=== PATIENT | female | born 1940 | race Caucasian/White ===

== ENCOUNTER 2017-10-09 22:02 | Emergency (ER) | payer MEDICARE, MEDICAID, SELFPAY ==
[2017-10-09] VITALS (11 sets, daily range): BP systolic 137–155; BP diastolic 48–58; PULSE 61–73; RESP 16–21; TEMP 36.8; O2SAT 96–100
--- NOTE | 2017-10-09 00:07 | DI.REPORT_ITS ---
SYMPTOM/DIAGNOSIS: S/P FALL. R/O FX CHEST: Single frontal view. Comparison 02/22/17. Heart size and pulmonary vasculature are stable and within normal limits. Sternal wires are in place. The lungs are clear. The bones appear intact. IMPRESSION: No acute abnormality.
--- NOTE | 2017-10-09 00:07 | DI.REPORT_ITS ---
SYMPTOM/DIAGNOSIS: S/P FALL, R/O FX AP PELVIS: No acute fracture or dislocation is seen. Clips are seen in the pelvis. Mild degenerative changes are seen in the lower lumbar spine in the sacroiliac joints. IMPRESSION: No acute fracture or dislocation.
--- NOTE | 2017-10-09 22:54 | ED.GENADUL ---
Disposition Clinical Impression: Fall, Chronic pain, Generalized weakness, Medication reaction, UTI (urinary tract infection) Disposition: STILL A PATIENT Condition: Stable Medical Decision Making - Lab Data Laboratory Tests 10/09/17 10/09/17 10/09/17 22:58 22:58 23:25 WBC 11.24 H RBC 3.81 L Hgb 10.2 L Hct 32.5 L MCV 85.3 MCH 26.8 L MCHC 31.4 L RDW 17.6 H Plt Count 204 MPV 9.3 Immature Gran % 0.4 Neutrophils % 74.6 Lymphocytes % 13.8 Monocytes % 8.9 Eosinophils % 2.1 Basophils % 0.2 Absolute Neutrophils 8.39 H Absolute Lymphocytes 1.55 Absolute Monocytes 1.00 H Absolute Eosinophils 0.24 Absolute Basophils 0.02 Sodium 138 Potassium 4.0 Chloride 99 Carbon Dioxide 31.3 Anion Gap 7.7 BUN 22 H Creatinine 1.57 H Estimated GFR/1.73 m2 31.95 Glucose 114 H Calcium 9.0 Magnesium 2.5 H Total Bilirubin 0.3 AST 17 ALT 18 Alkaline Phosphatase 82 Troponin I < 0.02 Total Protein 7.5 Albumin 3.2 L Urine Color Yellow Urine Clarity Clear Urine pH 7.0 Ur Specific [place] 1.015 Urine Protein Negative Urine Ketones Trace H Urine Blood Negative Urine Nitrite Negative Urine Bilirubin Negative Urine Urobilinogen 0.2 Ur Leukocyte Esterase Trace H Urine RBC 0-2 Urine WBC >50 Ur Epithelial Cells Few Urine Crystals Negative Urine Bacteria Many Urine Casts Negative Urine Mucus Negative Urine Other Few transitional Ur Culture Indicated? Yes Urine Glucose Negative 10/10/17 2321: [address]pm. Sinus. No acute ST elevation or depression. - Radiology Data Radiology results: report reviewed, image reviewed Pelvis x-ray: Negative Chest x-ray: Negative - Medical Decision Making 77-year-old female who presents for fall while walking with walker today. Daughter state they feel her fall was due to generalized weakness. She has had fatigue, weakness and decreased appetite over the past few days. She also had her gabapentin increased 4 days ago. Patient has multiple medical problems and is poorly conditioned at baseline. She is on tramadol, fentanyl patch and gabapentin, multiple medications which can account for her fatigue and weakness. Due to her multiple comorbidities, will check labs, urinalysis, EKG in addition to CT head/C-spine, chest x-ray and pelvis x-ray. She has chronic head, neck, back pain. She has noticed palpation of her midline thoracic and lumbar spine which she states is chronic and appears no different than usual. She was admitted here 3 months ago for an L1 lumbar spine fracture. She was discharged from rehab 1 month ago. [id number] --labs reviewed and notes UTI. White blood cell count 11.24. Patient afebrile. Will order dose of Rocephin. [id number] -- Case endorsed to Dr. Manzano to f/u on imaging results. History of Present Illness - General Chief complaint: Trauma Stated complaint: DEEJAY Time Seen by Provider: 10/09/17 22:03 Source: patient, family Mode of arrival: EMS Limitations: no limitations - History of Present Illness Initial comments: Patient is a 77-year-old female with multiple medical problems including diabetes, hypertension, morbid obesity presents for fall while walking with walker up a ramp tonight. Daughter states that patient recently had her gabapentin increased from 100 mg to 200 mg 3 times daily 4 days ago[address] Her PCP Dr. pitts increase this for patient's chronic hip and neck pain. She is also on tramadol and fentanyl patch. Daughter does admit to increased fatigue, decreased appetite, and generalized weakness for the past 3 days which they are possibly contributing to her increased fatigue due to the increase in gabapentin. She has history of chronic headaches for 3 months. They state when she walked up the ramp tonight she appeared weak and fell and rolled backward. Patient has chronic pain all over at baseline. She thinks she did hit her head but denies any LOC or vomiting. She is admitting to headache, neck pain, chest pain, back pain after fall. - Related Data Folic Acid [Folate] 1 mg PO DAILY 07/04/12 Cyanocobalamin [Vitamin B-12] 1,000 mcg PO DAILY 07/05/12 Flaxseed Oil [Flax Seed Oil] 1,000 mg PO DAILY 07/05/12 GlipiZIDE [Glucotrol] 10 mg PO BID 07/05/12 Ipratropium/Albuterol Sulfate [Duoneb 0.5 mg-3 mg/3 ml Soln] 3 ml IH QID PRN PRN 07/05/12 Nystatin Powder 15 GM [Mycostatin Powder] 1 gm TP BID PRN PRN 07/05/12 Atorvastatin [Lipitor] 20 mg PO DAILY AM 03/11/13 Nebivolol HCl [Bystolic] 10 mg PO TID 03/11/13 Ticagrelor [Brilinta] 90 mg PO BID 03/11/13 Magnesium Oxide [Mag-Ox 400] 400 mg PO BID #60 tab 07/06/13 AmLODIPine [Norvasc] 5 mg PO DAILY 06/27/14 Nitroglycerin [Nitrostat] 1 tab SL PRN PRN 06/27/14 Dicyclomine [Bentyl] 2 tab PO QID PRN 03/05/15 Meclizine HCl 1 - 2 tab PO TID PRN 03/05/15 Omeprazole [PriLOSEC] 40 mg PO BID@07,199904/01/16 Sertraline [Zoloft] 200 mg PO DAILY 05/17/16 Levalbuterol [Xopenex Hfa] 1 - 2 puff IH Q4H PRN PRN inh 05/18/16 Hydrocortisone [Hydrocortisone 2.5% Lotion] 0 ml TP BID PRN 10/08/16 Loratadine 10 mg PO DAILY 10/08/16 MetroNIDAZOLE 0.75% Cream [Metrocream 0.75% Cream] 1 applic TP BID 10/08/16 Vitamin D 2,000 units PO DAILY 10/08/16 Apixaban [Eliquis] 5 mg PO BID #60 tab 02/02/17 Ubidecarenone/Vit E Acetate [Co Q-10 100 mg Softgel] 1 each PO DAILY 05/24/17 Bisacodyl [Dulcolax Suppository] 10 mg HI DAILY PRN PRN supp 08/02/17 Budesonide/Formoterol Fumarate [Symbicort 160/4.5 Mcg Inhaler] 2 puff IH BID #1 inh 08/02/17 Docusate Sodium [Colace] 100 mg PO TID cap 08/02/17 Gabapentin [Neurontin] 300 mg PO TID #90 cap 08/02/17 PredniSONE [Deltasone] 10 mg PO DAILY #30 tab 08/02/17 TraMADol [Ultram] 50 mg PO Q4H PRN PRN #30 tab 08/02/17 FentaNYL [Duragesic] 25 mcg TD Q72H 10/09/17 Levothyroxine Sodium [Synthroid] 150 mcg PO DAILY AM 10/09/17 Prednisone 9 mg PO TODAY 10/09/17 Spironolactone 25 mg PO DAILY AM 10/09/17 Allergies Allergy/AdvReac Type Severity Reaction Status Date / Time aspirin Allergy Severe Anaphylaxsi Unverified 10/09/17 22:35 s morphine Allergy Intermediate Skin Rash Unverified 10/09/17 22:35 NSAIDS (Non-Steroidal Allergy Intermediate Skin Rash Unverified 10/09/17 22:35 Anti-Inflamma Sulfa (Sulfonamide Allergy Intermediate Skin Rash Unverified 10/09/17 22:35 Antibiotics) Quinidine-Quinine Analogues AdvReac Intermediate high fever Unverified 10/09/17 22:35 (Cincho tetanus and diphtheria AdvReac Intermediate Swelling/Ed Unverified 10/09/17 22:35 toxoids rachel [Tetanus&Diphtheria Toxoid] NADIYA Inhibitors AdvReac Mild cough Unverified 10/09/17 22:35 Review of Systems Constitutional: denies: chills, fever Eyes: denies: eye pain ENT: denies: ear pain, dental pain Respiratory: denies: cough, shortness of breath Cardiovascular: denies: chest pain, dyspnea on exertion Gastrointestinal: denies: abdominal pain, nausea, vomiting Genitourinary: denies: urgency, dysuria, frequency Musculoskeletal: back pain Skin: denies: rash, lesions Neurological: denies: headache, weakness, numbness Past Medical History - Past Medical History Medical history: AMI, asthma, CAD, CHF, COPD, diabetes, GERD, hyperlipidemia, hypertension Chronic kidney disease, lymphoma, Hypothyroidism, Brain aneurysm, GI lymphoma treated w/ chemo, now in remission Surgical history: angioplasty/stent, herniorraphy, bilateral tubal ligation (b/l knee replacements, Fem-pop bypass, cataract surgery, carotid endarterectomy), other (bilateral knee replacements, carotid endarterectomy) Family history: no significant family history - Social History Smoking status: never smoker Alcohol use: none Drug use: none General Exam - General Limitations: no limitations General appearance: alert, in no apparent distress - Head Head exam: Present: atraumatic, normocephalic - Eye Eye exam: Present: PERRL, EOMI - ENT ENT exam: Present: mucous membranes dry - Respiratory Respiratory exam: Present: normal lung sounds bilaterally, other (No evidence of trauma). Absent: respiratory distress, wheezes, rales, rhonchi, stridor, chest wall tenderness - Cardiovascular Cardiovascular Exam: Present: regular rate, normal rhythm. Absent: bradycardia, tachycardia - GI/Abdominal GI/Abdominal exam: Present: soft, normal bowel sounds, other (No evidence of trauma). Absent: distended, tenderness, guarding, rebound, rigid - Extremities Exam Extremities exam: Present: full ROM, normal capillary refill, other (No evidence of trauma or deformity to extremities) - Back Exam Back exam: Present: vertebral tenderness (Thoracic and lumbar which is chronic) - Neurological Exam Neurological exam: Present: alert, oriented X3 - Psychiatric Psychiatric exam: Present: normal affect - Skin Skin exam: Present: warm, dry, intact Course Vital Signs - 24 hr 10/09/17 22:29 Temperature 98.2 F Pulse 70 Respiratory 18 Rate Blood Pressure 155/48 Pulse Oximetry 97
[2017-10-09 23:09] LABS: Abs Immature Grans 0.05 k/cumm (0.0-0.09); Absolute Basophil Count 0.02 k/cumm (0.0-0.2); Absolute Eosinophil Count 0.24 k/cumm (0.0-0.7); Absolute Lymphocyte Count 1.55 k/cumm (1.2-3.4); Basophils % 0.2; Eosinophils % 2.1; HCT 32.5 % (36.0-46.0); HGB 10.2 g/dL (12.0-15.5); Immature Grans % 0.4; Lymphocytes % 13.8; Mean Corp. HGB Concentration 31.4 g/dL (32.0-36.0); Mean Corpuscular Hemoglobin 26.8 pg (27.0-33.0); Mean Corpuscular Volume 85.3 fL (80-95); Mean Platelet Volume 9.3 fL (8.0-11.0); Monocytes % 8.9; Neutrophils % 74.6; Platelet Count 204 x1000/uL (130-400); RBC 3.81 m/cumm (4.00-5.20); RBC Distribution Width 17.6 % (11.7-14.6); White Blood Cell Count 11.24 k/cumm (4.4-10.8)
[2017-10-09 23:16] LABS: Absolute Neutrophil Count 8.39 k/cumm (1.2-6.7)
[2017-10-09 23:26] LABS: ALT 18 U/L (12-78); AST 17 U/L (15-37); Albumin 3.2 g/dL (3.4-5.0); Alkaline Phosphatase 82 U/L (46-116); Anion Gap 7.7 mmol/L (3-11); BUN 22 mg/dL (7-18); Bilirubin, Total 0.3 mg/dL (0.2-1.0); CO2 31.3 mmol/L (21.0-32.0); CREATININE 1.57 mg/dL (0.55-1.02); Chloride 99 mmol/L (98-107); Estimated GFR 31.95 (mL/min/1.73m2); Glucose 114 mg/dL (70-100); Magnesium 2.5 mg/dL (1.8-2.4); Sodium 138 mmol/L (136-145); Total Protein 7.5 g/dL (6.4-8.2)
[2017-10-09 23:30] LABS: Troponin I < 0.02 ng/mL (0.00-0.06)
[2017-10-09 23:35] LABS: Bilirubin Negative (Negative); Blood Negative (Negative); Clarity Clear; Glucose Negative (Negative); Ketones Trace mg/dL (Negative); Leukocyte Esterase Trace (Negative); Nitrite Negative (Negative); Specific Gravity 1.015 (1.005-1.025); Urobilinogen 0.2 EU/dL (Up TO 0.2)
--- NOTE | 2017-10-09 23:50 | DI.RPTCT_ITS ---
SYMPTOM/DIAGNOSIS: S/P FALL, R/O ACUTE FRACTURE CT HEAD: Noncontrast. Comparison 10/02/17. Age appropriate cerebral atrophy and small vessel ischemic disease is seen. No intracranial hemorrhage, midline shift or mass effect is identified. No evidence of an acute infarct is seen. No skull fracture is present. The visualized paranasal sinuses are clear. The mastoid air cells are well pneumatized. IMPRESSION: No acute intracranial process. CT CERVICAL SPINE: Multiple contiguous axial images of the cervical spine were obtained. Sagittal and coronal reformatted images were evaluated on the [facility]'s work station. No acute fractures or subluxations of the cervical spine were identified. There are moderate degenerative change throughout the cervical spine. No prevertebral soft tissue swelling is present. IMPRESSION: No acute fractures or subluxations of the cervical spine.
[2017-10-09 23:51] LABS: Bacteria Many HPF (Negative); C & S Indicated? Yes; Casts Negative LPF (Negative); Crystals Negative HPF (Negative); Epithelial Cells Few HPF (Negative); Mucus Negative (Negative); Other Cells Few Transitional (Negative); RBC 0-2 (0-2); WBC >50 HPF (0-5)
--- NOTE | 2017-10-09 23:52 | NUR.NOTE ---
Nursing Note: pt states that she hurts all over she has generalized pain . no obvious injury to knees or arms back was examined by Dr Quan.
--- NOTE | 2017-10-10 00:17 | DI.VRAD_ITS ---
EXAM: XR Pelvis, 1 or 2 Views EXAM DATE/TIME: 10/09/2017 10:54 PM CLINICAL HISTORY: 77 years old, female; Injury or trauma; Fall; Initial encounter; Blunt trauma (contusions or hematomas); Does not apply; Pelvic region; Injury date: 10/09/17; Injury details: Fell and tumbled, pain all over TECHNIQUE: XR pelvis, 1 or 2 views COMPARISON: CT - ABD PELVIS WO CONTRAST 2017-07-26 23:27 FINDINGS: Bones/joints: No acute fracture. Soft tissues: Unremarkable. IMPRESSION: No acute fracture or dislocation. Dictated and Authenticated by: Jermaine Cardenas MD. Ordering:TONO DE LA GARZA MD
--- NOTE | 2017-10-10 00:18 | DI.VRAD_ITS ---
EXAM: XR Chest, 1 View EXAM DATE/TIME: 10/09/2017 12:10 AM CLINICAL HISTORY: 77 years old, female; Injury or trauma; Fall; Work related; Initial encounter; Blunt trauma (contusions or hematomas); Injury date: 10/09/17; Injury details: Fell and tumbled, pain all over; Prior surgery; Surgery date: 6+ months; Surgery type: Heart surgery TECHNIQUE: XR of the chest, 1 view. COMPARISON: CR - CHEST 2 VIEWS PA,LAT 2017-02-22 16:08 FINDINGS: Lungs: Clear lungs. Pleural space: No pneumothorax. No sizable pleural effusion. Heart/Mediastinum: CABG. No cardiomegaly. Bones/joints: Sternotomy. IMPRESSION: Clear lungs. Dictated and Authenticated by: Jermaine Cardenas MD. Ordering:TONO DE LA GARZA MD
--- NOTE | 2017-10-10 00:25 | DI.VRAD_ITS ---
EXAM: CT Head Without Intravenous Contrast CT Cervical Spine Without Intravenous Contrast CLINICAL HISTORY: 77 years old, female; Injury or trauma; Fall; Initial encounter; Blunt trauma (contusions or hematomas); Consciousness not specified; Injury date: 10/09/17; Injury details: Fell and tumbled; Patient HX: Pain all over TECHNIQUE: Axial computed tomography images of the head/brain and cervical spine without intravenous contrast. All CT scans at this facility use at least one of these dose optimization techniques: automated exposure control; mA and/or kV adjustment per patient size (includes targeted exams where dose is matched to clinical indication); or iterative reconstruction. Coronal and sagittal reformatted images were created and reviewed. COMPARISON: CT - HEAD WITHOUT STROKE PROTOCOL 2017-10-02 02:37 FINDINGS: Brain: Age-related involutional changes and chronic microvascular ischemic disease. No evidence for acute transcortical infarct. No mass effect or midline shift. No extra-axial collection. No acute intracranial hemorrhage. Basal cisterns are patent. Ventricles: No ventriculomegaly. Skull: No acute fracture. Sinuses: No significant disease. No acute sinusitis. Mastoid air cells: Tympanomastoid cavities are clear. Orbits: Bilateral cataract surgery. Vertebrae: No acute fracture or traumatic subluxation. No spondylolisthesis. Facet joint alignments are maintained. Discs/spinal canal/neural foramina: Multilevel degenerative changes of the cervical spine. No acute findings. Other bones/joints: Occipital condyles are intact. The atlantooccipital and atlantoaxial articulations are intact. Soft tissues: No prevertebral soft tissue swelling. IMPRESSION: 1. No evidence for acute transcortical infarct, acute intracranial hemorrhage, or mass effect. 2. No acute fracture or traumatic subluxation involving the cervical spine. Dictated and Authenticated by: Jermaine Cardenas MD. Ordering:TONO DE LA GARZA MD
[2017-10-10] MEDS: Normal Saline 1,000 ML 100 ML IV (00:37)
[2017-10-10] MEDS: Normal Saline Flush 10 ML SYR IVP (00:37)
[2017-10-10 01:54] VITALS: BP 133/43; PULSE 66; RESP 18; TEMP 36.7; O2SAT 94
--- NOTE | 2017-10-10 02:21 | ED.FU ---
Disposition Clinical Impression: Fall, Chronic pain, Generalized weakness, Medication reaction, UTI (urinary tract infection) Disposition: HOME Condition: Fair Instructions: Urinary Tract Infection in Women (ED), Chronic Pain (ED), Weakness (ED) Additional Instructions: Start antibiotics this evening. Follow-up with primary care this week to be sure you are doing better. Return to ED for fever, chills, vomiting, inability to ambulate, other concerns. Prescriptions: Amoxicillin 875/Clav. 125 [Augmentin 875-125 Tablet] 1 each PO BID #20 tab Referrals: Perry Graham [Primary Care Provider] - Medical Decision Making - Lab Data Laboratory Tests 10/09/17 10/09/17 10/09/17 22:58 22:58 23:25 WBC 11.24 H RBC 3.81 L Hgb 10.2 L Hct 32.5 L MCV 85.3 MCH 26.8 L MCHC 31.4 L RDW 17.6 H Plt Count 204 MPV 9.3 Immature Gran % 0.4 Neutrophils % 74.6 Lymphocytes % 13.8 Monocytes % 8.9 Eosinophils % 2.1 Basophils % 0.2 Absolute Neutrophils 8.39 H Absolute Lymphocytes 1.55 Absolute Monocytes 1.00 H Absolute Eosinophils 0.24 Absolute Basophils 0.02 Sodium 138 Potassium 4.0 Chloride 99 Carbon Dioxide 31.3 Anion Gap 7.7 BUN 22 H Creatinine 1.57 H Estimated GFR/1.73 m2 31.95 Glucose 114 H Calcium 9.0 Magnesium 2.5 H Total Bilirubin 0.3 AST 17 ALT 18 Alkaline Phosphatase 82 Troponin I < 0.02 Total Protein 7.5 Albumin 3.2 L Urine Color Yellow Urine Clarity Clear Urine pH 7.0 Ur Specific [place] 1.015 Urine Protein Negative Urine Ketones Trace H Urine Blood Negative Urine Nitrite Negative Urine Bilirubin Negative Urine Urobilinogen 0.2 Ur Leukocyte Esterase Trace H Urine RBC 0-2 Urine WBC >50 Ur Epithelial Cells Few Urine Crystals Negative Urine Bacteria Many Urine Casts Negative Urine Mucus Negative Urine Other Few transitional Ur Culture Indicated? Yes Urine Glucose Negative Results reviewed for labs ordered during visit: Yes - Radiology Data Radiology results: report reviewed - Medical Decision Making Imaging studies are negative for acute or traumatic findings. Specifically head and cervical spine are negative for traumatic injury. Chest x-ray and pelvis x-ray negative as well. Laboratory studies are for the most part good. She has some evidence of mild dehydration and has received a fluid bolus. She also has evidence of UTI but has no fever, rigors, flank pain, abdominal pain. She does not look toxic. She was given a dose of IV ceftriaxone. Patient has been up and ambulated through the department. She actually did well. She is complaining more of her chronic pain than anything else. I have told her in the family that chronic pain must be managed as an outpatient which is what her primary care is doing. It is not an indication for admission. Indications for admission would be inability to ambulate because of severe weakness, vomiting, fevers, rigors. She has none of these. She actually at this point wants to try to go home. We will place her on Augmentin and have her follow-up with primary care this week. Return to ED for any worsening symptoms. Discussed with family and patient. Care Signed Out By:: Dr. Cabello - Vital Signs Recent Vitals - 8H: Vital Signs - 8 hr 10/09/17 10/09/17 10/09/17 22:11 22:17 22:20 Temperature Pulse 63 Respiratory 21 19 19 Rate Blood Pressure 137/51 Pulse Oximetry 99 99 100 10/09/17 10/09/17 10/09/17 22:29 22:30 22:31 Temperature 98.2 F Pulse 70 65 Respiratory 18 16 16 Rate Blood Pressure 155/48 146/58 Pulse Oximetry 97 97 96 10/09/17 10/09/17 10/09/17 22:40 22:50 23:00 Temperature Pulse Respiratory 21 19 18 Rate Blood Pressure Pulse Oximetry 98 99 10/09/17 10/09/17 10/10/17 23:10 23:20 01:54 Temperature 98.1 F Pulse 66 Respiratory 19 20 18 Rate Blood Pressure 133/43 Pulse Oximetry 99 94 L - Continuation of Care Continuation of Care Plan: Patient had presented status post fall at home. She was trying to go up a ramp and got weak and fell. She did not have syncope. She has chronic pain. She has been having her pain medications adjusted and recently went up on her gabapentin. She was initially seen and evaluated by Dr. Cabello. She was signed over to me pending imaging studies and return of all laboratory results.
== END 2017-10-10 02:41 | disposition home or self-care (01) ==
PROVIDERS: Physician Assistant; Emergency Provider Emergency Medicine; PCP Family Medicine
DX: R53.1 Weakness (principal); T40.2X5A Adverse effect of other opioids, initial encounter; R51 Headache; G89.29 Other chronic pain; N39.0 Urinary tract infection, site not specified; I12.9 Hypertensive chronic kidney disease with stage 1 through stage 4 chronic kidney disease, or unspecified chronic kidney disease; N18.9 Chronic kidney disease, unspecified; E11.22 Type 2 diabetes mellitus with diabetic chronic kidney disease; Z79.4 Long term (current) use of insulin; J44.9 Chronic obstructive pulmonary disease, unspecified
CPT/HCPCS: 70450; 71045; 72125; 72170; 93005; 96374; 99285 ×2; J0696; 36415; 80053; 87077; 81003; 81015; 83735; 84484; 85025; 87086; 87186; 93010

== ENCOUNTER 2018-01-14 10:59 | Emergency (ER) | payer MEDICARE, MEDICAID, SELFPAY ==
[2018-01-14 11:04] VITALS: BP 155/65; PULSE 58; RESP 16; TEMP 36.5; O2SAT 95
[2018-01-14 11:28] LABS: Bilirubin Negative (Negative); Blood Large (Negative); Clarity Sl Cloudy; Glucose Negative (Negative); Ketones Negative (Negative); Leukocyte Esterase Moderate (Negative); Nitrite Positive (Negative); Urobilinogen 0.2 EU/dL (Up TO 0.2); pH 5.5 (5-8)
--- NOTE | 2018-01-14 11:33 | ED.GENADUL_ITS ---
Discharge Plan Discharge Details Chief Complaint: Urinary Primary Care Provider: Perry Graham ED Provider: Guzman Cheek Home Meds and New Rx's Prescriptions: No Action folic acid 1 MG tablet 1 mg PO DAILY RF: 0 glipizide 10 MG tablet 10 mg PO BID RF: 0 cyanocobalamin (vitamin B-12) [Vitamin B-12] 1,000 MCG tablet 1,000 mcg PO DAILY RF: 0 flaxseed oil 1,000 MG capsule 1,000 mg PO DAILY RF: 0 nystatin 15 GM powder 1 gm Topical BID PRN PRNRF: 0 atorvastatin [Lipitor] 40 MG tablet 20 mg PO DAILY AM RF: 0 ticagrelor [Brilinta] 90 MG tablet 90 mg PO BID RF: 0 nebivolol [Bystolic] 20 MG tablet 10 mg PO TID RF: 0 magnesium oxide 400 MG tablet 400 mg PO BID Qty: 60 RF: 0 amlodipine 10 MG tablet 5 mg PO DAILY RF: 0 nitroglycerin [Nitrostat] 0.4 MG tablet, sublingual 1 tab Sublingual PRN PRNRF: 0 apixaban [Eliquis] 5 MG tablet 5 mg PO BID Qty: 60 RF: 2 omeprazole 20 MG capsule,delayed release(DR/EC) 40 mg PO BID@ RF: 0 sertraline 100 MG tablet 200 mg PO DAILY RF: 0 levalbuterol tartrate [Xopenex HFA] 200 PUFF HFA aerosol inhaler 1 - 2 puff Inhalation Q4H PRN PRNRF: 0 cholecalciferol (vitamin D3) 1,000 UNITS tablet 2,000 units PO DAILY RF: 0 Loratadine 10 MG Capsule 10 mg PO DAILY RF: 0 coenzyme [id number] E [Co Q-10 (with Vit E)] 1 EACH capsule 1 ea PO DAILY RF: 0 tramadol 50 MG tablet 50 mg PO Q4H PRN PRN (Reason: Breakthrough Pain) Qty: 30 RF: 0 docusate sodium [Colace] 100 MG capsule 100 mg PO TID RF: 0 gabapentin 300 MG capsule 300 mg PO TID Qty: 90 RF: 0 budesonide-formoterol [Symbicort] 60 PUFF HFA aerosol inhaler 2 puff Inhalation BID Qty: 1 RF: 0 fentanyl 12 MCG patch 72 hour 25 mcg Transdermal Q72H RF: 0 levothyroxine [Synthroid] 150 MCG tablet 150 mcg PO DAILY AM RF: 0 spironolactone 25 MG tablet 25 mg PO DAILY AM RF: 0 prednisone 1 MG tablet 9 mg PO TODAY RF: 0 amoxicillin-pot clavulanate 1 TAB tablet 1 ea PO BID Qty: 20 RF: 0 Medical Decision Making 77 yo female comes in with what she thinks is blood in her urine as her depends have had blood in them intermittently since last night. Denies fevers, chills, abdominal pain. Has had 50 pounds of weight loss over the past few months unintentionally. SHe is unsure if the blood is urinary or from the vagina. Has chronic back pain that is unchanged and no cva tenderness. Will check UA and cbc and coags. Will also perform speculum exam to see if the bleeding is coming from the vagina Differential Diagnosis uti, bladder cancer, uterine cancer HPI General Mode of arrival: ambulatory . Date/Time Provider Initiated Documentation: 01/14/18 11:05 . Limitations to Documentation: no limitations . Information obtained by: patient and family . History of Present Illness 77 year old F presents to the emergency department with the chief complaint of blood in depends, Patient started experiencing this day(s) (1) No relieving factors improve symptom(s), No exacerbating factors reported . Patient did receive the following treatments prior to arrival, none Related Data Home Medications Medication Instructions Recorded Confirmed folic acid 1 mg PO DAILY 07/04/12 10/09/17 cyanocobalamin (vitamin B-12) 1,000 mcg PO DAILY 07/05/12 10/09/17 [Vitamin B-12] flaxseed oil 1,000 mg PO DAILY 07/05/12 10/09/17 glipizide 10 mg PO BID 07/05/12 10/09/17 nystatin 1 gm TOPICAL BID PRN PRN 07/05/12 10/09/17 atorvastatin [Lipitor] 20 mg PO DAILY AM 03/11/13 10/09/17 nebivolol [Bystolic] 10 mg PO TID 03/11/13 10/09/17 ticagrelor [Brilinta] 90 mg PO BID 03/11/13 10/09/17 magnesium oxide 400 mg PO BID #60 tab 07/06/13 10/09/17 amlodipine 5 mg PO DAILY 06/27/14 10/09/17 nitroglycerin [Nitrostat] 1 tab SUBLINGUAL PRN PRN 06/27/14 10/09/17 omeprazole 40 mg PO BID@0730,199904/01/16 10/09/17 sertraline 200 mg PO DAILY 05/17/16 10/09/17 levalbuterol tartrate [Xopenex HFA] 1 - 2 puff INHALATION Q4H PRN PRN 05/18/16 10/09/17 inh Loratadine 10 mg PO DAILY 10/08/16 10/09/17 cholecalciferol (vitamin D3) 2,000 units PO DAILY 10/08/16 10/09/17 apixaban [Eliquis] 5 mg PO BID #60 tab 02/02/17 10/09/17 coenzyme A70-[id number] E [Co Q-10 1 ea PO DAILY 05/24/17 10/09/17 (with Vit E)] budesonide-formoterol [Symbicort] 2 puff INHALATION BID #1 inh 08/02/17 10/09/17 docusate sodium [Colace] 100 mg PO TID cap 08/02/17 10/09/17 gabapentin 300 mg PO TID #90 cap 08/02/17 10/09/17 tramadol 50 mg PO Q4H PRN PRN #30 tab 08/02/17 10/09/17 fentanyl 25 mcg TRANSDERMAL Q72H 10/09/17 10/09/17 levothyroxine [Synthroid] 150 mcg PO DAILY AM 10/09/17 10/09/17 prednisone 9 mg PO TODAY 10/09/17 10/09/17 spironolactone 25 mg PO DAILY AM 10/09/17 10/09/17 amoxicillin-pot clavulanate 1 ea PO BID #20 tab 10/10/17 Previous Rx's Medication Instructions Recorded magnesium oxide 400 mg PO BID #60 tab 07/06/13 levalbuterol tartrate [Xopenex HFA] 1 - 2 puff INHALATION Q4H PRN PRN 05/18/16 inh apixaban [Eliquis] 5 mg PO BID #60 tab 02/02/17 budesonide-formoterol [Symbicort] 2 puff INHALATION BID #1 inh 08/02/17 docusate sodium [Colace] 100 mg PO TID cap 08/02/17 gabapentin 300 mg PO TID #90 cap 08/02/17 tramadol 50 mg PO Q4H PRN PRN #30 tab 08/02/17 amoxicillin-pot clavulanate 1 ea PO BID #20 tab 10/10/17 Allergies Allergy/AdvReac Type Severity Reaction Status Date / Time aspirin Allergy Severe Anaphylaxsi Unverified 10/09/17 22:35 s morphine Allergy Intermediate Skin Rash Unverified 10/09/17 22:35 NSAIDS (Non-Steroidal Allergy Intermediate Skin Rash Unverified 10/09/17 22:35 Anti-Inflamma Sulfa (Sulfonamide Allergy Intermediate Skin Rash Unverified 10/09/17 22:35 Antibiotics) Quinidine-Quinine Analogues AdvReac Intermediate high fever Unverified 10/09/17 22:35 (Cincho tetanus and diphtheria AdvReac Intermediate Swelling/Ed Unverified 10/09/17 22: 35 toxoids rachel [Tetanus&Diphtheria Toxoid] NADIYA Inhibitors AdvReac Mild cough Unverified 10/09/17 22:35 General Stated Complaint: Urinary ELISE: 4 Review of Systems Review of Systems All systems reviewed & are unremarkable except as noted in HPI and below Constitutional Denies chills and Denies fever(s) Eyes Denies loss of vision ENT Denies change in voice Cardiovascular Denies chest pain and Denies dyspnea Respiratory Denies dyspnea Gastrointestinal Denies abdominal pain, Denies nausea and Denies vomiting Genitourinary Denies dysuria Musculoskeletal Denies joint swelling Integumentary/Breasts Denies rash Neurologic Denies loss of vision Psychiatric Denies depression Endocrine Denies cold intolerance and Denies heat intolerance Allergic/Immunologic Denies urticaria PFSH Medical History Anemia Anxiety Asthma CAD (coronary artery disease) DM (diabetes mellitus) Hx of CABG Hypothyroidism PVD (peripheral vascular disease) Social History Smoking/Tobacco Use Status: Never Exam Const General: no acute distress Orientation: alert [facility] Head: normal to inspection Ears: external ears normal General nose exam: external nose normal Mouth: moist mucous membranes Eyes General: appearance normal, both eyes and all related structures Neck Neck: normal visual inspection Resp Effort & Inspection: normal respiratory effort and able to speak in complete sentences Cardio Rate: regular rate Skin General skin exam: no rashes or lesions noted Neuro General: alert and oriented x3 Extrem General: normal to inspection Psych Mental Status: mental status grossly normal Course Vital Signs Temperature 36.5 C 01/14/18 11:04 Pulse 58 L 01/14/18 11:04 Respiratory Rate 16 01/14/18 11:04 Blood Pressure 155/65 H 01/14/18 11:04 Pulse Oximetry 95 01/14/18 11:04 Temperature 36.5 C 01/14/18 11:04 Temperature Source Temporal Artery Scan 01/14/18 11:04 Pulse 58 L 01/14/18 11:04 Respiratory Rate 16 01/14/18 11:04 Blood Pressure 155/65 H 01/14/18 11:04 Blood Pressure Position Sitting 01/14/18 11:04 Pulse Oximetry 95 01/14/18 11:04 Oxygen Delivery Method Room Air 01/14/18 11:04 Oxygen Flow Rate 0 01/14/18 11:04 Pain Level 5 01/14/18 11:04
[2018-01-14 11:40] LABS: Bacteria Many HPF (Negative); C & S Indicated? No/Sq. Contamination; Casts Negative LPF (Negative); Crystals Negative HPF (Negative); Epithelial Cells Moderate HPF (Negative); Mucus Negative (Negative); Other Cells Rare Renal (Negative); RBC 20-50 (0-2); WBC >50 HPF (0-5)
[2018-01-14 12:12] LABS: Abs Immature Grans 0.04 k/cumm (0.0-0.09); Absolute Lymphocyte Count 1.78 k/cumm (1.2-3.4); Absolute Monocyte Count 0.71 k/cumm (0.11-0.7); Absolute Neutrophil Count 8.52 k/cumm (1.2-6.7); Basophils % 0.4; Eosinophils % 2.5; HCT 30.1 % (36.0-46.0); Immature Grans % 0.4; Lymphocytes % 15.6; Mean Corp. HGB Concentration 31.2 g/dL (32.0-36.0); Mean Corpuscular Hemoglobin 26.2 pg (27.0-33.0); Mean Corpuscular Volume 83.8 fL (80-95); Mean Platelet Volume 9.3 fL (8.0-11.0); Monocytes % 6.2; Neutrophils % 74.9; Platelet Count 252 x1000/uL (130-400); RBC 3.59 m/cumm (4.00-5.20); RBC Distribution Width 17.1 % (11.7-14.6); White Blood Cell Count 11.38 k/cumm (4.4-10.8)
[2018-01-14 12:16] LABS: Absolute Basophil Count 0.05 k/cumm (0.0-0.2); Absolute Eosinophil Count 0.28 k/cumm (0.0-0.7)
[2018-01-14 12:18] LABS: HGB 9.4 g/dL (12.0-15.5)
[2018-01-14 12:24] LABS: ALT 18 U/L (12-78); AST 22 U/L (15-37); Albumin 3.2 g/dL (3.4-5.0); Alkaline Phosphatase 89 U/L (46-116); Anion Gap 8.3 mmol/L (3-11); BUN 22 mg/dL (7-18); Bilirubin, Total 0.5 mg/dL (0.2-1.0); CO2 28.7 mmol/L (21.0-32.0); CREATININE 1.25 mg/dL (0.55-1.02); Chloride 100 mmol/L (98-107); Estimated GFR 41.56 (mL/min/1.73m2); Glucose 63 mg/dL (70-100); Potassium 3.8 mmol/L (3.5-5.1); Sodium 137 mmol/L (136-145); Total Protein 7.9 g/dL (6.4-8.2)
[2018-01-14 12:28] LABS: PTT Activated 28.9 sec (21.0-31.4); Prothrombin Time 11.2 sec (9.3-10.8)
[2018-01-14 12:34] LABS: INR 1.1 (1.0-3.5)
== END 2018-01-14 12:46 | disposition home or self-care (01) ==
LOC: ER 12:47
PROVIDERS: Emergency Provider Emergency Medicine; PCP Family Medicine
DX: N93.9 Abnormal uterine and vaginal bleeding, unspecified (principal); N39.0 Urinary tract infection, site not specified; R63.4 Abnormal weight loss; Z79.01 Long term (current) use of anticoagulants; I12.9 Hypertensive chronic kidney disease with stage 1 through stage 4 chronic kidney disease, or unspecified chronic kidney disease; N18.9 Chronic kidney disease, unspecified; E11.22 Type 2 diabetes mellitus with diabetic chronic kidney disease
CPT/HCPCS: 36415; 80053; 99284; 81003; 81015; 85025; 85610; 85730

== ENCOUNTER 2018-03-05 07:09 | Inpatient (IN) | payer MEDICARE, MEDICAID, SELFPAY ==
[2018-03-05] VITALS (66 sets, daily range): BP systolic 101–164; BP diastolic 35–105; PULSE 49–63; RESP 12–27; TEMP 36.5–37.1; O2SAT 82–99
--- NOTE | 2018-03-05 07:19 | DI.CT_ITS ---
SYMPTOM/DIAGNOSIS: PAIN, S/P FALL, ON ELIQUIS NONCONTRAST HEAD CT: Comparison is made with 10/09/17. No intracranial hemorrhage, mass or acute infarct is seen. There is mild atrophy and mild patchiness of the white matter consistent with small vessel disease again noted. There is no change in ventricular size. There is no evidence of skull fracture. The sinuses and mastoid air cells are unremarkable. IMPRESSION: No acute abnormality. CERVICAL SPINE CT: The exam is somewhat limited by motion. There is no evidence of an acute fracture. There are degenerative disc changes greatest at C 3-4 and C 5-6. IMPRESSION: Degenerative changes. No acute abnormality. LUMBAR SPINE CT: Comparison is made with 07/26/17. The previous exam showed a mild compression fracture of the superior endplate of L 1. There is now severe compression fracture of L 1 of approximately two thirds. There is now also mild compression fracture of the superior endplate of L 3. Degenerative disc changes and facet degenerative changes are noted. IMPRESSION: Acute mild compression fracture of L 3. Interval worsening of the previously noted L 1 compression fracture, now severe.
--- NOTE | 2018-03-05 07:21 | ED.GENADUL_ITS ---
Discharge Plan Disposition Patient Disposition: STILL A PATIENT Condition: Stable Discharge Details Chief Complaint: GenMedical Clinical Impression: Fall Reason For Visit: DEEJAY Primary Care Provider: Perry Graham ED Provider: Guzman Cheek Home Meds and New Rx's Prescriptions: No Action folic acid 1 MG tablet 1 mg PO DAILY RF: 0 glipizide 10 MG tablet 10 mg PO BID RF: 0 cyanocobalamin (vitamin B-12) [Vitamin B-12] 1,000 MCG tablet 1,000 mcg PO DAILY RF: 0 flaxseed oil 1,000 MG capsule 1,000 mg PO DAILY RF: 0 nystatin 15 GM powder 1 gm Topical BID PRN PRNRF: 0 atorvastatin [Lipitor] 40 MG tablet 20 mg PO DAILY AM RF: 0 ticagrelor [Brilinta] 90 MG tablet 90 mg PO BID RF: 0 nebivolol [Bystolic] 20 MG tablet 10 mg PO TID RF: 0 magnesium oxide 400 MG tablet 400 mg PO BID Qty: 60 RF: 0 amlodipine 10 MG tablet 5 mg PO DAILY RF: 0 nitroglycerin [Nitrostat] 0.4 MG tablet, sublingual 1 tab Sublingual PRN PRNRF: 0 apixaban [Eliquis] 5 MG tablet 5 mg PO BID Qty: 60 RF: 2 omeprazole 20 MG capsule,delayed release(DR/EC) 40 mg PO BID@729,1999 RF: 0 sertraline 100 MG tablet 200 mg PO DAILY RF: 0 levalbuterol tartrate [Xopenex HFA] 200 PUFF HFA aerosol inhaler 1 - 2 puff Inhalation Q4H PRN PRNRF: 0 cholecalciferol (vitamin D3) 1,000 UNITS tablet 2,000 units PO DAILY RF: 0 Loratadine 10 MG Capsule 10 mg PO DAILY RF: 0 coenzyme [id number] E [Co Q-10 (with Vit E)] 1 EACH capsule 1 ea PO DAILY RF: 0 tramadol 50 MG tablet 50 mg PO Q4H PRN PRN (Reason: Breakthrough Pain) Qty: 30 RF: 0 docusate sodium [Colace] 100 MG capsule 100 mg PO TID RF: 0 gabapentin 300 MG capsule 300 mg PO TID Qty: 90 RF: 0 budesonide-formoterol [Symbicort] 60 PUFF HFA aerosol inhaler 2 puff Inhalation BID Qty: 1 RF: 0 fentanyl 12 MCG patch 72 hour 25 mcg Transdermal Q72H RF: 0 levothyroxine [Synthroid] 150 MCG tablet 150 mcg PO DAILY AM RF: 0 spironolactone 25 MG tablet 25 mg PO DAILY AM RF: 0 prednisone 1 MG tablet 9 mg PO TODAY RF: 0 amoxicillin-pot clavulanate 1 TAB tablet 1 ea PO BID Qty: 20 RF: 0 ciprofloxacin HCl 500 mg tablet 500 mg PO BID Qty: 14 RF: 0 Medical Decision Making 77 yo female with hx of pe's on eliquis comes in after a fall. She states her walker gave out when a spring broke and she fell, denies loc. Denies preceding symptoms such as chest pain, sob, abd pain and has none now. Has mild headache, lower left neck pain and lumbar pain in the midline without saddle anesthesia. Has no pain in extremities and has full rom. No abdominal tenderness. Will image head and c spine and lumbar spine pt to be signed out to oncoming provider to f/u on imaging and dispostiion Differential Diagnosis tbi, strain, contusion HPI General Mode of arrival: EMS . Date/Time Provider Initiated Documentation: 03/05/18 07:14 . Limitations to Documentation: no limitations . Information obtained by: patient . History of Present Illness 77 year old F presents to the emergency department with the chief complaint of fall, described as moderate, and is localized to the head. Patient reports no radiation. Patient started experiencing this hour(s) (1) and it has been constant. No relieving factors improve symptom(s), No exacerbating factors reported . Patient notes other (back pain). Patient did receive the following treatments prior to arrival, none Related Data Home Medications Medication Instructions Recorded Confirmed folic acid 1 mg PO DAILY 07/04/12 01/14/18 cyanocobalamin (vitamin B-12) 1,000 mcg PO DAILY 07/05/12 01/14/18 [Vitamin B-12] flaxseed oil 1,000 mg PO DAILY 07/05/12 01/14/18 glipizide 10 mg PO BID 07/05/12 01/14/18 nystatin 1 gm TOPICAL BID PRN PRN 07/05/12 01/14/18 atorvastatin [Lipitor] 20 mg PO DAILY AM 03/11/13 01/14/18 nebivolol [Bystolic] 10 mg PO TID 03/11/13 01/14/18 ticagrelor [Brilinta] 90 mg PO BID 03/11/13 01/14/18 magnesium oxide 400 mg PO BID #60 tab 07/06/13 01/14/18 amlodipine 5 mg PO DAILY 06/27/14 01/14/18 nitroglycerin [Nitrostat] 1 tab SUBLINGUAL PRN PRN 06/27/14 01/14/18 omeprazole 40 mg PO BID@07,199904/01/16 01/14/18 sertraline 200 mg PO DAILY 05/17/16 01/14/18 levalbuterol tartrate [Xopenex HFA] 1 - 2 puff INHALATION Q4H PRN PRN 05/18/16 01/14/18 inh Loratadine 10 mg PO DAILY 10/08/16 01/14/18 cholecalciferol (vitamin D3) 2,000 units PO DAILY 10/08/16 01/14/18 apixaban [Eliquis] 5 mg PO BID #60 tab 02/02/17 01/14/18 coenzyme Q30-[id number] E [Co Q-10 1 ea PO DAILY 05/24/17 01/14/18 (with Vit E)] budesonide-formoterol [Symbicort] 2 puff INHALATION BID #1 inh 08/02/17 01/14/18 docusate sodium [Colace] 100 mg PO TID cap 08/02/17 01/14/18 gabapentin 300 mg PO TID #90 cap 08/02/17 01/14/18 tramadol 50 mg PO Q4H PRN PRN #30 tab 08/02/17 01/14/18 fentanyl 25 mcg TRANSDERMAL Q72H 10/09/17 01/14/18 levothyroxine [Synthroid] 150 mcg PO DAILY AM 10/09/17 01/14/18 prednisone 9 mg PO TODAY 10/09/17 01/14/18 spironolactone 25 mg PO DAILY AM 10/09/17 01/14/18 amoxicillin-pot clavulanate 1 ea PO BID #20 tab 10/10/17 01/14/18 ciprofloxacin HCl 500 mg PO BID #14 tab 01/14/18 Previous Rx's Medication Instructions Recorded magnesium oxide 400 mg PO BID #60 tab 07/06/13 levalbuterol tartrate [Xopenex HFA] 1 - 2 puff INHALATION Q4H PRN PRN 05/18/16 inh apixaban [Eliquis] 5 mg PO BID #60 tab 02/02/17 budesonide-formoterol [Symbicort] 2 puff INHALATION BID #1 inh 08/02/17 docusate sodium [Colace] 100 mg PO TID cap 08/02/17 gabapentin 300 mg PO TID #90 cap 08/02/17 tramadol 50 mg PO Q4H PRN PRN #30 tab 08/02/17 amoxicillin-pot clavulanate 1 ea PO BID #20 tab 10/10/17 ciprofloxacin HCl 500 mg PO BID #14 tab 01/14/18 Allergies Allergy/AdvReac Type Severity Reaction Status Date / Time aspirin Allergy Severe Anaphylaxsi Unverified 10/09/17 22:35 s morphine Allergy Intermediate Skin Rash Unverified 10/09/17 22:35 NSAIDS (Non-Steroidal Allergy Intermediate Skin Rash Unverified 10/09/17 22:35 Anti-Inflamma Sulfa (Sulfonamide Allergy Intermediate Skin Rash Unverified 10/09/17 22:35 Antibiotics) Quinidine-Quinine Analogues AdvReac Intermediate high fever Unverified 10/09/17 22:35 (Cincho tetanus and diphtheria AdvReac Intermediate Swelling/Ed Unverified 10/09/17 22:35 toxoids rachel [Tetanus&Diphtheria Toxoid] NADIYA Inhibitors AdvReac Mild cough Unverified 10/09/17 22:35 General Stated Complaint: GenMedical ELISE: 3 Review of Systems Review of Systems All systems reviewed & are unremarkable except as noted in HPI and below Constitutional Denies chills, Denies fever(s) and Denies weakness Eyes Denies loss of vision ENT Denies change in voice Cardiovascular Denies chest pain and Denies dyspnea Respiratory Denies dyspnea Gastrointestinal Denies abdominal pain, Denies nausea and Denies vomiting Genitourinary Denies dysuria Musculoskeletal Denies joint swelling Integumentary/Breasts Denies rash Neurologic Denies loss of vision and Denies weakness Psychiatric Denies depression PFSH Social History Smoking/Tobacco Use Status: Never Exam Const General: no acute distress Orientation: alert HENMT Head: normal to inspection Ears: external ears normal General nose exam: external nose normal Mouth: moist mucous membranes Eyes General: appearance normal, both eyes and all related structures Neck Neck: normal visual inspection Resp Effort & Inspection: normal respiratory effort and able to speak in complete sentences Cardio Rate: regular rate Back/Spine/Pelvis Back: no CVA tenderness Skin General skin exam: no rashes or lesions noted Neuro General: alert and oriented x3 Extrem General: normal to inspection Psych Mental Status: mental status grossly normal Course Vital Signs Temperature 37.1 C 03/05/18 07:04 Pulse 63 03/05/18 07:04 Respiratory Rate 16 03/05/18 07:04 Blood Pressure 139/57 L 03/05/18 07:04 Pulse Oximetry 99 03/05/18 07:04 Temperature 37.1 C 03/05/18 07:04 Temperature Source Temporal Artery Scan 03/05/18 07:04 Pulse 63 03/05/18 07:04 Respiratory Rate 16 03/05/18 07:04 Blood Pressure 139/57 L 03/05/18 07:04 Blood Pressure Position Sitting 03/05/18 07:04 Pulse Oximetry 99 03/05/18 07:04 Oxygen Delivery Method Room Air 03/05/18 07:04 Oxygen Flow Rate 0 03/05/18 07:04 Pain Level 10 03/05/18 07:04 Comment 03/05/18 07:04
[2018-03-05] MEDS: Acetaminophen 500 MG TAB (07:26)
--- NOTE | 2018-03-05 08:25 | DI.VRAD_ITS ---
EXAM: CT Head Without Contrast EXAM DATE/TIME: 03/05/2018 7:20 AM CLINICAL HISTORY: 77 years old, female; Injury or trauma; Fall; Initial encounter; Sprain or strain, cervical ligaments TECHNIQUE: Axial computed tomography images of the head/brain without contrast. Coronal and sagittal reformatted images were created and reviewed. COMPARISON: No relevant prior studies available. FINDINGS: Brain: Moderate cerebral atrophy. Patchy low attenuation in the periventricular white matter, consistent with small vessel ischemic change. No hemorrhage. Ventricles: Normal. No ventriculomegaly. Bones/joints: Normal. No acute fracture. Sinuses: Mild mucosal thickening, right ethmoid and both maxillary sinuses. Polyp/retention cyst, right ethmoid sinus. Polyp/retention cyst, left maxillary sinus. Mastoid air cells: Normal as visualized. No mastoid effusion. Soft tissues: Unremarkable. IMPRESSION: No acute intracranial abnormalities. EXAM: CT Cervical Spine Without Contrast EXAM DATE/TIME: 03/05/2018 7:20 AM CLINICAL HISTORY: 77 years old, female; Injury or trauma; Fall; Initial encounter; Sprain or strain, cervical ligaments TECHNIQUE: Axial computed tomography images of the cervical spine without intravenous contrast. Coronal and sagittal reformatted images were created and reviewed. COMPARISON: No relevant prior studies available. FINDINGS: Vertebrae: Scattered facet joint arthropathy, moderate. Mild torticollis, convex to the right. Good alignment. No fractures. Discs/Spinal canal/Neural foramina: Multilevel degenerative disc changes, mild to moderate. Degenerative disc changes most prominent at C5-6. Soft tissues: Unremarkable. Lungs: Lung apices are normal. Vasculature: Bilateral carotid artery calcification, mild. IMPRESSION: 1. No acute findings. 2. No fractures. Dictated and Authenticated by: Elliott Ford MD. Ordering:SHELIA Hinds MD
--- NOTE | 2018-03-05 08:53 | DI.VRAD_ITS ---
Addendum created by Gabriele Prince MD on 03/05/2018 9:24:46 AM EST Addendum: Prior study from July 2017 has been obtained. Significant compression has occurred in L1 since July. Initial report created on 03/05/2018 8:53:39 AM EST EXAM: CT Lumbar Spine Without Contrast EXAM DATE/TIME: 03/05/2018 7:20 AM CLINICAL HISTORY: 77 years old, female; Injury or trauma; Fall; Initial encounter; Sprain or strain, lumbar ligaments TECHNIQUE: Axial computed tomography images of the lumbar spine without intravenous contrast. Coronal and sagittal reformatted images were created and reviewed. COMPARISON: Lumbar spine 07/26/17. Only the report is available for review. Prior images have been requested FINDINGS: Vertebrae: Acute compression fracture of L3 of 13%. No retropulsion of fracture fragments. There is significant compression of L1 which was described as mild on the prior study. It now has over 60% compression. It is unhealed. Consequently it has progressed. Discs/Spinal canal/Neural foramina: Broad-based disc bulge at T12/L1 and L1/L2. Large disc herniation at L2/L3 in the midline and to the left (3:32). Broad-based disc bulge, facet hypertrophy, and ligament hypertrophy at L3/L4 and L4/L5 consistent with spinal stenosis. Focal disc herniation at L5/S1 Soft tissues: Unremarkable. Gallbladder and bile ducts: Possible gallstones in the gallbladder Normal appendix IMPRESSION: 1. There is significant compression of L1 which was described as mild on the prior study. It now has over 60% compression. It is unhealed. Consequently it has progressed. 2. Acute compression fracture of L3 of 13%. No retropulsion of fracture fragments. 3. Broad-based disc bulge at T12/L1 and L1/L2. Recommend MRI 4. Large disc herniation at L2/L3 in the midline and to the left (3:32). Recommend MRI 5. Broad-based disc bulge, facet hypertrophy, and ligament hypertrophy at L3/L4 and L4/L5 consistent with spinal stenosis. Recommend MRI 6. Focal disc herniation at L5/S1. Recommend MRI Dictated and Authenticated by: Gabriele Prince MD. Ordering:SHELIA Hinds MD
--- NOTE | 2018-03-05 10:48 | NUR.NOTE ---
pt. is resting comfortably, awaiting MD re-eval and disposition.
--- NOTE | 2018-03-05 11:18 | DI.RAD_ITS ---
SYMPTOMS/DIAGNOSIS: TRAUMA, LT HIP PAIN PELVIS AND LEFT HIP: Comparison is made with 6Aug18. No fracture or dislocation is seen. There is mild acetabular spurring. Surgical clips are again noted in the pelvis. IMPRESSION: No acute abnormality.
--- NOTE | 2018-03-05 11:40 | NUR.NOTE ---
Pt. in [place], in NAD.
--- NOTE | 2018-03-05 14:55 | HPE_ITS ---
Date of service: 03/05/18 Time of Service: 14:51 Assessment and Plan (1) Lumbar compression fracture: Current visit: Yes Status: Acute Recent fall has caused a new compression fracture at L3 and worsening of a previous compression fracture at L1. On prior admission she has required extensive rehabilitation because of her underlying chronic pain and overall disability. Will monitor in observation status, physical therapy consult, pain control using acetaminophen, tramadol, Duragesic patch, Lidoderm patch. She overall looks reasonably comfortable we will see how she does mobilizing. She did fall while on Eliquis, no evidence of bleeding dyscrasia at this time. (2) Aortic stenosis, moderate: Current visit: Yes Status: Chronic She has a harsh systolic murmur diagnosed by echocardiogram 07/2017 as moderate aortic stenosis. No evidence of congestive heart failure or end-stage sequelae. (3) Falls frequently: Current visit: Yes Status: Acute Patient suffers frequent falls. She is unstable on her feet. This is a worrisome situation given that she has been anticoagulated. She seems at high risk for complications from anticoagulation. Plan is to hold the Eliquis at this time. Her pulmonary embolism is quite remote and one could argue that she no longer needs full dose anticoagulation. (4) Compression fracture of L1 lumbar vertebra: Current visit: Yes Status: Chronic Physical therapy and pain control (5) CAD (coronary artery disease): Current visit: Yes Status: Chronic (6) Pulmonary embolism: Current visit: Yes Status: Chronic No evidence of any respiratory compromise at this time. Hold Eliquis at this time. (7) Decubital ulcer: Current visit: Yes Status: Acute Small decubital ulcer. Family notes it has been draining. We will ask the wound care nurse to consult on this. She is quite sedentary and there is likely ongoing pressure issues per (8) Open wound of scapular region without complication: Current visit: Yes Status: Acute Abrasion of the left scapula 02/26/2018. This is superficial and does not appear infected. Local wound care measures as per wound care nurse. (9) Discharge planning issues: Current visit: Yes Status: Acute Admitted to observation status. She is a full code. History of Present Illness Chief Complaint: Fall with back pain Narrative: This is a 77-year-old woman who recently moved back into her own home on 03/03/2018. Prior to that she had been living with her daughter since December because of loss of ADLs, frequent falls, compression fracture. She had only been home for 2 days, required constant attention from her daughter including all of her meals. Apparently the today she was ambulating with her wheeled walker when the walker gave out. She fell, unwitnessed, striking her back and some part of the walker struck her in the head. There was no loss of consciousness. She did not describe any prodrome of dizziness or syncope. In the emergency room workup included a CT of the head and neck as well as plain films of her hip and CT of the hip and pelvis. A CT scan of the lumbar spine showed worsening compression of the L1 compression fracture from July 2017 and a new compression fracture in L3. She is admitted for pain control and physical therapy. Review of Systems Constitutional Denies excessive sweating, Reports frequent falls, Denies headache(s) and Denies weakness Eyes Denies other visual disturbances ENT Reports dizziness, Denies headache(s) and Denies throat swelling Cardiovascular Denies chest pain (Describes some focal chest tenderness near her previous thoracotomy site), Denies edema, Denies dyspnea, Denies dyspnea on exertion and Denies orthopnea Respiratory Denies dyspnea and Denies dyspnea on exertion Gastrointestinal Denies diarrhea, Denies nausea and Denies vomiting Genitourinary Denies urinary frequency and Denies urinary incontinence Musculoskeletal Denies back pain and Denies deformity Integumentary/Breasts Denies rash, Denies sores and Reports wounds (Left scapular area sustained a skin tear on 02/26/2018) Neurologic Denies confusion, Reports dizziness, Reports frequent falls, Denies headache(s), Denies focal weakness and Denies weakness Psychiatric Denies confusion, Denies depression and Denies suicidal ideation Endocrine Denies excessive sweating Hematologic/Lymphatic Denies easy bleeding and Denies easy bruising Allergic/Immunologic Denies urticaria and Denies throat swelling [facility] Medical History Open wound of scapular region without complication (Acute) Decubital ulcer (Acute) Pulmonary embolism (Chronic) Hx of CABG (Resolved ~2000) PVD (peripheral vascular disease) (Chronic) Anemia (Chronic) Cholelithiasis without cholecystitis (Chronic) LVH (left ventricular hypertrophy) (Chronic) CAD (coronary artery disease) (Chronic) Asthma (Chronic) Low back pain (Chronic) Peripheral vascular disease (Chronic) CKD (chronic kidney disease), stage III (Chronic) Morbid obesity (Chronic) Anxiety (Chronic) Hypothyroidism (Chronic) Type 2 diabetes mellitus (Chronic) Vitamin B 12 deficiency (Chronic) Polymyalgia rheumatica (Chronic) Venous stasis dermatitis of both lower extremities (Chronic) Compression fracture of L1 lumbar vertebra (Chronic ~07/2017) Falls frequently (Acute) Decreased performance of ADLs (Acute) Acute prerenal azotemia (Resolved) Aortic stenosis, moderate (Chronic ~07/2017) Social History Smoking/Tobacco Use Status: Never additional social history: Lives alone in her own home since 03/03/2018. Prior to that was living with her daughter from December 2017 until 03/03/2018. She was at a longterm in [place] prior to moving in with her daughter. She was discharged [facility] July 2017 to [facility] and was transferred to [place] from there. Lifelong non-smoker. Alcohol is not a problem for her. Meds Home Medications Medication Instructions Recorded Confirmed Type folic acid 1 mg PO DAILY 07/04/12 03/05/18 History cyanocobalamin (vitamin B-12) 1,000 mcg PO DAILY 07/05/12 03/05/18 History [Vitamin B-12] glipizide 10 mg PO BID 07/05/12 03/05/18 History nystatin 1 gm TOPICAL BID PRN PRN 07/05/12 03/05/18 History Brilinta 90 mg PO BID 03/11/13 03/05/18 History Bystolic 10 mg PO TID 03/11/13 03/05/18 History atorvastatin [Lipitor] 20 mg PO DAILY AM 03/11/13 03/05/18 History magnesium oxide 400 mg PO BID #60 tab 07/06/13 03/05/18 Rx amlodipine 5 mg PO DAILY 06/27/14 03/05/18 History nitroglycerin [Nitrostat] 1 tab SUBLINGUAL PRN PRN 06/27/14 03/05/18 History omeprazole 40 mg PO BID@0730,2000 04/01/16 03/05/18 History sertraline 200 mg PO DAILY 05/17/16 03/05/18 History levalbuterol tartrate [Xopenex HFA] 1 - 2 puff INHALATION Q4H PRN PRN 05/18/16 03/05/18 Rx inh Loratadine 10 mg PO DAILY 10/08/16 03/05/18 History cholecalciferol (vitamin D3) 2,000 units PO DAILY 10/08/16 03/05/18 History Eliquis 5 mg PO BID #60 tab 02/02/17 03/05/18 Rx coenzyme [id number] [Co Q-10 1 ea PO DAILY 05/24/17 03/05/18 History (with Vit E)] fentanyl 25 mcg TRANSDERMAL Q72H 10/09/17 03/05/18 History levothyroxine [Synthroid] 150 mcg PO DAILY AM 10/09/17 03/05/18 History spironolactone 25 mg PO DAILY AM 10/09/17 03/05/18 History dicyclomine [Bentyl] 20 mg Q6H PRN 03/05/18 03/05/18 History fluticasone-salmeterol [Advair 1 puff INHALATION Q12H 03/05/18 03/05/18 History Diskus] furosemide 40 mg PO DAILY 03/05/18 03/05/18 History gabapentin 100 mg PO TID 03/05/18 03/05/18 History lidocaine 1 patch TOPICAL DAILY PRN 03/05/18 03/05/18 History meclizine 12.5 mg PO TID PRN 03/05/18 03/05/18 History pramipexole [Mirapex] 1 mg PO BID 03/05/18 03/05/18 History sucralfate [Carafate] 1 g PO DIRECTED 03/05/18 03/05/18 History tramadol 50 mg PO TID 03/05/18 03/05/18 History Allergies Allergy/AdvReac Type Severity Reaction Status Date / Time aspirin Allergy Severe Anaphylaxsi Unverified 03/05/18 13:01 s morphine Allergy Intermediate Skin Rash Unverified 03/05/18 13:01 NSAIDS (Non-Steroidal Allergy Intermediate Skin Rash Unverified 03/05/18 13:01 Anti-Inflamma Sulfa (Sulfonamide Allergy Intermediate Skin Rash Unverified 03/05/18 13:01 Antibiotics) Quinidine-Quinine Analogues AdvReac Intermediate high fever Unverified 03/05/18 13:01 (Cincho tetanus and diphtheria AdvReac Intermediate Swelling/Ed Unverified 03/05/18 13:01 toxoids rachel [Tetanus&Diphtheria Toxoid] NADIYA Inhibitors AdvReac Mild cough Unverified 03/05/18 13:01 Exam Narrative Exam Narrative: Lying flat on the stretcher in no apparent distress. She was talkative and lucid. Remembered me from July 2017. Const General: cooperative and no acute distress (Describes 7 out of 10 pain lying comfortably on the gurney) Nutritional Appearance: obese Orientation: alert, awake and oriented x3 HENMT Head: normal to inspection and atraumatic Ears: hearing grossly normal bilaterally General nose exam: external nose normal Face and sinus: normal facial exam Eyes General: appearance normal, both eyes and all related structures Neck Neck: normal visual inspection Thyroid: thyroid normal Chest Chest: normal inspection of the chest and normal palpation of entire chest wall (Tender over 1 of the wire stay sutures beneath the thoracotomy site) Resp Effort & Inspection: normal respiratory effort Auscultation: clear to auscultation bilaterally Cardio Jugular venous pressure: no JVD Rate: regular rate Rhythm: regular rhythm Heart Sounds: murmur (2-3/6 harsh systolic murmur loudest in the right upper sternal border) GI Inspection: normal to inspection Palpation: soft, no masses and nontender Back/Spine/Pelvis Back: no CVA tenderness and back tenderness (Lumbar region, no deformity) Thoracic/Lumbar Spine: thoracic spinal tenderness (She has about a 7 cm abrasion over the left scapula, not infected) Skin Lesions: lesion noted (Decubital ulcer left inner crease about 1 cm no surrounding erythema) Neuro General: alert, awake, oriented x3, moves all extremities and normal light touch, pain and propioception Cranial Nerves: CN's II-XI intact bilaterally Cognition: normal cognition Speech: speech normal Sensory Exam: no sensory deficits noted (She described her right side is abnormal, no physical findings) Extrem General: normal to inspection, full ROM and no clubbing, cyanosis or edema Psych Appearance: grossly normal Results Imaging Abdomen CT scan report/results: image reviewed (Worsening compression of L1 compression fracture now about two thirds compressed, L3 compression fracture is new) CT scan - pelvis: image reviewed (Negative) Additional studies: CT of head and neck negative Last Vital Signs Temp 37.1 C 03/05/18 07:04 Pulse 56 L 03/05/18 14:16 Resp 25 H 03/05/18 14:20 BP 164/39 H 03/05/18 14:16 Pulse Ox 96 03/05/18 14:20
[2018-03-05] MEDS: glipiZIDE 10 MG TAB PO (17:05)
[2018-03-05] MEDS: Acetaminophen 325 MG TAB PO (18:14)
[2018-03-05] MEDS: Budesonide/Formoterol 80/4.5 6.9 GM 60 PUFF INH IH (20:10)
[2018-03-05] MEDS: Ticagrelor 90 MG TAB PO (20:13)
[2018-03-05] MEDS: Gabapentin 100 MG CAP 200 MG PO (20:13)
[2018-03-05] MEDS: Omeprazole 20 MG CAPCR 40 MG PO (20:13)
[2018-03-05] MEDS: Pramipexole 0.5 MG TAB 1 MG PO (20:14)
[2018-03-06 00:48] VITALS: BP 130/74; PULSE 53; RESP 20; TEMP 36.4; O2SAT 95
[2018-03-06] MEDS: Levothyroxine 150 MCG TAB PO (05:58)
[2018-03-06 06:52] VITALS: BP 150/68; PULSE 50; RESP 18; TEMP 36.5; O2SAT 96
[2018-03-06 08:23] LABS: Abs Immature Grans 0.03 k/cumm (0.0-0.09); Absolute Basophil Count 0.02 k/cumm (0.0-0.2); Absolute Eosinophil Count 0.34 k/cumm (0.0-0.7); Absolute Lymphocyte Count 1.07 k/cumm (1.2-3.4); Absolute Monocyte Count 0.42 k/cumm (0.11-0.7); Absolute Neutrophil Count 5.39 k/cumm (1.2-6.7); Basophils % 0.3; Eosinophils % 4.7; HCT 27.2 % (36.0-46.0); HGB 8.3 g/dL (12.0-15.5); Immature Grans % 0.4; Lymphocytes % 14.7; Mean Corp. HGB Concentration 30.5 g/dL (32.0-36.0); Mean Corpuscular Hemoglobin 25.2 pg (27.0-33.0); Mean Corpuscular Volume 82.4 fL (80-95); Monocytes % 5.8; Neutrophils % 74.1; Platelet Count 206 x1000/uL (130-400); RBC Distribution Width 17.3 % (11.7-14.6); White Blood Cell Count 7.27 k/cumm (4.4-10.8)
[2018-03-06] MEDS: Budesonide/Formoterol 80/4.5 6.9 GM 60 PUFF INH IH ×2 (08:24→21:56)
[2018-03-06 09:06] LABS: Hemoglobin A1C 6.2 % (4.5-6.2)
[2018-03-06 09:31] LABS: Anion Gap 8.6 mmol/L (3-11); BUN 14 mg/dL (7-18); CO2 29.4 mmol/L (21.0-32.0); CREATININE 1.12 mg/dL (0.55-1.02); Calcium 8.8 mg/dL (8.5-10.1); Chloride 103 mmol/L (98-107); Estimated GFR 47.17 (mL/min/1.73m2); Glucose 72 mg/dL (70-100); Potassium 3.2 mmol/L (3.5-5.1); Sodium 141 mmol/L (136-145)
[2018-03-06] MEDS: fentaNYL 25 MCG PATCH TD (09:31)
[2018-03-06] MEDS: Omeprazole 20 MG CAPCR 40 MG PO ×2 (09:34→20:04)
[2018-03-06] MEDS: Ticagrelor 90 MG TAB PO ×2 (09:34→20:05)
[2018-03-06] MEDS: Spironolactone 25 MG TAB PO (09:34)
[2018-03-06] MEDS: glipiZIDE 10 MG TAB PO ×2 (09:34→16:48)
[2018-03-06] MEDS: SERTRALINE 100 MG TAB 200 MG PO (09:35)
[2018-03-06] MEDS: Pramipexole 0.5 MG TAB 1 MG PO ×2 (09:35→20:04)
[2018-03-06] MEDS: Atorvastatin 20 MG TAB PO (09:35)
[2018-03-06] MEDS: amLODIPine 10 MG TAB 5 MG PO (09:35)
[2018-03-06] MEDS: Gabapentin 100 MG CAP 200 MG PO ×2 (09:36→20:05)
[2018-03-06] MEDS: Furosemide 20 MG TAB 40 MG PO (09:36)
[2018-03-06] MEDS: traMADol 50 MG TAB PO ×2 (09:52→20:05)
--- NOTE | 2018-03-06 10:19 | PT.INIE ---
Date of service: 03/06/18 Time of Service: 09:50 PT Notes Inpatient Physical Therapy Evaluation Date: 03/06/18 Referring Doctor: Dr. Mg PT Orders: PT CONSULT: fall at home, comp fx L1, L3, pain control; balance issues Precautions: fall, standard Patient Profile/Admitting Diagnosis: Patient admitted via the emergency room after a fall at home, resulting in compression fracture of L1 and L3. PMHX: Frequent falls, with history of previous compression fracture. Aortic stenosis; CAD; history of PE, on chronic anticoagulation, which was discontinued yesterday; decubital ulcer Social History/Home Situation: Patient had been living with her daughter temporarily, who is assisting with her care. She returned to her own home 03/03, with fall occurring 03/05. Her home is single level, no stairs to enter. Patient uses a Rollator walker at all times. Equipment Owned/DME: 4WW, which was damaged in her last fall. Patient reports that she has someone coming into her home next week to improve accessibility of bathrooms, install grab bars, etc. Subjective: Patient is resting comfortably in bed at initiation of session. She states that her pain is well managed, and she is anxious to return home. She admits to frequent falls, estimating 2/month. States that she had been living with her daughter after a rehab stay, and just returned home 2 days ago. She states that her daughter has returned to work and is no longer able to assist in her care. Objective: General Observation: Very pleasant, obese female. She has supplemental O2 via nasal cannula, and otherwise, no lines. Mental Status: A&Ox3 Pain: denies Vital Signs: seated BP 138/55, heart rate 58 ROM: Right Upper Extremity: Shoulder flexion allows 80 degrees, limited by pain. Wrist and elbow motion are within normal limits. Left Upper Extremity: Shoulder flexion allows 90 degrees, limited by pain. Elbow and wrist motion are within normal limits. Right Lower Extremity: grossly within functional limits Left Lower Extremity: Grossly within functional limits Strength: Right Upper Extremity: Shoulder flexion 3-/5, biceps 4-/5, triceps 3+/5 Left Upper Extremity: Shoulder flexion 3-/5, biceps 4-/5, triceps 3+/5 Right Lower Extremity: Flexion 4-/5, quads 4/5, ankle dorsiflexion 4+/5, hamstrings 4-/5 Left Lower Extremity: Flexion 4-/5, quads 4/5, ankle dorsiflexion 4+/5, hamstrings 4-/5 Bed Mobility/Transfers: Sit?stand: Min A, with cues for hand placement, and requirement of min A briefly upon standing due to balance deficits Stand?sit: Min a Supine?sit: Min a Bed?chair: Contact-guard, WW Gait: Patient is able to ambulate 3 feet with wheeled walker and CG. She requires cueing for WW management. Balance: Static Sitting: Good Dynamic Sitting: Fair Static Standing: Fair Dynamic Standing: Fair Special Tests: Mobility Limitations Standardized Measure [facility] AM-PAC 6 clicks Basic Mobility Inpatient Short Form: Raw Score: 15 standardized Score: 39.45 CMS Score: 58% CMS Modifier: CK Informed Consent/Education: Patient instructed in purpose of PT consult and plan of care. Assessment: Patient is a 77 year old female referred to physical therapy services with the diagnosis of fall at home, compression fracture L1, L3, pain control; balance issues. Patient presents with clinical signs and symptoms consistent with decreased functional mobility, related to escalating fall history and acute compression fractures. She currently demonstrates the following impairment level findings: 1. Decreased balance 2. History of multiple falls 3. Generalized weakness 4. Acute compression fractures Impairments are contributing to the following functional limitations: 1. Decreased independence with bed mobility 2. Decreased independence with transfers 3. Unable to independently ambulate household distances 4. High fall risk [facility] score 58% deficit. Patient is assessed as a High [id number] complexity based on the following: History: Acute compression fractures in elderly, obese female with history of multiple falls and previous fall resulting in compression fracture. Patient also has complicating factor of living alone, reporting that she is unable to return to her daughter's house. She has multiple contributing medical factors, including anticoagulation due to history of PE, and an extensive cardiac history. Examination: Functional limitations as noted above Presentation: Unstable, due to high fall risk and acute fractures Decision Making: high complexity Goals: Goals X1 week 1. Supine-Sit: supervision 2. Sit-Supine: supervision 3. Sit-Stand : supervision 4. Stand-Sit : supervision 5. Bed-Chair : supervision with WW 6. Chair-Bed : supervision with WW 7. Gait : supervision with WW x 50' Plan of Care/Treatment Plan: 1-2x/day, 7 days/week x 1 week. Plan of care has been reviewed with the METAL TUBE CUTTER providing the service under Physical Therapy direction. Initiate Physical Therapy intervention for strengthening, bed mobility, transfers, gait, stairs, balance training, use of assistive device. DISCHARGE RECOMMENDATIONS: Patient is not currently safe to return home independently. Will likely require rehab stay vs [facility] placement TREATMENT CODE/TIME: 30 minutes G Codes in the area mobility of walking and moving around: current status [id number] CK; projected status GP [id number]. Discharge status (if discharging) GP [id number] CK.
[2018-03-06 10:47] LABS: Bilirubin Negative (Negative); Blood Trace-intact (Negative); Clarity Clear; Glucose Negative (Negative); Ketones Negative (Negative); Leukocyte Esterase Negative (Negative); Nitrite Negative (Negative); Specific Gravity 1.025 (1.005-1.025); Urobilinogen 0.2 EU/dL (Up TO 0.2)
[2018-03-06 10:57] LABS: Bacteria Many HPF (Negative); Crystals Negative HPF (Negative); Epithelial Cells Moderate HPF (Negative); Mucus Negative (Negative); Other Cells Negative (Negative); WBC 0-2 HPF (0-5)
[2018-03-06 10:58] LABS: C & S Indicated? No/Sq. Contamination; Casts Negative LPF (Negative)
--- NOTE | 2018-03-06 14:08 | CHAPLAIN ---
Lucy was sitting up in her chair when I visited. [place] tells me [place] and that something hit in the head when she was home recently, causing her to fall, and be transported here. She has a granddaughter in [place] who may visit. Lucy said she is very close to her daughter and granddaugthers. She also has a son. Lucy said she deals with a lot of pain because she has a shoulder injury, and is unable to have surgery on it because they are afraid I won't come out of the anesthesia.
--- NOTE | 2018-03-06 14:54 | PDOC.CMIN ---
- If Service Date Differs Date of service: 03/06/18 Time of Service: 14:54 Care Management Initial Assess REASON FOR HOSPITALIZATION:: Lumbar compression fracture PAST MEDICAL HISTORY/PAST SURGICAL HISTORY:: Open wound of scapular region without complication (Acute). Decubital ulcer (Acute). Pulmonary embolism (Chronic). Hx of CABG (Resolved ~2000). PVD (peripheral vascular disease) (Chronic). Anemia (Chronic). Cholelithiasis without cholecystitis (Chronic). LVH (left ventricular hypertrophy) (Chronic). CAD (coronary artery disease) (Chronic). Asthma (Chronic). Low back pain (Chronic). Peripheral vascular disease (Chronic). CKD (chronic kidney disease), stage III (Chronic). Morbid obesity (Chronic). Anxiety (Chronic). Hypothyroidism (Chronic). Type 2 diabetes mellitus (Chronic). Vitamin B 12 deficiency (Chronic). Polymyalgia rheumatica (Chronic). Venous stasis dermatitis of both lower extremities (Chronic). Compression fracture of L1 lumbar vertebra (Chronic ~07/2017). Falls frequently (Acute). Decreased performance of ADLs (Acute). Acute prerenal azotemia (Resolved). Aortic stenosis, moderate (Chronic ~07/2017) PREVIOUS FUNCTIONAL STATUS/SOCIAL/FAMILY SUPPORTS:: Lucy resides alone in [facility]. She states that she has a son and daguther whom both reside locally and are supoprtive. Lucy was previously at a SNF in [place], and states that she then went to reside with her daughter until her daughter had to return to work. Lucy states that she has only been home for a few days. She does state that her granddaughter helps to care for her at home. CURRENT FUNCTIONAL STATUS:: Currently Lucy is sitting up in her chair doing a puzzle when this policy writer sales visits. she is pleasant and receptive to discussion. ADVANCE DIRECTIVES:: None on file Has patient been provided with information about the portal?: Yes Did the patient sign up for the portal?: No CODE STATUS:: Full Code INSURANCE COVERAGE / FINANCIAL ISSUES:: Medicare, Medicaid CURRENT HOME/COMMUNITY SERVICES/EQUIPMENT:: Currently Lucy has [facility] services at home - she states that her granddaughter is paid to care for her, however is unsure as to who her CM is in the community. Lucy states that she has a 4WW which broke leading to her being admitted, a FWW, a Cane, oxygen through [place], a shower chair, and raised toilet. PRIMARY CARE PHYSICIAN:: Dr. Graham POTENTIAL DISCHARGE NEEDS:: ? SNF placement. Lucy states that she is going to speak with another older woman to see if she will move in with her so that they can take care of each other. PATIENT/FAMILY EDUCATION NEEDS:: review DC instructions, any limitations, and ongoing DC planning discussion. Discuss 'Ask Me Three' ANTICIPATED BARRIERS TO DISCHARGE:: None identified at this time. TRANSPORTATION:: Via private vehicle with family PLAN:: ? Snf placement - Lucy states that she wants to return home to , however is telling PT that she may require placement at time of DC. to continue to meet with Lucy to discuss DC options. Lucy's family to transport when ready.
--- NOTE | 2018-03-06 15:06 | INITIAL_ITS ---
- If Service Date Differs Date of service: 03/06/18 Time of Service: 14:54 Care Management Initial Assess REASON FOR HOSPITALIZATION:: Lumbar compression fracture PAST MEDICAL HISTORY/PAST SURGICAL HISTORY:: Open wound of scapular region without complication (Acute). Decubital ulcer (Acute). Pulmonary embolism (Chronic). Hx of CABG (Resolved ~2000). PVD (peripheral vascular disease) (Chronic). Anemia (Chronic). Cholelithiasis without cholecystitis (Chronic). LVH (left ventricular hypertrophy) (Chronic). CAD (coronary artery disease) (Chronic). Asthma (Chronic). Low back pain (Chronic). Peripheral vascular disease (Chronic). CKD (chronic kidney disease), stage III (Chronic). Morbid obesity (Chronic). Anxiety (Chronic). Hypothyroidism (Chronic). Type 2 diabetes mellitus (Chronic). Vitamin B 12 deficiency (Chronic). Polymyalgia rheumatica (Chronic). Venous stasis dermatitis of both lower extremities (Chronic). Compression fracture of L1 lumbar vertebra (Chronic ~07/2017). Falls frequently (Acute). Decreased performance of ADLs (Acute). Acute prerenal azotemia (Resolved). Aortic stenosis, moderate (Chronic ~07/2017) PREVIOUS FUNCTIONAL STATUS/SOCIAL/FAMILY SUPPORTS:: uLcy resides alone in [facility]. She states that she has a son and daguther whom both reside locally and are supoprtive. Lucy was previously at a SNF in [place], and states that she then went to reside with her daughter until her daughter had to return to work. Lucy states that she has only been home for a few days. She does state that her granddaughter helps to care for her at home. CURRENT FUNCTIONAL STATUS:: Currently Lucy is sitting up in her chair doing a puzzle when this creative writer visits. she is pleasant and receptive to discussion. ADVANCE DIRECTIVES:: None on file Has patient been provided with information about the portal?: Yes Did the patient sign up for the portal?: No CODE STATUS:: Full Code INSURANCE COVERAGE / FINANCIAL ISSUES:: Medicare, Medicaid CURRENT HOME/COMMUNITY SERVICES/EQUIPMENT:: Currently Lucy has [facility] services at home - she states that her granddaughter is paid to care for her, however is unsure as to who her CM is in the community. Lucy states that she has a 4WW which broke leading to her being admitted, a FWW, a Cane, oxygen through [place], a shower chair, and raised toilet. PRIMARY CARE PHYSICIAN:: Dr. Graham POTENTIAL DISCHARGE NEEDS:: ? SNF placement. Lucy states that she is going to speak with another older woman to see if she will move in with her so that they can take care of each other. PATIENT/FAMILY EDUCATION NEEDS:: review DC instructions, any limitations, and ongoing DC planning discussion. Discuss 'Ask Me Three' ANTICIPATED BARRIERS TO DISCHARGE:: None identified at this time. TRANSPORTATION:: Via private vehicle with family PLAN:: ? Snf placement - Lucy states that she wants to return home to , however is telling PT that she may require placement at time of DC. to continue to meet with Lucy to discuss DC options. Lucy's family to transport when ready.
[2018-03-06 15:59] VITALS: BP 125/68; PULSE 60; RESP 18; TEMP 37; O2SAT 100
--- NOTE | 2018-03-06 17:02 | WOUNDCARE ---
Wound Care Report 03/06/17 1700 Pt has what appears to be a shearing injury noted under the right scapula. Pt states it was a blister and her daughter was putting vasoline on it at home. The injury measures 5 cm 3.4 cm with an area of less than 0.1 cm thickness. The center of the wound is purplish measuring 2.2 x 1.4 cm. Surrounding the purplish area is a yellowish area measuring 2.5 cm x 2.4 cm, then surrounding that is an area of dark pink with the total wound measuring 5 cm x 3.4 cm x less than 0.1 cm of non- granulating tissue. Scant yellowish drainage noted on old dressing. No odor to wound drainage noted. Periphery of wound is normal tissue. This nurse would recommend cleansing the wound with anasept cleanser, letting the anasept dwell on wound for 2 minutes. Then apply a mepilex dressing with boarder, changing the dressing every 3 days and PRN. I would also recommend getting a nutrition consult due to the fact that she is a diabetic and this wound per patient report has been there for approximately 3 weeks. The second wound is on the patient's left upper gluteal fold and has a raised area which appears to be a scab which measures 0.6 x 0.7 and is raised from the level of the skin 0.2 cm. The periphery of the wound is purplish and blanchable. Patient states this area has been there for months and she picks at it. She was educated that this is not good for wound healing. This nurse would recommend good arabella care and applying zinc barrier cream PRN, also patient would benefit from offloading the area as much as possible but to change positions at least every hour and PRN for discomfort.
[2018-03-06] MEDS: Acetaminophen 325 MG TAB PO (17:09)
[2018-03-06 19:01] VITALS: BP 105/43; PULSE 59; RESP 18; TEMP 37; O2SAT 97
[2018-03-06] MEDS: Lidocaine 5% Patch 1 PATCH TP (20:04)
--- NOTE | 2018-03-06 20:47 | W.PM.PROGNOT ---
Date of Service Date of service: 03/06/18 Time of Service: 20:47 Assessment and Plan (1) Lumbar compression fracture: Current visit: No Status: Acute Recent fall with resultant new compression fracture at L3 and worsening of a previous compression fracture at L1. Continue pain control with acetaminophen, tramadol, Duragesic patch, Lidoderm patch. Continue PT/OT. Will likely require short term rehab at [facility] prior to discharge home. (2) Falls frequently: Current visit: No Status: Acute As above. Continue PT/OT. She has chronically been on anticoagulation with Apixiban for a PE, this is concerning with now frequent falls. It appears that she has been anticoagulated at least one year. Her Apixiban is currently on hold. She is also anemic. Continue to hold Apixiban. (3) Decubital ulcer: Current visit: No Status: Acute Continue dressings per wound care consult. (4) Open wound of scapular region without complication: Current visit: No Status: Acute With dressing intact. Continue dressing per wound consult. (5) Pulmonary embolism: Current visit: No Status: Chronic Hx of PE. Has been on anticoagulation for over a year. No current respiratory compromise. In the setting of falls, her anticoagulation is currently on hold. Continue to hold Apixiban for now. (6) Anemia: Current visit: No Status: Chronic Appears chronic. Plan to hematest stools and obtain iron studies. Reassess CBC in the morning. (7) Hypokalemia: Current visit: No Status: Acute Her Potassium was low, she has received supplementation. Reassess BMP in the morning. Subjective Interval history since last seen: 77-year-old woman with a prior history of compression fractures, admitted on 03/05 with evidence of acute and chronic compression fractures. Mrs. Vinson had been admitted in 07/2017 with fall and compression fracture, eventually discharged to a local SNF. She then went home with her daughter, where she lived until very recently when she went back to her own home. Unfortunately 2 days later she suffered another fall, mechanical in nature, with immediate onset of pain. Work-up in the ED showed worsening compression of the L1 fracture from July, and a new fracture in L3. She was admitted for pain control and physical therapy. The patient reports continued pain, albeit improved, and is working with PT. Ultimate goal of placement to SNF. Exam Narrative Exam Narrative: General: Appears comfortable, Sitting up in chair, NAD Neck: Supple CV: Regular, nontachycardic, S1S2, 3/6 LLSB murmur. Pulmonary: Clear to auscultation bilaterally, no crackles, wheezing, or rhonchi Abdomen: + Bowel Sounds, soft, nontender, nondistended Vascular: Minimal b/l lower extremity edema Psych: Normal mood and affect. Objective Objective Clinical Data: Abnormal lab results 03/06/18 03/06/18 03/06/18 Range/Units 07:03 07:03 10:12 RBC 3.30 L (4.00-5.20) m/cumm Hgb 8.3 L (12.0-15.5) g/dL Hct 27.2 L (36.0-46.0) % MCH 25.2 L (27.0-33.0) pg MCHC 30.5 L (32.0-36.0) g/dL RDW 17.3 H (11.7-14.6) % Absolute Lymphocytes 1.07 L (1.2-3.4) k/cumm Potassium 3.2 L (3.5-5.1) mmol/L Creatinine 1.12 H (0.55-1.02) mg/dL Urine Protein 30 H (Negative) mg/dL Urine Blood Trace-intact H (Negative) Urine RBC 3-5 H (0-2) Vital Signs Temperature 37.0 C 03/06/18 19:01 Temperature Source Tympanic 03/06/18 19:01 Pulse 59 L 03/06/18 19:01 Pulse Rhythm Irregular 03/06/18 16:03 Pulse 59 L 03/05/18 14:20 Respiratory Rate 18 03/06/18 19:01 Respiratory Effort Non-Labored 03/06/18 16:03 Respiratory Depth Normal 03/06/18 16:03 Respiratory Pattern Normal 03/06/18 16:03 Blood Pressure 105/43 L 03/06/18 19:01 Blood Pressure Mean 72 03/05/18 14:16 Blood Pressure Position Sitting 03/05/18 07:04 Pulse Oximetry 97 03/06/18 19:01 Respiratory End-tidal CO2 30 03/05/18 07:30 Oxygen Delivery Method Nasal Cannula 03/06/18 19:01 Oxygen Flow Rate 2 03/06/18 19:01 Pain Level 7 03/06/18 20:05 Comment 03/05/18 07:04 Intake & Output 03/05/18 03/06/18 03/06/18 23:59 11:59 23:59 Intake Total 240 / 240 1070 / 1070 Output Total 250 / 250 310 / 660 350 / 660 Balance -10 / -10 -310 / 410 720 / 410 Weight 81.647 kg Intake: Oral 240 / 240 1070 / 1070 Output: Urine 250 / 250 310 / 660 350 / 660 Other: Urine Color Dark Shaunna Straw Yellow Light Shaunna Urine Appearance Clear Clear Urine Odor Foul Normal Stool Size Small Stool Characteristics Soft Formed Green Voiding Methods Bedside Commode Bedside Commode Laboratory Results WBC 7.27 k/cumm (4.4-10.8) 03/06/18 07:03 RBC 3.30 m/cumm (4.00-5.20) L 03/06/18 07:03 Hgb 8.3 g/dL (12.0-15.5) L 03/06/18 07:03 Hct 27.2 % (36.0-46.0) L 03/06/18 07:03 MCV 82.4 fL (80-95) 03/06/18 07:03 MCH 25.2 pg (27.0-33.0) L 03/06/18 07:03 MCHC 30.5 g/dL (32.0-36.0) L 03/06/18 07:03 RDW 17.3 % (11.7-14.6) H 03/06/18 07:03 Plt Count 206 x1000/uL (130-400) 03/06/18 07:03 MPV 10.0 fL (8.0-11.0) 03/06/18 07:03 Immature Gran % 0.4 03/06/18 07:03 Neutrophils % 74.1 03/06/18 07:03 Lymphocytes % 14.7 03/06/18 07:03 Monocytes % 5.8 03/06/18 07:03 Eosinophils % 4.7 03/06/18 07:03 Basophils % 0.3 03/06/18 07:03 Absolute Neutrophils 5.39 k/cumm (1.2-6.7) 03/06/18 07:03 Absolute Lymphocytes 1.07 k/cumm (1.2-3.4) L 03/06/18 07:03 Absolute Monocytes 0.42 k/cumm (0.11-0.7) 03/06/18 07:03 Absolute Eosinophils 0.34 k/cumm (0.0-0.7) 03/06/18 07:03 Absolute Basophils 0.02 k/cumm (0.0-0.2) 03/06/18 07:03 Sodium 141 mmol/L (136-145) 03/06/18 07:03 Potassium 3.2 mmol/L (3.5-5.1) L 03/06/18 07:03 Chloride 103 mmol/L (98-107) 03/06/18 07:03 Carbon Dioxide 29.4 mmol/L (21.0-32.0) 03/06/18 07:03 Anion Gap 8.6 mmol/L (3-11) 03/06/18 07:03 BUN 14 mg/dL (7-18) 03/06/18 07:03 Creatinine 1.12 mg/dL (0.55-1.02) H 03/06/18 07:03 Estimated GFR/1.73 m2 47.17 (mL/min/1.73m2) 03/06/18 07:03 Glucose 72 mg/dL (70-100) 03/06/18 07:03 Hemoglobin A1c 6.2 % (4.5-6.2) 03/06/18 07:03 Calcium 8.8 mg/dL (8.5-10.1) 03/06/18 07:03 Urine Color Yellow (Yellow) 03/06/18 10:12 Urine Clarity Clear 03/06/18 10:12 Urine pH 6.0 (5-8) 03/06/18 10:12 Ur Specific [place] 1.025 (1.005-1.025) 03/06/18 10:12 Urine Protein 30 mg/dL (Negative) H 03/06/18 10:12 Urine Ketones Negative mg/dL (Negative) 03/06/18 10:12 Urine Blood Trace-intact (Negative) H 03/06/18 10:12 Urine Nitrite Negative (Negative) 03/06/18 10:12 Urine Bilirubin Negative (Negative) 03/06/18 10:12 Urine Urobilinogen 0.2 EU/dL (Up TO 0.2) 03/06/18 10:12 Ur Leukocyte Esterase Negative (Negative) 03/06/18 10:12 Urine RBC 3-5 (0-2) H 03/06/18 10:12 Urine WBC 0-2 HPF (0-5) 03/06/18 10:12 Ur Epithelial Cells Moderate HPF (Negative) 03/06/18 10:12 Urine Crystals Negative HPF (Negative) 03/06/18 10:12 Urine Bacteria Many HPF (Negative) 03/06/18 10:12 Urine Casts Negative LPF (Negative) 03/06/18 10:12 Urine Mucus Negative (Negative) 03/06/18 10:12 Urine Other Negative (Negative) 03/06/18 10:12 Ur Culture Indicated? No/sq. contamination 03/06/18 10:12 Urine Glucose Negative mg/dL (Negative) 03/06/18 10:12
[2018-03-06 23:31] VITALS: BP 116/56; PULSE 56; RESP 20; TEMP 36.3; O2SAT 93
[2018-03-07] MEDS: traMADol 50 MG TAB PO (05:24)
[2018-03-07] MEDS: Levothyroxine 150 MCG TAB PO (05:24)
[2018-03-07] MEDS: LIDOCAINE Patch Removal 1 EACH TP (05:25)
[2018-03-07 07:30] VITALS: BP 189/84; PULSE 61; RESP 18; TEMP 37.1; O2SAT 97
[2018-03-07] MEDS: Spironolactone 25 MG TAB PO (07:54)
[2018-03-07] MEDS: Omeprazole 20 MG CAPCR 40 MG PO ×2 (07:55→19:27)
[2018-03-07] MEDS: Gabapentin 100 MG CAP 200 MG PO ×2 (07:55→19:27)
[2018-03-07] MEDS: glipiZIDE 10 MG TAB PO ×2 (07:55→17:08)
[2018-03-07] MEDS: amLODIPine 10 MG TAB 5 MG PO (07:55)
[2018-03-07] MEDS: Atorvastatin 20 MG TAB PO (07:55)
[2018-03-07] MEDS: Furosemide 20 MG TAB 40 MG PO (07:55)
[2018-03-07] MEDS: Ticagrelor 90 MG TAB PO ×2 (07:55→19:26)
[2018-03-07] MEDS: SERTRALINE 100 MG TAB 200 MG PO (07:55)
[2018-03-07] MEDS: Pramipexole 0.5 MG TAB 1 MG PO ×2 (07:55→19:26)
[2018-03-07] MEDS: Budesonide/Formoterol 80/4.5 6.9 GM 60 PUFF INH IH ×2 (08:03→19:33)
[2018-03-07 08:05] VITALS: O2SAT 96
--- NOTE | 2018-03-07 10:38 | PT.INTREAT ---
Date of service: 03/07/18 Time of Service: 10:38 PT Notes Inpatient Physical Therapy Treatment Note Date: 03/06/18 PRECAUTIONS: Fall SUBJECTIVE: Lucy states that she is very tired today. OBJECTIVE: PAIN: No c/o pain BED MOBILITY/TRANSFERS Sit-supine: SBA with HOB flat Sit-stand: CGA Stand-sit: CGA GAIT Assistive Device: FWW Weight bearing: Full Assist: CGA Distance: 20' x2 THEREX: Patient completed a LE strengthening program, as per flow sheet. ASSESSMENT: Patient tolerated session with c/o increased fatigue with gait training. She also c/o dizziness with [id number] transfer, requiring rest for recovery. She required lots of encouragement to participate in PT. PLAN: Continue with PT's POC TREATMENT CODE/TIME: 25 minutes; TA/TP
--- NOTE | 2018-03-07 12:17 | PHARADMIT ---
Admission Pharmacy Clinical Review acute compressin fracture.Fall. Code Status Full Code Current Weight Wgt-81.6 kg Renally Cleared and Narrow Therapeutic Index Meds CrCL~ 33.2 mL/min Meds-OK QTc Value / Action Taken QTc-455 (October) BP Control, Fever BP- 189/84 Tmax- 37.1C Electrolytes reviewed Na- 141 K+3.2 DVT Prophylaxis Brilinta Opiate Usage / Scheduled Bowel Regimen Ordered Yes Yes Plt/SCr for Heparin / Enoxaparin Plts-206 SCr-1.12 INR for Warfarin na H/H stable, WBC/Bands H&H- 8.3/27.2 WBC- 7.27 Antibiotic appropriateness none Cultures and Sensitivities none Surgical ABX d/c within 24 hr na DM control / Insulin Dosing BG- 72 HgA1c- 6.2, Glipizide, Aspart Heart Failure (Check EF%) (NADIYA's, B-Block, Diuretics) Norvasc, Lasix, Bystolic, NTG, Spironolactone. IV to PO Switch No Home Meds Reviewed Yes Home Meds Not Ordered Apixaban, Vit-D, Comments
--- NOTE | 2018-03-07 13:19 | PDOC.CMPRO ---
- If Service Date Differs Date of service: 03/07/18 Time of Service: 13:19 Care Management Progress Note S/O: CM met with Lucy this morning whom was lying in bed. She states that she is tired and feeling 'worn out this morning. CM discussed DC planning with Lucy, and the recommendation from PT that SNF would be beneficial for Lucy at time of DC. Lucy states that she would like this freelance writer to speak with her daughter Maribel in regards to SNF options and her thoughts. CM contacted Maribel at work whom states that Lucy was previously at [facility] and [facility] and did very well. Maribel states that if PT feels as though Lucy would benefit from a SNF stay a referral should be sent. CM met with Lucy in regards to the discussion with her daughter and Lucy states that she is receptive to a referral being placed to [facility], and states that she would like to have the same room/roommate. CM contacted [facility] and spoke with Otilia whom states that she will be able to review the referral and will notify CM on Monday as to whether they can accept or not. CM faxed referral to [facility] and [facility]. A: 77 y/o female admitted 03/05/18 for acute compression fracture, fall. P: Referral has been faxed to [facility] for review for admission for SNF placement. Otilia, [facility], to contact CM on Monday in regards to whether they will be able to accept Lucy for SNF placement. Lucy to transport via private vehicle when ready.
[2018-03-07 13:28] VITALS: BP 122/66; PULSE 57; RESP 18; TEMP 37.7; O2SAT 97
--- NOTE | 2018-03-07 13:41 | OT.INIE ---
Occupational Therapy Notes Inpatient Occupational Therapy Evaluation Date: 03/07/18 Referring Doctor:Eliana Newman NP OT Orders: hx falls, acute compression fx Precautions: Fall precautions, standard precautions PATIENT PROFILE/ADMITTING DIAGNOSIS: Pt is a 77 year old female who was admitted through the ER after a reported fall in her home which led to a compression fx at L3. Past Medical History: Frequent falls, with history of previous compression fracture. Aortic stenosis; CAD; history of PE, on chronic anticoagulation, which was discontinued on 03/05/18 and decubital ulcer. Current Functional Limitations: Pt has decreased functional activity tolerance during ADLs/IADLs, decreased (B) UE AROM, (R) shoulder rotator cuff issue which pt reports she is currently [place] [facility] [place] decreased (B) UE strength, decreased functional ROM, decreased (I) in toileting and bathing routines. Social History/Home Situation: Patient was living with her daughter temporarily, and she was receiving assistance with her ADLs from her daughter and granddaughter. She returned to her own home 03/03 to live (I) on her own. She reports that she fell on 03/05/18 indicating that she was the only one in the home except her cats and all of the sudden she was hit in the head by her walker and she woke up on the floor. She states that her cats might have hit her over the head with the walker she is unsure. Her home is single level, no stairs to enter. Patient uses a walker for functional ambulation and reports that her baseline (I) in ADLs are as follows: (I) with putting her shirt on, uses a sock aid for donning socks, sometimes needs help with eating bring food to her mouth, sometimes needs help with brushing her hair, performing teeth hygiene (I), she does not drive, she has a tub/shower and has a shower bench but feels that this is unsafe at times and also washes up with soap and water at times. She reports that she cooks her own meals and her granddaughter helps keep her house clean. Equipment owned/DME: FWW which was damaged in the fall that she had on 03/05/18, shower bench that she doesn't like. Pt also reports that she is part of a program which is supposed to come in and work on her bathroom to make it more accessible to her. SUBJECTIVE: Pt was lying in bed when OT arrived. She is agreeable to OT session and consult today. OBJECTIVE: General Observation: O2 nasal canal Mental Status: Alert to name and place however pt seems confused as to what happened prior to admission. Pain: Pt c/o 7/10 pain consistently in (R) side of body at beginning of consult however at end of consult she states she doesn't have a ton of pain. ROM: RUE AROM shoulder limited to 90* and pain in rotator cuff, elbow and wrist WNL L UE AROM shoulder limited to 90*, elbow and wrist WNL. STRENGTH: RUE Shoulder flexion 3/5, elbow 4-/5, bridge rigger 3/5 LUE Shoulder flexion 3/5, elbow 4-/5, bridge rigger 3/5 Therapeutic Activitiesx1: Pt perform dynamic functional activities and was able to reach behind her head, touch opposite (B) shoulders, reach towards her knees, and brush her hair (I). Pt also demonstrated increased (I) in functional grasp and release with large to small objects. BALANCE: Static sitting Normal Dynamic Sitting Good SPECIAL TESTS: Daily Activity Limitations Standardized Measure [facility] AM -PAC ?6 clicks? Daily Activity Inpatient Short Form: Raw score: 21 Standardized score: 44.27 CMS score: 32.79% CMS modifier: CJ INFORMED CONSENT/EDUCATION: Pt instructed in purpose of OT Consult and plan of care. ASSESSMENT: Patient is a 77-year-old female referred to occupational therapy services with diagnosis of admitted through the ER after a reported fall in her home which led to a compression fx at L3 in setting of Frequent falls, with history of previous compression fracture. Aortic stenosis; CAD; history of PE, on chronic anticoagulation, which was discontinued on 03/05/18 and decubital ulcer. Patient presents with clinical signs and symptoms consistent with this dx, as demonstrated by the following impairment level findings: decreased (B) UE AROM, (R) shoulder rotator cuff issue which pt reports she is currently being [place] by Dr. Nuñez [place] [facility] [place], decreased (B) UE strength, decreased functional ROM Impairments are contributing to the following functional limitations: Decreased functional activity tolerance, decreased (I) in bathing and toileting routines. At this time OT does not feel that pt would be safe to return home and would benefit from continued care or LTC facility at this time. AMPAC score 21, CMS score 32.79% Patient is assessed as a high 33382 complexity based on the following: History: See Above Examination: See Above Presentation: Evolving Decision Making: AMPAC score 21, CMS score 32.79% GOALS Goals x1 week in hospital setting 1. Dressing- Pt will be able to demonstrate (I) in use of sock aid for donning socks and pt will be able to put on upper body garments with min (A). 2. Bathing- Sitting in chair pt will be able to (I) wash with soap and water and min (A) for (B) feet. 3. Toileting- Pt will be able to perform toileting routine on the toilet (I). 4. Eating- Pt will be able to cut her food and bring food to mouth translation (I). PLAN OF CARE/TREATMENT PLAN: 1x/day, 5 days/ week x 1week Initiate Occupational Therapy Services for bathing, dressing, grooming, toileting, eating, transfer training. DISCHARGE RECOMMENDATIONS Pt is not safe to return home at this time. OT recommends LTC for continued care when medically d/c per MD. TREATMENT TIME/MINUTES/CODES: IE 33 minutes, TAx1 (10:55) G Codes in the area of self- : washing oneself, toileting, dressing, eating and drinking, current status GO [id number] CJ projected status GO [id number]. Discharge status (if discharging) GO [id number]. Pebbles Rangel, OTR/L
--- NOTE | 2018-03-07 13:48 | CMPROGNOTE_ITS ---
- If Service Date Differs Date of service: 03/07/18 Time of Service: 13:19 Care Management Progress Note S/O: CM met with Lucy this morning whom was lying in bed. She states that she is tired and feeling 'worn out this morning. CM discussed DC planning with Lucy, and the recommendation from PT that SNF would be beneficial for Lucy at time of DC. Lucy states that she would like this director underwriter sales to speak with her daughter Maribel in regards to SNF options and her thoughts. CM contacted Maribel at work whom states that Lucy was previously at [facility] and did very well. Maribel states that if PT feels as though Lucy would benefit from a SNF stay a referral should be sent. CM met with Lucy in regards to the discussion with her daughter and Lucy states that she is receptive to a referral being placed to [facility], and states that she would like to have the same room/roommate. ED c ontacted [facility] and spoke with Otilia whom states that she will be able to review the referral and will notify CM on Monday as to whether they can accept or not. CM faxed referral to [facility] and [facility]. A: 77 y/o female admitted 03/05/18 for acute compression fracture, fall. P: Referral has been faxed to [facility] for review for admission for SNF placement. Otilia, [facility], to contact CM on Monday in regards to whether they will be able to accept Lucy for SNF placement. Lcuy to transport via private vehicle when ready.
--- NOTE | 2018-03-07 13:59 | OTIE_ITS ---
Occupational Therapy Notes Inpatient Occupational Therapy Evaluation Date: 03/07/18 Referring Doctor:Eliana Newman NP OT Orders: hx falls, acute compression fx Precautions: Fall precautions, standard precautions PATIENT PROFILE/ADMITTING DIAGNOSIS: Pt is a 77 year old female who was admitted through the ER after a reported fall in her home which led to a compression fx at L3. Past Medical History: Frequent falls, with history of previous compression fracture. Aortic stenosis; CAD; history of PE, on chronic anticoagulation, which was discontinued on 03/05/18 and decubital ulcer. Current Functional Limitations: Pt has decreased functional activity tolerance during ADLs/IADLs, decreased (B) UE AROM, (R) shoulder rotator cuff issue which pt reports she is currently being seen by Dr. Nuñez for from [facility], decreased (B) UE strength, decreased functional ROM, decreased (I) in toileting and bathing routines. Social History/Home Situation: Patient was living with her daughter temporarily, and she was receiving assistance with her ADLs from her daughter and granddaughter. She returned to her own home 03/03 to live (I) on her own. She reports that she fell on 03/05/18 indicating that she was the only one in the home except her cats and all of the sudden she was hit in the head by her walker and she woke up on the floor. She states that her cats might have hit her over the head with the walker she is unsure. Her home is single level, no stairs to enter. Patient uses a walker for functional ambulation and reports that her ba seline (I) in ADLs are as follows: (I) with putting her shirt on, uses a sock aid for donning socks, sometimes needs help with eating bring food to her mouth, sometimes needs help with brushing her hair, performing teeth hygiene (I), she does not drive, she has a tub/shower and has a shower bench but feels that this is unsafe at times and also washes up with soap and water at times. She reports that she cooks her own meals and her granddaughter helps keep her house clean. Equipment owned/DME: FWW which was damaged in the fall that she had on 03/05/18, shower bench that she doesn't like. Pt also reports that she is part of a program which is supposed to come in and work on her bathroom to make it more accessible to her. SUBJECTIVE: Pt was lying in bed when OT arrived. She is agreeable to OT session and consult today. OBJECTIVE: General Observation: O2 nasal canal Mental Status: Alert to name and place however pt seems confused as to what happened prior to admission. Pain: Pt c/o 7/10 pain consistently in (R) side of body at beginning of consult however at end of consult she states she doesn't have a ton of pain. ROM: RUE AROM shoulder limited to 90* and pain in rotator cuff, elbow and wrist WNL L UE AROM shoulder limited to 90*, elbow and wrist WNL. 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 Pt also demonstrated increased (I) in functional grasp and release with large to small objects. BALANCE: Static sitting Normal Dynamic Sitting Good SPECIAL TESTS: Daily Activity Limitations Standardized Measure [facility] AM -PAC ?6 clicks? Daily Activity Inpatient Short Form: Raw score: 21 Standardized score: 44.27 CMS score: 32.79% CMS modifier: CJ INFORMED CONSENT/EDUCATION: Pt instructed in purpose of OT Consult and plan of care. ASSESSMENT: Patient is a 77-year-old female referred to occupational therapy services with diagnosis of admitted through the ER after a reported fall in her home which led to a compression fx at L3 in setting of Frequent falls, with history of previous compression fracture. Aortic stenosis; CAD; history of PE, on chronic anticoagulation, which was discontinued on 03/05/18 and decubital ulcer. Patient presents with clinical signs and symptoms consistent with this dx, as demonstrated by the following impairment level findings: decreased (B) UE AROM, (R) shoulder rotator cuff issue which pt reports she is currently being seen by Dr. Nuñez for from [facility], decreased (B) UE strength, decreased functional ROM Impairments are contributing to the following functional limitations: Decreased functional activity tolerance, decreased (I) in bathing and toileting routines. At this time OT does not feel that pt would be safe to return home and would benefit from continued care or LTC facility at this time. AMPAC score 21, CMS score 32.79% Patient is assessed as a high [id number] complexity based on the following: History: See Above Examination: See Above Presentation: Evolving Decision Making: AMPAC score 21, CMS score 32.79% GOALS Goals x1 week in hospital setting 1. Dressing- Pt will be able to demonstrate (I) in use of sock aid for donning socks and pt will be able to put on upper body garments with min (A). 2. Bathing- Sitting in chair pt will be able to (I) wash with soap and water and min (A) for (B) feet. 3. Toileting- Pt will be able to perform toileting routine on the toilet (I). 4. Eating- Pt will be able to cut her food and bring food to mouth translation (I). PLAN OF CARE/TREATMENT PLAN: 1x/day, 5 days/ week x 1week Initiate Occupational Therapy Services for bathing, dressing, grooming, toileting, eating, transfer training. DISCHARGE RECOMMENDATIONS Pt is not safe to return home at this time. OT recommends LTC for continued care when medically d/c per MD. TREATMENT TIME/MINUTES/CODES: IE 33 minutes, TAx1 (10:55) G Codes in the area of self- : washing oneself, toileting, dressing, eating and drinking, current status GO [id number] CJ projected status GO [id number]. Discharge status (if discharging) GO [id number]. Pebbles Rangel OTR/L
--- NOTE | 2018-03-07 14:44 | PT.INTREAT ---
Date of service: 03/07/18 Time of Service: 14:44 PT Notes Inpatient Physical Therapy Treatment Note Date: 03/07/18 PRECAUTIONS: Fall SUBJECTIVE: Lucy states that she is feeling very tired this afternoon and is having quite a bit of pain. OBJECTIVE: PAIN: Patient complains of pain, however is not specific regarding location of pain BED MOBILITY/TRANSFERS Sit-supine: Min A with HOB flat Sit-stand: Mod A from chair, CGA from bed and commode Stand-sit: CGA Chair-bed: CGA GAIT Assistive Device: FWW Weight bearing: Full Assist: CGA Distance: 5' +10' Deviation: Slow pace, leans to right THEREX: Patient completed several exercises while seated at the edge of the bed, for lower extremity strengthening, as per flow sheet. TOILETING: Patient toileted with assist for transfers. Patient requires encouragement to perform own perianal care and donning/doffing of brief. ASSESSMENT: Patient tolerated session with complaints of pain, although nonspecific about pain location. Patient also complained of increased fatigue following all activities performed. Patient would benefit from continued gait and transfer training as well as strengthening for improved mobility and ability to perform daily functional tasks. PLAN: Continue with PTs POC TREATMENT CODE/TIME: 30 minutes; TA/TP
--- NOTE | 2018-03-07 14:49 | PTTR_ITS ---
Date of service: 03/07/18 Time of Service: 14:44 PT Notes Inpatient Physical Therapy Treatment Note Date: 03/07/18 PRECAUTIONS: Fall SUBJECTIVE: Lucy states that she is feeling very tired this afternoon and is having quite a bit of pain. OBJECTIVE: PAIN: Patient complains of pain, however is not specific regarding location of pain BED MOBILITY/TRANSFERS Sit-supine: Min A with HOB flat Sit-stand: Mod A from chair, CGA from bed and commode Stand-sit: CGA Chair-bed: CGA GAIT Assistive Device: FWW Weight bearing: Full Assist: CGA Distance: 5' +10' Deviation: Slow pace, leans to right THEREX: Patient completed several exercises while seated at the edge of the bed, for lower extremity strengthening, as per flow sheet. TOILETING: Patient toileted with assist for transfers. Patient requires encouragement to perform own perianal care and donning/doffing of brief. ASSESSMENT: Patient tolerated session with complaints of pain, although non specific about pain location. Patient also complained of increased fatigue following all activities performed. Patient would benefit from continued gait and transfer training as well as strengthening for improved mobility and ability to perform daily functional tasks. PLAN: Continue with PTs POC TREATMENT CODE/TIME: 30 minutes; TA/TP
--- NOTE | 2018-03-07 15:42 | PGE_ITS ---
Date of Service Date of service: 03/07/18 Time of Service: 15:31 Assessment and Plan (1) Lumbar compression fracture: Current visit: Yes Status: Acute Recent fall with resultant new compression fracture at L3 and worsening of a previous compression fracture at L1. Continue pain control with acetaminophen, tramadol, Duragesic patch, Lidoderm patch. Continue PT/OT. Will likely require short term rehab at residential facility prior to discharge home. (2) Falls frequently: Current visit: Yes Status: Acute As above. Continue PT/OT. She has chronically been on anticoagulation with Apixiban for a PE, this is concerning with now frequent falls. It appears that she has been anticoagulated at least one year. Her Apixiban is currently on hold. She is also anemic. Continue to hold Apixiban. (3) Decubital ulcer: Current visit: Yes Status: Acute Continue dressings per wound care consult. (4) Open wound of scapular region without complication: Current visit: Yes Status: Acute With dressing intact. Continue dressing per wound consult. (5) Pulmonary embolism: Current visit: Yes Status: Chronic Hx of PE. Has been on anticoagulation for over a year. No current respiratory compromise. In the setting of falls, her anticoagulation is currently on hold. Continue to hold Apixiban for now. (6) DVT prophylaxis: Current visit: Yes Status: Acute Apixiban on hold due to falls. Hgb and Hct lower than baseline. Continue TEDs and SCDs. Reassess H&H in the morning. Hematest stools. (7) Anemia: Current visit: Yes Status: Chronic Appears chronic. Plan to hematest stools and obtain iron studies. Reassess CBC in the morning. (8) Hypokalemia: Current visit: Yes Status: Acute Her Potassium was low, she has received supplementation. Reassess BMP in the morning. Subjective Interval history since last seen: Lucy is a 77-year-old woman with multiple medical problems who recently moved back into her own home on 03/03/2018. Prior to that she had been living with her daughter since December because of loss of ADLs, frequent falls and compression fracture. She had only been home for 2 days, required constant attention from her daughter including all of her meals. Apparently, on the day of admission she was ambulating with her wheeled walker when the walker gave out. She fell, unwitnessed, striking her back and some part of the walker struck her in the head. There was no loss of consciousness. She denied dizziness or syncope. In the emergency room, her workup included a CT of the head and neck as well as plain films of her hip and CT of the hip and pelvis. A CT scan of the lumbar spine showed worsening compression of the L1 compression fracture from July 2017 and a new compression fracture in L3. She was admitted for pain control and physical therapy. Today she reports that her pain is well controlled with Fentanyl patch, APAP, tramadol and lidoderm patch. Her pain is currently 5/10, she reports that she can tolerate 5-6/10. She notes that her left shoulder is sore. She reports that she did not sleep well last night, she was restless, she reports that this occasionally happens at home. She denies chest pain/pressure, palpitations, shortness of breath, cough, wheezing. She is eating and drinking, no nausea or vomiting. She moved her bowels yesterday, she has been passing gas today. She is agreeable to care management sending referrals to residential facilities. She is aware that she will likely need rehab prior to returning home. Exam Narrative Exam Narrative: General: Sitting up in the chair, eating lunch, in no acute distress. Alert and oriented x3. Pale. answers questions appropriately. HEENT: normocephalic, atraumatic, pupils equal and round. Mucous membranes moist. Neck: supple, no JVD. Respiratory: respirations even and unlabored, lung sounds clear to auscultation throughout. Cardiovascular: Heart has regular rate and rhythm, 2/6 systolic murmur noted at right sternal border. Extremities: without clubbing, cyanosis or edema. Peripheral pulses palpable. Skin: bruise to left shoulder- appears to be healing. Dressing to back, left of midline, clean, dry, and intact. pressure area at left gluteal fold- not visualized. Objective Objective Clinical Data: Vital Signs Temperature 37.7 C H 03/07/18 13:28 Temperature Source Tympanic 03/07/18 13:28 Pulse 57 L 03/07/18 13:28 Pulse Rhythm Regular 03/07/18 12:29 Pulse 59 L 03/05/18 14:20 Respiratory Rate 18 03/07/18 13:28 Respiratory Effort Non-Labored 03/07/18 12:29 Respiratory Depth Normal 03/07/18 12:29 Respiratory Pattern Normal 03/07/18 12:29 Blood Pressure 122/66 03/07/18 13:28 Blood Pressure Mean 72 03/05/18 14:16 Blood Pressure Position Sitting 03/05/18 07:04 Pulse Oximetry 97 03/07/18 13:28 Respiratory End-tidal CO2 30 03/05/18 07:30 Oxygen Delivery Method Nasal Cannula 03/07/18 13:28 Oxygen Flow Rate 2 03/07/18 13:28 Pain Level 6 03/07/18 13:28 Comment 03/05/18 07:04 Intake & Output 03/06/18 03/07/18 03/07/18 23:59 11:59 23:59 Intake Total 1070 / 1070 930 / 1170 240 / 1170 Output Total 350 / 660 1450 / 1450 Balance 720 / 410 -520 / -280 240 / -280 Intake: Oral 1070 / 1070 930 / 1170 240 / 1170 Output: Urine 350 / 660 1450 / 1450 Other: Urine Color Yellow Straw Urine Appearance Clear Clear Clear Urine Odor Normal Normal Voiding Methods Bedside Commode Bedside Commode Laboratory Results WBC 7.27 k/cumm (4.4-10.8) 03/06/18 07:03 RBC 3.30 m/cumm (4.00-5.20) L 03/06/18 07:03 Hgb 8.3 g/dL (12.0-15.5) L 03/06/18 07:03 Hct 27.2 % (36.0-46.0) L 03/06/18 07:03 MCV 82.4 fL (80-95) 03/06/18 07:03 MCH 25.2 pg (27.0-33.0) L 03/06/18 07:03 MCHC 30.5 g/dL (32.0-36.0) L 03/06/18 07:03 RDW 17.3 % (11.7-14.6) H 03/06/18 07:03 Plt Count 206 x1000/uL (130-400) 03/06/18 07:03 MPV 10.0 fL (8.0-11.0) 03/06/18 07:03 Immature Gran % 0.4 03/06/18 07:03 Neutrophils % 74.1 03/06/18 07:03 Lymphocytes % 14.7 03/06/18 07:03 Monocytes % 5.8 03/06/18 07:03 Eosinophils % 4.7 03/06/18 07:03 Basophils % 0.3 03/06/18 07:03 Absolute Neutrophils 5.39 k/cumm (1.2-6.7) 03/06/18 07:03 Absolute Lymphocytes 1.07 k/cumm (1.2-3.4) L 03/06/18 07:03 Absolute Monocytes 0.42 k/cumm (0.11-0.7) 03/06/18 07:03 Absolute Eosinophils 0.34 k/cumm (0.0-0.7) 03/06/18 07:03 Absolute Basophils 0.02 k/cumm (0.0-0.2) 03/06/18 07:03 Sodium 141 mmol/L (136-145) 03/06/18 07:03 Potassium 3.2 mmol/L (3.5-5.1) L 03/06/18 07:03 Chloride 103 mmol/L (98-107) 03/06/18 07:03 Carbon Dioxide 29.4 mmol/L (21.0-32.0) 03/06/18 07:03 Anion Gap 8.6 mmol/L (3-11) 03/06/18 07:03 BUN 14 mg/dL (7-18) 03/06/18 07:03 Creatinine 1.12 mg/dL (0.55-1.02) H 03/06/18 07:03 Estimated GFR/1.73 m2 47.17 (mL/min/1.73m2) 03/06/18 07:03 Glucose 72 mg/dL (70-100) 03/06/18 07:03 Hemoglobin A1c 6.2 % (4.5-6.2) 03/06/18 07:03 Calcium 8.8 mg/dL (8.5-10.1) 03/06/18 07:03 Urine Color Yellow (Yellow) 03/06/18 10:12 Urine Clarity Clear 03/06/18 10:12 Urine pH 6.0 (5-8) 03/06/18 10:12 Ur Specific [place] 1.025 (1.005-1.025) 03/06/18 10:12 Urine Protein 30 mg/dL (Negative) H 03/06/18 10:12 Urine Ketones Negative mg/dL (Negative) 03/06/18 10:12 Urine Blood Trace-intact (Negative) H 03/06/18 10:12 Urine Nitrite Negative (Negative) 03/06/18 10:12 Urine Bilirubin Negative (Negative) 03/06/18 10:12 Urine Urobilinogen 0.2 EU/dL (Up TO 0.2) 03/06/18 10:12 Ur Leukocyte Esterase Negative (Negative) 03/06/18 10:12 Urine RBC 3-5 (0-2) H 03/06/18 10:12 Urine WBC 0-2 HPF (0-5) 03/06/18 10:12 Ur Epithelial Cells Moderate HPF (Negative) 03/06/18 10:12 Urine Crystals Negative HPF (Negative) 03/06/18 10:12 Urine Bacteria Many HPF (Negative) 03/06/18 10:12 Urine Casts Negative LPF (Negative) 03/06/18 10:12 Urine Mucus Negative (Negative) 03/06/18 10:12 Urine Other Negative (Negative) 03/06/18 10:12 Ur Culture Indicated? No/sq. contamination 03/06/18 10:12 Urine Glucose Negative mg/dL (Negative) 03/06/18 10:12
[2018-03-07 16:22] VITALS: BP 159/67; PULSE 70; RESP 18; TEMP 36.5; O2SAT 97
[2018-03-07] MEDS: Acetaminophen 325 MG TAB PO (17:24)
[2018-03-07] MEDS: Lidocaine 5% Patch 1 PATCH TP (18:16)
[2018-03-07] MEDS: Potassium Chloride 20 MEQ TABCR 40 MEQ PO (19:26)
[2018-03-07 23:47] VITALS: BP 133/68; PULSE 56; RESP 19; TEMP 36.1; O2SAT 94
[2018-03-08] MEDS: LIDOCAINE Patch Removal 1 EACH TP (05:24)
[2018-03-08] MEDS: Levothyroxine 150 MCG TAB PO (05:24)
[2018-03-08] MEDS: traMADol 50 MG TAB PO (06:56)
[2018-03-08 07:25] LABS: HCT 27.6 % (36.0-46.0); HGB 8.3 g/dL (12.0-15.5); Mean Corp. HGB Concentration 30.1 g/dL (32.0-36.0); Mean Corpuscular Hemoglobin 24.6 pg (27.0-33.0); Mean Corpuscular Volume 81.9 fL (80-95); Mean Platelet Volume 9.8 fL (8.0-11.0); Platelet Count 228 x1000/uL (130-400); RBC 3.37 m/cumm (4.00-5.20); RBC Distribution Width 17.1 % (11.7-14.6); White Blood Cell Count 8.24 k/cumm (4.4-10.8)
[2018-03-08 07:34] LABS: Iron 23 ug/dL (50-175); Total Iron Binding Capacity 235 ug/dL (250-450); Transferrin Sat 10 % (15-50)
[2018-03-08 07:40] VITALS: BP 185/74; PULSE 58; RESP 18; TEMP 37.1; O2SAT 95
[2018-03-08 07:48] LABS: Anion Gap 7.3 mmol/L (3-11); BUN 19 mg/dL (7-18); CO2 30.7 mmol/L (21.0-32.0); CREATININE 1.15 mg/dL (0.55-1.02); Calcium 8.7 mg/dL (8.5-10.1); Chloride 102 mmol/L (98-107); Estimated GFR 45.76 (mL/min/1.73m2); Ferritin 110 ng/mL (8-388); Glucose 86 mg/dL (70-100); Potassium 4.3 mmol/L (3.5-5.1); Sodium 140 mmol/L (136-145)
[2018-03-08] MEDS: Budesonide/Formoterol 80/4.5 6.9 GM 60 PUFF INH IH (08:21)
[2018-03-08] MEDS: Polyethylene Glycol 3350 17 GM PACKET PO (09:04)
[2018-03-08] MEDS: Pramipexole 0.5 MG TAB 1 MG PO (09:04)
[2018-03-08] MEDS: Atorvastatin 20 MG TAB PO (09:04)
[2018-03-08] MEDS: Furosemide 20 MG TAB 40 MG PO (09:04)
[2018-03-08] MEDS: Spironolactone 25 MG TAB PO (09:04)
[2018-03-08] MEDS: amLODIPine 10 MG TAB 5 MG PO (09:04)
[2018-03-08] MEDS: SERTRALINE 100 MG TAB 200 MG PO (09:05)
[2018-03-08] MEDS: Ticagrelor 90 MG TAB PO (09:05)
[2018-03-08] MEDS: Gabapentin 100 MG CAP 200 MG PO (09:05)
[2018-03-08] MEDS: Potassium Chloride 20 MEQ TABCR 40 MEQ PO (09:05)
[2018-03-08] MEDS: glipiZIDE 10 MG TAB PO (09:05)
[2018-03-08] MEDS: Omeprazole 20 MG CAPCR 40 MG PO (09:05)
--- NOTE | 2018-03-08 09:14 | OT.INTREAT ---
Date of service: 03/08/18 Time of Service: 08:35 Occupational Therapy Notes Occupational Therapy Inpatient Treatment Note Date: 03/08/18 PRECAUTIONS: Fall Precautions, Standard Precautions SUBJECTIVE: Pt was sitting in her chair eating breakfast when OT arrived. She was agreeable to OT session and was very alert during session. OBJECTIVE: PAIN:c/o 8/10 pain in back BATHING: Sitting in chair Upper Body: (I) with washing upper body, needs max (A) for back otherwise (I) with face, (B) UE and abdomen Lower Body: Max (A) feet as pt reports she is unable to reach down to her feet to wash them, (I) (B) legs above the knee and min (A) groin area. DRESSING: Sitting in chair Upper Extremity: (I) don and doff hospital gown in hospital setting Lower Extremity: (I) able to doff (B) socks, max (A) with donning socks. Pt does use sock aid at home and OT will give one to pt at next session to increase her (I) in LE dressing routine. GROOMING: Sitting in chair pt was able to (I) brush her hair with use of (L) arm. (R) arm has decreased AROM. EATING: Pt was (I) with eating routine including cutting food and bring food to mouth. ASSESSMENT: Pt demonstrated increased (I) with bathing and dressing routines during todays session. Pt performed most of her ADLs sitting in a chair and would benefit from skilled OT intervention for initiation of strengthening and functional ROM of UE as well as progression of grooming routines to be performed at her sink which is her premorbid level of function. PLAN: Initiation of UE functional strengthening and ROM program Standing at sink for grooming routines TREATMENT CODES/TIME: Self Carex3, 46 minutes (08:35) JENIFER Sweeney/Jerald
--- NOTE | 2018-03-08 09:59 | PT.INTREAT ---
Date of service: 03/08/18 Time of Service: 09:59 PT Notes Inpatient Physical Therapy Treatment Note Date: 03/08/18 PRECAUTIONS: Fall SUBJECTIVE: Lucy is agreeable to PT following encouragement. OBJECTIVE: PAIN: No c/o pain BED MOBILITY/TRANSFERS Sit-stand: CGA Stand-sit: CGA GAIT Assistive Device: FWW Weight bearing: Full Assist: CGA Distance: 75' x2 Deviation: Seated rest x1, slow pace, 2L O2 via NC ASSESSMENT: Patient tolerated session well without complaint. She was able to tolerate a progression in gait distance with FWW support and seated rest x1. She would benefit from continued gait and transfer training for improved mobility. PLAN: Continue with PT's POC TREATMENT CODE/TIME: 25 minutes; TAx2
--- NOTE | 2018-03-08 11:41 | PDOC.CMDIS ---
- If Service Date Differs Date of service: 03/08/18 Time of Service: 11:41 LACE Index Scoring Tool - Questions: Length of Stay (in days): 4 - 6 Acuity (Admit via E.D.?): Yes Care Management Discharge Reason for Hospitalization: Lumbar compression fracture Discharge Plan: CM faxed referrals to [facility] and followed up with [facility]. Both have accepted the patient she has made the choice to return to [facility]. Lucy is hesitatant r/t discharge plan and feels she could use a few more days in the hospital. CM provided education to the patient r/t benfits and levels of care including acute and chronic conditions. Lucy is accepts the bed and agrees to be discharged today. CM to coorindate transportation to facility. CM contacted Michaela who is going to have a family member drive Lucy to [facility]. CM communitcated discharge plan to provider, and primary team. Patient/Family Education Needs: Discharge education, limitations and follow up plan of care. Services Needed at Discharge: [facility] Facility
--- NOTE | 2018-03-08 12:06 | W.PM.DS.N ---
Date of service: 03/08/18 Time of Service: 12:06 DS: Diagnosis Discharge Diagnosis (1) Lumbar compression fracture: Status: Acute (2) Falls frequently: Status: Acute (3) Decubital ulcer: Status: Acute (4) Open wound of scapular region without complication: Status: Acute (5) Pulmonary embolism: Status: Chronic (6) Anemia: Status: Chronic (7) Hypokalemia: Status: Acute Discharge Plan Disposition Patient Disposition: SKILLED NSG. 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 Apparently she had been at a [facility] for [facility], then transitioned to her daughter's house, she finally made back to living independently in her own home 2 days before she fell which resulted in an L3 compression fracture and worsening of her L1 fracture as noted on CT in the ED. She had no loss of bowel or bladder, no saddle anesthesia, no numbness or tingling of her extremities. She was admitted to the hospital for pain control and PT. She denied any dizziness, lightheadedness or loss of consciousness prior to the fall, she remembered the events preceding and after the fall. While in the ED, she also had a CT of her head and neck as well as plain films of her hip and CT of the hip and pelvis. Her initial labs were notable for low potassium of 3.2 that was corrected with supplementation. Her creatinine was elevated but not as high as her baseline. She had stable anemia. She was on Apixiban on presentation for a history of PE, however, this was held due to her frequent falls, she reports that she had one incidence of PE and there is no documented history of atrial fibrillation. This will be held upon discharge. Her Brilinta will be resumed as she has a history of CAD and CABG and her anemia is stable. Follow up Hgb and Hct are recommended. She was also noted to be bradycardic to the 40s and low 50s, which could have possibly contributed to her fall, review of her record notes that she was on Bystolic with TID dosing. Her Bystolic order was changed to daily dosing. with some improvement in her heart rates to 50s-70. Her back pain was controlled with her chronic fentanyl patch as well as APAP, tramadol (BID dosing) and lidoderm patch. She worked with PT who did not feel that she was safe to return home independently and recommended short term vs prison placement at [facility]. [facility] for ongoing PT and OT as well as nursing oversight. Home Meds and New Rx's Prescriptions: New polyethylene glycol 3350 17 gram Powder In Packet 17 g PO DAILY Qty: 0 RF: 0 Continued folic acid 1 MG tablet 1 mg PO DAILY RF: 0 glipizide 10 MG tablet 10 mg PO BID RF: 0 cyanocobalamin (vitamin B-12) [Vitamin B-12] 1,000 MCG tablet 1,000 mcg PO DAILY RF: 0 atorvastatin [Lipitor] 40 MG tablet 20 mg PO DAILY AM RF: 0 Brilinta 90 MG tablet 90 mg PO BID RF: 0 amlodipine 10 MG tablet 5 mg PO DAILY RF: 0 nitroglycerin [Nitrostat] 0.4 MG tablet, sublingual 1 tab Sublingual PRN PRNRF: 0 pramipexole [Mirapex] 1 mg Tablet 1 mg PO BID RF: 0 dicyclomine [Bentyl] 10 mg/mL Solution 20 mg Q6H PRNRF: 0 sucralfate [Carafate] 1 gram Tablet 1 g PO DIRECTED RF: 0 meclizine 12.5 mg Tablet 12.5 mg PO TID PRNRF: 0 lidocaine 5 % Adhesive Patch,Medicated 1 patch TOPICAL DAILY PRNRF: 0 furosemide 20 mg Tablet 40 mg PO DAILY RF: 0 Advair Diskus 100-50 mcg/dose Blister With Device 1 puff INHALATION Q12H RF: 0 fentanyl 12 MCG patch 72 hour 25 mcg Transdermal Q72H Qty: 2 RF: 0 omeprazole 20 MG capsule,delayed release(DR/EC) 40 mg PO BID@0730,1999 RF: 0 sertraline 100 MG tablet 200 mg PO DAILY RF: 0 levalbuterol tartrate [Xopenex HFA] 200 PUFF HFA aerosol inhaler 1 - 2 puff Inhalation Q4H PRN PRNRF: 0 cholecalciferol (vitamin D3) 1,000 UNITS tablet 2,000 units PO DAILY RF: 0 Loratadine 10 MG Capsule 10 mg PO DAILY RF: 0 coenzyme [id number] [Co Q-10 (with Vit E)] 1 EACH capsule 1 ea PO DAILY RF: 0 levothyroxine [Synthroid] 150 MCG tablet 150 mcg PO DAILY AM RF: 0 spironolactone 25 MG tablet 25 mg PO DAILY AM RF: 0 Changed tramadol 50 MG tablet 50 mg PO TID PRN (Reason: Back Pain) Qty: 9 RF: 0 magnesium oxide 400 MG tablet 400 mg PO DAILY Qty: 60 RF: 0 gabapentin 300 MG capsule 200 mg PO TID Qty: 0 RF: 0 Bystolic 20 MG tablet 10 mg PO DAILY Qty: 0 RF: 0 Discontinued nystatin 15 GM powder 1 gm Topical BID PRN PRNRF: 0 Eliquis 5 MG tablet 5 mg PO BID Qty: 60 RF: 2 Discharge Instructions Instructions: Vertebral Compression Fracture (DC) Activity:: Activity as Tolerated Equipment/Supplies:: Blood Glucose Monitor Diet:: Low NA and carb counting. Discharge Orders Discharge Orders: Discharge Order (Routine); Ordered 03/08/18 Ordered By: Eliana Newman Exam Narrative Exam Narrative: General: Sitting up in the chair, working on puzzle, in no acute distress. Alert and oriented x3. Pale. answers questions appropriately. HEENT: normocephalic, atraumatic, pupils equal and round. Mucous membranes moist. Neck: supple, no JVD. Respiratory: respirations even and unlabored, lung sounds clear to auscultation throughout. Cardiovascular: Heart has regular rate and rhythm, 2/6 systolic murmur noted at right sternal border. Extremities: without clubbing or cyanosis, mild edema to bilateral ankles. Peripheral pulses palpable. Skin: bruise to left shoulder- appears to be healing. Dressing to back, left of midline, clean, dry, and intact. pressure area at left gluteal fold- not visualized. DS: Data Vitals/I&O Vitals and I&O: Vital Signs Temperature 37.1 C 03/08/18 07:40 Temperature Source Tympanic 03/08/18 07:40 Pulse 58 L 03/08/18 07:40 Pulse Rhythm Regular 03/08/18 09:52 Pulse 59 L 03/05/18 14:20 Respiratory Rate 18 03/08/18 07:40 Respiratory Effort Non-Labored 03/08/18 09:52 Respiratory Depth Normal 03/08/18 09:52 Respiratory Pattern Normal 03/08/18 09:52 Blood Pressure 185/74 H 03/08/18 07:40 Blood Pressure Mean 72 03/05/18 14:16 Blood Pressure Position Sitting 03/05/18 07:04 Pulse Oximetry 95 03/08/18 07:40 Respiratory End-tidal CO2 30 03/05/18 07:30 Oxygen Delivery Method Nasal Cannula 03/08/18 07:40 Oxygen Flow Rate 2 03/08/18 07:40 Pain Level 7 03/08/18 07:40 Comment 03/05/18 07:04 Intake & Output 03/07/18 03/08/18 03/08/18 23:59 11:59 23:59 Intake Total 480 / 1410 250 / 250 Output Total 200 / 1650 400 / 400 Balance 280 / -240 -150 / -150 Intake: Oral 480 / 1410 250 / 250 Output: Urine 200 / 1650 400 / 400 Other: Urine Color Yellow Yellow Urine Appearance Clear Clear Urine Odor Normal Normal Voiding Methods Bedside Commode Bedside Commode Completed studies during hospitalization [Text1]: 11/03/17: NONCONTRAST HEAD CT: Comparison is made with 10/09/17. No intracranial hemorrhage, mass or acute infarct is seen. There is mild atrophy and mild patchiness of the white matter consistent with small vessel disease again noted. There is no change in ventricular size. There is no evidence of skull fracture. The sinuses and mastoid air cells are unremarkable. IMPRESSION: No acute abnormality. CERVICAL SPINE CT: The exam is somewhat limited by motion. There is no evidence of an acute fracture. There are degenerative disc changes greatest at C 3-4 and C 5-6. IMPRESSION: Degenerative changes. No acute abnormality. LUMBAR SPINE CT: Comparison is made with 07/26/17. The previous exam showed a mild compression fracture of the superior endplate of L 1. There is now severe compression fracture of L 1 of approximately two thirds. There is now also mild compression fracture of the superior endplate of L 3. Degenerative disc changes and facet degenerative changes are noted. IMPRESSION: Acute mild compression fracture of L 3. Interval worsening of the previously noted L 1 compression fracture, now severe. Labs on day of discharge: Labs from last 24 hours 03/08/18 03/08/18 03/08/18 06:37 06:37 06:37 WBC 8.24 RBC 3.37 L Hgb 8.3 L Hct 27.6 L MCV 81.9 MCH 24.6 L MCHC 30.1 L RDW 17.1 H Plt Count 228 MPV 9.8 Sodium 140 Potassium 4.3 D Chloride 102 Carbon Dioxide 30.7 Anion Gap 7.3 BUN 19 H Creatinine 1.15 H Estimated GFR/1.73 m2 45.76 Glucose 86 Calcium 8.7 Iron 23 L TIBC 235 L Transferrin % Sat 10 L Ferritin 110 PFSH Medical History Open wound of scapular region without complication (Acute) Decubital ulcer (Acute) Pulmonary embolism (Chronic) Hx of CABG (Resolved ~2000) PVD (peripheral vascular disease) (Chronic) Anemia (Chronic) Cholelithiasis without cholecystitis (Chronic) LVH (left ventricular hypertrophy) (Chronic) CAD (coronary artery disease) (Chronic) Asthma (Chronic) Low back pain (Chronic) Peripheral vascular disease (Chronic) CKD (chronic kidney disease), stage III (Chronic) Morbid obesity (Chronic) Anxiety (Chronic) Hypothyroidism (Chronic) Type 2 diabetes mellitus (Chronic) Vitamin B 12 deficiency (Chronic) Polymyalgia rheumatica (Chronic) Venous stasis dermatitis of both lower extremities (Chronic) Compression fracture of L1 lumbar vertebra (Chronic ~07/2017) Falls frequently (Acute) Decreased performance of ADLs (Acute) Acute prerenal azotemia (Resolved) Aortic stenosis, moderate (Chronic ~07/2017) Social History Smoking/Tobacco Use Status: Never additional social history: Lives alone in her own home since 03/03/2018. Prior to that was living with her daughter from December 2017 until 03/03/2018. She was at a correction in [place] prior to moving in with her daughter. She was discharged from [facility] July 2017 to [facility] and was transferred to [place] from there. Lifelong non-smoker. Alcohol is not a problem for her.
--- NOTE | 2018-03-08 12:30 | CMDISCH_ITS ---
- If Service Date Differs Date of service: 03/08/18 Time of Service: 11:41 LACE Index Scoring Tool - Questions: Length of Stay (in days): 4 - 6 Acuity (Admit via E.D.?): Yes Care Management Discharge Reason for Hospitalization: Lumbar compression fracture Discharge Plan: CM faxed referrals to [facility] and followed up with [facility]. Both have accepted the patient she has made the choice to return to [facility]. Lucy is hesitatant r/t discharge plan and feels she could use a few more days in the hospital. CM provided education to the patient r/t benfits and levels of care including acute and chronic conditions. Lucy is accepts the bed and agrees to be discharged today. CM to coorindate transportation to facility. CM contacted Michaela who is going to have a family member drive Lucy to [facility]. CM communitcated discharge plan to provider, and primary team. Patient/Family Education Needs: Discharge education, limitations and follow up plan of care. Services Needed at Discharge: Custodial Facility
--- NOTE | 2018-03-08 13:01 | PT.DS ---
Date of service 03/08/18 Time of Service 13:01 PT Notes Inpatient Physical Therapy Discharge Summary Dates: 03/08/18 Dates of Service: 03/06/18-03/08/18 SUBJECTIVE: NT OBJECTIVE: 03/06/18-03/08/18 BED MOBILITY/TRANSFERS: Supine-sit :minAx1 Sit-supine :minAx1 Sit-stand : CGA Stand-sit : CGA Bed-Chair CGA Chair-bed CGA GAIT: CGA with FWW 150ft BALANCE: Static sitting: normal Dynamic sitting: normal Static standing: fair Dynamic standing:fair ASSESSMENT: Pt was seen for 4 PT visits. Progressed from CGA gait with FWW 3ft to CGA gait with FWW 150ft. Pt continues to be Alisa/CGA for transfers. She is being discharged to skilled nursing care facility for continued rehab. GOALS 1. Supine-Sit: supervision 2. Sit-Supine: supervision 3. Sit-Stand : supervision 4. Stand-Sit : supervision 5. Bed-Chair : supervision with WW 6. Chair-Bed : supervision with WW 7. Gait : supervision with WW x 50' Pt did not meet therapy goals - continue PT at rehab DISCHARGE RECOMMENDATIONS: [facility] G Codes in the area mobility of walking and moving around: projected status GP [id number]. Discharge status (if discharging) GP [id number] DEENA Rowland PT
--- NOTE | 2018-03-09 08:03 | OTDS_ITS ---
Date of service: 03/09/18 Time of Service: 08:02 Occupational Therapy Notes Occupational Therapy Inpatient Discharge Summary Date: 03/09/18 for 03/08/18 Dates of Service: 03/07/18-03/08/18 PRECAUTIONS: Fall precautions, standard precautions SUBJECTIVE: NT OBJECTIVE: Dates of Service: 03/07/18-03/08/18 FUNCTIONAL MOBILITY/ADLS: Sit-stand: CGA, FWW Stand-sit: CGA, FWW BATHING Upper Body: (I) with max (A) back Lower Body: max (A) (B) feet, min (A) pelvic area DRESSING Upper body: (I) donning and doffing hospital gown Lower Body: Max (A) (B) socks donning, (I) doffing GROOMING: (I) brushing hair sitting in chair EATING: (I) with bringing food to mouth and cutting food. ASSESSMENT: Patient is a 77-year-old female referred to occupational therapy services with diagnosis of admitted through the ER after a reported fall in her home which led to a compression fx at L3 in setting of Frequent falls, with history of previous compression fracture. Aortic stenosis; CAD; history of PE, on chronic anticoagulation, which was discontinued on 03/05/18 and decubital ulcer. Pt was seen for 2 OT sessions demonstrating increased (I) in ADLs includ ing bathing while sitting and dressing UE. Pt was discharged on 03/08/18 to [facility]. GOALS 1. Dressing- Pt will be able to demonstrate (I) in use of sock aid for donning socks and pt will be able to put on upper body garments with min (A). 2. Bathing- Sitting in chair pt will be able to (I) wash with soap and water and min (A) for (B) feet. 3. Toileting- Pt will be able to perform toileting routine on the toilet (I). 4. Eating- Pt will be able to cut her food and bring food to mouth translation (I). Pt met goals 1 and 4. PLAN: Pt was discharged to [facility] TREATMENT CODES/TIME: G Codes in the area of self- : washing oneself, toileting, dressing, eating and drinking, current status GO [id number] CJ projected status GO [id number]. Discharge status (if discharging) GO [id number]. Pebbles Rangel, OTR/L
== END 2018-03-08 15:03 | disposition skilled nursing facility (03) | DRG 552 ==
LOC: ER 13:38 → MS 03-07 13:15
PROVIDERS: Nurse Practitioner; Admitting Provider Family Medicine; Emergency Provider Student in an Organized Health Care Education/Training Program; PCP Family Medicine; Visit Provider Internal Medicine
DX: S32.030A Wedge compression fracture of third lumbar vertebra, initial encounter for closed fracture (principal); S32.010A Wedge compression fracture of first lumbar vertebra, initial encounter for closed fracture; W19.XXXA Unspecified fall, initial encounter; Z91.81 History of falling; Y92.019 Unspecified place in single-family (private) house as the place of occurrence of the external cause; Z60.2 Problems related to living alone; E87.6 Hypokalemia; Z86.711 Personal history of pulmonary embolism; Z79.01 Long term (current) use of anticoagulants; R00.1 Bradycardia, unspecified; S09.90XA Unspecified injury of head, initial encounter; W22.8XXA Striking against or struck by other objects, initial encounter; S40.212A Abrasion of left shoulder, initial encounter; X58.XXXA Exposure to other specified factors, initial encounter; E11.22 Type 2 diabetes mellitus with diabetic chronic kidney disease; N18.3 Chronic kidney disease, stage 3 (moderate); E03.9 Hypothyroidism, unspecified; G89.29 Other chronic pain; Z79.891 Long term (current) use of opiate analgesic; I35.0 Nonrheumatic aortic (valve) stenosis; I25.10 Atherosclerotic heart disease of native coronary artery without angina pectoris; D53.9 Nutritional anemia, unspecified; L89.90 Pressure ulcer of unspecified site, unspecified stage
CPT/HCPCS: 36415; 36416; 80048; 82962; 85027; 94640; 97110; 97163; 97167; 97530; 97535; 99222; 99232; 99239; 99285; 70450; 72125; 72131; 73502; 81003; 81015; 82728; 83036; 83540; 83550; 85025; G0378; J3490

== ENCOUNTER 2018-07-22 19:18 | Observation (INO) | payer MEDICARE, MEDICAID, SELFPAY ==
[2018-07-22] VITALS (45 sets, daily range): BP systolic 94–153; BP diastolic 38–93; PULSE 43–73; RESP 13–28; TEMP 36.6; O2SAT 93–98
[2018-07-22 20:17] LABS: Abs Immature Grans 0.02 k/cumm (0.0-0.09); Absolute Basophil Count 0.03 k/cumm (0.0-0.2); Absolute Eosinophil Count 0.28 k/cumm (0.0-0.7); Absolute Lymphocyte Count 2.45 k/cumm (1.2-3.4); Absolute Neutrophil Count 5.26 k/cumm (1.2-6.7); Basophils % 0.3; Eosinophils % 3.2; HCT 26.8 % (36.0-46.0); HGB 8.1 g/dL (12.0-15.5); Immature Grans % 0.2; Mean Corp. HGB Concentration 30.2 g/dL (32.0-36.0); Mean Corpuscular Hemoglobin 24.7 pg (27.0-33.0); Mean Corpuscular Volume 81.7 fL (80-95); Mean Platelet Volume 9.4 fL (8.0-11.0); Neutrophils % 60.3; Platelet Count 209 x1000/uL (130-400); RBC 3.28 m/cumm (4.00-5.20); RBC Distribution Width 19.3 % (11.7-14.6); White Blood Cell Count 8.74 k/cumm (4.4-10.8)
--- NOTE | 2018-07-22 20:30 | DI.RAD_ITS ---
SYMPTOMS/DIAGNOSIS: WEAKNESS, LETHARGY, PERIOD OF CONFUSION PA AND LATERAL CHEST: Comparison is made with October,. The heart is enlarged. The patient is status post CABG. There is pulmonary vascular prominence and increased bilateral interstitial markings consistent with CHF. No effusions are seen. IMPRESSION: Cardiomegaly and CHF.
--- NOTE | 2018-07-22 20:30 | DI.CT_ITS ---
SYMPTOMS/DIAGNOSIS: WEAKNESS, LETHARGY, PERIOD OF CONFUSION NONCONTRAST HEAD CT: Comparison is made with February,. Atrophy is again noted, consistent with the patient's age. There is decreased attenuation in the white matter consistent with small vessel disease, which is mild. No superimposed hemorrhage, infarct or mass is seen. There is no evidence of skull fracture. There is minimal mucosal thickening in the maxillary sinuses. The mastoid air cells appear clear. IMPRESSION: No acute abnormality.
[2018-07-22 20:31] LABS: Anisocytosis 1+; Hypochromasia 1+
[2018-07-22 20:41] LABS: ALT 15 U/L (12-78); AST 18 U/L (15-37); Alkaline Phosphatase 85 U/L (46-116); Anion Gap 6.4 mmol/L (3-11); BUN 19 mg/dL (7-18); Bilirubin, Total 0.3 mg/dL (0.2-1.0); CO2 30.6 mmol/L (21.0-32.0); CREATININE 1.18 mg/dL (0.55-1.02); Calcium 8.9 mg/dL (8.5-10.1); Chloride 101 mmol/L (98-107); Glucose 103 mg/dL (70-100); Magnesium 2.1 mg/dL (1.8-2.4); Potassium 4.2 mmol/L (3.5-5.1); Sodium 138 mmol/L (136-145); TSH 1.79 uIU/mL (0.358-3.74); Total Protein 7.4 g/dL (6.4-8.2); Troponin I 0.02 ng/mL (0.00-0.06)
--- NOTE | 2018-07-22 20:59 | DI.VRAD_ITS ---
EXAM: CT Head Without Contrast EXAM DATE/TIME: 07/22/2018 7:42 PM CLINICAL HISTORY: 78 years old, female; Signs and symptoms; Altered mental status/memory loss and other: General weakness, lethargy and confusion; Confusion or disorientation TECHNIQUE: Imaging protocol: Axial computed tomography images of the head without contrast. Coronal and sagittal reformatted images were created and reviewed. Radiation optimization: All CT scans at this facility use at least one of these dose optimization techniques: automated exposure control; mA and/or kV adjustment per patient size (includes targeted exams where dose is matched to clinical indication); or iterative reconstruction. COMPARISON: CT HEAD AND CSPINE W/O CONTRAST 10/09/2017 11:33 PM FINDINGS: Brain: Global cerebral atrophy is consistent with patient's age. Decreased attenuation within the white matter tracts of both cerebral hemispheres is nonspecific but typically seen with small vessel disease/chronic white matter ischemic changes of aging. No CT scan evidence of acute stroke. No intracranial hemorrhage or mass effect. Physiologic calcification of the basal ganglia. Ventricles: Unremarkable. No ventriculomegaly. Bones/joints: Unremarkable. No acute fracture. Sinuses: Minimal mucosal thickening of the maxillary sinuses. Mastoid air cells: Visualized mastoid air cells are well aerated. No mastoid effusion. Soft tissues: Unremarkable. IMPRESSION: No acute abnormality. Dictated and Authenticated by: Evans Torres MD. Ordering:MELLO Nathan MD
--- NOTE | 2018-07-22 21:03 | DI.VRAD_ITS ---
EXAM: XR Chest, 2 Views EXAM DATE/TIME: 07/22/2018 7:42 PM CLINICAL HISTORY: 78 years old, female; Signs and symptoms; Other: Weakness, lethargy and confusion; Prior surgery; Surgery date: 6+ months TECHNIQUE: Imaging protocol: XR of the chest, 2 views. COMPARISON: SC CHEST ONE VIEW IN RAD DEPT 10/09/2017 11:28 PM FINDINGS: Lungs: Mild pulmonary vascular congestion. Mild thickening of the pulmonary fissures. Possible patchy densities in the lateral right lower lobe. Differential diagnosis includes atelectasis and pneumonia. Other pulmonary lesions are not excluded. Pleural space: Septal line thickening within the left mid and lower lung zones. No pleural effusion or pneumothorax. Heart/Mediastinum: Status post CABG. Borderline cardiomegaly. Bones/joints: Unremarkable. IMPRESSION: 1. Status post CABG with findings suspicious for mild CHF. 2. Possible patchy densities in the lateral right lower lobe. Differential diagnosis includes atelectasis and pneumonia. Other pulmonary lesions are not excluded. Dictated and Authenticated by: Evans Torres MD. Ordering:MELLO Nathan MD
--- NOTE | 2018-07-22 21:51 | ED.GENADUL_ITS ---
Discharge Plan Disposition Patient Disposition: [facility] INPATIENT Condition: Good Discharge Details Chief Complaint: AMS/LOC Clinical Impression: Altered mental status, Anemia, Lethargy Primary Care Provider: Perry Graham ED Provider: Jac Monte Home Meds and New Rx's Prescriptions: No Action cyanocobalamin (vitamin B-12) [Vitamin B-12] 1,000 MCG tablet 1,000 mcg PO DAILY RF: 0 atorvastatin [Lipitor] 40 MG tablet 20 mg PO DAILY AM RF: 0 Brilinta 90 MG tablet 90 mg PO BID RF: 0 amlodipine 10 MG tablet 5 mg PO DAILY RF: 0 nitroglycerin [Nitrostat] 0.4 MG tablet, sublingual 1 tab Sublingual PRN PRNRF: 0 pramipexole [Mirapex] 1 mg Tablet 1 mg PO BID RF: 0 dicyclomine [Bentyl] 10 mg/mL Solution 20 mg Q6H PRNRF: 0 sucralfate [Carafate] 1 gram Tablet 1 g PO DIRECTED RF: 0 lidocaine 5 % Adhesive Patch,Medicated 1 patch TOPICAL DAILY PRNRF: 0 furosemide 20 mg Tablet 40 mg PO DAILY RF: 0 fluticasone propion-salmeterol [Advair Diskus] 100-50 mcg/dose Blister With Device 1 puff INHALATION Q12H RF: 0 polyethylene glycol 3350 17 gram Powder In Packet 17 g PO DAILY Qty: 0 RF: 0 tramadol 50 MG tablet 50 mg PO TID PRN (Reason: Back Pain) Qty: 9 RF: 0 magnesium oxide 400 MG tablet 400 mg PO DAILY Qty: 60 RF: 0 gabapentin 300 MG capsule 200 mg PO TID Qty: 0 RF: 0 fentanyl 12 MCG patch 72 hour 25 mcg Transdermal Q72H Qty: 2 RF: 0 Bystolic 20 MG tablet 10 mg PO DAILY Qty: 0 RF: 0 ferrous gluconate 324 mg (37.5 mg iron) Tablet 324 mg PO BID RF: 0 omeprazole 20 MG capsule,delayed release(DR/EC) 40 mg PO BID@30,1999 RF: 0 sertraline 100 MG tablet 200 mg PO DAILY RF: 0 levalbuterol tartrate [Xopenex HFA] 200 PUFF HFA aerosol inhaler 1 - 2 puff Inhalation Q4H PRN PRNRF: 0 cholecalciferol (vitamin D3) 1,000 UNITS tablet 2,000 units PO DAILY RF: 0 coenzyme [id number] E [Co Q-10 (with Vit E)] 1 EACH capsule 1 ea PO DAILY RF: 0 levothyroxine [Synthroid] 150 MCG tablet 150 mcg PO DAILY AM RF: 0 spironolactone 25 MG tablet 25 mg PO DAILY AM RF: 0 Medical Decision Making Patient is a 78-year-old female who presents to the emergency department with a unresponsive episode witnessed by family. Patient states she feels foggy at times and somewhat fatigued. Her vitals here are stable. She is without fever. No focal deficits noted on exam. No abdominal pain. Her labs demonstrate trending down anemia. She does report melanotic stools however has been on iron supplementation. She has well-documented anemia in the past and has chronic kidney disease. She denies any dyspnea or chest pain. Her head CT today was read as normal. She has questionable findings for pneumonia on her chest x-ray, however she denies any shortness of breath or cough. Normal white count and lactate here. I do not suspect infectious pathology at this time. Urine shows no evidence of UTI. In all likely her symptoms earlier today are related to her increase in fentanyl dosing. She recently increased to 25 mcg and has reported an increase in lethargy since. Regardless the patient did have what family describes as an unresponsive episode and I feel admission is necessary as she remains a full code. I discussed the case with her primary care provider and h ospitalist Dr. Nicholson. He will evaluate patient in the emergency department and discuss with the family about withdrawing full CODE STATUS as we do not have any telemetry beds available at this time. If she refuses to withdrawal her CODE STATUS she may require transfer. He also agrees that in all likelihood the patients symptoms are medication related. Patient will be admitted under MedSurg observation. HPI General Date/Time Provider Initiated Documentation: 07/22/18 19:40 . HPI Narrative: Patient is a 78-year-old female with a significant past medical history for coronary artery disease, type 2 diabetes, hypothyroidism, chronic kidney disease stage III, chronic anemia, peripheral vascular disease, L1 compression fracture status post 5 months in an acute rehab facility, pneumonia who presents to the emergency department with a period of unresponsiveness as reported by family members. She was more lethargic today than normal where she went to bed at around 2 PM. Patient family states that they attempted to wake her up at around 4 and was unsuccessful. They tried again at 5 PM and the patient was extremely fatigued and not acting right. Patient states that she remembers the events however things were foggy. She denies any chest pain or shortness of breath. She has felt more fatigued since being discharged from the detention the last 2 weeks. Daughter who is here with her states that she is also noted a decline in her energy level. Patient does report black melanotic stools however has been taking iron supplementation for her chronic anemia. She denies any abdominal pain or diarrhea. She was recently seen in her PCPs office where she had a increase to her fentanyl patch from 12.5 mcg to 25 mcg. Her most recent patch was placed 2 days ago by her daughter Related Data Home Medications Medication Instructions Recorded Confirmed cyanocobalamin (vitamin B-12) 1,000 mcg PO DAILY 07/05/12 07/22/18 [Vitamin B-12] Brilinta 90 mg PO BID 03/11/13 07/22/18 atorvastatin [Lipitor] 20 mg PO DAILY AM 03/11/13 07/22/18 amlodipine 5 mg PO DAILY 06/27/14 07/22/18 nitroglycerin [Nitrostat] 1 tab SUBLINGUAL PRN PRN 06/27/14 07/22/18 omeprazole 40 mg PO BID@0730,199904/01/16 07/22/18 sertraline 200 mg PO DAILY 05/17/16 07/22/18 levalbuterol tartrate [Xopenex HFA] 1 - 2 puff INHALATION Q4H PRN PRN 05/18/16 07/22/18 inh cholecalciferol (vitamin D3) 2,000 units PO DAILY 10/08/16 07/22/18 coenzyme [id number] E [Co Q-10 1 ea PO DAILY 05/24/17 07/22/18 (with Vit E)] levothyroxine [Synthroid] 150 mcg PO DAILY AM 10/09/17 07/22/18 spironolactone 25 mg PO DAILY AM 10/09/17 07/22/18 dicyclomine [Bentyl] 20 mg Q6H PRN 03/05/18 07/22/18 fluticasone propion-salmeterol 1 puff INHALATION Q12H 03/05/18 07/22/18 [Advair Diskus] furosemide 40 mg PO DAILY 03/05/18 07/22/18 lidocaine 1 patch TOPICAL DAILY PRN 03/05/18 07/22/18 pramipexole [Mirapex] 1 mg PO BID 03/05/18 07/22/18 sucralfate [Carafate] 1 g PO DIRECTED 03/05/18 07/22/18 Bystolic 10 mg PO DAILY #0 tab 03/08/18 07/22/18 fentanyl 25 mcg TRANSDERMAL Q72H #2 ea 03/08/18 07/22/18 gabapentin 200 mg PO TID #0 cap 03/08/18 07/22/18 magnesium oxide 400 mg PO DAILY #60 tab 03/08/18 07/22/18 polyethylene glycol 3350 17 g PO DAILY #0 ea 03/08/18 07/22/18 tramadol 50 mg PO TID PRN #9 tab 03/08/18 07/22/18 ferrous gluconate 324 mg PO BID 07/22/18 07/22/18 Previous Rx's Medication Instructions Recorded levalbuterol tartrate [Xopenex HFA] 1 - 2 puff INHALATION Q4H PRN PRN 05/18/16 inh Bystolic 10 mg PO DAILY #0 tab 03/08/18 fentanyl 25 mcg TRANSDERMAL Q72H #2 ea 03/08/18 gabapentin 200 mg PO TID #0 cap 03/08/18 magnesium oxide 400 mg PO DAILY #60 tab 03/08/18 polyethylene glycol 3350 17 g PO DAILY #0 ea 03/08/18 tramadol 50 mg PO TID PRN #9 tab 03/08/18 Allergies Allergy/AdvReac Type Severity Reaction Status Date / Time aspirin Allergy Severe Anaphylaxsi Unverified 07/22/18 19:45 s morphine Allergy Intermediate Skin Rash Unverified 07/22/18 19:45 NSAIDS (Non-Steroidal Allergy Intermediate Skin Rash Unverified 07/22/18 19:45 Anti-Inflamma Sulfa (Sulfonamide Allergy Intermediate Skin Rash Unverified 07/22/18 19:45 Antibiotics) Quinidine-Quinine Analogues AdvReac Intermediate high fever Unverified 07/22/18 19:45 (Cincho tetanus and diphtheria AdvReac Intermediate Swelling/Ed Unverified 07/22/18 19:45 toxoids rachel [Tetanus&Diphtheria Toxoid] NADIYA Inhibitors AdvReac Mild cough Unverified 07/22/18 19:45 General Stated Complaint: AMS/LOC ELISE: 2 Review of Systems Constitutional Reports fatigue, Denies fever(s), Reports headache(s), Reports lethargy, Denies night sweats, Denies stops breathing during sleep and Reports weakness Eyes Denies blurry vision, Denies change in vision and Denies eye discharge ENT Denies dysphagia, Denies vertigo, Denies dizziness, Reports dry mouth, Reports headache(s) and Denies hoarseness Cardiovascular Denies chest pain, Denies rapid heart rate, Denies pedal edema, Denies edema, Denies irregular heart rhythm, Denies radiating jaw, neck or arm pain, Denies dyspnea and Reports slow heart rate Respiratory Denies dyspnea Gastrointestinal Reports melena, Denies constipation, Denies cramping, Denies dysphagia, Reports heartburn, Denies diarrhea, Denies loose stools, Denies nausea, Denies vomiting and Denies hematemesis Genitourinary Denies dysuria Musculoskeletal Denies myalgias, Denies atrophy and Denies muscle weakness Integumentary/Breasts Denies dry skin and Denies rash Neurologic Denies vertigo, Denies dizziness, Reports headache(s) and Reports weakness Endocrine Reports fatigue Hematologic/Lymphatic Denies easy bleeding and Denies easy bruising [facility] Medical History Open wound of scapular region without complication (Acute) Decubital ulcer (Acute) Pulmonary embolism (Chronic) Hx of CABG (Resolved ~2000) PVD (peripheral vascular disease) (Chronic) Anemia (Chronic) Cholelithiasis without cholecystitis (Chronic) LVH (left ventricular hypertrophy) (Chronic) CAD (coronary artery disease) (Chronic) Asthma (Chronic) Low back pain (Chronic) Peripheral vascular disease (Chronic) CKD (chronic kidney disease), stage III (Chronic) Morbid obesity (Chronic) Anxiety (Chronic) Hypothyroidism (Chronic) Type 2 diabetes mellitus (Chronic) Vitamin B 12 deficiency (Chronic) Polymyalgia rheumatica (Chronic) Venous stasis dermatitis of both lower extremities (Chronic) Compression fracture of L1 lumbar vertebra (Chronic ~07/2017) Falls frequently (Acute) Decreased performance of ADLs (Acute) Acute prerenal azotemia (Resolved) Aortic stenosis, moderate (Chronic ~07/2017) Social History Smoking/Tobacco Use Status: Never Alcohol Intake: current Drug use: Never Do you feel safe at home: Yes Do you feel safe in your relationship?: Yes Additional Social history: Lives alone in her own home since 03/03/2018. Prior to that was living with her daughter from December 2017 until 03/03/2018. She wa s at a detention in [place] prior to moving in with her daughter. She was discharged from [facility] July 2017 to [facility] and was transferred to [place] from there. Lifelong non-smoker. Alcohol is not a problem for her. Exam Const General: cooperative, no acute distress and well developed Nutritional Appearance: overweight Orientation: alert, awake and oriented x3 HENMT Head: normal to inspection and no palpable skull fracture Ears: hearing grossly normal bilaterally General nose exam: external nose normal Face and sinus: normal facial exam Mouth: oral mucosae normal Teeth and gingiva: gingiva abnormal pallid Eyes Conjunctivae: conjunctival abnormality bilaterally conjunctival icterus Pupils: PERRL EOM: EOM intact bilaterally Chest Chest: normal inspection of the chest Cardio Jugular venous pressure: no JVD Palpation: normal PMI Rate: bradycardic Rhythm: regular rhythm Heart Sounds: S1 normal and S2 normal Pulses: normal peripheral pulses GI Inspection: normal to inspection Palpation: soft, no guarding and nontender Skin General skin exam: no rashes or lesions noted Neuro General: alert, awake, oriented x3, tone normal, moves all extremities, no focal motor deficits and CN's II-XI intact bilaterally Extrem General: normal to inspection and full ROM Course Vital Signs Temperature 36.6 C 07/22/18 19:34 Pulse 54 L 07/22/18 19:34 Respiratory Rate 16 07/22/18 19:34 Blood Pressure 143/45 H 07/22/18 19:34 Pulse Oximetry 96 07/22/18 19:34 Temperature 36.6 C 07/22/18 19:34 Temperature Source Temporal Artery Scan 07/22/18 19:34 Pulse 54 L 07/22/18 19:34 Respiratory Rate 19 07/22/18 19:42 Respiratory Effort 07/22/18 19:42 Respiratory Depth Normal 07/22/18 19:42 Blood Pressure 143/45 H 07/22/18 19:34 Pulse Oximetry 96 07/22/18 19:34 Oxygen Delivery Method Nasal Cannula 07/22/18 19:34 Oxygen Flow Rate 2 07/22/18 19:34 Pain Level 7 07/22/18 19:34 Lab/Test Results Lab/Test Results: Laboratory Tests Range/Units 07/22/18 07/22/18 20:10 20:10 WBC (4.4-10.8) k/cumm 8.74 RBC (4.00-5.20) m/cumm 3.28 L Hgb (12.0-15.5) g/dL 8.1 L Hct (36.0-46.0) % 26.8 L MCV (80-95) fL 81.7 MCH (27.0-33.0) pg 24.7 L MCHC (32.0-36.0) g/dL 30.2 L RDW (11.7-14.6) % 19.3 H Plt Count (130-400) x1000/uL 209 MPV (8.0-11.0) fL 9.4 Immature Gran % 0.2 Neutrophils % 60.3 Lymphocytes % 28.0 Monocytes % 8.0 Eosinophils % 3.2 Basophils % 0.3 Absolute Neutrophils (1.2-6.7) k/cumm 5.26 Absolute Lymphocytes (1.2-3.4) k/cumm 2.45 Absolute Monocytes (0.11-0.7) k/cumm 0.70 Absolute Eosinophils (0.0-0.7) k/cumm 0.28 Absolute Basophils (0.0-0.2) k/cumm 0.03 RBC Morphology See below Hypochromasia 1+ Anisocytosis 1+ Sodium (136-145) mmol/L 138 Potassium (3.5-5.1) mmol/L 4.2 Chloride (98-107) mmol/L 101 Carbon Dioxide (21.0-32.0) mmol/L 30.6 Anion Gap (3-11) mmol/L 6.4 BUN (7-18) mg/dL 19 H Creatinine (0.55-1.02) mg/dL 1.18 H Estimated GFR/1.73 m2 (mL/min/1.73m2) 44.30 Glucose (70-100) mg/dL 103 H Calcium (8.5-10.1) mg/dL 8.9 Magnesium (1.8-2.4) mg/dL 2.1 Total Bilirubin (0.2-1.0) mg/dL 0.3 AST (15-37) U/L 18 ALT (12-78) U/L 15 Alkaline Phosphatase (46-116) U/L 85 Troponin I (0.00-0.06) ng/mL 0.02 Total Protein (6.4-8.2) g/dL 7.4 Albumin (3.4-5.0) g/dL 3.0 L TSH (0.358-3.74) uIU/mL 1.79
[2018-07-22 22:21] LABS: Bilirubin Negative (Negative); Blood Negative (Negative); Clarity Clear; Glucose Negative (Negative); Ketones Negative (Negative); Leukocyte Esterase Trace (Negative); Nitrite Negative (Negative); Specific Gravity 1.015 (1.005-1.025); Urobilinogen 0.2 EU/dL (Up TO 0.2)
[2018-07-22 22:31] LABS: Epithelial Cells Rare HPF (Negative); RBC Negative (0-2)
[2018-07-22 22:32] LABS: Other Cells Negative (Negative)
[2018-07-22 22:33] LABS: Bacteria Few HPF (Negative); C & S Indicated? No; Casts Negative LPF (Negative); Crystals Negative HPF (Negative); Mucus Negative (Negative)
--- NOTE | 2018-07-22 23:44 | NUR.NOTE ---
Nursing Note: removed fentanyl pack from pt's right shoulder per provider
[2018-07-23] VITALS (22 sets, daily range): BP systolic 70–165; BP diastolic 38–79; PULSE 44–133; RESP 14–24; TEMP 35.8–36.7; O2SAT 96–98
--- NOTE | 2018-07-23 02:03 | HPE_ITS ---
Date of service: 07/23/18 Time of Service: 01:27 Assessment and Plan (1) Altered mental state: Start date: 07/22/18 Current visit: Yes Status: Acute This is a 78-year-old lady who has had a progressive decline in her health at home and now is having periods of decreased short-term memory and delirium at times with agitation when challenged with her memory loss. Today she was not arousable though her vital signs were completely stable. She was transferred to the ED for evaluation and she has chronic medical problems are stable. She will be observed overnight without telemetry allows and that she is moving toward a DNR/DNI status and if a catastrophic event occurs that minimal interventions will be taken. Her family is agreeable to this. In the morning she need to be evaluated for safe transfer to a wheelchair (a new wheelchair is needed for home) with PT evaluation for home care. A palliative care consultation will also be ordered. Long-term we will continue to work on appropriate CODE STATUS for home care to keep her home for end-of-life care. Qualifiers: Altered mental status type: transient alteration of awareness Qualified Code(s): R40.4 - Transient alteration of awareness (2) Compression fracture of L1 lumbar vertebra: Start date: 07/22/18 Current visit: No Status: Chronic Patient has been on long-term narcotics for muscular skeletal pain and more recently for compression fracture with her fentanyl recently decreased from 25 mcg to 12 mcg/h patches just changed to 12 mcg prior to this event. She also is on tramadol. This is not likely sedation from her narcotics but multifactorial altered mental status from decompensation of her overall health status and multiple chronic diseases with multisystem involvement. Her pain control will be unchanged for now. (3) CKD (chronic kidney disease), stage III: Start date: 07/22/18 Current visit: No Status: Chronic This problem does not appear to be severely worsened but patient does appear dry and does have minimal intake. She will receive gentle IV hydration overnight long-term needs to maintain oral hydration and nutrition. This is variable and challenge at home. She is moving toward comfort care. (4) Anemia: Start date: 07/22/18 Current visit: No Status: Chronic The patient is on iron supplement and is considering Epogen injections at home if she can build up her serum iron levels with oral intake. She does not want aggressive care for this problem. Qualifiers: Anemia type: iron deficiency Iron deficiency anemia type: inadequate dietary iron intake Qualified Code(s): D50.8 - Other iron deficiency anemias (5) Type 2 diabetes mellitus: Start date: 07/22/18 Current visit: No Status: Chronic Recently the patient has been off treatment for this problem with variable diet and weight loss. Due to monitor on diet control only. Qualifiers: Diabetes mellitus residential insulin use: without residential use Diabetes mellitus complication status: with unspecified complications Qualified Code(s): E11.8 - Type 2 diabetes mellitus with unspecified complications History of Present Illness Chief Complaint: Altered mental status with nonresponsiveness at home Narrative: This is a 78-year-old lady who has over the last several months been either hospitalized or in the shelter for respiratory infection with a right lower lobe pneumonia slowly clearing, compression fractures which were exacerbated with falls and general decline in health with inability to take care of herself now at home with 24-hour care rendered by family on shift schedule. Patient has a personality disorder and often puts her family on the spot to perform the impossible. She demands to be home yet wants to have everything done with interventions such as shoulder replacements, aggressive therapy for chronic problems which are not always reversible and remains a full CODE STATUS though she is more appropriately a DNR/DNI with her multisystem failure and irreversible and persistent decompensating diseases. On the day of observation the patient was unresponsive at home and more sedated than usual but has been having periods of altered mental status with confusion at home as to time and purpose at least. This been progressing with her long-term recent illnesses. When she was not responding at home, she had normal vital signs and a pulse oximeter which read 96% on 2 L of O2 at home which is chronic. She has been progressively weakening and unable to ambulate without full assist though on certain days she seems to be stronger and ambulates with a walker by herself or with minimal assist while on other days she is bedridden. Family has attempted to rehabilitate her home without success. After the days that she does more activity the next few days she is down and stays in bed. She is incontinent wea ring adult diapers but urinating through these this is becoming problematic. ED evaluation today revealed nothing new with CKD and associated chronic anemia patient on iron supplement contemplating Epogen injections at home and not requiring transfusion. Blood pressure was stable though she had an irregular slow heart on by systolic with ectopy and negative troponins. Her imaging was unrevealing showing persistent right patchy atelectasis or scarring versus infiltrates which appeared stable and CT scan which was unrevealing for acute changes. Her diabetes has not required treatment recently with patient losing weight and not eating consistently having a very poor diet eating mostly junk f ood with intermittent intake of food and hydration. The patient's review of systems is always markedly positive for somatic complaints especially her musculoskeletal complaints with severe degeneration of her shoulders and back and not having buttock pain from being less active and sitting with no overt previous ulcers but being a risk for this. She is currently undergoing on a decrease fentanyl dose from 25 to 12 mcg recently with tramadol as needed. The ED report stated that she was on increased dose of 25 mcg which is erroneous. Urinary incontinence may be increasing this potential problem. She has irritable bowel syndrome and often complains of cramping in her abdomen. She is intermittently depressed increases her somatic complaints. She has passive-aggressive personality disorder and often increases stress in her family who are her caregivers. Her daughter is especially well and will do this psychological affect and behavior. Review of Systems Review of Systems 13 point review of systems as per HPI, otherwise unrevealing or stable. [facility] Medical History Open wound of scapular region without complication (Acute) Decubital ulcer (Acute) Pulmonary embolism (Chronic) Hx of CABG (Resolved ~2000) PVD (peripheral vascular disease) (Chronic) Anemia (Chronic) Cholelithiasis without cholecystitis (Chronic) LVH (left ventricular hypertrophy) (Chronic) CAD (coronary artery disease) (Chronic) Asthma (Chronic) Low back pain (Chronic) Peripheral vascular disease (Chronic) CKD (chronic kidney disease), stage III (Chronic) Morbid obesity (Chronic) Anxiety (Chronic) Hypothyroidism (Chronic) Type 2 diabetes mellitus (Chronic) Vitamin B 12 deficiency (Chronic) Polymyalgia rheumatica (Chronic) Venous stasis dermatitis of both lower extremities (Chronic) Compression fracture of L1 lumbar vertebra (Chronic ~07/2017) Falls frequently (Acute) Decreased performance of ADLs (Acute) Acute prerenal azotemia (Resolved) Aortic stenosis, moderate (Chronic ~07/2017) Social History Smoking/Tobacco Use Status: Never Alcohol Intake: current Drug use: Never Do you feel safe at home: Yes Do you feel safe in your relationship?: Yes Additional Social history: Lives alone in her own home since 03/03/2018. Prior to that was living with her daughter from December 2017 until 03/03/2018. She was at a shelter in [place] prior to moving in with her daughter. She was discharged from [facility] July 2017 to [facility] and was transferred to [place] from there. Lifelong non-smoker. Alcohol is not a problem for her. Meds Home Medications Medication Instructions Recorded Confirmed Type cyanocobalamin (vitamin B-12) 1,000 mcg PO DAILY 07/05/12 07/22/18 History [Vitamin B-12] Brilinta 90 mg PO BID 03/11/13 07/22/18 History atorvastatin [Lipitor] 20 mg PO DAILY AM 03/11/13 07/22/18 History amlodipine 5 mg PO DAILY 06/27/14 07/22/18 History nitroglycerin [Nitrostat] 1 tab SUBLINGUAL PRN PRN 06/27/14 07/22/18 History omeprazole 40 mg PO BID@0730,199904/01/16 07/22/18 History sertraline 200 mg PO DAILY 05/17/16 07/22/18 History levalbuterol tartrate [Xopenex HFA] 1 - 2 puff INHALATION Q4H PRN PRN 05/18/16 07/22/18 Rx inh cholecalciferol (vitamin D3) 2,000 units PO DAILY 10/08/16 07/22/18 History coenzyme [id number] [Co Q-10 1 ea PO DAILY 05/24/17 07/22/18 History (with Vit E)] levothyroxine [Synthroid] 150 mcg PO DAILY AM 10/09/17 07/22/18 History spironolactone 25 mg PO DAILY AM 10/09/17 07/22/18 History dicyclomine [Bentyl] 20 mg Q6H PRN 03/05/18 07/22/18 History fluticasone propion-salmeterol 1 puff INHALATION Q12H 03/05/18 07/22/18 History [Advair Diskus] furosemide 40 mg PO DAILY 03/05/18 07/22/18 History lidocaine 1 patch TOPICAL DAILY PRN 03/05/18 07/22/18 History pramipexole [Mirapex] 1 mg PO BID 03/05/18 07/22/18 History sucralfate [Carafate] 1 g PO DIRECTED 03/05/18 07/22/18 History Bystolic 10 mg PO DAILY #0 tab 03/08/18 07/22/18 Rx fentanyl 25 mcg TRANSDERMAL Q72H #2 ea 03/08/18 07/22/18 Rx gabapentin 200 mg PO TID #0 cap 03/08/18 07/22/18 Rx magnesium oxide 400 mg PO DAILY #60 tab 03/08/18 07/22/18 Rx polyethylene glycol 3350 17 g PO DAILY #0 ea 03/08/18 07/22/18 Rx tramadol 50 mg PO TID PRN #9 tab 03/08/18 07/22/18 Rx ferrous gluconate 324 mg PO BID 07/22/18 07/22/18 History Allergies Allergy/AdvReac Type Severity Reaction Status Date / Time aspirin Allergy Severe Anaphylaxsi Unverified 07/22/18 19:45 s morphine Allergy Intermediate Skin Rash Unverified 07/22/18 19:45 NSAIDS (Non-Steroidal Allergy Intermediate Skin Rash Unverified 07/22/18 19:45 Anti-Inflamma Sulfa (Sulfonamide Allergy Intermediate Skin Rash Unverified 07/22/18 19:45 Antibiotics) Quinidine-Quinine Analogues AdvReac Intermediate high fever Unverified 07/22/18 19:45 (Cincho tetanus and diphtheria AdvReac Intermediate Swelling/Ed Unverified 07/22/18 19:45 toxoids rachel [Tetanus&Diphtheria Toxoid] NADIYA Inhibitors AdvReac Mild cough Unverified 07/22/18 19:45 Exam Narrative Exam Narrative: General: Patient is pale, flattened affect though occasionally smiling during conversation and appears to be oriented at least to person and place. He is in moderate distress with her pain in the shoulders and buttock areas. She is moderately obese though she has lost much weight recently. HEENT: Normocephalic with nonpitting puffiness over her face, eyes with pupils equal and reactive to light symmetrically and extraocular movement intact. Scl era anicteric. Oropharynx with dry oral mucosa and poorly fitting dentures which are loose. Neck: Supple without JVD. Lungs: Bronchovesicular breath sounds diffusely with fair aeration no focalizing rales or rhonchi the patient examined supine. Heart: Irregular rhythm with bradycardic rate and 4/6 pansystolic murmur. Breasts: Not examined. Back: Kyphotic with tenderness over the thoracic spine and upper lumbar spine. No CVA tenderness. Abdomen: Obese, soft palpation and no focalizing tenderness, guarding or rebound. Bowel sounds are positive but hypoactive in all quadrants. No palpable thyromegaly or masses. Genitalia and rectal exam: Deferred. Patient is wearing an adult diaper. Extremities: Diffuse osteophytic changes with decreased range of motion and bony changes but no acute joint swelling. Shoulders have marked decreased range of motion with tenderness to palpation. There is no clubbing or cyanosis and there is lower extremity nonpitting edema. Skin: Pale, warm and dry with no appreciable rashes. She does have history of chronic rosacea over her face. Nurses will check her sacrum for skin breakdown the patient complaining of discomfort over her buttocks with sitting. Neuro: No focalizing motor deficits but patient is generally weak with decreased motor strength 4/5 diffusely. Cranial nerves II through XII appear to be grossly intact. Psych: Patient has variable affect mostly flattened, verbal short-term memory with slow but not the speech at times smiling and making coy comments to her daughter trying to evoke guilt. This is been her personality with a probable personality disorder as as long as I have known her which is greater than 15 years. Results Imaging Imaging Studies: EXAM: XR Chest, 2 Views EXAM DATE/TIME: 07/22/2018 7:42 PM CLINICAL HISTORY: 78 years old, female; Signs and symptoms; Other: Weakness, lethargy and confusion; Prior surgery; Surgery date: 6+ months TECHNIQUE: Imaging protocol: XR of the chest, 2 views. COMPARISON: SC CHEST ONE VIEW IN RAD DEPT 10/09/2017 11:28 PM FINDINGS: Lungs: Mild pulmonary vascular congestion. Mild thickening of the pulmonary fissures. Possible patchy densities in the lateral right lower lobe. Differential diagnosis includes atelectasis and pneumonia. Other pulmonary lesions are not excluded. Pleural space: Septal line thickening within the left mid and lower lung zones. No pleural effusion or pneumothorax. Heart/Mediastinum: Status post CABG. Borderline cardiomegaly. Bones/joints: Unremarkable. IMPRESSION: 1. Status post CABG with findings suspicious for mild CHF. 2. Possible patchy densities in the lateral right lower lobe. Differential diagnosis includes atelectasis and pneumonia. Other pulmonary lesions are not excluded. Dictated and Authenticated by: Evans Torres MD. EXAM: CT Head Without Contrast EXAM DATE/TIME: 07/22/2018 7:42 PM CLINICAL HISTORY: 78 years old, female; Signs and symptoms; Altered mental status/memory loss and other: General weakness, lethargy and confusion; Confusion or disorientation TECHNIQUE: Imaging protocol: Axial computed tomography images of the head without contrast. Coronal and sagittal reformatted images were created and reviewed. Radiation optimization: All CT scans at this facility use at least one of these dose optimization techniques: automated exposure control; mA and/or kV adjustment per patient size (includes targeted exams where dose is matched to clinical indication); or iterative reconstruction. COMPARISON: CT HEAD AND CSPINE W/O CONTRAST 10/09/2017 11:33 PM FINDINGS: Brain: Global cerebral atrophy is consistent with patient's age. Decreased attenuation within the white matter tracts of both cerebral hemispheres is nonspecific but typically seen with small vessel disease/chronic white matter ischemic changes of aging. No CT scan evidence of acute stroke. No intracranial hemorrhage or mass effect. Physiologic calcification of the basal ganglia. Ventricles: Unremarkable. No ventriculomegaly. Bones/joints: Unremarkable. No acute fracture. Sinuses: Minimal mucosal thickening of the maxillary sinuses. Mastoid air cells: Visualized mastoid air cells are well aerated. No mastoid effusion. Soft tissues: Unremarkable. IMPRESSION: No acute abnormality. Dictated and Authenticated by: Evans Torres MD. Labs : 07/22/18 20:10 07/22/18 20:10 Laboratory Results - last 24 hr 07/22/18 07/22/18 07/22/18 20:10 20:10 22:00 WBC 8.74 RBC 3.28 L Hgb 8.1 L Hct 26.8 L MCV 81.7 MCH 24.7 L MCHC 30.2 L RDW 19.3 H Plt Count 209 MPV 9.4 Immature Gran % 0.2 Neutrophils % 60.3 Lymphocytes % 28.0 Monocytes % 8.0 Eosinophils % 3.2 Basophils % 0.3 Absolute Neutrophils 5.26 Absolute Lymphocytes 2.45 Absolute Monocytes 0.70 Absolute Eosinophils 0.28 Absolute Basophils 0.03 RBC Morphology See below Hypochromasia 1+ Anisocytosis 1+ Sodium 138 Potassium 4.2 Chloride 101 Carbon Dioxide 30.6 Anion Gap 6.4 BUN 19 H Creatinine 1.18 H Estimated GFR/1.73 m2 44.30 Glucose 103 H Calcium 8.9 Magnesium 2.1 Total Bilirubin 0.3 AST 18 ALT 15 Alkaline Phosphatase 85 Troponin I 0.02 Total Protein 7.4 Albumin 3.0 L TSH 1.79 Urine Color Yellow Urine Clarity Clear Urine pH 6.0 Ur Specific [place] 1.015 Urine Protein Negative Urine Ketones Negative Urine Blood Negative Urine Nitrite Negative Urine Bilirubin Negative Urine Urobilinogen 0.2 Ur Leukocyte Esterase Trace H Urine RBC Negative Urine WBC 3-5 Ur Epithelial Cells Rare Urine Crystals Negative Urine Bacteria Few Urine Casts Negative Urine Mucus Negative Urine Other Negative Ur Culture Indicated? No Urine Glucose Negative Last Vital Signs Temp 36.6 C 07/22/18 19:34 Pulse 94 H 07/23/18 00:17 Resp 20 07/23/18 00:20 BP 96/43 L 07/23/18 00:17 Pulse Ox 96 07/22/18 23:02
[2018-07-23] MEDS: traMADol 50 MG TAB PO ×3 (03:05→13:02)
[2018-07-23] MEDS: Heparin 5,000 UNITS/ML VIAL 5000 UNITS SC ×2 (03:06→10:53)
[2018-07-23] MEDS: Normal Saline 1,000 ML 80 ML IV (03:06)
[2018-07-23] MEDS: Levothyroxine 150 MCG TAB PO (06:30)
[2018-07-23] MEDS: Spironolactone 25 MG TAB PO (06:30)
[2018-07-23] MEDS: Acetaminophen 500 MG TAB 1000 MG PO (06:57)
[2018-07-23] MEDS: Atorvastatin 40 MG TAB 20 MG PO (06:58)
[2018-07-23 07:01] LABS: Platelet Count 193 x1000/uL (130-400)
[2018-07-23 07:41] LABS: ALT 13 U/L (12-78); AST 18 U/L (15-37); Albumin 2.8 g/dL (3.4-5.0); Alkaline Phosphatase 78 U/L (46-116); Anion Gap 6.8 mmol/L (3-11); BUN 18 mg/dL (7-18); Bilirubin, Total 0.3 mg/dL (0.2-1.0); CO2 30.2 mmol/L (21.0-32.0); CREATININE 1.09 mg/dL (0.55-1.02); Chloride 103 mmol/L (98-107); Estimated GFR 48.55 (mL/min/1.73m2); Glucose 90 mg/dL (70-100); Potassium 3.7 mmol/L (3.5-5.1); Sodium 140 mmol/L (136-145); Total Protein 7.1 g/dL (6.4-8.2)
--- NOTE | 2018-07-23 07:56 | PDOC.CMPRO ---
Care Management Progress Note 07/23-Dr. Graham requested Palliative Care Referral for end of life with multi-system failure. Patient would like to stay home with avoidance of hospital care. Referral faxed to Palliative Care this am.
[2018-07-23] MEDS: Lidocaine 5% Patch 1 PATCH TP (08:39)
[2018-07-23] MEDS: Pramipexole 0.5 MG TAB 1 MG PO (08:40)
[2018-07-23] MEDS: amLODIPine 5 MG TAB PO (08:40)
[2018-07-23] MEDS: Ticagrelor 90 MG TAB PO (08:40)
[2018-07-23] MEDS: Cholecalciferol (Vitamin D3) 1,000 UNIT TAB 2000 UNITS PO (08:40)
[2018-07-23] MEDS: Ferrous Gluconate 324 MG TAB PO (08:40)
[2018-07-23] MEDS: Gabapentin 100 MG CAP 200 MG PO ×2 (08:40→13:47)
[2018-07-23] MEDS: Furosemide 40 MG TAB PO (08:40)
[2018-07-23] MEDS: Sucralfate 1 GM TAB PO ×2 (08:41→11:38)
[2018-07-23] MEDS: Omeprazole 20 MG CAPCR 40 MG PO (08:41)
[2018-07-23] MEDS: SERTRALINE 100 MG TAB 200 MG PO (08:58)
--- NOTE | 2018-07-23 09:29 | PDOC.CMIN ---
- If Service Date Differs Date of service: 07/23/18 Time of Service: 09:29 Care Management Initial Assess REASON FOR HOSPITALIZATION:: altered mental status PAST MEDICAL HISTORY/PAST SURGICAL HISTORY:: Medical History : Open wound of scapular region without complication, Decubital ulcer,. Pulmonary embolism, Hx of CABG, PVD (peripheral vascular disease),. Anemia, Cholelithiasis without cholecystitis,LVH (left ventricular hypertrophy). CAD (coronary artery disease), Asthma, Low back pain, Peripheral vascular disease, CKD (chronic kidney disease), stage III , Morbid obesity ,. Anxiety, Hypothyroidism, Type 2 diabetes mellitus, Vitamin B 12 deficiency. Polymyalgia rheumatica, Venous stasis dermatitis of both lower extremities. Compression fracture of L1 lumbar vertebra, Falls frequently, Decreased performance of ADLs, Acute prerenal azotemia, Aortic stenosis, moderate PREVIOUS FUNCTIONAL STATUS/SOCIAL/FAMILY SUPPORTS:: Lucy lives alone in a one level single family home. She has extensive support from [facility] (highest needs-35 hours per week) as well as from her family. There is a relative or caregiver in the home with her almost 24 hours a day. Lucy needs help with ADLs, although she is able to feed herself, do puzzles etc. CURRENT FUNCTIONAL STATUS:: Lucy was out of her room for testing when CM came to visit. Her daughter and granddaughter were present and answered questions and provided information. They expressed a desire to get a wheelchair for Lucy but as this is not recommended by PT, a referral was not made. CM reviewed Medicare/Medicaid benefit guidelines with family and the fact that Lucy does not appear to qualify. ADVANCE DIRECTIVES:: None on file Has patient been provided with information about the portal?: No Did the patient sign up for the portal?: No CODE STATUS:: Full Code INSURANCE COVERAGE / FINANCIAL ISSUES:: Medicare. Medicaid CURRENT HOME/COMMUNITY SERVICES/EQUIPMENT:: Lucy currently receives services through [facility], highest needs. She also has Home health nursing and uses a lift recliner, walker, commode and shower chair. PRIMARY CARE PHYSICIAN:: Perry Graham POTENTIAL DISCHARGE NEEDS:: Home health nursing, PT and OT. PATIENT/FAMILY EDUCATION NEEDS:: Discharge plan, limitations, follow up plan of care, Ask Me [employer]. ANTICIPATED BARRIERS TO DISCHARGE:: none identified TRANSPORTATION:: Via private automobile with family. PLAN:: Lucy will be discharged home with new Home Health services for OT, PT and snf. She will have a resumption of [facility], highest needs. Lucy will follw up with her PCP and discharge plan of care. A referral has been sent for a palliative care consult at home.
--- NOTE | 2018-07-23 09:43 | INITIAL_ITS ---
- If Service Date Differs Date of service: 07/23/18 Time of Service: 09:29 Care Management Initial Assess REASON FOR HOSPITALIZATION:: altered mental status PAST MEDICAL HISTORY/PAST SURGICAL HISTORY:: Medical History : Open wound of scapular region without complication, Decubital ulcer,. Pulmonary embolism, Hx of CABG, PVD (peripheral vascular disease),. Anemia, Cholelithiasis without cholecystitis,LVH (left ventricular hypertrophy). CAD (coronary artery disease), Asthma, Low back pain, Peripheral vascular disease, CKD (chronic kidney disease), stage III , Morbid obesity ,. Anxiety, Hypothyroidism, Type 2 diabetes mellitus, Vitamin B 12 deficiency. Polymyalgia rheumatica, Venous stasis dermatitis of both lower extremities. Compression fracture of L1 lumbar vertebra, Falls frequently, Decreased performance of ADLs, Acute prerenal azotemia, Aortic stenosis, moderate PREVIOUS FUNCTIONAL STATUS/SOCIAL/FAMILY SUPPORTS:: Lucy lives alone in a one level single family home. She has extensive support from [facility] (highest needs-35 hours per week) as well as from her family. There is a relative or caregiver in the home with her almost 24 hours a day. Lucy needs help with ADLs, although she is able to feed herself, do puzzles etc. CURRENT FUNCTIONAL STATUS:: Lucy was out of her room for testing when CM came to visit. Her daughter and granddaughter were present and answered questions and provided information. They expressed a desire to get a wheelchair for Lucy but as this is not recommended by PT, a referral was not made. CM reviewed Medicare/Medicaid benefit guidelines with family and the fact that Lucy does not appear to qualify. ADVANCE DIRECTIVES:: None on file Has patient been provided with information about the portal?: No Did the patient sign up for the portal?: No CODE STATUS:: Full Code INSURANCE COVERAGE / FINANCIAL ISSUES:: Medicare. Medicaid CURRENT HOME/COMMUNITY SERVICES/EQUIPMENT:: Lucy currently receives services through [facility], highest needs. She also has Home health nursing and uses a lift recliner, walker, commode and shower chair. PRIMARY CARE PHYSICIAN:: Perry Graham POTENTIAL DISCHARGE NEEDS:: Home health nursing, PT and OT. PATIENT/FAMILY EDUCATION NEEDS:: Discharge plan, limitations, follow up plan of care, Ask Me Three. ANTICIPATED BARRIERS TO DISCHARGE:: none identified TRANSPORTATION:: Via private automobile with family. PLAN:: Lucy will be discharged home with new Home Health services for OT, PT and custodial. She will have a resumption of [facility], highest needs. Lucy will follw up with her PCP and discharge plan of care. A referral has been sent for a palliative care consult at home.
[2018-07-23] MEDS: Budesonide/Formoterol 80/4.5 6.9 GM 60 PUFF INH IH (09:49)
--- NOTE | 2018-07-23 12:23 | PT.INIE ---
Date of service: 07/23/18 Time of Service: 10:01 PT Notes Inpatient Physical Therapy Evaluation Date: 07/23/2018 Referring Doctor: Perry Graham MD PT Orders: PT CONSULT: Evaluate for appropriate wheelchair replacement for home use with appropriate transfer advise if indicated and assisted ambulation with walker using gait belt Precautions: Fall. Contact precautions. Patient Profile/Admitting Diagnosis: Patient is a 78-year-old female who presented to the ED on 07/22/2018 due to anemia, lethargy, and an altered mental status with unresponsive episode witnessed by family member. A palliative care referral was made as well for end-of-life care due to multi system failure. Referral for physical therapy services was made in order to assess for mobility equipment needs to maximize safety and reduce fall risk at home. PMHX: Medical History Open wound of scapular region without complication (Acute) Decubital ulcer (Acute) Pulmonary embolism (Chronic) Hx of CABG (Resolved ~2000) PVD (peripheral vascular disease) (Chronic) Anemia (Chronic) Cholelithiasis without cholecystitis (Chronic) LVH (left ventricular hypertrophy) (Chronic) CAD (coronary artery disease) (Chronic) Asthma (Chronic) Low back pain (Chronic) Peripheral vascular disease (Chronic) CKD (chronic kidney disease), stage III (Chronic) Morbid obesity (Chronic) Anxiety (Chronic) Hypothyroidism (Chronic) Type 2 diabetes mellitus (Chronic) Vitamin B 12 deficiency (Chronic) Polymyalgia rheumatica (Chronic) Venous stasis dermatitis of both lower extremities (Chronic) Compression fracture of L1 lumbar vertebra (Chronic ~07/2017) Falls frequently (Acute) Decreased performance of ADLs (Acute) Acute prerenal azotemia (Resolved) Aortic stenosis, moderate (Chronic ~07/2017) Social History/Home Situation: Patient lives in a 1 floor house with a reymundo to enter with rails on both sides. She has 24/7 care procvided by [facility] members [facility] on [facility] shift schedule. Current Functional Limitations: Need for assistance with all mobility, transfer, and ambulation task performance using an assistive ambulatory device Equipment Owned/DME: F[employer], [employer] Subjective: PT agreeable to a PT consult. She reports at least 9/10 pain on the right shoulder and has been trying throughout PT session. She said that she may have hurt it she fell at home. Patient also had a hard time moving doing a bowel movement as she states that she has not defecated since 2 days ago. Objective: General Observation: Patient seen resting on bedside chair. Oxygen on 2 L/min via nasal cannula. Contusion noted on proximal posterior right arm; right arm pressed against upper abdominal area with patient not wanting to move it. Mental Status: Alert and oriented as to person and purpose Pain: Patient reports at least 9/10 pain on right shoulder aggravated by movement ROM: Right Upper Extremity: Shoulder range of motion not tested due to pain. Elbow flexion WFL. Wrist flexion WFL. Functional opening and closing of hand WFL. Left Upper Extremity: Shoulder Flexion WFL. Shoulder abduction WFL. Elbow flexion WFL. Wrist flexion WFL. Functional opening and closing of hand WFL. Right Lower Extremity: Hip flexion WFL. Hip abduction WFL. Knee flexion WFL. Ankle dorsiflexion WFL. Ankle plantarflexion WFL. Left Lower Extremity: Hip flexion WFL. Hip abduction WFL. Knee flexion WFL. Ankle dorsiflexion WFL. Ankle plantarflexion WFL. Strength: Right Upper Extremity: Shoulder flexors 3-/5. Shoulder abductors 3-/5. Elbow flexors 4-/5. Elbow extensors 4-/5. [employer] Judge strong. Left Upper Extremity: Shoulder flexors 4-/5. Shoulder abductors 4-/5. Elbow flexors 4-/5. Elbow extensors 4-/5. Youth [employer] Judge strong. Right Lower Extremity: Hip flexors 4-/5. Hip abductors 4-/5. Knee flexors 4-/5. Knee extensors 4-/5. Ankle dorsiflexors 4-/5. Ankle plantarflexors 5/5. Left Lower Extremity:Hip flexors 4-/5. Hip abductors 4-/5. Knee flexors 4-/5. Knee extensors 4-/5. Ankle dorsiflexors 4-/5. Ankle plantarflexors 5/5. Bed Mobility/Transfers: Supine to sit minimal assist Sit to supine minimal assist Sit to stand minimal assist Stand to sit minimal assist Bed to chair minimal assist Chair to bed minimal assist Gait: Patient was able to tolerate in room ambulation for 20 feet +1 turn +20 feet plus another turn and 2 steps backwards to sit on chair, cues needed for AD management and placement. Patient is unable to bear weight on right upper extremity and so a shaka walker was assessed to the chair. Patient required minimal verbal cues to manage hemiwalker and contact-guard assist for safety. Balance: Static Sitting: Good Dynamic Sitting: Good Static Standing: Fair Dynamic Standing: Fair Special Tests: Mobility Limitations Standardized Measure [facility] AM-PAC 6 clicks Basic Mobility Inpatient Short Form: Raw Score: 18 CMS Score: 47% deficit Informed Consent/Education: Patient instructed in purpose of PT consult and plan of care. She was instructed on safe management of heavy left upper extremity with plan on a sling to minimize pain. Assessment: Patient is a 78-year-old female who presented to the ED on 07/22/2018 due to anemia, lethargy, and an altered mental status with unresponsive episode witnessed by family member. Patient presents with clinical signs and symptoms consistent with current/admitting diagnoses that have resulted to mobility limitations, gait instability, generalized weakness, and impairment of motor control as demonstrated by the following impairment level findings: 1. Decreased strength to B LE major muscle groups 2. Impaired sitting/standing balance 3. Impaired activity tolerance 4. Limitation of joint range of motion in right shoulder due to pain complaint Impairments are contributing to the following functional limitations: 1. Dependent bed mobility skills 2. Increased dependence with transfers 3. Inability to safely ambulate without assistive device and physical assistance 4. Increase completion time for mobility ADL performance 5. Increased fall risk 6. Inability to negotiate steps alone safely Patient is assessed as a complexity based on the following: History: Patient is a 78-year-old female who presented to the ED on 07/22/2018 due to anemia, lethargy, and an altered mental status. Patient has 24-hour care by family members on a shift schedule. Examination: Underlying impairments and functional limitations as noted above Presentation:Evolving Decision Makin moderate complexity DISCHARGE RECOMMENDATIONS: At time of evaluation patient was able to manage use of shaak-walker with minimal verbal cues and contact-guard assist of this PT. She may require use of wheelchair for all outdoor and long distance ambulation. She will also require use of a right arm sling in order to minimize pain complaint on right shoulder and right arm. Patient will highly benefit from home health PT services in order to continue to assess mobility level, reduce fall risk, and instruct/train caregivers on safe strategies at home. TREATMENT CODE/TIME: 42072 for 30 minutes, [id number] 24 minutes [id number] AM. Thank you very much for this referral. Jacki Gonsalves PT, DPT, CLT [facility]
--- NOTE | 2018-07-23 12:28 | IN_ITS ---
Date of service: 07/23/18 Time of Service: 10:01 PT Notes Inpatient Physical Therapy Evaluation Date: 07/23/2018 Referring Doctor: Perry Graham MD PT Orders: PT CONSULT: Evaluate for appropriate wheelchair replacement for home use with appropriate transfer advise if indicated and assisted ambulation with walker using gait belt Precautions: Fall. Contact precautions. Patient Profile/Admitting Diagnosis: Patient is a 78-year-old female who presented to the ED on 07/22/2018 due to anemia, lethargy, and an altered mental status with unresponsive episode witnessed by family member. A palliative care referral was made as well for end-of-life care due to multi system failure. Referral for physical therapy services was made in order to assess for mobility equipment needs to maximize safety and reduce fall risk at home. PMHX: Medical History Open wound of scapular region without complication (Acute) Decubital ulcer (Acute) Pulmonary embolism (Chronic) Hx of CABG (Resolved ~2000) PVD (peripheral vascular disease) (Chronic) Anemia (Chronic) Cholelithiasis without cholecystitis (Chronic) LVH (left ventricular hypertrophy) (Chronic) CAD (coronary artery disease) (Chronic) Asthma (Chronic) Low back pain (Chronic) Peripheral vascular disease (Chronic) CKD (chronic kidney disease), stage III (Chronic) Morbid obesity (Chronic) Anxiety (Chronic) Hypothyroidism (Chronic) Type 2 diabetes mellitus (Chronic) Vitamin B 12 deficiency (Chronic) Polymyalgia rheumatica (Chronic) Venous stasis dermatitis of both lower extremities (Chronic) Compression fracture of L1 lumbar vertebra (Chronic ~07/2017) Falls frequently (Acute) Decreased performance of ADLs (Acute) Acute prerenal azotemia (Resolved) Aortic stenosis, moderate (Chronic ~07/2017) Social History/Home Situation: Patient lives in a 1 floor house with a reymundo to enter with rails on both sides. She has 24/7 care procvided by family members on a [facility] on the shift schedule. Current Functional Limitations: Need for assistance with all mobility, transfer, and ambulation task performance using an assistive ambulatory device Equipment Owned/DME: FWW, CHASIDY Subjective: PT agreeable to a PT consult. She reports at least 9/10 pain on the right shoulder and has been trying throughout PT session. She said that she may have hurt it she fell at home. Patient also had a hard time moving doing a bowel movement as she states that she has not defecated since 2 days ago. Objective: General Observation: Patient seen resting on bedside chair. Oxygen on 2 L/min via nasal cannula. Contusion noted on proximal posterior right arm; right arm pressed against upper abdominal area with patient not wanting to move it. Mental Status: Alert and oriented as to person and purpose Pain: Patient reports at least 9/10 pain on right shoulder aggravated by movement ROM: Right Upper Extremity: Shoulder range of motion not tested due to pain. Elbow flexion WFL. Wrist flexion WFL. Functional opening and closing of hand WFL. Left Upper Extremity: Shoulder Flexion WFL. Shoulder abduction WFL. Elbow flexion WFL. Wrist flexion WFL. Functional opening and closing of hand WFL. Right Lower Extremity: Hip flexion WFL. Hip abduction WFL. Knee flexion WFL. Ankle dorsiflexion WFL. Ankle plantarflexion WFL. Left Lower Extremity: Hip flexion WFL. Hip abduction WFL. Knee flexion WFL. Ankle dorsiflexion WFL. Ankle plantarflexion WFL. Strength: Right Upper Extremity: Shoulder flexors 3-/5. Shoulder abductors 3-/5. Elbow flexors 4-/5. Elbow extensors 4-/5. [employer] In[employer] strong. Left Upper Extremity: Shoulder flexors 4-/5. Shoulder abductors 4-/5. Elbow flexors 4-/5. Elbow extensors 4-/5. [employer] Instructor strong. Right Lower Extremity: Hip flexors 4-/5. Hip abductors 4-/5. Knee flexors 4-/5. Knee extensors 4-/5. Ankle dorsiflexors 4-/5. Ankle plantarflexors 5/5. Left Lower Extremity:Hip flexors 4-/5. Hip abductors 4-/5. Knee flexors 4-/5. Knee extensors 4-/5. Ankle dorsiflexors 4-/5. Ankle plantarflexors 5/5. Bed Mobility/Transfers: Supine to sit minimal assist Sit to supine minimal assist Sit to stand minimal assist Stand to sit minimal assist Bed to chair minimal assist Chair to bed minimal assist Gait: Patient was able to tolerate in room ambulation for 20 feet +1 turn +20 feet plus another turn and 2 steps backwards to sit on chair, cues needed for AD management and placement. Patient is unable to bear weight on right upper extremity and so a shaka walker was assessed to the chair. Patient required minimal verbal cues to manage hemiwalker and contact-guard assist for safety. Balance: Static Sitting: Good Dynamic Sitting: Good Static Standing: Fair Dynamic Standing: Fair Special Tests: Mobility Limitations Standardized Measure [facility] AM-PAC 6 clicks Basic Mobility Inpatient Short Form: Raw Score: 18 CMS Score: 47% deficit Informed Consent/Education: Patient instructed in purpose of PT consult and plan of care. She was instructed on safe management of heavy left upper extremity with plan on a sling to minimize pain. Assessment: Patient is a 78-year-old female who presented to the ED on 07/22/2018 due to anemia, lethargy, and an altered mental status with unresponsive episode witnessed by family member. Patient presents with clinical signs and symptoms consistent with current/admitting diagnoses that have resulted to mobility limitations, gait instability, generalized weakness, and impairment of motor control as demonstrated by the following impairment level findings: 1. Decreased strength to B LE major muscle groups 2. Impaired sitting/standing balance 3. Impaired activity tolerance 4. Limitation of joint range of motion in right shoulder due to pain complaint Impairments are contributing to the following functional limitations: 1. Dependent bed mobility skills 2. Increased dependence with transfers 3. Inability to safely ambulate without assistive device and physical assistance 4. Increase completion time for mobility ADL performance 5. Increased fall risk 6. Inability to negotiate steps alone safely Patient is assessed as a complexity based on the following: History: Patient is a 78-year-old female who presented to the ED on 07/22/2018 due to anemia, lethargy, and an altered mental status. Patient has 24-hour care by family members on a shift schedule. Examination: Underlying impairments and functional limitations as noted above Presentation:Evolving Decision Makin moderate complexity DISCHARGE RECOMMENDATIONS: At time of evaluation patient was able to manage use of shaka-walker with minimal verbal cues and contact-guard assist of this PT. She may require use of wheelchair for all outdoor and long distance ambulation. She will also require use of a right arm sling in order to minimize pain complaint on right shoulder and right arm. Patient will highly benefit from home health PT services in order to continue to assess mobility level, reduce fall risk, and instruct/train caregivers on safe strategies at home. TREATMENT CODE/TIME: 93984 for 30 minutes, [id number] 24 minutes [id number] AM. Thank you very much for this referral. Jacki Gonsalves PT, DPT, CLT [facility]
--- NOTE | 2018-07-23 12:30 | DI.RAD_ITS ---
SYMPTOMS/DIAGNOSIS: RT SHOULDER PAIN, POST FALL RIGHT SHOULDER: There is suboptimal positioning on the AP views. There is no evidence of fracture or dislocation. Degenerative changes are noted of the AC joint and glenohumeral joint. IMPRESSION: Limited exam due to suboptimal positioning. No acute abnormality is seen.
--- NOTE | 2018-07-23 13:38 | W.PM.DS.N ---
Date of service: 07/23/18 Time of Service: 13:38 DS: Diagnosis Discharge Diagnosis (1) Altered mental state: Status: Resolved (2) Compression fracture of L1 lumbar vertebra: Status: Chronic (3) CKD (chronic kidney disease), stage III: Status: Chronic (4) Anemia: Status: Chronic (5) Type 2 diabetes mellitus: Status: Chronic (6) Right shoulder pain: Status: Acute (7) Chronic pain: Status: Chronic (8) CHF (congestive heart failure): Status: Chronic (9) Hx of CABG: Status: Resolved (10) Pulmonary embolism: Status: Chronic (11) PVD (peripheral vascular disease): Status: Chronic (12) Aortic stenosis, moderate: Status: Chronic (13) Chronic respiratory failure with hypoxia: Status: Acute (14) Ambulatory dysfunction: Status: Acute (15) Opioid dependence: Status: Acute Discharge Plan Disposition Patient Disposition: HOME W/HOME HEALTH SERVICE Condition: Good Discharge Details Reason For Visit: ALTERED MENTAL STATUS Admit Date/Time: 07/23/18 01:00 Admit Provider: Perry Graham Attending Provider: Perry Graham Primary Care Provider: Perry Graham Hospital Course Hospital Course: Ms Vinson is a 78 year old female with a number of chronic medical conditions, including chornic hypoxic respiratory failure on 2L of O2, Aortic stenosis, chronic diastolic CHF, pulmonary hypertension, CAD s/p CABG, CKD3, Type 2 diabetes mellitus, observed on hospitalist service at [facility] on 07/23/18 for altered mental status (difficulty being awoken from sleep). The patient's mental status was at near baseline by the time she was evaluated by the admitting attending. The patient's blood pressures here were highly variable, sometimes noted to be in 70's systolic (not manually). It would be good to monitor the patient's blood pressures at home with home health to ensure that these episodes of hypotension do not happen at home. The patient's BP on discharge is stable (SBP in 130's). She does appear to be slightly fluid overloaded and was gently diuresed prior to discharge. One of the things that could explain her altered mental status is possibly the pain medications causing CO2 narcosis. We do not have proof of this while I am writing this discharge summary - ABG, when initially ordered, was refused, but is being reattempted now. This is certainly something to consider if this recurs. Per my conversation with patient, her family, as well as patient's PCP, Dr Graham, the patient is to return home today with palliative care consult to occur (the family cannot wait for this to happen on inpatient basis, so outpatient referral is being sent). No changes are being made to her medications at this time. We did obtain an x-ray of patient's right shoulder as the patient reported pain there and has a bruise - the XR does not reveal any acute fractures. Finally, the patient did work with PT. She will be discharged with a hemiwalker with follow up with PCP in 1-2 weeks. Per PT, she may require a wheelchair for all outdoor and long distance ambulation. Home Meds and New Rx's Prescriptions: Continued cyanocobalamin (vitamin B-12) [Vitamin B-12] 1,000 MCG tablet 1,000 mcg PO DAILY RF: 0 atorvastatin [Lipitor] 40 MG tablet 20 mg PO DAILY AM RF: 0 Brilinta 90 MG tablet 90 mg PO BID RF: 0 amlodipine 10 MG tablet 5 mg PO DAILY RF: 0 nitroglycerin [Nitrostat] 0.4 MG tablet, sublingual 1 tab Sublingual PRN PRNRF: 0 pramipexole [Mirapex] 1 mg Tablet 1 mg PO BID RF: 0 dicyclomine [Bentyl] 10 mg/mL Solution 20 mg Q6H PRNRF: 0 sucralfate [Carafate] 1 gram Tablet 1 g PO DIRECTED RF: 0 lidocaine 5 % Adhesive Patch,Medicated 1 patch TOPICAL DAILY PRNRF: 0 furosemide 20 mg Tablet 40 mg PO DAILY RF: 0 fluticasone propion-salmeterol [Advair Diskus] 100-50 mcg/dose Blister With Device 1 puff INHALATION Q12H RF: 0 polyethylene glycol 3350 17 gram Powder In Packet 17 g PO DAILY Qty: 0 RF: 0 tramadol 50 MG tablet 50 mg PO TID PRN (Reason: Back Pain) Qty: 9 RF: 0 magnesium oxide 400 MG tablet 400 mg PO DAILY Qty: 60 RF: 0 gabapentin 300 MG capsule 200 mg PO TID Qty: 0 RF: 0 fentanyl 12 MCG patch 72 hour 25 mcg Transdermal Q72H Qty: 2 RF: 0 Bystolic 20 MG tablet 10 mg PO DAILY Qty: 0 RF: 0 ferrous gluconate 324 mg (37.5 mg iron) Tablet 324 mg PO BID RF: 0 omeprazole 20 MG capsule,delayed release(DR/EC) 40 mg PO BID@729,1999 RF: 0 sertraline 100 MG tablet 200 mg PO DAILY RF: 0 levalbuterol tartrate [Xopenex HFA] 200 PUFF HFA aerosol inhaler 1 - 2 puff Inhalation Q4H PRN PRNRF: 0 cholecalciferol (vitamin D3) 1,000 UNITS tablet 2,000 units PO DAILY RF: 0 coenzyme [id number] E [Co Q-10 (with Vit E)] 1 EACH capsule 1 ea PO DAILY RF: 0 levothyroxine [Synthroid] 150 MCG tablet 150 mcg PO DAILY AM RF: 0 spironolactone 25 MG tablet 25 mg PO DAILY AM RF: 0 Discharge Instructions Instructions: Altered Mental Status (GEN) Additional Instructions: Return to the hospital if symptoms cannot be controlled at home. Otherwise, follow up with your PCP in 1-2 weeks. Follow up with palliative care. Referrals: Perry Graham [Primary Care Provider] - (1-2 weeks) Activity:: Activity as Tolerated Equipment/Supplies:: wheelchair and hemiwalker Diet:: diabetic cardiac Discharge Orders Discharge Orders: Discharge Order (Routine); Ordered 07/23/18 Ordered By: Johnna Guerrero Exam Narrative Exam Narrative: General: Frail elderly female, sitting comfortably in a chair, A&Ox3, mildly anxious HEENT: EOMI, MMM Heart: RRR, +SAGRARIO Lungs: Crackles at B bases (per patient, these are not new) GI: abdomen is soft, nontender, nondistneded Extremities: +1 BLE edema DS: Data Vitals/I&O Vitals and I&O: Vital Signs Temperature 36.2 C L 07/23/18 13:22 Temperature Source Tympanic 07/23/18 13:22 Pulse 59 L 07/23/18 13:22 Pulse Rhythm Regular 07/23/18 08:02 Pulse 46 L 07/23/18 01:17 Respiratory Rate 20 07/23/18 13:22 Respiratory Effort Non-Labored 07/23/18 08:02 Respiratory Depth Normal 07/23/18 08:02 Respiratory Pattern Normal 07/23/18 08:02 Blood Pressure 131/57 L 07/23/18 13:22 Blood Pressure Mean 58 07/23/18 01:16 Pulse Oximetry 97 07/23/18 13:22 Oxygen Delivery Method Nasal Cannula 07/23/18 13:22 Oxygen Flow Rate 2 07/23/18 13:22 Pain Level 5 07/23/18 13:02 Comment 07/23/18 10:26 Intake & Output 07/22/18 07/23/18 07/23/18 23:59 11:59 23:59 Intake Total 515 / 515 Output Total 300 / 750 450 / 750 Balance 215 / -235 -450 / -235 Weight 81.7 kg 75.1 kg Intake: Oral 515 / 515 Output: Urine 300 / 750 450 / 750 Other: Urine Color Yellow Pale Yellow Urine Appearance Clear Clear Stool Size Large Stool Characteristics Soft Formed Brown Completed studies during hospitalization [Text1]: CXR 07/22/18: Cardiomegaly and CHF. CT head 07/22/18: No acute abnormality. XR shoulder 07/23/18: Limited exam due to suboptimal positioning. No acute abnormality is seen. Labs on day of discharge: Labs from last 24 hours 07/23/18 07/23/18 07/23/18 07:55 06:22 06:22 WBC RBC Hgb Hct MCV MCH MCHC RDW Plt Count 193 MPV Immature Gran % Neutrophils % Lymphocytes % Monocytes % Eosinophils % Basophils % Absolute Neutrophils Absolute Lymphocytes Absolute Monocytes Absolute Eosinophils Absolute Basophils RBC Morphology Hypochromasia Anisocytosis Sample Site Pending pCO2 Pending pO2 Pending O2 Saturation Pending ABG pH Pending ABG HCO3 Pending ABG Total CO2 Pending ABG Base Excess Pending Sodium 140 Potassium 3.7 Chloride 103 Carbon Dioxide 30.2 Anion Gap 6.8 BUN 18 Creatinine 1.09 H Estimated GFR/1.73 m2 48.55 Glucose 90 Calcium 9.0 Magnesium Total Bilirubin 0.3 AST 18 ALT 13 Alkaline Phosphatase 78 Troponin I Total Protein 7.1 Albumin 2.8 L TSH Urine Color Urine Clarity Urine pH Ur Specific [place] Urine Protein Urine Ketones Urine Blood Urine Nitrite Urine Bilirubin Urine Urobilinogen Ur Leukocyte Esterase Urine RBC Urine WBC Ur Epithelial Cells Urine Crystals Urine Bacteria Urine Casts Urine Mucus Urine Other Ur Culture Indicated? Urine Glucose 07/22/18 07/22/18 07/22/18 22:00 20:10 20:10 WBC 8.74 RBC 3.28 L Hgb 8.1 L Hct 26.8 L MCV 81.7 MCH 24.7 L MCHC 30.2 L RDW 19.3 H Plt Count 209 MPV 9.4 Immature Gran % 0.2 Neutrophils % 60.3 Lymphocytes % 28.0 Monocytes % 8.0 Eosinophils % 3.2 Basophils % 0.3 Absolute Neutrophils 5.26 Absolute Lymphocytes 2.45 Absolute Monocytes 0.70 Absolute Eosinophils 0.28 Absolute Basophils 0.03 RBC Morphology See below Hypochromasia 1+ Anisocytosis 1+ Sample Site pCO2 pO2 O2 Saturation ABG pH ABG HCO3 ABG Total CO2 ABG Base Excess Sodium 138 Potassium 4.2 Chloride 101 Carbon Dioxide 30.6 Anion Gap 6.4 BUN 19 H Creatinine 1.18 H Estimated GFR/1.73 m2 44.30 Glucose 103 H Calcium 8.9 Magnesium 2.1 Total Bilirubin 0.3 AST 18 ALT 15 Alkaline Phosphatase 85 Troponin I 0.02 Total Protein 7.4 Albumin 3.0 L TSH 1.79 Urine Color Yellow Urine Clarity Clear Urine pH 6.0 Ur Specific [place] 1.015 Urine Protein Negative Urine Ketones Negative Urine Blood Negative Urine Nitrite Negative Urine Bilirubin Negative Urine Urobilinogen 0.2 Ur Leukocyte Esterase Trace H Urine RBC Negative Urine WBC 3-5 Ur Epithelial Cells Rare Urine Crystals Negative Urine Bacteria Few Urine Casts Negative Urine Mucus Negative Urine Other Negative Ur Culture Indicated? No Urine Glucose Negative 07/23/18 02:00 Nose MRSA Screen - Pending Preliminary micro results at discharge 07/23/18 02:00 MRSA Screen - Pending Nose [facility] Medical History Open wound of scapular region without complication (Acute) Decubital ulcer (Acute) Pulmonary embolism (Chronic) Hx of CABG (Resolved ~2000) PVD (peripheral vascular disease) (Chronic) Anemia (Chronic) Cholelithiasis without cholecystitis (Chronic) LVH (left ventricular hypertrophy) (Chronic) CAD (coronary artery disease) (Chronic) Asthma (Chronic) Low back pain (Chronic) Peripheral vascular disease (Chronic) CKD (chronic kidney disease), stage III (Chronic) Morbid obesity (Chronic) Anxiety (Chronic) Hypothyroidism (Chronic) Type 2 diabetes mellitus (Chronic) Vitamin B 12 deficiency (Chronic) Polymyalgia rheumatica (Chronic) Venous stasis dermatitis of both lower extremities (Chronic) Compression fracture of L1 lumbar vertebra (Chronic ~07/2017) Falls frequently (Acute) Decreased performance of ADLs (Acute) Acute prerenal azotemia (Resolved) Aortic stenosis, moderate (Chronic ~07/2017) Social History Smoking/Tobacco Use Status: Never Alcohol Intake: current Drug use: Never Do you feel safe at home: Yes Do you feel safe in your relationship?: Yes Additional Social history: Lives alone in her own home since 03/03/2018. Prior to that was living with her daughter from December 2017 until 03/03/2018. She was at a alf in [place] prior to moving in with her daughter. She was discharged from [facility] and was transferred to [place] from there. Lifelong non-smoker. Alcohol is not a problem for her.
--- NOTE | 2018-07-23 13:43 | DSE_ITS ---
Date of service: 07/23/18 Time of Service: 13:38 DS: Diagnosis Discharge Diagnosis (1) Altered mental state: Status: Resolved (2) Compression fracture of L1 lumbar vertebra: Status: Chronic (3) CKD (chronic kidney disease), stage III: Status: Chronic (4) Anemia: Status: Chronic (5) Type 2 diabetes mellitus: Status: Chronic (6) Right shoulder pain: Status: Acute (7) Chronic pain: Status: Chronic (8) CHF (congestive heart failure): Status: Chronic (9) Hx of CABG: Status: Resolved (10) Pulmonary embolism: Status: Chronic (11) PVD (peripheral vascular disease): Status: Chronic (12) Aortic stenosis, moderate: Status: Chronic (13) Chronic respiratory failure with hypoxia: Status: Acute (14) Ambulatory dysfunction: Status: Acute (15) Opioid dependence: Status: Acute Discharge Plan Disposition Patient Disposition: HOME W/HOME HEALTH SERVICE Condition: Good Discharge Details Reason For Visit: ALTERED MENTAL STATUS Admit Date/Time: 07/23/18 01:00 Admit Provider: Perry Graham Attending Provider: Perry Graham Primary Care Provider: Perry Graham Hospital Course Hospital Course: Ms Vinson is a 78 year old female with a number of chronic medical conditions, including chornic hypoxic respiratory failure on 2L of O2, Aortic stenosis, chronic diastolic CHF, pulmonary hypertension, CAD s/p CABG, CKD3, Type 2 diabetes mellitus, observed on hospitalist service at [facility] on 07/23/18 for altered mental status (difficulty being awoken from sleep). The patient's mental status was at near baseline by the time she was evaluated by the admitting attending. The patient's blood pressures here were highly variable, sometimes noted to be in 70's systolic (not manually). It would be good to monitor the patient's blood pressures at home with home health to ensure that these episodes of hypotension do not happen at home. The patient's BP on discharge is stable (SBP in 130's). She does appear to be slightly fluid overloaded and was gently diuresed prior to discharge. One of the things that could explain her altered mental status is possibly the pain medications causing CO2 narcosis. We do not have proof of this while I am writing this discharge summary - ABG, when initially ordered, was refused, but is being reattempted now. This is certainly something to consider if this recurs. Per my conversation with patient, her fa obie, as well as patient's PCP, Dr Graham, the patient is to return home today with palliative care consult to occur (the family cannot wait for this to happen on inpatient basis, so outpatient referral is being sent). No changes are being made to her medications at this time. We did obtain an x-ray of patient's right shoulder as the patient reported pain there and has a bruise - the XR does not reveal any acute fractures. Finally, the patient did work with PT. She will be discharged with a hemiwalker with follow up with PCP in 1-2 weeks. Per PT, she may require a wheelchair for all outdoor and long distance ambulation. Home Meds and New Rx's Prescriptions: Continued cyanocobalamin (vitamin B-12) [Vitamin B-12] 1,000 MCG tablet 1,000 mcg PO DAILY RF: 0 atorvastatin [Lipitor] 40 MG tablet 20 mg PO DAILY AM RF: 0 Brilinta 90 MG tablet 90 mg PO BID RF: 0 amlodipine 10 MG tablet 5 mg PO DAILY RF: 0 nitroglycerin [Nitrostat] 0.4 MG tablet, sublingual 1 tab Sublingual PRN PRNRF: 0 pramipexole [Mirapex] 1 mg Tablet 1 mg PO BID RF: 0 dicyclomine [Bentyl] 10 mg/mL Solution 20 mg Q6H PRNRF: 0 sucralfate [Carafate] 1 gram Tablet 1 g PO DIRECTED RF: 0 lidocaine 5 % Adhesive Patch,Medicated 1 patch TOPICAL DAILY PRNRF: 0 furosemide 20 mg Tablet 40 mg PO DAILY RF: 0 fluticasone propion-salmeterol [Advair Diskus] 100-50 mcg/dose Blister With Device 1 puff INHALATION Q12H RF: 0 polyethylene glycol 3350 17 gram Powder In Packet 17 g PO DAILY Qty: 0 RF: 0 tramadol 50 MG tablet 50 mg PO TID PRN (Reason: Back Pain) Qty: 9 RF: 0 magnesium oxide 400 MG tablet 400 mg PO DAILY Qty: 60 RF: 0 gabapentin 300 MG capsule 200 mg PO TID Qty: 0 RF: 0 fentanyl 12 MCG patch 72 hour 25 mcg Transdermal Q72H Qty: 2 RF: 0 Bystolic 20 MG tablet 10 mg PO DAILY Qty: 0 RF: 0 ferrous gluconate 324 mg (37.5 mg iron) Tablet 324 mg PO BID RF: 0 omeprazole 20 MG capsule,delayed release(DR/EC) 40 mg PO BID@ RF: 0 sertraline 100 MG tablet 200 mg PO DAILY RF: 0 levalbuterol tartrate [Xopenex HFA] 200 PUFF HFA aerosol inhaler 1 - 2 puff Inhalation Q4H PRN PRNRF: 0 cholecalciferol (vitamin D3) 1,000 UNITS tablet 2,000 units PO DAILY RF: 0 coenzyme [id number] E [Co Q-10 (with Vit E)] 1 EACH capsule 1 ea PO DAILY RF: 0 levothyroxine [Synthroid] 150 MCG tablet 150 mcg PO DAILY AM RF: 0 spironolactone 25 MG tablet 25 mg PO DAILY AM RF: 0 Discharge Instructions Instructions: Altered Mental Status (GEN) Additional Instructions: Return to the hospital if symptoms cannot be controlled at home. Otherwise, follow up with your PCP in 1-2 weeks. Follow up with palliative care. Referrals: Perry Graham [Primary Care Provider] - (1-2 weeks) Activity:: Activity as Tolerated Equipment/Supplies:: wheelchair and hemiwalker Diet:: diabetic cardiac Discharge Orders Discharge Orders: Discharge Order (Routine); Ordered 07/23/18 Ordered By: Johnna Guerrero Exam Narrative Exam Narrative: General: Frail elderly female, sitting comfortably in a chair, A&Ox3, mildly anxious HEENT: EOMI, MMM Heart: RRR, +SAGRARIO Lungs: Crackles at B bases (per patient, these are not new) GI: abdomen is soft, nontender, nondistneded Extremities: +1 BLE edema DS: Data Vitals/I&O Vitals and I&O: Vital Signs Temperature 36.2 C L 07/23/18 13:22 Temperature Source Tympanic 07/23/18 13:22 Pulse 59 L 07/23/18 13:22 Pulse Rhythm Regular 07/23/18 08:02 Pulse 46 L 07/23/18 01:17 Respiratory Rate 20 07/23/18 13:22 Respiratory Effort Non-Labored 07/23/18 08:02 Respiratory Depth Normal 07/23/18 08:02 Respiratory Pattern Normal 07/23/18 08:02 Blood Pressure 131/57 L 07/23/18 13:22 Blood Pressure Mean 58 07/23/18 01:16 Pulse Oximetry 97 07/23/18 13:22 Oxygen Delivery Method Nasal Cannula 07/23/18 13:22 Oxygen Flow Rate 2 07/23/18 13:22 Pain Level 5 07/23/18 13:02 Comment 07/23/18 10:26 Intake & Output 07/22/18 07/23/18 07/23/18 23:59 11:59 23:59 Intake Total 515 / 515 Output Total 300 / 750 450 / 750 Balance 215 / -235 -450 / -235 Weight 81.7 kg 75.1 kg Intake: Oral 515 / 515 Output: Urine 300 / 750 450 / 750 Other: Urine Color Yellow Pale Yellow Urine Appearance Clear Clear Stool Size Large Stool Characteristics Soft Formed Brown Completed studies during hospitalization [Text1]: CXR 07/22/18: Cardiomegaly and CHF. CT head 07/22/18: No acute abnormality. XR shoulder 07/23/18: Limited exam due to suboptimal positioning. No acute abnormality is seen. Labs on day of discharge: Labs from last 24 hours 07/23/18 07/23/18 07/23/18 07:55 06:22 06:22 WBC RBC Hgb Hct MCV MCH MCHC RDW Plt Count 193 MPV Immature Gran % Neutrophils % Lymphocytes % Monocytes % Eosinophils % Basophils % Absolute Neutrophils Absolute Lymphocytes Absolute Monocytes Absolute Eosinophils Absolute Basophils RBC Morphology Hypochromasia Anisocytosis Sample Site Pending pCO2 Pending pO2 Pending O2 Saturation Pending ABG pH Pending ABG HCO3 Pending ABG Total CO2 Pending ABG Base Excess Pending Sodium 140 Potassium 3.7 Chloride 103 Carbon Dioxide 30.2 Anion Gap 6.8 BUN 18 Creatinine 1.09 H Estimated GFR/1.73 m2 48.55 Glucose 90 Calcium 9.0 Magnesium Total Bilirubin 0.3 AST 18 ALT 13 Alkaline Phosphatase 78 Troponin I Total Protein 7.1 Albumin 2.8 L TSH Urine Color Urine Clarity Urine pH Ur Specific [place] Urine Protein Urine Ketones Urine Blood Urine Nitrite Urine Bilirubin Urine Urobilinogen Ur Leukocyte Esterase Urine RBC Urine WBC Ur Epithelial Cells Urine Crystals Urine Bacteria Urine Casts Urine Mucus Urine Other Ur Culture Indicated? Urine Glucose 07/22/18 07/22/18 07/22/18 22:00 20:10 20:10 WBC 8.74 RBC 3.28 L Hgb 8.1 L Hct 26.8 L MCV 81.7 MCH 24.7 L MCHC 30.2 L RDW 19.3 H Plt Count 209 MPV 9.4 Immature Gran % 0.2 Neutrophils % 60.3 Lymphocytes % 28.0 Monocytes % 8.0 Eosinophils % 3.2 Basophils % 0.3 Absolute Neutrophils 5.26 Absolute Lymphocytes 2.45 Absolute Monocytes 0.70 Absolute Eosinophils 0.28 Absolute Basophils 0.03 RBC Morphology See below Hypochromasia 1+ Anisocytosis 1+ Sample Site pCO2 pO2 O2 Saturation ABG pH ABG HCO3 ABG Total CO2 ABG Base Excess Sodium 138 Potassium 4.2 Chloride 101 Carbon Dioxide 30.6 Anion Gap 6.4 BUN 19 H Creatinine 1.18 H Estimated GFR/1.73 m2 44.30 Glucose 103 H Calcium 8.9 Magnesium 2.1 Total Bilirubin 0.3 AST 18 ALT 15 Alkaline Phosphatase 85 Troponin I 0.02 Total Protein 7.4 Albumin 3.0 L TSH 1.79 Urine Color Yellow Urine Clarity Clear Urine pH 6.0 Ur Specific [place] 1.015 Urine Protein Negative Urine Ketones Negative Urine Blood Negative Urine Nitrite Negative Urine Bilirubin Negative Urine Urobilinogen 0.2 Ur Leukocyte Esterase Trace H Urine RBC Negative Urine WBC 3-5 Ur Epithelial Cells Rare Urine Crystals Negative Urine Bacteria Few Urine Casts Negative Urine Mucus Negative Urine Other Negative Ur Culture Indicated? No Urine Glucose Negative 07/23/18 02:00 Nose MRSA Screen - Pending Preliminary micro results at discharge 07/23/18 02:00 MRSA Screen - Pending Nose [facility] Medical History Open wound of scapular region without complication (Acute) Decubital ulcer (Acute) Pulmonary embolism (Chronic) Hx of CABG (Resolved ~2000) PVD (peripheral vascular disease) (Chronic) Anemia (Chronic) Cholelithiasis without cholecystitis (Chronic) LVH (left ventricular hypertrophy) (Chronic) CAD (coronary artery disease) (Chronic) Asthma (Chronic) Low back pain (Chronic) Peripheral vascular disease (Chronic) CKD (chronic kidney disease), stage III (Chronic) Morbid obesity (Chronic) Anxiety (Chronic) Hypothyroidism (Chronic) Type 2 diabetes mellitus (Chronic) Vitamin B 12 deficiency (Chronic) Polymyalgia rheumatica (Chronic) Venous stasis dermatitis of both lower extremities (Chronic) Compression fracture of L1 lumbar vertebra (Chronic ~07/2017) Falls frequently (Acute) Decreased performance of ADLs (Acute) Acute prerenal azotemia (Resolved) Aortic stenosis, moderate (Chronic ~07/2017) Social History Smoking/Tobacco Use Status: Never Alcohol Intake: current Drug use: Never Do you feel safe at home: Yes Do you feel safe in your relationship?: Yes Additional Social history: Lives alone in her own home since 03/03/2018. Prior to that was living with her daughter from December 2017 until 03/03/2018. She was at a fpc in [place] prior to moving in with her daughter. She was discharged from [facility] July [facility] and was transferred to [place] from there. Lifelong non-smoker. Alcohol is not a problem for her.
[2018-07-23] MEDS: Furosemide 20 MG/2 ML VIAL 10 MG IVP (13:46)
[2018-07-23] MEDS: Normal Saline Flush 10 ML SYR IVP (13:47)
--- NOTE | 2018-07-23 15:20 | HHF2F_ITS ---
1. Encounter Date and Reason I certify that COLBY DECKER was seen by Johnna Guerrero on 07/23/18 and that I had a [id number] encounter with this patient that meets the physician face to face encounter requirements. 2. Clinical Findings Supporting Skilled Need and Homebound Status I certify that home health services are medically necessary, include either intermittent snf and/or physical/speech therapy, and that this patient is homebound in that absences from the home require considerable and taxing effort and are infrequent or of short duration, or are attributable to the need to receive medical care. [X] (a) Attached documentation from encounter provides clinical findings supporting skilled need and homebound status (including what assistance patient requires to leave the home). The encounter with the patient was in whole, or in part, for the following medical condition, which is the primary reason for home health care: ALTERED MENTAL STATUS [facility]: resumption of home health nursing - evaluate medications, BP's at home, compliance Physical Therapy: eval and treat Occupationa Therapy: eval and treat Homebound: unable to leave home without assistance 3. Certification and Authentication I certify that I composed the above information based on my clinical judgement relating to this patient's medical condition and, if applicable, clinical findings communicated to me by the NPP or inpatient physician who performed the Home Health Referral. All further orders will be obtained through Dr Graham (Community Based Physician - PCP)
== END 2018-07-23 15:35 | disposition home health service (06) ==
LOC: ER 07-23 00:36 → MS 07-23 01:59
PROVIDERS: Admitting Provider Family Medicine; Emergency Provider Physician Assistant; PCP Family Medicine; Visit Provider Internal Medicine
DX: R41.82 Altered mental status, unspecified (principal); M48.56XA Collapsed vertebra, not elsewhere classified, lumbar region, initial encounter for fracture; Z79.891 Long term (current) use of opiate analgesic; N18.3 Chronic kidney disease, stage 3 (moderate); D50.8 Other iron deficiency anemias; E11.22 Type 2 diabetes mellitus with diabetic chronic kidney disease; J96.11 Chronic respiratory failure with hypoxia; I35.0 Nonrheumatic aortic (valve) stenosis; I50.32 Chronic diastolic (congestive) heart failure; I27.29 Other secondary pulmonary hypertension; M25.511 Pain in right shoulder; S40.011A Contusion of right shoulder, initial encounter; W19.XXXA Unspecified fall, initial encounter
CPT/HCPCS: 36415; 51702; 73030; 80053; 82805; 87081; 94640; 97162; 97530; 99217; 99220; 99285; 70450; 71046; 81003; 81015; 83735; 84443; 84484; 85025; 85049; 99284; G0378; J1644; J1941; J3490; L3650

== ENCOUNTER 2018-07-30 21:21 | Outpatient (REF) | payer MEDICARE, MEDICAID, SELFPAY | END 2018-07-30 21:41 | LOC: LBN 21:21 | PROVIDERS: PCP Family Medicine; Visit Provider Family Medicine | DX: N39.0 Urinary tract infection, site not specified (principal) | CPT/HCPCS: 87077; 87086; 87186 ==

== ENCOUNTER 2019-05-10 18:32 | Emergency (ER) | payer MEDICARE, MEDICAID, SELFPAY ==
[2019-05-10 18:34] VITALS: BP 149/51; PULSE 65; RESP 20; TEMP 36.9; O2SAT 92
--- NOTE | 2019-05-10 18:44 | W.ED.GENAD ---
Discharge Plan Disposition Patient Disposition: HOME Condition: Good Discharge Details Chief Complaint: HeadInjury Clinical Impression: Fall, Contusion of scalp Primary Care Provider: Perry Graham ED Provider: Gurjit Conteh Home Meds and New Rx's Prescriptions: No Action cyanocobalamin (vitamin B-12) [Vitamin B-12] 1,000 MCG tablet 1,000 mcg PO DAILY RF: 0 atorvastatin [Lipitor] 40 MG tablet 20 mg PO DAILY AM RF: 0 Brilinta 90 MG tablet 90 mg PO BID RF: 0 amlodipine 10 MG tablet 5 mg PO DAILY RF: 0 nitroglycerin [Nitrostat] 0.4 MG tablet, sublingual 1 tab Sublingual PRN PRNRF: 0 pramipexole [Mirapex] 1 mg Tablet 1 mg PO BID RF: 0 dicyclomine [Bentyl] 10 mg/mL Solution 20 mg Q6H PRNRF: 0 sucralfate [Carafate] 1 gram Tablet 1 g PO DIRECTED RF: 0 lidocaine 5 % Adhesive Patch,Medicated 1 patch TOPICAL DAILY PRNRF: 0 furosemide 20 mg Tablet 40 mg PO DAILY RF: 0 fluticasone propion-salmeterol [Advair Diskus] 100-50 mcg/dose Blister With Device 1 puff INHALATION Q12H RF: 0 polyethylene glycol 3350 17 gram Powder In Packet 17 g PO DAILY Qty: 0 RF: 0 tramadol 50 MG tablet 50 mg PO TID PRN (Reason: Back Pain) Qty: 9 RF: 0 magnesium oxide 400 MG tablet 400 mg PO DAILY Qty: 60 RF: 0 gabapentin 300 MG capsule 200 mg PO TID Qty: 0 RF: 0 fentanyl 12 MCG patch 72 hour 25 mcg Transdermal Q72H Qty: 2 RF: 0 Bystolic 20 MG tablet 10 mg PO DAILY Qty: 0 RF: 0 ferrous gluconate 324 mg (37.5 mg iron) Tablet 324 mg PO BID RF: 0 omeprazole 20 MG capsule,delayed release(DR/EC) 40 mg PO BID@729,1999 RF: 0 sertraline 100 MG tablet 200 mg PO DAILY RF: 0 levalbuterol tartrate [Xopenex HFA] 200 PUFF HFA aerosol inhaler 1 - 2 puff Inhalation Q4H PRN PRNRF: 0 cholecalciferol (vitamin D3) 1,000 UNITS tablet 2,000 units PO DAILY RF: 0 coenzyme A91-muopvif E [Co Q-10 (with Vit E)] 1 EACH capsule 1 ea PO DAILY RF: 0 levothyroxine [Synthroid] 150 MCG tablet 150 mcg PO DAILY AM RF: 0 spironolactone 25 MG tablet 25 mg PO DAILY AM RF: 0 Discharge Instructions Instructions: Contusion in Adults (ED), Hematoma (ED) Additional Instructions: At this time there is no evidence of new fracture. You do have some old small compression fractures of your spine, but none that require intervention. Please take Tylenol as needed for pain. Use heating pad or ice over your hematoma on your scalp as needed. If you notice any worsening of your symptoms, or any new symptoms such as vomiting, diarrhea, fever, chills, shortness of breath, chest pain, numbness, weakness, or fainting , please return immediately to the emergency department for reevaluation. Please follow up with your primary care provider as soon as possible for reassessment and reevaluation. As always, it was a pleasure participating in your medical care today. Referrals: Perry Graham [Primary Care Provider] - Medical Decision Making 78-year-old female with a past medical history of CABG, CHF, peripheral vascular disease, chronic low back pain, diabetes, old lumbar compression fractures, who ambulates with a walker who presents today for evaluation of fall. Patient was utilizing her walker when she had a mechanical slip, fell backwards and hit her head on a parked car. She had no loss of consciousness, she recalls the entire event. She did need some help getting up. She complains of pain in the back of her head, as well as her neck to the point of her shoulders. She also admits to some mild hip pain, however she states that there is no new pain aside for this. She does have chronic pain in her lower back, legs and knees but she states that this is unchanged. She is on Brilinta. She has no complaints of numbness tingling weakness fever chills cough or shortness of breath. No other complaints at this time. No other modifying factors. Exam demonstrates minimal tenderness in the hips bilaterally which seems to be chronic as well as minimal tenderness midline cervical spine as well as the T1 of the thoracic spine, however the patient also states that there is a chronic component to this to. She does have a contusion to her posterior scalp, no evidence of laceration though. No other signs of significant trauma. We will get a CT scan of the head neck and thoracic spine, as well as bilateral hips, I feel the likelihood for fracture is low. Patient does not want anything for pain at this time. Will closely monitor. No evidence of other significant trauma requiring imaging. 8:[address] scan results have returned, no evidence of acute fracture process, she does have some old compression fractures, but no evidence of significant abnormality requiring intervention at this time. Patient is feeling much better. We did get her up, she ambulated well around the ED. Family is here now, and will be bringing her home, will be able to help her in care for tonight. At this time feel patient is safe for discharge home, and shows no signs of significant abnormality otherwise requiring acute intervention. I have extensively reviewed the treatment plan and discharge instructions with the patient and their family. I have addressed all patient concerns at this time. The patient and family was made aware of what symptoms to monitor for that would warrant a return to the emergency department. Discussed the plan with the patient and family, they demonstrate verbal understanding and agreement with our assessment and plan at this time. FINDINGS: Brain: Age related brain involution is present. No acute intracranial hemorrhage, mass effect, midline shift, or brain herniation. Diffuse subcortical and periventricular white matter hypodensities are most in favor with chronic small vessel disease. Ventricles: There is ex vacuo ventriculomegaly. Bones/joints: Unremarkable. No acute fracture. Sinuses: There is fluid within the sinuses, consistent with sinusitis. Mastoid air cells: Visualized mastoid air cells are well aerated. Orbits: There have been bilateral intraocular lens replacements. Soft tissues: Right parietal scalp soft tissue swelling. IMPRESSION: 1. Negative for acute intracranial pathology. 2. Right parietal scalp posttraumatic soft tissue swelling. FINDINGS: Vertebrae: Multilevel degenerative changes of the vertebra are present, as manifested by multilevel anterior osteophytes, endplate sclerosis, and multilevel posterior disc osteophyte complexes. No acutely displaced fracture or dislocation. Discs/Spinal canal/Neural foramina: Spinal canal is patent. Multilevel bony neural foraminal stenosis is suggested. There is multilevel uncovertebral joint hypertrophy. Soft tissues: No acute soft tissue findings. Lungs: Mild scarring in the bilateral lung apices, slightly worse on the right. No acute findings at the lung apices otherwise. IMPRESSION: Multilevel degenerative disease without acute skeletal pathology. Thank you for allowing us to participate in the care of your patient. Dictated and Authenticated by: Heriberto Erickson MD 05/10/2019 7:44 PM Eastern Time ([place] & [place]) FINDINGS: Vertebrae: There is a compression fracture at L1 with greater than 50% loss in vertebral body height which is chronic in etiology. There is a mild superior endplate compression fracture at T7 which has significant sclerosis and is most probably chronic in etiology. No acutely displaced fractures are otherwise appreciated. Moderate multilevel degenerative changes of the spine, as manifested by multilevel anterior osteophytes and multilevel decrease in intervertebral disc space. Discs/Spinal canal/Neural foramina: Spinal canal appears patent. Mild multilevel bony neural foraminal stenosis is suggested. Soft tissues: No acute findings. Vasculature: The pulmonary arteries demonstrate mild central enlargement, consistent with mild pulmonary hypertension. Lungs: Mild scarring in the bilateral upper lobes with associated atelectasis. No acute interstitial or airspace disease is grossly noted. Heart: The heart is markedly enlarged. There is calcification of the mitral valve annulus. There is calcification of the aortic valve annulus. There is severe atherosclerotic calcification of the coronary arteries. No pericardial thickening or effusion. Other findings: The visualized intra-abdominal structures demonstrate no acute findings. IMPRESSION: 1. Mild superior endplate compression injury at T7 with approximately 15% loss in vertebral body height appears to be chronic in etiology. Consider MRI correlation if there is concern for subacute injury at this level. 2. Chronic severe compression injury at L1 with greater than 50% loss in vertebral body height. 3. No other acutely displaced fractures are appreciated. 4. Moderate multilevel degenerative disease, as detailed above. 5. Other chronic findings as detailed above. Thank you for allowing us to participate in the care of your patient. Dictated and Authenticated by: Heriberto Erickson MD 05/10/2019 7:50 PM Eastern Time ([place] & [place]) FINDINGS: Bones/joints: Moderate to severe bilateral hip osteoarthritis is appreciated, worse on the right side. No acutely displaced fractures are grossly appreciated. No dislocation. No aggressive osseous lesions. Soft tissues: No acute soft tissue findings. Intraperitoneal space: Tubal ligation clips suggested in the pelvis. IMPRESSION: 1. Negative for acute skeletal pathology. 2. Incidental/chronic findings as above. Thank you for allowing us to participate in the care of your patient. Dictated and Authenticated by: Heriberto Erickson MD 05/10/2019 7:51 PM Eastern Time ([place] & [place]) HPI General Date/Time Provider Initiated Documentation: 05/10/19 18:44. HPI Narrative: 78-year-old female with a past medical history of CABG, CHF, peripheral vascular disease, chronic low back pain, diabetes, old lumbar compression fractures, who ambulates with a walker who presents today for evaluation of fall. Patient was utilizing her walker when she had a mechanical slip, fell backwards and hit her head on a parked car. She had no loss of consciousness, she recalls the entire event. She did need some help getting up. She complains of pain in the back of her head, as well as her neck to the point of her shoulders. She also admits to some mild hip pain, however she states that there is no new pain aside for this. She does have chronic pain in her lower back, legs and knees but she states that this is unchanged. She is on Brilinta. She has no complaints of numbness tingling weakness fever chills cough or shortness of breath. No other complaints at this time. No other modifying factors. Related Data Home Medications Medication Instructions Recorded Confirmed cyanocobalamin (vitamin B-12) 1,000 mcg PO DAILY 07/05/12 07/22/18 [Vitamin B-12] Brilinta 90 mg PO BID 03/11/13 07/22/18 atorvastatin [Lipitor] 20 mg PO DAILY AM 03/11/13 07/22/18 amlodipine 5 mg PO DAILY 06/27/14 07/22/18 nitroglycerin [Nitrostat] 1 tab SUBLINGUAL PRN PRN 06/27/14 07/22/18 omeprazole 40 mg PO BID@0730,199904/01/16 07/22/18 sertraline 200 mg PO DAILY 05/17/16 07/22/18 levalbuterol tartrate [Xopenex HFA] 1 - 2 puff INHALATION Q4H PRN PRN 05/18/16 07/22/18 inh cholecalciferol (vitamin D3) 2,000 units PO DAILY 10/08/16 07/22/18 coenzyme D24-hpbocbh E [Co Q-10 1 ea PO DAILY 05/24/17 07/22/18 (with Vit E)] levothyroxine [Synthroid] 150 mcg PO DAILY AM 10/09/17 07/22/18 spironolactone 25 mg PO DAILY AM 10/09/17 07/22/18 dicyclomine [Bentyl] 20 mg Q6H PRN 03/05/18 07/22/18 fluticasone propion-salmeterol 1 puff INHALATION Q12H 03/05/18 07/22/18 [Advair Diskus] furosemide 40 mg PO DAILY 03/05/18 07/22/18 lidocaine 1 patch TOPICAL DAILY PRN 03/05/18 07/22/18 pramipexole [Mirapex] 1 mg PO BID 03/05/18 07/22/18 sucralfate [Carafate] 1 g PO DIRECTED 03/05/18 07/22/18 Bystolic 10 mg PO DAILY #0 tab 03/08/18 07/22/18 fentanyl 25 mcg TRANSDERMAL Q72H #2 ea 03/08/18 07/22/18 gabapentin 200 mg PO TID #0 cap 03/08/18 07/22/18 magnesium oxide 400 mg PO DAILY #60 tab 03/08/18 07/22/18 polyethylene glycol 3350 17 g PO DAILY #0 ea 03/08/18 07/22/18 tramadol 50 mg PO TID PRN #9 tab 03/08/18 07/22/18 ferrous gluconate 324 mg PO BID 07/22/18 07/22/18 Previous Rx's Medication Instructions Recorded levalbuterol tartrate [Xopenex HFA] 1 - 2 puff INHALATION Q4H PRN PRN 05/18/16 inh Bystolic 10 mg PO DAILY #0 tab 03/08/18 fentanyl 25 mcg TRANSDERMAL Q72H #2 ea 03/08/18 gabapentin 200 mg PO TID #0 cap 03/08/18 magnesium oxide 400 mg PO DAILY #60 tab 03/08/18 polyethylene glycol 3350 17 g PO DAILY #0 ea 03/08/18 tramadol 50 mg PO TID PRN #9 tab 03/08/18 Allergies Allergy/AdvReac Type Severity Reaction Status Date / Time aspirin Allergy Severe Anaphylaxsi Unverified 07/22/18 19:45 s morphine Allergy Intermediate Skin Rash Unverified 07/22/18 19:45 NSAIDS (Non-Steroidal Allergy Intermediate Skin Rash Unverified 07/22/18 19:45 Anti-Inflamma Sulfa (Sulfonamide Allergy Intermediate Skin Rash Unverified 07/22/18 19:45 Antibiotics) Quinidine-Quinine Analogues AdvReac Intermediate high fever Unverified 07/22/18 19:45 (Cincho tetanus and diphtheria AdvReac Intermediate Swelling/Ed Unverified 07/22/18 19:45 toxoids rachel [Tetanus&Diphtheria Toxoid] NADIYA Inhibitors AdvReac Mild cough Unverified 07/22/18 19:45 General ELISE: 2 Review of Systems All systems reviewed & are unremarkable except as noted in HPI and below [facility] Medical History (Updated 05/10/19 @ 20:02 by Gurjit Conteh DO) Acute prerenal azotemia (Resolved) Anemia (Chronic) Anxiety (Chronic) Aortic stenosis, moderate (Chronic ~07/2017) Asthma (Chronic) Chronic hypoxemic respiratory failure and patient is on 2 liters of oxygen chronically at rest and 3 liters with exertion. CAD (coronary artery disease) (Chronic) CABG approximately ten years ago; recently cardiac cath with single stent placement on inferior portion of heart down at [facility]. Dr. Navarro follows patient. Cholelithiasis without cholecystitis (Chronic) CKD (chronic kidney disease), stage III (Chronic) Baseline creatine 1.1 to 1.3 Compression fracture of L1 lumbar vertebra (Chronic ~07/2017) Decreased performance of ADLs (Acute) Decubital ulcer (Acute) Falls frequently (Acute) Frailty syndrome in geriatric patient (Chronic) Goals of care, counseling/discussion (Acute) Hx of CABG (Resolved ~2000) 2000 Hypothyroidism (Chronic) Low back pain (Chronic) LVH (left ventricular hypertrophy) (Chronic) Morbid obesity (Chronic) Open wound of scapular region without complication (Acute) Palliative care patient (Chronic) Peripheral vascular disease (Chronic) Polymyalgia rheumatica (Chronic) Pulmonary embolism (Chronic) PVD (peripheral vascular disease) (Chronic) Type 2 diabetes mellitus (Chronic) On insulin. Unintentional weight loss (Chronic) Vascular dementia (Chronic) Venous stasis dermatitis of both lower extremities (Chronic) Vitamin B 12 deficiency (Chronic) Surgical History (Updated 07/27/18 @ 12:14 by Demetria Smith MD) S/P CABG x 2 (Chronic) Social History (Updated 07/27/18 @ 12:19 by Demetria Smith MD) Smoking/Tobacco Use Status: Never Second Hand Exposure: No Alcohol Intake: never Drug use: Never Caregiver/Support person: Yes Household members: family Housing: house Number of Children: 2 number of grandchildren: 5 Communication Needs: Hard of Hearing and Corrective Lenses Education Level: high school Do you need help understanding health information?: Always 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 Prior to that was living with her daughter from December 2017 until 03/03/2018. She was at a [facility] in [place] prior to moving in with her daughter. NEVER wants to go to a mcc again. Never wants to go to [facility]. Exam Narrative Exam Narrative: 1.Const: Well-nourished, Well-developed, appearing stated age 2.Eyes: PERRL, no conjunctival injection, and symmetrical lids. 3.ENT: Atraumatic external nose and ears. Moist MM. Neck: Symmetric, trachea midline, No thyromegaly. There is no evidence of raccoon eyes, lyons sign, CSF rhinorrhea, mastoid tenderness, cranial crepitus, hemotympanum, exophthalmos, or hyphema. Patient demonstrates intact dentition with no signs of tooth avulsion or fracture, no signs of jaw deformity, no evidence of a LeFort's fracture, with an intact palate, nose and orbital region. There is no evidence of a nasal septal hematoma. No proptosis. Jaw closes symmetrically. Airway is clear. 4.CVS: +S1/S2, No murmurs or gallops. Peripheral pulses 2+ and equal in all extremities. Brisk capillary refill in all extremities. No evidence of chest wall tenderness. Regular rate and rhythm, Normal s1 and s2. No murmurs, carotid bruits, rubs, or gallops. Radial pulses 2+ bilaterally and symmetric. Dorsalis pedis pulses 2+ bilaterally and symmetric. 2+ capillary refill. No evidence of distant heart sounds. No extremity edema. No evidence of gross hemorrhage. 5.RESP: Unlabored respiratory effort. Clear to auscultation bilaterally. No wheezes rales or rhonchi. Airway clear, no obstructions. No abrasions or ecchymosis. Chest movement symmetric with respirations. No chest wall tenderness. Trachea midline. No crepitus. No step offs. No paradoxical movements. Lungs are clear to auscultation bilaterally. No rales, rhonchi, wheezing or stridor. Breath sound symmetric. No Sucking chest wounds. No clinical evidence of significant chest trauma. 6.GI: Soft, nondistended, nontender. Bowel tones normoactive. No masses or organomegaly. No ecchymosis or abrasions. No periumbilical ecchymosis or seatbelt sign. No flank or CVA tenderness. No clinical signs of significant trauma. No clinical evidence of significant abdominal trauma. 7.MSK: Mild hematoma to the posterior scalp. Extremities w/o deformity or ttp No cyanosis or clubbing, Normal movement of all extremities. Minimal tenderness on palpation of the hips bilaterally, no evidence of laxity or open book fracture. No pain with logroll of the legs bilaterally. No significant pain in the legs knees feet shins femur or arms. Normal strength of the upper and lower extremities bilaterally. Patient does have midline and minimal cervical spine tenderness, as well as tenderness over T1-T2. No step-off sign or other abnormality though. She states that there is notably a chronic component regards to the symptoms. 8.Skin: Warm, Dry. No rashes or lesions. 9.Neuro: ebd teacher II-XII grossly intact. Sensation grossly intact, no focal neurologic deficits. 10.Psych: (AAO) x3. Appropriate mood and affect Sign Out Sign Out Data: Sign Out Comment: Pending CT and x-ray results. Last updated by Gurjit Conteh DO at 05/10/19 19:43
--- NOTE | 2019-05-10 19:16 | DI.CT_ITS ---
EXAM: CT HEAD CERVICAL SPINE WO CLINICAL HISTORY: fall, hit occiput, on thinners. TECHNIQUE: Imaging Protocol: Axial computed tomography images with coronal and sagittal reformatted images were created and reviewed COMPARISON: CT HEAD WO from 07/22/2018 FINDINGS: CT head: Ventricles and Extra axial spaces: There is global cerebral atrophy consistent with the patient's age . Hemorrhage: None. Cerebral parenchyma: There are areas of decreased attenuation in the white matter consistent with sma ll vessel ischemic disease. No acute territorial infarct. Midline shift: None. Brainstem/Cerebellum: Normal. Calvarium: Normal. Visualized Paranasal sinuses/Mastoids: Opacification of a few ethmoid air cells in the right sphenoid sinus. No fluid levels are present. The mastoid air cells are well pneumatized. Soft tissue: Scalp hematoma overlying the right parietal bone posteriorly. CT cervical spine: The odontoid is intact. The lateral masses are well aligned. No acute fracture or subluxation is se en. There are degenerative changes throughout the cervical spine. Prevertebral soft tissues are unr emarkable. No acute findings are seen in the lung apices. IMPRESSION: 1. No acute intracranial process. 2. Scalp hematoma overlying the right parietal bone. 3. No acute fractures or subluxations in the cervical spine. RADIATION DOSE DELIVERED: DATA REPOSITORY: All CT scans at this facility are submitted to the National Radiology Data Registry (NRDR) Dose Index Registry (DIR) with the [employer] ([employer]). RADIATION OPTIMIZATION: All CT scans at this facility use at least one of these dose optimization te chniques: automated exposure control; mA and/or kV adjustment per patient size (includes targeted exa ms where dose is matched to clinical indication); or iterative reconstruction.
--- NOTE | 2019-05-10 19:30 | DI.RAD_ITS ---
EXAM: XR HIP PELVIS ADULT BL CLINICAL HISTORY: fall, elderly, hip pain. TECHNIQUE: 2D digital imaging was performed. COMPARISON: No exams were available for comparison FINDINGS: BONES: No acute fracture is present. No bony destructive lesion is seen. JOINTS: No dislocation. Degenerative changes in the hips bilaterally, right greater than left. SOFT TISSUE: Surgical clips are seen in the pelvis. IMPRESSION: No acute fracture or dislocation in the pelvis or hips. DATA REPOSITORY: RADIATION DOSE DELIVERED:
--- NOTE | 2019-05-10 19:30 | DI.CT_ITS ---
EXAM: CT THORACIC SPINE WO CLINICAL HISTORY: fall, hit upper thoracic spine. TECHNIQUE: Imaging Protocol: Axial computed tomography images with coronal and sagittal reformatted images were created and reviewed. CONTRAST MATERIAL: Intravenous: Omnipaque 350 Contrast volume:0 mL contrast route:IV - Oral: No COMPARISON: CT lumbar spine w from 03/05/2018 XR CHEST 2V PA LATERAL from 07/22/2018 FINDINGS: Bones: There is an old compression fracture of L1 with loss of approximately 50 percent of the height of the vertebral body. There is also compression fracture deformity of T7 with loss of approximatel y 15 percent of the height of the vertebral body. This is apparent on the chest x-ray from 07/22/2018 . There is also a mild compression deformity of the superior endplate of T5. This is indeterminate i n acuity. The alignment of the spine is normal including the cervicothoracic junction. There are deg enerative changes present throughout the thoracic spine. Soft tissues: The soft tissues of the chest are unremarkable. There is mild scarring in the lung apic es with atelectasis. No focal consolidating infiltrates are seen in the visualized portions of the l ungs. There is prominence of the pulmonary arteries suggesting pulmonary artery hypertension. There is cardiomegaly. Carotid artery calcification is present. No significant pericardial effusion is a ppreciated. IMPRESSION: 1. Old compression deformities of L1 and T7. 2. Mild compression deformity of the superior endplate of T5 of indeterminate acuity. DATA REPOSITORY: All CT scans at this facility are submitted to the National Radiology Data Registry (NRDR) Dose Index Registry (DIR) with the [employer] (ACR). RADIATION OPTIMIZATION: All CT scans at this facility use at least one of these dose optimization te chniques: automated exposure control; mA and/or kV adjustment per patient size (includes targeted exa ms where dose is matched to clinical indication); or iterative reconstruction.
[2019-05-10] MEDS: Acetaminophen 500 MG TAB 1000 MG PO (19:42)
[2019-05-10] MEDS: Ondansetron O.D.T. 4 MG TABEF (19:43)
--- NOTE | 2019-05-10 19:45 | DI.VRAD_ITS ---
PROCEDURE INFORMATION: Exam: CT Head Without Contrast Exam date and time: 05/10/2019 7:16 PM Age: 78 years old Clinical indication: Injury or trauma; Initial encounter; Blunt trauma (contusions or hematomas); Consciousness not specified; Injury details: Fall, on thinners, hit occipitus TECHNIQUE: Imaging protocol: Computed tomography of the head without contrast. Radiation optimization: All CT scans at this facility use at least one of these dose optimization techniques: automated exposure control; mA and/or kV adjustment per patient size (includes targeted exams where dose is matched to clinical indication); or iterative reconstruction. COMPARISON: CT HEAD WO 07/22/2018 8:10 PM FINDINGS: Brain: Age related brain involution is present. No acute intracranial hemorrhage, mass effect, midline shift, or brain herniation. Diffuse subcortical and periventricular white matter hypodensities are most in favor with chronic small vessel disease. Ventricles: There is ex vacuo ventriculomegaly. Bones/joints: Unremarkable. No acute fracture. Sinuses: There is fluid within the sinuses, consistent with sinusitis. Mastoid air cells: Visualized mastoid air cells are well aerated. Orbits: There have been bilateral intraocular lens replacements. Soft tissues: Right parietal scalp soft tissue swelling. IMPRESSION: 1. Negative for acute intracranial pathology. 2. Right parietal scalp posttraumatic soft tissue swelling. PROCEDURE INFORMATION: Exam: CT Cervical Spine Without Contrast Exam date and time: 05/10/2019 7:16 PM Age: 78 years old Clinical indication: Injury or trauma; Initial encounter; Blunt trauma (contusions or hematomas); Consciousness not specified; Injury details: Fall, on thinners, hit occipitus TECHNIQUE: Imaging protocol: Computed tomography images of the cervical spine without contrast. Radiation optimization: All CT scans at this facility use at least one of these dose optimization techniques: automated exposure control; mA and/or kV adjustment per patient size (includes targeted exams where dose is matched to clinical indication); or iterative reconstruction. COMPARISON: CT HEAD WO 07/22/2018 8:10 PM FINDINGS: Vertebrae: Multilevel degenerative changes of the vertebra are present, as manifested by multilevel anterior osteophytes, endplate sclerosis, and multilevel posterior disc osteophyte complexes. No acutely displaced fracture or dislocation. Discs/Spinal canal/Neural foramina: Spinal canal is patent. Multilevel bony neural foraminal stenosis is suggested. There is multilevel uncovertebral joint hypertrophy. Soft tissues: No acute soft tissue findings. Lungs: Mild scarring in the bilateral lung apices, slightly worse on the right. No acute findings at the lung apices otherwise. IMPRESSION: Multilevel degenerative disease without acute skeletal pathology. Dictated and Authenticated by: Heriberto Carreno MD. Ordering:SHARON Cagle MD
--- NOTE | 2019-05-10 19:50 | DI.VRAD_ITS ---
PROCEDURE INFORMATION: Exam: CT Thoracic Spine Without Contrast Exam date and time: 05/10/2019 7:21 PM Age: 78 years old Clinical indication: Injury or trauma; Initial encounter; Blunt trauma (contusions or hematomas); Injury details: Hit upper thoracic spine, fall TECHNIQUE: Imaging protocol: Computed tomography images of the thoracic spine without contrast. Radiation optimization: All CT scans at this facility use at least one of these dose optimization techniques: automated exposure control; mA and/or kV adjustment per patient size (includes targeted exams where dose is matched to clinical indication); or iterative reconstruction. COMPARISON: No relevant prior studies available. FINDINGS: Vertebrae: There is a compression fracture at L1 with greater than 50% loss in vertebral body height which is chronic in etiology. There is a mild superior endplate compression fracture at T7 which has significant sclerosis and is most probably chronic in etiology. No acutely displaced fractures are otherwise appreciated. Moderate multilevel degenerative changes of the spine, as manifested by multilevel anterior osteophytes and multilevel decrease in intervertebral disc space. Discs/Spinal canal/Neural foramina: Spinal canal appears patent. Mild multilevel bony neural foraminal stenosis is suggested. Soft tissues: No acute findings. Vasculature: The pulmonary arteries demonstrate mild central enlargement, consistent with mild pulmonary hypertension. Lungs: Mild scarring in the bilateral upper lobes with associated atelectasis. No acute interstitial or airspace disease is grossly noted. Heart: The heart is markedly enlarged. There is calcification of the mitral valve annulus. There is calcification of the aortic valve annulus. There is severe atherosclerotic calcification of the coronary arteries. No pericardial thickening or effusion. Other findings: The visualized intra-abdominal structures demonstrate no acute findings. IMPRESSION: 1. Mild superior endplate compression injury at T7 with approximately 15% loss in vertebral body height appears to be chronic in etiology. Consider MRI correlation if there is concern for subacute injury at this level. 2. Chronic severe compression injury at L1 with greater than 50% loss in vertebral body height. 3. No other acutely displaced fractures are appreciated. 4. Moderate multilevel degenerative disease, as detailed above. 5. Other chronic findings as detailed above. Dictated and Authenticated by: Heriberto Carreno MD. Ordering:SHARON Cagle MD
--- NOTE | 2019-05-10 19:52 | DI.VRAD_ITS ---
PROCEDURE INFORMATION: Exam: XR Right Hip with Pelvis when Performed Exam date and time: 05/10/2019 7:28 PM Age: 78 years old Clinical indication: Injury or trauma; Initial encounter; Blunt trauma (contusions or hematomas); Bilateral; Injury details: Bilat hip pain S/P fall TECHNIQUE: Imaging protocol: XR Right hip with pelvis when performed. Views: 2 or 3 views. COMPARISON: No relevant prior studies available. 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 No acutely displaced fractures are grossly appreciated. No dislocation. No aggressive osseous lesions. Soft tissues: No acute soft tissue findings. Intraperitoneal space: Tubal ligation clips suggested in the pelvis. IMPRESSION: 1. Negative for acute skeletal pathology. 2. Incidental/chronic findings as above. Dictated and Authenticated by: Heriberto Carreno MD. Ordering:SHARON Cagle MD
== END 2019-05-10 20:25 | disposition home or self-care (01) ==
LOC: ER 20:25
PROVIDERS: Emergency Provider Student in an Organized Health Care Education/Training Program; PCP Family Medicine
DX: S00.03XA Contusion of scalp, initial encounter (principal); W01.198A Fall on same level from slipping, tripping and stumbling with subsequent striking against other object, initial encounter; M54.2 Cervicalgia; R51 Headache; E11.22 Type 2 diabetes mellitus with diabetic chronic kidney disease; Z79.4 Long term (current) use of insulin; N18.3 Chronic kidney disease, stage 3 (moderate)
CPT/HCPCS: 73521; 99284; 70450; 72125; 72128; 99285

== ENCOUNTER 2019-11-08 21:19 | Outpatient (REF) | payer MEDICARE, MEDICAID, SELFPAY ==
[2019-11-08 21:35] LABS: Bilirubin Negative (Negative); Blood Trace-intact (Negative); Clarity Cloudy (Clear); Glucose Negative (Negative); Ketones Negative (Negative); Leukocyte Esterase Large (Negative); Nitrite Negative (Negative); Urobilinogen 0.2 EU/dL (Up TO 0.2); pH 5.5 (5-8)
[2019-11-08 21:47] LABS: Bacteria Packed HPF (Negative); C & S Indicated? Yes; Crystals Negative HPF (Negative); Epithelial Cells Few HPF (Negative); Mucus Negative (Negative); RBC 0-2 HPF (0-2); WBC >50 HPF (0-5)
== END 2019-11-08 21:39 ==
LOC: LBN 21:19
PROVIDERS: PCP Family Medicine; Visit Provider Family Medicine
DX: R30.0 Dysuria (principal)
CPT/HCPCS: 87077; 81003; 81015; 87086; 87186

== ENCOUNTER 2019-12-02 14:03 | Inpatient (IN) | payer MEDICARE, MEDICAID, SELFPAY ==
[2019-12-02 14:14] VITALS: BP 129/58; PULSE 66; RESP 16; TEMP 36.3; O2SAT 92
--- NOTE | 2019-12-02 14:30 | RT.EKG_ITS ---
APPROVED REPORT Exam: Resting ECG Patient Location: E HR:59 bpm ECG Measurements Heart Rate 59 AXIS NH 170 P 28 QRSd 110 QRS 31 QT 467 T 43 QTc 461 Conclusion Sinus bradycardia...rate< 60 Ventricular premature complex...V complex w/ short R-R interval Aberrant conduction of SV complex(es)...aberrant shape, NH 80-220
--- NOTE | 2019-12-02 15:00 | DI.RAD_ITS ---
EXAM: XR CHEST 2V PA LATERAL CLINICAL HISTORY: shortness of breath, ?chf TECHNIQUE: 2D digital imaging was performed. COMPARISON: CR CHEST ONE VIEW IN RAD DEPT from 10/09/2017 CR XR CHEST 2V PA LATERAL from 07/22/2018 FINDINGS: Exam is limited by lack of pulmonary inflation and patient positioning as well as patient body habitu s.. The heart is enlarged. Patient is status post CABG. There are mildly increased interstitial ma rkings which could indicate mild pulmonary edema versus chronic changes. No focal infiltrate or effu mikhail is seen. IMPRESSION: Limited exam. Question of mild pulmonary edema.
--- NOTE | 2019-12-02 15:00 | W.ED.GENAD ---
Discharge Plan Disposition Patient Disposition: [facility] INPATIENT Condition: Stable Discharge Details Chief Complaint: SOB Clinical Impression: CHF (congestive heart failure), Pneumonia Primary Care Provider: Perry Graham ED Provider: Guzman Cheek Home Meds and New Rx's Prescriptions: No Action cyanocobalamin (vitamin B-12) [Vitamin B-12] 1,000 MCG tablet 1,000 mcg PO DAILY RF: 0 atorvastatin [Lipitor] 40 MG tablet 20 mg PO DAILY AM RF: 0 Brilinta 90 MG tablet 90 mg PO BID RF: 0 amlodipine 10 MG tablet 5 mg PO DAILY RF: 0 nitroglycerin [Nitrostat] 0.4 MG tablet, sublingual 1 tab Sublingual PRN PRNRF: 0 pramipexole [Mirapex] 1 mg Tablet 1 mg PO BID RF: 0 dicyclomine [Bentyl] 10 mg/mL Solution 20 mg Q6H PRNRF: 0 sucralfate [Carafate] 1 gram Tablet 1 g PO DIRECTED RF: 0 lidocaine 5 % Adhesive Patch,Medicated 1 patch TOPICAL DAILY PRNRF: 0 furosemide 20 mg Tablet 40 mg PO DAILY RF: 0 fluticasone propion-salmeterol [Advair Diskus] 100-50 mcg/dose Blister With Device 1 puff INHALATION Q12H RF: 0 polyethylene glycol 3350 17 gram Powder In Packet 17 g PO DAILY Qty: 0 RF: 0 tramadol 50 MG tablet 50 mg PO TID PRN (Reason: Back Pain) Qty: 9 RF: 0 magnesium oxide 400 MG tablet 400 mg PO DAILY Qty: 60 RF: 0 gabapentin 300 MG capsule 200 mg PO TID Qty: 0 RF: 0 fentanyl 12 MCG patch 72 hour 25 mcg Transdermal Q72H Qty: 2 RF: 0 Bystolic 20 MG tablet 10 mg PO DAILY Qty: 0 RF: 0 ferrous gluconate 324 mg (37.5 mg iron) Tablet 324 mg PO BID RF: 0 omeprazole 20 MG capsule,delayed release(DR/EC) 40 mg PO BID@729,1999 RF: 0 sertraline 100 MG tablet 200 mg PO DAILY RF: 0 levalbuterol tartrate [Xopenex HFA] 200 PUFF HFA aerosol inhaler 1 - 2 puff Inhalation Q4H PRN PRNRF: 0 cholecalciferol (vitamin D3) 1,000 UNITS tablet 2,000 units PO DAILY RF: 0 coenzyme [id number] [Co Q-10 (with Vit E)] 1 EACH capsule 1 ea PO DAILY RF: 0 levothyroxine [Synthroid] 150 MCG tablet 150 mcg PO DAILY AM RF: 0 spironolactone 25 MG tablet 25 mg PO DAILY AM RF: 0 Medical Decision Making 79 yo female with multiple medical problems including cad, chf, t2dm who comes in with complaints of several days of increased lower leg swelling and some mild dyspnea with exertion. Denies any chest pressure, fevers, vomit, abdominal pain. States she was hospialized within the last month or so and was at [facility] for this. She was advised anytime her weight goes up or she notices increased swelling to go to the hospital so came here today. She arrives HD stable on NC o2 which she uses at home. She has no significant respiratory distress laying in bed. Does have lower extremity edema, and crackles at the bases of her lungs bialterally. Suspect chf vs anemia among other pathoogies, will obtain lab work and cxr to evaluate for infiltrates vs edema. No calf pain, tachycardia or pleuritic chest pain so doubt PE at this time. records from [facility] shows she was admitted and d/c'd begining of this month for chf exacerbation treated with iv diuresis, on d/c was on torsemide 40mg and spironolactone 25mg and has chronic abodminal discomfort and lymphadenopathy for which she is follow by hem onc due to her prior hx of b cell lymphome, awaiting labs and imaging she remains hd stable xray shows possible multifocal pna and mild pulmonary edema, she is very dyspneic and weak with any type of movement, discussed with hospitalist who will admit given her findings and symptoms Differential Diagnosis Differential Diagnosis: chf, pna, anemia, copd Medical Records Medical records reviewed: Yes I reviewed the patient's medical records. Imaging Data Radiologic Study: Attestation: I personally reviewed and interpreted this imaging study as follows: Imaging: X-Ray Radiologist's impression: IMPRESSION: 1. Findings concerning for multifocal pneumonia. 2. Mild pulmonary edema. Thank you for allowing us to participate Lab Data Lab results reviewed: Yes I reviewed the patient's lab results. ECG Data Attestation: I personally reviewed and interpreted this ECG (s) as follows: Prior ECG tracings: not available for review Interpretation: sinus rhythm, rate of 609, pr 170, qtc 461 HPI General Mode of arrival: wheelchair. Date/Time Provider Initiated Documentation: 12/02/19 14:03. Limitations to Documentation: no limitations. Information obtained by: patient. History of Present Illness 79 year old F presents to the emergency department with the chief complaint of swollen legs, described as moderate, No relieving factors improve symptom(s), No exacerbating factors reported . Patient did receive the following treatments prior to arrival, none Related Data Home Medications Medication Instructions Recorded Confirmed cyanocobalamin (vitamin B-12) 1,000 mcg PO DAILY 07/05/12 12/02/19 [Vitamin B-12] Brilinta 90 mg PO BID 03/11/13 12/02/19 atorvastatin [Lipitor] 20 mg PO DAILY AM 03/11/13 12/02/19 amlodipine 5 mg PO DAILY 06/27/14 12/02/19 nitroglycerin [Nitrostat] 1 tab SUBLINGUAL PRN PRN 06/27/14 12/02/19 omeprazole 40 mg PO BID@0730,199904/01/16 12/02/19 sertraline 200 mg PO DAILY 05/17/16 12/02/19 levalbuterol tartrate [Xopenex HFA] 1 - 2 puff INHALATION Q4H PRN PRN 05/18/16 07/22/18 inh cholecalciferol (vitamin D3) 2,000 units PO DAILY 10/08/16 12/02/19 coenzyme [id number] [Co Q-10 1 ea PO DAILY 05/24/17 12/02/19 (with Vit E)] levothyroxine [Synthroid] 150 mcg PO DAILY AM 10/09/17 12/02/19 spironolactone 25 mg PO DAILY AM 10/09/17 12/02/19 dicyclomine [Bentyl] 20 mg Q6H PRN 03/05/18 12/02/19 fluticasone propion-salmeterol 1 puff INHALATION Q12H 03/05/18 12/02/19 [Advair Diskus] furosemide 40 mg PO DAILY 03/05/18 12/02/19 lidocaine 1 patch TOPICAL DAILY PRN 03/05/18 12/02/19 pramipexole [Mirapex] 1 mg PO BID 03/05/18 12/02/19 sucralfate [Carafate] 1 g PO DIRECTED 03/05/18 12/02/19 Bystolic 10 mg PO DAILY #0 tab 03/08/18 12/02/19 fentanyl 25 mcg TRANSDERMAL Q72H #2 ea 03/08/18 12/02/19 gabapentin 200 mg PO TID #0 cap 03/08/18 12/02/19 magnesium oxide 400 mg PO DAILY #60 tab 03/08/18 12/02/19 polyethylene glycol 3350 17 g PO DAILY #0 ea 03/08/18 12/02/19 tramadol 50 mg PO TID PRN #9 tab 03/08/18 12/02/19 ferrous gluconate 324 mg PO BID 07/22/18 12/02/19 Previous Rx's Medication Instructions Recorded levalbuterol tartrate [Xopenex HFA] 1 - 2 puff INHALATION Q4H PRN PRN 05/18/16 inh Bystolic 10 mg PO DAILY #0 tab 03/08/18 fentanyl 25 mcg TRANSDERMAL Q72H #2 ea 03/08/18 gabapentin 200 mg PO TID #0 cap 03/08/18 magnesium oxide 400 mg PO DAILY #60 tab 03/08/18 polyethylene glycol 3350 17 g PO DAILY #0 ea 03/08/18 tramadol 50 mg PO TID PRN #9 tab 03/08/18 Allergies Allergy/AdvReac Type Severity Reaction Status Date / Time aspirin Allergy Severe Anaphylaxsi Unverified 12/02/19 14:18 s morphine Allergy Intermediate Skin Rash Unverified 12/02/19 14:18 NSAIDS (Non-Steroidal Allergy Intermediate Skin Rash Unverified 12/02/19 14:18 Anti-Inflamma Sulfa (Sulfonamide Allergy Intermediate Skin Rash Unverified 12/02/19 14:18 Antibiotics) Quinidine-Quinine Analogues AdvReac Intermediate high fever Unverified 12/02/19 14:18 (Cincho tetanus and diphtheria AdvReac Intermediate Swelling/Ed Unverified 12/02/19 14:18 toxoids rachel [Tetanus&Diphtheria Toxoid] NADIYA Inhibitors AdvReac Mild cough Unverified 12/02/19 14:18 General Stated Complaint: SOB ELISE: 3 Review of Systems All systems reviewed & are unremarkable except as noted in HPI and below Constitutional Constitutional: Denies chills and Denies fever(s) Respiratory Respiratory: Denies cough Gastrointestinal Gastrointestinal: Denies abdominal pain, Denies nausea and Denies vomiting Genitourinary Genitourinary: Denies dysuria PFS Medical History Acute prerenal azotemia Anemia Anxiety Aortic stenosis, moderate (~07/2017) Asthma Chronic hypoxemic respiratory failure and patient is on 2 liters of oxygen chronically at rest and 3 liters with exertion. CAD (coronary artery disease) CABG approximately ten years ago; recently cardiac cath with single stent placement on inferior portion of heart down at [facility]. Dr. Navarro follows patient. Cholelithiasis without cholecystitis CKD (chronic kidney disease), stage III Baseline creatine 1.1 to 1.3 Compression fracture of L1 lumbar vertebra (~07/2017) Decreased performance of ADLs Decubital ulcer Falls frequently Frailty syndrome in geriatric patient Goals of care, counseling/discussion Hx of CABG (~2000) 2000 Hypothyroidism Low back pain LVH (left ventricular hypertrophy) Morbid obesity Open wound of scapular region without complication Palliative care patient Peripheral vascular disease Polymyalgia rheumatica Pulmonary embolism PVD (peripheral vascular disease) Type 2 diabetes mellitus On insulin. 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 Prior to that was living with her daughter from December 2017 until 03/03/2018. She was at a detention in [place] prior to moving in with her daughter. NEVER wants to go to a detention again. Never wants to go to [facility]. Exam Const General: no acute distress Orientation: alert HENAR Head: normal to inspection Ears: external ears normal General nose exam: external nose normal Mouth: moist mucous membranes Eyes General: appearance normal, both eyes and all related structures Neck Neck: normal visual inspection Resp Effort & Inspection: normal respiratory effort and able to speak in complete sentences Cardio Rate: regular rate Skin General skin exam: no rashes or lesions noted Neuro General: patient alert and patient oriented x3 Extrem General: pedal edema Psych Mental Status: mental status grossly normal Course Vital Signs Vital signs: Vital Signs Temperature 36.3 C L 12/02/19 14:14 Pulse 66 12/02/19 14:14 Respiratory Rate 16 12/02/19 14:14 Blood Pressure 129/58 L 12/02/19 14:14 Pulse Oximetry 92 12/02/19 14:14 Temperature 36.3 C L 12/02/19 14:14 Temperature Source Skin 12/02/19 14:14 Pulse 66 12/02/19 14:14 Respiratory Rate 16 12/02/19 14:14 Respiratory Effort Non-Labored 12/02/19 14:14 Blood Pressure 129/58 L 12/02/19 14:14 Blood Pressure Position Sitting 12/02/19 14:14 Pulse Oximetry 92 12/02/19 14:14 Oxygen Delivery Method Room Air 12/02/19 14:14 Oxygen Flow Rate 0 12/02/19 14:14 Pain Level 8 12/02/19 14:14
[2019-12-02 15:16] VITALS: RESP 16
[2019-12-02 15:18] LABS: Abs Immature Grans 0.09 10^3/uL (0.0-0.06); Absolute Basophil Count 0.02 10^3/uL (0.0-0.2); Absolute Eosinophil Count 0.09 10^3/uL (0.0-0.7); Absolute Lymphocyte Count 0.48 10^3/uL (1.2-3.4); Absolute Monocyte Count 0.38 10^3/uL (0.1-0.8); Absolute Neutrophil Count 6.21 10^3/uL (1.2-6.7); Basophils % 0.3; Eosinophils % 1.2; HCT 29.4 % (36.0-46.0); HGB 9.2 g/dL (11.2-15.7); Immature Grans % 1.2; Lymphocytes % 6.6; MCH 27.3 pg (27.0-33.0); MCHC 31.3 % (32.0-36.0); MCV 87.2 fL (80-95); MPV 9.3 fL (8.0-11.0); Monocytes % 5.2; Neutrophils % 85.5; Nucleated RBC 0 %; Platelet Count 136 10^3/uL (130-400); RBC 3.37 10^6/uL (3.93-5.22); RDW 15.9 % (11.7-14.6); RDW-SD 51.4 fL; WBC 7.27 10^3/uL (4.4-10.8)
[2019-12-02 15:43] LABS: ALT 25 U/L (14-59); AST 22 U/L (15-37); Albumin 2.9 g/dL (3.4-5.0); Alkaline Phosphatase 81 U/L (46-116); Anion Gap 7.2 mmol/L (3-11); BUN 33 mg/dL (7-18); Bilirubin, Total 0.3 mg/dL (0.2-1.0); CO2 29.8 mmol/L (21.0-32.0); CREATININE 1.48 mg/dL (0.55-1.02); Calcium 8.6 mg/dL (8.5-10.1); Chloride 103 mmol/L (98-107); Estimated GFR 34.02 (mL/min/1.73m2); Glucose 202 mg/dL (74-106); Magnesium 1.8 mg/dL (1.8-2.4); NT-proBNP 3135 pg/mL (<300); Potassium 3.4 mmol/L (3.5-5.1); Sodium 140 mmol/L (136-145); Total Protein 6.7 g/dL (6.4-8.2)
[2019-12-02 15:44] LABS: Troponin I < 0.05 ng/mL (<0.06)
--- NOTE | 2019-12-02 16:17 | DI.VRAD_ITS ---
PROCEDURE INFORMATION: Exam: XR Chest, 2 Views Exam date and time: 12/02/2019 4:02 PM Age: 79 years old Clinical indication: Shortness of breath; Patient HX: SOB, ? chf TECHNIQUE: Imaging protocol: XR of the chest Views: 2 views. COMPARISON: CR XR CHEST 2V PA LATERAL 07/22/2018 8:28 PM FINDINGS: Lungs: Pulmonary vascular prominence. Ill-defined retrocardiac opacity. Suspected opacification of the right middle lobe on the lateral projection. Pleural space: No pneumothorax. Heart/Mediastinum: Cardiac silhouette is mildly enlarged. Bones/joints: Stable bony structures. Other findings: Redemonstrated surgical changes project over the chest. IMPRESSION: 1. Findings concerning for multifocal pneumonia. 2. Mild pulmonary edema. Dictated and Authenticated by: Maximus Varela MD. Ordering:SHELIA Hinds MD
[2019-12-02] MEDS: Furosemide 100 MG/10 ML VIAL 80 MG IVP (16:43)
[2019-12-02 16:44] VITALS: BP 133/72; PULSE 72; RESP 16; TEMP 36.4; O2SAT 94
--- NOTE | 2019-12-02 18:07 | HPE_ITS ---
Date of service: 12/02/19 Time of Service: 18:07 Assessment and Plan Assessment and plan (1) CHF (congestive heart failure): Status: Chronic Assessment and plan: Exacerbation of CHF. Precipitant may have been dietary indiscretion. Report of CP certainly noted but EKG reassuring at this point given duration of symptoms. Will certainly trend troponins. I do not see case for pneumonia here and would not see need to continue antibiotics. Will await response to Lasix pending any further interventions. Reviewed ADs, requests Full Code. History of Present Illness History of Present Illness Chief Complaint: SOB Narrative: 79 female with h/o CHF, CAD, DM -- in [facility] recently with exacerbation CHF, had some med change but does not know what it was. In any case reports she had Somali food four days ago and since has had increasing SOB and pedal edema. Denies orthopnea. Denied CP to ER but tells me she has had a pressure in her chest for > 24 hours. In ER findings of note for lack of fever or leukocytosis, BNP > 3000 and CXR read as possibly multifocal pneumonitis, but to my read looks like CHF. Given 80 Lasix IV and ordered for Vanco/Zosyn. Initial EKG shows no acute STTWC's and troponin #1 negative. Admitted for further management. Review of Systems All systems reviewed & are unremarkable except as noted in HPI and below PFSH Medical History Acute prerenal azotemia Anemia Anxiety Aortic stenosis, moderate (~07/2017) Asthma Chronic hypoxemic respiratory failure and patient is on 2 liters of oxygen chronically at rest and 3 liters with exertion. CAD (coronary artery disease) CABG approximately ten years ago; recently cardiac cath with single stent placement on inferior portion of heart down at [facility]. Dr. Navarro follows patient. Cholelithiasis without cholecystitis CKD (chronic kidney disease), stage III Baseline creatine 1.1 to 1.3 Compression fracture of L1 lumbar vertebra (~07/2017) Decreased performance of ADLs Decubital ulcer Falls frequently Frailty syndrome in geriatric patient Goals of care, counseling/discussion Hx of CABG (~2000) 2000 Hypothyroidism Low back pain LVH (left ventricular hypertrophy) Morbid obesity Open wound of scapular region without complication Palliative care patient Peripheral vascular disease Polymyalgia rheumatica Pulmonary embolism PVD (peripheral vascular disease) Type 2 diabetes mellitus On insulin. 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 Prior to that was living with her daughter from December 2017 until 03/03/2018. She was at a prison in [place] prior to moving in with her daughter. NEVER w ants to go to a prison again. Never wants to go to [facility]. Meds Home Medications and Allergies Home Medications Medication Instructions Recorded Confirmed Type cyanocobalamin (vitamin B-12) 1,000 mcg PO DAILY 07/05/12 12/02/19 History [Vitamin B-12] Brilinta 90 mg PO BID 03/11/13 12/02/19 History atorvastatin [Lipitor] 20 mg PO DAILY AM 03/11/13 12/02/19 History amlodipine 5 mg PO DAILY 06/27/14 12/02/19 History nitroglycerin [Nitrostat] 1 tab SUBLINGUAL PRN PRN 06/27/14 12/02/19 History omeprazole 40 mg PO BID@0730,199904/01/16 12/02/19 History sertraline 200 mg PO DAILY 05/17/16 12/02/19 History levalbuterol tartrate [Xopenex HFA] 1 - 2 puff INHALATION Q4H PRN PRN 05/18/16 07/22/18 Rx inh cholecalciferol (vitamin D3) 2,000 units PO DAILY 10/08/16 12/02/19 History coenzyme [id number] E [Co Q-10 1 ea PO DAILY 05/24/17 12/02/19 History (with Vit E)] levothyroxine [Synthroid] 150 mcg PO DAILY AM 10/09/17 12/02/19 History spironolactone 25 mg PO DAILY AM 10/09/17 12/02/19 History dicyclomine [Bentyl] 20 mg Q6H PRN 03/05/18 12/02/19 History fluticasone propion-salmeterol 1 puff INHALATION Q12H 03/05/18 12/02/19 History [Advair Diskus] furosemide 40 mg PO DAILY 03/05/18 12/02/19 History lidocaine 1 patch TOPICAL DAILY PRN 03/05/18 12/02/19 History pramipexole [Mirapex] 1 mg PO BID 03/05/18 12/02/19 History sucralfate [Carafate] 1 g PO DIRECTED 03/05/18 12/02/19 History Bystolic 10 mg PO DAILY #0 tab 03/08/18 12/02/19 Rx fentanyl 25 mcg TRANSDERMAL Q72H #2 ea 03/08/18 12/02/19 Rx gabapentin 200 mg PO TID #0 cap 03/08/18 12/02/19 Rx magnesium oxide 400 mg PO DAILY #60 tab 03/08/18 12/02/19 Rx polyethylene glycol 3350 17 g PO DAILY #0 ea 03/08/18 12/02/19 Rx tramadol 50 mg PO TID PRN #9 tab 03/08/18 12/02/19 Rx ferrous gluconate 324 mg PO BID 07/22/18 12/02/19 History Allergies Allergy/AdvReac Type Severity Reaction Status Date / Time aspirin Allergy Severe Anaphylaxsi Unverified 12/02/19 14:18 s morphine Allergy Intermediate Skin Rash Unverified 12/02/19 14:18 NSAIDS (Non-Steroidal Allergy Intermediate Skin Rash Unverified 12/02/19 14:18 Anti-Inflamma Sulfa (Sulfonamide Allergy Intermediate Skin Rash Unverified 12/02/19 14:18 Antibiotics) Quinidine-Quinine Analogues AdvReac Intermediate high fever Unverified 12/02/19 14:18 (Cincho tetanus and diphtheria AdvReac Intermediate Swelling/Ed Unverified 12/02/19 14:18 toxoids rachel [Tetanus&Diphtheria Toxoid] NADIYA Inhibitors AdvReac Mild cough Unverified 12/02/19 14:18 Exam Narrative Exam Narrative: 133/72, 72, 367.4, 16, 94% RA. HEENT atraumatic; neck supple, cannot read JVP, carotids w/o delay; heart RRR with 2/6 sys murmur LUSB to jug notch; abdomen soft and NT; extremities 1+ pedal edema with stasis changes; neuro Ox3, moves all 4s Results Labs Result diagrams: 12/02/19 15:14 12/02/19 15:14 Labs: Laboratory Results - last 24 hr 12/02/19 12/02/19 15:14 15:14 WBC 7.27 RBC 3.37 L Hgb 9.2 L Hct 29.4 L MCV 87.2 MCH 27.3 MCHC 31.3 L RDW 15.9 H Plt Count 136 MPV 9.3 Immature Gran % 1.2 Neutrophils % 85.5 Lymphocytes % 6.6 Monocytes % 5.2 Eosinophils % 1.2 Basophils % 0.3 Nucleated RBC % 0 Absolute Neutrophils 6.21 Absolute Lymphocytes 0.48 L Absolute Monocytes 0.38 Absolute Eosinophils 0.09 Absolute Basophils 0.02 Sodium 140 Potassium 3.4 L Chloride 103 Carbon Dioxide 29.8 Anion Gap 7.2 BUN 33 H Creatinine 1.48 H Estimated GFR/1.73 m2 34.02 Glucose 202 H Calcium 8.6 Magnesium 1.8 Total Bilirubin 0.3 AST 22 ALT 25 Alkaline Phosphatase 81 Troponin I < 0.05 NT-Pro-B Natriuret Pep 3135 H Total Protein 6.7 Albumin 2.9 L Last Vital Signs Temp 36.4 C L 12/02/19 16:44 Pulse 72 12/02/19 16:44 Resp 16 09/28/20 16:44 BP 133/72 12/02/19 16:44 Pulse Ox 94 12/02/19 16:44 COVID-19 Screening Have you,or household,traveled outside [place] in last 14 days?: No Had IN PERSON contact w/suspected or confirmed C-19 person: No
[2019-12-02 18:25] LABS: Troponin I < 0.05 ng/mL (<0.06)
--- NOTE | 2019-12-02 18:44 | NUR.NOTE ---
Nursing Note: Per MD Cheek, repeat EKG not indicated at this time.
[2019-12-02 19:35] VITALS: BP 154/54; PULSE 64; RESP 17; TEMP 36.7; O2SAT 98
[2019-12-02] MEDS: VANCOMYCIN 1,000 MG in Normal Saline 250 ML 166.6666 MG IVPB (19:49)
--- NOTE | 2019-12-02 19:50 | NUR.NOTE ---
Nursing Note: Patient cleansed of urine incontinence prior to going up to admit floor. Brief saturated. Also of note 12mcg/hr fentanyl patch noted to right posterior shoulder. Update provided to Leena CHRISTOPHER on Med/Surg.
[2019-12-02 20:11] VITALS: BP 178/48; PULSE 60; RESP 18; TEMP 36.4; O2SAT 100
[2019-12-02] MEDS: Gabapentin 300 MG CAP 200 MG PO (20:55)
[2019-12-02] MEDS: Omeprazole 20 MG CAPCR 40 MG PO (20:56)
[2019-12-02] MEDS: Ferrous Gluconate 324 MG TAB PO (20:56)
[2019-12-02] MEDS: Pramipexole 0.5 MG TAB 1 MG PO (20:57)
[2019-12-02] MEDS: Ticagrelor 90 MG TAB PO (21:54)
[2019-12-02] MEDS: fentaNYL 12 MCG PATCH TD (22:46)
[2019-12-03] MEDS: Levothyroxine 150 MCG TAB PO (06:17)
[2019-12-03] MEDS: Omeprazole 20 MG CAPCR 40 MG PO ×2 (06:17→21:03)
[2019-12-03 07:47] LABS: Anion Gap 8.4 mmol/L (3-11); BUN 32 mg/dL (7-18); CO2 30.6 mmol/L (21.0-32.0); CREATININE 1.39 mg/dL (0.55-1.02); Calcium 8.8 mg/dL (8.5-10.1); Chloride 106 mmol/L (98-107); Estimated GFR 36.57 (mL/min/1.73m2); Glucose 104 mg/dL (74-106); NT-proBNP 3652 pg/mL (<300); Potassium 3.2 mmol/L (3.5-5.1); Sodium 145 mmol/L (136-145); Troponin I < 0.05 ng/mL (<0.06)
[2019-12-03] MEDS: Budesonide/Formoterol 80/4.5 6.9 GM 60 PUFF INH IH ×2 (08:08→21:03)
[2019-12-03] MEDS: Furosemide 100 MG/10 ML VIAL 80 MG IVP ×2 (09:03→15:40)
[2019-12-03] MEDS: Normal Saline Flush 10 ML SYR IVP ×3 (09:05→21:12)
[2019-12-03] MEDS: Polyethylene Glycol 3350 17 GM PACKET PO (09:05)
[2019-12-03] MEDS: Atorvastatin 40 MG TAB 20 MG PO (09:06)
[2019-12-03] MEDS: Ferrous Gluconate 324 MG TAB PO (09:09)
[2019-12-03] MEDS: Magnesium Oxide 400 MG TAB PO (09:10)
[2019-12-03] MEDS: Pramipexole 0.5 MG TAB 1 MG PO (09:10)
[2019-12-03] MEDS: amLODIPine 10 MG TAB 5 MG PO (09:11)
[2019-12-03] MEDS: Ticagrelor 90 MG TAB PO ×2 (09:11→21:03)
[2019-12-03] MEDS: Sertraline 50 MG TAB 200 MG PO (09:12)
[2019-12-03] MEDS: Spironolactone 25 MG TAB PO (09:12)
[2019-12-03] MEDS: Gabapentin 100 MG CAP 200 MG PO (09:57)
[2019-12-03] MEDS: Acetaminophen 325 MG TAB 650 MG PO (10:30)
[2019-12-03] MEDS: Potassium Chloride 20 MEQ TABCR 40 MEQ PO (11:00)
[2019-12-03 11:50] LABS: COVID-19 RT-PCR UVMMC Result Negative (Negative)
[2019-12-03] MEDS: predniSONE 10 MG TAB PO (14:10)
[2019-12-03 15:48] VITALS: BP 149/67; PULSE 61; RESP 20; TEMP 36.8; O2SAT 97
--- NOTE | 2019-12-03 16:02 | PDOC.CMIN ---
- If Service Date Differs Date of service: 12/03/19 Time of Service: 16:02 Care Management Initial Assess REASON FOR HOSPITALIZATION:: CHF PAST MEDICAL HISTORY/PAST SURGICAL HISTORY:: Medical History . Acute prerenal azotemia. Anemia. Anxiety. Aortic stenosis, moderate (~07/2017). Asthma. Chronic hypoxemic respiratory failure and patient is on 2 liters of oxygen chronically at rest and 3 liters with exertion. CAD (coronary artery disease). CABG approximately ten years ago; recently cardiac cath with single stent placement on inferior portion of heart down at [facility]. Dr. Navarro follows patient. Cholelithiasis without cholecystitis. CKD (chronic kidney disease), stage III. Baseline creatine 1.1 to 1.3. Compression fracture of L1 lumbar vertebra (~07/2017). Decreased performance of ADLs. Decubital ulcer. Falls frequently. Frailty syndrome in geriatric patient. Goals of care, counseling/discussion. Hx of CABG (~2000). 2000. Hypothyroidism. Low back pain. LVH (left ventricular hypertrophy). Morbid obesity. Open wound of scapular region without complication. Palliative care patient. Peripheral vascular disease. Polymyalgia rheumatica. Pulmonary embolism. PVD (peripheral vascular disease). Type 2 diabetes mellitus. On insulin. Unintentional weight loss. Vascular dementia. Venous stasis dermatitis of both lower extremities. Vitamin B 12 deficiency. Surgical History . S/P CABG x 2 PREVIOUS FUNCTIONAL STATUS/SOCIAL/FAMILY SUPPORTS:: Lucy lives alone in a one level single family home. She has extensive support from [facility] (highest needs-35 hours per week) as well as from her family. There is a relative or caregiver in the home with her almost 24 hours a day. Lucy needs help with ADLs, although she is able to feed herself, do puzzles etc. CURRENT FUNCTIONAL STATUS:: Lucy was sitting up in her chair when CM met with her. She reported that she was feeling better, and that everyone at [facility] has been taking good care of her. She stated that per MD, she would remain overnight for continued lasix, but she would like to return home as soon as possible. She explained how well taken care of she is at home by family and private caregivers. CM will continue to follow. ADVANCE DIRECTIVES:: None on file. Has patient been provided with info about the portal/API?: No Did the patient sign up for the portal?: No CODE STATUS:: Full Code INSURANCE COVERAGE / FINANCIAL ISSUES:: MAL/ MIGUEL CURRENT HOME/COMMUNITY SERVICES/EQUIPMENT:: Lucy currently receives services through [facility], highest needs. She also has Home health nursing and uses a lift recliner, walker, commode and shower chair. PRIMARY CARE PHYSICIAN:: Perry Graham POTENTIAL DISCHARGE NEEDS:: Evaluations for further needs, follow up appointments. PATIENT/FAMILY EDUCATION NEEDS:: Review discharge instructions, discussion of goals of care. ANTICIPATED BARRIERS TO DISCHARGE:: None identified. TRANSPORTATION:: Via private vehicle by family. PLAN:: Anticipate Lucy will return home when medically cleared with a resumption of [facility] highest needs. She will follow up with her PCP and discharge plan of care. She will be driven home via private vehicle by family when ready. CM will continue to follow.
--- NOTE | 2019-12-03 16:50 | W.PM.PROGNOT ---
Date of Service Date of service: 12/03/19 Time of Service: 18:04 Assessment and Plan Assessment and plan (1) Acute on chronic diastolic (congestive) heart failure: Status: Acute Assessment and plan: Continue diuresis. May require lasix gtt. We are trying to clarify exactly what is in the patient's bubble pack/pill box that she is actually taking because there are discrepancies [place] [facility] [place], her pharmacy med list, and PCP med list. (2) Polymyalgia rheumatica: Status: Chronic Assessment and plan: Continue prednsione (3) CAD (coronary artery disease): Status: Chronic Assessment and plan: No evidence of ACS on this admission. (4) Hypothyroidism: Status: Chronic Assessment and plan: Continue synthroid. (5) CKD (chronic kidney disease), stage III: Status: Chronic Assessment and plan: Monitor Cr, I/O's, daily weights while diuresing. Cr near baseline today. (6) Discharge planning issues: Status: Acute Assessment and plan: Full code. Palliative care consulted. (7) DVT prophylaxis: Status: Acute Assessment and plan: lovenox sc Subjective Subjective Interval history since last seen: Ms Vinson states that she is feeling a little better. She still has a sensation of heaviness in her chest and is somewhat short of breath, but overall feels a little better. Denies dizziness, actual chest pain, or nausea. She states she has not urinated as much as she thought she would. Exam Narrative Exam Narrative: General: Very pleasant elderly female, who is napping when I first walked in, easily arousable, A&Ox3 HEENT: EOMI, MMM Heart: RRR, no m/r/g Lungs: Diminished breath sounds B Abdomen: soft, nontender, nondistended Extremities: 1+ BLE edema Objective Last Vital Signs Temp 36.8 C 12/03/19 15:48 Pulse 61 12/03/19 15:48 Resp 20 12/03/19 15:48 BP 149/67 H 12/03/19 15:48 Pulse Ox 97 12/03/19 15:48 Laboratory Results - last 24 hr 12/02/19 12/02/19 12/03/19 17:50 19:42 06:45 Sodium 145 Potassium 3.2 L Chloride 106 Carbon Dioxide 30.6 Anion Gap 8.4 BUN 32 H Creatinine 1.39 H Estimated GFR/1.73 m2 36.57 Glucose 104 D Calcium 8.8 Troponin I < 0.05 < 0.05 NT-Pro-B Natriuret Pep 3652 H COVID-19 PCR Negative Nasopharyn COVID-19 PCR Not Applicable Ref Test Perform Site [facility] lab
[2019-12-03 19:36] VITALS: BP 146/68; PULSE 62; RESP 20; TEMP 37.7; O2SAT 98
[2019-12-03] MEDS: Pramipexole 0.5 MG TAB PO (21:03)
[2019-12-03] MEDS: Enoxaparin 30 MG/0.3 ML SYR SC (21:05)
[2019-12-03 23:28] VITALS: BP 150/70; PULSE 60; RESP 20; TEMP 37.1; O2SAT 97
[2019-12-04 05:49] VITALS: BP 150/73; PULSE 65; RESP 18; TEMP 36.5; O2SAT 99
[2019-12-04] MEDS: Levothyroxine 150 MCG TAB PO (05:56)
[2019-12-04 07:48] LABS: BUN 35 mg/dL (7-18); CREATININE 1.34 mg/dL (0.55-1.02); Calcium 9.1 mg/dL (8.5-10.1); Chloride 104 mmol/L (98-107); Estimated GFR 38.15 (mL/min/1.73m2); Glucose 134 mg/dL (74-106); Magnesium 1.9 mg/dL (1.8-2.4); Potassium 4.3 mmol/L (3.5-5.1); Sodium 141 mmol/L (136-145); TSH (W/Ref FT4) 0.12 uIU/mL (0.36-3.74)
[2019-12-04 07:50] VITALS: BP 169/74; PULSE 78; RESP 19; TEMP 36.6; O2SAT 97
[2019-12-04] MEDS: Budesonide/Formoterol 80/4.5 6.9 GM 60 PUFF INH IH ×2 (08:20→20:47)
[2019-12-04 08:26] LABS: FREE T4 1.26 ng/dL (0.76-1.46)
[2019-12-04] MEDS: Ticagrelor 90 MG TAB PO ×2 (09:06→20:46)
[2019-12-04] MEDS: Spironolactone 25 MG TAB PO (09:06)
[2019-12-04] MEDS: Cyanocobalamin 500 MCG TAB 1000 MCG PO (09:06)
[2019-12-04] MEDS: Cholecalciferol (Vitamin D3) 1,000 UNIT TAB 1000 UNITS PO (09:06)
[2019-12-04] MEDS: predniSONE 10 MG TAB PO (09:07)
[2019-12-04] MEDS: amLODIPine 5 MG TAB PO (09:07)
[2019-12-04] MEDS: SERTRALINE 100 MG TAB 200 MG PO (09:07)
[2019-12-04] MEDS: Pramipexole 0.5 MG TAB PO ×3 (09:07→20:46)
[2019-12-04] MEDS: Lactobacillus Acidophilus CAP 1 CAP PO (09:07)
[2019-12-04] MEDS: Ferrous Gluconate 324 MG TAB PO (09:07)
[2019-12-04] MEDS: Furosemide 100 MG/10 ML VIAL 80 MG IVP (09:08)
[2019-12-04] MEDS: Normal Saline Flush 10 ML SYR IVP ×2 (09:08→11:58)
[2019-12-04] MEDS: Polyethylene Glycol 3350 17 GM PACKET PO (09:08)
[2019-12-04] MEDS: Magnesium Oxide 400 MG TAB PO (09:10)
[2019-12-04] MEDS: Omeprazole 20 MG CAPCR 40 MG PO ×2 (09:10→20:46)
--- NOTE | 2019-12-04 09:17 | IN_ITS ---
Date of service: 12/04/19 Time of Service: 09:17 PT Notes Visit Reasons: Congestive heart failure Physical Therapy Inpatient Initial Evaluation Date: 12/04/2019 Referring Doctor: Johnna Guerrero MD PT Orders: PT CONSULT: Limited ability Precautions: Fall. Standard. Activity as tolerated. On 2.5 L of oxygen via NC. Patient Profile/Admitting Diagnosis: Lucy is a 79-year-old female who presented to the ED on 12/02/2019 with complaints of several days of increased leg swelling and some mild dyspnea with exertion. Patient is diagnosed with congestive heart failure exacerbation with referral to skilled physical therapy services for safety and mobility assessment/management. PMHX: Medical History Acute prerenal azotemia Anemia Anxiety Aortic stenosis, moderate (~07/2017) Asthma Chronic hypoxemic respiratory failure and patient is on 2 liters of oxygen chronically at rest and 3 liters with exertion. CAD (coronary artery disease) CABG approximately ten years ago; recently cardiac cath with single stent placement on inferior portion of heart [place] [facility]. Navarro follows patient. Cholelithiasis without cholecystitis CKD (chronic kidney disease), stage III Baseline creatine 1.1 to 1.3 Compression fracture of L1 lumbar vertebra (~07/2017) Decreased performance of ADLs Decubital ulcer Falls frequently Frailty syndrome in geriatric patient Goals of care, counseling/discussion Hx of CABG (~2000) 2000 Hypothyroidism Low back pain LVH (left ventricular hypertrophy) Morbid obesity Open wound of scapular region without complication Palliative care patient Peripheral vascular disease Polymyalgia rheumatica Pulmonary embolism PVD (peripheral vascular disease) Type 2 diabetes mellitus On insulin. Unintentional weight loss Vascular dementia Venous stasis dermatitis of both lower extremities Vitamin B 12 deficiency Surgical History S/P CABG x 2 Social History/Home Situation: Lives alone but son and daughter live close by who help with meals and groceries. She has a HH aide daily from 8-1 PM for chores and self-care. Independent with all mobility ADL performance using the 4 wheeled walker. Chronically is on 2.5 L of oxygen per minute at night. has a rampt to enter. Equipment Owned/DME: Wheelchair, 4 wheeled walker, oxygen, shower chair Subjective: Reports that she feels a lot better and less out of breath today. Denies headache, dizziness, and chest pain throughout session. Objective: General Observation: Oxygen supplementation via NC. Obese. Mental Status: Alert and oriented x 4 Pain: None reported Vital Signs: Oxygen saturation of 89% through 93% on 2.5 L of oxygen ROM: Right Upper Extremity: Shoulder Flexion WFL. Shoulder abduction WFL. Elbow flexion WFL. Wrist flexion WFL. Opening and closing of hand WFL. Left Upper Extremity: Shoulder Flexion WFL. Shoulder abduction WFL. Elbow flexion WFL. Wrist flexion WFL. Opening and closing of hand WFL. Right Lower Extremity: Hip flexion WFL. Hip abduction WFL. Knee flexion WFL. Ankle dorsiflexion WFL. Ankle plantarflexion WFL. Left Lower Extremity: Hip flexion WFL. Hip abduction WFL. Knee flexion WFL. Ankle dorsiflexion WFL. Ankle plantarflexion WFL. Strength: Right Upper Extremity: Shoulder flexors 4/5. Shoulder abductors 4/5. Elbow flexors 4/5. Elbow extensors 4/5. Tempering Oven Operator strong. Left Upper Extremity: SShoulder flexors 4/5. Shoulder abductors 4/5. Elbow flexors 4/5. Elbow extensors 4/5. Tempering Oven Operator strong. Right Lower Extremity: Hip flexors 4-/5. Hip abductors 4-/5. Knee flexors 4-/5. Knee extensors 4-/5. Ankle dorsiflexors 4-/5. Ankle plantarflexors 4-/5. Left Lower Extremity: Hip flexors 4-/5. Hip abductors 4-/5. Knee flexors 4-/5. Knee extensors 4-/5. Ankle dorsiflexors 4-/5. Ankle plantarflexors 4-/5. Sensation: Intact as to pain and pressure on bilateral lower extremities. Bed Mobility/Transfers: Sit to stand standby assist needs PT to hokd onto 4WW while she pulls up from walker Stand to sit SBA Bed to chair SBA Chair to bed SBA Gait: 30 feet using front wheeled walker for weightbearing requiring standby assist on 3 L of oxygen per minute with no complaint of pain but with mild SOB. Balance: Static Sitting: Normal Dynamic Sitting: Normal Static Standing: Fair Dynamic Standing: Fair Special Tests: Mobility Limitations Standardized Measure [employer] AM-PAC 6 clicks Basic Mobility Inpatient Short Form: Raw Score: 20 CMS Score: 36% deficit Informed Consent/Education: Patient instructed in purpose of PT consult and plan of care. Assessment: Lucy demonstrates functional mobility decline requiring 4 wheeled walker and physical assistance for all mobility ADL performance, generalized weakness, difficulty with walking, decreased activity tolerance, and increased risk for falls due to admitting diagnoses. Lucy is a 79-year-old female who presented to the ED on 12/02/2019 with complaints of several days of increased leg swelling and some mild dyspnea with exertion. Patient is diagnosed with congestive heart failure exacerbation with referral to skilled physical therapy services for safety and mobility assessment/management. Patient presents with clinical signs and symptoms consistent with current/admitting diagnoses that have resulted to mobility limitations, gait instability, generalized weakness, and impairment of motor control as de monstrated by the following impairment level findings: 1. Decreased strength to be UE/LE major muscle groups 2. Impaired sitting/standing balance 3. Impaired activity tolerance Impairments are contributing to the following functional limitations: 1. Dependent bed mobility skills 2. Increased dependence with transfers 3. Inability to safely ambulate without assistive device and physical ass istance 4. Increase completion time for mobility ADL performance 5. Increased fall risk 6. Inability to negotiate steps alone safely Patient is assessed as a 7162 moderate complexity based on the following: History: 79-year-old female with impairment level findings, functional limitations, and past medical history as indicated above Examination: Demonstrable impairment in strength, balance, and mobility level with underlying impairments and functional limitations as documented above Presentation:Evolving Decision Makin moderate complexity Goals: Goals X1 week 1. Supine-Sit independent 2. Sit-Supine independent 3. Sit-Stand independent 4. Stand-Sit independent 5. Bed-Chair supervision 6. Chair-Bed supervision 7. Supervision gait on level surface with use of least restrictive device for at least 300 feet without report of pain nor dyspnea 8. Good static and dynamic standing balance/tolerance Plan of Care/Treatment Plan: 1-2x/day, 7 days/week x 1 week. Plan of care has been reviewed with the QUALITY ENGINEERING MANAGER providing the service under Physical Therapy direction. Initiate Physical Therapy intervention for strengthening, bed mobility, transfers, gait, stairs, balance training, use of assistive device. DISCHARGE RECOMMENDATIONS: Patient will benefit from home health PT services in order to progress mobility level using least restrictive assistive ambulatory device, assess home safety, identify additional equipment needs, and establish a functional maintenance program that will increase ability of patient to remain at home. TREATMENT CODE/TIME: 00139 x 28 minutes beginning at 9:17 AM. Thank you for the opportunity to participate in the care of this patient. Jacki Gonsalves PT, DPT, CLT [facility] [place], [place]
[2019-12-04 11:35] VITALS: BP 148/73; PULSE 70; RESP 21; TEMP 36.7; O2SAT 99
[2019-12-04] MEDS: Acetaminophen 325 MG TAB 650 MG PO (11:56)
--- NOTE | 2019-12-04 13:55 | PHA.REVIEW ---
Pharmacy Admission Review - Admission Clinical Review (Last Reviewed 12/02/19 @ 18:12 by Perry Ray MD) Discharge planning issues (Acute) Acute on chronic diastolic (congestive) heart failure (Acute) Pneumonia (Acute) DVT prophylaxis (Acute) aspirin Allergy (Severe, Unverified 12/02/19 14:18) Anaphylaxsis morphine Allergy (Intermediate, Unverified 12/02/19 14:18) Skin Rash NSAIDS (Non-Steroidal Anti-Inflamma Allergy (Intermediate, Unverified 12/02/19 14:18) Skin Rash Sulfa (Sulfonamide Antibiotics) Allergy (Intermediate, Unverified 12/02/19 14:18) Skin Rash Quinidine-Quinine Analogues (Cincho Adverse Reaction (Intermediate, Unverified 12/02/19 14:18) high fever tetanus and diphtheria toxoids [Tetanus&Diphtheria Toxoid] Adverse Reaction (Intermediate, Unverified 12/02/19 14:18) Swelling/Edema NADIYA Inhibitors Adverse Reaction (Mild, Unverified 12/02/19 14:18) cough Height 5 ft 2 in Weight 82.9 kg CHF - Renal Dosing Renal Dosing: BUN 35 mg/dL (7-18) H 12/04/19 06:25 Creatinine 1.34 mg/dL (0.55-1.02) H 12/04/19 06:25 CrCl~27ml/min Medications needing adjustments: Reviewed (no med adjustments) - Anticoagulation Anticoagulation: Hgb 9.2 g/dL (11.2-15.7) L 12/02/19 15:14 Hct 29.4 % (36.0-46.0) L 12/02/19 15:14 Plt Count 136 10^3/uL (130-400) 12/02/19 15:14 Creatinine 1.34 mg/dL (0.55-1.02) H 12/04/19 06:25 DVT Prohphylaxis: Reviewed Medications: Enoxaparin (Also has Brilinta (anti-platelet) for previous CABG) Therapeutic Anticoagulation: N/A - Opiate Usage Evaluate Pain Scale/Pains Meds: Reviewed (Pain 8/10, Fentanyl 12mcg patch [id number]) Scheduled Bowel Reg ordered if on Opiates?: Yes (Miralax daily) - Relevant Labs Sodium 141 mmol/L (136-145) 12/04/19 06:25 Potassium 4.3 mmol/L (3.5-5.1) D 12/04/19 06:25 Chloride 104 mmol/L (98-107) 12/04/19 06:25 Magnesium 1.9 mg/dL (1.8-2.4) 12/04/19 06:25 Electrolytes, C-Reactive P, ESR: Reviewed (TSH low 0.12, lytes ok) - DM Control DM Control: Glucose 134 mg/dL (74-106) H 12/04/19 06:25 Insulin Dosing: N/A - Heart Failure/NJ Heart Failure/NJ: Troponin I < 0.05 ng/mL (<0.06) 12/03/19 06:45 NT-Pro-B Natriuret Pep 3652 pg/mL (<300) H 12/03/19 06:45 EF%, NADIYA's, B-Blockers, Diuretics: Reviewed (Lasix infusion @ 7.5ml/hr, Amlodipine, Spironolactone) - BP Control BP Control: Blood Pressure 148/73 Blood Pressure 169/74 Blood Pressure 150/73 If elevated: N/A List meds needing interventions: Follow Lasix infusion, weights, I/O - Current meds Current Medication Order Review: Reviewed (Prednisone is for Polymyalgia Rheumatica) - Comments Comments/Follow Ups: Monitor I/O and weight due to Lasix infusion, pain control. Levothyroxine on hold for low TSH level. Palliative care has been involved in patient's care. Family bringing in bubble packed meds to verify what she's been taking at home. CHF exacerbated by non-compliance with diet
[2019-12-04 15:44] VITALS: BP 148/68; PULSE 68; RESP 18; TEMP 36.3; O2SAT 94
--- NOTE | 2019-12-04 15:50 | CHAPLAIN ---
Lucy was visiting with her niece when I stopped in. They seemed to have a pleasant relationship and Lucy was grateful for the company. I explained my role and offered support.
--- NOTE | 2019-12-04 16:16 | CMPROGNOTE_ITS ---
- If Service Date Differs Date of service: 12/04/19 Time of Service: 16:16 Care Management Progress Note S/O: Lucy was sitting up eating her lunch when CM met with her. She reported that she was feeling better today, but not ready for discharge. Per report, there is a question regarding med compliance. Lucy does have HH RN, but may need an increase in services upon discharge. She would like to go home once she is medically ready. A palliative care consult has been placed, and will hopefully see her during this admission to establish care. CM will continue to follow. A: Lucy is a 79 year old female admitted to [facility] on 12/03/19 with CHF. P: Anticipate Lucy will return home once medically cleared with a resumption of HH RN, PT and CFC moderate needs. She may need an increase of services at home, if indicated. She will be driven home via private vehicle by family. She will follow up with her PCP and discharge plan of care. CM will continue to follow.
--- NOTE | 2019-12-04 16:20 | W.PM.PROGNOT ---
Date of Service Date of service: 12/04/19 Time of Service: 16:20 Assessment and Plan Assessment and plan (1) Acute on chronic diastolic (congestive) heart failure: Status: Acute Assessment and plan: Transitioned to lasix gtt. Daughter brought in patient's medication list for us to review. (2) Polymyalgia rheumatica: Status: Chronic Assessment and plan: Continue prednsione (3) CAD (coronary artery disease): Status: Chronic Assessment and plan: No evidence of ACS on this admission. (4) Hypothyroidism: Status: Chronic Assessment and plan: TSH 0.12 - will hold synthroid at this time. (5) CKD (chronic kidney disease), stage III: Status: Chronic Assessment and plan: Monitor Cr, I/O's, daily weights while diuresing. Cr tolerateding diuresis (6) Dysphagia: Status: Acute Assessment and plan: for pills. Patient states she was recommended by GI to see speech therapy in the past, but never saw them. Will consult speech therapy for a swallow eval. (7) Discharge planning issues: Status: Acute Assessment and plan: Full code. Palliative care consulted. (8) DVT prophylaxis: Status: Acute Assessment and plan: lovenox sc Subjective Subjective Interval history since last seen: Ms Vinson states she has not had any chest tightness today. She denies dizziness, chest pain, states her breathing is better and she did not feel short of breath when she walked with PT. She endorses nausea and constipation. She states she has a hard time swallowing pills. Exam Narrative Exam Narrative: General: Very pleasant elderly female, A&Ox3, sitting in a chair, looks better than yesterday HEENT: EOMI, MMM Heart: RRR, no m/r/g Lungs: slight crackles at B bases Abdomen: soft, full, diffusely tender Extremities: 1+ BLE edema with wrinkling; venous stasis dermatitis; overall, looks better Objective Last Vital Signs Temp 36.3 C L 12/04/19 15:44 Pulse 68 12/04/19 15:44 Resp 18 12/04/19 15:44 BP 148/68 H 12/04/19 15:44 Pulse Ox 94 12/04/19 15:44 Laboratory Results - last 24 hr 12/04/19 06:25 Sodium 141 Potassium 4.3 D Chloride 104 Carbon Dioxide 30.0 Anion Gap 7.0 BUN 35 H Creatinine 1.34 H Estimated GFR/1.73 m2 38.15 Glucose 134 H Calcium 9.1 Magnesium 1.9 TSH 0.12 L Free T4 1.26
--- NOTE | 2019-12-04 16:38 | PT.INTREAT ---
Date of service: 12/04/19 Time of Service: 16:39 PT Notes Visit Reasons: Congestive heart failure Inpatient Physical Therapy Treatment Note [facility] Date: 12/04/19 PRECAUTIONS: Fall SUBJECTIVE: Lucy is agreeable to participating in PT. She is hopeful that she will return home tomorrow. OBJECTIVE: PAIN: No c/o pain BED MOBILITY/TRANSFERS Supine-sit: Mod A Sit-stand: SBA Stand-sit: SBA GAIT Assistive Device: 4WW Weight bearing: Full Assist: S Distance: 200' Deviation: 3L O2 via NC, no SOB ASSESSMENT: Patient tolerated session without complaint. She was able to tolerate a progression in gait distance with 4WW support with supervision, and without demonstrating signs of SOB. PLAN: Continue with global strengthening and gait training. TREATMENT CODE/TIME: 25 minutes; 17064 x2
[2019-12-04 19:27] VITALS: BP 137/68; PULSE 62; RESP 17; TEMP 36.4; O2SAT 98
[2019-12-04] MEDS: Enoxaparin 30 MG/0.3 ML SYR SC (20:46)
[2019-12-04] MEDS: Atorvastatin 20 MG TAB PO (22:11)
[2019-12-04] MEDS: fentaNYL 12 MCG PATCH TD (22:11)
[2019-12-04 23:48] VITALS: BP 141/58; PULSE 18; RESP 18; TEMP 36.4; O2SAT 98
[2019-12-05] VITALS (7 sets, daily range): BP systolic 116–186; BP diastolic 60–92; PULSE 63–75; RESP 17–48; TEMP 36.1–37.5; O2SAT 92–98
[2019-12-05 06:54] LABS: Abs Immature Grans 0.11 10^3/uL (0.0-0.06); Absolute Basophil Count 0.03 10^3/uL (0.0-0.2); Absolute Eosinophil Count 0.16 10^3/uL (0.0-0.7); Absolute Lymphocyte Count 1.55 10^3/uL (1.2-3.4); Absolute Monocyte Count 0.58 10^3/uL (0.1-0.8); Absolute Neutrophil Count 6.81 10^3/uL (1.2-6.7); Basophils % 0.3; Eosinophils % 1.7; HCT 29.8 % (36.0-46.0); HGB 9.6 g/dL (11.2-15.7); Immature Grans % 1.2; Lymphocytes % 16.8; MCH 27.1 pg (27.0-33.0); MCHC 32.2 % (32.0-36.0); MCV 84.2 fL (80-95); MPV 9.8 fL (8.0-11.0); Monocytes % 6.3; Neutrophils % 73.7; Nucleated RBC 0 %; Platelet Count 172 10^3/uL (130-400); RBC 3.54 10^6/uL (3.93-5.22); RDW 15.9 % (11.7-14.6); RDW-SD 49.1 fL; WBC 9.24 10^3/uL (4.4-10.8)
[2019-12-05 07:07] LABS: Anion Gap 7.1 mmol/L (3-11); BUN 39 mg/dL (7-18); CO2 33.9 mmol/L (21.0-32.0); CREATININE 1.37 mg/dL (0.55-1.02); Calcium 9.5 mg/dL (8.5-10.1); Chloride 99 mmol/L (98-107); Estimated GFR 37.19 (mL/min/1.73m2); Glucose 141 mg/dL (74-106); Magnesium 1.8 mg/dL (1.8-2.4); Sodium 140 mmol/L (136-145)
[2019-12-05] MEDS: Budesonide/Formoterol 80/4.5 6.9 GM 60 PUFF INH IH ×2 (07:37→19:38)
[2019-12-05] MEDS: Lactobacillus Acidophilus CAP 1 CAP PO (08:06)
[2019-12-05] MEDS: Spironolactone 25 MG TAB PO (08:07)
[2019-12-05] MEDS: Pramipexole 0.5 MG TAB PO ×3 (08:07→19:42)
[2019-12-05] MEDS: Ticagrelor 90 MG TAB PO ×2 (08:07→19:42)
[2019-12-05] MEDS: Cholecalciferol (Vitamin D3) 1,000 UNIT TAB 1000 UNITS PO (08:09)
[2019-12-05] MEDS: Cyanocobalamin 500 MCG TAB 1000 MCG PO (08:09)
[2019-12-05] MEDS: SERTRALINE 100 MG TAB 200 MG PO (08:09)
[2019-12-05] MEDS: Omeprazole 20 MG CAPCR 40 MG PO ×2 (08:09→19:42)
[2019-12-05] MEDS: predniSONE 10 MG TAB PO (08:10)
[2019-12-05] MEDS: Ferrous Gluconate 324 MG TAB PO (08:10)
[2019-12-05] MEDS: amLODIPine 5 MG TAB PO (08:10)
--- NOTE | 2019-12-05 08:54 | STREC_ITS ---
Date of service: 12/05/19 Time of Service: 08:54 Speech Therapy Recommendations Report ST Recommendations: SALES FINANCIAL ANALYST consult order received for concern for pt having difficulty managing pills. SALES FINANCIAL ANALYST contacted [facility] staff and spoke with nurse Anna this morning. Nursing stated that there have been no reports otherwise of pt having difficulty with foods or drinks and that pt managed her entire breakfast without complication this morning. Nursing reports speaking to the pt today who states that she takes her pills whole at home and has no difficulty. Nursing advised to consult with the pt again to learn more about medication consumption at home, particularly regarding how many whole pills pt takes at once. If pt is taking multiple pills at once and/or has difficulty clearing pills, the following modifications can be trialed: 1. Whole, 1 pill at a time with drink 2. Whole, 1 pill at a time in applesauce, pudding, yogurt (puree/pudding texture) 3. Crushed in applesauce, pudding, yogurt (puree/pudding texture) Nursing to trial above strategies today and if further concerns, please update SALES FINANCIAL ANALYST department. Charge Code: 13292-fi charge.
[2019-12-05] MEDS: Magnesium Oxide 400 MG TAB PO (10:55)
[2019-12-05] MEDS: Bumetanide 1 MG TAB 2 MG PO ×2 (10:56→16:02)
--- NOTE | 2019-12-05 12:29 | W.NUTRFU ---
Date of service: 12/05/19 Time of Service: 12:29 Nutritional Follow up NOTE: 79 year old obese woman admitted with CHF, PNA with dysphagia. PMH: CABG x 2 years. VENEER JOINTER OPERATOR consult pending. Currently on Low sodium, regular texture, thin liquids. Nursing reports tolerating but does have coughing at meals. PO intake > 75% of meals. Does not appear to be at nutritional risk at this time. Will continue to follow and monitor. Time Spent in Nutritional Counseling and Treatment: 0 time spent face to face
--- NOTE | 2019-12-05 13:09 | PT.INTREAT ---
Date of service: 12/05/19 Time of Service: 13:09 PT Notes Visit Reasons: Congestive heart failure Inpatient Physical Therapy Treatment Note [facility] Date: 12/05/19 PRECAUTIONS: Fall SUBJECTIVE: Lucy is agreeable to participating in PT. She is not feeling as well as she was yesterday, but she's not sure why. OBJECTIVE: BED MOBILITY/TRANSFERS Supine-sit: Min A Sit-stand: SBA Stand-sit: SBA GAIT Assistive Device: 4WW Weight bearing: Full Assist: SBA in a.m.; S in p.m. Distance: 150' in a.m.; 200' in p.m. Deviation: 3L O2 via NC, increased fatigue, increased SOB, no pain in a.m.; 3L O2 via NC, minimal SOB, c/o L sided flank pain Static standing with 4WW support and supervision x3 minutes. THEREX: Patient was instructed in several UE and LE strengthening exercises, in a seated position, as per flow sheet. Increased B shoulder pain L>R with UE ther ex. ASSESSMENT: Patient tolerated session with complaint of increased fatigue and SOB with gait training in a.m., which appears resolved in p.m. She would benefit from continued global strengthening and gait training for improved activity tolerance and continues progression toward baseline level of function. PLAN: Continue with global strengthening and gait training. TREATMENT CODE/TIME: Session 1: 25 minutes; [id number], [id number] Session 2: 30 minutes; [id number], [id number]
--- NOTE | 2019-12-05 15:14 | PGE_ITS ---
Date of Service Date of service: 12/05/19 Time of Service: 15:14 Assessment and Plan Assessment and plan (1) Acute on chronic diastolic (congestive) heart failure: Status: Acute Assessment and plan: Lasix gtt d/c'ed and started on bumex. Feels better. Will plan for discharge home tomorrow with bumex, home health nursing (consideration for [facility]), daily weights. (2) Polymyalgia rheumatica: Status: Chronic Assessment and plan: Continue prednsione (3) CAD (coronary artery disease): Status: Chronic Assessment and plan: No evidence of ACS on this admission. (4) Hypothyroidism: Status: Chronic Assessment and plan: TSH 0.12 - will hold synthroid at this time. (5) CKD (chronic kidney disease), stage III: Status: Chronic Assessment and plan: Monitor Cr, I/O's, daily weights while diuresing. Cr tolerateding diuresis (6) Dysphagia: Status: Acute Assessment and plan: for pills. HEALTH INFORMATION TECHNOLOGIST did not see patient today but recommended: 1. Whole, 1 pill at a time with drink 2. Whole, 1 pill at a time in applesauce, pudding, yogurt (puree/pudding texture) 3. Crushed in applesauce, pudding, yogurt (puree/pudding texture) If dysphagia continues, will reconsult speech therapy. (7) Discharge planning issues: Status: Acute Assessment and plan: Full code. Palliative care met with patient today (8) DVT prophylaxis: Status: Acute Assessment and plan: lovenox sc Subjective Subjective Interval history since last seen: Ms Vinson is feeling better today. She is only a little bit short of breath working with PT. She complains of the discomfort/burning from the catheter and would like to have it removed. She denies dizziness, chest pain, nausea, abdominal pain. She is excited to go home today. THe patient's niece expressed concern that the patient had gained 4 lbs in 4 days and that the aide that comes to her house did not tell anyone. We discussed that I will put in my instructions that PCP should be contacted if the patient has gained 3 lbs in 3 days. We also discussed how dietary salt can cause water retention - the niece stated she will pass that information to the family. Exam Narrative Exam Narrative: General: Very pleasant elderly female, A&Ox3, Seen walking in the hallway with PT, doing well HEENT: EOMI, MMM Heart: RRR, no m/r/g Lungs: CTAB Abdomen: soft, nondistended Extremities: 1+ BLE edema with wrinkling; venous stasis dermatitis; looks better Objective Last Vital Signs Temp 36.7 C 12/05/19 11:05 Pulse 69 12/05/19 11:05 Resp 48 H 12/05/19 11:05 BP 150/72 H 12/05/19 11:05 Pulse Ox 96 12/05/19 11:05 Laboratory Results - last 24 hr 12/05/19 12/05/19 06:05 06:05 WBC 9.24 RBC 3.54 L Hgb 9.6 L Hct 29.8 L MCV 84.2 MCH 27.1 MCHC 32.2 RDW 15.9 H Plt Count 172 MPV 9.8 Immature Gran % 1.2 Neutrophils % 73.7 Lymphocytes % 16.8 Monocytes % 6.3 Eosinophils % 1.7 Basophils % 0.3 Nucleated RBC % 0 Absolute Neutrophils 6.81 H Absolute Lymphocytes 1.55 Absolute Monocytes 0.58 Absolute Eosinophils 0.16 Absolute Basophils 0.03 Sodium 140 Potassium 4.0 Chloride 99 Carbon Dioxide 33.9 H Anion Gap 7.1 BUN 39 H Creatinine 1.37 H Estimated GFR/1.73 m2 37.19 Glucose 141 H Calcium 9.5 Magnesium 1.8
--- NOTE | 2019-12-05 15:25 | CMPROGNOTE_ITS ---
- If Service Date Differs Date of service: 12/05/19 Time of Service: 15:25 Care Management Progress Note S/O: Lucy was sitting up in bed when CM met with her. She was using a word search book which CM provided to her RN earlier today for her to use to pass the time. CM discussed Lucy meeting with Palliative care today to talk about her health care goals and wishes. She stated that she is willing to talk with them, but she doesn't want them to try to make decisions for her. CM later spoke to Dr. Smith, who stated that they had a good conversation while establishing care, and Palliative will follow her out patient. CM will continue to follow. A: Lucy is a 79 year old female admitted to [facility] on 12/03/19 with CHF. P: Anticipate Lucy will return home once medically cleared with a resumption of HH RN, PT and CFC moderate needs. She may need an increase of services at home, if indicated. She will be driven home via private vehicle by family. She will follow up with her PCP and discharge plan of care. CM will continue to follow.
--- NOTE | 2019-12-05 16:06 | CHAPLAIN ---
Lucy's niece was visiting with her when I stopped in. Lucy said she didn't sleep well and was tired. She shared some personal history. I will try to visit again tomorrow. Lucy met with Dr. Smith for a Palliative Care consult, and will continue to follow Lucy as an outpatient.
[2019-12-05] MEDS: Acetaminophen 325 MG TAB 650 MG PO ×2 (17:51→23:19)
[2019-12-05] MEDS: Enoxaparin 30 MG/0.3 ML SYR SC (19:38)
[2019-12-05] MEDS: Atorvastatin 20 MG TAB PO (21:13)
--- NOTE | 2019-12-05 22:02 | PCNE_ITS ---
Date of service: 12/05/19 History of Present Illness History of Present Illness Chief Complaint: congestive heart failure, goals of care Narrative: I am familiar with Lucy from meeting her at her home in the past. Her PCP, Dr Graham, had asked if I could help her understand what being a full code meant, what her chances of survival were, etc. During those previous 2 home visits, Lucy made it clear that she wanted to remain full code. She is interested in any chance of survival. I met with her as an inpatient with her niece Ivelisse present. Ivelisse reports that Lucy's family is very concerned about Lucy's declining health. Ivelisse's son is a volunteer EMT and he has talked to Lucy with other family members present several times about his concerns that enduring CPR and defibrillation would be very painful for Lucy and ineffective. Nonetheless, Lucy wants everything done. Today, we talked about the differences between a cardiac, neurologic or resp iratory event happening at home, where it could easily take 20 minutes or more for fish roe processor to arrive vs experiencing cardiac arrest in the hospital. We discussed the option of Lucy being FULL CODE when hospitalized, but DNR/DNI at home. She is mulling over this still. Lucy explains to me that she was [facility] last week. She went to an appointment with urology and afterward, Ivelisse took her to [facility] for lunch. At [facility], she suddenly couldn't breathe and turned white. They called EMS and Lucy was t ransported to [facility] where she spent 11 nights. She was only home for a few nights before she returned to inpatient status, this time at [facility]. This time, Lucy and her niece think eating Bengali food was the trigger for this CHF exacerbation. THey don't know what triggered her previous one, which landed her at [facility]. Prior to my visit, Lucy had worked well with PT. She used her walker. She was able to maintain her oxygen saturation above 95% with 2 L of oxygen continuously. She has put out more urine, for a reported total of > 5 L in the last week, according to family. (Unverified). The plan is for Lucy to return to her home tomorrow. She has multiple family members who help care for her. Though she lives alone, she is rarely alone. Consults Consult date: 12/05/19 Requesting physician: Johnna Guerrero Assessment and Plan Assessment and plan (1) Goals of care, counseling/discussion: Status: Chronic Assessment and plan: Wants to return home and stay home. Never wants to be in SNF again. Has family willing to work to keep her home. Considering changing to DNR/DNI when at home. Wants to remain FULL code when hospitalized. Will talk to Ivelisse's son some more about his experiences. She says if she is at time she is shocked, it shouldn't bother her. To be continued....She is more open to the discussion. (2) Frailty syndrome in geriatric patient: Status: Chronic Assessment and plan: Has spent more than 2 weeks hospitalized in last 30 days, for CHF. However, she still has some resilience. She was up walking. She is determined to go home instead of SNF. (3) CHF (congestive heart failure): Status: Chronic Assessment and plan: She is very sensitive to any dietary indiscretions. She knows this. She will be strict about her diet once home. She had 2400 ccs out overnight in her ng still. SHe can see her ankles again. Hard for her to believe that she hold so much fluid so easily... (4) Palliative care patient: Status: Chronic Assessment and plan: Will continue to see her once she is home, if she desires. (5) Morbid obesity: Status: Chronic Assessment and plan: She reports she has weighed over 200 lbs most of her life, at 5 foot 2 inches top height. We discussed how obesity can cause heart failure, even if she was active, which she was. With her current round of diuresis, weighing about 175, she weighs less than she has in years. Discussed this as her goal weight. Review of Systems All systems reviewed & are unremarkable except as noted in HPI and below Constitutional Constitutional: Reports fatigue and Reports lethargy Eyes Eyes: Reports requires corrective lenses ENT Ears, Nose, Mouth, and Throat: Reports dry mouth and Reports disequilibrium (uses a walker without problem) Cardiovascular Cardiovascular: Reports dyspnea on exertion Comments: LE edema much improved since admission to [facility], per pt and family Respiratory Respiratory: Reports dyspnea on exertion Gastrointestinal Gastrointestinal: Reports constipation Genitourinary Genitourinary: Reports urinary incontinence (has ng currently) Musculoskeletal Musculoskeletal: Reports atrophy and Reports muscle weakness Neurologic Neurologic: Reports disequilibrium (uses a walker without problem) Psychiatric Psychiatric: Reports difficulty concentrating (too much going on lately; wants to go home and return to normal) Endocrine Endocrine: Reports fatigue [facility] Medical History Acute prerenal azotemia Anemia Anxiety Aortic stenosis, moderate (~07/2017) Asthma Chronic hypoxemic respiratory failure and patient is on 2 liters of oxygen chronically at rest and 3 liters with exertion. CAD (coronary artery disease) CABG approximately ten years ago; recently cardiac cath with single stent placement on inferior portion of heart down at [facility]. Dr. Navarro follows patient. Cholelithiasis without cholecystitis CKD (chronic kidney disease), stage III Baseline creatine 1.1 to 1.3 Compression fracture of L1 lumbar vertebra (~07/2017) Decreased performance of ADLs Decubital ulcer Falls frequently Frailty syndrome in geriatric patient Goals of care, counseling/discussion Hx of CABG (~2000) 2000 Hypothyroidism Low back pain LVH (left ventricular hypertrophy) Morbid obesity Open wound of scapular region without complication Palliative care patient Peripheral vascular disease Polymyalgia rheumatica Pulmonary embolism PVD (peripheral vascular disease) Type 2 diabetes mellitus On insulin. Unintentional weight loss Vascular dementia Venous stasis dermatitis of both lower extremities Vitamin B 12 deficiency Surgical History S/P CABG x 2 Family History Daughter Diabetes Son Diabetes Obesity Mother , age 49 of breast cancer Breast cancer Father , age 68 of stroke Stroke Hypertension Sister Seizure disorder Sister , from complications of her RA Lucy not clear how Rheumatoid arthritis Brother Leukemia Brother Heart disease Social History Smoking/Tobacco Use Status: Never Second Hand Exposure: No Alcohol Intake: never Drug use: Never Caregiver/Support person: Yes Household members: none and other Details: but family always around, when needed they spend the night Housing: house Number of Children: 2 number of grandchildren: 5 Communication Needs: Hard of Hearing and Corrective Lenses Education Level: high school Do you need help understanding health information?: Always 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, 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, 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 Pets and animals: No Current gender identity: female What is your relationship status?: How often do you talk on the phone with friends or family?: three or more times per week How often do you get together with friends or relatives?: three or more times per week Panel score (0-1 are the most socially isolated patients): 1 What type of physical activity do you participate in: none and sedentary lifest yle Special toi needs: No Agree to transfusion: Yes Seatbelt use: always Fire extinguisher in home: Yes Do you feel safe at home: Yes Do you feel safe in your relationship?: Yes Additional Social history: Lives alone in her own home since February 2018. Prior to that was living with her daughter for about a year. She was at a snf in [place] prior to moving in with her daughter. NEVER wants to go to a snf again. Never wants to go to [facility]. Definitely the matriarch of her family. Exam Narrative Exam Narrative: General: pleasant and stubborn elderly female, A&Ox3, earlier was walking in the hallway with PT, doing well HEENT: dry mm, hearing grossly intact, Heart: RRR, no m, or crackles, distant heart sounds Lungs: CTAB, no increased WOB, is wearing her NC Abdomen: soft, obese nondistended Extremities: trace BLE edema with wrinkling; venous stasis dermatitis, warm psych: not depressed, is anxious, wants to go home as soon as hospitalist allows neuro: no cognitive impairment skin: very pale, venous stasis changes in ble EYEs; anicteric, noninjected Results Last Vital Signs Temp 97.7 F 12/08/19 11:11 Pulse 62 12/08/19 11:11 Resp 19 12/08/19 11:11 BP 124/60 12/08/19 11:11 Pulse Ox 98 12/08/19 11:11 Labs Result diagrams: 12/08/19 07:15 12/08/19 07:15
[2019-12-06] VITALS (9 sets, daily range): BP systolic 105–127; BP diastolic 51–66; PULSE 54–67; RESP 16–19; TEMP 35.9–36.8; O2SAT 91–98
[2019-12-06 07:30] LABS: Anion Gap 8.3 mmol/L (3-11); BUN 48 mg/dL (7-18); CO2 31.7 mmol/L (21.0-32.0); CREATININE 1.64 mg/dL (0.55-1.02); Calcium 9.4 mg/dL (8.5-10.1); Chloride 98 mmol/L (98-107); Estimated GFR 30.22 (mL/min/1.73m2); Glucose 119 mg/dL (74-106); Potassium 3.4 mmol/L (3.5-5.1); Sodium 138 mmol/L (136-145)
[2019-12-06] MEDS: Budesonide/Formoterol 80/4.5 6.9 GM 60 PUFF INH IH ×2 (07:58→19:48)
[2019-12-06] MEDS: Cholecalciferol (Vitamin D3) 1,000 UNIT TAB 1000 UNITS PO (08:58)
[2019-12-06] MEDS: Pramipexole 0.5 MG TAB PO ×3 (08:58→19:49)
[2019-12-06] MEDS: Ferrous Gluconate 324 MG TAB PO (08:58)
[2019-12-06] MEDS: Cyanocobalamin 500 MCG TAB 1000 MCG PO (08:58)
[2019-12-06] MEDS: Spironolactone 25 MG TAB PO (08:58)
[2019-12-06] MEDS: Ticagrelor 90 MG TAB PO ×2 (08:58→19:48)
[2019-12-06] MEDS: amLODIPine 5 MG TAB PO (08:58)
[2019-12-06] MEDS: Bumetanide 1 MG TAB 2 MG PO (08:58)
[2019-12-06] MEDS: Lactobacillus Acidophilus CAP 1 CAP PO (08:58)
[2019-12-06] MEDS: Omeprazole 20 MG CAPCR 40 MG PO ×2 (08:59→19:48)
[2019-12-06] MEDS: SERTRALINE 100 MG TAB 200 MG PO (08:59)
[2019-12-06] MEDS: predniSONE 10 MG TAB PO (08:59)
--- NOTE | 2019-12-06 09:42 | RESPIRATORY ---
RT spoke with patient concerning home oxygen and what her baseline is. Patient stated her DME is [facility] and her baseline is 2L NC. She uses this mostly at night and occasionally as needed throughout the day, sometimes for an hour or two.
--- NOTE | 2019-12-06 09:45 | RT.EKG_ITS ---
APPROVED REPORT Exam: Resting ECG Patient Location: I HR:68 bpm ECG Measurements Heart Rate 68 AXIS NJ 162 P 25 QRSd 94 QRS 25 QT 416 T 29 QTc 444 Conclusion Sinus rhythm...normal P axis, V-rate 60- 99
[2019-12-06] MEDS: Magnesium Oxide 400 MG TAB PO (09:47)
[2019-12-06] MEDS: Acetaminophen 325 MG TAB 650 MG PO ×2 (10:11→15:35)
[2019-12-06] MEDS: Potassium Chloride 20 MEQ TABCR 40 MEQ PO (10:12)
--- NOTE | 2019-12-06 11:15 | PT.INTREAT ---
Date of service: 12/06/19 Time of Service: 11:15 PT Notes Visit Reasons: Congestive heart failure Inpatient Physical Therapy Treatment Note [facility] Date: 12/06/19 PRECAUTIONS: Fall. [place]. Activity as tolerated. On 2 L of O2/min via NC. SUBJECTIVE: Although she was trying to get away with a PT session by intentionally stating that she has been seen already, patient finally agreed to workign with PT when it was found out that she has not worked with anybody yet this morning. She broke out in laughter knowing she nearly tricked this PT about a session. OBJECTIVE: Telementry is place. Oxygen nasal cannula on. IV access to R UE. BED MOBILITY/TRANSFERS Sit-stand: SBA Stand-sit: SBA GAIT Assistive Device: 4WW Weight bearing: Full Assist: Suprevision Distance: 250 feet Deviation: 2.5L O2 via NC. Report of minimal fatigue but no SOB. Patient also did well with toileting this morning. THEREX: Bilateral heel raises x 10 and partial knee bends x 10 in standing. ASSESSMENT: Increasing activity tolerance with ambulation with no SOB seen this AM. PLAN: Patient will benefit from home health PT services in order to progress mobility level using least restrictive assistive ambulatory device, assess home safety, identify additional equipment needs, and establish a functional maintenance program that will increase ability of patient to remain at home. TREATMENT CODE/TIME: 98136 x 25 minutes, [id number] x 15 minutes beginning at 11:15 PM.
--- NOTE | 2019-12-06 15:27 | PT.INTREAT ---
Date of service: 12/06/19 Time of Service: 14:20 PT Notes Visit Reasons: Congestive heart failure Inpatient Physical Therapy Treatment Note [facility] Date: 12/06/19 SUBJECTIVE: Lucy states that she was hoping to go home today. She has yet to see the doctor today. OBJECTIVE: [] BED MOBILITY/TRANSFERS Sit-stand: SBA Stand-sit: SBA GAIT Assistive Device: 4ww Weight bearing: FWB Assist:S Distance: 250' Deviation: 2L O2 THEREX: performed a global LE strengthening routine while seated in chair. ASSESSMENT: tolerated session well. She did report that her legs were tired towards the end of her walk, but was able to safely get back to her room PLAN: continue to progress following POC. TREATMENT CODE/TIME: 30 min [id number], [id number].
--- NOTE | 2019-12-06 15:30 | RT.EKG_ITS ---
APPROVED REPORT Exam: Resting ECG Patient Location: I HR:62 bpm ECG Measurements Heart Rate 62 AXIS IA 172 P 15 QRSd 85 QRS 25 QT 426 T 28 QTc 433 Conclusion Sinus rhythm...normal P axis, V-rate 60- 99
--- NOTE | 2019-12-06 15:40 | W.PM.PROGNOT ---
Date of Service Date of service: 12/06/19 Time of Service: 15:40 Assessment and Plan Assessment and plan (1) Acute on chronic diastolic (congestive) heart failure: Status: Acute Assessment and plan: Doing better. Given increase in Cr (1.64 today up from 1.37), will make bumex daily. Will add TEDs to help with edema. Continue to monitor I/O's and daily weight. Plan is to go home tomorrow if no more NSVT. (2) NSVT (nonsustained ventricular tachycardia): Status: Acute Assessment and plan: In setting of hypokalemia. Checking EKG. K repleted. Monitor on tele 1 more night. We decreased the dose of diuretic today. (3) Hypokalemia: Status: Acute Assessment and plan: replete (4) Polymyalgia rheumatica: Status: Chronic Assessment and plan: Continue prednsione (5) CAD (coronary artery disease): Status: Chronic Assessment and plan: No evidence of ACS on this admission. (6) Hypothyroidism: Status: Chronic Assessment and plan: TSH 0.12 - holding synthroid (7) CKD (chronic kidney disease), stage III: Status: Chronic Assessment and plan: A bump in Cr indicates that we probably reached the maximum we could safely diurese from this patient. Monitor Cr, I/O's, daily weights while diuresing. (8) Dysphagia: Status: Acute Assessment and plan: for pills. SENIOR PORTFOLIO ANALYST did not see patient today but recommended: 1. Whole, 1 pill at a time with drink 2. Whole, 1 pill at a time in applesauce, pudding, yogurt (puree/pudding texture) 3. Crushed in applesauce, pudding, yogurt (puree/pudding texture) If dysphagia continues, will reconsult speech therapy. (9) Discharge planning issues: Status: Acute Assessment and plan: Full code. Palliative care met with patient - will need outpatient follow up (10) DVT prophylaxis: Status: Acute Assessment and plan: lovenox sc Subjective Subjective Interval history since last seen: Ms Vinson states that her breathing is alright today. She complains of her chronic abdominal pain that does get better with bowel movements, but bothers her nontheless. She just had a moderately sized BM. She does not currently feel constipated. She denies dizziness, chest pain, states I could be nauseated, I feel it in the back of my throat. Her niece thinks she looks pretty good today. 16 beats of Vtach overnight - asymptomatic Exam Narrative Exam Narrative: General: Very pleasant elderly female, A&Ox3, looks well sitting in a chair, but she is slightly anxious HEENT: EOMI, MMM Heart: RRR, no m/r/g Lungs: CTAB Abdomen: soft, nondistended, diffusely tender on mild palpation Extremities: 1+ BLE edema with wrinkling; venous stasis dermatitis; looks significantly better Objective Last Vital Signs Temp 36.8 C 12/06/19 12:19 Pulse 67 12/06/19 12:19 Resp 18 12/06/19 12:19 BP 106/65 12/06/19 12:19 Pulse Ox 95 12/06/19 12:19 Laboratory Results - last 24 hr 12/06/19 06:30 Sodium 138 Potassium 3.4 L Chloride 98 Carbon Dioxide 31.7 Anion Gap 8.3 BUN 48 H D Creatinine 1.64 H Estimated GFR/1.73 m2 30.22 Glucose 119 H Calcium 9.4 Magnesium 2.0
--- NOTE | 2019-12-06 15:54 | CMPROGNOTE_ITS ---
- If Service Date Differs Date of service: 12/06/19 Time of Service: 15:54 Care Management Progress Note S/O: Lucy was sitting up in her chair when CM met with her. Her niece, Ivelisse was in the room visiting. Lucy reported that she was hoping to be able to go home today, but she hadn't seen the provider yet. Per report, she will remain at [facility] to monitor her NSVT. If she does not continue to have NSVT, she will likely discharge home tomorrow. Lucy asked for karley azul, which CM provided, with clearance from her RN. CM will continue to follow. A: Lucy is a 79 year old female admitted to [facility] on 12/03/19 with CHF. P: Anticipate Lucy will return home once medically cleared with a resumption of HH RN, PT and CFC moderate needs. She may need an increase of services at home, if indicated. She will be driven home via private vehicle by family. She will follow up with her PCP and discharge plan of care. CM will continue to follow.
[2019-12-06] MEDS: Lidocaine 5% Patch 2 PATCH TP (17:25)
[2019-12-06] MEDS: Enoxaparin 30 MG/0.3 ML SYR SC (19:48)
[2019-12-06] MEDS: fentaNYL 12 MCG PATCH TD (21:24)
[2019-12-06] MEDS: Atorvastatin 20 MG TAB PO (21:27)
[2019-12-07] VITALS (10 sets, daily range): BP systolic 105–166; BP diastolic 52–77; PULSE 56–102; RESP 16–22; TEMP 36–37.1; O2SAT 88–100
[2019-12-07] MEDS: Budesonide/Formoterol 80/4.5 6.9 GM 60 PUFF INH IH ×2 (08:27→19:23)
[2019-12-07] MEDS: Lactobacillus Acidophilus CAP 1 CAP PO (08:37)
[2019-12-07] MEDS: Cyanocobalamin 500 MCG TAB 1000 MCG PO (08:39)
[2019-12-07] MEDS: Omeprazole 20 MG CAPCR 40 MG PO ×2 (08:41→19:24)
[2019-12-07] MEDS: predniSONE 10 MG TAB PO (08:41)
[2019-12-07] MEDS: amLODIPine 5 MG TAB PO (08:41)
[2019-12-07] MEDS: Ferrous Gluconate 324 MG TAB PO (08:42)
[2019-12-07] MEDS: Ticagrelor 90 MG TAB PO ×2 (08:43→19:24)
[2019-12-07] MEDS: Pramipexole 0.5 MG TAB PO ×3 (08:43→19:24)
[2019-12-07] MEDS: Cholecalciferol (Vitamin D3) 1,000 UNIT TAB 1000 UNITS PO (08:43)
[2019-12-07] MEDS: Bumetanide 1 MG TAB 2 MG PO (08:44)
[2019-12-07] MEDS: SERTRALINE 100 MG TAB 200 MG PO (08:45)
[2019-12-07] MEDS: Spironolactone 25 MG TAB PO (08:45)
[2019-12-07] MEDS: Acetaminophen 325 MG TAB 650 MG PO ×2 (10:01→15:24)
[2019-12-07] MEDS: Dicyclomine 10 MG CAP 20 MG PO ×2 (10:02→15:25)
--- NOTE | 2019-12-07 10:28 | PT.INTREAT ---
Date of service: 12/07/19 Time of Service: 10:28 PT Notes Visit Reasons: Congestive heart failure Inpatient Physical Therapy Treatment Note [facility] Date: 12/07/19 PRECAUTIONS: Fall SUBJECTIVE: Lucy is agreeable to participating in PT. She hopes to be discharged to home today. OBJECTIVE: BED MOBILITY/TRANSFERS Sit-stand: SBA Stand-sit: SBA GAIT Assistive Device: 4WW Weight bearing: Full Assist: S Distance: 260' Deviation: 2L O2 via NC, increased fatigue, increased SOB TOILETING: Patient toileted with SBA for transfers ASSESSMENT: Patient tolerated session with complaint of epigastric pain (which is a chronic problem, per nursing), which appeared to limit her activity participation. She also c/o feeling more SOB with gait training compared to previous sessions. She would benefit from continued global strengthening and gait training for improved activity tolerance and continues progression toward baseline level of function. PLAN: Continue with global strengthening and gait training. TREATMENT CODE/TIME: 25 minutes; [id number] x2
[2019-12-07] MEDS: Magnesium Oxide 400 MG TAB PO (11:05)
[2019-12-07 11:26] LABS: Anion Gap 5.2 mmol/L (3-11); BUN 59 mg/dL (7-18); CO2 32.8 mmol/L (21.0-32.0); CREATININE 1.48 mg/dL (0.55-1.02); Calcium 8.9 mg/dL (8.5-10.1); Chloride 98 mmol/L (98-107); Estimated GFR 34.02 (mL/min/1.73m2); Glucose 146 mg/dL (74-106); NT-proBNP 842 pg/mL (<300); Potassium 4.3 mmol/L (3.5-5.1); Sodium 136 mmol/L (136-145)
--- NOTE | 2019-12-07 12:36 | CMPROGNOTE_ITS ---
- If Service Date Differs Date of service: 12/07/19 Time of Service: 12:36 Care Management Progress Note S/O: No change in plan. Lucy is improving and her O2 is at 95% on room air today. An exercise oximetry assessment has been ordered to ensure her O2 level does not decrease with ambulation. Blood work ordered today shows an elevated BUN at 59, Creatinine at 1.48, and NT-proBNP at 842. CM will continue to follow. A: Lucy is a 79 year old female admitted to [facility] on 12/03/19 with CHF. P: Plan remains for Lucy to return home once medically cleared with a resumption of HH RN, PT and CFC moderate needs. She may need an increase of services at home, if indicated. She will be driven home via private vehicle by family. She will follow up with her PCP and discharge plan of care. CM will continue to follow.
--- NOTE | 2019-12-07 15:03 | PGE_ITS ---
Date of Service Date of service: 12/07/19 Time of Service: 15:04 Assessment and Plan Assessment and plan (1) Acute on chronic diastolic (congestive) heart failure: Status: Acute Assessment and plan: Improving. Continue Bystolic and Bumex and spironolactone consider addition of an angiotensin receptor beny. We will give an additional dose of Bumex IV today and recheck her proBNP and BMP in the morning. Will obtain records from [facility] regarding her last cardiology consult and her last echocardiogram. (2) NSVT (nonsustained ventricular tachycardia): Status: Acute Assessment and plan: Resolved and probably secondary to her transient hypokalemia (3) CKD (chronic kidney disease), stage III: Status: Chronic Assessment and plan: Creatinine is now down to 1.48 which was her admission level. However her baseline level from 2019 was lower at 1.09. We will obtain records from [facility] to see what her more recent levels have been prior to this admission. Qualifiers: Chronic kidney disease stage 3 subtype: unspecified whether 3a or 3b Qualified Code(s): N18.30 - Chronic kidney disease, stage 3 unspecified (4) Hypokalemia: Status: Acute Assessment and plan: Resolved hypokalemia after oral replacement. Patient will need to remain on oral replacement she is on diuretic therapy. (5) CAD (coronary artery disease): Status: Chronic Assessment and plan: Stable coronary artery disease. Patient's had no sym ptoms of chest pain or pressure. Troponin levels have been negative. Continue Bystolic, Brilinta,Atorvastatin and amlodipine Qualifiers: Coronary Disease-Associated Artery/Lesion type: unspecified vessel or lesion type [place] vs. transplanted heart: [place] heart Associated angina: without angina Qualified Code(s): I25.10 - Atherosclerotic heart disease of [place] coronary artery without angina pectoris (6) Hypothyroidism: Status: Chronic Assessment and plan: Low TSH at 0.12, but normal free T4 of 1.26. Her home dose of levothyroxine is currently on hold which is 150 mcg p.o. daily. We will resume her dose but a reduced level of 125 mcg daily. Qualifiers: Hypothyroidism type: acquired Qualified Code(s): E03.9 - Hypothyroidism, unspecified (7) Polymyalgia rheumatica: Status: Chronic Assessment and plan: Continue home dose of prednisone 10 mg daily. (8) Discharge planning issues: Status: Acute Assessment and plan: Discharge home in the next 24 to 48 hours once her acute CHF exacerbation is stabilized. Will arrange for home health and visiting nurse service upon discharge. Close follow-up with her PCP Dr. Perry Graham in the next week to 10 days. Subjective Subjective Interval history since last seen: Patient states that her breathing is all right but only feels that it is about 50% improved over the way she felt when she was admitted. She denies any chest pain. She is not short of breath at rest but feels dyspneic with any activity. She has had no further episodes of ventricular tachycardia overnight since she received potassium replacement. Potassium is now up to 4.3 and there is been slight improvement in her BUN and creatinine which are now down to 59 and 1.48. Her proBNP which was elevated at 3600 on admission is now down to 840. Nevertheless she still has peripheral edema as well as bilateral rales on pulmonary exam. Her torsemide was changed to Bumex and she is now down to once a day dose of Bumex 2 mg daily. I feel that she is still in adequately diuresed. We do not have any echocardiogram on file here at [facility]. I will request her records from [facility] to review her last cardiology consult and last echocardiogram. I would like her to stay 1 more day while we give her another dose of Bumex intravenously and see if we can take some more fluid off of her. I think that she will have to accept some degree of prerenal azotemia in order to keep her out of acute congestive failure. Exam Narrative Exam Narrative: Elderly female sitting up in her chair talking with her niece watching TV. At rest she is not dyspneic and she is able to converse in full sentences without getting dyspneic. Neck is supple nontender she has overt JVD even while sitting up in her chair. Jugular venous distention is half-way up her sternocleidomastoid muscle. No wheezes or rhonchi. Lungs with bibasilar rales Heart is regular rate and rhythm Abdomen is obese soft and distended but nontender. Lower extremities with 1+ pitting pedal edema Objective Last Vital Signs Temp 36 C L 12/07/19 11:20 Pulse 61 12/07/19 11:20 Resp 22 12/07/19 11:20 BP 118/74 12/07/19 11:20 Pulse Ox 97 12/07/19 11:20 Laboratory Results - last 24 hr 12/07/19 11:01 Sodium 136 Potassium 4.3 D Chloride 98 Carbon Dioxide 32.8 H Anion Gap 5.2 BUN 59 H D Creatinine 1.48 H Estimated GFR/1.73 m2 34.02 Glucose 146 H Calcium 8.9 NT-Pro-B Natriuret Pep 842 H
[2019-12-07] MEDS: Bumetanide 1 MG/4 ML VIAL IVP (15:12)
[2019-12-07] MEDS: Normal Saline Flush 10 ML SYR IVP (15:12)
[2019-12-07] MEDS: Lidocaine 5% Patch 2 PATCH TP (17:20)
[2019-12-07] MEDS: Enoxaparin 30 MG/0.3 ML SYR SC (19:23)
[2019-12-07] MEDS: Atorvastatin 20 MG TAB PO (21:21)
[2019-12-08 03:38] VITALS: BP 128/62; PULSE 57; RESP 18; TEMP 36.3; O2SAT 97
[2019-12-08] MEDS: Levothyroxine 125 MCG TAB PO (05:02)
[2019-12-08] MEDS: Acetaminophen 325 MG TAB 650 MG PO ×2 (05:02→08:41)
[2019-12-08 07:40] VITALS: BP 107/64; PULSE 56; RESP 18; TEMP 36.5; O2SAT 98
[2019-12-08 07:41] LABS: Abs Immature Grans 0.13 10^3/uL (0.0-0.06); Absolute Basophil Count 0.04 10^3/uL (0.0-0.2); Absolute Eosinophil Count 0.13 10^3/uL (0.0-0.7); Absolute Lymphocyte Count 1.16 10^3/uL (1.2-3.4); Absolute Monocyte Count 0.61 10^3/uL (0.1-0.8); Absolute Neutrophil Count 6.76 10^3/uL (1.2-6.7); Basophils % 0.5; Eosinophils % 1.5; HCT 29.8 % (36.0-46.0); HGB 9.4 g/dL (11.2-15.7); Immature Grans % 1.5; Lymphocytes % 13.1; MCH 26.7 pg (27.0-33.0); MCHC 31.5 % (32.0-36.0); MCV 84.7 fL (80-95); Monocytes % 6.9; Neutrophils % 76.5; Nucleated RBC 0 %; Platelet Count 179 10^3/uL (130-400); RBC 3.52 10^6/uL (3.93-5.22); RDW 15.9 % (11.7-14.6); WBC 8.83 10^3/uL (4.4-10.8)
[2019-12-08 08:05] LABS: Anion Gap 4.7 mmol/L (3-11); BUN 57 mg/dL (7-18); CO2 33.3 mmol/L (21.0-32.0); CREATININE 1.57 mg/dL (0.55-1.02); Chloride 100 mmol/L (98-107); Estimated GFR 31.78 (mL/min/1.73m2); Glucose 115 mg/dL (74-106); NT-proBNP 1180 pg/mL (<300); Potassium 4.3 mmol/L (3.5-5.1); Sodium 138 mmol/L (136-145)
[2019-12-08] MEDS: Budesonide/Formoterol 80/4.5 6.9 GM 60 PUFF INH IH (08:09)
[2019-12-08] MEDS: Ticagrelor 90 MG TAB PO (08:39)
[2019-12-08] MEDS: Lactobacillus Acidophilus CAP 1 CAP PO (08:39)
[2019-12-08] MEDS: Spironolactone 25 MG TAB PO (08:40)
[2019-12-08] MEDS: Cyanocobalamin 500 MCG TAB 1000 MCG PO (08:40)
[2019-12-08] MEDS: predniSONE 10 MG TAB PO (08:40)
[2019-12-08] MEDS: Omeprazole 20 MG CAPCR 40 MG PO (08:40)
[2019-12-08] MEDS: amLODIPine 5 MG TAB PO (08:40)
[2019-12-08] MEDS: Bumetanide 1 MG TAB 2 MG PO (08:40)
[2019-12-08] MEDS: Ferrous Gluconate 324 MG TAB PO (08:40)
[2019-12-08] MEDS: Cholecalciferol (Vitamin D3) 1,000 UNIT TAB 1000 UNITS PO (08:41)
[2019-12-08] MEDS: Pramipexole 0.5 MG TAB PO ×2 (08:41→14:05)
[2019-12-08] MEDS: SERTRALINE 100 MG TAB 200 MG PO (08:41)
[2019-12-08] MEDS: Magnesium Oxide 400 MG TAB PO (09:54)
[2019-12-08] MEDS: Nystatin POWDER 60 GM JAR TP (10:54)
[2019-12-08 11:11] VITALS: BP 124/60; PULSE 62; RESP 19; TEMP 36.5; O2SAT 98
--- NOTE | 2019-12-08 11:13 | PT.INTREAT ---
Date of service: 12/08/19 Time of Service: 11:13 PT Notes Visit Reasons: Congestive heart failure Inpatient Physical Therapy Treatment Note [facility] Date: 12/08/19 PRECAUTIONS: Fall SUBJECTIVE: Lucy is agreeable to participating in PT. She hopes to be discharged to home today. OBJECTIVE: BED MOBILITY/TRANSFERS Sit-Supine: I with HOB flat Sit-stand: SBA Stand-sit: SBA GAIT Assistive Device: 4WW Weight bearing: Full Assist: S Distance: 200' Deviation: 2L O2 via NC, c/o B UE pain THEREX: Patient was instructed in several LE strengthening and stabilization exercises in a supine position, as per flow sheet. ASSESSMENT: Patient tolerated session with complaint of B UE pain with gait training, which patient reports is a chronic problem. No c/o SOB with gait training with 2L O2 via NC. She would benefit from continued global strengthening and gait training for improved activity tolerance and continues progression toward baseline level of function. PLAN: Continue with global strengthening and gait training. TREATMENT CODE/TIME: 25 minutes; 59125, 14201
--- NOTE | 2019-12-08 15:38 | DSE_ITS ---
Date of service: 12/08/19 Time of Service: 15:39 DS: Diagnosis Discharge Diagnosis (1) Acute on chronic diastolic (congestive) heart failure: Status: Acute Asessment and Plan: As per her echocardiogram from 04/24/2019 patient has heart failure with preserved ejection fraction with normal global systolic function with an ejection fraction of 65%. Diastolic indices were not obtained at that time. It is presumed that she has some diastolic failure. Her RV is dilated with apical hypokinesis and she has biatrial enlargement and moderate aortic stenosis and severe pulmonary hypertension with PA pressures estimated 75 to 80 mm. I inquired with the patient and her niece as to whether or not she has been evaluated for sleep apnea. Patient recalls having had a couple of sleep studies but does not currently wear CPAP. I suggest she discuss this further with her ballistic expert. With respect to her diuretics we kept her on her spironolactone dose she was diuresed with IV Lasix drip and then converted over to Bumex. If more aggressive diuresis is needed Zaroxolyn could be considered however this may worsen her azotemia. Upon admission her proBNP was 3100 and mine to 3600 the next day but at the time of discharge her proBNP was down to 1180 after treatment w/ lasix drip and converstion to bumex orally. With respect to her azotemia her admission BUN was 33 creatinine 1.48 at the discharge BUN was 57 creatinine 1.57 and a potassium was normalized at 4.3. Her weight on admission was 82.2 kg and she transiently mine to 82.9 kg but at discharge she was down to 80.2 kg. (2) NSVT (nonsustained ventricular tachycardia): Status: Resolved Asessment and Plan: As noted in my summary patient had an episode of asymptomatic nonsustained ventricular tachycardia associated with hypokalemia. After resolution of her hypokalemia she had no further tachydysrhythmias. (3) CKD (chronic kidney disease), stage III: Status: Chronic Asessment and Plan: At the time of discharge she remained mildly azotemic with a BUN of 57 and a creatinine 1.57. However as per Dr. Molina's recent consult note indicated the patient may have to accept some degree of prerenal azotemia in order to adequately keep her euvolemic. While the patient demonstrates normal left ventricular systolic function I think with combination of her RV dysfunction and pulmonary hypertension and aortic valve disease it will become problematic over time balancing diuresis with her renal function. (4) Hypokalemia: Status: Resolved Asessment and Plan: Patient presented with a potassium of 3.4 on admission and a BUN of 33 creatinine 1.48. After being on a furosemide drip her potassium had transiently dropped down to as low as 3.2 but the time of discharge she had a potassium level 4.3 that is been stable for 2 days prior to discharge. She was not sent home on a potassium supplement but was kept on spironolactone and her torsemide was changed to Bumex. It is recommended she get a repeat BMP in a week to assess stability of her BUN and creatinine and potassium levels. She may require additional potassium supplementation. (5) CAD (coronary artery disease): Status: Chronic Asessment and Plan: Although the patient has known coronary artery disease post recent cardiac catheterization reportedly showed patency of her grafts. Patient was kept on her home antiplatelet therapy of Brilinta and she was kept on her home amlodipine and Bystolic.. (6) Hypothyroidism: Status: Chronic Asessment and Plan: Patient's TSH was checked during this admission and was found to be low at 0.12 with a normal free T4 of 1.26. Her levothyroxine was transiently held for a couple of days however upon discharge her dose was not permanently changed. It is recommended that she have a follow-up TSH checked by her primary care provider within the next few weeks. (7) Polymyalgia rheumatica: Status: Chronic (8) Discharge planning issues: Status: Resolved Asessment and Plan: Patient is discharged home with her niece. Patient will continue home health services along with visiting nurse and home physical therapy services. Discharge Plan Disposition Patient Disposition: HOME W/HOME HEALTH SERVICE Condition: Improving Discharge Details Reason For Visit: CHF Admit Date/Time: 12/03/19 10:35 Admit Provider: Perry Ray Attending Provider: Perry Ray Primary Care Provider: Perry Graham Hospital Course Hospital Course: 79-year-old female with history of chronic congestive heart failure with preserved ejection fraction, coronary artery disease status post previous coronary bypass graft who recently was hospitalized at [facility] where she underwent cardiac catheterization showed patency of her coronary stents including her WATSON and her OM1. She has stage III chronic kidney disease and hypothyroidism and polymyalgia rheumatica. She presented the hospital at [facility] on November 24, 2019 with complaints of increasing shortness of breath and pedal edema and atypical chest discomfort. She was noted to have an elevated proBNP greater than 3000 and a chest x-ray that was read as possible multifocal pneumonitis which actually turned out to be congestive heart failure. She had serial troponin levels that were negative for acute CT. She was initially given 80 mg of Lasix IV in the ER and ordered vancomycin and Zosyn which was subsequently discontinued. She required IV Lasix drip to diurese her and then she was transitioned over to oral diuretics including Bumex. Because of some transient prerenal azotemia her diuretic had to be held for a day. Her admission BUN and creatinine are elevated at 33 and 1.48 and peaked at 48 and 1.64 before finally settling on discharge of 57 1.57. She had some transient hypokalemia with a potassium of 3.2 which was corrected to a level 4.3 at discharge. Echocardiogram was never obtained during this hospitalization however records were obtained from [facility] indicating that her last echocardiogram was performed August 23, 2019 that demonstrated normal global systolic function with an ejection fraction of 65% with no wall motion abnormalities. However the patient has right ventricular dilatation with preser liset RV function but apical hypokinesis. She has biatrial enlargement moderate aortic stenosis with a valve area 1 cm? with a peak velocity 2.8 m/s. She has severe pulmonary hypertension with estimated RVSP of 75 to 80 mm. During her hospitalization she had a run of nonsustained ventricular tachycardia for which she was asymptomatic. This was in the setting of hypokalemia. Repeat EKG was checked and there was no ischemic changes. Once her hypokalemia was corrected she had no further ventricular tachydysrhythmias. During her hospitalization she had complained of some dysphasia in which she felt like pills would stick in the back of her throat. Speech pathologist was consulted but unable to see the patient however they did recommend that her whole pills be given with a drink or applesauce or pudding or yogurt and preferably crushed. This seemed to resolve her difficulty with swallowing pills. Patient is discharged home with continued home health care services including nursing and home physical therapy. Patient is to follow-up with her primary care provider Dr. Perry Graham in the next week and follow-up with her ballistic expert Dr. Molina as previously scheduled in late December or early January. Her torsemide was changed to Bumex. She is discharged with a prescription for Bumex 2 mg p.o. daily with orders for follow-up BMP in a week. Home Meds and New Rx's Prescriptions: New bumetanide 1 mg Tablet 2 mg PO DAILY Qty: 30 RF: 0 Continued Brilinta 90 MG tablet 90 mg PO BID RF: 0 sucralfate [Carafate] 1 gram Tablet 1 g PO QID RF: 0 sertraline 100 MG tablet 200 mg PO DAILY RF: 0 levothyroxine [Synthroid] 150 MCG tablet 150 mcg PO DAILY AM RF: 0 spironolactone 25 MG tablet 25 mg PO DAILY AM RF: 0 prednisone 5 mg tablet 10 mg PO DAILY RF: 0 atorvastatin 20 mg tablet 20 mg PO HS RF: 0 ferrous sulfate 325 mg (65 mg iron) Tablet 325 mg PO DAILY RF: 0 fentanyl 12 mcg/hr Patch 72 Hour 1 patch TRANSDERMAL Q48H RF: 0 ipratropium-albuterol 0.5 mg-3 mg(2.5 mg base)/3 mL solution for nebulization 3 ml INHALATION Q4H PRN PRN (Reason: Shortness Of Breath) RF: 0 dicyclomine 20 mg Tablet 20 mg PO QID PRN PRN (Reason: Abdominal Pain) RF: 0 pramipexole 1 mg tablet 0.5 mg PO TID RF: 0 amlodipine 5 mg Tablet 5 mg PO DAILY RF: 0 omeprazole 40 mg capsule,delayed release(DR/EC) 40 mg PO BID RF: 0 nystatin [Nystop] 100,000 unit/gram powder See Rx Instructions .ROUTE .COMPLEX RF: 0 fluticasone propion-salmeterol [Advair Diskus] 100-50 mcg/dose blister with device 1 inh INHALATION BID RF: 0 Acidophilus Tablet,Chewable 1 tab PO DAILY RF: 0 levalbuterol tartrate [Xopenex HFA] 45 mcg/actuation HFA aerosol inhaler 2 puff INHALATION Q4H PRN PRN (Reason: Wheezing) RF: 0 cholecalciferol (vitamin D3) [Vitamin D3] 25 mcg (1,000 unit) tablet 1,000 unit PO DAILY RF: 0 Bystolic 10 mg tablet 10 mg PO DAILY RF: 0 Discontinued torsemide 20 mg tablet 40 mg PO DAILY RF: 0 Discharge Instructions Instructions: Heart Failure (DC) Stand Alone Forms: Nursing Discharge Form Referrals: Perry Graham [Primary Care Provider] - (Call the office for follow-up within the week) Demetria Molina MD [ [facility] STAFF PHYSICIAN] - (Keep your scheduled follow-up as planned within a month) Activity:: Activity as Tolerated Equipment/Supplies:: No Equipment Needed Diet:: Low Sodium Discharge Orders Discharge Orders: Discharge Order (Routine); Ordered 12/08/19 Ordered By: Darian Lucero Other Ambulatory Orders: Basic Metabolic Panel (Routine) Timeframe: 1 Week Facility: [facility] - Location: Laboratory Outpatient Ordered By: Darian Lucero DS: Summary Status at Discharge Functional status at discharge: independent ambulation Overall status at discharge: patient is back to baseline Mental Status: mental status grossly normal Speech and Movement: speech and movement normal Mood: congruent mood Affect: normal affect Time Spent with Patient providing and/or coordinating discharge services: Greater than 30 minutes Exam Narrative Exam Narrative: Elderly female sitting up in her chair alert oriented person place time circumstance. Lungs with bibasilar rales upper regalado are clear no wheeze or rhonchi. Heart is regular rate and rhythm soft systolic murmur over the apex Abdomen is soft and nontender nondistended. Lower extremities without edema Psych Mental Status: mental status grossly normal Speech and Movement: speech and movement normal Mood: congruent mood Affect: normal affect DS: Data Vitals/I&O Vitals and I&O: Vital Signs Temperature 36.5 C 12/08/19 11:11 Temperature Source Temporal Artery Scan 12/08/19 11:11 Pulse 62 12/08/19 11:11 Pulse Rhythm Regular 12/08/19 07:35 Respiratory Rate 19 12/08/19 11:11 Respiratory Effort Non-Labored 12/08/19 07:35 Respiratory Depth Normal 12/08/19 07:35 Respiratory Pattern Normal 12/08/19 07:35 Blood Pressure 124/60 12/08/19 11:11 Blood Pressure Position Sitting 12/02/19 14:14 Pulse Oximetry 98 12/08/19 11:11 Oxygen Delivery Method Nasal Cannula 12/08/19 11:11 Oxygen Flow Rate 2 12/08/19 11:11 Pain Level 0 12/08/19 11:24 Comment 12/08/19 11:24 Intake & Output 12/07/19 12/08/19 12/08/19 23:59 11:59 23:59 Intake Total 620 / 1340 570 / 810 240 / 810 Output Total 100 / 360 300 / 400 100 / 400 Balance 520 / 980 270 / 410 140 / 410 Weight 80.2 kg Intake: IV Oral 600 / 1320 550 / 790 240 / 790 Output: Urine 100 / 360 300 / 400 100 / 400 Other: Urine Color Yellow Yellow Yellow Urine Appearance Clear Clear Clear Urine Odor Normal None Normal Comment Void x1 in the toilet/Incontinent x1 of a copious amount of urine in the briefs. Briefs were changed. Incontinent x1 of a moderate amount of urine in the briefs. Briefs were changed. Void x1 in the toilet/Incontinent x1 of a moderate amount of urine in the briefs. Briefs were changed. Stool Size Small Small Stool Characteristics Soft Soft Formed Formed Brown Voiding Methods Toilet Toilet Toilet Diaper Diaper Incontinent Incontinent Data Completed and Pending Labs on day of discharge: Labs from last 24 hours 12/08/19 12/08/19 07:15 07:15 WBC 8.83 RBC 3.52 L Hgb 9.4 L Hct 29.8 L MCV 84.7 MCH 26.7 L MCHC 31.5 L RDW 15.9 H Plt Count 179 MPV 10.0 Immature Gran % 1.5 Neutrophils % 76.5 Lymphocytes % 13.1 Monocytes % 6.9 Eosinophils % 1.5 Basophils % 0.5 Nucleated RBC % 0 Absolute Neutrophils 6.76 H Absolute Lymphocytes 1.16 L Absolute Monocytes 0.61 Absolute Eosinophils 0.13 Absolute Basophils 0.04 Sodium 138 Potassium 4.3 Chloride 100 Carbon Dioxide 33.3 H Anion Gap 4.7 BUN 57 H Creatinine 1.57 H Estimated GFR/1.73 m2 31.78 Glucose 115 H Calcium 9.0 NT-Pro-B Natriuret Pep 1180 H [facility] Medical History Acute prerenal azotemia Anemia Anxiety Aortic stenosis, moderate (~07/2017) Asthma Chronic hypoxemic respiratory failure and patient is on 2 liters of oxygen chronically at rest and 3 liters with exertion. CAD (coronary artery disease) CABG approximately ten years ago; recently cardiac cath with single stent placement on inferior portion of heart down at [facility]. Dr. Navarro follows patient. Cholelithiasis without cholecystitis CKD (chronic kidney disease), stage III Baseline creatine 1.1 to 1.3 Compression fracture of L1 lumbar vertebra (~07/2017) Decreased performance of ADLs Decubital ulcer Falls frequently Frailty syndrome in geriatric patient Goals of care, counseling/discussion Hx of CABG (~2000) 2000 Hypothyroidism Low back pain LVH (left ventricular hypertrophy) Morbid obesity Open wound of scapular region without complication Palliative care patient Peripheral vascular disease Polymyalgia rheumatica Pulmonary embolism PVD (peripheral vascular disease) Type 2 diabetes mellitus On insulin. 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 Prior to that was living with her daughter from December 2017 until 03/03/2018. She was at a snf in [place] prior to moving in with her daughter. NEVER wants to go to a snf again. Never wants to go to [facility].
--- NOTE | 2019-12-08 16:33 | CMDISCH_ITS ---
- If Service Date Differs Date of service: 12/08/19 Time of Service: 16:33 LACE Index Scoring Tool - Questions: Length of Stay (in days): 4 - 6 Acuity (Admit via E.D.?): Yes Comorbidities: Diabetes w/o Complication, Dementia, Liver or Renal Disease E.D. Visits: 2 - Answers: Total Score: 14 Risk of Readmission: High Risk Care Management Discharge Reason for Hospitalization: CHF Discharge Plan: Lucy is discharged home with a resumption of services through [facility] (RN & PT), [facility] highest needs, private caregivers, and [facility] (oxygen). She will follow up with her PCP, bone drier operator, and discharge plan of care as directed. Her niece, Ivelisse, is driving her home via private vehicle. Patient/Family Education Needs: Discharge instructions, limitations, follow up plan of care, including Ask Me Three and self management. Services Needed at Discharge: Home Health Care Services (Resumption of RN and PT), Oxygen Therapy ([facility])
--- NOTE | 2019-12-09 12:59 | INDS_ITS ---
Date of service: 12/09/19 Time of Service: 12:59 PT Notes Visit Reasons: Congestive heart failure Physical Therapy Inpatient Discharge Summary Date: 12/09/2019 Dates of service: 12/04/2019 through 12/08/2019 This is a clinical summary of care provided on the duration of dates listed above. No charge was made in the completion of this documentation. Referring Doctor: Johnna Guerrero MD PT Orders: PT CONSULT: Limited ability Precautions: Fall. Standard. Activity as tolerated. On 2.5 L of oxygen via NC. Patient Profile/Admitting Diagnosis: Lucy is a 79-year-old female who presented to the ED on 12/02/2019 with complaints of several days of increased leg swelling and some mild dyspnea with exertion. Patient is diagnosed with congestive heart failure exacerbation with referral to skilled physical therapy services for safety and mobility assessment/management. PMHX: Medical History Acute prerenal azotemia Anemia Anxiety Aortic stenosis, moderate (~07/2017) Asthma Chronic hypoxemic respiratory failure and patient is on 2 liters of oxygen chronically at rest and 3 liters with exertion. CAD (coronary artery disease) CABG approximately ten years ago; recently cardiac cath with single stent p lacement on inferior portion of heart down at [facility]. Dr. Navarro follows patient. Cholelithiasis without cholecystitis CKD (chronic kidney disease), stage III Baseline creatine 1.1 to 1.3 Compression fracture of L1 lumbar vertebra (~07/2017) Decreased performance of ADLs Decubital ulcer Falls frequently Frailty syndrome in geriatric patient Goals of care, counseling/discussion Hx of CABG (~2000) 2000 Hypothyroidism Low back pain LVH (left ventricular hypertrophy) Morbid obesity Open wound of scapular region without complication Palliative care patient Peripheral vascular disease Polymyalgia rheumatica Pulmonary embolism PVD (peripheral vascular disease) Type 2 diabetes mellitus On insulin. Unintentional weight loss Vascular dementia Venous stasis dermatitis of both lower extremities Vitamin B 12 deficiency Surgical History S/P CABG x 2 Social History/Home Situation: Lives alone but son and daughter live close by who help with meals and groceries. She has a HH aide daily from 8-1 PM for chores and self-care. Independent with all mobility ADL performance using the 4 wheeled walker. Chronically is on 2.5 L of oxygen per minute at night. has a rampt to enter. Equipment Owned/DME: Wheelchair, 4 wheeled walker, oxygen, shower chair Subjective: NT. See most recent CITY DISTRIBUTION CLERK notes. Objective: General Observation: NT. See most recent CITY DISTRIBUTION CLERK notes. Mental Status: NT. See most recent CITY DISTRIBUTION CLERK notes. Pain: NT. See most recent CITY DISTRIBUTION CLERK notes. Vital Signs: NT. See most recent CITY DISTRIBUTION CLERK notes. ROM: Right Upper Extremity: Shoulder Flexion WFL. Shoulder abduction WFL. Elbow flexion WFL. Wrist flexion WFL. Opening and closing of hand WFL. Left Upper Extremity: Shoulder Flexion WFL. Shoulder abduction WFL. Elbow flexion WFL. Wrist flexion WFL. Opening and closing of hand WFL. Right Lower Extremity: Hip flexion WFL. Hip abduction WFL. Knee flexion WFL. Ankle dorsiflexion WFL. Ankle plantarflexion WFL. Left Lower Extremity: Hip flexion WFL. Hip abduction WFL. Knee flexion WFL. Ankle dorsiflexion WFL. Ankle plantarflexion WFL. Strength: Right Upper Extremity: Shoulder flexors 4/5. Shoulder abductors 4/5. Elbow flexors 4/5. Elbow extensors 4/5. Supportability Engineer strong. Left Upper Extremity: SShoulder flexors 4/5. Shoulder abductors 4/5. Elbow flexors 4/5. Elbow extensors 4/5. Supportability Engineer strong. Right Lower Extremity: Hip flexors 4-/5. Hip abductors 4-/5. Knee flexors 4-/5. Knee extensors 4-/5. Ankle dorsiflexors 4-/5. Ankle plantarflexors 4-/5. Left Lower Extremity: Hip flexors 4-/5. Hip abductors 4-/5. Knee flexors 4-/5. Knee extensors 4-/5. Ankle dorsiflexors 4-/5. Ankle plantarflexors 4-/5. Sensation: Intact as to pain and pressure on bilateral lower extremities. Bed Mobility/Transfers: Sit to stand SBA Stand to sit SBA Bed to chair SBA Chair to bed SBA Gait: 200 feet using 4 wheeled walker with full weightbearing requiring supervision assist only with minimal complaints of B UE pain. Requires 2 L of oxygen supplementation via NC. Balance: Static Sitting: Normal Dynamic Sitting: Normal Static Standing: Fair Dynamic Standing: Fair Assessment: Lucy has demonstrated significant functional mobility improvement as evidenced by current mobility level above and goal status below during this episode of care. Lucy is a 79-year-old female who presented to the ED on 12/02/2019 with complaints of several days of increased leg swelling and some mild dyspnea with exertion. Patient is diagnosed with congestive heart failure exacerbation with referral to skilled physical therapy services for safety and mobility assessment/management. Patient continues to present with clinical signs and symptoms consistent with current/admitting diagnoses that have resulted to mobility limitations, gait instability, generalized weakness, and impairment of motor control as demonstrated by the following impairment level findings: 1. Decreased strength to be UE/LE major muscle groups 2. Impaired standing balance 3. Impaired activity tolerance Impairments are continuing to contribute to the following functional limitations: 1. Inability to safely ambulate without assistive device and physical assistance 2. Increase completion time for mobility ADL performance 3. Increased fall risk 4. Inability to negotiate steps alone safely Goals: Goals X1 week 1. Supine-Sit independent MET 2. Sit-Supine independent MET 3. Sit-Stand independent NOT MET 4. Stand-Sit independent NOT MET 5. Bed-Chair supervision NOT MET 6. Chair-Bed supervision NOT MET 7. Supervision gait on level surface with use of least restrictive device for at least 300 feet without report of pain nor dyspnea NOT MET 8. Good static and dynamic standing balance/tolerance NOT MET DISCHARGE RECOMMENDATIONS: Patient will benefit from home health PT services in order to progress mobility level using least restrictive assistive ambulatory device, assess home safety, identify additional equipment needs, and establish a functional maintenance program that will increase ability of patient to remain at home. TREATMENT CODE/TIME: PR Thank you for the opportunity to participate in the care of this patient. Jacki Gonsalves PT, DPT, CLT [facility] [place], [place]
== END 2019-12-08 16:34 | disposition home health service (06) | DRG 292 ==
LOC: ER 19:22 → MS 19:51
PROVIDERS: Emergency Medicine; Internal Medicine; Admitting Provider General Practice; Emergency Provider Emergency Medicine; PCP Family Medicine; Visit Provider General Practice
DX: I50.33 Acute on chronic diastolic (congestive) heart failure (principal); I47.2 Ventricular tachycardia; E87.6 Hypokalemia; M35.3 Polymyalgia rheumatica; I25.10 Atherosclerotic heart disease of native coronary artery without angina pectoris; N18.30 Chronic kidney disease, stage 3 unspecified; E03.9 Hypothyroidism, unspecified; R13.10 Dysphagia, unspecified; R10.9 Unspecified abdominal pain; D64.9 Anemia, unspecified; I35.0 Nonrheumatic aortic (valve) stenosis; Z95.1 Presence of aortocoronary bypass graft; Z95.5 Presence of coronary angioplasty implant and graft; R54 Age-related physical debility; R29.6 Repeated falls; M54.5 Low back pain; E66.01 Morbid (severe) obesity due to excess calories; I73.9 Peripheral vascular disease, unspecified; Z86.711 Personal history of pulmonary embolism; E11.22 Type 2 diabetes mellitus with diabetic chronic kidney disease; Z79.4 Long term (current) use of insulin; F01.50 Vascular dementia, unspecified severity, without behavioral disturbance, psychotic disturbance, mood disturbance, and anxiety; I87.2 Venous insufficiency (chronic) (peripheral); E53.8 Deficiency of other specified B group vitamins
CPT/HCPCS: 36415; 80048; 80053; 87040; 90686; 93005; 94640; 96374; 96375; 97110; 97162; 97530; 99222; 99232; 99233; 99239; 99255; 99285; U0003; 71046; 83735; 83880; 84439; 84443; 84484; 85025; 93010; 99219; G0378; J1650; J1940; J3490; J7512

== ENCOUNTER 2020-01-21 21:42 | Outpatient (REF) | payer MEDICARE, MEDICAID, SELFPAY ==
[2020-01-21 21:25] LABS: Bilirubin Negative (Negative); Blood Trace-intact (Negative); Clarity Sl Cloudy (Clear); Glucose Negative (Negative); Ketones Negative (Negative); Leukocyte Esterase Moderate (Negative); Nitrite Positive (Negative); Specific Gravity 1.015 (1.005-1.025); Urobilinogen 0.2 EU/dL (Up TO 0.2); pH 5.5 (5-8)
[2020-01-21 21:33] LABS: Bacteria Many HPF (Negative); C & S Indicated? Yes; Casts Negative LPF (Negative); Crystals Negative HPF (Negative); Epithelial Cells Few HPF (Negative); Mucus Negative (Negative); RBC Negative HPF (0-2); WBC >50 HPF (0-5)
== END 2020-01-21 22:02 ==
LOC: LBN 21:42
PROVIDERS: PCP Family Medicine; Visit Provider Family Medicine
DX: R30.0 Dysuria (principal); E11.59 Type 2 diabetes mellitus with other circulatory complications
CPT/HCPCS: 87077; 81003; 81015; 87086; 87186

== ENCOUNTER 2020-02-14 21:07 | Outpatient (REF) | payer MEDICARE, MEDICAID, SELFPAY ==
[2020-02-14 20:41] LABS: Bilirubin Negative (Negative); Blood Trace-intact (Negative); Clarity Sl Cloudy (Clear); Glucose Negative (Negative); Ketones Negative (Negative); Leukocyte Esterase Trace (Negative); Nitrite Positive (Negative); Urobilinogen 0.2 EU/dL (Up TO 0.2); pH 5.5 (5-8)
[2020-02-14 20:53] LABS: WBC 20-50 HPF (0-5)
[2020-02-14 20:54] LABS: Bacteria Packed HPF (Negative); C & S Indicated? Yes; Crystals Negative HPF (Negative); Epithelial Cells Many HPF (Negative); Mucus Negative (Negative)
== END 2020-02-14 21:27 ==
LOC: LBN 21:07
PROVIDERS: PCP Family Medicine; Visit Provider Family Medicine
DX: N39.0 Urinary tract infection, site not specified (principal)
CPT/HCPCS: 87077; 81003; 81015; 87086; 87186

== ENCOUNTER 2020-03-03 12:54 | Emergency (ER) | payer MEDICARE, MEDICAID, SELFPAY ==
--- NOTE | 2020-03-03 13:00 | RT.EKG_ITS ---
APPROVED REPORT Exam: Resting ECG Patient Location: E HR:60 bpm ECG Measurements Heart Rate 60 AXIS NJ 83 P 36 QRSd 101 QRS 21 QT 470 T 33 QTc 472 Conclusion Sinus rhythm...normal P axis, V-rate 60- 99 I have reviewed and interpreted ECG and agree with software generated interpretation.
--- NOTE | 2020-03-03 13:08 | ED.GENADUL_ITS ---
Discharge Plan Disposition Patient Disposition: HOME Condition: Good Discharge Details Clinical Impression: Cellulitis of left leg Primary Care Provider: Perry Graham ED Provider: Gurjit Conteh Home Meds and New Rx's Prescriptions: Continued Brilinta 90 MG tablet 90 mg PO BID RF: 0 sucralfate [Carafate] 1 gram Tablet 1 g PO QID RF: 0 sertraline 100 MG tablet 200 mg PO DAILY RF: 0 levothyroxine [Synthroid] 150 MCG tablet 150 mcg PO DAILY AM RF: 0 spironolactone 25 MG tablet 25 mg PO DAILY AM RF: 0 prednisone 5 mg tablet 10 mg PO DAILY RF: 0 atorvastatin 20 mg tablet 20 mg PO HS RF: 0 ferrous sulfate 325 mg (65 mg iron) Tablet 325 mg PO DAILY RF: 0 fentanyl 12 mcg/hr Patch 72 Hour 1 patch TRANSDERMAL Q48H RF: 0 ipratropium-albuterol 0.5 mg-3 mg(2.5 mg base)/3 mL solution for nebulization 3 ml INHALATION Q4H PRN PRN (Reason: Shortness Of Breath) RF: 0 dicyclomine 20 mg Tablet 20 mg PO QID PRN PRN (Reason: Abdominal Pain) RF: 0 pramipexole 1 mg tablet 0.5 mg PO BID RF: 0 amlodipine 5 mg Tablet 5 mg PO DAILY RF: 0 omeprazole 40 mg capsule,delayed release(DR/EC) 40 mg PO BID RF: 0 nystatin [Nystop] 100,000 unit/gram powder See Rx Instructions .ROUTE .COMPLEX RF: 0 fluticasone propion-salmeterol [Advair Diskus] 100-50 mcg/dose blister with device 1 inh INHALATION BID RF: 0 Acidophilus Tablet,Chewable 1 tab PO DAILY RF: 0 levalbuterol tartrate [Xopenex HFA] 45 mcg/actuation HFA aerosol inhaler 2 puff INHALATION Q4H PRN PRN (Reason: Wheezing) RF: 0 cholecalciferol (vitamin D3) [Vitamin D3] 25 mcg (1,000 unit) tablet 1,000 unit PO DAILY RF: 0 Bystolic 10 mg tablet 10 mg PO DAILY RF: 0 No Action lidocaine 5 % Adhesive Patch,Medicated 1 patch TOPICAL DAILY RF: 0 nitroglycerin 0.4 mg Tablet, Sublingual 0.4 mg SUBLINGUAL Q5M PRNRF: 0 gabapentin 100 mg capsule 200 mg PO TID RF: 0 loratadine 10 mg Tablet 10 mg PO DAILY RF: 0 bumetanide 1 mg tablet 2 mg PO BID RF: 0 Discharge Instructions Instructions: Cellulitis (ED) Additional Instructions: At this time there does appear to be a very mild infection/early cellulitis on the left lower extremity. Please take the antibiotic Keflex as directed. There is no signs of blood clot on the ultrasound. I would recommend avoiding any salty food whatsoever for the next week to help with any edema, keep the stockings on your lower extremity, and keep your leg elevated. If you notice any worsening of your symptoms, or any new symptoms such as vomiting, diarrhea, fever, chills, shortness of breath, chest pain, numbness, weakness, or fainting , please return immediately to the emergency department for reevaluation. Please follow up with your primary care provider as soon as possible for reassessment and reevaluation. As always, it was a pleasure participating in your medical ca re today. Referrals: Perry Graham [Primary Care Provider] - Medical Decision Making 79-year-old female with a past medical history of CAD, CKD, congestive heart failure, polymyalgia rheumatica, previous pulmonary embolism, on Brilinta but not an anticoagulant, presents today for evaluation of mild swelling in her lower extremities. Home health nursing felt that she had slight increased edema in her lower extremities today, they thought that they felt slightly warm and was concerned for potential infection, recommended that she be evaluated. After contacting her PCPs office her daughter found that there was no available appointments today and it was recommended she come to the ER for further assessment. Currently the patient denies any chest pain, shortness of breath, fever or chills. She denies any significant pain in her lower extremities except with palpation. No other complaints at this time. No other modifying factors. She denies any significant changes in her medications or her diuretics. Exam demonstrates mild redness and mild swelling to the left lower extremity compared to the right. Differential does include cellulitis, but also DVT. She is on Brilinta but not the anticoagulant. We will get basic lab blood work, get a proBNP to evaluate for CHF, get an ultrasound to rule out DVT, monitor closely and reassess. 2:18 PM Laboratory work-up is returned, no white count or bandemia, renal function at baseline, proBNP is not overly elevated compared to her normal levels. Recomme nd avoiding any salty foods, slight decrease in fluid intake. I do suspect she has mild early cellulitis of the left lower extremity. Ultrasound results per radiology indicate no evidence of DVT. Will recommend continued compression stockings and elevation, will give a dose of Keflex here and a prescription for Keflex for home use. Discussed the case with the patient's daughter. I have extensively reviewed the treatment plan and discharge instructions with the patient and their family. I have addressed all patient concerns at this time. The patient and family was made aware of what symptoms to monitor for that would warrant a return to the emergency department. Discussed the plan with the patient and family, they demonstrate verbal understanding and agreement with our assessment and plan at this time. HPI General Date/Time Provider Initiated Documentation: 03/03/20 13:01 . HPI Narrative: 79-year-old female with a past medical history of CAD, CKD, congestive heart failure, polymyalgia rheumatica, previous pulmonary embolism, on Brilinta but not an anticoagulant, presents today for evaluation of mild swelling in her lower extremities. Home health nursing felt that she had slight increased edema in her lower extremities today, they thought that they felt slightly warm and was concerned for potential infection, recommended that she be evaluated. After contacting her PCPs office her daughter found that there was no available appointments today and it was recommended she come to the ER for further assessment. Currently the patient denies any chest pain, shortness of breath, fever or chills. She denies any significant pain in her lower extremities except with palpation. No other complaints at this time. No other modifying factors. She denies any significant changes in her medications or her diuretics. Related Data Home Medications Medication Instructions Recorded Confirmed Brilinta 90 mg PO BID 03/11/13 03/03/20 sertraline 200 mg PO DAILY 05/17/16 03/03/20 levothyroxine [Synthroid] 150 mcg PO DAILY AM 10/09/17 03/03/20 spironolactone 25 mg PO DAILY AM 10/09/17 03/03/20 sucralfate [Carafate] 1 g PO QID 03/05/18 03/03/20 Acidophilus 1 tab PO DAILY 12/03/19 03/03/20 amlodipine 5 mg PO DAILY 12/03/19 03/03/20 atorvastatin 20 mg PO HS 12/03/19 03/03/20 cholecalciferol (vitamin D3) 1,000 unit PO DAILY 12/03/19 03/03/20 [Vitamin D3] dicyclomine 20 mg PO QID PRN PRN 12/03/19 03/03/20 fentanyl 1 patch TRANSDERMAL Q48H 12/03/19 03/03/20 ferrous sulfate 325 mg PO DAILY 12/03/19 03/03/20 fluticasone propion-salmeterol 1 inh INHALATION BID 12/03/19 03/03/20 [Advair Diskus] ipratropium-albuterol 3 ml INHALATION Q4H PRN PRN 12/03/19 03/03/20 levalbuterol tartrate [Xopenex HFA] 2 puff INHALATION Q4H PRN PRN 12/03/19 03/03/20 nystatin [Nystop] See Rx Instructions .ROUTE .COMPLEX 12/03/19 03/03/20 omeprazole 40 mg PO BID 12/03/19 03/03/20 pramipexole 0.5 mg PO BID 12/03/19 12/03/19 prednisone 10 mg PO DAILY 12/03/19 03/03/20 Bystolic 10 mg PO DAILY 12/05/19 03/03/20 bumetanide 2 mg PO BID 03/03/20 03/03/20 gabapentin 200 mg PO TID 03/03/20 03/03/20 lidocaine 1 patch TOPICAL DAILY 03/03/20 03/03/20 loratadine 10 mg PO DAILY 03/03/20 03/03/20 nitroglycerin 0.4 mg SUBLINGUAL Q5M PRN 03/03/20 03/03/20 Allergies Allergy/AdvReac Type Severity Reaction Status Date / Time aspirin Allergy Severe Anaphylaxsi Unverified 12/02/19 14:18 s morphine Allergy Intermediate Skin Rash Unverified 12/02/19 14:18 NSAIDS (Non-Steroidal Allergy Intermediate Skin Rash Unverified 12/02/19 14:18 Anti-Inflamma Sulfa (Sulfonamide Allergy Intermediate Skin Rash Unverified 12/02/19 14:18 Antibiotics) Quinidine-Quinine Analogues AdvReac Intermediate high fever Unverified 12/02/19 14:18 (Cincho tetanus and diphtheria AdvReac Intermediate Swelling/Ed Unverified 12/02/19 14:18 toxoids rachel [Tetanus&Diphtheria Toxoid] NADIYA Inhibitors AdvReac Mild cough Unverified 12/02/19 14:18 General ELISE: 3 Review of Systems All systems reviewed & are unremarkable except as noted in HPI and below PFSH Medical History Acute prerenal azotemia Altered mental state Anemia Anxiety Aortic stenosis, moderate (~07/2017) Asthma Chronic hypoxemic respiratory failure and patient is on 2 liters of oxygen chronically at rest and 3 liters with exertion. CAD (coronary artery disease) CABG approximately ten years ago; recently cardiac cath with single stent placement on inferior portion of heart down at [facility] [place]. Navarro follows patient. Cholelithiasis without cholecystitis CKD (chronic kidney disease), stage III Baseline creatine 1.1 to 1.3 Compression fracture of L1 lumbar vertebra (~07/2017) Decreased performance of ADLs Decubital ulcer Discharge planning issues Edema due to congestive heart failure Falls frequently Frailty syndrome in geriatric patient Goals of care, counseling/discussion Hx of CABG (~2000) 2000 Hypothyroidism Low back pain LVH (left ventricular hypertrophy) Morbid obesity Obesity (BMI 30.0-34.9) Open wound of scapular region without complication Palliative care patient Peripheral vascular disease Pneumonia Polymyalgia rheumatica Pulmonary embolism PVD (peripheral vascular disease) Type 2 diabetes mellitus On insulin. Unintentional weight loss Vascular dementia Venous stasis dermatitis of both lower extremities Vitamin B 12 deficiency Weight gain with edema Surgical History S/P CABG x 2 Family History Daughter Diabetes Son Diabetes Obesity Mother , age 49 of breast cancer Breast cancer Father , age 68 of stroke Stroke Hypertension Sister Seizure disorder Sister , from complications of her RA, Lucy not clear how Rheumatoid arthritis Brother Leukemia Brother Heart disease Social History Smoking/Tobacco Use Status: Never Second Hand Exposure: No Smoking risk assessment performed?: Yes Alcohol Intake: never Drug use: Never Substance use type: does not use Caregiver/Support person: Yes Household members: none and other Details: hired young woman for 5 hrs/day, 5 days/wk; family around too Housing: house Number of Children: 2 number of grandchildren: 5 Communication Needs: Hard of Hearing and Corrective Lenses Education Level: high school Do you need help understanding health information?: Always 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, 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, 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 Pets and animals: No Current gender identity: female What is your relationship status?: How often do you talk on the phone with friends or family?: three or more times per week How often do you get together with friends or relatives?: three or more times per week Panel score (0-1 are the most socially isolated patients): 1 What type of physical activity do you participate in: none and sedentary lifestyle Special toi needs: No Agree to transfusion: Yes Seatbelt use: always Working smoke detector in home: Yes Fire extinguisher in home: Yes Do you feel safe at home: Yes Do you feel safe in your relationship?: Yes Additional Social history: Lives alone in her own home since February 2018. Prior to that was living with her daughter for about a year. She was at a alf in [place] prior to moving in with her daughter. NEVER wants to go to a alf again. Never wants to go to [facility]. Definitely the matriarch of her family. Has help now from Sarah, who helps her with ADLs. Keeps on eye on her diet. Lucy up to 178 lbs today from 172 when she left [facility]. Exam Narrative Exam Narrative: 1.Const: Well-nourished, Well-developed, appearing stated age 2.Eyes: PERRL, no conjunctival injection, and symmetrical lids. 3.ENT: Atraumatic external nose and ears. Moist MM. Neck: Symmetric, trachea midline, No thyromegaly. 4.CVS: +S1/S2, No murmurs or gallops. Peripheral pulses 2+ and equal in all extremities. Brisk capillary refill in all extremities. 5.RESP: Minimal crackles in the very bases, no wheezes or rhonchi. No labored respiratory effort. Per home health nursing his crackles are notably improved from the day before. 6.GI: Soft, Nontender/Nondistended, No hepatosplenomegaly. No guarding or rebound. 7.MSK: Normocephalic/Atraumatic, Extremities w/o deformity. Minimal edema of the left lower extremity in comparison to the right. I would say +1 trace pitting edema. Mild redness circumferentially around the left lower extremity, slightly warm, but similar in temperature when compared to the right. Mild tenderness on palpation of the redness. No crepitus, no redness spreading past the mid calf region. No redness or pain in the foot. 8.Skin: Warm, Dry. No rashes or lesions. Please see musculoskeletal 9.Neuro: managed care provider II-XII grossly intact. Sensation grossly intact, no focal neurologic deficits. 10.Psych: (AAO) x3. Appropriate mood and affect
--- OUTSIDE RECORDS SUMMARY | 2020-03-03 13:11 | XMS_ITS ---
:1940 Author Care Team Providers Name Role Phone MADDY MAHAN MD Primary Care Provider [phone] MARK DAIGLE MD General Surgeon [phone] DEMETRIA MOLINA MD Rack Puncher [phone] ROLANDA LLOYD MD Rack Puncher [phone] Allergies Code Code System Name Reaction Severity Status Onset 1191 RxNorm Aspirin Facial Moderate Active ? Swelling 59994 RxNorm Gabapentin Other ? Active ? 7052 RxNorm Morphine ? ? Active ? Nsaids ? ? Active ? (Non-steroidal Anti-inflammato ry Drug) 9071 RxNorm Quinine Facial ? Active ? Swelling Sulfa Facial ? Active ? (Sulfonamide Swelling Antibiotics) Tetanus and Myalgias Severe Active ? Diphtheria (Muscle Pain) Toxoids Easprin ? ? Deactivated ? Notes: No seafood/contrast aller gy. Medications Name Status Start Date Stop Date ? ? Advair Diskus 100 mcg-50 Active ? Not matias ilable mcg/dose powder for inhalation Advair HFA 230 mcg-21 mcg/actuation aerosol inhaler Completed ? 08/28/2017 2 puffs BID Amitiza 8 mcg capsule Completed 04/04/2012 05/23/2012 1 Capsule: twice a day amlodipine 5 mg tablet Active ? Not avail able amoxicillin 200 mg-potassium clavulanate 28.5 mg chewable tablet Completed ? 03/20/2018 Take 1 tablet twice a day by oral route for 10 days. amoxicillin 500 mg capsule Completed 04/27/201205/04 1 Capsule: bid - twice daily amoxicillin 875 mg-potassium Completed ? clavulanate 125 mg tablet Animi-3 With Vitamin D 500 mg-1,000 unit-500 mcg capsule Active ? Not available Take 1 capsule every day by oral route for 90 days. atenolol 50 mg tablet Completed 08/24/2010 07/11/2011 1 Tablet: twice a day Ativan 1 mg tablet Completed 09/21/2010 07/11/2011 1 (one) Tablet: at bedtime atorvastatin 20 mg tablet Active ? Not av ailable azithromycin 250 mg tablet Completed ? 08/24 azithromycin 500 mg tablet Completed 06/25/201807/19 Take 500 mg every 24 hours by oral route for 3 days. Bentyl 20 mg tablet Active 06/25/2018 Not availabl e Take 1 tablet every 6 hours by oral route as needed. benzonatate 100 mg capsule Completed ? 08/24 Brilinta 90 mg tablet Active ? Not availa ble TAKE 1 TABLET BY MOUTH TWICE DAILY bumetanide 1 mg tablet Completed ? 0 bumetanide 2 mg tablet Active ? Not avail able Bystolic 10 mg tablet Active ? Not availa ble TK 1 T PO QD Bystolic 5 mg tablet Completed ? 08/24/2017 cefpodoxime 200 mg tablet Completed 06/25/20182018 Take 200 mg twice a day by oral route for 5 days. cephalexin 500 mg capsule Active ? Not av ailable TAKE 1 CAPSULE BY MOUTH THREE TIMES DAILY FOR 7 DAYS Cheratussin AC 10 mg-100 mg/5 mL oral liquid Completed ? 02/04/2020 Take 10 mL every 4 hours by oral route as directed for 10 days. cilostazol 100 mg tablet Active ? Not matias ilable cilostazol 50 mg tablet Active ? Not avai lable Ciprodex 0.3 %-0.1 % ear Completed ? 020 drops,suspension ciprofloxacin 500 mg tablet Completed ? 10/04 clindamycin HCl 300 mg capsule Completed ? 0 08/02/2019 Colace 100 mg capsule Completed ? 09/25/2017 Take 1 capsule 3 times a day by oral route. CoQ-10 100 mg capsule Completed 03/20/2018 06/25/2018 Take 1 capsule every day by oral route. Coumadin 4 mg tablet Completed 06/21/2010 07/05/2010 1 (one) Tablet: daily as directed cyanocobalamin (vit B-12) 1,000 Completed ? 06/25/2018 mcg tablet Depend Belted Tejeda Completed 05/07/2015 01/05/2016 1 (one) Misc: daily, as needed up to six times dicyclomine 10 mg/5 mL oral solution Completed ? 06/25/2018 Take 10 mL every 6 hours by oral route as needed. doxycycline hyclate 100 mg Completed ? 08/24 capsule doxycycline hyclate 100 mg Completed ? 06/26 tablet Eliquis 5 mg tablet Completed ? 03/20/2018 erythromycin with ethanol 2 % topical gel Completed ? 08/28/2017 BID fentanyl Completed ? 09/25/2017 25 mcg every 3 days fentanyl 12 mcg/hr transdermal patch Active ? Not available APPLY 1 PATCH EXTERNALLY TO THE SKIN EVERY OTHER DAY fentanyl 25 mcg/hr transdermal patch Completed 06/25/2018 07/19/2018 Apply 1 patch every 72 hours by transdermal route for 30 days. ferrous gluconate 325 mg (37 mg iron) tablet Completed 11/20/2019 Take 325 mg twice a day by oral route. ferrous sulfate 325 mg (65 mg iron) tablet Active ? Not available TK 1 T PO ONCE D flaxseed oil 1,000 mg capsule Completed 07/20/2012 1 (one) Capsule: daily fluticasone propionate 50 mcg/actuation nasal spray,suspension C ompleted ? 08/28/2017 daily folic acid Completed ? 10/19/2017 1mg daily folic acid 1 mg tablet Completed ? 9 furosemide 20 mg tablet Completed ? 11/07/19 20 furosemide 40 mg tablet Completed ? 06/04/19 19 gabapentin 100 mg capsule Active ? Not av ailable TAKE 2 CAPSULES BY MOUTH THREE TIMES DAILY glipizide 10 mg tablet Completed ? 9 glipizide 5 mg tablet Completed 07/27/2017 08/22/2017 Take 1 tablet every day by oral route. hydrocodone 5 mg-acetaminophen 325 mg tablet Completed 03/201604/16/2016 (one half) Tablet: every 4-6 hrs prn. hydrocortisone 2.5 % lotion Completed ? 03/06 BID as needed ipratropium 0.5 mg-albuterol 3 Active ? N ot available mg (2.5 mg base)/3 mL nebulization soln Lactinex 1 million cell chewable Completed ? 10/26/2017 tablet Lantus Solostar U-100 Insulin 100 unit/mL (3 mL) subcutaneou s pen Completed 05/08/2014 05/07/2015 22 units: daily levofloxacin 250 mg tablet Completed ? 02/03 Take 1 tablet every day by oral route for 7 days. levofloxacin 500 mg tablet Completed ? 02/03 levothyroxine 100 mcg tablet Completed 10/22/2015 1 (one) Tablet: daily levothyroxine 137 mcg tablet Completed ? Take 1 tablet every day by oral route. levothyroxine 150 mcg tablet Active ? Not available levothyroxine 50 mcg tablet Completed 10/22/201510/04 1 (one) Tablet: daily lidocaine 5 % topical patch Active ? Not available loratadine 10 mg tablet Active ? Not avai lable TK 1 T PO QD IN THE MORNING losartan 25 mg tablet Completed 05/27/2010 07/30/2010 1 (one) Tablet: daily Macrodantin 50 mg capsule Completed 07/20/20122012 as directed Capsule: three times weekly and daily for 10 days as needed for acute UTI magnesium 400 mg (as magnesium oxide) capsule Completed ? 06/25/2018 1 po daily magnesium oxide 400 mg (241.3 mg Completed ? 04/04/2018 magnesium) tablet magnesium oxide 500 mg capsule Completed 03/13/2012 0 03/13/2012 1 Capsule: daily meclizine 12.5 mg tablet Completed ? 019 meclizine 25 mg tablet Active ? Not avail able metformin 500 mg tablet Completed 06/23/2009 07/01/19 10 1 (one) Tablet: pm metronidazole 0.75 % topical Completed ? cream metronidazole 0.75 % topical gel Active ? Not available APPLY EXTERNALLY TO THE AFFECTED AREA TWICE DAILY DIRECTED Miralax 17 gram/dose oral powder Active ? Not available Take 17 g every day by oral route for 30 days. Mirapex 0.5 mg tablet Completed 07/20/2012 08/15/2012 1 (one) Tablet: at bedtime Multiple Vitamin tablet Completed 07/20/2012 04/17/19 14 1 (one) Tablet: daily Nasonex 50 mcg/actuation [place] Completed 07/12/2011 0 07/12/2011 2 (two) [place](s): each nostril daily nebulizer accessories misc Completed 06/17/201009/15 1 Device: daily neomycin 3.5 mg/g-polymyxin B Completed ? 10,000 unit/g-dexameth 0.1 % eye oint Nexium 20 mg capsule,delayed Completed 06/04/200903/2009 release nitroglycerin 0.4 mg sublingual Active ? Not available tablet Novolog U-100 Insulin aspart 100 unit/mL subcutaneous soluti on Completed 06/15/2010 07/15/2010 1 Solution: per sliding scale nystatin 100,000 unit/gram Active ? Not a vailable topical cream nystatin 100,000 unit/mL oral Active ? No t available suspension Nystop 100,000 unit/gram topical Active ? Not available powder omeprazole 20 mg capsule,delayed release Completed 010 07/16/[address]: daily omeprazole 40 mg capsule,delayed release Active ? Not available TAKE 1 CAPSULE BY MOUTH TWICE DAILY OneTouch Ultra Blue Test Strip Active ? N ot available Take 1 strip 4 times a day by miscell. route before meals for 9 0 days. oxycodone 10 mg tablet Completed ? 8 TID as needed oxycodone 5 mg capsule Completed ? 8 oxycodone 5 mg tablet Completed ? 08/24/2017 oxycodone-acetaminophen 5 mg-325 mg tablet Completed 11/0901/05/2016 1 (one) Tablet: three times daily, as needed pen needle, diabetic 31 gauge x 5/16 Completed 05/05/2016 05/06/2016 1 (one) needle: daily Plavix 75 mg tablet Completed 07/20/2012 11/29/2012 1 Tablet: daily pramipexole 1 mg tablet Active ? Not avai lable prednisone 1 mg tablet Completed ? 8 prednisone 10 mg tablet Completed ? 06/27/19 20 prednisone 2.5 mg tablet Completed 10/04/2016 017 as directed up to 6 (six) Tablet: daily prednisone 20 mg tablet Completed ? 11/07/19 19 prednisone 5 mg tablet Active ? Not avail able TK 3 TS PO QD AND TITRATE UTD sertraline 100 mg tablet Active ? Not matias ilable simvastatin 80 mg tablet Completed 11/29/2012 013 Tablet: at bedtime spironolactone 25 mg tablet Active ? Not available TAKE 1 TABLET BY MOUTH EVERY DAY sucralfate 1 gram tablet Active ? Not matias ilable Symbicort 160 mcg-4.5 mcg/actuation HFA aerosol inhaler Complete d ? 10/26/2017 Inhale 2 puffs twice a day by inhalation route. Terazol 7 0.4 % vaginal cream Completed 05/05/2016 1 (one) Applicatorful: daily terconazole 0.8 % vaginal cream Completed ? 08/24/2017 torsemide 20 mg tablet Completed ? 0 TAKE 2 TABLETS BY MOUTH DAILY tramadol 50 mg tablet Completed ? 02/04/2020 Take 1 tablet every day by oral route as needed for 28 days. tramadol ER 100 mg tablet,extended release 24 hr Completed ? 09/25/2017 Take 1 tablet every 6 hours by oral route. Tylenol 325 mg tablet Active 06/25/2018 Not availa ble Take 2 tablets every 4 hours by oral route as needed. Ventolin HFA 90 mcg/actuation aerosol inhaler Active ? Not available INHALE 2 PUFFS BY MOUTH EVERY 3 TO 4 HOURS NEEDED Vitamin C 500 mg capsule,extended release Completed 201207/20/2012 1 (one) Capsule ER: daily Vitamin D3 25 mcg (1,000 unit) tablet Active ? Not available Take 2 tablets every day by oral route for 90 days. Xopenex HFA 45 mcg/actuation Completed ? aerosol inhaler Problems Name Status Onset Date Source ? Compression Fracture of Vertebral Column Active 018 ? Chronic Neck Pain Active 10/05/2017 ? Lumbago with Sciatica Active 10/05/2017 ? Medication Monitoring Active 10/05/2017 ? Pain in Right Hip Joint Active 10/05/2017 ? Contusion of Scalp Active 10/19/2017 ? Candidiasis of Mouth Active 04/05/2018 ? Pressure Ulcer Active 04/05/2018 ? Compression Fracture of Lumbar Spine Active 04/05/2018 ? Candidiasis of Skin Active 08/16/2018 ? Hernia of Abdominal Wall Active 09/28/2018 ? Recurrent Urinary Tract Infection Active 11/16/2018 ? Nonalcoholic Steatohepatitis Active 12/13/2018 ? Chronic Right-sided Congestive Heart Active 06/27/2019 ? Failure Venous Stasis Ulcer with Edema of Left Active 0 ? Lower Leg Vitamin D Deficiency Active 08/19/2019 ? Benign Paroxysmal Positional Vertigo Active 08/19/2019 ? Aortic Valve Stenosis Active 08/19/2019 ? Hyperglycemia Due to Type 2 Diabetes Active 08/19/2019 ? Mellitus Right Ventricular Failure Active 09/18/2019 ? Bilateral Carotid Artery Occlusion Active 09/20/2019 ? Chronic Kidney Disease Stage 3 Active 09/20/2019 ? Nausea and Vomiting Active 11/12/2019 ? Rosacea Active 02/17/2020 ? B-cell Lymphoma (Clinical) Active ? Histo ry Hypothyroidism Active ? History Hyperlipidemia Active ? History Disorder of Lipid Metabolism Active ? His tory Dehydration Active ? History Anemia Active ? History Dream Anxiety Disorder Active ? History Depressive Disorder Active ? History Obstructive Sleep Apnea Syndrome Active ? History Restless Legs Active ? History Essential Hypertension Active ? History Hypertensive Disorder Active ? History Arteriosclerosis of Coronary Artery Active ? History Bypass Graft Chronic Ischemic Heart Disease Active ? H istory Right Ventricular Failure Unknown ? Histor y Transient Cerebral Ischemia Active ? Hist ory Peripheral Venous Insufficiency Active ? History Allergic Rhinitis Active ? History Pneumonia Active ? History Moderate Persistent Asthma Active ? Histo ry Gastroesophageal Reflux Disease without Active ? History Esophagitis Gastritis Active ? History Irritable Bowel Syndrome Active ? History Acute and Chronic Cholecystitis Active ? History Urinary Tract Infectious Disease Active ? History Abnormal Vaginal Bleeding Unknown ? Histor y Postmenopausal Bleeding Active ? History Hidradenitis Suppurativa Active ? History Arthropathy Active ? History Degeneration of Lumbosacral Active ? Hist ory Intervertebral Disc Polymyalgia Rheumatica Active ? History Syncope and Collapse Active ? History Abnormal Gait Active ? History Localized Edema Active ? History Headache Active ? History Orthopnea Active ? History Oropharyngeal Dysphagia Active ? History Diarrhea Active ? History Dysuria Active ? History Urge Incontinence of Urine Active ? Histo ry Abdominal Pain Active ? History Right Upper Quadrant Pain Active ? Histor y Epigastric Pain Active ? History Hypoxemia Active ? History Injury of Shoulder and Upper Arm Active ? History Injury of Wrist Active ? History Injury of Hand Active ? History Injury of Finger Active ? History History of Fall Active ? History Pain of Left Hip Joint Active ? History Cellulitis of Left Lower Limb Active ? Hi story Coronary Artery Bypass Graft Stent Active ? History Present Injury of Finger of Right Hand Active ? H istory Injury of Right Hand Active ? History Injury of Right Wrist Active ? History Contusion of Left Toe Active ? History Pain of Right Shoulder Joint Active ? His tory Acute Pulmonary Embolism Active ? History Notes: pulmonary embolism Procedures Date Name Performed by ? 10/29/2019 Cardiac Catheterization Information not available 10/24/2016 Eye Surgery Information not avai lable Notes: Right eye injected with aflibe rcept (EYLEA) opthalmic solution 10/03/2014 Hysteroscopy Information not avai lable Notes: with D&C 06/01/2010 Orthopedic Surgery Information not avai lable Notes: Total knee replacement (left) 03/06/1994 Laparoscopy Information not avai lable Notes: Laparoscopic Lysis of Adhesion s ? Hernia Repair Information not avai lable Notes: Inguinal Hernia Repair ? Tubal Ligation Information not avai lable Notes: Tumor removed from fallopian t ube 08/14/2017 US, Echocardiogram [facility] (Internal) [address] [place] [address] (Work [address]) 10/05/2017 XR, Cervical Spine, 4 or 5 View [facility] Radiology (Internal) [address] [place] [address] (Work Place) 10/05/2017 XR, Hip + Pelvis, Unilateral [facility] Radiology (Internal) [address] [place] [address] (Work Place) 10/05/2017 XR, Lumbosacral Spine, 2 or 3 View Radiology (Internal) [address] [place] [address] (Work Place) 10/19/2017 CT, Head + Brain, W/o Contrast [facility] Radiology (Internal) [address] [place] [address] (Work Place) 10/23/2017 XR, Shoulder, 2 or More View [facility] Radiology (Internal) [address] [place] [address] (Work Place) 10/26/2017 XR, Shoulder, 2 or More View [facility] Radiology (Internal) [address] [place] [address] (Work Place) 09/28/2018 XR, Chest, 2 View [facility] Radiology (Internal) [address] [place] [address] (Work Place) 09/28/2018 CT, Abdomen + Pelvis, W/ Contrast Radiology (Internal) [address] [place] [address] (Work Place) 10/18/2018 US, Echocardiogram [facility] Card [facility]ology [address] [place] [address] (Work Place) 10/31/2018 US, Echocardiogram [facility] (Internal) [address] [place] [address] ( (Work Place) 08/19/2019 US, Echocardiogram [facility] (Internal) [address] [place] [address] ( (Work Place) 09/20/2019 Event Monitor [facility] Cardio pulmonary [address] [place] [address] (Work Place) 09/20/2019 US, Carotid Artery [facility] (Internal) [address] [place] [address] ( (Work Place) 09/20/2019 XR, Chest, 2 View [facility] Radiology (Internal) [address] [place] [address] (Work Place) Results Lab Results Date Name Specimen Result Interpretation Description Value Range Status Address ? 01/21/2020 Culture ? No ? ? ? Johnny onia ([place] [facility]), Urine recorded. [facility]: [address], [place] 12/13/2019 CBC W/ Auto BLD High Wbc 10.2 5.0-10. Final [place] Diff 10*3/uL 0 [facility] 10*3/uL Hospital Lab (Internal) : [address] ? ? BLD Low Rbc 3.81 4.10-5. Final [place] 10*6/uL [facility] [place] 10*6/uL Hospital Lab (Internal) : [address] ? ? BLD Low Hgb 10.2 12.0-16 Final [place] g/dL .0 g/dL [facility] Hospital Lab (Internal) : [address] ? ? BLD Low Hct 33.2 % 37.0-47 Final [place] .0 % [facility] Hospital Lab (Internal) : [address] ? ? BLD ? Mcv 87.1 fL 80.0-96 Final [place] .0 fL [facility] Hospital Lab (Internal) : [address] ? ? BLD ? Mch 26.8 pg 26.0-32 Final [place] .0 pg [facility] Hospital Lab (Internal) : [address] ? ? BLD Low Mchc 30.7 31.0-35 Final [place] g/dL .0 g/dL [facility] Hospital Lab (Internal) : [address] ? ? BLD High Rdw 16.0 % 11.5-14 Final [place] .5 % [facility] Hospital Lab (Internal) : [address] ? ? BLD ? Plt 243 130-450 Final [place] 10*3/uL 10*3/uL [facility] Hospital Lab (Internal) : [address] 12/13/2019 Renal Function S High g/r 163 74-106 Final [place] Panel, Serum mg/dL mg/dL Coun [facility] Hospital Lab (Internal) : [address] ? ? S High Bun 55 mg/dL 7-17 Final [place] mg/dL [facility] Hospital Lab (Internal) : [address] ? ? S High Crea 1.60 0.52-1. Final [place] mg/dL 04 [place] mg/dL Hospital Lab (Internal) : [address] ? ? S ? Ca 9.5 8.4-10. Final [place] mg/dL 2 mg/dL [facility] Hospital Lab (Internal) : [address] ? ? S ? Phos 4.2 2.5-4.5 Final [place] mg/dL mg/dL [facility] Hospital Lab (Internal) : [address] ? ? S ? Na 138 137-145 Final [place] mmol/L mmol/L [facility] Hospital Lab (Internal) : [address] ? ? S ? K 4.7 3.5-5.1 Final [place] mmol/L mmol/L [facility] Hospital Lab (Internal) : [address] ? ? S Low Cl 96 98-107 Final [place] mmol/L mmol/L [facility] Hospital Lab (Internal) : [address] ? ? S ? Tco2 28.0 22.0-30 Final [place] mmol/L .0 [place] mmol/L Hospital Lab (Internal) : [address] ? ? S ? Alb 4.5 g/dL 3.5-5.0 Final [place] g/dL [facility] Hospital Lab (Internal) : [address] ? ? S Low GFR (Calc) 31 >89 Final [facility] Hospital Lab (Internal) : [address] 12/13/2019 Magnesium, QN, S High mg 2.4 1.6-2.3 Purnima l [place] Serum or mg/dL mg/dL [facility] Plasma Hospital Lab (Internal) : [address] 12/13/2019 T4, Free, S ? Ft4 1.52 0.78-2. Final No rth Serum NG/dL 19 [place] NG/dL Hospital Lab (Internal) : [address] 12/13/2019 Differential, BLD High Polys 82 % 40-75 % Final [facility], Blood Cou ntr Hospital Lab (Internal) : [address] ? ? BLD ? Bands 0 % 0-5 % Final [facility] Hospital Lab (Internal) : [address] ? ? BLD Low Lymphs 10 % 20-50 % Final [facility] Hospital Lab (Internal) : [address] ? ? BLD ? [facility] 2 % 2-10 % Final Lab (Internal) : [address] ? ? BLD ? Eos 3 % 0-6 % Final Lab (Internal) : [address] ? ? BLD ? Baso 1 % 0-1 % Final Lab (Internal) : [address] ? ? BLD ? Atyp Lymph 0 % ? Final [facility] Hospital Lab (Internal) : [address] ? ? BLD High [place] 2 % 0-0 % Final Nort h [facility] Hospital Lab (Internal) : [address] ? ? BLD ? Plts, Est. adequate adequat Final No rth e [facility] Hospital Lab (Internal) : [address] ? ? BLD ABNORMAL RBC abnormal normal Final [facility] Hospital Lab (Internal) : [address] ? ? BLD ? Aniso occasion ? Final [facility] Hospital Lab (Internal) : [address] 12/13/2019 Neutrophil BLD ? Anc-manual 8.32 ? Purnima l [place] Count, 10*3/uL [facility] (Anc), Blood Lab (Internal) : [address] [place] 12/13/2019 Nlr-manual BLD High Nlr - Manual 8.20 0.00-3. F inal [place] [facility] Lab (Internal) : [address] [place] 12/13/2019 TSH, Serum or S ? Tsh 1.15 0.47-4. Final [place] Plasma u[IU]/mL 68 [facility] u[IU]/m Hospital L Lab (Internal) : [address] [place] 12/13/2019 BNP (B-type S High Nt-probnp 1360 0-450 Purnima l [place] Natriuretic pg/mL pg/mL Count ry Peptide), Hospita l Prohormone Lab N-terminal, (Inte rnal) Quant, : 189 Immunoassay, Prou ty , Blood [place] 12/13/2019 ESR BLD High Esr 67 mm/h 0-30 Final [place] (Erythrocyte mm/h Coun [facility] Rate), Blood Lab (Internal) : [address] [place] 12/13/2019 T3, Total, S Low T3, Total 79 NG/dL 97-169 Fin [place] Serum NG/dL [facility] Lab (Internal) : [address] [place] 11/12/2019 CBC W/ Auto BLD ? Wbc 10.0 5.0-10. Final [place] Diff 10*3/uL 0 [facility] 10*3/uL Hospital Lab (Internal) : [address] ? ? BLD Low Rbc 3.86 4.10-5. Final [place] 10*6/uL [facility] [place] 10*6/uL Hospital Lab (Internal) : [address] ? ? BLD Low Hgb 10.5 12.0-16 Final [place] g/dL .0 g/dL [facility] Hospital Lab (Internal) : [address] ? ? BLD Low Hct 33.6 % 37.0-47 Final [place] .0 % [facility] Hospital Lab (Internal) : [address] ? ? BLD ? Mcv 87.0 fL 80.0-96 Final [place] .0 fL [facility] Hospital Lab (Internal) : [address] ? ? BLD ? Mch 27.2 pg 26.0-32 Final [place] .0 pg [facility] Hospital Lab (Internal) : [address] [place] ? ? BLD ? Mchc 31.3 31.0-35 Final [place] g/dL .0 g/dL [facility] Hospital Lab (Internal) : [address] ? ? BLD High Rdw 16.3 % 11.5-14 Final [place] .5 % [facility] Hospital Lab (Internal) : [address] [place] ? ? BLD ? Plt 224 130-450 Final [place] 10*3/uL 10*3/uL [facility] Hospital Lab (Internal) : [address] [place] 11/12/2019 Differential, BLD High Polys 89 % 40-75 % Final [facility], Blood Cou [facility] Hospital Lab (Internal) : [address] ? ? BLD ? Bands 0 % 0-5 % Final [facility] Hospital Lab (Internal) : [address] ? ? BLD Low Lymphs 9 % 20-50 % Final [facility] Hospital Lab (Internal) : [address] ? ? BLD ? [facility] 2 % 2-10 % Final Lab (Internal) : [address] ? ? BLD ? Eos 0 % 0-6 % Final Lab (Internal) : [address] ? ? BLD ? Baso 0 % 0-1 % Final Lab (Internal) : [address] ? ? BLD ? Atyp Lymph 0 % ? Final Lab (Internal) : [address] [place] ? ? BLD ? Plts, Est. adequate adequat Final No rth e [facility] Hospital Lab (Internal) : [address] ? ? BLD ABNORMAL RBC abnormal normal Final [facility] Lab (Internal) : [address] ? ? BLD ? Aniso small ? Final [facility] Hospital Lab (Internal) : [address] [place] 11/12/2019 Neutrophil BLD ? Anc-manual 8.93 ? Purnima l [place] Count, 10*3/uL [facility] (Anc), Blood Lab (Internal) : [address] [place] 11/12/2019 Nlr-manual BLD High Nlr - Manual 9.89 0.00-3. F inal [place] [facility] [place] [facility] Lab (Internal) : [address] 11/12/2019 Renal Function S High g/r 177 74-106 Final [place] Panel, Serum mg/dL mg/dL Coun try Hospital Lab (Internal) : [address] ? ? S High Bun 94 mg/dL 7-17 Final [place] mg/dL [facility] [facility] : [address] ? ? S High Crea 1.80 0.52-1. Final [place] mg/dL 04 [place] mg/dL Hospital Lab (Internal) : [address] ? ? S ? Ca 10.2 8.4-10. Final [place] mg/dL 2 mg/dL [facility] Lab (Internal) : [address] ? ? S ? Phos 3.8 2.5-4.5 Final [place] mg/dL mg/dL [facility] Lab (Internal) : [address] ? ? S ? Na 140 137-145 Final [place] mmol/L mmol/L [facility] Lab (Internal) : [address] ? ? S ? K 3.7 3.5-5.1 Final [place] mmol/L mmol/L [facility] Lab (Internal) : [address] ? ? S ? Cl 98 98-107 Final [place] mmol/L mmol/L [facility] Hospital Lab (Internal) : [address] ? ? S ? Tco2 28.0 22.0-30 Final [place] mmol/L .0 [facility] mmol/L Hospital Lab (Internal) : [address] ? ? S ? Alb 4.4 g/dL 3.5-5.0 Final [place] g/dL [facility] Hospital Lab (Internal) : [address] ? ? S Low GFR (Calc) 27 >89 Final [facility] Hospital Lab (Internal) : [address] 11/12/2019 ESR BLD High Esr 69 mm/h 0-30 Final [place] (Erythrocyte mm/h Coun try Sedimentation Hos pital Rate), Blood Lab (Internal) : [address] 11/11/2019 CBC W/ Auto BLD High Wbc 10.3 5.0-10. Final [place] Diff 10*3/uL 0 [place] 10*3/uL Hospital Lab (Internal) : [address] ? ? BLD Low Rbc 3.92 4.10-5. Final [place] 10*6/uL 30 [facility] 10*6/uL Hospital Lab (Internal) : [address] ? ? BLD Low Hgb 10.7 12.0-16 Final [place] g/dL .0 g/dL [facility] Hospital Lab (Internal) : [address] [place] ? ? BLD Low Hct 34.0 % 37.0-47 Final [place] .0 % [facility] Hospital Lab (Internal) : [address] [place] ? ? BLD ? Mcv 86.7 fL 80.0-96 Final [place] .0 fL [facility] Hospital Lab (Internal) : [address] [place] ? ? BLD ? Mch 27.3 pg 26.0-32 Final [place] .0 pg [facility] Hospital Lab (Internal) : [address] [place] ? ? BLD ? Mchc 31.5 31.0-35 Final [place] g/dL .0 g/dL [facility] Hospital Lab (Internal) : [address] [place] ? ? BLD High Rdw 16.4 % 11.5-14 Final [place] .5 % [facility] Lab (Internal) : [address] [place] ? ? BLD ? Plt 201 130-450 Final [place] 10*3/uL 10*3/uL [facility] Lab (Internal) : [address] [place] 11/11/2019 Differential, BLD High Polys 85 % 40-75 % Final [facility] Blood [facility] Hospital Lab (Internal) : [address] [place] ? ? BLD ? Bands 1 % 0-5 % Final Lab (Internal) : [address] [place] ? ? BLD Low Lymphs 8 % 20-50 % Final Lab (Internal) : [address] [place] ? ? BLD ? [facility] 4 % 2-10 % Final Lab (Internal) : [address] [place] ? ? BLD ? Eos 0 % 0-6 % Final Lab (Internal) : [address] [place] ? ? BLD ? Baso 1 % 0-1 % Final Lab (Internal) : [address] [place] ? ? BLD ? Atyp Lymph 0 % ? Final [facility] Hospital Lab (Internal) : [address] ? ? BLD High Young Forms 1 % 0-0 % Final Nort h [facility] Lab (Internal) : [address] ? ? BLD ? Plts, Est. adequate adequat Final No rth e [facility] Hospital Lab (Internal) : [address] ? ? BLD ABNORMAL RBC abnormal normal Final [place] Morphology [facility] Hospital Lab (Internal) : [address] ? ? BLD ? Aniso occasion ? Final [facility] Lab (Internal) : [address] 11/11/2019 Neutrophil BLD ? Anc-manual 8.88 ? Purnima l [place] Count, 10*3/uL [facility] ([facility]), Blood Lab (Internal) : [address] 11/11/2019 Nlr-manual BLD High Nlr - Manual 10.75 0.00-3. F inal [address] Lab (Internal) : [address] 11/11/2019 CMP, Serum or S High g/r 176 74-106 Final [place] Plasma mg/dL mg/dL [facility] Lab (Internal) : [address] ? ? S High Bun 108 7-17 Final [place] mg/dL mg/dL [facility] Lab (Internal) : [address] ? ? S High Crea 1.80 0.52-1. Final [place] mg/dL 04 [place] mg/dL Hospital Lab (Internal) : [address] ? ? S ? Ca 10.0 8.4-10. Final [place] mg/dL 2 mg/dL [facility] Hospital Lab (Internal) : [address] ? ? S ? Na 139 137-145 Final [place] mmol/L mmol/L [facility] Hospital Lab (Internal) : [address] ? ? S ? K 3.5 3.5-5.1 Final [place] mmol/L mmol/L [facility] Hospital Lab (Internal) : [address] ? ? S Low Cl 96 98-107 Final [place] mmol/L mmol/L [facility] Hospital Lab (Internal) : [address] ? ? S ? Tco2 30.0 22.0-30 Final [place] mmol/L .0 [place] mmol/L Hospital Lab (Internal) : [address] ? ? S High Tp 8.5 g/dL 6.3-8.2 Final [place] g/dL [facility] Lab (Internal) : [address] ? ? S ? Alb 4.4 g/dL 3.5-5.0 Final [place] g/dL [facility] Lab (Internal) : [address] ? ? S ? Tbil 0.5 0.2-1.3 Final [place] mg/dL mg/dL [facility] Hospital Lab (Internal) : [address] ? ? S ? Alp 83 U/L 38-126 Final [place] U/L [facility] Lab (Internal) : [address] ? ? S ? Alt (Sgpt) 50 U/L 9-52 Final [place] U/L [facility] Hospital Lab (Internal) : [address] ? ? S High Ast (Sgot) 60 U/L 14-36 Final [place] U/L [facility] Lab (Internal) : [address] 11/11/2019 BNP (B-type S High Nt-probnp 1270 0-450 Purnima l [place] Natriuretic pg/mL pg/mL Count ry Peptide), Hospita l Prohormone Lab N-terminal, (Inte rnal) Quant, : 189 Immunoassay, Prou ty , Blood [place] 11/11/2019 Troponin I, S ? Trop <0.06 0.00-0. Final [place] Serum or NG/mL 06 [facility] Plasma NG/mL Hospital Lab (Internal) : [address] 09/20/2019 CBC W/ Auto BLD ? Wbc 9.0 5.0-10. Final [place] Diff 10*3/uL 0 [place] 10*3/uL Hospital Lab (Internal) : [address] ? ? BLD Low Rbc 3.45 4.10-5. Final [place] 10*6/uL 30 [place] 10*6/uL Hospital Lab (Internal) : [address] ? ? BLD Low Hgb 9.4 g/dL 12.0-16 Final [place] .0 g/dL [facility] Hospital Lab (Internal) : [address] ? ? BLD Low Hct 30.6 % 37.0-47 Final [place] .0 % [facility] Lab (Internal) : [address] ? ? BLD ? Mcv 88.7 fL 80.0-96 Final [place] .0 fL [facility] Lab (Internal) : [address] [place] ? ? BLD ? Mch 27.2 pg 26.0-32 Final [place] .0 pg [facility] Lab (Internal) : [address] [place] ? ? BLD Low Mchc 30.7 31.0-35 Final [place] g/dL .0 g/dL [facility] Lab (Internal) : [address] [place] ? ? BLD High Rdw 16.3 % 11.5-14 Final [place] .5 % [facility] Lab (Internal) : [address] ? ? BLD ? Plt 162 130-450 Final [place] 10*3/uL 10*3/uL [facility] Lab (Internal) : [address] [place] ? ? BLD ? Anc 6.77 ? Final [place] 10*3/uL [facility] Lab (Internal) : [address] ? ? BLD High Nlr 5.46 0.00-3. Final [place] 20 [facility] Lab (Internal) : [address] [place] ? ? BLD High Neutro 75.5 % 40.0-75 Final [place] .0 % [facility] Lab (Internal) : [address] [place] ? ? BLD Low Lymph 13.8 % 20.0-50 Final [place] .0 % [facility] Lab (Internal) : [address] [place] ? ? BLD ? [facility] 7.2 % 2.0-10. Final [place] 0 % [facility] Lab (Internal) : [address] [place] ? ? BLD ? Eos 2.0 % 1.0-6.0 Final [place] % [facility] Lab (Internal) : [address] [place] ? ? BLD ? Baso 0.3 % 0.0-1.0 Final [place] % [facility] Lab (Internal) : [address] [place] ? ? BLD High Ig 1.2 % 0.0-0.9 Final [place] % [facility] Lab (Internal) : [address] [place] 09/20/2019 Lipid Panel, S ? Chol 117 50-200 Final [place] Serum mg/dL mg/dL [facility] Lab (Internal) : [address] ? ? S High Trig 182 10-150 Final [place] mg/dL mg/dL [facility] Lab (Internal) : [address] ? ? S Low Hdl 36 mg/dL 40-60 Final [place] mg/dL [facility] Lab (Internal) : [address] ? ? S ? Ldl 45 mg/dL 0-130 Final [place] mg/dL [facility] Lab (Internal) : [address] 09/20/2019 Renal Function S High g/r 135 74-106 Final [place] Panel, Serum mg/dL mg/dL [facility] Hospital Lab (Internal) : [address] ? ? S High Bun 26 mg/dL 7-17 Final [place] mg/dL [facility] Lab (Internal) : [address] ? ? S High Crea 1.10 0.52-1. Final [place] mg/dL 04 [place] mg/dL Hospital Lab (Internal) : [address] ? ? S ? Ca 9.1 8.4-10. Final [place] mg/dL 2 mg/dL [facility] Lab (Internal) : [address] ? ? S ? Phos 3.4 2.5-4.5 Final [place] mg/dL mg/dL [facility] Lab (Internal) : [address] ? ? S ? Na 141 137-145 Final [place] mmol/L mmol/L [facility] Lab (Internal) : [address] ? ? S ? K 4.0 3.5-5.1 Final [place] mmol/L mmol/L [facility] Lab (Internal) : [address] ? ? S ? Cl 105 98-107 Final [place] mmol/L mmol/L [facility] Lab (Internal) : [address] ? ? S ? Tco2 29.0 22.0-30 Final [place] mmol/L .0 [place] mmol/L Hospital Lab (Internal) : [address] ? ? S ? Alb 3.6 g/dL 3.5-5.0 Final [place] g/dL [facility] Lab (Internal) : [address] ? ? S Low GFR (Calc) 48 >89 Final [place] [facility] (Internal[facility] : [address] 09/20/2019 Iron, Serum SERUM ? Iron 47 ug/dL 37-170 Final [place] ug/dL [facility] Lab (Internal) : [address] 09/20/2019 CMP, Serum or S High g/r 135 74-106 Final [place] Plasma mg/dL mg/dL [facility] Lab (Internal) : [address] ? ? S High Bun 26 mg/dL 7-17 Final [place] mg/dL [facility] Lab (Internal) : [address] ? ? S High Crea 1.10 0.52-1. Final [place] mg/dL 04 [place] mg/dL Hospital Lab (Internal) : [address] ? ? S ? Ca 9.1 8.4-10. Final [place] mg/dL 2 mg/dL [facility] Lab (Internal) : [address] ? ? S ? Na 141 137-145 Final [place] mmol/L mmol/L [facility] Lab (Internal) : [address] ? ? S ? K 4.0 3.5-5.1 Final [place] mmol/L mmol/L [facility] Lab (Internal) : [address] ? ? S ? Cl 105 98-107 Final [place] mmol/L mmol/L [facility] Lab (Internal) : [address] ? ? S ? Tco2 29.0 22.0-30 Final [place] mmol/L .0 [place] mmol/L Hospital Lab (Internal) : [address] ? ? S ? Tp 7.0 g/dL 6.3-8.2 Final [place] g/dL [facility] Lab (Internal) : [address] ? ? S ? Alb 3.6 g/dL 3.5-5.0 Final [place] g/dL [facility] Lab (Internal) : [address] ? ? S ? Tbil 0.6 0.2-1.3 Final [place] mg/dL mg/dL [facility] Lab (Internal) : [address] ? ? S ? Alp 71 U/L 38-126 Final [place] U/L [facility] Lab (Internal) : [address] ? ? S ? Alt (Sgpt) 14 U/L 9-52 Final [place] U/L [facility] Lab (Internal) : [address] ? ? S ? Ast (Sgot) 23 U/L 14-36 Final [place] U/L [facility] Hospital Lab (Internal) : [address] [place] 09/20/2019 HbA1C BLD High Ha1C 6.6 % 4.0-6.0 Final [place] (Hemoglobin % Count ry a1C), Blood Hospi refugio Lab (Internal) : [address] [place] 09/20/2019 T4, Free, S ? Ft4 1.61 0.78-2. Final No rth Serum NG/dL 19 [place] NG/dL Hospital Lab (Internal) : [address] [place] 09/20/2019 RBC BLD ? Aniso small ? Final [place] Morphology, Count ry Blood Hospital Lab (Internal) : [address] [place] 09/20/2019 TSH, Serum or S ? Tsh 0.78 0.47-4. Final [place] Plasma u[IU]/mL 68 [place] u[IU]/m Hospital L Lab (Internal) : [address] [place] 09/20/2019 Ferritin, S ? Ferr 82 NG/mL 11-264 Final N orth Serum or NG/mL [place] Plasma Hospital Lab (Internal) : [address] [place] 09/20/2019 BNP (B-type S High Nt-probnp 2660 0-450 Purnima l [place] Natriuretic pg/mL pg/mL Count ry Peptide), [facility] Pro[facility]one Lab N-terminal, (Inte rnal) Quant, : [address] Immunoassay, Prou ty , Blood [place] 09/20/2019 Folate, Serum S ? Folate 6.86 2.76-20 Purnima l [place] NG/mL .00 [place] NG/mL Hospital Lab (Internal) : [address] [place] 09/20/2019 ESR BLD High Esr 55 mm/h 0-30 Final [place] (Erythrocyte mm/h Coun try Sedimentation Hos pital Rate), Blood Lab (Internal) : [address] [place] 09/20/2019 Vitamin B12, S High Vit B12 978.0 239.0-9 Purnima l [place] Serum pg/mL 31.0 [place] pg/mL Hospital Lab (Internal) : [address] 09/20/2019 Vitamin D, S ? 25-Hydroxy <4.0 ? Purnima l [place] 25-Hydroxy, D2 NG/mL Count ry Total, Serum Hosp ital Lab (Internal) : [address] ? ? S ? 25-Hydroxy 25 NG/mL ? Final Nor [place] D3 [place] Hospital Lab (Internal) : [address] ? ? S ? 25-Hydroxy D 25 NG/mL ? Final N orth Total [place] Hospital Lab (Internal) : [address] 08/19/2019 Drug Screen, UR ? Thc negative neg (50 P[place]ima [place] Urine NG/mL NG/mL) [place] NG/mL Hospital Lab (Internal) : [address] [place] ? ? UR ? Pcp negative neg (25 Final [place] NG/mL) [facility] Hospital Lab (Internal) : [address], [place] ? ? UR ? Beti negative neg Final [place] (150 [place] NG/mL) Hospital Lab (Internal) : [address], [place] ? ? UR ? Met negative neg Final [place] (500 [place] NG/mL) Hospital Lab (Internal) : [address], [place] ? ? UR ? Opi negative neg Final [place] (100 [place] NG/mL) Hospital Lab (Internal) : [address], [place] ? ? UR ? Amp negative neg Final [place] (500 [place] NG/mL) Hospital Lab (Internal) : [address], [place] ? ? UR ? Bzo negative neg Final [place] (150 [place] NG/mL) Hospital Lab (Internal) : [address], [place] ? ? UR ? Tca negative neg Final [place] (300 [place] NG/mL) Hospital Lab (Internal) : [address], [place] ? ? UR ? Mtd negative neg Final [place] (200 [place] NG/mL) Hospital Lab (Internal) : [address], [place] ? ? UR ? Bar negative neg Final [place] (200 [place] NG/mL) Hospital Lab (Internal) : [address], [place] ? ? UR ? Oxy negative neg Final [place] (100 [place] NG/mL) Hospital Lab (Internal) : [address], [place] ? ? UR ? Ppx negative neg Final [place] (300 [place] NG/mL) Hospital Lab (Internal) : [address], [place] ? ? UR ? Bup negative neg (10 Final [place] NG/mL) [facility] Lab (Internal) : [address] 07/31/2019 CMP, Serum or S High g/r 173 74-106 Final [place] Plasma mg/dL mg/dL [facility] Hospital Lab (Internal) : [address] ? ? S High Bun 42 mg/dL 7-17 Final [place] mg/dL [facility] Hospital Lab (Internal) : [address] ? ? S High Crea 1.20 0.52-1. Final [place] mg/dL 04 [place] mg/dL Hospital Lab (Internal) : [address] ? ? S ? Ca 9.2 8.4-10. Final [place] mg/dL 2 mg/dL [facility] Hospital Lab (Internal) : [address] ? ? S ? Na 140 137-145 Final [place] mmol/L mmol/L [facility] Lab (Internal) : [address] ? ? S ? K 4.9 3.5-5.1 Final [place] mmol/L mmol/L [facility] Hospital Lab (Internal) : [address] ? ? S ? Cl 101 98-107 Final [place] mmol/L mmol/L [facility] Hospital Lab (Internal) : [address] ? ? S ? Tco2 29.0 22.0-30 Final [place] mmol/L .0 [place] mmol/L Hospital Lab (Internal) : [address] ? ? S ? Tp 7.5 g/dL 6.3-8.2 Final [place] g/dL [facility] Lab (Internal) : [address] ? ? S ? Alb 3.9 g/dL 3.5-5.0 Final [place] g/dL [facility] Lab (Internal) : [address] ? ? S ? Tbil 0.6 0.2-1.3 Final [place] mg/dL mg/dL [facility] Hospital Lab (Internal) : [address] ? ? S ? Alp 93 U/L 38-126 Final [place] U/L [facility] Lab (Internal) : [address] ? ? S ? Alt (Sgpt) 20 U/L 9-52 Final [place] U/L [facility] Hospital Lab (Internal) : [address] ? ? S ? Ast (Sgot) 26 U/L 14-36 Final [place] U/L [facility] Lab (Internal) : [address] 07/31/2019 ESR BLD High Esr 40 mm/h 0-30 Final [place] (Erythrocyte mm/h Coun try Sedimentation Hos pital Rate), Blood Lab (Internal) : [address] 06/27/2019 HbA1C BLD ? Ha1C 5.9 % 4.0-6.0 Final [place] (Hemoglobin % Count ry a1C), Blood Hospi refugio Lab (Internal) : [address] 06/27/2019 Iron, Serum SERUM ? Iron 44 ug/dL 37-170 Final [place] ug/dL [facility] Hospital Lab (Internal) : [address] 06/27/2019 T4, Free, S ? Ft4 1.33 0.78-2. Final No rth Serum NG/dL 19 [place] NG/dL Hospital Lab (Internal) : [address] 06/27/2019 CMP, Serum or S High g/r 107 74-106 Final [place] Plasma mg/dL mg/dL [facility] Hospital Lab (Internal) : [address] ? ? S High Bun 31 mg/dL 7-17 Final [place] mg/dL [facility] Hospital Lab (Internal) : [address] ? ? S ? Crea 0.90 0.52-1. Final [place] mg/dL 04 [place] mg/dL Hospital Lab (Internal) : [address] ? ? S ? Ca 9.5 8.4-10. Final [place] mg/dL 2 mg/dL [facility] Hospital Lab (Internal) : [address] ? ? S ? Na 140 137-145 Final [place] mmol/L mmol/L [facility] Hospital Lab (Internal) : [address] ? ? S ? K 4.4 3.5-5.1 Final [place] mmol/L mmol/L [facility] Hospital Lab (Internal) : [address] ? ? S ? Cl 102 98-107 Final [place] mmol/L mmol/L [facility] Hospital Lab (Internal) : [address] ? ? S ? Tco2 24.0 22.0-30 Final [place] mmol/L .0 [place] mmol/L Hospital Lab (Internal) : [address] ? ? S ? Tp 8.0 g/dL 6.3-8.2 Final [place] g/dL [facility] Hospital Lab (Internal) : [address] ? ? S ? Alb 4.0 g/dL 3.5-5.0 Final [place] g/dL [facility] Hospital Lab (Internal) : [address] ? ? S ? Tbil 0.5 0.2-1.3 Final [place] mg/dL mg/dL [facility] Hospital Lab (Internal) : [address] ? ? S ? Alp 105 U/L 38-126 Final [place] U/L [facility] Hospital Lab (Internal) : [address] ? ? S ? Alt (Sgpt) 13 U/L 9-52 Final [place] U/L [facility] Hospital Lab (Internal) : [address] ? ? S ? Ast (Sgot) 36 U/L 14-36 Final [place] U/L [facility] Hospital Lab (Internal) : [address] 06/27/2019 Lipase, Serum S ? Lip 73 U/L 23-300 Final [place] or Plasma U/L [facility] Hospital Lab (Internal) : [address] 06/27/2019 CBC W/ Auto BLD ? Wbc 8.5 5.0-10. Final [place] Diff 10*3/uL 0 [facility] 10*3/uL Hospital Lab (Internal) : [address] ? ? BLD Low Rbc 3.74 4.10-5. Final [place] 10*6/uL 30 [place] 10*6/uL Hospital Lab (Internal) : [address] ? ? BLD Low Hgb 10.1 12.0-16 Final [place] g/dL .0 g/dL [facility] Hospital Lab (Internal) : [address] ? ? BLD Low Hct 32.7 % 37.0-47 Final [place] .0 % [facility] Hospital Lab (Internal) : [address] ? ? BLD ? Mcv 87.4 fL 80.0-96 Final [place] .0 fL [facility] Hospital Lab (Internal) : [address] ? ? BLD ? Mch 27.0 pg 26.0-32 Final [place] .0 pg [facility] Hospital Lab (Internal) : [address] ? ? BLD Low Mchc 30.9 31.0-35 Final [place] g/dL .0 g/dL [place] Hospital Lab (Internal) : [address] ? ? BLD High Rdw 16.2 % 11.5-14 Final [place] .5 % [facility] Hospital Lab (Internal) : [address] ? ? BLD ? Plt 167 130-450 Final [place] 10*3/uL 10*3/uL [facility] Hospital Lab (Internal) : [address] [place] ? ? BLD ? Anc 6.28 ? Final [place] 10*3/uL [facility] Hospital Lab (Internal) : [address] [place] ? ? BLD High Nlr 4.76 0.00-3. Final [place] 20 [facility] Hospital Lab (Internal) : [address] ? ? BLD ? Neutro 73.9 % 40.0-75 Final [place] .0 % [facility] Hospital Lab (Internal) : [address] ? ? BLD Low Lymph 15.5 % 20.0-50 Final [place] .0 % [facility] Hospital Lab (Internal) : [address] ? ? BLD ? [facility] 6.8 % 2.0-10. Final [place] 0 % [facility] Lab (Internal) : [address] ? ? BLD ? Eos 2.8 % 1.0-6.0 Final [place] % [facility] Hospital Lab (Internal) : [address] ? ? BLD ? Baso 0.5 % 0.0-1.0 Final [place] % [facility] Lab (Internal) : [address] ? ? BLD ? Ig 0.5 % 0.0-0.9 Final [place] % [facility] Hospital Lab (Internal) : [address] 06/27/2019 Ferritin, S ? Ferr 119 11-264 Final Nor th Serum or NG/mL NG/mL [facility] Plasma Hospital Lab (Internal) : [address] 06/27/2019 TSH, Serum or S ? Tsh 1.56 0.47-4. Final [place] Plasma u[IU]/mL 68 [place] u[IU]/m Hospital L Lab (Internal) : [address] 06/27/2019 BNP (B-type S High Nt-probnp 2480 0-450 Purnima [place] Natriuretic pg/mL pg/mL Count ry Peptide), Hospita l Prohormone Lab N-terminal, (Inte rnal) Quant, : [address] Immunoassay, Prou [address]ullen [place], Blood [place] 06/27/2019 Vitamin B12, S High Vit B12 982.0 239.0-9 Purnima l [place] Serum pg/mL 31.0 [place] pg/mL Hospital Lab (Internal) : [address] 06/27/2019 ESR BLD High Esr 73 mm/h 0-30 Final [place] (Erythrocyte mm/h Coun try Sedimentation Hos pital Rate), Blood Lab (Internal) : [address] 06/27/2019 RBC BLD ? Aniso small ? Final [place] Morphology, Count ry Blood Hospital Lab (Internal) : [address] ? ? BLD ? Stomat rare ? Final [facility] Hospital Lab (Internal) : [address] 06/27/2019 T3, Total, S Low T3, Total 94 NG/dL 97-169 Fin al [place] Serum NG/dL [facility] Lab (Internal) : [address] 02/04/2019 CMP, Serum or S High g/r 115 74-106 Final [place] Plasma mg/dL mg/dL [facility] Hospital Lab (Internal) : [address] ? ? S High Bun 31 mg/dL 7-17 Final [place] mg/dL [facility] Hospital Lab (Internal) : [address] ? ? S High Crea 1.10 0.52-1. Final [place] mg/dL 04 [place] mg/dL Hospital Lab (Internal) : [address] ? ? S - Ca 9.4 8.4-10. Final [place] mg/dL 2 mg/dL [facility] Hospital Lab (Internal) : [address] ? ? S - Na 139 137-145 Final [place] mmol/L mmol/L [facility] Hospital Lab (Internal) : [address] ? ? S - K 3.9 3.5-5.1 Final [place] mmol/L mmol/L [facility] Hospital Lab (Internal) : [address] ? ? S - Cl 100 98-107 Final [place] mmol/L mmol/L [facility] Lab (Internal) : [address] ? ? S - Tco2 28.0 22.0-30 Final [place] mmol/L .0 [facility] mmol/L Hospital Lab (Internal) : [address] ? ? S - Tp 7.5 g/dL 6.3-8.2 [place] g/dL [facility] (Internal) : [address] ? ? S - Alb 3.7 g/dL 3.5-5.0 Final [place] g/dL [facility] (Internal) : [address] ? ? S - Tbil 0.4 0.2-1.3 Final [place] mg/dL mg/dL [facility] (Internal) : [address] ? ? S - Alp 89 U/L 38-126 Final [place] U/L [facility] (Internal) : [address] ? ? S - Alt (Sgpt) 22 U/L 9-52 Final [place] U/L [facility] (Internal) : [address] ? ? S - Ast (Sgot) 32 U/L 14-36 Final [place] U/L [facility] (Internal) : [address] 02/04/2019 Iron, Serum SERUM - Iron 40 ug/dL 37-170 Final [place] ug/dL [facility] (Internal) : [address] 02/04/2019 CBC W/ Auto BLD - Wbc 7.9 5.0-10. Final [place] Diff 10*3/uL 0 [facility] 10*3/uL Hospital Lab (Internal) : [address] ? ? BLD Low Rbc 3.60 4.10-5. Final [place] 10*6/uL 30 [place] 10*6/uL Hospital Lab (Internal) : [address] ? ? BLD Low Hgb 9.8 g/dL 12.0-16 Final [place] .0 g/dL [facility] (Internal) : [address] ? ? BLD Low Hct 30.9 % 37.0-47 Final [place] .0 % [facility] (Internal) : [address] ? ? BLD - Mcv 85.8 fL 80.0-96 Final [place] .0 fL [facility] (Internal[facility] : [address] ? ? BLD - Mch 27.2 pg 26.0-32 Final [place] .0 pg [facility] (Internal) : [address] ? ? BLD - Mchc 31.7 31.0-35 Final [place] g/dL .0 g/dL [facility] (Internal) : [address] ? ? BLD High Rdw 15.9 % 11.5-14 Final [place] .5 % [facility] (Internal) : [address] ? ? BLD - Plt 177 130-450 Final [place] 10*3/uL 10*3/uL [facility] (Internal) : [address] ? ? BLD - Anc 5.22 ? Final [place] 10*3/uL [facility] (Internal) : [address] ? ? BLD - Neutro 66.3 % 40.0-75 Final [place] .0 % [facility] (Internal) : [address] ? ? BLD - Lymph 22.6 % 20.0-50 Final [place] .0 % [facility] (Internal) : [address] ? ? BLD - [facility] 7.8 % 2.0-10. Final [place] 0 % [facility] (Internal) : [address] ? ? BLD - Eos 2.5 % 1.0-6.0 Final [place] % [facility] (Internal) : [address] ? ? BLD - Baso 0.4 % 0.0-1.0 Final [place] % [facility] (Internal) : [address] ? ? BLD - Ig 0.4 % 0.0-0.9 Final [place] % [facility] (Internal) : [address] 02/04/2019 RBC BLD - [place] small ? Final [place] Morphology, Count ry Blood Hospital Lab (Internal) : [address] ? ? BLD - Macro occasion ? Final [place] al [facility] (Internal) : [address] 02/04/2019 TSH, Serum or S - Tsh 1.27 0.47-4. Final [place] Plasma u[IU]/mL 68 [place] u[IU]/m Hospital L Lab (Internal) : [address] 02/04/2019 Ferritin, S - Ferr 85 NG/mL 11-264 Final N orth Serum or NG/mL [facility] Hospital Lab (Internal) : [address] 02/04/2019 ESR BLD High Esr 58 mm/h 0-30 Final [place] (Erythrocyte mm/h Coun try Sedimentation Hos pital Rate), Blood Lab (Internal) : [address] 01/17/2019 BMP, Serum or S High g/r 113 74-106 Final [place] Plasma mg/dL mg/dL [facility] (Internal) : [address] ? ? S High Bun 21 mg/dL 7-17 Final [place] mg/dL [facility] (Internal) : [address] ? ? S - Crea 0.90 0.52-1. Final [place] mg/dL 04 [place] mg/dL Hospital Lab (Internal) : [address] ? ? S - Ca 9.6 8.4-10. Final [place] mg/dL 2 mg/dL [facility] (Internal) : [address] [place] ? ? S - Na 141 137-145 Final [place] mmol/L mmol/L [facility] (Internal) : [address] ? ? S - K 3.9 3.5-5.1 Final [place] mmol/L mmol/L [facility] (Internal) : [address] ? ? S - Cl 102 98-107 Final [place] mmol/L mmol/L [facility] (Internal) : [address] ? ? S - Tco2 30.0 22.0-30 Final [place] mmol/L .0 [place] mmol/L Hospital Lab (Internal) : [address] 12/13/2018 Culture UR - Final microbio ? Final [place] ([place] Count), Urine results Ho spital Lab (Internal) : [address] 12/13/2018 Urinalysis, ? Color Yellow ? ? P _nc Dipstick, Primary Reflex [facility] [place]: [address], [place] ? ? ? Appearance Clear ? ? P_nc [facility] [place]: [address], [place] ? ? ? Glucose Normal ? ? P_nc [facility] [place]: [address], [place] ? ? ? Bilirubin Negative ? ? P_nc [facility] [place]: [address], [place] ? ? ? Ketones Negative ? ? P_nc [facility] [place]: [address], [place] ? ? ? Specific 1.010 ? ? P_nc [facility] [place]: [address], [place] ? ? ? Blood Trace ? ? P_nc [facility] [place]: [address], [place] ? ? ? Ph 6.0 ? ? P_nc [facility] [place]: [address], [place] ? ? ? Protein Negative ? ? P_nc [facility] [place]: [address], [place] ? ? ? Urobilinogen 0.2 ? ? P_n c [facility] [place]: [address], [place] ? ? ? Nitrite negative ? ? P_nc [facility] [place]: [address], [place] ? ? ? Leukocyte Negative ? ? P_nc Esterase [facility] [place]: [address], [place] 11/06/2018 CBC W/ Auto BLD - Wbc 8.2 5.0-10. Final [place] Diff 10*3/uL 0 [facility] 10*3/uL Hospital Lab (Internal) : [address] ? ? BLD Low Rbc 4.03 4.10-5. Final [place] 10*6/uL 30 [place] 10*6/uL Hospital Lab (Internal) : [address] ? ? BLD Low Hgb 10.5 12.0-16 Final [place] g/dL .0 g/dL [facility] (Internal) : [address] ? ? BLD Low Hct 34.0 % 37.0-47 Final [place] .0 % [facility] (Internal) : [address] ? ? BLD - Mcv 84.4 fL 80.0-96 Final [place] .0 fL [facility] (Internal) : [address] ? ? BLD - Mch 26.1 pg 26.0-32 Final [place] .0 pg [facility] (Internal) : [address] ? ? BLD Low Mchc 30.9 31.0-35 Final [place] g/dL .0 g/dL [facility] (Internal) : [address] ? ? BLD High Rdw 16.9 % 11.5-14 Final [place] .5 % [facility] (Internal) : [address] ? ? BLD - Plt 188 130-450 Final [place] 10*3/uL 10*3/uL [facility] (Internal) : [address] ? ? BLD - Anc 5.48 ? Final [place] 10*3/uL [facility] (Internal) : [address] ? ? BLD - Neutro 67.1 % 40.0-75 Final [place] .0 % [facility] (Internal) : [address] ? ? BLD - Lymph 21.6 % 20.0-50 Final [place] .0 % [facility] (Internal) : [address] ? ? BLD - [facility] 7.6 % 2.0-10. Final [place] 0 % [facility] (Internal) : [address] ? ? BLD - Eos 2.7 % 1.0-6.0 Final [place] % [facility] (Internal) : [address] ? ? BLD - Baso 0.6 % 0.0-1.0 Final [place] % [facility] (Internal) : [address] ? ? BLD - Ig 0.4 % 0.0-0.9 Final [place] % [facility] (Internal) : [address] 11/06/2018 Drug Screen, UR - Thc negative neg (50 [place] Urine NG/mL NG/mL) [place] NG/mL Hospital Lab (Internal) : [address] ? ? UR - Pcp negative neg (25 Final [place] NG/mL) [facility] (Internal) : [address] ? ? UR - Beti negative neg Final [place] (150 [place] NG/mL) Hospital Lab (Internal) : [address] ? ? UR - Met negative neg Final [place] (500 [place] NG/mL) Hospital Lab (Internal) : [address] ? ? UR - Opi negative neg Final [place] (100 [place] NG/mL) Hospital Lab (Internal) : [address] ? ? UR - Amp negative neg Final [place] (500 [place] NG/mL) Hospital Lab (Internal) : [address] ? ? UR - Bzo negative neg Final [place] (150 [place] NG/mL) Hospital Lab (Internal) : [address] ? ? UR - Tca negative neg Final [place] (300 [place] NG/mL) Hospital Lab (Internal) : [address] ? ? UR - Mtd negative neg Final [place] (200 [place] NG/mL) Hospital Lab (Internal) : [address] ? ? UR - Bar negative neg Final [place] (200 [place] NG/mL) Hospital Lab (Internal) : [address] ? ? UR - Oxy negative neg Final [place] (100 [place] NG/mL) Hospital Lab (Internal) : [address] ? ? UR - Ppx negative neg Final [place] (300 [place] NG/mL) Hospital Lab (Internal) : [address] ? ? UR - Bup negative neg (10 Final [place] NG/mL) [facility] (Internal) : [address] 11/06/2018 CMP, Serum or S High g/r 118 74-106 Final [place] Plasma mg/dL mg/dL [facility] (Internal) : [address] ? ? S High Bun 20 mg/dL 7-17 Final [place] mg/dL [facility] (Internal) : [address] ? ? S - Crea 1.00 0.52-1. Final [place] mg/dL 04 [place] mg/dL Hospital Lab (Internal) : [address] ? ? S - Ca 9.5 8.4-10. Final [place] mg/dL 2 mg/dL [facility] (Internal) : [address] ? ? S - Na 142 137-145 Final [place] mmol/L mmol/L [facility] (Internal) : [address] ? ? S - K 3.8 3.5-5.1 Final [place] mmol/L mmol/L [facility] (Internal) : [address] ? ? S - Cl 103 98-107 Final [place] mmol/L mmol/L [facility] (Internal) : [address] ? ? S - Tco2 27.0 22.0-30 Final [place] mmol/L .0 [facility] mmol/L Hospital Lab (Internal) : [address] ? ? S - Tp 8.0 g/dL 6.3-8.2 Final [place] g/dL [facility] (Internal) : [address] ? ? S - Alb 4.1 g/dL 3.5-5.0 Final [place] g/dL [facility] (Internal) : [address] ? ? S - Tbil 0.5 0.2-1.3 Final [place] mg/dL mg/dL [facility] (Internal) : [address] ? ? S - Alp 95 U/L 38-126 Final [place] U/L [facility] (Internal) : [address] ? ? S - Alt (Sgpt) 11 U/L 9-52 Final [place] U/L [facility] (Internal) : [address] ? ? S High Ast (Sgot) 50 U/L 14-36 Final [place] U/L [facility] (Internal) : [address] 11/06/2018 HbA1C BLD High Ha1C 6.2 % 4.0-6.0 Final [place] (Hemoglobin % Count ry a1C), Blood Hospi refugio Lab (Internal) : [address] 11/06/2018 Iron, Serum SERUM - Iron 47 ug/dL 37-170 Final [place] ug/dL [facility] (Internal) : [address] 11/06/2018 Microalbumin, UR High Malb 33.1 5.0-16. Final [place] Urine mg/L 7 mg/L [facility] (Internal) : [address] ? ? UR Low U-crea, Spot 8 mg/dL 30-125 Final No rth mg/dL [facility] (Internal) : [address] ? ? UR High Microalb/cre 435.5 0.0-30. Final No rth a Ratio ug/mg 0 ug/mg [facility] (Internal) : [address] 11/06/2018 BNP (B-type S High Nt-probnp 2410 0-450 Purnima l [place] Natriuretic pg/mL pg/mL Count ry Peptide), Hospita l Prohormone Lab N-terminal, (Inte rnal) Quant, : 189 Immunoassay, Prou ty , Blood [place] 11/06/2018 RBC BLD - [place] small ? Final [place] Morphology, Count ry Blood Hospital Lab (Internal) : [address] ? ? BLD - Hypo small ? Final Lab (Internal) : [address] ? ? BLD - Micro occasion ? Final [place] al [facility] (Internal) : [address] 11/06/2018 Culture UR - Final microbio ? Final [place] ([place] Count), Urine results Ho spital Lab (Internal) : [address] 11/06/2018 ESR BLD High Esr 53 mm/h 0-30 Final [place] (Erythrocyte mm/h Coun try Sedimentation Hos pital Rate), Blood Lab (Internal) : [address] 10/04/2018 Creatinine, S - Crea 0.90 0.52-1. Final [place] Serum or mg/dL 04 [facility] Plasma mg/dL Hospital Lab (Internal) : [address] 08/16/2018 Drug Screen, UR - Thc negative neg (50 [place] Urine NG/mL NG/mL) [place] NG/mL Hospital Lab (Internal) : [address] ? ? UR - Pcp negative neg (25 Final [place] NG/mL) [facility] (Internal) : [address] ? ? UR - Beti negative neg Final [place] (150 [place] NG/mL) Hospital Lab (Internal) : [address] ? ? UR - Met negative neg Final [place] (500 [place] NG/mL) Hospital Lab (Internal) : [address] ? ? UR - Opi negative neg Final [place] (100 [place] NG/mL) Hospital Lab (Internal) : [address] ? ? UR - Amp negative neg Final [place] (500 [place] NG/mL) Hospital Lab (Internal) : [address] ? ? UR - Bzo negative neg Final [place] (150 [place] NG/mL) Hospital Lab (Internal) : [address] ? ? UR - Tca negative neg Final [place] (300 [place] NG/mL) Hospital Lab (Internal) : [address] ? ? UR - Mtd negative neg Final [place] (200 [place] NG/mL) Hospital Lab (Internal) : [address] ? ? UR - Bar negative neg Final [place] (200 [place] NG/mL) Hospital Lab (Internal) : [address] ? ? UR - Oxy negative neg Final [place] (100 [place] NG/mL) Hospital Lab (Internal) : [address] ? ? UR - Ppx negative neg Final [place] (300 [place] NG/mL) Hospital Lab (Internal) : [address] ? ? UR - Bup negative neg (10 Final [place] NG/mL) [facility] (Internal) : [address] 06/23/2018 CBC W/ Auto BLD - Wbc 7.2 5.0-10. Final [place] Diff 10*3/uL 0 [facility] 10*3/uL Hospital Lab (Internal) : [address] ? ? BLD Low Rbc 3.19 4.10-5. Final [place] 10*6/uL 30 [place] 10*6/uL Hospital Lab (Internal) : [address] ? ? BLD Low Hgb 7.5 g/dL 12.0-16 Final [place] .0 g/dL [facility] (Internal) : [address] ? ? BLD Low Hct 25.3 % 37.0-47 Final [place] .0 % [facility] Lab (Internal) : [address] ? ? BLD Low Mcv 79.3 fL 80.0-96 Final [place] .0 fL [facility] (Internal) : [address] ? ? BLD Low Mch 23.5 pg 26.0-32 Final [place] .0 pg [facility] Lab (Internal) : [address] ? ? BLD Low Mchc 29.6 31.0-35 Final [place] g/dL .0 g/dL [facility] Lab (Internal) : [address] [place] ? ? BLD High Rdw 17.2 % 11.5-14 Final [place] .5 % [facility] (Internal) : [address] ? ? BLD - Plt 208 130-450 Final [place] 10*3/uL 10*3/uL [facility] (Internal) : [address] ? ? BLD - Anc 4.68 ? Final [place] 10*3/uL [facility] (Internal) : [address] ? ? BLD - Neutro 64.8 % 40.0-75 Final [place] .0 % [facility] (Internal) : [address] [place] ? ? BLD - Lymph 21.3 % 20.0-50 Final [place] .0 % [facility] (Internal) : [address] [place] ? ? BLD - [facility] 8.4 % 2.0-10. Final [place] 0 % [facility] (Internal) : [address] ? ? BLD - Eos 4.3 % 1.0-6.0 Final [place] % [facility] (Internal) : [address] ? ? BLD - Baso 0.4 % 0.0-1.0 Final [place] % [facility] (Internal) : [address] ? ? BLD - Ig 0.8 % 0.0-0.9 Final [place] % [facility] (Internal) : [address] 06/23/2018 BMP, Serum or S High g/r 111 74-106 Final [place] Plasma mg/dL mg/dL [facility] (Internal) : [address] ? ? S - Bun 13 mg/dL 7-17 Final [place] mg/dL [facility] (Internal) : [address] ? ? S - Crea 0.70 0.52-1. Final [place] mg/dL 04 [place] mg/dL Hospital Lab (Internal) : [address] ? ? S - Ca 9.0 8.4-10. Final [place] mg/dL 2 mg/dL [facility] Lab (Internal) : [address] ? ? S - Na 137 137-145 Final [place] mmol/L mmol/L [facility] (Internal) : [address] ? ? S - K 3.5 3.5-5.1 Final [place] mmol/L mmol/L [facility] (Internal) : [address] ? ? S - Cl 99 98-107 Final [place] mmol/L mmol/L [facility] (Internal) : [address] ? ? S High Tco2 32.0 22.0-30 Final [place] mmol/L .0 [facility] mmol/L Hospital Lab (Internal) : [address] 06/23/2018 RBC BLD - [place] moderate ? Final [place] h Morphology, Count Blood Hospital Lab (Internal) : [address] ? ? BLD - Hypo moderate ? Final [facility] Hospital Lab (Internal) : [address] ? ? BLD - Micro moderate ? Final Lab (Internal) : [address] 06/22/2018 CBC W/ Auto BLD - Wbc 9.2 5.0-10. Final [place] Diff 10*3/uL 0 [facility] 10*3/uL Hospital Lab (Internal) : [address] [place] ? ? BLD Low Rbc 3.14 4.10-5. Final [place] 10*6/uL 30 [facility] 10*6/uL Hospital Lab (Internal) : [address] [place] ? ? BLD Low Hgb 7.6 g/dL 12.0-16 Final [place] .0 g/dL [facility] Lab (Internal) : [address] ? ? BLD Low Hct 24.8 % 37.0-47 Final [place] .0 % [facility] Lab (Internal) : [address] [place] ? ? BLD Low Mcv 79.0 fL 80.0-96 Final [place] .0 fL [facility] Lab (Internal) : [address] ? ? BLD Low Mch 24.2 pg 26.0-32 Final [place] .0 pg [facility] Lab (Internal) : [address] ? ? BLD Low Mchc 30.6 31.0-35 Final [place] g/dL .0 g/dL [facility] Lab (Internal) : [address] ? ? BLD High Rdw 17.4 % 11.5-14 Final [place] .5 % [facility] Lab (Internal) : [address] ? ? BLD - Plt 204 130-450 Final [place] 10*3/uL 10*3/uL [facility] (Internal) : [address] ? ? BLD - Anc 7.16 ? Final [place] 10*3/uL [facility] (Internal) : [address] ? ? BLD High Neutro 77.5 % 40.0-75 Final [place] .0 % [facility] (Internal) : [address] ? ? BLD Low Lymph 12.5 % 20.0-50 Final [place] .0 % [facility] (Internal) : [address] ? ? BLD - [facility] 6.6 % 2.0-10. Final [place] 0 % [facility] Lab (Internal) : [address] ? ? BLD - Eos 2.4 % 1.0-6.0 Final [place] % [facility] Lab (Internal) : [address] ? ? BLD - Baso 0.3 % 0.0-1.0 Final [place] % [facility] Lab (Internal) : [address] ? ? BLD - Ig 0.7 % 0.0-0.9 Final [place] % [facility] Lab (Internal) : [address] 06/22/2018 BMP, Serum or S High g/r 129 74-106 Final [place] Plasma mg/dL mg/dL [facility] Lab (Internal) : [address] [place] ? ? S - Bun 12 mg/dL 7-17 Final [place] mg/dL [facility] (Internal) : [address] [place] ? ? S - Crea 0.70 0.52-1. Final [place] mg/dL 04 [place] mg/dL Hospital Lab (Internal) : [address] [place] ? ? S - Ca 8.9 8.4-10. Final [place] mg/dL 2 mg/dL [facility] Lab (Internal) : [address] [place] ? ? S - Na 137 137-145 Final [place] mmol/L mmol/L [facility] Lab (Internal) : [address] [place] ? ? S - K 3.8 3.5-5.1 Final [place] mmol/L mmol/L [facility] Lab (Internal) : [address] ? ? S - Cl 101 98-107 Final [place] mmol/L mmol/L [facility] Lab (Internal) : [address] ? ? S - Tco2 30.0 22.0-30 Final [place] mmol/L .0 [facility] mmol/L Hospital Lab (Internal) : [address] 06/22/2018 RBC BLD - [place] small ? Final [place] Morphology, Count ry Blood Hospital Lab (Internal) : [address] ? ? BLD - Micro small ? Final [facility] Hospital Lab (Internal) : [address] 06/21/2018 CBC W/ Auto BLD - Wbc 8.5 5.0-10. Final [place] Diff 10*3/uL 0 [facility] 10*3/uL Hospital Lab (Internal) : [address] ? ? BLD Low Rbc 3.25 4.10-5. Final [place] 10*6/uL 30 [facility] 10*6/uL Hospital Lab (Internal) : [address] ? ? BLD Low Hgb 7.8 g/dL 12.0-16 Final [place] .0 g/dL [facility] Lab (Internal) : [address] ? ? BLD Low Hct 26.0 % 37.0-47 Final [place] .0 % [facility] Lab (Internal) : [address] ? ? BLD - Mcv 80.0 fL 80.0-96 Final [place] .0 fL [facility] Lab (Internal) : [address] ? ? BLD Low Mch 24.0 pg 26.0-32 Final [place] .0 pg [facility] Lab (Internal) : [address] ? ? BLD Low Mchc 30.0 31.0-35 Final [place] g/dL .0 g/dL [facility] Lab (Internal) : [address] ? ? BLD High Rdw 17.4 % 11.5-14 Final [place] .5 % [facility] Lab (Internal) : [address] ? ? BLD - Plt 203 130-450 Final [place] 10*3/uL 10*3/uL [facility] Lab (Internal) : [address] ? ? BLD - Anc 6.39 ? Final [place] 10*3/uL [facility] Lab (Internal) : [address] [place] ? ? BLD High Neutro 75.1 % 40.0-75 Final [place] .0 % [facility] Lab (Internal) : [address] ? ? BLD Low Lymph 11.1 % 20.0-50 Final [place] .0 % [facility] (Internal) : [address] ? ? BLD - [facility] 9.0 % 2.0-10. Final [place] 0 % [facility] Lab (Internal) : [address] ? ? BLD - Eos 3.7 % 1.0-6.0 Final [place] % [facility] Lab (Internal) : [address] ? ? BLD - Baso 0.4 % 0.0-1.0 Final [place] % [facility] Lab (Internal) : [address] ? ? BLD - Ig 0.7 % 0.0-0.9 Final [place] % [facility] Lab (Internal) : [address] 06/21/2018 BMP, Serum or S - g/r 106 74-106 Final [place] Plasma mg/dL mg/dL [facility] (Internal) : [address] [place] ? ? S - Bun 16 mg/dL 7-17 Final [place] mg/dL [facility] Lab (Internal) : [address] ? ? S - Crea 0.90 0.52-1. Final [place] mg/dL 04 [place] mg/dL Hospital Lab (Internal) : [address] [place] ? ? S - Ca 8.8 8.4-10. Final [place] mg/dL 2 mg/dL [facility] Lab (Internal) : [address] [place] ? ? S - Na 138 137-145 Final [place] mmol/L mmol/L [facility] Lab (Internal) : [address] [place] ? ? S Low K 3.3 3.5-5.1 Final [place] mmol/L mmol/L [facility] Lab (Internal) : [address] [place] ? ? S - Cl 99 98-107 Final [place] mmol/L mmol/L [facility] Hospital Lab (Internal) : [address] [place] ? ? S High Tco2 32.0 22.0-30 Final [place] mmol/L .0 [facility] mmol/L Hospital Lab (Internal) : [address] 06/21/2018 RBC BLD - Aniso small ? Final [place] Morphology, Count ry Blood Hospital Lab (Internal) : [address] ? ? BLD - Hypo small ? Final [facility] Hospital Lab (Internal) : [address] ? ? BLD - Micro occasion ? Final [facility] (Internal) : [address] ? ? BLD - Poik occasion ? Final [facility] [hpf] [facility] Lab (Internal) : [address] 06/20/2018 CBC W/ Auto BLD - Wbc 9.4 5.0-10. Final [place] Diff 10*3/uL 0 [facility] 10*3/uL Hospital Lab (Internal) : [address] ? ? BLD Low Rbc 3.45 4.10-5. Final [place] 10*6/uL 30 [facility] 10*6/uL Hospital Lab (Internal) : [address] ? ? BLD Low Hgb 8.3 g/dL 12.0-16 Final [place] .0 g/dL [facility] Lab (Internal) : [address] ? ? BLD Low Hct 27.2 % 37.0-47 Final [place] .0 % [facility] Lab (Internal) : [address] ? ? BLD Low Mcv 78.8 fL 80.0-96 Final [place] .0 fL [facility] Lab (Internal) : [address] ? ? BLD Low Mch 24.1 pg 26.0-32 Final [place] .0 pg [facility] Lab (Internal) : [address] ? ? BLD Low Mchc 30.5 31.0-35 Final [place] g/dL .0 g/dL [facility] Hospital Lab (Internal) : [address] ? ? BLD High Rdw 17.6 % 11.5-14 Final [place] .5 % [facility] Lab (Internal) : [address] ? ? BLD - Plt 216 130-450 Final [place] 10*3/uL 10*3/uL [facility] Lab (Internal) : [address] ? ? BLD - Anc 6.71 ? Final [place] 10*3/uL [facility] ([facility] : [address] [place] ? ? BLD - Neutro 71.6 % 40.0-75 Final [place] .0 % [facility] (Internal[facility] : [address] [place] ? ? BLD Low Lymph 16.5 % 20.0-50 Final [place] .0 % [facility] (Internal) : [address] ? ? BLD - [facility] 10.0 % 2.0-10. Final [place] 0 % [facility] (Internal) : [address] ? ? BLD - Eos 1.0 % 1.0-6.0 Final North % [facility] (Internal) : [address] ? ? BLD - Baso 0.4 % 0.0-1.0 Final North % [facility] Lab (Internal) : [address] ? ? BLD - Ig 0.5 % 0.0-0.9 Final [place] % [facility] Lab (Internal) : [address] [place] 06/20/2018 Rapid Flu NASAL - Final microbio ? Final N orth (A+B) logy [facility] Hospital Lab (Internal) : [address] [place] 06/20/2018 BMP, Serum or S Low g/r 68 mg/dL 74-106 Purnima l [place] Plasma mg/dL [facility] Hospital Lab (Internal) : [address] [place] ? ? S High Bun 20 mg/dL 7-17 Final [place] mg/dL [facility] Hospital Lab (Internal) : [address] [place] ? ? S - Crea 1.00 0.52-1. Final [place] mg/dL 04 [facility] mg/dL Hospital Lab (Internal) : [address] [place] ? ? S - Ca 9.2 8.4-10. Final [place] mg/dL 2 mg/dL [facility] Lab (Internal) : [address] [place] ? ? S - Na 137 137-145 Final [place] mmol/L mmol/L [facility] Lab (Internal) : [address] [place] ? ? S - K 3.7 3.5-5.1 Final [place] mmol/L mmol/L [facility] (Internal) : [address] [place] ? ? S - Cl 98 98-107 Final [place] mmol/L mmol/L [facility] Lab (Internal) : [address] [place] ? ? S High Tco2 31.0 22.0-30 Final [place] mmol/L .0 [facility] mmol/L Hospital Lab (Internal) : [address] [place] 06/20/2018 RBC BLD - Aniso small ? Final [place] Morphology, Count ry Blood Hospital Lab (Internal) : [address] [place] ? ? BLD - Hypo occasion ? Final [facility] (Internal) : [address] [place] ? ? BLD - Micro small ? Final [facility] Hospital Lab (Internal) : [address] [place] ? ? BLD - Poik small ? Final [place] [hpf] [facility] Lab (Internal) : [address] [place] 06/20/2018 Troponin I, S - Trop <0.06 0.00-0. Final [place] Serum or NG/mL [address] [place] [address] Plasma NG/mL Hospital Lab (Internal) : [address] [place] 06/20/2018 Urinalysis, UR - UA-color yellow pale Final [place] Dipstick, yellow [facility] ital Lab (Internal) : [address] [place] ? ? UR ABNORMAL UA-appear hazy clear Final Nort h [facility] Hospital Lab (Internal) : [address] ? ? UR - UA-spec Grav 1.020 1.003-1 Final No rth .035 [facility] Lab (Internal) : [address] ? ? UR - UA-pH 5.5 [pH] 4.6-8.0 Final [place] [pH] [facility] Lab (Internal) : [address] ? ? UR - UA-leuk Est negative negativ Final N orth [facility] Hospital Lab (Internal) : [address] ? ? UR - UA-nitrite negative negativ Final No rth e [facility] Lab (Internal) : [address] ? ? UR - UA-prot negative negativ Final [facility] Lab (Internal) : [address] ? ? UR - UA-gluc negative negativ Final [facility] Lab (Internal) : [address] ? ? UR - UA-ketone negative negativ Final Nor [facility] Lab (Internal) : [address] ? ? UR - UA-urobil normal normal Final Lab (Internal) : [address] ? ? UR - UA-bili negative negativ Final [facility] Lab (Internal) : [address] ? ? UR - UA-blood negative negativ Final Nort h [facility] Lab (Internal) : [address] 06/20/2018 Urinalysis, UR ABNORMAL UA-WBC 3-5 0-3 Final [place] Microscopic [hpf] [hpf] Count [facility] Lab (Internal) : [address] ? ? UR - UA-RBC 0-2 0-2 Final [place] [hpf] [hpf] [facility] Lab (Internal) : [address] ? ? UR ABNORMAL UA-bacteria many none Final No rth [hpf] seen [facility] [[facility]] Hospital Lab (Internal) : [address] ? ? UR ABNORMAL UA-epithelia few none Final N orth l [hpf] seen [facility] [[facility]] [facility] Lab (Internal) : [address] ? ? UR ABNORMAL UA-mucus few none Final [place] [hpf] seen [facility] [[facility]] Hospital Lab (Internal) : [address] ? ? UR - Amorph Cryst few ? Final Nor th [hpf] [facility] Lab (Internal) : [address] ? ? UR - Hyaline C few ? Final [place] [hpf] [facility] Lab (Internal) : [address] 06/20/2018 Culture UR - Final microbio ? Final Nor ([place] Count), Urine results Ho spital Lab (Internal) : [address] 06/20/2018 Procalcitonin, - Pct 0.1 0.0-0.5 Purnima l [place] Serum NG/mL NG/mL [facility] Lab (Internal) : [address] 06/20/2018 TSH, Serum or S - Tsh 1.51 0.47-4. Final [place] Plasma u[IU]/mL 68 [place] u[IU]/m Hospital L Lab (Internal) : [address] 05/25/2018 Urinalysis, UR - UA-color yellow pale Final [facility] Lab (Internal) : [address] ? ? UR ABNORMAL UA-appear hazy clear Final [facility] Lab (Internal) : [address] ? ? UR - UA-spec Grav 1.010 1.003-1 Final No rth .035 [facility] Lab (Internal) : [address] ? ? UR - UA-pH 6.0 [pH] 4.6-8.0 Final [place] [pH] [facility] Lab (Internal) : [address] ? ? UR ABNORMAL UA-leuk Est trace negativ Final [place] [facility] ([facility]) : [address] ? ? UR ABNORMAL UA-nitrite positive negativ Final [facility] Lab (Internal) : [address] ? ? UR - UA-prot negative negativ Final [facility] Lab (Internal) : [address] ? ? UR - UA-gluc negative negativ Final [facility] Lab (Internal) : [address] ? ? UR - UA-ketone negative negativ Final [facility] Lab (Internal) : [address] ? ? UR - UA-urobil normal normal Final Lab (Internal) : [address] ? ? UR - UA-bili negative negativ Final [facility] Lab (Internal) : [address] ? ? UR - UA-blood negative negativ Final [facility] Lab (Internal) : [address] ? ? UR ABNORMAL UA-WBC 5-10 0-3 Final [place] [[facility]] [hpf] [facility] Lab (Internal) : [address] ? ? UR - UA-RBC 0-2 0-2 Final [place] [[facility]] [hpf] [facility] Lab (Internal) : [address] ? ? UR ABNORMAL UA-bacteria many none Final No rth [hpf] seen [facility] [[facility]] Hospital Lab (Internal) : [address] ? ? UR - UA-epithelia rare none Final Nor th l [hpf] seen [facility] [hpf] Hospital Lab (Internal) : [address] ? ? UR - UA-mucus none none Final North seen seen Country [hpf] [hpf] Hospital Lab (Internal) : [address] 05/25/2018 Culture UR - Final microbio ? Final Nor th ([place] log[place] Count), Urine results Ho spital Lab (Internal) : [address] 04/05/2018 CBC W/ Auto BLD - Wbc 9.7 5.0-10. Final [place] Diff 10*3/uL 0 [facility] 10*3/uL Hospital Lab (Internal) : [address] ? ? BLD Low Rbc 3.59 4.10-5. Final [place] 10*6/uL 30 [facility] 10*6/uL Hospital Lab (Internal) : [address] ? ? BLD Low Hgb 8.9 g/dL 12.0-16 Final [place] .0 g/dL [facility] Lab (Internal) : [address] ? ? BLD Low Hct 29.4 % 37.0-47 Final [place] .0 % [facility] Hospital Lab (Internal) : [address] ? ? BLD - Mcv 81.9 fL 80.0-96 Final [place] .0 fL [facility] Lab (Internal) : [address] ? ? BLD Low Mch 24.8 pg 26.0-32 Final [place] .0 pg [facility] Lab (Internal) : [address] [place] ? ? BLD Low Mchc 30.3 31.0-35 Final [place] g/dL .0 g/dL [facility] Lab (Internal) : [address] ? ? BLD High Rdw 18.1 % 11.5-14 Final [place] .5 % [facility] Lab (Internal) : [address] ? ? BLD - Plt 197 130-450 Final [place] 10*3/uL 10*3/uL [facility] Lab (Internal) : [address] ? ? BLD - Anc 7.21 ? Final [place] 10*3/uL [facility] Lab (Internal) : [address] ? ? BLD - Neutro 74.7 % 40.0-75 Final [place] .0 % [facility] Lab (Internal) : [address] ? ? BLD Low Lymph 15.0 % 20.0-50 Final [place] .0 % [facility] Lab (Internal) : [address] ? ? BLD - [facility] 6.1 % 2.0-10. Final [place] 0 % [facility] Lab (Internal) : [address] ? ? BLD - Eos 2.6 % 1.0-6.0 Final [facility] Hospital Lab (Internal) : [address] [place] ? ? BLD - Baso 0.4 % 0.0-1.0 Final [place] % [facility] Lab (Internal) : [address] ? ? BLD High Ig 1.2 % 0.0-0.9 Final [facility] Lab (Internal) : [address] [place] 04/05/2018 HbA1C BLD - Ha1C 5.8 % 4.0-6.0 Final [place] (Hemoglobin % Count ry a1C), Blood Hospi refugio Lab (Internal) : [address] [place] 04/05/2018 RBC BLD - Aniso small ? Final [place] Morphology, Count ry Blood Hospital Lab (Internal) : [address] [place] ? ? BLD - Hypo occasion ? Final [place] al [facility] Lab (Internal) : [address] [place] 04/05/2018 CMP, Serum or S High g/r 110 74-106 Final [place] Plasma mg/dL mg/dL [facility] Lab (Internal) : [address] [place] ? ? S High Bun 20 mg/dL 7-17 Final [place] mg/dL [facility] Lab (Internal) : [address] [place] ? ? S High Crea 1.20 0.52-1. Final [place] mg/dL 04 [place] mg/dL Hospital Lab (Internal) : [address] [place] ? ? S - Ca 9.1 8.4-10. Final [place] mg/dL 2 mg/dL [facility] Lab (Internal) : [address] [place] ? ? S - Na 140 137-145 Final [place] mmol/L mmol/L [facility] Lab (Internal) : [address] [place] ? ? S - K 4.4 3.5-5.1 Final [place] mmol/L mmol/L [facility] Lab (Internal) : [address] ? ? S - Cl 100 98-107 Final [place] mmol/L mmol/L [facility] Lab (Internal) : [address] ? ? S - Tco2 28.0 22.0-30 Final [place] mmol/L .0 [place] mmol/L Hospital Lab (Internal) : [address] ? ? S - Tp 7.7 g/dL 6.3-8.2 Final [place] g/dL [facility] Lab (Internal) : [address] ? ? S - Alb 3.9 g/dL 3.5-5.0 Final [place] g/dL [facility] Lab (Internal) : [address] [place] ? ? S - Tbil 0.5 0.2-1.3 Final [place] mg/dL mg/dL [facility] Lab (Internal) : [address] [place] ? ? S - Alp 98 U/L 38-126 Final [place] U/L [facility] Lab (Internal) : [address] [place] ? ? S - Alt (Sgpt) <10 U/L 9-52 Final Nort h U/L [facility] Lab (Internal) : [address] [place] ? ? S - Ast (Sgot) 23 U/L 14-36 Final [place] U/L [facility] Lab (Internal) : [address] [place] 04/05/2018 Iron, Serum SERUM - Iron 42 ug/dL 37-170 Final [place] ug/dL [facility] Lab (Internal) : [address] [place] 04/05/2018 T4, Free, S - Ft4 1.63 0.78-2. Final No rth Serum NG/dL 19 [facility] NG/dL Hospital Lab (Internal) : [address] [place] 04/05/2018 Vitamin B12, S High Vit B12 >1000.0 239.0-9 Fin al [place] Serum pg/mL 31.0 [place] pg/mL Hospital Lab (Internal) : [address] [place] 04/05/2018 TSH, Serum or S - Tsh 1.18 0.47-4. Final [place] Plasma u[IU]/mL 68 [facility] u[IU]/m Hospital L Lab (Internal) : [address] 04/05/2018 T4, Total, S - T4 8.3 5.5-11. Final N orth Serum ug/dL 0 ug/dL [facility] Lab (Internal) : [address] 04/05/2018 Ferritin, S - Ferr 78 NG/mL 11-264 Final N orth Serum or NG/mL [facility] Plasma Hospital Lab (Internal) : [address] 04/05/2018 Folate, Serum S - Folate >17.00 2.76-20 Purnima l [place] NG/mL .00 [place] NG/mL Hospital Lab (Internal) : [address] 01/23/2018 Pathology TISS - Report results ? Final N orth Study below [facility] Lab (Internal) : [address] 11/01/2017 CBC W/ Auto BLD - Wbc 9.2 5.0-10. Final [place] Diff 10*3/uL 0 [facility] 10*3/uL Hospital Lab (Internal) : [address] ? ? BLD Low Rbc 3.81 4.10-5. Final [place] 10*6/uL 30 [facility] 10*6/uL Hospital Lab (Internal) : [address] ? ? BLD Low Hgb 10.0 12.0-16 Final [place] g/dL .0 g/dL [facility] Lab (Internal) : [address] ? ? BLD Low Hct 32.2 % 37.0-47 Final [place] .0 % [facility] Lab (Internal) : [address] ? ? BLD - Mcv 84.5 fL 80.0-96 Final [place] .0 fL [facility] Lab (Internal) : [address] ? ? BLD - Mch 26.2 pg 26.0-32 Final [place] .0 pg [facility] Lab (Internal) : [address] ? ? BLD - Mchc 31.1 31.0-35 Final [place] g/dL .0 g/dL [facility] Lab (Internal) : [address] [place] ? ? BLD High Rdw 17.7 % 11.5-14 Final [place] .5 % [facility] Lab (Internal) : [address] [place] ? ? BLD - Plt 214 130-450 Final [place] 10*3/uL 10*3/uL [facility] Lab (Internal) : [address] [place] ? ? BLD - Anc 6.43 ? Final [place] 10*3/uL [facility] Lab (Internal) : [address] [place] ? ? BLD - Neutro 69.7 % 40.0-75 Final [place] .0 % [facility] Lab (Internal) : [address] ? ? BLD - Lymph 20.2 % 20.0-50 Final [place] .0 % [facility] Lab (Internal) : [address] ? ? BLD - [facility] 6.2 % 2.0-10. Final [place] 0 % [facility] Lab (Internal) : [address] ? ? BLD - Eos 3.1 % 1.0-6.0 Final [place] % [facility] Lab (Internal) : [address] ? ? BLD - Baso 0.4 % 0.0-1.0 Final [place] % [facility] Lab (Internal) : [address] ? ? BLD - Ig 0.4 % 0.0-0.9 Final [place] % [facility] Lab (Internal) : [address] [place] 11/01/2017 BMP, Serum or S - g/r 93 mg/dL 74-106 Purnima l [place] Plasma mg/dL [facility] Lab (Internal) : [address] [place] ? ? S - Bun 15 mg/dL 7-17 Final [place] mg/dL [facility] (Internal) : [address] [place] ? ? S - Crea 1.00 0.52-1. Final [place] mg/dL 04 [place] mg/dL Hospital Lab (Internal) : [address] [place] ? ? S - Ca 9.1 8.4-10. Final [place] mg/dL 2 mg/dL [facility] Lab (Internal) : [address] [place] ? ? S - Na 141 137-145 Final [place] mmol/L mmol/L [facility] Lab (Internal) : [address] [place] ? ? S - K 3.6 3.5-5.1 Final [place] mmol/L mmol/L [facility] (Internal) : [address] [place] ? ? S - Cl 100 98-107 Final [place] mmol/L mmol/L [facility] Lab (Internal) : [address] ? ? S - Tco2 30.0 22.0-30 Final [place] mmol/L .0 [place] mmol/L Hospital Lab (Internal) : [address] 11/01/2017 RBC BLD - Aniso small ? Final [place] Morphology, Count ry Blood Hospital Lab (Internal) : [address] 11/01/2017 HbA1C BLD High Ha1C 6.3 % 4.0-6.0 Final [place] (Hemoglobin % Count ry a1C), Blood Hospi refugio Lab (Internal) : [address] 08/28/2017 CBC W/ Auto BLD High Wbc 11.1 5.0-10. Final [place] Diff 10*3/uL 0 [facility] 10*3/uL Hospital Lab (Internal) : [address] ? ? BLD Low Rbc 3.73 4.10-5. Final [place] 10*6/uL 30 [facility] 10*6/uL Hospital Lab (Internal) : [address] ? ? BLD Low Hgb 9.8 g/dL 12.0-16 Final [place] .0 g/dL [facility] Lab (Internal) : [address] ? ? BLD Low Hct 32.6 % 37.0-47 Final [place] .0 % [facility] Lab (Internal) : [address] ? ? BLD - Mcv 87.4 fL 80.0-96 Final [place] .0 fL [facility] Lab (Internal) : [address] ? ? BLD - Mch 26.3 pg 26.0-32 Final [place] .0 pg [facility] Lab (Internal) : [address] ? ? BLD Low Mchc 30.1 31.0-35 Final [place] g/dL .0 g/dL [facility] Lab (Internal) : [address] ? ? BLD High Rdw 17.4 % 11.5-14 Final [place] .5 % [facility] Lab (Internal) : [address] ? ? BLD - Plt 206 130-450 Final [place] 10*3/uL 10*3/uL [facility] Hospital Lab (Internal) : [address] 08/28/2017 Iron, Serum SERUM - Iron 41 ug/dL 37-170 Final [place] ug/dL [facility] Hospital Lab (Internal) : [address] 08/28/2017 Ferritin, S - Ferr 76 NG/mL 11-264 Final N orth Serum or NG/mL [facility] Plasma Hospital Lab (Internal) : [address] 08/28/2017 Folate, Serum S - Folate >17.00 2.76-20 Purnima l [place] NG/mL .00 [place] NG/mL Hospital Lab (Internal) : [address] 08/28/2017 Vitamin B12, S High Vit B12 >1000.0 239.0-9 Fin al [place] Serum pg/mL 31.0 [place] pg/mL Hospital Lab (Internal) : [address] 08/28/2017 Differential, BLD High Polys 83 % 40-75 % Final [facility] Blood Cou ntr Hospital Lab (Internal) : [address] [place] ? ? BLD - Bands 2 % 0-5 % Final [facility] Hospital Lab (Internal) : [address] [place] ? ? BLD Low Lymphs 11 % 20-50 % Final Lab (Internal) : [address] [place] ? ? BLD - [facility] 2 % 2-10 % Final Lab (Internal) : [address] [place] ? ? BLD - Eos 1 % 0-6 % Final Lab (Internal) : [address] [place] ? ? BLD - Baso 1 % 0-1 % Final Lab (Internal) : [address] [place] ? ? BLD - Atyp Lymph 0 % ? Final Lab (Internal) : [address] [place] ? ? BLD - Plts, Est. adequate adequat Final No rth e [facility] Hospital Lab (Internal) : [address] [place] ? ? BLD ABNORMAL RBC abnormal normal Final [facility] Lab (Internal) : [address] ? ? BLD - [place]iso small ? Final Lab (Internal) : [address] [place] ? ? BLD - Hypo occasion ? Final [facility] Lab (Internal) : [address] [place] ? ? BLD - Oval occasion ? Final [facility] Lab (Internal) : [address] 08/28/2017 Neutrophil BLD - Anc-manual 9.40 ? Purnima [place] Count, 10*3/uL [facility] ([facility]), Blood Lab (Internal) : [address] 07/12/2017 Venipuncture BLD ? Venpn* ? ? Final Lab (Internal) : [address] 07/12/2017 Urinalysis, UR ? UA-color yellow pale Final [place] Dipstick, yellow [facility] Reflex Micro Hosp ital Lab (Internal) : [address] ? ? UR ? UA-appear clear clear Final Lab (Internal) : [address] ? ? UR ? UA-spec Grav 1.010 1.003-1 Final No rth .035 [facility] Lab (Internal) : [address] ? ? UR ? UA-pH 6.0 [pH] 4.6-8.0 Final [place] [pH] [facility] Lab (Internal) : [address] ? ? UR ? UA-leuk Est negative negativ Final [place] [facility] (Internal) : [address] ? ? UR ? UA-nitrite negative negativ Final No [facility] Lab (Internal) : [address] ? ? UR ? UA-prot negative negativ Final [facility] Lab (Internal) : [address] ? ? UR ? UA-gluc negative negativ Final [facility] Lab (Internal) : [address] ? ? UR ? UA-ketone negative negativ Final [facility] Lab (Internal) : [address] ? ? UR ? UA-urobil normal normal Final Lab (Internal) : [address] ? ? UR ? UA-bili negative negativ Final [facility] Lab (Internal) : [address] ? ? UR ? UA-blood negative negativ Final [facility] Lab (Internal) : [address] 07/12/2017 Neutrophil BLD ? Anc-manual 8.59 ? Purnima [place] Count, 10*3/uL [facility] ([facility]), Blood Lab (Internal) : [address] 07/12/2017 Differential, BLD High Polys 85 % 40-75 % Final [facility] Blood Cou [facility] Lab (Internal) : [address] ? ? BLD ? Bands 3 % 0-5 % Final Lab (Internal) : [address] ? ? BLD Low Lymphs 6 % 20-50 % Final Lab (Internal) : [address] ? ? BLD ? [facility] 6 % 2-10 % Final Lab (Internal) : [address] ? ? BLD ? Eos 0 % 0-6 % Final Lab (Internal) : [address] ? ? BLD ? Baso 0 % 0-1 % Final Lab (Internal) : [address] ? ? BLD ? Atyp Lymph 0 % ? Final Lab (Internal) : [address] ? ? BLD ? Plts, Est. adequate adequat Final No rth e [facility] Lab (Internal) : [address] ? ? BLD ABNORMAL RBC abnormal normal Final [facility] Lab (Internal) : [address] ? ? BLD ? Aniso occasion ? Final [facility] Lab (Internal) : [address] 07/12/2017 BMP, Serum or S High g/r 172 74-106 Final [place] Plasma mg/dL mg/dL [facility] Lab (Internal) : [address] ? ? S High Bun 23 mg/dL 7-17 Final [place] mg/dL [facility] Lab (Internal) : [address] ? ? S ? Crea 0.90 0.52-1. Final [place] mg/dL 04 [place] mg/dL Hospital Lab (Internal) : [address] ? ? S ? Ca 9.5 8.4-10. Final [place] mg/dL 2 mg/dL [facility] Lab (Internal) : [address] ? ? S ? Na 139 137-145 Final [place] mmol/L mmol/L [facility] Lab (Internal) : [address] ? ? S ? K 4.4 3.5-5.1 Final [place] mmol/L mmol/L [facility] ([facility] : [address] ? ? S Low Cl 97 98-107 Final [place] mmol/L mmol/L [facility] Hospital Lab (Internal) : [address] ? ? S High Tco2 33.0 22.0-30 Final [place] mmol/L .0 [facility] mmol/L Hospital Lab (Internal) : [address] 07/12/2017 CBC W/ Auto BLD ? Wbc 9.8 5.0-10. Final [place] Diff 10*3/uL 0 [place] 10*3/uL Hospital Lab (Internal) : [address] ? ? BLD Low Rbc 3.66 4.10-5. Final [place] 10*6/uL 30 [facility] 10*6/uL Hospital Lab (Internal) : [address] ? ? BLD Low Hgb 10.0 12.0-16 Final [place] g/dL .0 g/dL [facility] Lab (Internal) : [address] ? ? BLD Low Hct 31.8 % 37.0-47 Final [place] .0 % [facility] ([facility] : [address] ? ? BLD ? Mcv 86.9 fL 80.0-96 Final [place] .0 fL [facility] Lab (Internal) : [address] ? ? BLD ? Mch 27.3 pg 26.0-32 Final [place] .0 pg [facility] ([facility]) : [address] ? ? BLD ? Mchc 31.4 31.0-35 Final [place] g/dL .0 g/dL [facility] Hospital Lab (Internal) : [address] ? ? BLD High Rdw 16.8 % 11.5-14 Final [place] .5 % [facility] Lab (Internal) : [address] ? ? BLD ? Plt 169 130-450 Final [place] 10*3/uL 10*3/uL [facility] Hospital Lab (Internal) : [address] 07/10/2017 Venipuncture BLD ? Venpn* ? ? Final [facility] Hospital Lab (Internal) : [address] 07/10/2017 RBC BLD ? Aniso small ? Final [place] Morphology, Count ry Blood Hospital Lab (Internal) : [address] ? ? BLD ? Hypo occasion ? Final [facility] : [address] 07/10/2017 Troponin I, S ? Trop <0.06 0.00-0. Final [place] Serum or NG/mL 06 [place] Plasma NG/mL Hospital Lab (Internal) : [address] 07/10/2017 Magnesium, QN, S ? mg 2.3 1.6-2.3 Purnima l [place] Serum or mg/dL mg/dL [facility] Plasma Hospital Lab (Internal) : [address] 07/10/2017 Prothrombin BLD ? Pt 10.9 S 9.1-11. Final [place] Time 7 S [facility] Hospital Lab (Internal) : [address] ? ? BLD ? Inr 1.1 ? Final [facility] Hospital Lab (Internal) : [address] 07/10/2017 CK (Creatine S ? Cpk 48 U/L 30-135 Final [place] Kinase), U/L [facility] Total, Serum Hosp ital Lab (Internal) : [address] 07/10/2017 CRP, High S High Rcrp 1.22 0.10-0. Final No rth Sensitivity, mg/dL 30 Coun try Serum or mg/dL Hospital Plasma Lab (Internal) : [address] 07/10/2017 CMP, Serum or S High g/r 121 74-106 Final [place] Plasma mg/dL mg/dL [facility] Hospital Lab (Internal) : [address] ? ? S High Bun 24 mg/dL 7-17 Final [place] mg/dL [facility] Hospital Lab (Internal) : [address] ? ? S ? Crea 1.00 0.52-1. Final [place] mg/dL 04 [facility] mg/dL Hospital Lab (Internal) : [address] ? ? S ? Ca 9.1 8.4-10. Final [place] mg/dL 2 mg/dL [facility] Hospital Lab (Internal) : [address] ? ? S ? Na 143 137-145 Final [place] mmol/L mmol/L [facility] Hospital Lab (Internal) : [address] ? ? S ? K 3.9 3.5-5.1 Final [place] mmol/L mmol/L [facility] Lab (Internal) : [address] ? ? S ? Cl 101 98-107 Final [place] mmol/L mmol/L [facility] Lab (Internal) : [address] ? ? S High Tco2 34.0 22.0-30 Final [place] mmol/L .0 [facility] mmol/L Hospital Lab (Internal) : [address] ? ? S ? Tp 6.9 g/dL 6.3-8.2 Final [place] g/dL [facility] Hospital Lab (Internal) : [address] ? ? S ? Alb 3.8 g/dL 3.5-5.0 Final [place] g/dL [facility] Lab (Internal) : [address] ? ? S ? Tbil 0.2 0.2-1.3 Final [place] mg/dL mg/dL [facility] Hospital Lab (Internal) : [address] ? ? S ? Alp 69 U/L 38-126 Final [place] U/L [facility] Hospital Lab (Internal) : [address] ? ? S ? Alt (Sgpt) 30 U/L 9-52 Final [place] U/L [facility] Lab (Internal) : [address] ? ? S ? Ast (Sgot) 35 U/L 14-36 Final [place] U/L [facility] Lab (Internal) : [address] 07/10/2017 CBC W/ Auto BLD ? Wbc 9.6 5.0-10. Final [place] Diff 10*3/uL 0 [facility] 10*3/uL Hospital Lab (Internal) : [address] ? ? BLD Low Rbc 3.61 4.10-5. Final [place] 10*6/uL 30 [facility] 10*6/uL Hospital Lab (Internal) : [address] ? ? BLD Low Hgb 9.6 g/dL 12.0-16 Final [place] .0 g/dL [facility] Lab (Internal) : [address] ? ? BLD Low Hct 31.5 % 37.0-47 Final [place] .0 % [facility] (Internal) : [address] [place] ? ? BLD ? Mcv 87.3 fL 80.0-96 Final [place] .0 fL [facility] ([facility] : [address] [place] ? ? BLD ? Mch 26.6 pg 26.0-32 Final [place] .0 pg [facility] (Internal) : [address] [place] ? ? BLD Low Mchc 30.5 31.0-35 Final [place] g/dL .0 g/dL [facility] (Internal) : [address] [place] ? ? BLD High Rdw 16.8 % 11.5-14 Final [place] .5 % [facility] (Internal) : [address] [place] ? ? BLD ? Plt 175 130-450 Final [place] 10*3/uL 10*3/uL [facility] Hospital Lab (Internal) : [address] [place] ? ? BLD ? Anc 7.32 ? Final [place] 10*3/uL [facility] Lab (Internal) : [address] [place] ? ? BLD High Neutro 76.0 % 40.0-75 Final [place] .0 % [facility] (Internal) : [address] [place] ? ? BLD Low Lymph 15.5 % 20.0-50 Final [place] .0 % [facility] Lab (Internal) : [address] [place] ? ? BLD ? [facility] 6.4 % 2.0-10. Final [place] 0 % [facility] Lab (Internal) : [address] [place] ? ? BLD ? Eos 1.0 % 1.0-6.0 Final [place] % [facility] Lab (Internal) : [address] [place] ? ? BLD ? Baso 0.3 % 0.0-1.0 Final [place] % [facility] Lab (Internal) : [address] [place] ? ? BLD ? Ig 0.8 % 0.0-0.9 Final [place] % [facility] Lab (Internal) : [address] [place] 06/07/2017 T3, Total, S Low T3, Total 74 NG/dL 97-169 Fin al [place] Serum NG/dL [facility] Hospital Lab (Internal) : [address] [place] 06/07/2017 T4, Free, S ? Ft4 0.92 0.78-2. Final No rth Serum NG/dL 19 [place] NG/dL Hospital Lab (Internal) : [address] 06/07/2017 RBC BLD ? Aniso moderate ? Final Nort h Morphology, Count ry Blood Hospital Lab (Internal) : [address] ? ? BLD ? Hypo occasion ? Final [place] al [facility] Lab (Internal) : [address] 06/07/2017 TSH, Serum or S High Tsh 5.22 0.47-4. Final [place] Plasma u[IU]/mL 68 [place] u[IU]/m Hospital L Lab (Internal) : [address] 06/07/2017 CBC W/ Auto BLD High Wbc 14.0 5.0-10. Final [place] Diff 10*3/uL 0 [facility] 10*3/uL Hospital Lab (Internal) : [address] ? ? BLD Low Rbc 4.01 4.10-5. Final [place] 10*6/uL 30 [facility] 10*6/uL Hospital Lab (Internal) : [address] ? ? BLD Low Hgb 10.8 12.0-16 Final [place] g/dL .0 g/dL [facility] Hospital Lab (Internal) : [address] ? ? BLD Low Hct 34.6 % 37.0-47 Final [place] .0 % [facility] Lab (Internal) : [address] ? ? BLD ? Mcv 86.3 fL 80.0-96 Final [place] .0 fL [facility] Lab (Internal) : [address] ? ? BLD ? Mch 26.9 pg 26.0-32 Final [place] .0 pg [facility] Lab (Internal) : [address] ? ? BLD ? Mchc 31.2 31.0-35 Final [place] g/dL .0 g/dL [facility] Hospital Lab (Internal) : [address] ? ? BLD High Rdw 17.2 % 11.5-14 Final [place] .5 % [facility] Lab (Internal) : [address] ? ? BLD ? Plt 233 130-450 Final [place] 10*3/uL 10*3/uL [facility] Hospital Lab (Internal) : [address] ? ? BLD ? Anc 10.30 ? Final [place] 10*3/uL [facility] ([facility] : [address] ? ? BLD ? Neutro 73.6 % 40.0-75 Final [place] .0 % [facility] (Internal) : [address] ? ? BLD Low Lymph 16.5 % 20.0-50 Final [place] .0 % [facility] (Internal) : [address] ? ? BLD ? [facility] 7.1 % 2.0-10. Final [place] 0 % [facility] (Internal) : [address] ? ? BLD Low Eos 0.9 % 1.0-6.0 Final [place] % [facility] Lab (Internal) : [address] ? ? BLD ? Baso 0.4 % 0.0-1.0 Final [place] % [facility] Lab (Internal) : [address] ? ? BLD High Ig 1.5 % 0.0-0.9 Final [place] % [facility] Lab (Internal) : [address] 06/07/2017 ESR BLD High Esr 49 mm/h 0-30 Final [place] (Erythrocyte mm/h Coun try Sedimentation Hos pital Rate), Blood Lab (Internal) : [address] 06/07/2017 Lipid Panel, S ? Chol 154 50-200 Final [place] Serum mg/dL mg/dL [facility] Hospital Lab (Internal) : [address] [place] ? ? S ? Trig 137 10-150 Final [place] mg/dL mg/dL [facility] ([facility] : [address] [place] ? ? S ? Hdl 47 mg/dL 40-60 Final [place] mg/dL [facility] (Internal[facility] : [address] [place] ? ? S ? Ldl 80 mg/dL 0-130 Final [place] mg/dL [facility] Lab (Internal) : [address] 06/01/2017 Drug Screen, UR ? Thc negative neg (50 Purnima l [place] Urine NG/mL NG/mL) [facility] NG/mL Hospital Lab (Internal) : [address] [place] ? ? UR ? Pcp negative neg (25 Final [place] NG/mL) [facility] (Internal) : [address], [place] ? ? UR ? Beti negative neg Final [place] (150 [place] NG/mL) Hospital Lab (Internal) : [address], [place] ? ? UR ? Met negative neg Final [place] (500 [place] NG/mL) Hospital Lab (Internal) : [address], [place] ? ? UR ? Opi negative neg Final [place] (100 [place] NG/mL) Hospital Lab (Internal) : [address], [place] ? ? UR ? Amp negative neg Final [place] (500 [place] NG/mL) Hospital Lab (Internal) : [address], [place] ? ? UR ? Bzo negative neg Final [place] (150 [place] NG/mL) Hospital Lab (Internal) : [address], [place] ? ? UR ? Tca negative neg Final [place] (300 [place] NG/mL) Hospital Lab (Internal) : [address], [place] ? ? UR ? Mtd negative neg Final [place] (200 [place] NG/mL) Hospital Lab (Internal) : [address], [place] ? ? UR ? Bar negative neg Final [place] (200 [place] NG/mL) Hospital Lab (Internal) : [address], [place] ? ? UR ? Oxy negative neg Final [place] (100 [place] NG/mL) Hospital Lab (Internal) : [address], [place] ? ? UR ? Ppx negative neg Final [place] (300 [place] NG/mL) Hospital Lab (Internal) : [address], [place] ? ? UR ? Bup negative neg (10 Final [place] NG/mL) [facility] Lab (Internal) : [address] [place] 06/01/2017 Urinalysis, UR ? UA-color straw pale Final [place] Dipstick, yellow [place] Reflex Micro Hosp ital Lab (Internal) : [address], [place] ? ? UR ? UA-appear clear clear Final [facility] Hospital Lab (Internal) : [address], [place] ? ? UR ? UA-spec Grav 1.010 1.003-1 Final No rth .035 [facility] Lab (Internal) : [address], [place] ? ? UR ? UA-pH 7.0 [pH] 4.6-8.0 Final [place] [pH] [facility] Lab (Internal) : [address], [place] ? ? UR ? UA-leuk Est negative negativ Final N orth e [facility] Lab (Internal) : [address], [place] ? ? UR ? UA-nitrite negative negativ Final No [facility] Lab (Internal) : [address] ? ? UR ? UA-prot negative negativ Final [facility] (Internal) : [address] ? ? UR ? UA-gluc negative negativ Final [facility] (Internal) : [address] ? ? UR ? UA-ketone negative negativ Final [facility] (Internal) : [address] ? ? UR ? UA-urobil normal normal Final Lab (Internal) : [address] ? ? UR ? UA-bili negative negativ Final [facility] Lab (Internal) : [address] ? ? UR ? UA-blood negative negativ Final [facility] Lab (Internal) : [address] 04/11/2017 Venipuncture BLD ? Venpn* ? ? Final Lab (Internal) : [address] 04/11/2017 RBC BLD ? Aniso moderate ? Final [facility] Morphology, Count [facility] Lab (Internal) : [address] ? ? BLD ? Hypo occasion ? Final [facility] Lab (Internal) : [address] 04/11/2017 CMP, Serum or S ? g/r 79 mg/dL 74-106 Purnima l [place] Plasma mg/dL [facility] Lab (Internal) : [address] ? ? S High Bun 23 mg/dL 7-17 Final [place] mg/dL [facility] Lab (Internal) : [address] ? ? S ? Crea 1.00 0.52-1. Final [place] mg/dL 04 [place] mg/dL Hospital Lab (Internal) : [address] ? ? S ? Ca 9.3 8.4-10. Final [place] mg/dL 2 mg/dL [facility] Lab (Internal) : [address] ? ? S ? Na 138 137-145 Final [place] mmol/L mmol/L [facility] Lab (Internal) : [address] ? ? S ? K 4.1 3.5-5.1 Final [place] mmol/L mmol/L [facility] Lab (Internal) : [address] ? ? S Low Cl 97 98-107 Final [place] mmol/L mmol/L [facility] Lab (Internal) : [address] ? ? S High Tco2 32.0 22.0-30 Final [place] mmol/L .0 [facility] mmol/L Hospital Lab (Internal) : [address] ? ? S ? Tp 7.6 g/dL 6.3-8.2 Final [place] g/dL [facility] Lab (Internal) : [address] ? ? S ? Alb 4.1 g/dL 3.5-5.0 Final [place] g/dL [facility] Lab (Internal) : [address] ? ? S ? Tbil 0.3 0.2-1.3 Final [place] mg/dL mg/dL [facility] Hospital Lab (Internal) : [address] ? ? S ? Alp 70 U/L 38-126 Final [place] U/L [facility] Lab (Internal) : [address] ? ? S ? Alt (Sgpt) 31 U/L 9-52 Final [place] U/L [facility] Lab (Internal) : [address] ? ? S ? Ast (Sgot) 29 U/L 14-36 Final [place] U/L [facility] Lab (Internal) : [address] 04/11/2017 CBC W/ Auto BLD ? Wbc 9.0 5.0-10. Final [place] Diff 10*3/uL 0 [place] 10*3/uL Hospital Lab (Internal) : [address] ? ? BLD Low Rbc 3.76 4.10-5. Final [place] 10*6/uL 30 [facility] 10*6/uL Hospital Lab (Internal) : [address] ? ? BLD Low Hgb 10.0 12.0-16 Final [place] g/dL .0 g/dL [facility] Lab (Internal) : [address] ? ? BLD Low Hct 32.4 % 37.0-47 Final [place] .0 % [facility] Hospital Lab (Internal) : [address] ? ? BLD ? Mcv 86.2 fL 80.0-96 Final [place] .0 fL [facility] (Internal) : [address] ? ? BLD ? Mch 26.6 pg 26.0-32 Final [place] .0 pg [facility] Lab (Internal) : [address] ? ? BLD Low Mchc 30.9 31.0-35 Final [place] g/dL .0 g/dL [facility] Lab (Internal) : [address] ? ? BLD High Rdw 18.0 % 11.5-14 Final [place] .5 % [facility] (Internal) : [address] ? ? BLD ? Plt 161 130-450 Final [place] 10*3/uL 10*3/uL [facility] (Internal) : [address] ? ? BLD ? Anc 6.26 ? Final [place] 10*3/uL [facility] Lab (Internal) : [address] ? ? BLD ? Neutro 69.6 % 40.0-75 Final [place] .0 % [facility] (Internal) : [address] ? ? BLD ? Lymph 20.5 % 20.0-50 Final [place] .0 % [facility] (Internal) : [address] ? ? BLD ? [facility] 6.3 % 2.0-10. Final [place] 0 % [facility] (Internal) : [address] ? ? BLD ? Eos 2.9 % 1.0-6.0 Final [place] % [facility] Lab (Internal) : [address] ? ? BLD ? Baso 0.4 % 0.0-1.0 Final [place] % [facility] Lab (Internal) : [address] ? ? BLD ? Ig 0.3 % 0.0-0.9 Final [place] % [facility] Lab (Internal) : [address] 04/07/2017 Venipuncture BLD ? Venpn* ? ? Final [place] [facility] Lab (Internal) : [address] 04/07/2017 T3, Total, S Low T3, Total 76 NG/dL 97-169 Fin al [place] Serum NG/dL [facility] Hospital Lab (Internal) : [address] 04/07/2017 T4, Free, S ? Ft4 1.25 0.78-2. Final No rth Serum NG/dL 19 [place] NG/dL Hospital Lab (Internal) : [address] 04/07/2017 RBC BLD ? Aniso small ? Final [place] Morphology, Count ry Blood Hospital Lab (Internal) : [address] ? ? BLD ? Hypo occasion ? Final [place] al [facility] Lab (Internal) : [address] 04/07/2017 CBC W/ Auto BLD High Wbc 11.3 5.0-10. Final [place] Diff 10*3/uL 0 [place] 10*3/uL Hospital Lab (Internal) : [address] ? ? BLD Low Rbc 4.09 4.10-5. Final [place] 10*6/uL 30 [facility] 10*6/uL Hospital Lab (Internal) : [address] ? ? BLD Low Hgb 10.9 12.0-16 Final [place] g/dL .0 g/dL [facility] Lab (Internal) : [address] ? ? BLD Low Hct 34.9 % 37.0-47 Final [place] .0 % [facility] Lab (Internal) : [address] [place] ? ? BLD ? Mcv 85.3 fL 80.0-96 Final [place] .0 fL [facility] Hospital Lab (Internal) : [address] [place] ? ? BLD ? Mch 26.7 pg 26.0-32 Final [place] .0 pg [facility] Lab (Internal) : [address] ? ? BLD ? Mchc 31.2 31.0-35 Final [place] g/dL .0 g/dL [facility] Lab (Internal) : [address] ? ? BLD High Rdw 18.0 % 11.5-14 Final [place] .5 % [facility] Lab (Internal) : [address] ? ? BLD ? Plt 193 130-450 Final [place] 10*3/uL 10*3/uL [facility] Hospital Lab (Internal) : [address] ? ? BLD ? Anc 8.12 ? Final [place] 10*3/uL [facility] Hospital Lab (Internal) : [address] ? ? BLD ? Neutro 71.8 % 40.0-75 Final [place] .0 % [facility] Lab (Internal) : [address] ? ? BLD Low Lymph 18.6 % 20.0-50 Final [place] .0 % [facility] Lab (Internal) : [address] ? ? BLD ? [facility] 6.1 % 2.0-10. Final [place] 0 % [facility] Lab (Internal) : [address] ? ? BLD ? Eos 2.4 % 1.0-6.0 Final [facility] Hospital Lab (Internal) : [address] ? ? BLD ? Baso 0.5 % 0.0-1.0 Final [facility] Lab (Internal) : [address] ? ? BLD ? Ig 0.6 % 0.0-0.9 Final [facility] Lab (Internal) : [address] 04/07/2017 ESR BLD High Esr 63 mm/h 0-30 Final [place] (Erythrocyte mm/h Coun try Sedimentation Hos pital Rate), Blood Lab (Internal) : [address] 04/07/2017 TSH, Serum or S ? Tsh 2.08 0.47-4. Final [place] Plasma u[IU]/mL [place] u[IU]/m Hospital L Lab (Internal) : [address] 03/10/2017 ESR BLD High Esr 55 mm/h 0-30 Final [place] (Erythrocyte mm/h Coun try Sedimentation Hos pital Rate), Blood Lab (Internal) : [address] 01/09/2017 RBC BLD ? Aniso small ? Final [place] Morphology, Count Blood Hospital Lab (Internal) : [address] ? ? BLD ? Hypo small ? Final [facility] Hospital Lab (Internal) : [address] ? ? BLD ? Micro small ? Final [facility] Hospital Lab (Internal) : [address] 01/09/2017 ESR BLD High Esr 55 mm/h 0-30 Final [place] (Erythrocyte mm/h Coun try Sedimentation Hos pital Rate), Blood Lab (Internal) : [address] 01/09/2017 CBC W/ Auto BLD ? Wbc 8.4 5.0-10. Final [place] Diff 10*3/uL 0 [facility] 10*3/uL Hospital Lab (Internal) : [address], [place] ? ? BLD ? Rbc 4.13 4.10-5. Final [place] 10*6/uL 30 [facility] 10*6/uL Hospital Lab (Internal) : [address], [place] ? ? BLD Low Hgb 10.8 12.0-16 Final [place] g/dL .0 g/dL [facility] Lab (Internal) : [address], [place] ? ? BLD Low Hct 34.4 % 37.0-47 Final [place] .0 % [facility] (Internal) : [address], [place] ? ? BLD ? Mcv 83.3 fL 80.0-96 Final [place] .0 fL [facility] (Internal) : [address], [place] ? ? BLD ? Mch 26.2 pg 26.0-32 Final [place] .0 pg [facility] Lab (Internal) : [address], [place] ? ? BLD ? Mchc 31.4 31.0-35 Final [place] g/dL .0 g/dL [facility] (Internal) : [address], [place] ? ? BLD High Rdw 17.0 % 11.5-14 Final [place] .5 % [facility] (Internal) : [address], [place] ? ? BLD ? Plt 178 130-450 Final [place] 10*3/uL 10*3/uL [facility] Hospital Lab (Internal) : [address], [place] ? ? BLD ? Anc 6.67 ? Final [place] 10*3/uL [facility] (Internal) : [address], [place] ? ? BLD High Neutro 79.3 % 40.0-75 Final [place] .0 % [facility] (Internal) : [address], [place] ? ? BLD Low Lymph 11.5 % 20.0-50 Final [place] .0 % [facility] (Internal) : [address], [place] ? ? BLD ? [facility] 6.7 % 2.0-10. Final [place] 0 % [facility] (Internal) : [address], [place] ? ? BLD ? Eos 1.5 % 1.0-6.0 Final [place] % [facility] (Internal) : [address], [place] ? ? BLD ? Baso 0.4 % 0.0-1.0 Final [facility] Lab (Internal) : [address] ? ? BLD ? Ig 0.6 % 0.0-0.9 Final [facility] Lab (Internal) : [address] 01/09/2017 TSH, Serum or S Low Tsh 0.44 0.47-4. Final [place] Plasma u[IU]/mL [address] [place] [address] u[IU]/m Hospital L Lab (Internal) : [address] [place] 12/30/2016 Pathology TISS ? Report results ? Final N orth Study below [facility] Hospital Lab (Internal) : [address] [place] 09/19/2016 T3, Free, S ? T3, Free 3.0 2.8-5.3 Final [place] Serum or pg/mL pg/mL [facility] Lab (Internal) : [address] [place] 09/19/2016 HbA1C BLD High Ha1C 8.4 % 4.0-6.0 Final [place] (Hemoglobin % Count ry a1C), Blood Hospi refugio Lab (Internal) : [address] [place] 09/19/2016 T4, Free, S ? Ft4 1.63 0.78-2. Final No rth Serum NG/dL 19 [place] NG/dL Hospital Lab (Internal) : [address] [place] 09/19/2016 Neutrophil BLD ? Anc-manual 8.13 ? Purnima l [place] Count, 10*3/uL [facility] (Anc), Blood Lab (Internal) : [address] [place] 09/19/2016 Differential, BLD High Polys 83 % 40-75 % Final [facility], Blood Cou ntry Hospital Lab (Internal) : [address] ? ? BLD ? Bands 1 % 0-5 % Final Lab (Internal) : [address] ? ? BLD Low Lymphs 11 % 20-50 % Final Lab (Internal) : [address] ? ? BLD ? [facility] 4 % 2-10 % Final [facility] Hospital Lab (Internal) : [address] ? ? BLD ? Eos 0 % 0-6 % Final Lab (Internal) : [address] ? ? BLD ? Baso 1 % 0-1 % Final Lab (Internal) : [address] ? ? BLD ? Atyp Lymph 0 % ? Final Lab (Internal) : [address] ? ? BLD ? Plts, Est. adequate adequat Final No rth e [facility] Hospital Lab (Internal) : [address] ? ? BLD ABNORMAL RBC abnormal normal Final [facility] Hospital Lab (Internal) : [address] ? ? BLD ? Aniso moderate ? Final [facility] Hospital Lab (Internal) : [address] ? ? BLD ? Hypo moderate ? Final Lab (Internal) : [address] ? ? BLD ? Micro small ? Final Lab (Internal) : [address] 09/19/2016 CBC W/ Auto BLD ? Wbc 9.7 5.0-10. Final [place] Diff 10*3/uL 0 [facility] 10*3/uL Hospital Lab (Internal) : [address] ? ? BLD ? Rbc 4.31 4.10-5. Final [place] 10*6/uL 30 [facility] 10*6/uL Hospital Lab (Internal) : [address] ? ? BLD Low Hgb 11.0 12.0-16 Final [place] g/dL .0 g/dL [facility] Lab (Internal) : [address] ? ? BLD Low Hct 36.1 % 37.0-47 Final [place] .0 % [facility] Lab (Internal) : [address] ? ? BLD ? Mcv 83.8 fL 80.0-96 Final [place] .0 fL [facility] Lab (Internal) : [address] ? ? BLD Low Mch 25.5 pg 26.0-32 Final [place] .0 pg [facility] Lab (Internal) : [address] ? ? BLD Low Mchc 30.5 31.0-35 Final [place] g/dL .0 g/dL [facility] Lab (Internal) : [address] ? ? BLD High Rdw 18.4 % 11.5-14 Final [place] .5 % [facility] Lab (Internal) : [address] [place] ? ? BLD ? Plt 198 130-450 Final [place] 10*3/uL 10*3/uL [facility] Lab (Internal) : [address] 09/19/2016 ESR BLD High Esr 41 mm/h 0-30 Final [place] (Erythrocyte mm/h Coun try Sedimentation Hos pital Rate), Blood Lab (Internal) : [address] [place] 09/19/2016 TSH, Serum or S Low Tsh 0.39 0.47-4. Final [place] Plasma u[IU]/mL 68 [facility] u[IU]/m Hospital L Lab (Internal) : [address] [place] 07/28/2016 RBC BLD ? [place] small ? Final [place] Morphology, Count ry Blood Hospital Lab (Internal) : [address] ? ? BLD ? Stomat occasion ? Final [place] al [facility] Lab (Internal) : [address], [place] 07/28/2016 Troponin I, S ? Trop <0.06 0.00-0. Final [place] Serum or NG/mL 06 [facility] Plasma NG/mL Hospital Lab (Internal) : [address] [place] 07/28/2016 Magnesium, QN, S ? mg 2.1 1.6-2.3 Purnima l [place] Serum or mg/dL mg/dL [facility] Hospital Lab (Internal) : [address] [place] 07/28/2016 CK (Creatine S ? Cpk 35 U/L 30-135 Final [place] Kinase), U/L [place] Total, Serum Hosp ital Lab (Internal) : [address] [place] 07/28/2016 CMP, Serum or S High g/r 144 74-106 Final [place] Plasma mg/dL mg/dL [facility] Lab (Internal) : [address] ? ? S High Bun 29 mg/dL 7-17 Final [place] mg/dL [facility] Lab (Internal) : [address] ? ? S ? Crea 0.80 0.52-1. Final [place] mg/dL 04 [facility] mg/dL Hospital Lab (Internal) : [address] ? ? S ? Ca 9.3 8.4-10. Final [place] mg/dL 2 mg/dL [facility] Lab (Internal) : [address] ? ? S ? Na 140 137-145 Final [place] mmol/L mmol/L [facility] Lab (Internal) : [address] ? ? S ? K 4.2 3.5-5.1 Final [place] mmol/L mmol/L [facility] Lab (Internal) : [address] ? ? S ? Cl 99 98-107 Final [place] mmol/L mmol/L [facility] Lab (Internal) : [address] ? ? S High Tco2 32.0 22.0-30 Final [place] mmol/L .0 [facility] mmol/L Hospital Lab (Internal) : [address] ? ? S ? Tp 7.3 g/dL 6.3-8.2 Final [place] g/dL [facility] Lab (Internal) : [address] ? ? S ? Alb 3.9 g/dL 3.5-5.0 Final [place] g/dL [facility] Lab (Internal) : [address] ? ? S ? Tbil 0.4 0.2-1.3 Final [place] mg/dL mg/dL [facility] Lab (Internal) : [address] ? ? S ? Alp 96 U/L 38-126 Final [place] U/L [facility] Lab (Internal) : [address] ? ? S ? Alt (Sgpt) 24 U/L 9-52 Final [place] U/L [facility] Lab (Internal) : [address] ? ? S ? Ast (Sgot) 18 U/L 14-36 Final [place] U/L [facility] Lab (Internal) : [address] 07/28/2016 CBC W/ Auto BLD High Wbc 11.8 5.0-10. Final [place] Diff 10*3/uL 0 [facility] 10*3/uL Hospital Lab (Internal) : [address] ? ? BLD ? Rbc 4.35 4.10-5. Final [place] 10*6/uL 30 [facility] 10*6/uL Hospital Lab (Internal) : [address] ? ? BLD Low Hgb 11.4 12.0-16 Final [place] g/dL .0 g/dL [facility] Lab (Internal) : [address], [place] ? ? BLD Low Hct 35.6 % 37.0-47 Final [place] .0 % [facility] Hospital Lab (Internal) : [address] ? ? BLD ? Mcv 81.8 fL 80.0-96 Final [place] .0 fL [facility] Lab (Internal) : [address] ? ? BLD ? Mch 26.2 pg 26.0-32 Final [place] .0 pg [facility] Lab (Internal) : [address] [place] ? ? BLD ? Mchc 32.0 31.0-35 Final [place] g/dL .0 g/dL [facility] Lab (Internal) : [address] [place] ? ? BLD High Rdw 17.2 % 11.5-14 Final [place] .5 % [facility] Lab (Internal) : [address] ? ? BLD ? Plt 208 130-450 Final [place] 10*3/uL 10*3/uL [facility] Lab (Internal) : [address] ? ? BLD ? Anc 8.43 ? Final [place] 10*3/uL [facility] Lab (Internal) : [address] ? ? BLD ? Neutro 71.6 % 40.0-75 Final [place] .0 % [facility] Lab (Internal) : [address] ? ? BLD Low Lymph 19.8 % 20.0-50 Final [place] .0 % [facility] Lab (Internal) : [address] ? ? BLD ? [facility] 6.5 % 2.0-10. Final [place] 0 % [facility] Lab (Internal) : [address] ? ? BLD Low Eos 0.7 % 1.0-6.0 Final [place] % [facility] Lab (Internal) : [address] [place] ? ? BLD ? Baso 0.2 % 0.0-1.0 Final [place] % [facility] Lab (Internal) : [address] [place] ? ? BLD High Ig 1.2 % 0.0-0.9 Final [place] % [facility] Lab (Internal) : [address] 07/25/2016 ESR BLD High Esr 53 mm/h 0-30 Final [place] (Erythrocyte mm/h Coun try Sedimentation Hos pital Rate), Blood Lab (Internal) : [address] 07/07/2016 ESR BLD High Esr 47 mm/h 0-30 Final [place] (Erythrocyte mm/h Coun try Sedimentation Hos pital Rate), Blood Lab (Internal) : [address] 06/24/2016 Venipuncture BLD ? Venpn* ? ? Final [facility] Hospital Lab (Internal) : [address] 06/24/2016 ESR BLD High Esr 60 mm/h 0-30 Final [place] (Erythrocyte mm/h Coun try Sedimentation Hos pital Rate), Blood Lab (Internal) : [address] 06/24/2016 RBC BLD ? [place] small ? Final [place] Morphology, Count ry Blood Hospital Lab (Internal) : [address] 06/24/2016 CMP, Serum or S High g/r 109 74-106 Final [place] Plasma mg/dL mg/dL [facility] Lab (Internal) : [address] ? ? S High Bun 25 mg/dL 7-17 Final [place] mg/dL [facility] Lab (Internal) : [address] ? ? S ? Crea 0.90 0.52-1. Final [place] mg/dL 04 [facility] mg/dL Hospital Lab (Internal) : [address] ? ? S ? Ca 8.8 8.4-10. Final [place] mg/dL 2 mg/dL [facility] Lab (Internal) : [address] ? ? S ? Na 140 137-145 Final [place] mmol/L mmol/L [facility] Lab (Internal) : [address] ? ? S ? K 3.7 3.5-5.1 Final [place] mmol/L mmol/L [facility] Lab (Internal) : [address] ? ? S ? Cl 100 98-107 Final [place] mmol/L mmol/L [facility] Lab (Internal) : [address] ? ? S ? Tco2 28.0 22.0-30 Final [place] mmol/L .0 [facility] mmol/L Hospital Lab (Internal) : [address] ? ? S ? Tp 7.8 g/dL 6.3-8.2 Final [place] g/dL [facility] Lab (Internal) : [address] ? ? S ? Alb 4.0 g/dL 3.5-5.0 Final [place] g/dL [facility] Lab (Internal) : [address] ? ? S ? Tbil 0.5 0.2-1.3 Final [place] mg/dL mg/dL [facility] Lab (Internal) : [address] ? ? S ? Alp 75 U/L 38-126 Final [place] U/L [facility] Lab (Internal) : [address] ? ? S ? Alt (Sgpt) 28 U/L 9-52 Final [place] U/L [facility] Lab (Internal) : [address] ? ? S ? Ast (Sgot) 24 U/L 14-36 Final [place] U/L [facility] Lab (Internal) : [address] 06/24/2016 CBC W/ Auto BLD ? Wbc 7.2 5.0-10. Final [place] Diff 10*3/uL 0 [facility] 10*3/uL Hospital Lab (Internal) : [address] ? ? BLD Low Rbc 3.81 4.10-5. Final [place] 10*6/uL 30 [facility] 10*6/uL Hospital Lab (Internal) : [address] ? ? BLD Low Hgb 10.0 12.0-16 Final [place] g/dL .0 g/dL [facility] Lab (Internal) : [address] ? ? BLD Low Hct 31.7 % 37.0-47 Final [place] .0 % [facility] Lab (Internal) : [address] ? ? BLD ? Mcv 83.2 fL 80.0-96 Final [place] .0 fL [facility] Lab (Internal) : [address] ? ? BLD ? Mch 26.2 pg 26.0-32 Final [place] .0 pg [facility] Lab (Internal) : [address] ? ? BLD ? Mchc 31.5 31.0-35 Final [place] g/dL .0 g/dL [facility] Lab (Internal) : [address] ? ? BLD High Rdw 17.6 % 11.5-14 Final [place] .5 % [facility] Lab (Internal) : [address] ? ? BLD ? Plt 189 130-450 Final [place] 10*3/uL 10*3/uL [facility] Lab (Internal) : [address] ? ? BLD ? Anc 4.70 ? Final [place] 10*3/uL [facility] Lab (Internal) : [address] ? ? BLD ? Neutro 65.1 % 40.0-75 Final [place] .0 % [facility] Lab (Internal) : [address] ? ? BLD ? Lymph 23.0 % 20.0-50 Final [place] .0 % [facility] Lab (Internal) : [address] ? ? BLD ? [facility] 8.0 % 2.0-10. Final [place] 0 % [facility] Lab (Internal) : [address] ? ? BLD ? Eos 2.6 % 1.0-6.0 Final [place] % [facility] Lab (Internal) : [address] ? ? BLD ? Baso 0.6 % 0.0-1.0 Final [place] % [facility] Lab (Internal) : [address] ? ? BLD ? Ig 0.7 % 0.0-0.9 Final [place] % [facility] Lab (Internal) : [address] [place] 05/02/2016 T3, Free, S ? T3, Free 2.3 2.3-4.2 Final [place] Serum or pg/mL pg/mL [facility] Plasma Hospital Lab (Internal) : [address] [place] 05/02/2016 HbA1C BLD High Ha1C 6.8 % 4.0-6.0 Final [place] (Hemoglobin % Count ry a1C), Blood Hospi refugio Lab (Internal) : [address] [place] 05/02/2016 T4, Free, S ? Ft4 1.56 0.78-2. Final No rth Serum NG/dL 19 [place] NG/dL Hospital Lab (Internal) : [address] [place] 05/02/2016 RBC BLD ? [place] small ? Final [place] Morphology, Count ry Blood Hospital Lab (Internal) : [address] 05/02/2016 CBC W/ Auto BLD ? Wbc 9.3 5.0-10. Final [place] Diff 10*3/uL 0 [facility] 10*3/uL Hospital Lab (Internal) : [address], [place] ? ? BLD ? Rbc 4.34 4.10-5. Final [place] 10*6/uL 30 [facility] 10*6/uL Hospital Lab (Internal) : [address], [place] ? ? BLD Low Hgb 11.6 12.0-16 Final [place] g/dL .0 g/dL [facility] Lab (Internal) : [address], [place] ? ? BLD ? Hct 37.1 % 37.0-47 Final [place] .0 % [facility] (Internal) : [address], [place] ? ? BLD ? Mcv 85.5 fL 80.0-96 Final [place] .0 fL [facility] Lab (Internal) : [address], [place] ? ? BLD ? Mch 26.7 pg 26.0-32 Final [place] .0 pg [facility] Lab (Internal) : [address], [place] ? ? BLD ? Mchc 31.3 31.0-35 Final [place] g/dL .0 g/dL [facility] (Internal) : [address], [place] ? ? BLD High Rdw 16.8 % 11.5-14 Final [place] .5 % [facility] (Internal) : [address], [place] ? ? BLD ? Plt 202 130-450 Final [place] 10*3/uL 10*3/uL [facility] Lab (Internal) : [address], [place] ? ? BLD ? Anc 6.32 ? Final [place] 10*3/uL [facility] (Internal) : [address], [place] ? ? BLD ? Neutro 68.2 % 40.0-75 Final [place] .0 % [facility] (Internal) : [address], [place] ? ? BLD Low Lymph 19.9 % 20.0-50 Final [place] .0 % [facility] (Internal) : [address], [place] ? ? BLD ? [facility] 7.7 % 2.0-10. Final [place] 0 % [facility] (Internal) : [address], [place] ? ? BLD ? Eos 3.1 % 1.0-6.0 Final [place] % [facility] Lab (Internal) : [address], [place] ? ? BLD ? Baso 0.8 % 0.0-1.0 Final [facility] Lab (Internal) : [address] ? ? BLD ? Ig 0.3 % 0.0-0.9 Final [facility] Lab (Internal) : [address] 05/02/2016 ESR BLD High Esr 48 mm/h 0-30 Final [place] (Erythrocyte mm/h Coun try Sedimentation Hos pital Rate), Blood Lab (Internal) : [address] 05/02/2016 TSH, Serum or S ? Tsh 1.89 0.47-4. Final [place] Plasma u[IU]/mL 68 [place] u[IU]/m Hospital L Lab (Internal) : [address] 05/02/2016 Lipid Panel, S ? Chol 162 50-200 Final [place] Serum mg/dL mg/dL [facility] Lab (Internal) : [address] ? ? S High Trig 194 10-150 Final [place] mg/dL mg/dL [facility] Lab (Internal) : [address] ? ? S Low Hdl 30 mg/dL 40-60 Final [place] mg/dL [facility] Lab (Internal) : [address] ? ? S ? Ldl 93 mg/dL 0-130 Final [place] mg/dL [facility] Lab (Internal) : [address] ? Venipuncture ? Location Left ? ? P _nc Antecubi Primary refugio [facility] [place]: [address], [place] ? ? ? Needle 23g ? ? P_nc Butterfl Primary y [facility] [place]: [address], [place] ? ? ? Number of 1 ? ? P_nc Attempts [facility] [place]: [address], [place] ? ? ? Successful Yes ? ? P_nc [facility] [place]: [address], [place] ? ? ? Dressing Pressure ? ? P_nc Band-aid Primary Applied [facility] [place]: [address], [place] ? ? ? Initials hj ? ? P_nc [facility] [place]: [address], [place] ? Venipuncture ? Location Right ? ? P _nc Antecubi Primary refugio [facility] [place]: [address], [place] ? ? ? Needle 23g ? ? P_nc Butterfl Primary y [facility] [place]: [address], [place] ? ? ? Number of 1 ? ? P_nc Attempts [facility] [place]: [address], [place] ? ? ? Successful Yes ? ? P_nc [facility] [place]: [address], [place] ? ? ? Dressing Pressure ? ? P_nc Band-aid Primary Applied [facility] [place]: [address], [place] ? ? ? Initials hj ? ? P_nc [facility] [place]: [address], [place] ? Venipuncture ? Location Left ? ? P _nc Antecubi Primary refugio [facility] [place]: [address], [place] ? ? ? Needle 23g ? ? P_nc Butterfl Primary y [facility] [place]: [address], [place] ? ? ? Number of 1 ? ? P_nc Attempts [facility] [place]: [address], [place] ? ? ? Successful Yes ? ? P_nc [facility] [place]: [address], [place] ? ? ? Dressing Pressure ? ? P_nc Band-aid Primary Applied [facility] [place]: [address], [place] ? ? ? Initials hj ? ? P_nc [facility] [place]: [address], [place] ? Venipuncture ? Location Right ? ? P _nc Antecubi Primary refugio [facility] [place]: [address], [place] ? ? ? Needle 23g ? ? P_nc Butterfl Primary y [facility] [place]: [address], [place] ? ? ? Number of ? ? ? P_nc Attempts [facility] [place]: [address], [place] ? ? ? Successful Yes ? ? P_nc [facility] [place]: [address], [place] ? ? ? Dressing Pressure ? ? P_nc Band-aid Primary Applied [facility] [place]: [address], [place] ? ? ? Initials GJ ? ? P_nc [facility] [place]: [address], [place] ? Venipuncture ? Location Right ? ? P _nc Antecubi Primary refugio [facility] [place]: [address], [place] ? ? ? Needle 21g ? ? P_nc Vacutain Primary er [facility] [place]: [address], [place] ? ? ? Number of 1 ? ? P_nc Attempts Primary [facility] [place]: [address], [place] ? ? ? Successful Yes ? ? P_nc [facility] [place]: [address], [place] ? ? ? Dressing Pressure ? ? P_nc Band-aid Primary Applied [facility] [place]: [address], [place] ? ? ? Initials hj ? ? P_nc [facility] [place]: [address], [place] ? Venipuncture ? Location Left ? ? P _nc Antecubi Primary refugio [facility] [place]: [address], [place] ? ? ? Needle 21g ? ? P_nc Vacutain Primary er [facility] [place]: [address], [place] ? ? ? Number of 1 ? ? P_nc Attempts Primary [facility] [place]: [address], [place] ? ? ? Successful Yes ? ? P_nc Primary [facility] [place]: [address], [place] ? ? ? Dressing Pressure ? ? P_nc Band-aid Primary Applied [facility] [place]: [address], [place] ? ? ? Initials rs ? ? P_nc [facility] [place]: [address], [place] ? Venipuncture ? Location Right ? ? P _nc Antecubi Primary refugio [facility] [place]: [address], [place] ? ? ? Needle 21g ? ? P_nc Vacutain Primary er [facility] [place]: [address], [place] ? ? ? Number of 1 ? ? P_nc Attempts Primary [facility] [place]: [address], [place] ? ? ? Successful Yes ? ? P_nc Primary [facility] [place]: [address], [place] ? ? ? Dressing Pressure ? ? P_nc Band-aid Primary Applied Care [place]: Tino Bhatti ? ? ? Initials HJ ? ? P_nc Primary [facility] [place]: Tino Bhatti ? Glucose, Blood ? Blood 123 ? ? 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 02/04/2020 Degeneration of Lumbosacral Intervertebr al Disc; Medication Monitoring; Recurrent Urinary Tract Infection; Moderate Persistent Asthma; Rosacea Maddy Mahan MD: [address] [place] [phone], Ph. 01/06/2020 Acute on Chronic Diastolic Heart Failure ; Coronary Atherosclerosis Demetria Molina MD: [address] [place] [address], Ph. 12/13/2019 Chronic Right-sided Congestive Heart [place]; Anemia; Chronic Kidney Disease Stage 3; Hypomagnesemia; Hypothyroidism Maddy Mahan MD: [address] [place] [phone], Ph. 11/20/2019 Chronic Diastolic Heart Failure; Coronar y Arteriosclerosis; Chronic Kidney Disease Stage 4; Essential Hypertension Demetria Molina MD: [address] [place] [address], Ph. 11/12/2019 Compression Fracture of Lumbar Spine; Me dication Monitoring; Acute Urinary Tract Infection; Polymyalgia Rheumatica; Nausea and Vomiting; Chronic Kidney Disease Stage 3 Maddy Mahan MD: [address] [place] [phone], Ph. 09/20/2019 Cellulitis of Left Lower Limb; Chronic I schemic Heart Disease; Chronic Right- sided Congestive Heart Failure; Aortic Valve Stenosis; Bilateral Carotid Artery Occlusion; Anemia; Chronic Kidney Disease Stage 3 Maddy Mahan MD: [address] [place] [address], [place] [address], Ph. 09/03/2019 Cellulitis of Lower Limb; Moderate Persi stent Asthma Anna Sandoval HELP DESK COORDINATOR: [address] [facility] [place] [address], Ph. 08/19/2019 Compression Fracture of Lumbar Spine; Me dication Monitoring; Essential Hypertension; Right Ventricular Failure; Degeneration of Lumbosacral Intervertebral Disc; Moderate Persistent Asthma; Candidiasis o f Skin; Candidiasis of Mouth; Hyperglyce bertha Due to Type 2 Diabetes Mellitus; Polymyalgia Rheumatica; Gastroesophageal Reflux Disease without Esophagitis; Anemia; Irritable Bowel Syndrome; Hyperlipidemia ; Hypothyroidism; Chronic Ischemic Heart Disease; Allergic Rhinitis; Depressive Disorder; Restless Legs; Hypoxemia; Benign Paroxysmal Positional Vertigo; Vitamin D Deficiency; Aortic Valve Stenosis Maddy Mahan MD: [address] [place] [address], [place] [phone], Ph. 08/02/2019 Cellulitis of Left Lower Limb; Venous St asis Ulcer with Edema of Left Lower Leg Maddy Mahan MD: [address] [place] [address], [place] [phone], Ph. 07/31/2019 Pneumonia Maddy Mahan MD: [address] [place] [address], [place] [phone], Ph. 06/27/2019 Cellulitis of Left Lower Limb; Chronic R ight-sided Congestive Heart Failure; Hypothyroidism; Polymyalgia Rheumatica; Gastroesophageal Reflux Disease without Esophagitis; Abdominal Pain; Irritable Bowel Syndrome; Candidiasis of Mouth; Diabetes Mellitus; Anemia Maddy Mahan MD: [address] [place] [address], [place] [address], Ph. 05/27/2019 Compression Fracture of Lumbar Spine; Me dication Monitoring; Acute Bronchitis with Bronchospasm; Candidiasis of Skin Maddy Mahan MD: [address] [place] [address], [place] [address], Ph. 05/16/2019 Chronic Tracheobronchitis; Impacted Ceru men in Right Ear Maddy Mahan MD: [address] [place] [address], [place] [address], Ph. 04/01/2019 Compression Fracture of Lumbar Spine; Me dication Monitoring Maddy Mahan MD: [address] [place] [phone], Ph. 02/04/2019 Compression Fracture of Lumbar Spine; Di abetes Mellitus; Gastroesophageal Reflux Disease without Esophagitis; Hypothyroidism; Polymyalgia Rheumatica; Anemia Maddy Mahan MD: [address] [place] [phone], Ph. 12/13/2018 Compression Fracture of Lumbar Spine; Ab dominal Pain; B-cell Lymphoma (Clinical); Nonalcoholic Steatohepatitis Maddy Mahan MD: [address] [place] [phone], Ph. 11/06/2018 Compression Fracture of Lumbar Spine; Me dication Monitoring; Anemia; Right Ventricular Failure; Polymyalgia Rheumatica; Urinary Tract Infectious Disease; Diabetes Mellitus Maddy Mahan MD: [address] [place] [phone], Ph. 10/18/2018 Hernia of Anterior Abdominal Wall Mark Daigle MD: [address] [place] [phone], Ph. 09/28/2018 Hernia of Anterior Abdominal Wall; Cough ; Hernia of Abdominal Cavity Mark Daigle MD: [address] [place] [phone], Ph. 09/04/2018 Acute Bronchitis with Bronchospasm Maddy Mahan MD: [address] [place] [phone], Ph. Social History Tobacco Smoking Status Never Smoker Vaccine List Vaccine Type influenza, seasonal, injectable 12/29/2009?0.5 mL 12/18/2014?0.5 mL influenza, seasonal, injectable, preserv ative free 12/17/2010 12/26/2011 11/30/2012?0.5 mL 12/16/2013?0.5 mL 11/16/2015 12/12/2016?0.5 mL influenza, trivalent, adjuvanted 12/25/2017?0.5 mL pneumococcal conjugate PCV 13 12/25/2017?0.5 mL pneumococcal polysaccharide PPV23 12/15/2008 Plan of Care Patient Instructions Follow-up as scheduled. Follow-up as scheduled and sooner i f needed. Follow-up as scheduled. Follow-up as scheduled. Follow-up as scheduled. Follow up as scheduled. Reminders Provider Appointments None recorded. ? ? Lab None recorded. ? ? Referral None recorded. ? ? Procedures None recorded. ? ? Surgeries None recorded. ? ? Imaging None recorded. ? ? Vitals 02/21/2020 09:00AM Follow Up 20 Height Weight BMI Blood Pressure 154.94 cm 85.5 kg 35.6 kg/m2 150/72 mm[Hg] 02/04/2020 02:40PM Opioid Management 20 Height Weight Blood Pressure 154.94 cm 120/66 mm[Hg] 01/06/2020 09:00AM Follow Up 20 Height Weight BMI Blood Pressure 154.94 cm 83.95 kg 35 kg/m2 142/57 mm[Hg] 12/13/2019 02:00PM Follow Up 20 Height Weight BMI Blood Pressure 154.94 cm 84.37 kg 35.1 kg/m2 110/66 mm[Hg] 11/20/2019 09:20AM Consult 40 Height Weight BMI Blood Pressure 154.94 cm 80.75 kg 33.6 kg/m2 106/60 mm[Hg] 11/12/2019 03:00PM Opioid Management 20 Height Weight Blood Pressure 154.94 cm 132/66 mm[Hg] 09/20/2019 10:20AM Follow Up 20 Height Weight BMI Blood Pressure 154.94 cm 78.02 kg 32.5 kg/m2 126/70 mm[Hg] 09/03/2019 03:40PM Follow Up 20 Height Weight Blood Pressure 154.94 cm 128/70 mm[Hg] 08/19/2019 08:20AM Opioid Management 20 Height Blood Pressure 154.94 cm 140/72 mm[Hg] 08/02/2019 09:00AM Follow Up 20 Height Blood Pressure 154.94 cm 138/72 mm[Hg] 06/27/2019 08:20AM Acute 20 Height Weight Blood Pressure 154.94 cm 122/76 mm[Hg] 05/27/2019 08:40AM Opioid Management 20 Height Weight BMI 154.94 cm 77.11 kg 32.1 kg/m2 05/16/2019 02:40PM Acute 20 Height Weight BMI Blood Pressure 154.94 cm 78.02 kg 32.5 kg/m2 118/68 mm[Hg] 04/01/2019 12:40PM Opioid Management 20 Height Blood Pressure 154.94 cm 138/72 mm[Hg] 02/04/2019 09:40AM Follow Up 20 Height Weight BMI Blood Pressure 154.94 cm 78.02 kg 32.5 kg/m2 136/80 mm[Hg] 12/13/2018 12:40PM Follow Up 20 Height Weight BMI Blood Pressure 154.94 cm 78.93 kg 32.9 kg/m2 122/78 mm[Hg] 11/06/2018 09:40AM Opioid Management 20 Height Weight BMI Blood Pressure 154.94 cm 77.93 kg 32.5 kg/m2 140/80 mm[Hg] 10/18/2018 12:00PM Office 15 Height 154.94 cm 09/04/2018 03:00PM Acute 20 Height Weight BMI Blood Pressure 154.94 cm 77.48 kg 32.3 kg/m2 112/78 mm[Hg] 08/16/2018 09:40AM Opioid Management 20 Height Blood Pressure 154.94 cm 118/80 mm[Hg] 08/03/2018 09:20AM Follow Up 40 Height Blood Pressure 154.94 cm 122/74 mm[Hg] 07/19/2018 01:20PM Follow Up 40 Height Weight BMI Blood Pressure 154.94 cm 82.78 kg 34.5 kg/m2 110/68 mm[Hg] 06/28/2018 04:40PM Home Visit 40 Height Weight BMI Blood Pressure 154.94 cm 76.26 kg 31.8 kg/m2 130/70 mm[Hg] 05/28/2018 04:40PM [facility] 40 Height Blood Pressure 154.94 cm 144/78 mm[Hg] 05/22/2018 04:20PM [facility] 20 Height Weight BMI Blood Pressure 154.94 cm 78.93 kg 32.9 kg/m2 140/70 mm[Hg] 04/26/2018 03:20PM [facility] 20 Height Weight BMI Blood Pressure 154.94 cm 80.06 kg 33.3 kg/m2 122/58 mm[Hg] 04/18/2018 01:30PM Consult 30 Height Weight 154.94 cm 04/04/2018 04:00PM [facility] 20 Height Weight BMI Blood Pressure 154.94 cm 82.55 kg 34.4 kg/m2 132/70 mm[Hg] 03/27/2018 03:40PM [facility] 20 Height Weight BMI Blood Pressure 154.94 cm 80.85 kg 33.7 kg/m2 140/62 mm[Hg] 03/20/2018 04:40PM [facility] 20 Height Blood Pressure 154.94 cm 120/56 mm[Hg] 01/23/2018 02:30PM New Patient 40 Height Weight BMI Blood Pressure 154.94 cm 83.46 kg 34.8 kg/m2 130/70 mm[Hg] 12/25/2017 03:00PM Follow Up 40 Height Weight BMI Blood Pressure 154.94 cm 87.29 kg 36.4 kg/m2 122/60 mm[Hg] 12/05/2017 04:20PM [facility] 20 Height Weight BMI Blood Pressure 154.94 cm 87.54 kg 36.5 kg/m2 130/68 mm[Hg] 11/21/2017 05:00PM [facility] 20 Height Weight BMI Blood Pressure 154.94 cm 87.54 kg 36.5 kg/m2 160/70 mm[Hg] 10/31/2017 05:30PM [facility] 30 Height Blood Pressure 154.94 cm 144/80 mm[Hg] 10/23/2017 03:00PM Acute 20 Height 154.94 cm 10/19/2017 11:30AM Acute 30 Height Blood Pressure 154.94 cm 148/72 mm[Hg] 10/05/2017 10:30AM Follow Up 30 Height Weight BMI Blood Pressure 154.94 cm 92.53 kg 38.5 kg/m2 130/80 mm[Hg] 09/25/2017 01:30PM Follow Up 30 Height Weight BMI Blood Pressure 154.94 cm 92.58 kg 38.6 kg/m2 136/82 mm[Hg] 08/28/2017 01:30PM Follow Up 30 Height Weight BMI Blood Pressure 154.94 cm 97.07 kg 40.4 kg/m2 170/70 mm[Hg] 06/01/2017 Weight Blood Pressure 103.1 kg 152/80 mm[Hg] 04/27/2017 Blood Pressure 122/76 mm[Hg] 04/13/2017 Weight Blood Pressure 101.56 kg 140/66 mm[Hg] 04/07/2017 Weight Blood Pressure 109.86 kg 112/72 mm[Hg] 03/10/2017 Weight Blood Pressure 103.15 kg 112/66 mm[Hg] 02/07/2017 Weight Blood Pressure 101.56 kg 142/68 mm[Hg] 01/09/2017 Weight Blood Pressure 104.78 kg 128/78 mm[Hg] 12/30/2016 Weight Blood Pressure 104.83 kg 120/60 mm[Hg] 12/12/2016 Weight Blood Pressure 106.59 kg 114/76 mm[Hg] 10/04/2016 Height Weight Blood Pressure 154.94 cm 102.06 kg 110/78 mm[Hg] 09/19/2016 Weight Blood Pressure 106.59 kg 128/70 mm[Hg] 08/11/2016 Weight Blood Pressure 106.14 kg 144/74 mm[Hg] 07/25/2016 Blood Pressure 132/78 mm[Hg] 07/07/2016 Height Weight Blood Pressure 154.94 cm 103.87 kg 126/76 mm[Hg] 06/27/2016 Weight Blood Pressure 102.51 kg 130/70 mm[Hg] 06/03/2016 Height Weight Blood Pressure 154.94 cm (1) 102.69 kg (1) 120/72 mm[Hg] (2) 102.51 kg (2) 122/64 mm[Hg] 05/25/2016 Height Weight Blood Pressure 154.94 cm 103.87 kg 150/80 mm[Hg] 05/05/2016 Weight Blood Pressure 102.06 kg 130/74 mm[Hg] 05/02/2016 Weight Blood Pressure 102.06 kg 126/72 mm[Hg] 04/11/2016 Blood Pressure 138/68 mm[Hg] 04/06/2016 Height Weight Blood Pressure 154.94 cm 103.42 kg 145/90 mm[Hg] 03/14/2016 Weight Blood Pressure 105.23 kg 130/70 mm[Hg] 02/05/2016 Height Weight Blood Pressure 154.94 cm 104.33 kg 140/70 mm[Hg] 01/05/2016 Weight Blood Pressure 106.14 kg 142/62 mm[Hg] 12/10/2015 Blood Pressure 126/76 mm[Hg] 11/19/2015 Weight Blood Pressure 100.47 kg 166/70 mm[Hg] 11/10/2015 Weight Blood Pressure 104.78 kg 134/60 mm[Hg] 10/22/2015 Weight Blood Pressure 102.51 kg 130/68 mm[Hg] 10/13/2015 Height Weight Blood Pressure 154.94 cm 101.15 kg 122/78 mm[Hg] 08/11/2015 Weight Blood Pressure 103.87 kg 130/68 mm[Hg] 07/02/2015 Weight Blood Pressure 101.6 kg 126/74 mm[Hg] 05/07/2015 Weight Blood Pressure 104.78 kg 128/74 mm[Hg] 02/26/2015 Weight Blood Pressure 107.05 kg 134/78 mm[Hg] 02/09/2015 Weight Blood Pressure 109.54 kg 116/66 mm[Hg] 01/20/2015 Weight Blood Pressure 109.77 kg 120/68 mm[Hg] 12/18/2014 Weight Blood Pressure 110.45 kg 120/75 mm[Hg] 11/18/2014 Weight Blood Pressure 110.68 kg 122/62 mm[Hg] 10/20/2014 Weight Blood Pressure 108.41 kg 130/78 mm[Hg] 10/09/2014 Weight Blood Pressure 108.18 kg 138/70 mm[Hg] 09/25/2014 Height Weight Blood Pressure 154.94 cm 106.37 kg 136/90 mm[Hg] 09/17/2014 Weight Blood Pressure 106.37 kg 148/84 mm[Hg] 08/14/2014 Weight Blood Pressure 104.78 kg 120/60 mm[Hg] 07/15/2014 Weight Blood Pressure 106.82 kg 112/62 mm[Hg] 05/08/2014 Height Weight Blood Pressure 154.94 cm 102.97 kg 146/76 mm[Hg] 04/10/2014 Weight Blood Pressure 102.97 kg 130/74 mm[Hg] 02/07/2014 Weight Blood Pressure 102.97 kg 128/78 mm[Hg] 12/09/2013 Weight Blood Pressure 100.24 kg 148/78 mm[Hg] 10/08/2013 Weight Blood Pressure 102.51 kg 136/70 mm[Hg] 08/08/2013 Weight Blood Pressure 102.51 kg 124/64 mm[Hg] 07/22/2013 Weight Blood Pressure 103.42 kg 148/74 mm[Hg] 07/08/2013 Weight Blood Pressure 100.7 kg 116/74 mm[Hg] 06/24/2013 Weight Blood Pressure 106.14 kg 124/64 mm[Hg] 05/31/2013 Weight Blood Pressure 102.06 kg 124/74 mm[Hg] 05/22/2013 Height Weight Blood Pressure 154.94 cm 103.87 kg 160/80 mm[Hg] 05/20/2013 Weight Blood Pressure 102.97 kg 150/88 mm[Hg] 05/02/2013 Height Weight Blood Pressure 154.94 cm 104.33 kg 160/92 mm[Hg] 04/17/2013 Height Weight Blood Pressure 154.94 cm 104.55 kg 150/70 mm[Hg] 02/22/2013 Weight Blood Pressure 105.23 kg 122/64 mm[Hg] 01/14/2013 Weight Blood Pressure 106.14 kg 138/74 mm[Hg] 01/01/2013 Blood Pressure 170/70 mm[Hg] 12/31/2012 Weight Blood Pressure 107.5 kg 138/68 mm[Hg] 11/30/2012 Height Weight Blood Pressure 154.94 cm 107.95 kg 124/68 mm[Hg] 11/08/2012 Height Weight Blood Pressure 154.94 cm 111.13 kg 128/84 mm[Hg] 10/08/2012 Height Weight Blood Pressure 154.94 cm 111.13 kg 138/60 mm[Hg] 09/27/2012 Height Weight Blood Pressure 152.4 cm 110.68 kg 134/74 mm[Hg] 09/20/2012 Height Weight Blood Pressure 152.4 cm 112.63 kg 146/84 mm[Hg] 08/30/2012 Height Weight Blood Pressure 152.4 cm 114.76 kg 140/70 mm[Hg] 08/15/2012 Height Weight Blood Pressure 152.4 cm 111.13 kg 142/78 mm[Hg] 08/02/2012 Height Weight Blood Pressure 152.4 cm 111.58 kg 126/70 mm[Hg] 07/19/2012 Height Weight Blood Pressure 152.4 cm 113.4 kg 146/70 mm[Hg] 06/19/2012 Height Weight Blood Pressure 152.4 cm 110.22 kg 148/80 mm[Hg] 06/08/2012 Height Weight Blood Pressure 152.4 cm 109.32 kg 146/64 mm[Hg] 05/23/2012 Height Weight Blood Pressure 152.4 cm 107.5 kg 138/70 mm[Hg] 2012 Height Weight Blood Pressure 152.4 cm 110.68 kg 138/82 mm[Hg] 04/27/2012 Height Weight Blood Pressure 152.4 cm 107.95 kg 160/80 mm[Hg] 04/12/2012 Height Weight Blood Pressure 152.4 cm 106.59 kg 114/74 mm[Hg] 04/11/2012 Height Weight Blood Pressure 152.4 cm 106.59 kg 138/82 mm[Hg] 03/13/2012 Height Weight Blood Pressure 157.48 cm 108.86 kg 130/82 mm[Hg] 02/21/2012 Height Weight Blood Pressure 157.48 cm 108.86 kg 144/84 mm[Hg] 02/14/2012 Height Weight Blood Pressure 157.48 cm 110 kg 156/74 mm[Hg] 12/29/2011 Height Weight Blood Pressure 157.48 cm 111.58 kg 144/64 mm[Hg] 11/30/2011 Height Weight Blood Pressure 157.48 cm 110.68 kg 148/84 mm[Hg] 11/16/2011 Height Weight Blood Pressure 157.48 cm 110.68 kg 126/86 mm[Hg] 11/10/2011 Blood Pressure 152/72 mm[Hg] 11/10/2011 Weight 109.77 kg 11/01/2011 Height Weight Blood Pressure 157.48 cm 112.04 kg 140/82 mm[Hg] 10/25/2011 Height Weight Blood Pressure 157.48 cm 112.04 kg 130/84 mm[Hg] 10/17/2011 Height Weight Blood Pressure 157.48 cm 107.5 kg 142/72 mm[Hg] 07/11/2011 Height Weight Blood Pressure 157.48 cm 109.32 kg 158/80 mm[Hg] 04/25/2011 Height Weight Blood Pressure 157.48 cm 109.32 kg 156/90 mm[Hg] 04/12/2011 Weight Blood Pressure 109.32 kg 148/68 mm[Hg] 03/29/2011 Weight Blood Pressure 109.77 kg 142/80 mm[Hg] 03/14/2011 Height Weight Blood Pressure 157.48 cm 106.14 kg 150/74 mm[Hg] 02/21/2011 Height Weight Blood Pressure 157.48 cm 106.14 kg 146/86 mm[Hg] 01/31/2011 Height Weight Blood Pressure 157.48 cm 106.14 kg 148/70 mm[Hg] 01/18/2011 Height Weight Blood Pressure 157.48 cm 107.5 kg 150/90 mm[Hg] 11/24/2010 Weight Blood Pressure 107.5 kg 160/80 mm[Hg] 09/21/2010 Height Weight Blood Pressure 154.94 cm 108.86 kg 130/86 mm[Hg] 08/24/2010 Height Weight Blood Pressure 154.94 cm 107.95 kg 146/78 mm[Hg] 07/30/2010 Height Weight Blood Pressure 154.94 cm 105.69 kg 164/78 mm[Hg] 07/05/2010 Height Weight Blood Pressure 154.94 cm 105.69 kg 158/78 mm[Hg] 06/21/2010 Blood Pressure 136/76 mm[Hg] 06/17/2010 Height Blood Pressure 154.94 cm 136/72 mm[Hg] 06/15/2010 Height Blood Pressure 154.94 cm 158/76 mm[Hg] 05/24/2010 Height Weight Blood Pressure 154.94 cm 108.18 kg 162/70 mm[Hg] 03/31/2010 Weight Blood Pressure 108.41 kg 138/84 mm[Hg] 12/24/2009 Height Weight Blood Pressure 154.31 cm 108.41 kg 168/72 mm[Hg] 10/23/2009 Weight Blood Pressure 105.69 kg 138/78 mm[Hg] 09/17/2009 Weight Blood Pressure 105.69 kg 166/82 mm[Hg] 06/29/2009 Weight Blood Pressure 106.14 kg 170/80 mm[Hg] 01/02/2006 Weight 102.06 kg 10/27/2005 Height 13.21 cm
--- OUTSIDE RECORDS SUMMARY | 2020-03-03 13:12 | XMS_ITS | Encounter Summary ---
:1940 Author Care Team Providers Name Role Phone Perry Graham MD Primary Care Provider [phone] Demetria Molina MD [employer] [phone] Guzman Chapman MD [employer] [phone] Abdiel Daigle MD General Surgeon [phone] Reason for Visit hyperlipidemia; Follow Up Medication mark nges; CAD - Coronary Artery Disease; HTN-Hypertension Assessment and Plan 1. Atherosclerosis of coronary a rtery without angina pectoris No recent anginal symptoms, ca rdiac catheterization disclosed patent grafts 2. Chronic diastolic heart failu re Patient is symptomatically imp roved since her hospitalization at [facility]. Her last laboratory disclosed a BUN of 94, creatinine 1.8 and proBNP 1270. I made no medication changes today. It ap pears that some degree of prerenal azote bertha is necessary to prevent volume overload We will plan follow-up in approximately 3 months Discussion Note: None recorded.Patient educational handouts: No information available. Plan of Care Reminders Provider Appointments Opioid 04/28/2020 Perry villalta, Management 20 1:20PM ? Follow up 20 on or around Manuel villalobos Dana 05/21/2020 MD Tracy ? Nurse 20 08/11/2020 Nurse Mayank jama 8:20AM ? Follow up 20 08/18/2020 Vinay Graham, 8:20AM Lab None ? ? recorded. Referral None ? ? recorded. Procedures None ? ? recorded. Surgeries None ? ? recorded. Imaging None ? ? recorded. Medications Name Start Date ? ? Advair Diskus 100 mcg-50 mcg/dose powder for inhalatio n ? Inhale 1 inhalation twice a day by inhalation route f or 90 days. amlodipine 5 mg tablet ? Take 1 tablet every day by oral route for 90 days. Animi-3 With Vitamin D 500 mg-1,000 unit-500 mcg capsu le ? Take 1 capsule every day by oral route for 90 days. atorvastatin 20 mg tablet ? Take 1 tablet every day by oral route for 90 days. Bentyl 20 mg tablet 06/25/2018 Take 1 tablet every 6 hours by oral route as needed. Brilinta 90 mg tablet ? TAKE 1 TABLET BY MOUTH TWICE DAILY bumetanide 2 mg tablet ? Take 1 tablet twice a day by oral route for 90 days. Bystolic 10 mg tablet ? TK 1 T PO QD cephalexin 500 mg capsule ? TAKE 1 CAPSULE BY MOUTH THREE TIMES DAILY FOR 7 DAYS fentanyl 12 mcg/hr transdermal patch ? APPLY 1 PATCH EXTERNALLY TO THE SKIN EVERY OTHER DAY ferrous sulfate 325 mg (65 mg iron) tablet ? TK 1 T PO ONCE D gabapentin 100 mg capsule ? TAKE 2 CAPSULES BY MOUTH THREE TIMES DAILY ipratropium 0.5 mg-albuterol 3 mg (2.5 mg base)/3 mL n ebulization soln ? Inhale 3 mL every 4 hours by nebulization route as ne eded for 90 days. levothyroxine 150 mcg tablet ? Take 1 tablet every day by oral route for 90 days. lidocaine 5 % topical patch ? Apply 1 patch every day by topical route as needed fo r 30 days. loratadine 10 mg tablet ? TK 1 T PO QD IN THE MORNING meclizine 25 mg tablet ? Take 0.5 tablets 3 times a day by oral route as neede d for 30 days. metronidazole 0.75 % topical gel ? APPLY EXTERNALLY TO THE AFFECTED AREA TWICE DAILY DIRECTED Miralax 17 gram/dose oral powder ? Take 17 g every day by oral route for 30 days. nitroglycerin 0.4 mg sublingual tablet ? Place 1 tablet as needed by sublingual route as direc eron for 90 days. nystatin 100,000 unit/gram topical cream ? Apply 1 application 3 times a day by topical route as needed for 30 days. nystatin 100,000 unit/mL oral suspension ? Take 5 mL 4 times a day by oral route as directed for 30 days. Nystop 100,000 unit/gram topical powder ? Apply 1 application 3 times a day by topical route as needed for 30 days. omeprazole 40 mg capsule,delayed release ? TAKE 1 CAPSULE BY MOUTH TWICE DAILY OneTouch Ultra Blue Test Strip ? Take 1 strip 4 times a day by miscell. route before m eals for 90 days. pramipexole 1 mg tablet ? Take 1 tablet twice a day by oral route for 90 days. prednisone 5 mg tablet ? TK 3 TS PO QD AND TITRATE UTD sertraline 100 mg tablet ? Take 2 tablets every day by oral route for 90 days. spironolactone 25 mg tablet ? TAKE 1 TABLET BY MOUTH EVERY DAY sucralfate 1 gram tablet ? Take 1 tablet 4 times a day by oral route as directed for 90 days. Tylenol 325 mg tablet 06/25/2018 Take 2 tablets every 4 hours by oral route as needed. Ventolin HFA 90 mcg/actuation aerosol inhaler ? INHALE 2 PUFFS BY MOUTH EVERY 3 TO 4 HOURS NEEDED Vitamin D3 25 mcg (1,000 unit) tablet ? Take 2 tablets every day by oral route for 90 days. Medications Administered None recorded. Vitals Height Weight BMI Blood Pressure 5 ft 1 in 85.5 kg 35.6 kg/m2 150/72 mm[Hg] Results Lab Results None recorded. Allergies Code Code System Name Reaction Severity Onset 1191 RxNorm Aspirin Facial Swelling Moderate ? 32227 RxNorm Gabapentin Other ? ? 7052 RxNorm Morphine ? ? ? Nsaids ? ? ? (Non-steroidal Anti-inflammatory Drug) 9071 RxNorm Quinine Facial Swelling ? ? Sulfa (Sulfonamide Facial Swelling ? ? Antibiotics) Tetanus and Myalgias Severe ? Diphtheria Toxoids (Muscle Pain) Notes: No seafood/contrast aller gy. Problems Name Status Onset Date Source ? [...] Active ? History Arteriosclerosis of Coronary Artery Bypass Active ? History Graft Chronic Ischemic Heart Disease Active ? H istory Transient Cerebral Ischemia Active ? Hist ory Peripheral Venous Insufficiency Active ? History Allergic Rhinitis Active ? History Pneumonia Active ? History Moderate Persistent Asthma Active ? Histo ry Gastroesophageal Reflux Disease without Active ? History Esophagitis Gastritis Active ? History Irritable Bowel Syndrome Active ? History Acute and Chronic Cholecystitis Active ? History Urinary Tract Infectious Disease Active ? History Postmenopausal Bleeding Active ? History Hidradenitis Suppurativa Active ? History Arthropathy Active ? History Degeneration of Lumbosacral Intervertebral Active ? History Disc Polymyalgia Rheumatica Active ? History Syncope [...] Hi story Coronary Artery Bypass Graft Stent Present Active ? 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 N Blind or serious difficulty N Notes: Chester s blurred seeing vision, no correctiv e lenses Chewing tobacco none Have you had close contact with N someone who travelled internationally and was ill? Most Recent Tobacco Use 02/21/2020 Screening Advance directive N E-cigarette/Vape Status Never used electronic cigarettes Exercise level Occasional Notes: Ambulates around house with RWmaryann for ADL's Animal exposure? Y Notes: cats Alcohol intake None Live alone or with others? with others Notes: Pat susan stays in own home, children l fam next to patient. ey help her get up and go to bed and provide all meals. Smokeless Tobacco Status Never used smokeless tobacco Language Difficulties Yes Notes: czech Passive smoke exposure? N Hard of hearing or deaf in one N or both ears? 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 Occupation retired Family History Relation Problem Onset Age of Age Notes Brother Hypertensive disorder (No N/A (No No lashawn) Information) Daughter Allergy (No N/A (No Notes) Information) Sister Arthritis (No N/A (No Notes) Information) Father Diabetes mellitus (No N/A (No Notes) Information) Father Hypertensive disorder (No N/A (No No lashawn) Information) Father Myocardial infarction (No N/A (No No lashawn) Information) Father Cerebrovascular accident (No N/A (No Notes) Information) Functional Status No Impairment. Past Encounters 02/21/2020 Atherosclerosis of Coronary Artery witho ut Angina Pectoris; Chronic Diastolic Heart Failure Demetria Molina MD: [address] [place] [id number], Ph. 02/04/2020 Degeneration of Lumbosacral Intervertebr al Disc; Medication Monitoring; Recurrent Urinary Tract Infection; Moderate Persistent Asthma; Rosacea Perry Graham MD: [address] [place] [phone], Ph. History of Present Illness Note: <p>This 79-year-old woman presents for follow-up. She reports that her biggest problem isarm pain. Overall she is not very active. She does not do any of her own housework and requires assistance for activities of daily living. She walks using a rolling walker. She noted that she was dyspneic coming here for her visit
</p><p>She has had no symptoms concerning for angina. The swelling in her legs has been minimal
</p> Review of Systems ? Brief Cardiology ROS Reported By: Patient Cardio Basic: Cardiovascular Symptoms: no chest pressure, no chest pain, dyspnea on exertion, fatigue, leg edema , shortness of breath Physical Exam ? Cardiology Exam Reported By: Patient Constitutional: General Appearance: ; Obese elderly woman in no acute distress Eyes: Pupils: PERRLA Neck: Carotid Arteries: bilateral normal upstroke. Jugular Veins: jugular venous pressure unable to as sess Lungs: Auscultation: clear Cardiovascular: Precordial Exam: non palpabl e. Heart Sounds: ; Giller, 2/6 systolic ejection quality murmur. Ext remities: ; Trace edema, wearing compression stockings Abdomen: Inspection and Palpation: no n tender Skin: Inspection and Palpation: wa rm and dry
--- OUTSIDE RECORDS SUMMARY | 2020-03-03 13:12 | XMS_ITS | Encounter Summary ---
:1940 Author Care Team Providers Name Role Phone Perry Graham MD Primary Care Provider [phone] Demetria Molina MD Dairy Associate [phone] Guzman Chapman MD Dairy Associate [phone] Abdiel Daigle MD General Surgeon [phone] Reason for Visit Chronic right-sided congestive heart emelina lure Assessment and Plan Assessment Note This is a 79-year-old lady with rec ent exacerbation CHF presently stabilized. We will follow-up lab and continue medical monitoring as scheduled. 1. Chronic right-sided congestiv e heart failure Patient will continue present medical regimen which has been adjusted recently with hospitalization with follo w-up lab. ? venipuncture ? BNP (B-type natriuretic pe ptide), prohormone N-terminal, quant, immunoassay, blood 2. Anemia Follow-up for deficiencies and adjust therapy accordingly. This may be associated with her chronic lymphoma. Nicole medina is seeing hematology/oncology at [facility]. ? CBC w/ auto diff 3. Chronic kidney disease stage 3 Follow-up lab on adjusted diur etics. ? renal function panel, seru m 4. Hypomagnesemia Follow-up lab and adjust suppl ement and diet as needed. ? magnesium, QN, serum or pl asma 5. Hypothyroidism Follow-up lab today on present medical regimen and adjust treatment to goal. ? T4, free, serum ? TSH, serum or plasma ? T3, total, serum Discussion Note: None recorded.Patient educational handouts: No information available. Plan of Care Patient Instructions Follow-up as scheduled. Reminders Provider Appointments Opioid 04/28/2020 Perry Grayson 20 1:20PM MD Gladys ? Follow up 20 on or around Manuel Cortez 05/21/2020 MD Tracy ? Nurse 20 08/11/2020 Nurse Mayank jama 8:20AM ? Follow up 20 08/18/2020 Vinay d 8:20AM MD Gladys Lab Renal Function 12/13/2019 No rt Country Panel, Serum Hospital Lab (Internal) ? CBC W/ Auto 12/13/2019 [facility] Diff Hospital Lab (Internal) ? Magnesium, QN, 12/13/2019 No rt Country Serum or Plasma Hospital Lab (Internal) ? T4, Free, 12/13/2019 [facility] Serum Hospital Lab (Internal) ? TSH, Serum or 12/13/2019 [facility] Plasma Hospital Lab (Internal) ? T3, Total, 12/13/2019 [facility] Serum Hospital Lab (Internal) ? Venipuncture 12/13/2019 [facility] [place] ? BNP (B-type 12/13/2019 [facility] Natriuretic Peptide), Hospital L ab Prohormone N-terminal, (Internal ) Quant, Immunoassay, Blood Referral None recorded. ? ? Procedures None recorded. ? ? Surgeries None recorded. ? ? Imaging None recorded. ? ? Medications Name Start Date ? ? Advair [...] BMI Blood Pressure 5 ft 1 in 185 lbs 16 oz 35.1 kg/m2 110/66 mm[Hg] Results Lab Results Date Name Specimen Result Interpretation Description Value Range Status Address ? 12/13/2019 CBC W/ Auto BLD High Wbc 10.2 10*3/uL 5.0-10.0 Final North Diff 10*3/uL [facility] L [facility] (Internal) : [address] [place] ? ? BLD Low Rbc 3.81 10*6/uL 4.10-5.30 Final N orth 10*6/uL [facility] (Internal) : [address] t ? ? BLD Low Hgb 10.2 g/dL 12.0-16.0 Final Nort h g/dL [facility] (Internal) : [address] t ? ? BLD Low Hct 33.2 % 37.0-47.0 Final [facility] L ab (Internal) : [address] t ? ? BLD ? Mcv 87.1 fL 80.0-96.0 Final [facility] (Internal) : [address] t ? ? BLD ? Mch 26.8 pg 26.0-32.0 Final [facility] L [facility] (Internal) : [address] t ? ? BLD Low Mchc 30.7 g/dL 31.0-35.0 Final Nort h g/dL [facility] (Internal) : [address] t ? ? BLD High Rdw 16.0 % 11.5-14.5 Final [facility] L ab (Internal) : [address] t ? ? BLD ? Plt 243 10*3/uL 130-450 Final Nort h 10*3/uL [facility] (Internal) : [address] t 12/13/2019 Renal S High g/r 163 mg/dL 74-106 Final Nor th Function mg/dL Country Panel, Serum Hosp ital Lab (Internal) : [address] t ? ? S High Bun 55 mg/dL 7-17 Final North mg/dL [facility] (Internal) : [address] t ? ? S High Crea 1.60 mg/dL 0.52-1.04 Final Nor th mg/dL [facility] (Internal) : [address] t ? ? S ? Ca 9.5 mg/dL 8.4-10.2 Final [place] mg/dL [facility] L ab (Internal) : [address] t ? ? S ? Phos 4.2 mg/dL 2.5-4.5 Final [place] mg/dL [facility] L ab (Internal) : [address] t ? ? S ? Na 138 mmol/L 137-145 Final [place] mmol/L [facility] L ab (Internal) : [address] t ? ? S ? K 4.7 mmol/L 3.5-5.1 Final [place] mmol/L [facility] L ab (Internal) : [address] t ? ? S Low Cl 96 mmol/L 98-107 Final [place] mmol/L [facility] L ab (Internal) : [address] t ? ? S ? Tco2 28.0 mmol/L 22.0-30.0 Final No rth mmol/L [facility] L ab (Internal) : [address] t ? ? S ? Alb 4.5 g/dL 3.5-5.0 Final [place] g/dL [facility] L ab (Internal) : [address] t ? ? S Low GFR (Calc) 31 >89 Final [facility] L [facility] (Internal) : [address] [facility] 12/13/2019 Magnesium, S High mg 2.4 mg/dL 1.6-2.3 Final [place] QN, Serum or mg/dL Coun [facility] Plasma Hospital L [facility] (Internal) : [address] [facility] 12/13/2019 T4, Free, S ? Ft4 1.52 NG/dL 0.78-2.19 Fin [facility] Serum NG/dL [facility] L ab (Internal) : [address] [facility] 12/13/2019 TSH, Serum or S ? Tsh 1.15 0.47-4.68 Fin [facility] Plasma u[IU]/mL u[IU]/mL [facility] L ab (Internal) : [address] [facility] 12/13/2019 BNP (B-type S High Nt-probnp 1360 pg/mL 0-450 Final [place] Natriuretic pg/mL Count ry Peptide), [facility] Pro[facility]ormone (Inter nal): N-terminal, [address], [place] Immunoassay, Blood 12/13/2019 T3, Total, S Low T3, Total 79 NG/dL 97-169 Fin [facility] Serum NG/dL [facility] (Internal) : [address] ? Venipuncture ? Location Left ? ? P [facility]nc Primary [facility] [place]: [address], [place] ? ? ? Needle 23g ? ? P_nc Prim harpreet Butterfly [facility] [place]: [address], [place] ? ? ? Number of 1 ? ? P_nc P rimary Attempts Care [place]: [address], [place] ? ? ? Successful Yes ? ? [facility] [place]: [address], [place] ? ? ? Dressing Pressure ? ? P_nc Primary Band-aid Care Applied [place]: [address], [place] ? ? ? Initials hj ? ? P[facility] Pr imary Care [place]: [address], [place] Allergies Code Code System Name Reaction Severity Onset 1191 RxNorm Aspirin Facial Swelling Moderate ? 39781 RxNorm Gabapentin Other ? ? 7052 RxNorm [...] or with others? with others Notes: Pat ient stays in own home, children l fam next to patient. Th ey help her get up and go to bed and provide all meals. Smokeless Tobacco Status Never used smokeless tobacco Language Difficulties Yes Notes: azeri Passive smoke exposure? N Hard of hearing [...] Information) Functional Status No Impairment. Past Encounters 12/13/2019 Chronic Right-sided Congestive Heart Emelina lure; Anemia; Chronic Kidney Disease Stage 3; Hypomagnesemia; Hypothyroidism Perry Graham MD: [address] [place] [phone], Ph. 11/20/2019 Chronic Diastolic Heart Failure; Coronar y Arteriosclerosis; Chronic Kidney Disease Stage 4; Essential Hypertension Demetria Molina MD: [address] [place] [phone], Ph. History of Present Illness ? CHF F/U Reported By: Patient HPI: Weight Changes: ; Up 6 pound s from last visit here, one note from [facility] stated she was around 175. N octurnal Symptoms: no orthopnea, nocturia. Dietary Compliance: does not comply with low sodium diet. Diuretic Use: ; Taken off torsemide, and p ut on bumetanide. Alleviating Factors: relieved with oxygen. Aggrav ating Factors: worse with activity Note: <p>This is a 79-year-old female patient here to follow up recent discharge from [facility]. Shewas admitted with a CHF exacerbation and pneumonia. Patient would like to get an order for suppositories to help her have a BM. SHe also states she needs lab work done. Patient is very tired and falling asleep while in between me asking questions. </p>Review of Systems: ROS as noted in the HPI Review of Systems ? Notes: <p>13 point review of system s otherwise unrevealing or stable.
</p> Physical Exam ? Notes: <p>General Mental Status - A lert. General Appearance - Cooperative and disheveled appearing chronic ally ill and slightly anxious, mildly depressed but improved mentation and s peech, patient does smile at times and has improved variation of affect , not in acute distress. Orientation - Oriented X3. Build & Nutrition - Obes e though she has lost weight and Well developed. Posture - Stooped posture. G ait - Limping and markedly antalgic leaning to the right when walking with walk er. Strength - Uses hands to rise up from chair. Hydration - Well hydrated. V oice - Hoarse.</p><p>Skin General Color - Pale with no apparent bruising. M oisture - Dry. Temperature - Warm. Texture - Smooth. Thickness - Thick. M obility & Turgor - Normal turgor. Rashes Maculopapular Rash - Locatio n - Face. Appearance consistent with - Seborrheic dermatitis (rosacea) which i s only scant today. Maculopapular erythematous rash under the breast consis tent with intertriginous candidiasis recurrent.</p><p>HEENT Head Shape - Normocephalic with balding and thinning hair over her scalp in the p arietal and parieto-occipital areas of the scalp. Face - Atraumatic with no sw elling today. Ears - External ears normal mouth & Throat Teeth and Gums - Nome ures-upper and Dentures-lower with the upper plate now replaced with new dentur e plates which fit well. Oropharynx - Oral Mucosa - Dry with slight erythema. Tongue - Dry.</p><p>Neck - Supple. Bruits versus transmitted aortic stenosis murmur more the right than left carotid.</p><p>Chest and Jed g Exam Inspection Chest Wall - Normal with well-healed sternal scar and slightly prominent bony prominence over the left upper sternal border consist ent with arthritic changes. Shape - Normal. Movements - Symmetrical and Shallow. Accessory muscles - No use of accessory muscles in breathing. Auscul tation Breath sounds - Bronchovesicular - Both Lung [place] with decreased a eration more on the left base with some dullness to percussion. Adventitious sounds - No Adventitious sounds without focalizing rales or rhonchi.</p><p>C ardiovascular Auscultation Rhythm - Regular. Heart Sounds - S1 WNL and S2 WNL, S3 gallop, No S4. Murmurs & Other Heart Sounds - Auscultation of the heart re veals - No Pericardial Friction Rubs. Murmur 1 - Location - Aortic Area. Noble ng - Crescendo. Grade - III/.</p><p>Abdomen Inspection reveals - No dist ention. Contour - Obese (pannus). Palpation/Percussion Palpati on and Percussion of the abdomen reveal - Soft. Tenderness - Generalized (mi ld).</p><p>Peripheral Vascular Upper Extremity Inspection - Bilateral - Nor mal - No Clubbing, No Cyanosis, No Edema, Pulses Intact. Lower Extremity Insp ection - Bilateral - Loss of hair, Pigmented and Shiny atrophic skin (especia lly over ankles with atrophy and hardness to mid-calf on the left), Not A crocyanotic. Palpation - Temperature - Bilateral - Warm with increased warmth o n the left compared to right. Tenderness - Bilateral - More on the righ t to palpation anteriorly. Edema - Bilateral - Non-pitting edema decreased with compression stockings in place. <span>Moisture - Bilateral - Dry.</span></p><p>Neurologic evaluation reveals - upper and lower ex tremity deep tendon reflexes intact bilaterally and Muscle tone is normal. M otor Strength - Screening motor exam intact - Screening motor exam intact. 5/5 normal muscle strength - All Muscles but appear weaker when guarding pain. Involuntary Movements - Resting tremor - Left Upper Extremity and Rig ht Upper Extremity less notable today. Cranial nerves II through XII - edel sly intact. Coordination - Tandem walking impaired and Romberg sign positive. G ait - Broad-based.</p><p>Neuropsychiatric, patient's mood and affect ar e described as - anxious, hypomania, stable, depressed. Judgment and Insi ght - the patient displays inappropriate judgment regarding every day activiti es, there is a lack of insight concerning matters relevant to self, judgment i s inappropriate in social situations (less victimization thought proces ses and appearing to have better insight about her overall health and prognosis ).</p><p>Musculoskeletal General Movements - Range of motion decreased in all j oints. Joints and Muscles - Generalized muscle tenderness.</p><p>Spine Swel ling - No Localized swelling. Movements - Range of motion decreased, Movements painful, Extension restricted and Extension painful. Deformities - Loss of lumbar lordosis with dextroscoliosis noted on x-ray and kyphotic posture. Other Characteristics - Paraspinous muscle spasm, Tenderness over thoracic and lumbar vertebra without point tenderness, Straight leg raising negativ e - L, Straight leg raising negative - R. No CVA tenderness.</p><p>Shoulder S welling - Bilateral - No Localized swelling. Movements - Bilateral - Rang e of motion decreased but improved abduction, Movements painful with right worse than left, Abduction restricted with right worse than left, Internal ro tation restricted and External rotation restricted, No restriction i n adduction. Deformities - Bilateral - No deformities. Other Character istics - Left - Mildly tender. Right - Exquisitely tender and essentially froze n with minimal movement. Bilateral - Clicking, Crepitus and Periarticular m uscles atrophic (right worse).</p><p>Hips reveal rotational joint tenderness over the right hip and not over the left hip.
</p>
--- OUTSIDE RECORDS SUMMARY | 2020-03-03 13:12 | XMS_ITS | Encounter Summary ---
:1940 Author Care Team Providers Name Role Phone Perry Graham MD Primary Care Provider [phone] Demetria Molina MD Securities Underwriter [phone] Guzman Chapman MD Securities Underwriter [phone] Abdiel Daigle MD General Surgeon [phone] Reason for Visit hyperlipidemia; CAD - Coronary Artery Di sease; HTN-Hypertension Assessment and Plan 1. Acute on chronic diastolic he art failure The patient looks a bit volume overloaded today. She has decreased breath sounds at both bases suggesting possible pleural effusions and she is mildly edematous. Overall she feels that she is retaining fluid I have elected to incr ease her Bumex to 2 mg twice daily. We will plan follow-up in approximately 6 weeks, sooner as needed ? bumetanide 2 mg tablet 2. Coronary atherosclerosis The patient describes atypical chest pain. Fortunately recent cardiac catheterization disclosed patent grafts Discussion Note: None recorded.Patient educational handouts: No [...] BMI Blood Pressure 5 ft 1 in 83.95 kg 35 kg/m2 142/57 mm[Hg] Results Lab Results None recorded. Allergies Code Code System Name Reaction Severity Onset 1191 RxNorm Aspirin Facial Swelling Moderate ? 56354 RxNorm Gabapentin Other ? ? 7052 RxNorm [...] or with others? with others Notes: Pat iejosefina stays in own home, children l fam next to patient. ey help her get up and go to bed and provide all meals. Smokeless Tobacco Status Never used smokeless tobacco Language Difficulties Yes Notes: afghan Passive smoke exposure? N Hard of hearing [...] Information) Functional Status No Impairment. Past Encounters 01/06/2020 Acute on Chronic Diastolic Heart Failure ; Coronary Atherosclerosis Demetria Molina MD: [address] [facility] [place] [phone], Ph. 12/13/2019 Chronic Right-sided Congestive Heart [place]; Anemia; Chronic Kidney Disease Stage 3; Hypomagnesemia; Hypothyroidism Perry Graham MD: [address] [place] [phone], Ph. History of Present Illness Note: <p>This 79-year-old woman presents for routine follow-up. She is doing fairly well since her last visit without interim hospitalizations. She does report that her furosemide was changed to bumetanide. She describes relatively delayed diuresis after taking it. She takes the medication in the morning around 8, and does not start to diurese until late morning or early afternoon
</p><p>Her breathing is fair. It depends what she is doing. She thinks she is retaining fluid.She thinks her legs are more swollen overall her whole body feels heavier
</p><p>She describes sharp brief left-sided chest pain lasting only seconds
</p> Review of Systems ? Brief Cardiology ROS Reported By: Patient Cardio Basic: Cardiovascular Symptoms: dennys st pain, dyspnea on exertion, leg edema, shortness of breath Physical Exam ? Cardiology Exam Reported By: Patient Constitutional: General Appearance: ; Obese chronically ill woman not in acute distress Eyes: Pupils: PERRLA Neck: Neck: trachea midline. Carot id Arteries: bilateral normal upstroke, no bruits. Jugular Veins: ju gular venous pressure unable to assess Lungs: Auscultation: ; Decreased br eath sounds bilateral bases more on the left than the right Cardiovascular: Precordial Exam: non palpabl e. Rate And Rhythm: regular. Heart Sounds: ; 2/6 systolic eject ion quality murmur. Extremities: ; 1+ edema, wearing compression s tockings Abdomen: Inspection and Palpation: ; Obese and nontender Skin: Inspection and Palpation: wa rm and dry
--- NOTE | 2020-03-03 13:15 | DI.US_ITS ---
EXAM: US LOWER EXTREMITY VENOUS LT CLINICAL HISTORY: r/o DVT. TECHNIQUE: Lower extremity venous ultrasound performed using grayscale, color-flow, and spectral Do ppler analysis. COMPARISON: No exams were available for comparison FINDINGS: The common femoral, femoral and popliteal veins demonstrate normal compressibility, augmentation, and color Doppler. The posterior tibial veins are patent. No saphenous vein thrombosis or other superfi cial venous thrombosis is seen. No hematoma or Meeks's cyst is seen. There is mild calf edema. IMPRESSION: Mild calf edema.. No evidence of DVT. DATA REPOSITORY:
[2020-03-03 13:17] VITALS: BP 137/55; PULSE 62; TEMP 36.7; O2SAT 96
[2020-03-03 13:23] VITALS: RESP 18
[2020-03-03 13:51] LABS: Abs Immature Grans 0.12 10^3/uL (0.0-0.06); Absolute Basophil Count 0.02 10^3/uL (0.0-0.2); Absolute Eosinophil Count 0.07 10^3/uL (0.0-0.7); Absolute Monocyte Count 0.46 10^3/uL (0.1-0.8); Absolute Neutrophil Count 7.71 10^3/uL (1.2-6.7); Basophils % 0.2; Eosinophils % 0.8; HCT 32.3 % (36.0-46.0); HGB 10.1 g/dL (11.2-15.7); Immature Grans % 1.3; Lymphocytes % 9.7; MCH 27.5 pg (27.0-33.0); MCHC 31.3 % (32.0-36.0); MPV 9.9 fL (8.0-11.0); Nucleated RBC 0 %; Platelet Count 157 10^3/uL (130-400); RBC 3.67 10^6/uL (3.93-5.22); RDW 16.5 % (11.7-14.6); RDW-SD 53.3 fL; WBC 9.28 10^3/uL (4.4-10.8)
[2020-03-03 14:05] LABS: ALT 32 U/L (14-59); AST 22 U/L (15-37); Albumin 3.5 g/dL (3.4-5.0); Alkaline Phosphatase 79 U/L (46-116); BUN 42 mg/dL (7-18); Bilirubin, Total 0.4 mg/dL (0.2-1.0); CREATININE 1.62 mg/dL (0.55-1.02); Calcium 8.8 mg/dL (8.5-10.1); Chloride 102 mmol/L (98-107); Estimated GFR 30.65 (mL/min/1.73m2); Glucose 180 mg/dL (74-106); NT-proBNP 1767 pg/mL (<300); Potassium 4.1 mmol/L (3.5-5.1); Sodium 140 mmol/L (136-145); Total Protein 7.6 g/dL (6.4-8.2)
[2020-03-03] MEDS: Cephalexin 500 MG CAP PO (14:52)
== END 2020-03-03 14:50 | disposition home or self-care (01) ==
PROVIDERS: Emergency Provider Student in an Organized Health Care Education/Training Program; PCP Family Medicine
DX: L03.116 Cellulitis of left lower limb (principal); E11.9 Type 2 diabetes mellitus without complications; Z79.4 Long term (current) use of insulin; I25.10 Atherosclerotic heart disease of native coronary artery without angina pectoris; N18.30 Chronic kidney disease, stage 3 unspecified; Z86.711 Personal history of pulmonary embolism; Z99.81 Dependence on supplemental oxygen
CPT/HCPCS: 36415; 80053; 93005; 99285; 83880; 85025; 93010; 93971

== ENCOUNTER 2020-04-29 21:53 | Outpatient (REF) | payer MEDICARE, MEDICAID, SELFPAY ==
[2020-04-29 22:10] LABS: Bilirubin Negative (Negative); Blood Trace-intact (Negative); Clarity Sl Cloudy (Clear); Glucose Negative (Negative); Ketones Negative (Negative); Leukocyte Esterase Moderate (Negative); Nitrite Negative (Negative); Urobilinogen 0.2 EU/dL (Up TO 0.2); pH 5.5 (5-8)
[2020-04-29 22:26] LABS: Bacteria Negative HPF (Negative); C & S Indicated? Yes; Casts Negative LPF (Negative); Crystals Negative HPF (Negative); Epithelial Cells Rare HPF (Negative); Mucus Negative (Negative); Other Cells Negative (Negative); WBC 0-2 HPF (0-5)
== END 2020-04-29 21:54 | disposition home or self-care (01) ==
LOC: LBN 21:53
PROVIDERS: PCP Family Medicine; Visit Provider Nurse Practitioner
DX: R30.0 Dysuria (principal); R35.0 Frequency of micturition
CPT/HCPCS: 87077; 81003; 81015; 87086; 87186

== ENCOUNTER 2020-07-11 15:04 | Emergency (ER) | payer MEDICARE, MEDICAID, SELFPAY ==
--- NOTE | 2020-07-11 15:07 | ED.GENADUL_ITS ---
Discharge Plan Disposition Patient Disposition: HOME Condition: Good Discharge Details Clinical Impression: Cellulitis of left leg, Skin tear of left lower leg without complication Primary Care Provider: Perry Graham ED Provider: Gurjit Conteh Home Meds and New Rx's Prescriptions: New cephalexin 500 mg capsule 500 mg PO QID 10 Days Qty: 40 RF: 0 Continued Brilinta 90 MG tablet 90 mg PO BID RF: 0 sucralfate [Carafate] 1 gram Tablet 1 g PO QID RF: 0 sertraline 100 MG tablet 200 mg PO DAILY RF: 0 levothyroxine [Synthroid] 150 MCG tablet 150 mcg PO DAILY AM RF: 0 spironolactone 25 MG tablet 25 mg PO DAILY AM RF: 0 prednisone 5 mg tablet 10 mg PO DAILY RF: 0 atorvastatin 20 mg tablet 20 mg PO HS RF: 0 ferrous sulfate 325 mg (65 mg iron) Tablet 325 mg PO DAILY RF: 0 fentanyl 12 mcg/hr Patch 72 Hour 1 patch TRANSDERMAL Q48H RF: 0 ipratropium-albuterol 0.5 mg-3 mg(2.5 mg base)/3 mL solution for nebulization 3 ml INHALATION Q4H PRN PRN (Reason: Shortness Of Breath) RF: 0 dicyclomine 20 mg Tablet 20 mg PO QID PRN PRN (Reason: Abdominal Pain) RF: 0 pramipexole 1 mg tablet 0.5 mg PO BID RF: 0 amlodipine 5 mg Tablet 5 mg PO DAILY RF: 0 omeprazole 40 mg capsule,delayed release(DR/EC) 40 mg PO BID RF: 0 nystatin [Nystop] 100,000 unit/gram powder See Rx Instructions .ROUTE .COMPLEX RF: 0 fluticasone propion-salmeterol [Advair Diskus] 100-50 mcg/dose blister with device 1 inh INHALATION BID RF: 0 Acidophilus Tablet,Chewable 1 tab PO DAILY RF: 0 levalbuterol tartrate [Xopenex HFA] 45 mcg/actuation HFA aerosol inhaler 2 puff INHALATION Q4H PRN PRN (Reason: Wheezing) RF: 0 cholecalciferol (vitamin D3) [Vitamin D3] 25 mcg (1,000 unit) tablet 1,000 unit PO DAILY RF: 0 Bystolic 10 mg tablet 10 mg PO DAILY RF: 0 lidocaine 5 % Adhesive Patch,Medicated 1 patch TOPICAL DAILY RF: 0 nitroglycerin 0.4 mg Tablet, Sublingual 0.4 mg SUBLINGUAL Q5M PRNRF: 0 gabapentin 100 mg capsule 200 mg PO TID RF: 0 loratadine 10 mg Tablet 10 mg PO DAILY RF: 0 bumetanide 1 mg tablet 2 mg PO BID RF: 0 Discharge Instructions Instructions: Cellulitis (ED), Skin Tear (ED) Additional Instructions: At this time you do have evidence of cellulitis which is a bacterial infection in your leg. Your blood work is reassuring, and you can be started on an oral antibiotic at this time. If you notice that the redness significantly spreads from the marked site or it does not improve over the next few days please return immediately for reassessment. The antibiotic Keflex has been sent to your pharmacy. We have given you a small bottle to take between now and when you get your prescription filled. Please take this as directed. Unfortunately the cut on your flower is somewhat superficial and delayed and is not amendable to suturing. Please clean the area gently and change the bandaging twice daily. Do not soak the area in water. We have consulted wound care to come and evaluate your shins and monitor it to make sure there is no worsening. Some of the skin will follow up secondary to the scrape skin nature of the injury. Normal discharge history Referrals: Perry Graham [Primary Care Provider] - Medical Decision Making 80-year-old female with a past medical history of CAD, CKD, congestive heart failure, polymyalgia rheumatica, previous pulmonary embolism, on Brilinta but not an anticoagulant, who presents today for evaluation of redness and bleeding in the left lower extremity. Patient states that sometime last night she suddenly noticed random bleeding from the left lower extremity which she described as significant. She did not recall any trauma. This morning the bleeding had stopped, she was bandaged by home health nursing, and there was noticeable redness and warmth and it was recommended that she come to the ER for further evaluation. Currently the patient does admit to mild complaint of pain in the left lower extremity, but otherwise has no other complaints. She denies fever or chills. No other complaints at this time. No other modifying factors. Physical exam demonstrates a 3 cm superficial skin tear, which appears old and not new. Suspect that it occurred between 12 and 30 hours ago. Does not appear appropriate to suture at this time. No active bleeding otherwise. There is cellulitis extending around the flower in general in conjunction with her chronic venous stasis. Cellulitis has a height of around 17 cm, and is nearly circumferential. It is still well below the knee. She is afebrile, she is not tachycardic, symptoms do not appear consistent with sepsis or systemic infection. Laboratory work-up shows no white count bandemia or left shift. No evidence of systemic or fulminant bacterial infection. Will give 2 g of IV ceftriaxone here, will get an x-ray to rule out foreign body. If this is unremarkable I do feel she would be an appropriate outpatient candidate for antibiotic therapy based on her current clinical presentation. 5:41 PM X-ray results have returned negative for acute process. Patient has a notable allergy to Tdap, and the tetanus vaccine, and is not a candidate for that after discussion of the risks and plan. The area was vigorously cleaned, and upon evaluation of the skin it does not appear amendable to suturing at this time. A nonadhesive gauze was placed on it. In the area was wrapped. Patient tolerated this well. She was given her ceftriaxone, review and reexamination of the skin shows no worsening of the cellulitis at this time. She remains afebrile and vital signs are stable. Laboratory work-up shows no elevation in white count, no suggestion of systemic infection. Patient will be given a bottle of Keflex here and a prescription for home use. Discussed the case with her son Abdiel in depth. We will consult out for home wound care. I have extensively reviewed the treatment plan and discharge instructions with the patient and their family. I have addressed all patient concerns at this time. The patient and family was made aware of what symptoms to monitor for that would warrant a return to the emergency department. Discussed the plan with the patient and family, they demonstrate verbal understanding and agreement with our assessment and plan at this time. The documentation in this chart was dictated using [employer] dictation software. Please excuse any dictation errors. FINDINGS: Bones/joints: No acute fracture. There is a left knee replacement. Soft tissues: No radiopaque foreign body is identified in the flower region. There are linear clip like densities in the posteromedial soft tissues which are favored to be postsurgical in nature. However, correlation with any concern for foreign bodies in this region suggested. Soft tissue calcifications are seen. IMPRESSION: 1. No radiopaque foreign body is identified in the flower region. 2.There are linear clip like densities in the posteromedial soft tissues which are favored to be postsurgical in nature and represent vascular clips. However, correlation with any concern for foreign bodies in this region suggested. 3. Other findings/details as above. Thank you for allowing us to participate in the care of your patient. Dictated and Authenticated by: Caroline Bourne MD [facility] General Date/Time Provider Initiated Documentation: 07/11/20 15:05 . HPI Narrative: 80-year-old female with a past medical history of CAD, CKD, congestive heart failure, polymyalgia rheumatica, previous pulmonary embolism, on Brilinta but not an anticoagulant, who presents today for evaluation of redness and bleeding in the left lower extremity. Patient states that sometime last night she suddenly noticed random bleeding from the left lower extremity which she described as significant. She did not recall any trauma. This morning the bleeding had stopped, she was bandaged by home health nursing, and there was noticeable redness and warmth and it was recommended that she come to the ER for further evaluation. Currently the patient does admit to mild complaint of pain in the left lower extremity, but otherwise has no other complaints. She denies fever or chills. No other complaints at this time. No other modifying factors. Related Data Home Medications Medication Instructions Recorded Confirmed Brilinta 90 mg PO BID 03/11/13 07/11/20 sertraline 200 mg PO DAILY 05/17/16 07/11/20 levothyroxine [Synthroid] 150 mcg PO DAILY AM 10/09/17 07/11/20 spironolactone 25 mg PO DAILY AM 10/09/17 07/11/20 sucralfate [Carafate] 1 g PO QID 03/05/18 07/11/20 Acidophilus 1 tab PO DAILY 12/03/19 03/03/20 amlodipine 5 mg PO DAILY 12/03/19 07/11/20 atorvastatin 20 mg PO HS 12/03/19 07/11/20 cholecalciferol (vitamin D3) 1,000 unit PO DAILY 12/03/19 07/11/20 [Vitamin D3] dicyclomine 20 mg PO QID PRN PRN 12/03/19 03/03/20 fentanyl 1 patch TRANSDERMAL Q48H 12/03/19 07/11/20 ferrous sulfate 325 mg PO DAILY 12/03/19 07/11/20 fluticasone propion-salmeterol 1 inh INHALATION BID 12/03/19 07/11/20 [Advair Diskus] ipratropium-albuterol 3 ml INHALATION Q4H PRN PRN 12/03/19 07/11/20 levalbuterol tartrate [Xopenex HFA] 2 puff INHALATION Q4H PRN PRN 12/03/19 03/03/20 nystatin [Nystop] See Rx Instructions .ROUTE .COMPLEX 12/03/19 07/11/20 omeprazole 40 mg PO BID 12/03/19 07/11/20 pramipexole 0.5 mg PO BID 12/03/19 07/11/20 prednisone 10 mg PO DAILY 12/03/19 07/11/20 Bystolic 10 mg PO DAILY 12/05/19 07/11/20 bumetanide 2 mg PO BID 03/03/20 07/11/20 gabapentin 200 mg PO TID 03/03/20 03/03/20 lidocaine 1 patch TOPICAL DAILY 03/03/20 03/03/20 loratadine 10 mg PO DAILY 03/03/20 07/11/20 nitroglycerin 0.4 mg SUBLINGUAL Q5M PRN 03/03/20 07/11/20 cephalexin 500 mg PO QID 10 Days #40 cap 07/11/20 Previous Rx's Medication Instructions Recorded cephalexin 500 mg PO QID 10 Days #40 cap 07/11/20 Allergies Allergy/AdvReac Type Severity Reaction Status Date / Time aspirin Allergy Severe Anaphylaxsi Unverified 12/02/19 14:18 s morphine Allergy Intermediate Skin Rash Unverified 12/02/19 14:18 NSAIDS (Non-Steroidal Allergy Intermediate Skin Rash Unverified 12/02/19 14:18 Anti-Inflamma Sulfa (Sulfonamide Allergy Intermediate Skin Rash Unverified 12/02/19 14:18 Antibiotics) Quinidine-Quinine Analogues AdvReac Intermediate high fever Unverified 12/02/19 14:18 (Cincho tetanus and diphtheria AdvReac Intermediate Swelling/Ed Unverified 12/02/19 14:18 toxoids rachel [Tetanus&Diphtheria Toxoid] NADIYA Inhibitors AdvReac Mild cough Unverified 12/02/19 14:18 General ELISE: 3 Review of Systems All systems reviewed & are unremarkable except as noted in HPI and below PFSH Medical History Acute prerenal azotemia Altered mental state Anemia Anxiety Aortic stenosis, moderate (~07/2017) Asthma Chronic hypoxemic respiratory failure and patient is on 2 liters of oxygen chronically at rest and 3 liters with exertion. Bilateral shoulder pain rotator cuff tears plus OA? CAD (coronary artery disease) CABG approximately ten years ago; recently cardiac cath with single stent placement on inferior portion of heart down at [facility]. Dr. Navarro follows patient. Cholelithiasis without cholecystitis CKD (chronic kidney disease), stage III Baseline creatine 1.1 to 1.3 Compression fracture of L1 lumbar vertebra (~07/2017) Decreased performance of ADLs Decreased range of motion bilateral shoulders Decubital ulcer Discharge planning issues Edema due to congestive heart failure Falls frequently Frailty syndrome in geriatric patient Goals of care, counseling/discussion Hernia of abdominal wall recurrent problem; LUQ Mar 2020 Hx of CABG (~2000) 2000 Hypothyroidism Lives alone with help available Low back pain LVH (left ventricular hypertrophy) Morbid obesity Obesity (BMI 30.0-34.9) Open wound of scapular region without complication Palliative care patient Peripheral vascular disease Pneumonia Polymyalgia rheumatica Pulmonary embolism PVD (peripheral vascular disease) Type 2 diabetes mellitus On insulin. Unintentional weight loss Vascular dementia mild Venous stasis dermatitis of both lower extremities Vitamin B 12 deficiency Weight gain with edema Surgical History H/O hernia repair S/P CABG x 2 Family History Daughter Diabetes Son Diabetes Obesity Mother , age 49 of breast cancer Breast cancer Father , age 68 of stroke Stroke Hypertension Sister Seizure disorder Sister , from complications of her RA Lucy not clear how Rheumatoid arthritis Brother Leukemia Brother Heart disease Social History Smoking/Tobacco Use Status: Never Second Hand Exposure: No Smoking risk assessment performed?: Yes Alcohol Intake: never Drug use: Never Substance use type: does not use Caregiver/Support person: Yes (during the day) Household members: other Details: hired young woman for 5 hrs/day, 5 days/wk; family around too Housing: house Number of Children: 2 number of grandchildren: 5 Communication Needs: Hard of Hearing and Corrective Lenses Education Level: high school Do you need help understanding health information?: Always 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, 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, 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 Pets and animals: Yes Pets and animals: cat(s) Current gender identity: female What is your relationship status?: How often do you talk on the phone with friends or family?: three or more times per week How often do you get together with friends or relatives?: three or more times per week Panel score (0-1 are the most socially isolated patients): 1 What type of physical activity do you participate in: none and sedentary li fesCombat Strokele Special toi needs: No Agree to transfusion: Yes Seatbelt use: always Working smoke detector in home: Yes Fire extinguisher in home: Yes Do you feel safe at home: Yes Do you feel safe in your relationship?: Yes Additional Social history: Lives alone in her own home since February 2018. Prior to that was living with her daughter for about a year. She was at a penitentiary in [place] prior to moving in with her daughter. NEVER wants to go to a penitentiary again. Never wants to go to [facility]. Definitely the matriarch of her family. Has help now from Sarah, who helps her with ADLs. Keeps on eye on her diet. has assistance 5 days per week now. Exam Narrative Exam Narrative: 1.Const: Well-nourished, Well-developed, appearing stated age 2.Eyes: PERRL, no conjunctival injection, and symmetrical lids. 3.ENT: Atraumatic external nose and ears. Moist MM. Neck: Symmetric, trachea midline, No thyromegaly. 4.CVS: +S1/S2, No murmurs or gallops. Peripheral pulses 2+ and equal in all extremities. Brisk capillary refill in all extremities. 5.RESP: Unlabored respiratory effort. Clear to auscultation bilaterally. No wheezes rales or rhonchi 6.GI: Soft, Nontender/Nondistended, No hepatosplenomegaly. No guarding or rebound. 7.MSK: No significant tenderness over the tibia-fibula on the left. No evidence of gross bony deformity. +1 to +2 pitting edema in the lower extremities bi laterally. 8.Skin: Patient's left anterior lateral flower demonstrates a laceration that appears superficial, it is irregular and appears like a superficial skin tear. Is around 3 cm in length. No active bleeding whatsoever. Skin appears dusky the peripheral aspect, and on evaluation of the wound now it appears that it occurred sometime ago. Definitely greater than 12 hours ago. Potentially g reater than 24 hours ago. However in addition to this there is cellulitis/warmth and redness extending around it. Total height of the redness is about 18 cm, and is nearly circumferential. This area is not overly tender. The area was demarcated with a pen. 9.Neuro: reading instructor II-XII grossly intact. Sensation grossly intact, no focal neurologic deficits. 10.Psych: (AAO) x3. Appropriate mood and affect
[2020-07-11 15:14] VITALS: BP 182/64; PULSE 57; RESP 22; TEMP 36; O2SAT 100
[2020-07-11 15:53] LABS: Abs Immature Grans 0.08 10^3/uL (0.0-0.06); Absolute Basophil Count 0.03 10^3/uL (0.0-0.2); Absolute Eosinophil Count 0.14 10^3/uL (0.0-0.7); Absolute Lymphocyte Count 0.73 10^3/uL (1.2-3.4); Absolute Monocyte Count 0.38 10^3/uL (0.1-0.8); Absolute Neutrophil Count 5.84 10^3/uL (1.2-6.7); Basophils % 0.4; Eosinophils % 1.9; HCT 30.8 % (36.0-46.0); HGB 9.5 g/dL (11.2-15.7); Immature Grans % 1.1; Lymphocytes % 10.1; MCH 27.8 pg (27.0-33.0); MCHC 30.8 % (32.0-36.0); MCV 90.1 fL (80-95); MPV 9.5 fL (8.0-11.0); Monocytes % 5.3; Neutrophils % 81.2; Nucleated RBC 0 %; Platelet Count 132 10^3/uL (130-400); RBC 3.42 10^6/uL (3.93-5.22); RDW 15.9 % (11.7-14.6); RDW-SD 52.1 fL
--- NOTE | 2020-07-11 16:00 | DI.RAD_ITS ---
Exam(s) XR TIB/FIB LT EXAM: XR TIB/FIB LT CLINICAL HISTORY: flower cut, eval for FB. TECHNIQUE: 2D digital imaging was performed. COMPARISON: CR,XR XR CHEST 2V PA LATERAL from 12/02/2019 FINDINGS: There is a left knee prosthesis. Surgical clips are noted in the medial subcutaneous soft tissues wh ich are possibly related to prior saphenous vein harvesting. There is diffuse stranding in the subcu taneous fat on both sides of the calf. No prominent swelling around the ankle. No fractures. No os seous lesions. No obvious radiographic evidence of osteomyelitis. IMPRESSION: No acute osseous findings. Diffuse cyst abnormal stranding in the subcutaneous fat involving most of the calf. Correlation with any clinical signs of infection recommended. Surgical clips noted medially which are probably related to the saphenous vein harvesting for CABG. Review of prior chest x-ray reveals sternotomy wires. DATA REPOSITORY: RADIATION DOSE DELIVERED:
[2020-07-11 16:07] LABS: ALT 30 U/L (14-59); AST 18 U/L (15-37); Albumin 3.5 g/dL (3.4-5.0); Alkaline Phosphatase 78 U/L (46-116); Anion Gap 4.9 mmol/L (3-11); BUN 42 mg/dL (7-18); Bilirubin, Total 0.4 mg/dL (0.2-1.0); CO2 33.1 mmol/L (21.0-32.0); CREATININE 1.6 mg/dL (0.55-1.02); Calcium 8.8 mg/dL (8.5-10.1); Chloride 106 mmol/L (98-107); Estimated GFR 31.01 (mL/min/1.73m2); Glucose 167 mg/dL (74-106); Potassium 3.8 mmol/L (3.5-5.1); Sodium 144 mmol/L (136-145); Total Protein 7.3 g/dL (6.4-8.2)
[2020-07-11] MEDS: cefTRIAXone 2 GM/50 ML BAG IVPB (16:15)
--- NOTE | 2020-07-11 17:17 | DI.VRAD_ITS ---
PROCEDURE INFORMATION: Exam: XR Left Tibia and Fibula Exam date and time: 07/11/2020 4:01 PM Age: 80 years old Clinical indication: Other: Flower cut, eval for fb TECHNIQUE: Imaging protocol: XR Left tibia and fibula. Views: 2 views. COMPARISON: US LOWER EXTREMITY VENOUS LT 03/03/2020 1:43 PM FINDINGS: Bones/joints: No acute fracture. There is a left knee replacement. Soft tissues: No radiopaque foreign body is identified in the flower region. There are linear clip like densities in the posteromedial soft tissues which are favored to be postsurgical in nature. However, correlation with any concern for foreign bodies in this region suggested. Soft tissue calcifications are seen. IMPRESSION: 1. No radiopaque foreign body is identified in the flower region. 2.There are linear clip like densities in the posteromedial soft tissues which are favored to be postsurgical in nature and represent vascular clips. However, correlation with any concern for foreign bodies in this region suggested. 3. Other findings/details as above. Dictated and Authenticated by: Caroline Bourne MD. Ordering:SHARON Cagle MD
[2020-07-11] MEDS: Cephalexin 500 MG CAP, 4 CAPS/BTL PO (17:45)
[2020-07-11 17:53] VITALS: BP 138/58; PULSE 55; RESP 16; TEMP 36; O2SAT 100
--- NOTE | 2020-07-11 17:59 | NUR.NOTE ---
Nursing Note: referral to cm. [facility]
== END 2020-07-11 18:00 | disposition home or self-care (01) ==
PROVIDERS: Emergency Provider Student in an Organized Health Care Education/Training Program; PCP Family Medicine
DX: S81.812A Laceration without foreign body, left lower leg, initial encounter (principal); L03.116 Cellulitis of left lower limb; X58.XXXA Exposure to other specified factors, initial encounter
CPT/HCPCS: 80053; 87040; 96374; 99284; 73590; 85025; 99283

== ENCOUNTER 2020-08-23 16:36 | Emergency (ER) | payer MEDICARE, MEDICAID, SELFPAY ==
[2020-08-23] VITALS (35 sets, daily range): BP systolic 116–191; BP diastolic 41–69; PULSE 50–60; RESP 14–31; TEMP 36.6–36.9; O2SAT 97–100
--- NOTE | 2020-08-23 16:30 | RT.EKG_ITS ---
APPROVED REPORT Exam: Resting ECG Reason for Exam: chest pain Patient Location: E HR:53 bpm ECG Measurements Heart Rate 53 AXIS MD 174 P 52 QRSd 96 QRS 30 QT 473 T 42 QTc 446 Conclusion Sinus bradycardia...rate< 60 Nonspecific repol abnormality, diffuse leads...ST dep, T flat/neg, ant/lat/inf
--- NOTE | 2020-08-23 16:45 | DI.RAD_ITS ---
Exam(s) XR CHEST 2V PA LATERAL EXAM: XR CHEST 2V PA LATERAL CLINICAL HISTORY: sob. TECHNIQUE: 2D digital imaging was performed. COMPARISON: CR,XR XR CHEST 2V PA LATERAL from 12/02/2019 FINDINGS: Mild cardiomegaly and sternotomy wires again noted. Increased markings in both lungs appears unchanged from previous. No obvious new confluent infiltrat es nor pleural effusions. No pneumothorax IMPRESSION: Mild cardiomegaly. Sternotomy. Increased pulmonary markings but unchanged from previous. If clinic ally indicated follow-up CT scan can be performed. DATA REPOSITORY: RADIATION DOSE DELIVERED:
--- NOTE | 2020-08-23 17:00 | RT.EKG_ITS ---
APPROVED REPORT Exam: Resting ECG Reason for Exam: shortness of breath Patient Location: E HR:54 bpm ECG Measurements Heart Rate 54 AXIS MN 168 P 40 QRSd 95 QRS 39 QT 482 T 43 QTc 456 Conclusion Sinus bradycardia...rate< 60 Normal Kamrar There are no significant changes compared to prior EKG performed on 08/23/2020 at 17:04.
[2020-08-23 17:21] LABS: Abs Immature Grans 0.11 10^3/uL (0.0-0.06); Absolute Basophil Count 0.03 10^3/uL (0.0-0.2); Absolute Eosinophil Count 0.04 10^3/uL (0.0-0.7); Absolute Monocyte Count 0.42 10^3/uL (0.1-0.8); Absolute Neutrophil Count 8.62 10^3/uL (1.2-6.7); Basophils % 0.3; Eosinophils % 0.4; HCT 32.6 % (36.0-46.0); Immature Grans % 1.1; MCH 27.5 pg (27.0-33.0); MCHC 30.7 % (32.0-36.0); MCV 89.6 fL (80-95); MPV 9.6 fL (8.0-11.0); Monocytes % 4.2; Nucleated RBC 0 %; Platelet Count 172 10^3/uL (130-400); RBC 3.64 10^6/uL (3.93-5.22); RDW 15.5 % (11.7-14.6); RDW-SD 50.6 fL; WBC 10.02 10^3/uL (4.4-10.8)
[2020-08-23 17:38] LABS: ALT 24 U/L (14-59); AST 16 U/L (15-37); Albumin 3.8 g/dL (3.4-5.0); Alkaline Phosphatase 101 U/L (46-116); Anion Gap 8.2 mmol/L (3-11); BUN 58 mg/dL (7-18); Bilirubin, Total 0.4 mg/dL (0.2-1.0); CO2 31.8 mmol/L (21.0-32.0); CREATININE 1.6 mg/dL (0.55-1.02); Calcium 9.3 mg/dL (8.5-10.1); Chloride 104 mmol/L (98-107); Estimated GFR 31.01 (mL/min/1.73m2); Glucose 211 mg/dL (74-106); Potassium 4.8 mmol/L (3.5-5.1); Sodium 144 mmol/L (136-145)
[2020-08-23 17:41] LABS: Magnesium 2.2 mg/dL (1.8-2.4); NT-proBNP 2562 pg/mL (<300); Troponin I < 0.05 ng/mL (<0.06)
[2020-08-23] MEDS: Bumetanide 1 MG/4 ML VIAL IVP (18:21)
--- NOTE | 2020-08-23 19:05 | NUR.NOTE ---
Addendum entered by Nilda Shaikh 08/23/20 21:09: total inc x3 Original Note: incontinent x2 Nursing Note:
--- NOTE | 2020-08-23 19:08 | DI.VRAD_ITS ---
PROCEDURE INFORMATION: Exam: XR Chest Exam date and time: 08/23/2020 5:01 PM Age: 80 years old Clinical indication: Shortness of breath; Patient HX: SOB, TECHNIQUE: Imaging protocol: XR of the chest. Views: 2 views. COMPARISON: CR XR CHEST 2V PA LATERAL 12/02/2019 3:57 PM FINDINGS: Tubes, catheters and devices: Again noted are sternal wires which appear well aligned. Lungs: There is increased mild central pulmonary vascular congestion. There are regions of mild central peribronchial thickening, increased from prior study, which may represent mild interstitial pulmonary edema. There is increased mild peribronchial airspace opacity within the bases of the lower lobes. Pleural spaces: There are no pleural effusions present. Heart/Mediastinum: There is mild enlargement of the cardiac silhouette, as on prior study. Findings suggest small hiatal hernia, as on prior study. Bones/joints: Unremarkable. IMPRESSION: 1. Findings suggest increased mild CHF with mild pulmonary edema. 2. Increased mild basilar lower lobe airspace opacities, may represent pulmonary edema versus bronchopneumonia. Recommend clinical correlation. 3. Findings suggest small hiatal hernia, as on prior study. Dictated and Authenticated by: Dirk Saucedo MD. Ordering:SANTOS Carroll MD
[2020-08-23] MEDS: nitroGLYcerin 0.4 MG TAB SL (19:44)
[2020-08-23] MEDS: cefTRIAXone 1 GM/50 ML BAG IVPB (19:45)
[2020-08-23 20:03] LABS: Bilirubin Negative (Negative); Blood Trace-intact (Negative); Clarity Clear (Clear); Glucose Negative (Negative); Ketones Negative (Negative); Leukocyte Esterase Trace (Negative); Nitrite Negative (Negative); Specific Gravity 1.015 (1.005-1.025); Urobilinogen 0.2 EU/dL (Up TO 0.2)
--- NOTE | 2020-08-23 20:14 | ED.GENADUL_ITS ---
Discharge Plan Discharge Details Chief Complaint: SOB Primary Care Provider: Perry Graham ED Provider: Carly Hernandez Home Meds and New Rx's Prescriptions: No Action Brilinta 90 MG tablet 90 mg PO BID RF: 0 sucralfate [Carafate] 1 gram Tablet 1 g PO QID RF: 0 pantoprazole [Protonix] 20 mg Tablet,Delayed Release (Dr/Ec) 20 mg PO DAILY RF: 0 sertraline 100 MG tablet 200 mg PO DAILY RF: 0 levothyroxine [Synthroid] 150 MCG tablet 150 mcg PO DAILY AM RF: 0 spironolactone 25 MG tablet 25 mg PO DAILY AM RF: 0 prednisone 5 mg tablet 10 mg PO DAILY RF: 0 atorvastatin 20 mg tablet 20 mg PO HS RF: 0 ferrous sulfate 325 mg (65 mg iron) Tablet 325 mg PO DAILY RF: 0 fentanyl 12 mcg/hr Patch 72 Hour 1 patch TRANSDERMAL Q48H RF: 0 ipratropium-albuterol 0.5 mg-3 mg(2.5 mg base)/3 mL solution for nebulization 3 ml INHALATION Q4H PRN PRN (Reason: Shortness Of Breath) RF: 0 dicyclomine 20 mg Tablet 20 mg PO QID PRN PRN (Reason: Abdominal Pain) RF: 0 pramipexole 1 mg tablet 0.5 mg PO BID RF: 0 amlodipine 5 mg Tablet 5 mg PO DAILY RF: 0 omeprazole 40 mg capsule,delayed release(DR/EC) 40 mg PO BID RF: 0 nystatin [Nystop] 100,000 unit/gram powder See Rx Instructions .ROUTE .COMPLEX RF: 0 fluticasone propion-salmeterol [Advair Diskus] 100-50 mcg/dose blister with device 1 inh INHALATION BID RF: 0 Acidophilus Tablet,Chewable 1 tab PO DAILY RF: 0 levalbuterol tartrate [Xopenex HFA] 45 mcg/actuation HFA aerosol inhaler 2 puff INHALATION Q4H PRN PRN (Reason: Wheezing) RF: 0 cholecalciferol (vitamin D3) [Vitamin D3] 25 mcg (1,000 unit) tablet 1,000 unit PO DAILY RF: 0 Bystolic 10 mg tablet 10 mg PO DAILY RF: 0 nitroglycerin 0.4 mg Tablet, Sublingual 0.4 mg SUBLINGUAL Q5M PRNRF: 0 gabapentin 100 mg capsule 200 mg PO TID RF: 0 loratadine 10 mg Tablet 10 mg PO DAILY RF: 0 bumetanide 1 mg tablet 2 mg PO BID RF: 0 Discharge Data Discharge Date/Time-TO BE ENTERED AT DEPARTURE: 08/23/20 21:07 Medical Decision Making Patient appears volume overloaded, she has evidence of mild pulmonary edema on her chest x-ray and a BNP of [address] changes inferiorly and laterally, she will need admission secondary to orthopnea, dyspnea for medical management Unfortunately secondary to capacity we are unable to admit the patient to our hospital at this time and [facility] has agreed to admit patient as she is a cardiac patient with their facility, she has been accepted by Dr. Villanueva, cardiology She is received 1 mg of IV Bumex, she received 1 sublingual nitro but this did drop her pressure from 1 60-112/40 and so no additional nitro will be ordered at this time pain free at time of reevaluation She is alert and oriented, of decisional capacity, she is a DNR/DNI. agreeable to transfer at this time initially EKG with inferior later st changes when compared to prior, however on repeat ekg this ischemia has resolves did consider pe, however overt evidence of CHF without hypoxia on chronic oxygen therapy Differential Diagnosis Differential Diagnosis: PE, CHF, angina, MS Medical Records Medical records reviewed: Yes I reviewed the patient's medical records. Lab Data Lab results reviewed: Yes I reviewed the patient's lab results. ECG Data Prior ECG tracings: available for review HPI General Mode of arrival: ambulatory . Date/Time Provider Initiated Documentation: 08/23/20 16:49 . Limitations to Documentation: no limitations . Information obtained by: patient . HPI Narrative: . 80-year-old female with history of CHF, lymphedema, CKD, coronary artery disease, CABG, aortic stenosis presents with report of shortness of breath, dyspnea with exertion, and chest pressure. She states her symptoms have been worsening over the course of the past 2 weeks, but specifically over the past 3 days she has become quite dyspneic. She denies significant weight gain. She does report that she has a history of cellulitis and that her left leg is worsened. She denies any fever or chills. She denies any nausea or vomiting. She did take antibiotics for wound on her leg with cellulitis 6 weeks ago but has not been on antibiotics since that time. She has not anticoagulated at this time reportedly. She does take Brilinta for her cardiac history. She had a stent placed reportedly at [facility] approximately 5 years ago and status post CABG. She states the chest pressure has been constant for the past several days. She states that it is not worsened with exertion. She denies any urinary symptoms. She is been taking all of her medications including her diuretics as prescribed reportedly. She does a history of PE. She states that this feels more like her CHF. Denies changes diet. Related Data Home Medications Medication Instructions Recorded Confirmed Brilinta 90 mg PO BID 03/11/13 08/23/20 sertraline 200 mg PO DAILY 05/17/16 08/23/20 levothyroxine [Synthroid] 150 mcg PO DAILY AM 10/09/17 08/23/20 spironolactone 25 mg PO DAILY AM 10/09/17 08/23/20 sucralfate [Carafate] 1 g PO QID 03/05/18 08/23/20 Acidophilus 1 tab PO DAILY 12/03/19 08/23/20 amlodipine 5 mg PO DAILY 12/03/19 08/23/20 atorvastatin 20 mg PO HS 12/03/19 08/23/20 cholecalciferol (vitamin D3) 1,000 unit PO DAILY 12/03/19 08/23/20 [Vitamin D3] dicyclomine 20 mg PO QID PRN PRN 12/03/19 08/23/20 fentanyl 1 patch TRANSDERMAL Q48H 12/03/19 08/23/20 ferrous sulfate 325 mg PO DAILY 12/03/19 08/23/20 fluticasone propion-salmeterol 1 inh INHALATION BID 12/03/19 08/23/20 [Advair Diskus] ipratropium-albuterol 3 ml INHALATION Q4H PRN PRN 12/03/19 08/23/20 levalbuterol tartrate [Xopenex HFA] 2 puff INHALATION Q4H PRN PRN 12/03/19 08/23/20 nystatin [Nystop] See Rx Instructions .ROUTE .COMPLEX 12/03/19 08/23/20 omeprazole 40 mg PO BID 12/03/19 08/23/20 pramipexole 0.5 mg PO BID 12/03/19 08/23/20 prednisone 10 mg PO DAILY 12/03/19 08/23/20 Bystolic 10 mg PO DAILY 12/05/19 08/23/20 bumetanide 2 mg PO BID 03/03/20 08/23/20 gabapentin 200 mg PO TID 03/03/20 07/24/20 loratadine 10 mg PO DAILY 03/03/20 08/23/20 nitroglycerin 0.4 mg SUBLINGUAL Q5M PRN 03/03/20 08/23/20 pantoprazole [Protonix] 20 mg PO DAILY 08/23/20 08/23/20 Allergies Allergy/AdvReac Type Severity Reaction Status Date / Time aspirin Allergy Severe Anaphylaxsi Unverified 08/23/20 18:03 s morphine Allergy Intermediate Skin Rash Unverified 08/23/20 18:03 NSAIDS (Non-Steroidal Allergy Intermediate Skin Rash Unverified 08/23/20 18:03 Anti-Inflamma Sulfa (Sulfonamide Allergy Intermediate Skin Rash Unverified 08/23/20 18:03 Antibiotics) Quinidine-Quinine Analogues AdvReac Intermediate high fever Unverified 08/23/20 18:03 (Cincho tetanus and diphtheria AdvReac Intermediate Swelling/Ed Unverified 08/23/20 18:03 toxoids rachel [Tetanus&Diphtheria Toxoid] NADIYA Inhibitors AdvReac Mild cough Unverified 08/23/20 18:03 General Stated Complaint: SOB ELISE: 2 Review of Systems Narrative: Review of systems obtained x7 aside from where indicated in HPI [facility] Medical History (Updated 07/24/20 @ 09:23 by Demetria Smith MD) Acute prerenal azotemia Altered mental state Anemia Anxiety Aortic stenosis, moderate (~07/2017) Asthma Chronic hypoxemic respiratory failure and patient is on 2 liters of oxygen chronically at rest and 3 liters with exertion. Bilateral shoulder pain rotator cuff tears plus OA? CAD (coronary artery disease) CABG approximately ten years ago; recently cardiac cath with single stent placement on inferior portion of heart down at [facility]. Dr. Navarro follows patient. Cholelithiasis without cholecystitis Chronic GERD CKD (chronic kidney disease), stage III Baseline creatine 1.1 to 1.3 Compression fracture of L1 lumbar vertebra (~07/2017) Decreased performance of ADLs Decreased range of motion bilateral shoulders Decubital ulcer Discharge planning issues Edema due to congestive heart failure Falls frequently Frailty syndrome in geriatric patient Goals of care, counseling/discussion Hernia of abdominal wall recurrent problem; LUQ Mar 2020 Hx of CABG (~2000) 2000 Hypothyroidism Lives alone with help available has [employer] from 8 am to 1 pm daughter lives near by Low back pain LVH (left ventricular hypertrophy) Morbid obesity Obesity (BMI 30.0-34.9) Open wound of scapular region without complication Palliative care patient Peripheral vascular disease Pneumonia Polymyalgia rheumatica Pulmonary embolism PVD (peripheral vascular disease) Type 2 diabetes mellitus On insulin. Unintentional weight loss Vascular dementia mild Venous stasis dermatitis of both lower extremities Vitamin B 12 deficiency Weight gain with edema Surgical History H/O hernia repair S/P CABG x 2 Family History (Updated 07/24/20 @ 09:08 by Demetria Smith MD) Daughter Diabetes Son Diabetes Obesity Mother , age 49 of breast cancer Breast cancer Father , age 68 of stroke Stroke Hypertension Sister Seizure disorder Sister , from complications of her RA, Lucy not clear how Rheumatoid arthritis Brother Leukemia Brother Heart disease Sister Dementia Social History Smoking/Tobacco Use Status: Never Second Hand Exposure: No Smoking risk assessment performed?: Yes Alcohol Intake: never Drug use: Never Substance use type: does not use Caregiver/Support person: Yes (during the day) Household members: other Details: hired young woman for 5 hrs/day, 5 days/wk; family around too Housing: house Number of Children: 2 number of grandchildren: 5 Communication Needs: Hard of Hearing and Corrective Lenses Education Level: high school Do you need help understanding health information?: Always 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, 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, 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 Pets and animals: Yes Pets and animals: cat(s) Current gender identity: female What is your relationship status?: How often do you talk on the phone with friends or family?: three or more times per week How often do you get together with friends or relatives?: three or more times per week Panel score (0-1 are the most socially isolated patients): 1 What type of physical activity do you participate in: none and sedentary lifestyle Special toi needs: No Agree to transfusion: Yes Seatbelt use: always Working smoke detector in home: Yes Fire extinguisher in home: Yes Do you feel safe at home: Yes Do you feel safe in your relationship?: Yes Additional Social history: Lives alone in her own home since February 2018. Prior to that was living with her daughter for about a year. She was at a long term in [place] prior to moving in with her daughter. NEVER wants to go to a long term again. Never wants to go to [facility]. Definitely the matriarch of her family. Has help now from Sarah, who helps her with ADLs. Keeps on eye on her diet. has assistance 5 days per week now. Exam Const General: cooperative and ill appearing Neck Neck: JVD Resp Other: Tachypnea, mild crackles Cardio Rate: bradycardic Heart Sounds: murmur GI Other: Erythema noted to her left lower extremity, wound noted on lateral distal leg, dopplerable pulse was obtained to bilateral lower extremities No crepitus, mild tenderness Skin General skin exam: no rashes or lesions noted Neuro General: patient alert and patient oriented x3 Course Vital Signs Vital signs: Vital Signs Temperature 36.9 C 08/23/20 16:50 Pulse 55 L 08/23/20 16:50 Respiratory Rate 18 08/23/20 16:50 Blood Pressure 169/45 H 08/23/20 16:50 Pulse Oximetry 97 08/23/20 16:50 Temperature 36.9 C 08/23/20 16:50 Temperature Source Skin 08/23/20 16:50 Pulse 55 L 08/23/20 16:50 Respiratory Rate 28 H 08/23/20 17:55 Respiratory Effort 08/23/20 18:00 Blood Pressure 169/45 H 08/23/20 16:50 Blood Pressure Position Sitting 08/23/20 16:50 Pulse Oximetry 100 08/23/20 17:40 Oxygen Delivery Method Nasal Cannula 08/23/20 17:40 Oxygen Flow Rate 2 08/23/20 17:40 Pain Level 8 08/23/20 16:50 Comment 08/23/20 16:50 Lab/Test Results Lab/Test Results: Laboratory Tests Range/Units 08/23/20 08/23/20 08/23/20 17:15 17:15 17:15 WBC (4.4-10.8) 10^3/uL 10.02 RBC (3.93-5.22) 10^6/uL 3.64 L Hgb (11.2-15.7) g/dL 10.0 L Hct (36.0-46.0) % 32.6 L MCV (80-95) fL 89.6 MCH (27.0-33.0) pg 27.5 MCHC (32.0-36.0) % 30.7 L RDW (11.7-14.6) % 15.5 H Plt Count (130-400) 10^3/uL 172 MPV (8.0-11.0) fL 9.6 Immature Gran % 1.1 Neutrophils % 86.0 Lymphocytes % 8.0 Monocytes % 4.2 Eosinophils % 0.4 Basophils % 0.3 Nucleated RBC % % 0 Absolute Neutrophils (1.2-6.7) 10^3/uL 8.62 H Absolute Lymphocytes (1.2-3.4) 10^3/uL 0.80 L Absolute Monocytes (0.1-0.8) 10^3/uL 0.42 Absolute Eosinophils (0.0-0.7) 10^3/uL 0.04 Absolute Basophils (0.0-0.2) 10^3/uL 0.03 Sodium (136-145) mmol/L 144 Potassium (3.5-5.1) mmol/L 4.8 Chloride (98-107) mmol/L 104 Carbon Dioxide (21.0-32.0) mmol/L 31.8 Anion Gap (3-11) mmol/L 8.2 BUN (7-18) mg/dL 58 H Creatinine (0.55-1.02) mg/dL 1.6 H Estimated GFR/1.73 m2 (mL/min/1.73m2) 31.01 Glucose (74-106) mg/dL 211 H Calcium (8.5-10.1) mg/dL 9.3 Magnesium (1.8-2.4) mg/dL 2.2 Total Bilirubin (0.2-1.0) mg/dL 0.4 AST (15-37) U/L 16 ALT (14-59) U/L 24 Alkaline Phosphatase (46-116) U/L 101 Troponin I (<0.06) ng/mL < 0.05 NT-Pro-B Natriuret Pep (<300) pg/mL 2562 H Total Protein (6.4-8.2) g/dL 8.0 Albumin (3.4-5.0) g/dL 3.8 Urine Color (Yellow) Urine Clarity (Clear) Urine pH (5-8) Ur Specific Jasper (1.005-1.025) Urine Protein (Negative) mg/dL Urine Ketones (Negative) mg/dL Urine Blood (Negative) Urine Nitrite (Negative) Urine Bilirubin (Negative) Urine Urobilinogen (Up TO 0.2) EU/dL Ur Leukocyte Esterase (Negative) Urine Glucose (Negative) mg/dL Range/Units 08/23/20 19:35 WBC (4.4-10.8) 10^3/uL RBC (3.93-5.22) 10^6/uL Hgb (11.2-15.7) g/dL Hct (36.0-46.0) % MCV (80-95) fL MCH (27.0-33.0) pg MCHC (32.0-36.0) % RDW (11.7-14.6) % Plt Count (130-400) 10^3/uL MPV (8.0-11.0) fL Immature Gran % Neutrophils % Lymphocytes % Monocytes % Eosinophils % Basophils % Nucleated RBC % % Absolute Neutrophils (1.2-6.7) 10^3/uL Absolute Lymphocytes (1.2-3.4) 10^3/uL Absolute Monocytes (0.1-0.8) 10^3/uL Absolute Eosinophils (0.0-0.7) 10^3/uL Absolute Basophils (0.0-0.2) 10^3/uL Sodium (136-145) mmol/L Potassium (3.5-5.1) mmol/L Chloride (98-107) mmol/L Carbon Dioxide (21.0-32.0) mmol/L Anion Gap (3-11) mmol/L BUN (7-18) mg/dL Creatinine (0.55-1.02) mg/dL Estimated GFR/1.73 m2 (mL/min/1.73m2) Glucose (74-106) mg/dL Calcium (8.5-10.1) mg/dL Magnesium (1.8-2.4) mg/dL Total Bilirubin (0.2-1.0) mg/dL AST (15-37) U/L ALT (14-59) U/L Alkaline Phosphatase (46-116) U/L Troponin I (<0.06) ng/mL NT-Pro-B Natriuret Pep (<300) pg/mL Total Protein (6.4-8.2) g/dL Albumin (3.4-5.0) g/dL Urine Color (Yellow) Yellow Urine Clarity (Clear) Clear Urine pH (5-8) 6.0 Ur Specific Jasper (1.005-1.025) 1.015 Urine Protein (Negative) mg/dL Negative Urine Ketones (Negative) mg/dL Negative Urine Blood (Negative) Trace-intact H Urine Nitrite (Negative) Negative Urine Bilirubin (Negative) Negative Urine Urobilinogen (Up TO 0.2) EU/dL 0.2 Ur Leukocyte Esterase (Negative) Trace H Urine Glucose (Negative) mg/dL Negative
[2020-08-23 20:29] LABS: Bacteria Many HPF (Negative); C & S Indicated? Yes; Crystals Negative HPF (Negative); Epithelial Cells Rare HPF (Negative); Mucus Negative (Negative); RBC Negative HPF (0-2)
--- NOTE | 2020-08-23 20:36 | NUR.NOTE ---
medications reviewed with daughter over the phone Nursing Note:
[2020-08-23 20:47] LABS: Troponin I < 0.05 ng/mL (<0.06)
== END 2020-08-23 21:07 ==
PROVIDERS: Emergency Provider Physician Assistant; PCP Family Medicine
DX: I50.33 Acute on chronic diastolic (congestive) heart failure (principal)
CPT/HCPCS: 36415; 80053; 87077; 93005; 96365; 96375; 99285; 71046; 81003; 81015; 83735; 83880; 84484; 85025; 87086; 87186; 93010; 99284; J0696

== ENCOUNTER 2020-09-08 14:54 | Outpatient (REF) | payer MEDICARE, MEDICAID, SELFPAY ==
[2020-09-08 18:17] LABS: Bilirubin Negative (Negative); Blood Trace-intact (Negative); Clarity Sl Cloudy (Clear); Glucose Negative (Negative); Ketones Negative (Negative); Leukocyte Esterase Large (Negative); Nitrite Negative (Negative); Urobilinogen 0.2 EU/dL (Up TO 0.2); pH 5.5 (5-8)
[2020-09-08 18:23] LABS: WBC >50 HPF (0-5)
[2020-09-08 18:24] LABS: Bacteria Many HPF (Negative); C & S Indicated? Yes
== END 2020-09-08 14:55 | disposition home or self-care (01) ==
LOC: LBN 14:54
PROVIDERS: PCP Family Medicine; Visit Provider Family Medicine
DX: N39.0 Urinary tract infection, site not specified (principal)
CPT/HCPCS: 87077; 81003; 81015; 87086; 87186

== ENCOUNTER 2020-09-09 08:45 | Outpatient (REF) | payer MEDICARE, MEDICAID, SELFPAY ==
[2020-09-09 22:22] LABS: Calcium 9.2 mg/dL (8.5-10.1); Chloride 100 mmol/L (98-107); Estimated GFR 23.97 (mL/min/1.73m2); Glucose 185 mg/dL (74-106); Potassium 3.3 mmol/L (3.5-5.1); Sodium 142 mmol/L (136-145)
[2020-09-09 22:39] LABS: BUN 96 mg/dL (7-18)
== END 2020-09-09 08:46 | disposition home or self-care (01) ==
LOC: LBN 08:45
PROVIDERS: PCP Family Medicine; Visit Provider Family Medicine
DX: N18.30 Chronic kidney disease, stage 3 unspecified (principal); C85.93 Non-Hodgkin lymphoma, unspecified, intra-abdominal lymph nodes; I50.33 Acute on chronic diastolic (congestive) heart failure; E11.59 Type 2 diabetes mellitus with other circulatory complications; I50.9 Heart failure, unspecified
CPT/HCPCS: 80048

== ENCOUNTER 2020-09-25 18:41 | Outpatient (REF) | payer MEDICARE, MEDICAID, SELFPAY ==
[2020-09-25 20:05] LABS: Bilirubin Negative (Negative); Blood Negative (Negative); Clarity Clear (Clear); Glucose Negative (Negative); Ketones Negative (Negative); Leukocyte Esterase Negative (Negative); Nitrite Negative (Negative); Specific Gravity 1.015 (1.005-1.025); Urobilinogen 0.2 EU/dL (Up TO 0.2); pH 6.5 (5-8)
[2020-09-25 20:12] LABS: Bacteria Few HPF (Negative); C & S Indicated? C&S Done As Ordered; Casts Negative LPF (Negative); Crystals Negative HPF (Negative); Epithelial Cells Few HPF (Negative); Mucus Negative (Negative); RBC 0-2 HPF (0-2)
== END 2020-09-25 18:42 | disposition home or self-care (01) ==
LOC: LBN 18:41
PROVIDERS: PCP Family Medicine; Visit Provider Family Medicine
DX: N18.30 Chronic kidney disease, stage 3 unspecified (principal); R82.998 Other abnormal findings in urine
CPT/HCPCS: 81003; 81015; 87086

== ENCOUNTER 2020-11-22 04:44 | Emergency (ER) | payer MEDICARE, MEDICAID, SELFPAY ==
[2020-11-22] VITALS (8 sets, daily range): BP systolic 129–138; BP diastolic 31–57; PULSE 56–69; RESP 18–23; TEMP 36.3; O2SAT 98–100
--- NOTE | 2020-11-22 04:45 | DI.CT_ITS ---
Exam(s) CT HEAD CERVICAL SPINE WO EXAM: CT HEAD CERVICAL SPINE WO COMPARISON: CT CT HEAD CERVICAL SPINE WO from 05/10/2019 FINDINGS: CT examination of the cervical spine was performed without contrast administration. There are marked degenerative changes of the cervical spine. There is no evidence of acute cervical spine fracture or dislocation. Intervertebral disc spaces are well maintained. Tracheolaryngeal structures appear intact. No cervical mass or adenopathy. Noncontrast cranial CT was performed. There is moderate generalized cerebral atrophy. 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 No evidence of acute intracranial hemorrhage, mass effect, or midline shift. No calvarial fracture. The orbital and temporal bone structures appear intact. Visualized mastoid air cells and paranasal sinuses appear clear. IMPRESSION: No evidence of acute cervical spine injury. No evidence of acute intracranial injury. RADIATION DOSE DELIVERED: 1,529.4mGy.cm Total DLP 1,529.4mGy.cm Total DLP CTDIvol DATA REPOSITORY: All CT scans at this facility are submitted to the National Radiology Data Registry (NRDR) Dose Index Registry (DIR) with the [employer] (A[employer]). RADIATION OPTIMIZATION: All CT scans at this facility use at least one of these dose optimization te chniques: automated exposure control; mA and/or kV adjustment per patient size (includes targeted exa ms where dose is matched to clinical indication); or iterative reconstruction.
--- NOTE | 2020-11-22 04:46 | ED.GENADUL_ITS ---
Discharge Plan Disposition Patient Disposition: HOME Condition: Stable Discharge Details Clinical Impression: Head contusion, Fall Primary Care Provider: Perry Graham ED Provider: Bebeto Manzano [facility] and Keith Rx's Prescriptions: Continued Brilinta 90 MG tablet 90 mg PO BID RF: 0 sucralfate [Carafate] 1 gram Tablet 1 g PO QID RF: 0 sertraline 100 MG tablet 200 mg PO DAILY RF: 0 levothyroxine [Synthroid] 150 MCG tablet 150 mcg PO DAILY AM RF: 0 spironolactone 25 MG tablet 25 mg PO DAILY AM RF: 0 prednisone 5 mg tablet 10 mg PO DAILY RF: 0 atorvastatin 20 mg tablet 20 mg PO HS RF: 0 ferrous sulfate 325 mg (65 mg iron) Tablet 325 mg PO DAILY RF: 0 fentanyl 12 mcg/hr Patch 72 Hour 1 patch TRANSDERMAL Q48H RF: 0 ipratropium-albuterol 0.5 mg-3 mg(2.5 mg base)/3 mL solution for nebulization 3 ml INHALATION Q4H PRN PRN (Reason: Shortness Of Breath) RF: 0 dicyclomine 20 mg Tablet 20 mg PO QID PRN PRN (Reason: Abdominal Pain) RF: 0 pramipexole 1 mg tablet 0.5 mg PO BID RF: 0 amlodipine 5 mg Tablet 5 mg PO DAILY RF: 0 omeprazole 40 mg capsule,delayed release(DR/EC) 40 mg PO BID RF: 0 fluticasone propion-salmeterol [Advair Diskus] 100-50 mcg/dose blister with device 1 inh INHALATION BID RF: 0 Acidophilus Tablet,Chewable 1 tab PO DAILY RF: 0 levalbuterol tartrate [Xopenex HFA] 45 mcg/actuation HFA aerosol inhaler 2 puff INHALATION Q4H PRN PRN (Reason: Wheezing) RF: 0 cholecalciferol (vitamin D3) [Vitamin D3] 25 mcg (1,000 unit) tablet 1,000 unit PO DAILY RF: 0 Bystolic 10 mg tablet 10 mg PO DAILY RF: 0 nitroglycerin 0.4 mg Tablet, Sublingual 0.4 mg SUBLINGUAL Q5M PRNRF: 0 gabapentin 100 mg capsule 200 mg PO TID RF: 0 loratadine 10 mg Tablet 10 mg PO DAILY RF: 0 bumetanide 1 mg tablet 2 mg PO BID RF: 0 metoprolol succinate 100 mg Tablet Extended Release 24 Hr 100 mg PO DAILY RF: 0 Discharge Instructions Instructions: Head Injury (ED) Additional Instructions: CT scan shows no traumatic injury to the head or neck. Resume previous medical care. Follow-up with primary care as needed. Return to ED for worsening headache, neurologic change, vomiting, other concerns. Medical Decision Making Patient presenting status post fall at home striking her head against the wall. She is on Brilinta. She has mild headache but no neurologic change, nausea, vomiting. Multiple chronic medical issues as well as chronic pain none of which significantly changed per the patient. Will obtain CT head and cervical spine. Patient otherwise has no evidence of extremity injury, hip injury, and no further imaging with laboratory testing at this time. CT scan of head and cervical spine negative for acute traumatic injury. Patient with no new complaints. Patient safe for discharge home at this time. Resume previous medical care. Follow-up with primary care as needed. Return to ED for worsening headache, neurologic change, or other concerns. HPI General Mode of arrival: EMS . Date/Time Provider Initiated Documentation: 11/22/20 04:46 . Limitations to Documentation: no limitations . Information obtained by: patient, RN notes reviewed and old records reviewed . HPI Narrative: Patient brought to ER by ambulance after a fall at home resulting in a head strike against the wall. Patient had turned around in the bathroom to turn on the light. She lost her balance falling over backwards. She did not have any loss of consciousness. She has significant chronic medical problems and pain. She does not have any more pain than what she typically has except for where she struck her head. She has normal mental status and no complaints of focal weakness or numbness. She denies CP or SOB. There is no change in her breathing, redness to her legs, edema to her legs. She was concerned about her head and reports being on a blood thinner Brilinta. Related Data Home Medications Medication Instructions Recorded Confirmed Brilinta 90 mg PO BID 03/11/13 11/22/20 sertraline 200 mg PO DAILY 05/17/16 11/22/20 levothyroxine [Synthroid] 150 mcg PO DAILY AM 10/09/17 11/22/20 spironolactone 25 mg PO DAILY AM 10/09/17 11/22/20 sucralfate [Carafate] 1 g PO QID 03/05/18 11/22/20 Acidophilus 1 tab PO DAILY 12/03/19 11/22/20 amlodipine 5 mg PO DAILY 12/03/19 11/22/20 atorvastatin 20 mg PO HS 12/03/19 11/22/20 cholecalciferol (vitamin D3) 1,000 unit PO DAILY 12/03/19 11/22/20 [Vitamin D3] dicyclomine 20 mg PO QID PRN PRN 12/03/19 08/23/20 fentanyl 1 patch TRANSDERMAL Q48H 12/03/19 11/22/20 ferrous sulfate 325 mg PO DAILY 12/03/19 11/22/20 fluticasone propion-salmeterol 1 inh INHALATION BID 12/03/19 08/23/20 [Advair Diskus] ipratropium-albuterol 3 ml INHALATION Q4H PRN PRN 12/03/19 11/22/20 levalbuterol tartrate [Xopenex HFA] 2 puff INHALATION Q4H PRN PRN 12/03/19 11/22/20 omeprazole 40 mg PO BID 12/03/19 11/22/20 pramipexole 0.5 mg PO BID 12/03/19 11/22/20 prednisone 10 mg PO DAILY 12/03/19 11/22/20 Bystolic 10 mg PO DAILY 12/05/19 08/23/20 bumetanide 2 mg PO BID 03/03/20 11/22/20 gabapentin 200 mg PO TID 03/03/20 07/24/20 loratadine 10 mg PO DAILY 03/03/20 11/22/20 nitroglycerin 0.4 mg SUBLINGUAL Q5M PRN 03/03/20 11/22/20 metoprolol succinate 100 mg PO DAILY 11/22/20 11/22/20 Allergies Allergy/AdvReac Type Severity Reaction Status Date / Time aspirin Allergy Severe Anaphylaxsi Unverified 11/22/20 04:53 s morphine Allergy Intermediate Skin Rash Unverified 11/22/20 04:53 NSAIDS (Non-Steroidal Allergy Intermediate Skin Rash Unverified 11/22/20 04:53 Anti-Inflamma Sulfa (Sulfonamide Allergy Intermediate Skin Rash Unverified 11/22/20 04:53 Antibiotics) Quinidine-Quinine Analogues AdvReac Intermediate high fever Unverified 11/22/20 04:53 (Cincho tetanus and diphtheria AdvReac Intermediate Swelling/Ed Unverified 11/22/20 04:53 toxoids rachel [Tetanus&Diphtheria Toxoid] NADIYA Inhibitors AdvReac Mild cough Unverified 11/22/20 04:53 General ELISE: 2 Review of Systems Narrative: As documented in HPI otherwise negative as below. Const: no fever, chills Resp: no cough, SOB, pleuritic pain CV: no CP, diaphoresis, syncope GI: no nausea, vomiting, diarrhea Neuro: no numbness, focal weakness, confusion [facility] Medical History Acute prerenal azotemia Altered mental state Anemia Anxiety Aortic stenosis, moderate (~07/2017) Asthma Chronic hypoxemic respiratory failure and patient is on 2 liters of oxygen chronically at rest and 3 liters with exertion. Bilateral shoulder pain rotator cuff tears plus OA? CAD (coronary artery disease) CABG approximately ten years ago; recently cardiac cath with single stent placement on inferior portion of heart down at [facility]. Dr. Navarro follows patient. Cholelithiasis without cholecystitis Chronic GERD CKD (chronic kidney disease), stage III Baseline creatine 1.1 to 1.3 Compression fracture of L1 lumbar vertebra (~07/2017) Decreased performance of ADLs Decreased range of motion bilateral shoulders Decubital ulcer Discharge planning issues Edema due to congestive heart failure Falls frequently Frailty syndrome in geriatric patient Goals of care, counseling/discussion Hernia of abdominal wall recurrent problem; LUQ Mar 2020 Hx of CABG (~2000) 2000 Hypothyroidism Lives alone with help available has [employer] from 8 am to 1 pm daughter lives near by Low back pain LVH (left ventricular hypertrophy) Morbid obesity Obesity (BMI 30.0-34.9) Open wound of scapular region without complication Palliative care patient Peripheral vascular disease Pneumonia Polymyalgia rheumatica Pulmonary embolism PVD (peripheral vascular disease) Type 2 diabetes mellitus On insulin. Unintentional weight loss Vascular dementia mild Venous stasis dermatitis of both lower extremities Vitamin B 12 deficiency Weight gain with edema Surgical History H/O hernia repair S/P CABG x 2 Family History (Updated 07/24/20 @ 09:08 by Demetria Smith MD) Daughter Diabetes Son Diabetes Obesity Mother , age 49 of breast cancer Breast cancer Father , age 68 of stroke Stroke Hypertension Sister Seizure disorder Sister , from complications of her RA, Lucy not clear how Rheumatoid arthritis Brother Leukemia Brother Heart disease Sister Dementia Social History Smoking/Tobacco Use Status: Never Second Hand Exposure: No Smoking risk assessment performed?: Yes Alcohol Intake: never Drug use: Never Substance use type: does not use Caregiver/Support person: Yes (during the day) Household members: other Details: hired young woman for 5 hrs/day, 5 days/wk; family around too Housing: house Number of Children: 2 number of grandchildren: 5 Communication Needs: Hard of Hearing and Corrective Lenses Education Level: high school Do you need help understanding health information?: Always 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, 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, 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 Pets and animals: Yes Pets and animals: cat(s) Current gender identity: female What is your relationship status?: How often do you talk on the phone with friends or family?: three or more times per week How often do you get together with friends or relatives?: three or more times per week Panel score (0-1 are the most socially isolated patients): 1 What type of physical activity do you participate in: none and sedentary lifestyle Special toi needs: No Agree to transfusion: Yes Seatbelt use: always Working smoke detector in home: Yes Fire extinguisher in home: Yes Do you feel safe at home: Yes Do you feel safe in your relationship?: Yes Additional Social history: Lives alone in her own home since February 2018. Prior to that was living with her daughter for about a year. She was at a skilled nursing in [place] prior to moving in with her daughter. NEVER wants to go to a skilled nursing again. Never wants to go to [facility]. Definitely the matriarch of her family. Has help now from Sarah, who helps her with ADLs. Keeps on eye on her diet. has assistance 5 days per week now. Exam Narrative Exam Narrative: Const: Obese elderly female in NAD. HEENT: NC/AT. Normal facial exam. Neck: Supple. Trachea midline. No posterior midline tenderness. Lungs: Baseline work of breathing. Scattered rhonchi. Cor: RRR with loud murmur. GI: Soft. NT/ND. Neuro: A+O x 3. Normal speech, mentation. Cranial nerves II - XII grossly intact. No gross motor or sensory deficit. Ext: No C/C. BLE edema present and chronic. No deformity or tenderness. Skin: Warm and dry with chronic BLE erythema/stasis changes.
--- NOTE | 2020-11-22 06:08 | DI.VRAD_ITS ---
PROCEDURE INFORMATION: Exam: CT Head Without Contrast Exam date and time: 11/22/2020 4:56 AM Age: 80 years old Clinical indication: Injury or trauma; Blunt trauma (contusions or hematomas); Consciousness not specified; Patient HX: Trauma/fall; Per PT: Fell backwards and landed on head TECHNIQUE: Imaging protocol: Computed tomography of the head without contrast. COMPARISON: CT HEAD CERVICAL SPINE WO 05/10/2019 7:13 PM FINDINGS: Brain: There are mild confluent periventricular hypodensities consistent with chronic microischemic changes of white matter. There is a chronic lacunar infarct of the left gangliocapsular region that was not present on the comparison examination. There is no evidence of acute intracranial hemorrhage or mass effect on the ventricular system. There are no extra-axial fluid collections or midline shift. The posterior fossa shows mild cerebellar atrophy. Cerebral ventricles: There are prominent sulci and mild ventriculomegaly. Paranasal sinuses: There are no air-fluid levels. Mastoid air cells: The visualized mastoid air cells are well aerated. Bones/joints: There is nasal septal deviation to the right of 8.5 mm including a right lateral septal spur. There is hyperostosis frontalis interna. Soft tissues: Unremarkable. IMPRESSION: 1. Age-appropriate involutional changes of the brain. 2. Mild cerebral small-vessel disease. 3. A chronic left gangliocapsular lacunar infarct. 4. No acute intracranial abnormality. PROCEDURE INFORMATION: Exam: CT Cervical Spine Without Contrast Exam date and time: 11/22/2020 4:56 AM Age: 80 years old Clinical indication: Injury or trauma; Blunt trauma (contusions or hematomas); Consciousness not specified; Patient HX: Trauma/fall; Per PT: Fell backwards and landed on head TECHNIQUE: Imaging protocol: Computed tomography images of the cervical spine without contrast. COMPARISON: CT HEAD CERVICAL SPINE WO 05/10/2019 7:13 PM FINDINGS: Bones/joints: No acute fracture. The lateral masses and facet joints are normally aligned. Discs/Spinal canal/Neural foramina: No significant disc protrusion. No severe spinal canal stenosis. Facet hypertrophy and uncovertebral joint hypertrophic changes with corresponding neural foraminal narrowing at multiple levels. At C5-C6, there is a posterior disc osteophyte complex. No severe spinal canal stenosis. Lungs: Lung apices are normal. Soft tissues: There are no paraspinal fluid collections or hematoma. IMPRESSION: No evidence of acute fracture or acute traumatic subluxation. The findings are similar to those of 05/10/2019. Multilevel facet arthrosis and uncovertebral joint hypertrophy with corresponding neural foraminal narrowing. Dictated and Authenticated by: Bright Saucedo MD. Ordering:EZRA Tate MD
[2020-11-22] MEDS: Acetaminophen 500 MG TAB 1000 MG PO (06:27)
== END 2020-11-22 08:10 | disposition home or self-care (01) ==
PROVIDERS: Emergency Provider Emergency Medicine; PCP Family Medicine
DX: S00.03XA Contusion of scalp, initial encounter (principal); W01.198A Fall on same level from slipping, tripping and stumbling with subsequent striking against other object, initial encounter; Z79.01 Long term (current) use of anticoagulants
CPT/HCPCS: 99283; 70450; 72125

== ENCOUNTER 2020-12-15 11:14 | Observation (INO) | payer MEDICARE, MEDICAID, SELFPAY ==
[2020-12-15] VITALS (20 sets, daily range): BP systolic 107–167; BP diastolic 48–71; PULSE 46–59; RESP 13–26; TEMP 35.8–36.3; O2SAT 93–100
--- NOTE | 2020-12-15 11:15 | RT.EKG_ITS ---
APPROVED REPORT Exam: Resting ECG Reason for Exam: chest pain Patient Location: E HR:58 bpm ECG Measurements Heart Rate 58 AXIS MA 179 P 53 QRSd 97 QRS 38 QT 477 T 37 QTc 469 Conclusion Sinus bradycardia...rate< 60 Ventricular premature complex...V complex w/ short R-R interval Anterolateral infarct, age indeterminate...Q >35mS, flat/neg T, V3-V6,I,aVL sinus rhythm. 58, normal axis, occasional PVC, no STEMI, nondiagnostic EKG
[2020-12-15 12:36] LABS: Abs Immature Grans 0.09 10^3/uL (0.0-0.06); Absolute Basophil Count 0.03 10^3/uL (0.0-0.2); Absolute Eosinophil Count 0.16 10^3/uL (0.0-0.7); Absolute Lymphocyte Count 1.11 10^3/uL (1.2-3.4); Absolute Monocyte Count 0.46 10^3/uL (0.1-0.8); Absolute Neutrophil Count 6.99 10^3/uL (1.2-6.7); Basophils % 0.3; Eosinophils % 1.8; HCT 30.7 % (36.0-46.0); HGB 9.2 g/dL (11.2-15.7); Lymphocytes % 12.6; MCH 26.9 pg (27.0-33.0); MCV 89.8 fL (80-95); MPV 9.9 fL (8.0-11.0); Monocytes % 5.2; Neutrophils % 79.1; Nucleated RBC 0 %; Platelet Count 170 10^3/uL (130-400); RBC 3.42 10^6/uL (3.93-5.22); RDW-SD 52.4 fL; WBC 8.84 10^3/uL (4.4-10.8)
[2020-12-15 13:20] LABS: ALT 21 U/L (14-59); AST 17 U/L (15-37); Albumin 3.8 g/dL (3.4-5.0); Alkaline Phosphatase 152 U/L (46-116); Anion Gap 5.7 mmol/L (3-11); BUN 50 mg/dL (7-18); Bilirubin, Total 0.4 mg/dL (0.2-1.0); CO2 33.3 mmol/L (21.0-32.0); CREATININE 1.8 mg/dL (0.55-1.02); Calcium 9.2 mg/dL (8.5-10.1); Chloride 102 mmol/L (98-107); Estimated GFR 27.07 (mL/min/1.73m2); Glucose 141 mg/dL (74-106); Sodium 141 mmol/L (136-145); TSH (W/Ref FT4) 0.87 uIU/mL (0.36-3.74)
[2020-12-15 13:23] LABS: Troponin I < 0.05 ng/mL (<0.06)
--- NOTE | 2020-12-15 13:30 | DI.CT_ITS ---
Exam(s) CT ABDOMEN PELVIS WO EXAM: CT ABDOMEN PELVIS WO CLINICAL HISTORY: abdominal pain. TECHNIQUE: Imaging Protocol: Axial computed tomography images with coronal and sagittal reformatted images were created and reviewed CONTRAST MATERIAL: Intravenous: none Oral: None COMPARISON: CT CTA BRAIN AND NECK from 10/02/2017 FINDINGS: Images are degraded by motion artifact VISUALIZED LUNG BASES: Mild increased markings both lung bases. No pleural effusions.. Sternotomy w ires. Cardiomegaly. ABDOMEN: There is no ascites. LIVER: There are no obvious focal hepatic lesions evident of this noninfused study. GALLBLADDER/BILIARY: Hyperdense material in the dependent aspect of the gallbladder, probably gallsto luca. CBD is not dilated. PANCREAS: No obvious abnormality SPLEEN: Spleen is not enlarged. No obvious intrasplenic lesions. ADRENALS: There are no significant adrenal masses. KIDNEYS:No cysts evident. No solid renal masses. No calculi nor hydronephrosis. . ABDOMINAL AORTA: Abdominal aorta is not enlarged. LYMPH NODES: There is no retroperitoneal nor paraaortic adenopathy. ABDOMINAL WALL: There is anterior abdominal wall fat containing hernia midline subumbilical. Hernia sac measures 2.5 x 3 cm. GI: There is no evidence of bowel obstruction, free air, nor abscess. PELVIS: LYMPH NODES: There is no intrapelvic nor inguinal adenopathy. GI: Appendix is not seen is a separate structure. No evidence of obvious acute appendicitisno eviden ce of sigmoid diverticulitis.Possible sigmoid colitis versus is under distension-lack of oral contras t. URINARY BLADDER: No calculi nor obvious masses evident REPRODUCTIVE: Uterus and adnexal regions appear age-appropriate. OSSEOUS: Compressions fractures of L1 and L3. Do not appear acute. IMPRESSION: 1. Cholelithiasis. Difficult to assess for cholecystitis given the amount of motion here. CBD is no t obviously dilated. 2. Anterior abdominal wall fat containing hernia measuring 25 x 30 millimeters. No bowel loops there in. No bowel obstruction 3. Non acute appearing compression fractures of L1-L3. RADIATION DOSE DELIVERED: 1,579.14mGy.cm Total DLP DATA REPOSITORY: All CT scans at this facility are submitted to the National Radiology Data Registry (NRDR) Dose Index Registry (DIR) with the [employer] ([employer]). RADIATION OPTIMIZATION: All CT scans at this facility use at least one of these dose optimization te chniques: automated exposure control; mA and/or kV adjustment per patient size (includes targeted exa ms where dose is matched to clinical indication); or iterative reconstruction.
--- NOTE | 2020-12-15 13:30 | DI.CT_ITS ---
Exam(s) CT THORACIC SPINE WO EXAM: CT THORACIC SPINE WO CLINICAL HISTORY: trauma, upper back pain. TECHNIQUE: Imaging Protocol: Axial computed tomography images with coronal and sagittal reformatted images were created and reviewed. CONTRAST MATERIAL: Intravenous: Omnipaque 350 Contrast volume:structured data in ml Contrast route:I V - Oral: yes / no COMPARISON: CT CT THORACIC SPINE WO from 05/10/2019 FINDINGS: Compression fracture of L1 noted, approximately 60 percent. This is unchanged from CT scan of 2019. Compression fracture superior endplate level of T7 also again noted and unchanged. Indentation of superior endplate of T5 is also unchanged. No evidence of acute compromise of the thoracic spinal column. No new additional fractures evident. No significant listhesis. IMPRESSION: Findings as above but without significant change compared to CT scan 05/10/2019 RADIATION DOSE DELIVERED: 1,130.33mGy.cm Total DLP DATA REPOSITORY: All CT scans at this facility are submitted to the National Radiology Data Registry (NRDR) Dose Index Registry (DIR) with the [employer] ([employer]). RADIATION OPTIMIZATION: All CT scans at this facility use at least one of these dose optimization te chniques: automated exposure control; mA and/or kV adjustment per patient size (includes targeted exa ms where dose is matched to clinical indication); or iterative reconstruction.
--- NOTE | 2020-12-15 13:30 | DI.RAD_ITS ---
Exam(s) XR HUMERUS RT EXAM: XR HUMERUS RT CLINICAL HISTORY: trauma, pain. TECHNIQUE: 2D digital imaging was performed. COMPARISON: No exams were available for comparison FINDINGS: There is dislocation of the humeral head relative to the glenoid fossa. This is anterior dislocation . No obvious fracture evident. IMPRESSION: DATA REPOSITORY: RADIATION DOSE DELIVERED:
--- NOTE | 2020-12-15 15:30 | RT.EKG_ITS ---
APPROVED REPORT Exam: Resting ECG Reason for Exam: chest pain] Patient Location: E HR:52 bpm ECG Measurements Heart Rate 52 AXIS TX 186 P 13 QRSd 96 QRS 21 QT 495 T 36 QTc 460 Conclusion Sinus bradycardia...rate< 60 sinus rhythm 52, normal axis, no STEMI, nondiagnostic EKG
[2020-12-15 16:20] LABS: Troponin I < 0.05 ng/mL (<0.06)
--- NOTE | 2020-12-15 17:11 | W.ED.GENAD ---
Discharge Plan Disposition Patient Disposition: [facility] INPATIENT Condition: Fair Discharge Details Chief Complaint: GenMedical Clinical Impression: Dislocation of right shoulder joint Admit Date/Time: 12/15/20 17:23 Admit Provider: Darian Lucero Attending Provider: Darian Lucero Primary Care Provider: Perry Graham ED Provider: Debra Alicia Discharge Instructions Activity:: Activity as Tolerated Equipment/Supplies:: No Equipment Needed Diet:: As Tolerated Discharge Orders Discharge Orders: Discharge Order (Routine); Ordered 12/16/20 Ordered By: Johnna Guerrero Discharge Data Discharge Date/Time-TO BE ENTERED AT DEPARTURE: 12/15/20 19:02 Medical Decision Making Lucy Vinson is an 80 y/o woman with multiple medical problems presenting to the emergency with upper back and left shoulder pain since fall approximately 3 weeks ago, also abdominal pain over the past week. Patient is a poor historian, initially complaining of left chest pain, upon further discussion she reports that this is actually pain in her left nipple. On exam there is no tenderness to palpation or other apparent abnormality of the left breast. There is no chest wall tenderness to palpation. Patient's positioning and bed makes evaluation of possible right shoulder deformity difficult, however patient request position not be adjusted secondary to pain in her right upper arm. There is no tenderness to palpation of the right shoulder, there is tenderness to palpation of the midshaft humerus. No overlying skin changes. Right upper extremity is neurovascularly intact. Abdomen is diffusely tender without focality, no rebound, no guarding. Concern for possible thoracic spine fracture pathologic versus traumatic secondary to fall, possible humerus fracture, possible acute emergent intra-abdominal pathology, other. Chest pain does seem to be located in the left nipple area, however given unclear history and significant medical comorbidities, concern for possible acute coronary syndrome. Exam/history at this time is not consistent with sepsis, pulmonary embolism, acute aortic pathology, acute emergent intracranial pathology, acute emergent cervical spine pathology, septic arthritis. Plan for IV placement, EKG, screening labs, humerus x-ray, thoracic spine CT, CT abdomen/pelvis. Will attempt to obtain imaging from [facility]. Labs reviewed, WBC 8.84, hemoglobin 9.2 and approximate baseline, creatinine 1.2, troponin negative. CT abdomen/pelvis negative for acute process, thoracic spine CT shows no acute process, x-ray humerus shows anterior shoulder dislocation. On reassessment, patient reports that she has had no trauma or injury to the right shoulder since the fall 3 weeks ago. This dislocation is very likely chronic since the fall. Patient is not a candidate for emergency department reduction. I discussed patient presentation results with Dr. Tam of orthopedic surgery, who requested the patient be admitted for preop evaluation. Patient admitted to Dr. Lucero, hospitalist. Medical Records Medical records reviewed: Yes I reviewed the patient's medical records. Imaging Data Radiologic Study: Attestation: I personally reviewed and interpreted this imaging study as follows: Radiologist's impression: EXAM: CT THORACIC SPINE WO CLINICAL HISTORY: trauma, upper back pain. TECHNIQUE: Imaging Protocol: Axial computed tomography images with coronal and sagittal reformatted images were created and reviewed. CONTRAST MATERIAL: Intravenous: Omnipaque 350 Contrast volume:structured data in ml Contrast route:IV - Oral: yes / no COMPARISON: CT CT THORACIC SPINE WO from 05/10/2019 FINDINGS: Compression fracture of L1 noted, approximately 60 percent. This is unchanged from CT scan of 05/10/2019. Compression fracture superior endplate level of T7 also again noted and unchanged. Indentation of superior endplate of T5 is also unchanged. No evidence of acute compromise of the thoracic spinal column. No new additional fractures evident. No significant listhesis. IMPRESSION: Findings as above but without significant change compared to CT scan 05/10/2019 EXAM: XR HUMERUS RT CLINICAL HISTORY: trauma, pain. TECHNIQUE: 2D digital imaging was performed. COMPARISON: No exams were available for comparison FINDINGS: There is dislocation of the humeral head relative to the glenoid fossa. This is anterior dislocation. No obvious fracture evident. EXAM: CT ABDOMEN PELVIS WO CLINICAL HISTORY: abdominal pain. TECHNIQUE: Imaging Protocol: Axial computed tomography images with coronal and sagittal reformatted images were created and reviewed CONTRAST MATERIAL: Intravenous: none Oral: None COMPARISON: CT CTA BRAIN AND NECK from 10/02/2017 FINDINGS: Images are degraded by motion artifact VISUALIZED LUNG BASES: Mild increased markings both lung bases. No pleural effusions.. Sternotomy wires. Cardiomegaly. ABDOMEN: There is no ascites. LIVER: There are no obvious focal hepatic lesions evident of this noninfused study. GALLBLADDER/BILIARY: Hyperdense material in the dependent aspect of the gallbladder, probably gallstones. CBD is not dilated. PANCREAS: No obvious abnormality SPLEEN: Spleen is not enlarged. No obvious intrasplenic lesions. ADRENALS: There are no significant adrenal masses. KIDNEYS:No cysts evident. No solid renal masses. No calculi nor hydronephrosis. . ABDOMINAL AORTA: Abdominal aorta is not enlarged. LYMPH NODES: There is no retroperitoneal nor paraaortic adenopathy. ABDOMINAL WALL: There is anterior abdominal wall fat containing hernia midline subumbilical. Hernia sac measures 2.5 x 3 cm. GI: There is no evidence of bowel obstruction, free air, nor abscess. PELVIS: LYMPH NODES: There is no intrapelvic nor inguinal adenopathy. GI: Appendix is not seen is a separate structure. No evidence of obvious acute appendicitisno evidence of sigmoid diverticulitis.Possible sigmoid colitis versus is under distension-lack of oral contrast. URINARY BLADDER: No calculi nor obvious masses evident REPRODUCTIVE: Uterus and adnexal regions appear age-appropriate. OSSEOUS: Compressions fractures of L1 and L3. Do not appear acute. IMPRESSION: 1. Cholelithiasis. Difficult to assess for cholecystitis given the amount of motion here. CBD is not obviously dilated. 2. Anterior abdominal wall fat containing hernia measuring 25 x 30 millimeters. No bowel loops therein. No bowel obstruction 3. Non acute appearing compression fractures of L1-L3. Lab Data Lab results reviewed: Yes I reviewed the patient's lab results. ECG Data Attestation: I personally reviewed and interpreted this ECG (s) as follows: Interpretation: EKG shows sinus rhythm. 58, normal axis, occasional PVC, no STEMI, nondiagnostic EKG EKG 1534 shows sinus rhythm 52, normal axis, no STEMI, nondiagnostic EKG HPI General Mode of arrival: EMS. Date/Time Provider Initiated Documentation: 12/15/20 11:35. Limitations to Documentation: no limitations. Information obtained by: patient, RN notes reviewed and old records reviewed. HPI Narrative: Lucy Ruiz is an 80-year-old woman with history of aortic stenosis, B-cell lymphoma, coronary artery disease status post CABG, hypothyroidism, polymyalgia rheumatica, diabetes, CHF, chronic kidney disease presenting to the emergency department with chief complaint upper back pain and right arm pain, also left breast pain. Patient reports that 3 weeks ago she lost her balance and fell backwards, hitting her right shoulder and upper back. Patient reports that she was seen at [facility] for this, had imaging that was negative for injury. Patient reports that pain in her upper back and in her right shoulder has been severe and persistent since the fall. She also reports intermittent pain around the nipple of her left breast over the past few weeks that is not currently occurring. Patient also reports chronic abdominal pain that seems worse over the past week, and patient reports that she has been feeling generally unwell since onset of abdominal pain. Denies any other new pain, fever, cough, shortness of breath change from baseline (patient is on 24/7 O2 at baseline), vomiting, diarrhea, rash. Related Data Home Medications Medication Instructions Recorded Confirmed Brilinta 90 mg PO BID 03/11/13 12/28/20 sertraline 200 mg PO DAILY 05/17/16 12/28/20 levothyroxine [Synthroid] 150 mcg PO DAILY AM 10/09/17 12/28/20 spironolactone 25 mg PO DAILY AM 10/09/17 12/28/20 sucralfate [Carafate] 1 g PO QID 03/05/18 12/28/20 Acidophilus 1 tab PO DAILY 12/03/19 12/28/20 amlodipine 5 mg PO DAILY 12/03/19 12/28/20 cholecalciferol (vitamin D3) 1,000 unit PO DAILY 12/03/19 12/28/20 [Vitamin D3] dicyclomine 20 mg PO QID PRN PRN 12/03/19 12/28/20 ferrous sulfate 325 mg PO DAILY 12/03/19 12/28/20 fluticasone propion-salmeterol 1 inh INHALATION BID 12/03/19 12/28/20 [Advair Diskus] ipratropium-albuterol 3 ml INHALATION Q4H PRN PRN 12/03/19 12/28/20 levalbuterol tartrate [Xopenex HFA] 2 puff INHALATION Q4H PRN PRN 12/03/19 12/28/20 omeprazole 40 mg PO BID 12/03/19 12/28/20 pramipexole 0.5 mg PO BID 12/03/19 12/28/20 bumetanide 2 mg PO BID 03/03/20 12/28/20 loratadine 10 mg PO DAILY 03/03/20 12/28/20 nitroglycerin 0.4 mg SUBLINGUAL Q5M PRN 03/03/20 12/28/20 metoprolol succinate 100 mg PO DAILY 11/22/20 12/28/20 acetaminophen [Tylenol Extra 1,000 mg PO Q8H #180 tab 12/16/20 12/28/20 Strength] atorvastatin 20 mg PO QHS 12/16/20 12/28/20 fentanyl 1 patch TRANSDERMAL Q72H #1 ea 12/16/20 12/28/20 folic acid 1 mg PO DAILY #30 tab 12/16/20 12/28/20 meclizine 25 mg tablet 25 mg PO DAILY PRN 12/17/20 12/28/20 nebivolol 10 mg tablet 10 mg PO DAILY 12/17/20 12/28/20 nystatin 100,000 unit/gram topical 1 applic TOPICAL TID PRN 12/17/20 12/28/20 cream nystatin 100,000 unit/gram topical 1 applic TOPICAL TID PRN 12/17/20 12/28/20 powder nystatin 100,000 unit/mL oral 5 ml PO QID PRN ml 12/17/20 12/28/20 suspension tramadol 50 mg tablet 50 mg PO QHS PRN 12/17/20 12/28/20 gabapentin 100 mg capsule 100 mg PO TID 12/28/20 12/28/20 prednisone 5 mg tablet 5 mg PO DAILY tab 12/28/20 12/28/20 Previous Rx's Medication Instructions Recorded acetaminophen [Tylenol Extra 1,000 mg PO Q8H #180 tab 12/16/20 Strength] fentanyl 1 patch TRANSDERMAL Q72H #1 ea 12/16/20 folic acid 1 mg PO DAILY #30 tab 12/16/20 Allergies Allergy/AdvReac Type Severity Reaction Status Date / Time aspirin Allergy Severe Anaphylaxsi Verified 12/28/20 10:53 s morphine Allergy Intermediate Skin Rash Verified 12/28/20 10:53 NSAIDS (Non-Steroidal Allergy Intermediate Skin Rash Verified 12/28/20 10:53 Anti-Inflamma Sulfa (Sulfonamide Allergy Intermediate Skin Rash Verified 12/28/20 10:53 Antibiotics) Quinidine-Quinine Analogues AdvReac Intermediate high fever Verified 12/28/20 10:53 (Cincho tetanus and diphtheria AdvReac Intermediate Swelling/Ed Verified 12/28/20 10:53 toxoids rachel [Tetanus&Diphtheria Toxoid] NADIYA Inhibitors AdvReac Mild cough Verified 12/28/20 10:53 General Stated Complaint: GenMedical ELISE: 3 Review of Systems Narrative: Constitutional: denies fevers Eyes: denies eye pain ENT: denies ear pain, dental pain, sore throat Cardiovascular: reports left chest pain, later clarified as left breast pain as per HPI Respiratory: denies cough, GI: denies vomiting, diarrhea, reports abdominal pain : denies flank pain MSK: reports upper back pain, right shoulder pain, denies neck pain, new arthralgias/myalgias Skin: denies rash Neuro: denies headaches, numbness, focal weakness [facility] Medical History Acute prerenal azotemia Altered mental state Anemia Anxiety Aortic stenosis, moderate (~07/2017) Asthma Chronic hypoxemic respiratory failure and patient is on 2 liters of oxygen chronically at rest and 3 liters with exertion. B-cell lymphoma Bilateral shoulder pain rotator cuff tears plus OA? CAD (coronary artery disease) CABG approximately ten years ago; recently cardiac cath with single stent placement on inferior portion of heart down at [facility]. Dr. Navarro follows patient. Candidiasis of mouth Candidiasis of skin CHF (congestive heart failure) HFPEF w/ LVEF 65% per echo from 04/24/2019. RV is dilated w/ apical hypokinesis, biatrial enlargement, moderate aortic stenosis, severe PHTN (RVSP 75 TO 80 MM) Cholelithiasis without cholecystitis Chronic GERD CKD (chronic kidney disease), stage III Baseline creatine 1.1 to 1.3 Compression fracture of L1 lumbar vertebra (~07/2017) Decreased performance of ADLs Decreased range of motion bilateral shoulders Decubital ulcer Discharge planning issues Edema due to congestive heart failure Falls frequently Frailty syndrome in geriatric patient Goals of care, counseling/discussion Hernia of abdominal wall recurrent problem; LUQ Mar 2020 HLD (hyperlipidemia) Hx of CABG (~2000) 2000 Hypertensive disorder Hypothyroidism Lives alone with help available has BOOK AUTHOR from 8 am to 1 pm daughter lives near by Low back pain LVH (left ventricular hypertrophy) Morbid obesity Obesity (BMI 30.0-34.9) Open wound of scapular region without complication Palliative care patient Peripheral vascular disease Pneumonia Polymyalgia rheumatica Pulmonary embolism PVD (peripheral vascular disease) Type 2 diabetes mellitus On insulin. Unintentional weight loss Vascular dementia mild Venous stasis dermatitis of both lower extremities Vitamin B 12 deficiency Weight gain with edema Surgical History H/O hernia repair S/P CABG x 2 Status post revision of total replacement of both knees Family History Daughter Diabetes Son Diabetes Obesity Mother , age 49 of breast cancer Breast cancer Father , age 68 of stroke Stroke Hypertension Sister Seizure disorder Sister , from complications of her RA, Lucy not clear how Rheumatoid arthritis Brother Leukemia Brother Heart disease Sister Dementia Social History Smoking/Tobacco Use Status: Never Second Hand Exposure: No Smoking risk assessment performed?: Yes Alcohol Intake: never Drug use: Never Substance use type: does not use Caregiver/Support person: Yes (during the day) Household members: other Details: hired young woman for 5 hrs/day, 5 days/wk; family around too Housing: house Number of Children: 2 number of grandchildren: 5 Communication Needs: Hard of Hearing and Corrective Lenses Education Level: high school Do you need help understanding health information?: Always 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, 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, 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 Pets and animals: Yes Pets and animals: cat(s) Current gender identity: female What is your relationship status?: How often do you talk on the phone with friends or family?: three or more times per week How often do you get together with friends or relatives?: three or more times per week Panel score (0-1 are the most socially isolated patients): 1 What type of physical activity do you participate in: none and sedentary lifestyle Special toi needs: No Agree to transfusion: Yes Seatbelt use: always Working smoke detector in home: Yes Fire extinguisher in home: Yes Do you feel safe at home: Yes Do you feel safe in your relationship?: Yes Additional Social history: Lives alone in her own home since February 2018. Prior to that was living with her daughter for about a year. She was at a retirement in [place] prior to moving in with her daughter. NEVER wants to go to a retirement again. Never wants to go to [facility]. Definitely the matriarch of her family. Has help now from Sarah, who helps her with ADLs. Keeps on eye on her diet. has assistance 5 days per week now. Exam Narrative Exam Narrative: Constitutional: chronically ill-appearing, pleasant, conversing normally HENT: head atraumatic/normocephalic/normal inspection, mucous membranes moist Eyes: conjunctiva normal, sclera normal, pupils 3mm b/l Neck: no stridor, normal ROM, trachea midline, no TTP of the cervical spine Chest: normal inspection, no chest wall TTP, normal inspection of left breast, no breast mass or nipple discharge, no TTP of the left breast Resp: normal work of breathing, LCTAB Cardio: normal rate, normal rhythm GI: abdomen soft, diffuse tenderness palpation of the abdomen, no rebound, no guarding, ventral hernia, reduces easily, no focal tenderness at hernia site, no overlying skin changes, non-distended Back: normal inspection, no rash, diffuse TTP of the thoracic spine Skin: warm, dry, normal color, no rash Neuro: alert, not altered, grossly non-focal, normal tone Ext: no edema, unclear deformity of left shoulder vs positioning, no TTP of the left shoulder, TTP of the left humerous, somewhat limited ROM left shoulder 2/2 pain, able to range left elbow and wrist normally, normal joint runner strength b/l, radial pulses intact and symmetric, distal UEs with brisk cap refill, RUE sensation intact Psych: normal affect, normal behavior Course Vital Signs Vital signs: Vital Signs Temperature 36.3 C L 12/15/20 11:26 Pulse 56 L 12/15/20 11:26 Respiratory Rate 18 12/15/20 11:26 Blood Pressure 167/71 H 12/15/20 11:26 Pulse Oximetry 100 12/15/20 11:26 Temperature 36.3 C L 12/15/20 11:26 Temperature Source Tympanic 12/15/20 11:26 Pulse 56 L 12/15/20 11:26 Pulse 51 L 12/15/20 14:00 Respiratory Rate 20 12/15/20 14:00 Respiratory Effort 12/15/20 14:21 Respiratory Depth Normal 12/15/20 14:21 Respiratory Pattern Normal 12/15/20 14:21 Blood Pressure 167/71 H 12/15/20 11:26 Blood Pressure Position Supine 12/15/20 11:26 Pulse Oximetry 100 12/15/20 11:50 Oxygen Delivery Method Nasal Cannula 12/15/20 11:26 Oxygen Flow Rate 2 12/15/20 11:26 Pain Level 6 12/15/20 11:26 Lab/Test Results Lab/Test Results: Laboratory Tests Range/Units 12/15/20 12/15/20 12/15/20 12:05 12:05 15:30 WBC (4.4-10.8) 10^3/uL 8.84 RBC (3.93-5.22) 10^6/uL 3.42 L Hgb (11.2-15.7) g/dL 9.2 L Hct (36.0-46.0) % 30.7 L MCV (80-95) fL 89.8 MCH (27.0-33.0) pg 26.9 L MCHC (32.0-36.0) % 30.0 L RDW (11.7-14.6) % 16.0 H Plt Count (130-400) 10^3/uL 170 MPV (8.0-11.0) fL 9.9 Immature Gran % 1.0 Neutrophils % 79.1 Lymphocytes % 12.6 Monocytes % 5.2 Eosinophils % 1.8 Basophils % 0.3 Nucleated RBC % % 0 Absolute Neutrophils (1.2-6.7) 10^3/uL 6.99 H Absolute Lymphocytes (1.2-3.4) 10^3/uL 1.11 L Absolute Monocytes (0.1-0.8) 10^3/uL 0.46 Absolute Eosinophils (0.0-0.7) 10^3/uL 0.16 Absolute Basophils (0.0-0.2) 10^3/uL 0.03 Sodium (136-145) mmol/L 141 Potassium (3.5-5.1) mmol/L 4.0 Chloride (98-107) mmol/L 102 Carbon Dioxide (21.0-32.0) mmol/L 33.3 H Anion Gap (3-11) mmol/L 5.7 BUN (7-18) mg/dL 50 H Creatinine (0.55-1.02) mg/dL 1.8 H Estimated GFR/1.73 m2 (mL/min/1.73m2) 27.07 Glucose (74-106) mg/dL 141 H Calcium (8.5-10.1) mg/dL 9.2 Magnesium (1.8-2.4) mg/dL 2.0 Total Bilirubin (0.2-1.0) mg/dL 0.4 AST (15-37) U/L 17 ALT (14-59) U/L 21 Alkaline Phosphatase (46-116) U/L 152 H Troponin I (<0.06) ng/mL < 0.05 < 0.05 Total Protein (6.4-8.2) g/dL 8.0 Albumin (3.4-5.0) g/dL 3.8 TSH (0.36-3.74) uIU/mL 0.87
--- NOTE | 2020-12-15 17:43 | W.PM.HP.N ---
Date of service: 12/15/20 Time of Service: 17:43 Assessment and Plan Assessment and plan (1) Dislocation of right shoulder joint: Status: Acute Assessment and plan: Patient is an unacceptably high risk for general anesthesia. She is an ASA category 3 borderline 4. Her calculated revised Devyn-Lopez cardiac risk score is greater than 11% and her geriatric sensitive perioperative cardiac risk score is 19%. These are population based risk course for perioperative GA and cardiac arrest and while they may not be in store marketing representative of an individual's risk they do give some indication based on her comorbidities which include history of cerebrovascular disease, history of coronary artery disease, congestive heart failure, chronic kidney disease, age, diabetes mellitus and similar such individuals in aggregate gives the above risk scores. Furthermore the patient has moderate aortic stenosis. She has had very limited functional capacity even prior to her shoulder injury. She is dependent on home health aide to help her with bathing and dressing and preparing meals. Patient ambulates no further than her bedroom to the bathroom or to her chair. She gets dyspneic with even short walks across the room and she is home oxygen dependent. If there is a way that the right shoulder can be reduced without using general anesthesia such as regional nerve blocks that may be appropriate to pursue. However if general anesthesia is needed then the patient would be best served being treated at a tertiary care center where cardiac anesthesiology can assist with management. Patient remains a full code according to her wishes. Present time I think alternative pain management solutions would be appropriate. Case discussed w/ Dr. Tam via text messages. Qualifiers: Encounter type: initial encounter Qualified Code(s): S43.004A - Unspecified dislocation of right shoulder joint, initial encounter (2) Ambulatory dysfunction: Status: Chronic Assessment and plan: consult P.T. to evaluate fall safety and work w/ her on her ambulation to prevent falls (3) CAD (coronary artery disease): Status: Chronic Assessment and plan: History of prior two-vessel coronary bypass graft and subsequent coronary stenting. Patient has nitroglycerin at home but states that she has not used it in several months. Her limited functional capacity has kept her below the threshold for citing any angina. Qualifiers: Associated angina: without angina Coronary Disease-Associated Artery/Lesion type: unspecified vessel or lesion type [place] vs. transplanted heart: [place] heart Qualified Code(s): I25.10 - Atherosclerotic heart disease of [place] coronary artery without angina pectoris (4) CHF (congestive heart failure): Status: Chronic Assessment and plan: Heart failure with preserved ejection fraction and moderate aortic stenosis. Patient also has severe pulmonary hypertension and is chronically dyspneic and requiring oxygen. She has some bibasilar rales but no peripheral edema and is not symptomatic at rest. (5) Aortic stenosis, moderate: Status: Chronic (6) Type 2 diabetes mellitus: Status: Chronic Assessment and plan: Patient states that she has not been on treatment for her diabetes mellitus for couple years. It appears that her last glycohemoglobin A1c here at [facility] was 6.2% in March 06, 2018. Prior to that in 2017 she was running between 7.2 and 8.8%. We will monitor and cover w/ SSI prn, no basal insulin has been ordered since she has not been on any insulin at home. 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 (8) CKD (chronic kidney disease), stage III: Status: Chronic Assessment and plan: patient is actually stage 4 CKD w/ GFR under 30 mL/minute/1.73 m2 Qualifiers: Chronic kidney disease stage 3 subtype: unspecified whether 3a or 3b Qualified Code(s): N18.30 - Chronic kidney disease, stage 3 unspecified (9) Polymyalgia rheumatica: Status: Chronic Assessment and plan: patient is steroid dependent. I have put her on stress dose steroids however if no surgery is performed she can quickly be put back on her home maintenance dose (10) PVD (peripheral vascular disease): Status: Chronic (11) Chronic GERD: Status: Acute Assessment and plan: cont. home dose of prilosec (12) DVT prophylaxis: Status: Chronic Assessment and plan: heparin SC (13) Discharge planning issues: Status: Acute History of Present Illness History of Present Illness Chief Complaint: right shoulder pain Narrative: 80 yr old female w/ PMH of CHF (HFPEF), severe aortic stenosis, CAD (s/p CABG X 2), CKD (baseline creatinine 1.6, BUN 50), PMR, prior CVA, chronically on home oxygen 2.5 LPM who fell 3 wks ago and has been having ongoing upper back pain and right shoulder pains. She also told the ER she was having chest pain and abdominal pain. Workup in the ER included routine labs (CBC, CMP, troponin I), EKG and xray of her righ humerus and CT of her abdomen and pelvis and her thoracic spine. Labs demonstrate CKD w/ mildly increased creatinine of 1.8 and BUN of 50. Troponin I was normal x 2 sets. CBC demonstrated chronic normochromic anemia w/ Hb 9.2 gm. No leukocytosis. No SARS-Cov2 test has been done yet. EKG x 2 sets shows sinus bradycardia in the 50's w/out acute ischemia or injury pattern. There is borderline criteria for LVH. Xray of her right humerus demonstrated: FINDINGS: There is dislocation of the humeral head relative to the glenoid fossa. This is anterior dislocation. No obvious fracture evident. CT of the abdomen and pelvis demonstrated the following: IMPRESSION: 1. Cholelithiasis. Difficult to assess for cholecystitis given the amount of motion here. CBD is not obviously dilated. 2. Anterior abdominal wall fat containing hernia measuring 25 x 30 millimeters. No bowel loops therein. No bowel obstruction 3. Non acute appearing compression fractures of L1-L3. CT of the thoracic spine demonstrated the following: FINDINGS: Compression fracture of L1 noted, approximately 60 percent. This is unchanged from CT scan of 05/10/2019. Compression fracture superior endplate level of T7 also again noted and unchanged. Indentation of superior endplate of T5 is also unchanged. No evidence of acute compromise of the thoracic spinal column. No new additional fractures evident. No significant listhesis. IMPRESSION: Findings as above but without significant change compared to CT scan 05/10/2019 Dr. Debra Alicia, ER attending, reports to me that she spoke w/ Dr. Tam and that he would like the patient admitted to the hospitalist service for medical clearance for possible operative repair of her dislocated shoulder. Per patient reports she has had chronic bilateral shoulder pains for years and has had steroid injections in the past. She has limited functional mobility of her arms unable to raise them over her head. She lives along in her home in [place] but has a home health aid come each morning to help her w/ her bathes or getting dressed and making her meals. She only walks from her bed to her chair or to the bathroom, all on one floor. She is dependent on oxygen at 2.5 LPM d/t her COPD. She denies any anginal quality pain w/ her limited ADL's. Review of Systems Constitutional Constitutional: Reports as per HPI Eyes Eyes: Reports system reviewed and no additional complaints, except as documented ENT Ears, Nose, Mouth, and Throat: Reports system reviewed and no additional complaints, except as documented Cardiovascular Cardiovascular: Denies chest pain, Denies chest pain at rest, Denies syncope, Denies irregular heart rhythm, Denies leg edema, Denies lightheadedness, Reports dyspnea and Reports dyspnea on exertion Respiratory Respiratory: Reports dyspnea and Reports dyspnea on exertion Gastrointestinal Gastrointestinal: Reports system reviewed and no additional complaints, except as documented Genitourinary Genitourinary: Reports system reviewed and no additional complaints, except as documented Musculoskeletal Musculoskeletal: Reports as per HPI Integumentary/Breasts Skin/Breast: Reports system reviewed and no additional complaints, except as documented Neurologic Neurologic: Reports system reviewed and no additional complaints, except as documented and Denies syncope Endocrine Endocrine: Reports system reviewed and no additional complaints, except as documented Hematologic/Lymphatic Hematologic/Lymphatic: Reports system reviewed and no additional complaints, except as documented Allergic/Immunologic Allergic/Immunologic: Reports system reviewed and no additional complaints, except as documented [facility] Medical History (Updated 12/15/20 @ 22:16 by Darian Lucero) Acute prerenal azotemia Altered mental state Anemia Anxiety Aortic stenosis, moderate (~07/2017) Asthma Chronic hypoxemic respiratory failure and patient is on 2 liters of oxygen chronically at rest and 3 liters with exertion. Bilateral shoulder pain rotator cuff tears plus OA? CAD (coronary artery disease) CABG approximately ten years ago; recently cardiac cath with single stent placement on inferior portion of heart down at [facility]. Dr. Navarro follows patient. CHF (congestive heart failure) HFPEF w/ LVEF 65% per echo from 04/24/2019. RV is dilated w/ apical hypokinesis, biatrial enlargement, moderate aortic stenosis, severe PHTN (RVSP 75 TO 80 MM) Cholelithiasis without cholecystitis Chronic GERD CKD (chronic kidney disease), stage III Baseline creatine 1.1 to 1.3 Compression fracture of L1 lumbar vertebra (~07/2017) Decreased performance of ADLs Decreased range of motion bilateral shoulders Decubital ulcer Discharge planning issues Edema due to congestive heart failure Falls frequently Frailty syndrome in geriatric patient Goals of care, counseling/discussion Hernia of abdominal wall recurrent problem; LUQ Mar 2020 Hx of CABG (~2000) 2000 Hypothyroidism Lives alone with help available has [employer] from 8 am to 1 pm daughter lives near by Low back pain LVH (left ventricular hypertrophy) Morbid obesity Obesity (BMI 30.0-34.9) Open wound of scapular region without complication Palliative care patient Peripheral vascular disease Pneumonia Polymyalgia rheumatica Pulmonary embolism PVD (peripheral vascular disease) Type 2 diabetes mellitus On insulin. Unintentional weight loss Vascular dementia mild Venous stasis dermatitis of both lower extremities Vitamin B 12 deficiency Weight gain with edema Surgical History (Updated 12/15/20 @ 21:56 by Darian Lucero) H/O hernia repair S/P CABG x 2 Status post revision of total replacement of both knees Family History Daughter Diabetes Son Diabetes Obesity Mother , age 49 of breast cancer Breast cancer Father , age 68 of stroke Stroke Hypertension Sister Seizure disorder Sister , from complications of her RA, Lucy not clear how Rheumatoid arthritis Brother Leukemia Brother Heart disease Sister Dementia Social History Smoking/Tobacco Use Status: Never Second Hand Exposure: No Smoking risk assessment performed?: Yes Alcohol Intake: never Drug use: Never Substance use type: does not use Caregiver/Support person: Yes (during the day) Household members: other Details: hired young woman for 5 hrs/day, 5 days/wk; family around too Housing: house Number of Children: 2 number of grandchildren: 5 Communication Needs: Hard of Hearing and Corrective Lenses Education Level: high school Do you need help understanding health information?: Always 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, 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, 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 Pets and animals: Yes Pets and animals: cat(s) Current gender identity: female What is your relationship status?: How often do you talk on the phone with friends or family?: three or more times per week How often do you get together with friends or relatives?: three or more times per week Panel score (0-1 are the most socially isolated patients): 1 What type of physical activity do you participate in: none and sedentary lifestyle Special toi needs: No Agree to transfusion: Yes Seatbelt use: always Working smoke detector in home: Yes Fire extinguisher in home: Yes Do you feel safe at home: Yes Do you feel safe in your relationship?: Yes Additional Social history: Lives alone in her own home since February 2018. Prior to that was living with her daughter for about a year. She was at a care home in [place] prior to moving in with her daughter. NEVER wants to go to a care home again. Never wants to go to [facility]. Definitely the matriarch of her family. Has help now from Sarah, who helps her with ADLs. Keeps on eye on her diet. has assistance 5 days per week now. Meds Allergies and Home Medications Allergies Allergy/AdvReac Type Severity Reaction Status Date / Time aspirin Allergy Severe Anaphylaxsi Unverified 11/22/20 04:53 s morphine Allergy Intermediate Skin Rash Unverified 11/22/20 04:53 NSAIDS (Non-Steroidal Allergy Intermediate Skin Rash Unverified 11/22/20 04:53 Anti-Inflamma Sulfa (Sulfonamide Allergy Intermediate Skin Rash Unverified 11/22/20 04:53 Antibiotics) Quinidine-Quinine Analogues AdvReac Intermediate high fever Unverified 11/22/20 04:53 (Cincho tetanus and diphtheria AdvReac Intermediate Swelling/Ed Unverified 11/22/20 04:53 toxoids rachel [Tetanus&Diphtheria Toxoid] NADIYA Inhibitors AdvReac Mild cough Unverified 11/22/20 04:53 Home Medications Medication Instructions Recorded Confirmed Type Brilinta 90 mg PO BID 03/11/13 12/15/20 History sertraline 200 mg PO DAILY 05/17/16 12/15/20 History levothyroxine [Synthroid] 150 mcg PO DAILY AM 10/09/17 12/15/20 History spironolactone 25 mg PO DAILY AM 10/09/17 12/15/20 History sucralfate [Carafate] 1 g PO QID 03/05/18 12/15/20 History Acidophilus 1 tab PO DAILY 12/03/19 12/15/20 History amlodipine 5 mg PO DAILY 12/03/19 12/15/20 History cholecalciferol (vitamin D3) 1,000 unit PO DAILY 12/03/19 12/15/20 History [Vitamin D3] dicyclomine 20 mg PO QID PRN PRN 12/03/19 12/15/20 History fentanyl 1 patch TRANSDERMAL Q48H 12/03/19 12/15/20 History ferrous sulfate 325 mg PO DAILY 12/03/19 12/15/20 History fluticasone propion-salmeterol 1 inh INHALATION BID 12/03/19 12/15/20 History [Advair Diskus] ipratropium-albuterol 3 ml INHALATION Q4H PRN PRN 12/03/19 12/15/20 History levalbuterol tartrate [Xopenex HFA] 2 puff INHALATION Q4H PRN PRN 12/03/19 12/15/20 History omeprazole 40 mg PO BID 12/03/19 12/15/20 History pramipexole 0.5 mg PO BID 12/03/19 12/15/20 History prednisone 10 mg PO DAILY 12/03/19 12/15/20 History bumetanide 2 mg PO BID 03/03/20 12/15/20 History loratadine 10 mg PO DAILY 03/03/20 12/15/20 History nitroglycerin 0.4 mg SUBLINGUAL Q5M PRN 03/03/20 12/15/20 History metoprolol succinate 100 mg PO DAILY 11/22/20 12/15/20 History Exam Narrative Exam Narrative: Elderly white female lying in bed in semisolid position alert oriented person place time circumstance. HEENT atraumatic normocephalic pupils equally round reactive to light and accommodation extraocular motion intact. Sclera anicteric. Ear canals was wax obscuring visualization of her TMs. Nares moist no epistaxis. Oropharynx without exudate or injection she has upper and lower dentures in place. Neck is supple nontender she has diminished carotid pulses bilaterally with lateral bruits left worse than the right no overt JVD no thyromegaly no cervical lymphadenopathy Lungs are clear anteriorly but posteriorly she has some bibasilar rales no rhonchi or wheezes Heart is regular rate and rhythm with a harsh grade 5/6 systolic murmur over the aortic outflow tract with a palpable thrill however murmurs also heard across the precordium. Abdomen soft nontender she has a ventral abdominal wall hernia that is easily reducible. No palpable masses no bruits Lower extremities reveal rubor over the lower legs and feet with loss of hair over the feet but palpable pedal pulses bilaterally and no peripheral cyanosis and no edema and no open sores. Neurologic exam grossly intact no focal cranial nerve deficits. Manual muscle testing was limited in her arms due to bilateral shoulder pain in the right shoulder has obvious deformity from her dislocation. She had good handgrip strength in both hands normal wrist strength and normal strength at the elbows. She has normal strength in both feet and lower legs. Results Imaging EKG: image reviewed Labs Result diagrams: 12/15/20 12:05 12/15/20 12:05 Labs: Laboratory Results - last 24 hr 12/15/20 12/15/20 12/15/20 12:05 12:05 15:30 WBC 8.84 RBC 3.42 L Hgb 9.2 L Hct 30.7 L MCV 89.8 MCH 26.9 L MCHC 30.0 L RDW 16.0 H Plt Count 170 MPV 9.9 Immature Gran % 1.0 Neutrophils % 79.1 Lymphocytes % 12.6 Monocytes % 5.2 Eosinophils % 1.8 Basophils % 0.3 Nucleated RBC % 0 Absolute Neutrophils 6.99 H Absolute Lymphocytes 1.11 L Absolute Monocytes 0.46 Absolute Eosinophils 0.16 Absolute Basophils 0.03 Sodium 141 Potassium 4.0 Chloride 102 Carbon Dioxide 33.3 H Anion Gap 5.7 BUN 50 H Creatinine 1.8 H Estimated GFR/1.73 m2 27.07 Glucose 141 H Calcium 9.2 Magnesium 2.0 Total Bilirubin 0.4 AST 17 ALT 21 Alkaline Phosphatase 152 H Troponin I < 0.05 < 0.05 Total Protein 8.0 Albumin 3.8 TSH 0.87 Last Vital Signs Temp 36.3 C L 12/15/20 11:26 Pulse 56 L 12/15/20 11:26 Resp 20 12/15/20 14:00 BP 167/71 H 12/15/20 11:26 Pulse Ox 100 12/15/20 11:50
[2020-12-15] MEDS: traMADol 50 MG TAB PO (18:13)
[2020-12-15 18:37] LABS: Source Nasal/Nares
[2020-12-15] MEDS: Hydrocortisone SOD SUC. 100 MG VIAL 50 MG IVP (21:19)
[2020-12-16] MEDS: Heparin 5,000 UNITS/ML VIAL 5000 UNITS SC ×3 (00:36→16:48)
[2020-12-16 01:18] LABS: COVID-19 PCR Negative (Negative)
[2020-12-16] MEDS: Hydrocortisone SOD SUC. 100 MG VIAL 50 MG IVP ×2 (04:22→11:40)
[2020-12-16] MEDS: ACETAMINOPHEN 1,000 MG/100 ML BTL 400 MG IVPB ×2 (04:24→10:07)
[2020-12-16 04:25] VITALS: BP 139/65; PULSE 57; RESP 18; TEMP 36.9; O2SAT 91
[2020-12-16] MEDS: Levothyroxine 150 MCG TAB PO (06:22)
[2020-12-16 07:09] LABS: Abs Immature Grans 0.05 10^3/uL (0.0-0.06); Absolute Basophil Count 0.02 10^3/uL (0.0-0.2); Absolute Eosinophil Count 0.02 10^3/uL (0.0-0.7); Absolute Lymphocyte Count 0.81 10^3/uL (1.2-3.4); Absolute Monocyte Count 0.31 10^3/uL (0.1-0.8); Absolute Neutrophil Count 6.58 10^3/uL (1.2-6.7); Basophils % 0.3; Eosinophils % 0.3; HCT 29.2 % (36.0-46.0); HGB 8.9 g/dL (11.2-15.7); Immature Grans % 0.6; Lymphocytes % 10.4; MCH 26.4 pg (27.0-33.0); MCHC 30.5 % (32.0-36.0); MCV 86.6 fL (80-95); MPV 10.4 fL (8.0-11.0); Neutrophils % 84.4; Nucleated RBC 0 %; Platelet Count 162 10^3/uL (130-400); RBC 3.37 10^6/uL (3.93-5.22); RDW 15.8 % (11.7-14.6); RDW-SD 49.9 fL; WBC 7.79 10^3/uL (4.4-10.8)
[2020-12-16 07:44] VITALS: BP 171/62; PULSE 50; RESP 16; TEMP 36.4; O2SAT 98
[2020-12-16 07:49] LABS: Anion Gap 5.2 mmol/L (3-11); BUN 47 mg/dL (7-18); CO2 34.8 mmol/L (21.0-32.0); CREATININE 1.6 mg/dL (0.55-1.02); Calcium 8.9 mg/dL (8.5-10.1); Chloride 104 mmol/L (98-107); Estimated GFR 31.01 (mL/min/1.73m2); Ferritin 154 ng/mL (8-252); Glucose 152 mg/dL (74-106); Sodium 144 mmol/L (136-145)
[2020-12-16 07:53] LABS: NT-proBNP 3180 pg/mL (<300)
[2020-12-16 08:02] LABS: Iron 46 ug/dL (50-170); Total Iron Binding Capacity 246 ug/dL (250-450); Transferrin Sat 19 % (15-50)
[2020-12-16 08:21] LABS: Hemoglobin A1C 6.6 % (<5.7)
[2020-12-16 08:32] LABS: Folate 5.2 ng/mL (8.6-20.0); Vitamin B12 764 pg/mL (193-986)
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
[2020-12-16] MEDS: Sertraline 50 MG TAB 200 MG PO (08:49)
[2020-12-16] MEDS: Pramipexole 0.5 MG TAB PO (08:49)
[2020-12-16] MEDS: Ferrous Sulfate 325 MG TAB PO (08:49)
[2020-12-16] MEDS: Loratidine 10 MG TAB PO (08:49)
[2020-12-16] MEDS: Metoprolol CR 100 MG TABCR PO (08:49)
[2020-12-16] MEDS: amLODIPine 5 MG TAB PO (08:49)
[2020-12-16] MEDS: Omeprazole 20 MG CAPCR 40 MG PO (08:49)
[2020-12-16] MEDS: Sucralfate 1 GM TAB PO ×2 (08:49→16:48)
[2020-12-16] MEDS: Cholecalciferol (Vitamin D3) 1,000 UNIT TAB 1000 UNITS PO (08:49)
[2020-12-16] MEDS: Budesonide/Formoterol 80/4.5 6.9 GM 60 PUFF INH IH (09:01)
--- NOTE | 2020-12-16 09:15 | DI.CT_ITS ---
Exam(s) CT UPPER EXTREMITY RT WO EXAM: CT UPPER EXTREMITY RT WO CLINICAL HISTORY: Subacute dislocation TECHNIQUE: Imaging Protocol: Axial computed tomography images with coronal and sagittal reformatted images were created and reviewed. CONTRAST MATERIAL: None COMPARISON: CR XR HUMERUS RT from 12/15/2020 CR XR HUMERUS RT from 12/15/2020 FINDINGS: There is anterior subluxation of the humeral head in the glenoid fossa. The humeral head is subluxed inferomedially as predominately subcoracoid. However, there is approximately 1 cm remaining humeral head in the glenoid fossa. 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 There are multiple small calcified loose bodies in the inferior recess. T here are degenerative cysts in the humeral head. No obvious Hill-Sachs deformity. AC joint appears unremarkable. IMPRESSION: Anterior inferior subluxation of the humeral head in the glenoid fossa. RADIATION DOSE DELIVERED: 1,001.22mGy.cm Total DLP DATA REPOSITORY: All CT scans at this facility are submitted to the National Radiology Data Registry (NRDR) Dose Index Registry (DIR) with the [employer] (ACR). RADIATION OPTIMIZATION: All CT scans at this facility use at least one of these dose optimization te chniques: automated exposure control; mA and/or kV adjustment per patient size (includes targeted exa ms where dose is matched to clinical indication); or iterative reconstruction.
--- NOTE | 2020-12-16 09:30 | DI.RAD_ITS ---
Exam(s) XR SHOULDER RT COMPLETE 2+V EXAM: XR SHOULDER RT COMPLETE 2+V CLINICAL HISTORY: Dislocation. TECHNIQUE: 2D digital imaging was performed. COMPARISON: CR XR shoulder RT comp post reduc from 07/23/2018 FINDINGS: There is anterior subcoracoid dislocation of humeral head relative to the glenoid fossa. IMPRESSION: DATA REPOSITORY: RADIATION DOSE DELIVERED:
--- NOTE | 2020-12-16 09:52 | NT_ITS ---
Date of service: 12/16/20 Time of Service: 09:52 PT Notes Visit Reasons: Right Shoulder Dislocation,Right Shoulder Pain Patient with dislocation of R shoulder sustained from a fall. Reports 8/10 at rest. Will hold off on PT evaluation until patient is seen by orthopedic surgeon prior to mobilization out of bed. Thank you for the opportunity to participate in the care of this patient. Jacki Gonsalves PT, DPT, CLT [facility] [place], [place]
--- NOTE | 2020-12-16 10:58 | INITIAL_ITS ---
- If Service Date Differs Date of service: 12/16/20 Time of Service: 10:58 Care Management Initial Assess REASON FOR HOSPITALIZATION:: Right shoulder dislocation, right shoulder pain PAST MEDICAL HISTORY/PAST SURGICAL HISTORY:: Medical History (Updated 12/15/20 @ 22:16 by Darian Lucero). Acute prerenal azotemia. Altered mental state. Anemia. Anxiety. Aortic stenosis, moderate (~07/2017). Asthma. Chronic hypoxemic respiratory failure and patient is on 2 liters of oxygen chronically at rest and 3 liters with exertion. Bilateral shoulder pain. rotator cuff tears plus OA? CAD (coronary artery disease). CABG approximately ten years ago; recently cardiac cath with single stent placement on [place] portion [place] [facility] [place] Nav[place] patient. CHF (congestive heart failure). HFPEF w/ LVEF 65% per echo from 04/24/2019. RV is dilated w/ apical hypokinesis, biatrial enlargement, moderate aortic stenosis, severe PHTN (RVSP 75 TO 80 MM). Cholelithiasis without cholecystitis. Chronic GERD. CKD (chronic kidney disease), stage III. Baseline creatine 1.1 to 1.3. Compression fracture of L1 lumbar vertebra (~07/2017). Decreased performance of ADLs. Decreased range of motion. bilateral shoulders. Decubital ulcer. Discharge planning issues. Edema due to congestive heart failure. Falls frequently. Frailty syndrome in geriatric patient. Goals of care, counseling/discussion. Hernia of abdominal wall. recurrent problem; LUQ Mar 2020. Hx of CABG (~2000). 2000. Hypothyroidism. Lives alone with help available. 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 daughter lives near by. Low back pain. LVH (left ventricular hype rtrophy). Morbid obesity. Obesity (BMI 30.0-34.9). Open wound of scapular region without complication. Palliative care patient. Peripheral vascular disease. Pneumonia. Polymyalgia rheumatica. Pulmonary embolism. PVD (peripheral vascular disease). Type 2 diabetes mellitus. On insulin. Unintentional weight loss. Vascular dementia. mild. Venous stasis dermatitis of both lower extremities. Vitamin B 12 deficiency. Weight gain with edema PREVIOUS FUNCTIONAL STATUS/SOCIAL/FAMILY SUPPORTS:: Lucy lives alone in [place]. 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 Lucy does not drive but has a car that her friend Ivelisse uses to transport her. Ivelisse lives 10 minutes away from her and is very supportive of her needs. Lucy has a daughter (Maribel)and a son (Michael) who live next door to her and they also take turns with her care needs. CURRENT FUNCTIONAL STATUS:: Lucy was sitting up in bed when CM met with her. She was alert and oriented X3, pleasant and easily engaged in conversation. She reported that her pain is well controlled and she is anticipating going to the OR today for repair and is now waiting to talk with anesthesia. ADVANCE DIRECTIVES:: None, Refuses Blank Copy Has patient been provided with info about the portal/API?: Yes Did the patient sign up for the portal?: No CODE STATUS:: Full Code INSURANCE COVERAGE / FINANCIAL ISSUES:: Medicaid. Medicare CURRENT HOME/COMMUNITY SERVICES/EQUIPMENT:: [facility]. Has a private homemaker daily from 8-1pm. Uses a [facility] PRIMARY CARE PHYSICIAN:: Dr. Perry Graham POTENTIAL DISCHARGE NEEDS:: Resumption [facility], Follow up appointments with Ortho and PCP. PATIENT/FAMILY EDUCATION NEEDS:: Review discharge instructions, limitations and discharge plan of care as prescribed. Ask me three. ANTICIPATED BARRIERS TO DISCHARGE:: None identified at this time. TRANSPORTATION:: Via private vehicle with daughter Maribel or friend Ivelisse. PLAN:: Anticipate Lucy will discharge home with resumption of [facility] via private vehicle with family. She will follow up with Ortho, PCP and discharge plan of care as prescribed.
--- NOTE | 2020-12-16 15:41 | CHAPLAIN ---
Lucy was in bed when I visited. She told me that her shoulder is dislocated and she's waiting to go to surgery today. She said she's been here since yesterday and was told she'd have surgery this morning, but has seen anyone yet. She was waiting for someone from anesthesia to come talk with her because, according to Lucy, she is allergic to anesthesia. Lucy lives in [place]. Her daughter lives nearby. She said her sister was recently diagnosed with Alzheimer's Disease, and recently had her license taken away. Lucy that she is very troubled by her sister's recent diagnosis.
--- NOTE | 2020-12-16 16:11 | DSE_ITS ---
Date of service: 12/16/20 Time of Service: 16:11 DS: Diagnosis Discharge Diagnosis (1) Dislocation of right shoulder joint: Status: Chronic (2) Costochondritis: Status: Acute (3) Ambulatory dysfunction: Status: Chronic (4) CAD (coronary artery disease): Status: Chronic (5) CHF (congestive heart failure): Status: Chronic (6) Aortic stenosis, moderate: Status: Chronic (7) Type 2 diabetes mellitus: Status: Chronic (8) Anemia: Status: Chronic (9) CKD (chronic kidney disease), stage III: Status: Chronic (10) Polymyalgia rheumatica: Status: Chronic (11) PVD (peripheral vascular disease): Status: Chronic (12) Chronic GERD: Status: Acute (13) COVID-19 ruled out by laboratory testing: Status: Ruled-out Discharge Plan Disposition Patient Disposition: HOME W/HOME HEALTH SERVICE Condition: Fair Discharge Details Reason For Visit: Right Shoulder Dislocation,Right Shoulder Pain Admit Date/Time: 12/15/20 17:23 Admit Provider: Darian Lucero Attending Provider: Darian Lucero Primary Care Provider: Perry Graham [facility] Course Hospital Course: Ms Vinson is an 80 year old female with h/o a fall 5 years ago who also has a h/o HFpEF, CAD s/p CABG x2, CKD, PMR on chronic prednisone, who was observed on [facility] hospitalist service for acute on chronic right shoulder pain due to a chronic dislocation of her R shoulder. Per orthopedics (Dr Tma), the patient is not a surgical candidate at our facility (due to her severe aortic stenosis), and the symptoms following any surgical intervention would result in worsening function of the RUE. For this reason, the patient will be managed with medications and, if she decides she wants to pursue surgery, she would have to be referred to a tertiary care orthopedic service as she is considered to be too high risk for our anesthesia team to have the procedure performed here. The patient's daughter verbalized fears of the patient taking pain medications at home at night while living by herself. We agreed that the daughter would spend the night at her mother's house tonight to monitor her for safety. The patient is being discharged home with a prescription for tramadol. She is being discharged home with a referral for home health nursing, PT, OT, PAN GREASER. Care for patient as well as completion of her discharge summary on day of discharge took 45 minutes. Home Meds and New Rx's Prescriptions: New acetaminophen [Tylenol Extra Strength] 500 mg tablet 1,000 mg PO Q8H Qty: 180 RF: 0 oxycodone 5 mg tablet 2.5 mg PO TID PRNQty: 6 RF: 0 folic acid 1 mg tablet 1 mg PO DAILY Qty: 30 RF: 0 Continued Brilinta 90 MG tablet 90 mg PO BID RF: 0 sucralfate [Carafate] 1 gram Tablet 1 g PO QID RF: 0 sertraline 100 MG tablet 200 mg PO DAILY RF: 0 levothyroxine [Synthroid] 150 MCG tablet 150 mcg PO DAILY AM RF: 0 spironolactone 25 MG tablet 25 mg PO DAILY AM RF: 0 prednisone 5 mg tablet 10 mg PO DAILY RF: 0 ferrous sulfate 325 mg (65 mg iron) Tablet 325 mg PO DAILY RF: 0 fentanyl 12 mcg/hr Patch 72 Hour 1 patch TRANSDERMAL Q48H RF: 0 ipratropium-albuterol 0.5 mg-3 mg(2.5 mg base)/3 mL solution for nebulization 3 ml INHALATION Q4H PRN PRN (Reason: Shortness Of Breath) RF: 0 dicyclomine 20 mg Tablet 20 mg PO QID PRN PRN (Reason: Abdominal Pain) RF: 0 pramipexole 1 mg tablet 0.5 mg PO BID RF: 0 amlodipine 5 mg Tablet 5 mg PO DAILY RF: 0 omeprazole 40 mg capsule,delayed release(DR/EC) 40 mg PO BID RF: 0 fluticasone propion-salmeterol [Advair Diskus] 100-50 mcg/dose blister with device 1 inh INHALATION BID RF: 0 Acidophilus Tablet,Chewable 1 tab PO DAILY RF: 0 levalbuterol tartrate [Xopenex HFA] 45 mcg/actuation HFA aerosol inhaler 2 puff INHALATION Q4H PRN PRN (Reason: Wheezing) RF: 0 cholecalciferol (vitamin D3) [Vitamin D3] 25 mcg (1,000 unit) tablet 1,000 unit PO DAILY RF: 0 nitroglycerin 0.4 mg Tablet, Sublingual 0.4 mg SUBLINGUAL Q5M PRNRF: 0 loratadine 10 mg Tablet 10 mg PO DAILY RF: 0 bumetanide 1 mg tablet 2 mg PO BID RF: 0 metoprolol succinate 100 mg Tablet Extended Release 24 Hr 100 mg PO DAILY RF: 0 atorvastatin 20 mg Tablet 20 mg PO QHS RF: 0 Discharge Instructions Instructions: Oxycodone, Rapid Release (By mouth), Costochondritis (DC), Shoulder Pain (ED) Additional Instructions: Return to the hospital with any uncontrolled pain, if you have any fever, bleeding, chest pain, shortness of breath. Follow up with your PCP within 1-2 weeks. Care Plan Goals: Home with home health RN, PT, OT, PAN GREASER. Referrals: Perry Graham [Primary Care Provider] - Activity:: Activity as Tolerated Equipment/Supplies:: No Equipment Needed Diet:: As Tolerated Discharge Orders Discharge Orders: Discharge Order (Routine); Ordered 12/16/20 Ordered By: Johnna Guerrero DS: Summary Time Spent with Patient providing and/or coordinating discharge services: Greater than 30 minutes Status at Discharge Functional status at discharge: uses cane/walker Overall status at discharge: patient is back to baseline Mental Status: mental status grossly normal Speech and Movement: speech and movement normal Mood: congruent mood Affect: normal affect Exam Narrative Exam Narrative: General: A&Ox3, NAD, laying seemingly comfortable in bed HEENT: EOMI, MMM Heart: RRR, no m/r/g Lungs: CTAB Abdomen: soft, nontender, nondistended Extremities: no edema BLE's Psych Mental Status: mental status grossly normal Speech and Movement: speech and movement normal Affect: normal affect DS: Data Vitals/I&O Vitals and I&O: Vital Signs Temperature 36.4 C L 12/16/20 07:44 Temperature Source Temporal Artery Scan 12/16/20 07:44 Pulse 50 L 12/16/20 07:44 Pulse Rhythm Regular 12/16/20 04:33 Pulse 57 L 12/15/20 14:23 Respiratory Rate 16 12/16/20 07:44 Respiratory Effort 12/16/20 04:33 Respiratory Depth Normal 12/16/20 04:33 Respiratory Pattern Normal 12/16/20 04:33 Blood Pressure 171/62 H 12/16/20 07:44 Blood Pressure Mean 74 12/15/20 16:06 Blood Pressure Position Supine 12/15/20 11:26 Pulse Oximetry 98 12/16/20 07:44 Oxygen Delivery Method Nasal Cannula 12/16/20 07:44 Oxygen Flow Rate 2 12/16/20 07:44 Pain Level 0 12/16/20 07:44 Comment 12/15/20 23:24 Intake & Output 12/15/20 12/16/20 12/16/20 23:59 11:59 23:59 Intake Total 280 / 280 Output Total 150 / 250 100 / 250 Balance 130 / 30 -100 / 30 Weight 82.236 kg 82.3 kg Intake: IV 100 / 100 Oral 180 / 180 Output: Urine 150 / 250 100 / 250 Other: Urine Color Yellow Yellow Urine Appearance Clear Clear Urine Odor None Normal Voiding Methods Toilet Toilet Data Completed and Pending Completed studies during hospitalization [Text1]: CT abdomen/pelvis: 1. Cholelithiasis. Difficult to assess for cholecystitis given the amount of motion here. CBD is not obviously dilated. 2. Anterior abdominal wall fat containing hernia measuring 25 x 30 millimeters. No bowel loops therein. No bowel obstruction 3. Non acute appearing compression fractures of L1-L3. XR humerus: There is dislocation of the humeral head relative to the glenoid fossa. This is anterior dislocation. No obvious fracture evident. Thoracic spine CT: Compression fracture of L1 noted, approximately 60 percent. This is unchanged from CT scan of 05/10/2019. Compression fracture superior endplate level of T7 also again noted and unchanged. Indentation of superior endplate of T5 is also unchanged. No evidence of acute compromise of the thoracic spinal column. No new additional fractures evident. No significant listhesis. CT R shoulder: Anterior inferior subluxation of the humeral head in the glenoid fossa. XR shoulder 2 view R: There is anterior subcoracoid dislocation of humeral head relative to the glenoid fossa. Preliminary read echo: severe . Pending studies at discharge: Echo official read Labs on day of discharge: Labs from last 24 hours 12/16/20 12/16/20 12/16/20 06:25 06:25 06:25 WBC RBC Hgb Hct MCV MCH MCHC RDW Plt Count MPV Immature Gran % Neutrophils % Lymphocytes % Monocytes % Eosinophils % Basophils % Nucleated RBC % Absolute Neutrophils Absolute Lymphocytes Absolute Monocytes Absolute Eosinophils Absolute Basophils Sodium Potassium Chloride Carbon Dioxide Anion Gap BUN Creatinine Estimated GFR/1.73 m2 Glucose Hemoglobin A1c 6.6 H Calcium Iron 46 L TIBC 246 L Transferrin % Sat 19 Ferritin Troponin I NT-Pro-B Natriuret Pep 3180 H Vitamin B12 764 Folate 5.2 L COVID-19 Source SARS-CoV-2 (PCR) 12/16/20 12/16/20 12/15/20 06:25 06:25 18:32 WBC 7.79 RBC 3.37 L Hgb 8.9 L Hct 29.2 L MCV 86.6 D MCH 26.4 L MCHC 30.5 L RDW 15.8 H Plt Count 162 MPV 10.4 Immature Gran % 0.6 Neutrophils % 84.4 Lymphocytes % 10.4 Monocytes % 4.0 Eosinophils % 0.3 Basophils % 0.3 Nucleated RBC % 0 Absolute Neutrophils 6.58 Absolute Lymphocytes 0.81 L Absolute Monocytes 0.31 Absolute Eosinophils 0.02 Absolute Basophils 0.02 Sodium 144 Potassium 4.0 Chloride 104 Carbon Dioxide 34.8 H Anion Gap 5.2 BUN 47 H Creatinine 1.6 H Estimated GFR/1.73 m2 31.01 Glucose 152 H Hemoglobin A1c Calcium 8.9 Iron TIBC Transferrin % Sat Ferritin 154 Troponin I NT-Pro-B Natriuret Pep Vitamin B12 Folate COVID-19 Source Nasal/Nares SARS-CoV-2 (PCR) Negative 12/15/20 15:30 WBC RBC Hgb Hct MCV MCH MCHC RDW Plt Count MPV Immature Gran % Neutrophils % Lymphocytes % Monocytes % Eosinophils % Basophils % Nucleated RBC % Absolute Neutrophils Absolute Lymphocytes Absolute Monocytes Absolute Eosinophils Absolute Basophils Sodium Potassium Chloride Carbon Dioxide Anion Gap BUN Creatinine Estimated GFR/1.73 m2 Glucose Hemoglobin A1c Calcium Iron TIBC Transferrin % Sat Ferritin Troponin I < 0.05 NT-Pro-B Natriuret Pep Vitamin B12 Folate COVID-19 Source SARS-CoV-2 (PCR) [facility] Medical History (Updated 12/16/20 @ 16:26 by Johnna Gurerero MD) Acute prerenal azotemia Altered mental state Anemia Anxiety Aortic stenosis, moderate (~07/2017) Asthma Chronic hypoxemic respiratory failure and patient is on 2 liters of oxygen chronically at rest and 3 liters with exertion. Bilateral shoulder pain rotator cuff tears plus OA? CAD (coronary artery disease) CABG approximately ten years ago; recently cardiac cath with single stent placement [place] [facility] [place] Navarro follows patient. CHF (congestive heart failure) HFPEF w/ LVEF 65% per echo from 04/24/2019. RV is dilated w/ apical hypokinesis, biatrial enlargement, moderate aortic stenosis, severe PHTN (RVSP 75 TO 80 MM) Cholelithiasis without cholecystitis Chronic GERD CKD (chronic kidney disease), stage III Baseline creatine 1.1 to 1.3 Compression fracture of L1 lumbar vertebra (~07/2017) Decreased performance of ADLs Decreased range of motion bilateral shoulders Decubital ulcer Discharge planning issues Edema due to congestive heart failure Falls frequently Frailty syndrome in geriatric patient Goals of care, counseling/discussion Hernia of abdominal wall recurrent problem; LUQ Mar 2020 Hx of CABG (~2000) 2000 Hypothyroidism Lives alone with help available has 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 Unintentional weight loss Vascular dementia mild Venous stasis dermatitis of both lower extremities Vitamin B 12 deficiency Weight gain with edema Surgical History (Updated 12/15/20 @ 21:56 by Darian Lucero) H/O hernia repair S/P CABG x 2 Status post revision of total replacement of both knees Family History Daughter Diabetes Son Diabetes Obesity Mother , age 49 of breast cancer Breast cancer Father , age 68 of stroke Stroke Hypertension Sister Seizure disorder Sister , from complications of her RA, Lucy not clear how Rheumatoid arthritis Brother Leukemia Brother Heart disease Sister Dementia Social History Smoking/Tobacco Use Status: Never Second Hand Exposure: No Smoking risk assessment performed?: Yes Alcohol Intake: never Drug use: Never Substance use type: does not use Caregiver/Support person: Yes (during the day) Household members: other Details: hired young woman for 5 hrs/day, 5 days/wk; family around too Housing: house Number of Children: 2 number of grandchildren: 5 Communication Needs: Hard of Hearing and Corrective Lenses Education Level: high school Do you need help understanding health information?: Always 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, 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, 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 Pets and animals: Yes Pets and animals: cat(s) Current gender identity: female What is your relationship status?: How often do you talk on the phone with friends or family?: three or more times per week How often do you get together with friends or relatives?: three or more times per week Panel score (0-1 are the most socially isolated patients): 1 What type of physical activity do you participate in: none and sedentary lifestyle Special toi needs: No Agree to transfusion: Yes Seatbelt use: always Working smoke detector in home: Yes Fire extinguisher in home: Yes Do you feel safe at home: Yes Do you feel safe in your relationship?: Yes Additional Social history: Lives alone in her own home since February 2018. Prior to that was living with her daughter for about a year. She was at a long-term in [place] prior to moving in with her daughter. NEVER wants to go to a long-term again. Never wants to go to [facility]. Definitely the matriarch of her family. Has help now from Sarah, who helps her with ADLs. Keeps on eye on her diet. has assistance 5 days per week now.
--- NOTE | 2020-12-16 17:02 | PT.INIE ---
Date of service: 12/16/20 Time of Service: 09:52 PT Notes Visit Reasons: Right Shoulder Dislocation,Right Shoulder Pain Physical Therapy Inpatient Initial Evaluation Date: 12/16/2020 Referring Doctor: Darian Lucero MD PT Orders: PT CONSULT: Exacerbation chronic cond. Evaluate and treat shoulder pain Precautions: Fall. Standard. WBAT on R UE per orthopedic surgeon. Patient Profile/Admitting Diagnosis: Lucy is an 80-year-old female who presented to the ED on 12/15/2020 due to right shoulder pain sustained from a fall 3 weeks ago, shortness of breath, and chest as well as abdominal pain. Patient is diagnosed with dislocation of the right shoulder and ambulatory dysfunctio with referral to address shoulder pain. PMHX: Medical History (Updated 12/15/20 @ 22:16 by Darian Lucero) Acute prerenal azotemia Altered mental state Anemia Anxiety Aortic stenosis, moderate (~07/2017) Asthma Chronic hypoxemic respiratory failure and patient is on 2 liters of oxygen chronically at rest and 3 liters with exertion. Bilateral shoulder pain rotator cuff tears plus OA? CAD (coronary artery disease) CABG approximately ten years ago; recently cardiac cath with single stent placement on inferior portion of heart down [place] [facility] [place]. Navarro follows patient. CHF (congestive heart failure) HFPEF w/ LVEF 65% per echo from 04/24/2019. RV is dilated w/ apical hypokinesis, biatrial enlargement, moderate aortic stenosis, severe PHTN (RVSP 75 TO 80 MM) Cholelithiasis without cholecystitis Chronic GERD CKD (chronic kidney disease), stage III Baseline creatine 1.1 to 1.3 Compression fracture of L1 lumbar vertebra (~07/2017) Decreased performance of ADLs Decreased range of motion bilateral shoulders Decubital ulcer Discharge planning issues Edema due to congestive heart failure Falls frequently Frailty syndrome in geriatric patient Goals of care, counseling/discussion Hernia of abdominal wall recurrent problem; LUQ Mar 2020 Hx of CABG (~2000) 2000 Hypothyroidism Lives alone with help available has ACCOUNTANT 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 Unintentional weight loss Vascular dementia mild Venous stasis dermatitis of both lower extremities Vitamin B 12 deficiency Weight gain with edema Surgical History (Updated 12/15/20 @ 21:56 by Darian Lucero) H/O hernia repair S/P CABG x 2 Status post revision of total replacement of both knees Social History/Home Situation: Lives alone in a private home with a ramp to enter. Has caregivers for support during the day, alone at night. Independent with indoor ambulation using 4 wheeled walker. Family and caregiver takes care of meals. Has emergency alert device. Equipment Owned/DME: 4WW, BS Subjective: Initially reports 8/10 pain in the right shoulder when first seen this morning. This afternoon reports 5/10 pain in the right shoulder with weight bearing. Objective: General Observation: Seated at edge of bed. Daughter and son-in-law present in room. Mental Status: Alert and oriented as to person, place, time, and purpose. Able to pay attention, focus, and respond appropriately. Pain: 5/10 in right shoulder ROM: Right Upper Extremity: Shoulder Flexion only about 10 degrees actively with pain at end range of motion. Shoulder abduction about 20 degrees with pain at end range of motion. Elbow flexion WFL. Wrist flexion WFL. Functional opening and closing of hand WFL. Left Upper Extremity: Shoulder Flexion WFL. Shoulder abduction WFL. Elbow flexion WFL. Wrist flexion WFL. Functional opening and closing of hand WFL. Right Lower Extremity: Hip flexion WFL. Hip abduction WFL. Knee flexion WFL. Ankle dorsiflexion WFL. Ankle plantarflexion WFL. Left Lower Extremity: Hip flexion WFL. Hip abduction WFL. Knee flexion WFL. Ankle dorsiflexion WFL. Ankle plantarflexion WFL. Strength: Right Upper Extremity: Shoulder flexors 3-/5. Shoulder abductors 3-/5. Elbow flexors 4/5. Elbow extensors 4/5. Geotechnical Department Manager strong. Left Upper Extremity: Shoulder flexors 4-/5. Shoulder abductors 4-/5. Elbow flexors 4/5. Elbow extensors 5/5. Geotechnical Department Manager strong. Right Lower Extremity: Hip flexors 4/5. Hip abductors 4/5. Knee flexors 4/5. Knee extensors 4/5. Ankle dorsiflexors 4/5. Ankle plantarflexors 4/5. Left Lower Extremity: Hip flexors 4/5. Hip abductors 4/5. Knee flexors 4/5. Knee extensors 4/5. Ankle dorsiflexors 4/5. Ankle plantarflexors 4/5. Bed Mobility/Transfers: Sit to stand standby assist Stand to sit standby assist Gait: Instructed patient with level surface ambulation of 75 feet requiring standby assist assist, weight bearing as tolerated on the right UE using front wheel walker malou decreased. Reports pain in the right shoulder at 5/10. Balance: Static Sitting: Normal Dynamic Sitting: Good Static Standing: Fair Dynamic Standing: Fair Special Tests: Mobility Limitations Standardized Measure [facility] AM-PAC 6 clicks Basic Mobility Inpatient Short Form: Raw Score: 23 CMS Score: 11% deficit Informed Consent/Education: Patient was instructed in purpose of PT consult and plan of care. Agreeable to proceed with established PT POC to achieve personal goals. Assessment: Patient was advised to use a front wheeled walker at this time due to pain report in the right UE as using the rollator at home may exacerbate pain increase fall risk. FWW provided for patient prior to discharge. Patient presents with clinical signs and symptoms consistent with current/admitting diagnoses that have resulted to mobility limitations, gait instability, generalized weakness, and overall ADL decline as demonstrated by the following impairment level findings: 1. Decreased strength to right UE major muscle groups 2. Impaired sitting/standing balance 3. Impaired activity tolerance 4. Limitation of joint range of motion in right UEs 5. Shortness of breath 6. Pain in R UE Impairments are contributing to the following functional limitations: 1. Decline in bed mobility skills 2. Decline in transfer skills 3. Difficulty with ambulation without assistive device 4. Increased completion time for mobility ADL performance 5. Increased risk for falls Patient is assessed as a 53890 moderate complexity based on the following: History: 80-year-old female with past medical history as indicated above Examination: Demonstrable impairment in strength, balance, and mobility level with underlying impairments and functional limitations as exhibited above as well as deficit score of 23% utilizing the [facility] Mobility Inpatient Short Form Presentation: Evolving Decision Makin moderate complexity Goals: N/A. PT evaluation and 1 treatment session only for functional mobility training using front wheeled walker. Plan of Care/Treatment Plan: N/A. PT evaluation and 1 treatment session only for functional mobility training using front wheeled walker. DISCHARGE RECOMMENDATIONS: Home when medically cleared by hospitalist. Outpatient PT services in order to address pain, range of motion, and strength deficits in the right shoulder. TREATMENT CODE/TIME: 57369 x 18 minutes beginning at 5:02 PM. Thank you for the opportunity to participate in the care of this patient. Jacki Gonsalves PT, DPT, CLT [facility] [place], [place]
--- NOTE | 2020-12-16 17:31 | PDOC.HHF2F ---
Home Health Certification Home Health Certification: 1. Encounter Date and Reason I certify that Lucy Vinson was seen by Johnna Guerrero on 12/16/20 and that I had a [id number] encounter with this patient that meets the physician face to face encounter requirements. 2. Clinical Findings Supporting Skilled Need and Homebound Status I certify that home health services are medically necessary, include either intermittent intermediate and/or physical/speech therapy, and that this patient is homebound in that absences from the home require considerable and taxing effort and are infrequent or of short duration, or are attributable to the need to receive medical care. [X] (a) Attached documentation from encounter provides clinical findings supporting skilled need and homebound status (including what assistance patient requires to leave the home). The encounter with the patient was in whole, or in part, for the following medical condition, which is the primary reason for home health care: Right Shoulder Dislocation,Right Shoulder Pain Intermediate: severe , chronic pain, concerns for ambulatory dysfunction related to pain medications at home Physical Therapy: eval and treat Occupational Therapy: eval and treat FLY RAISER LOCKSTITCH: evaluate the need for resources in the community Homebound: unable to leave home without assistance 3. Certification and Authentication I certify that I composed the above information based on my clinical judgement relating to this patient's medical condition and, if applicable, clinical findings communicated to me by the NPP or inpatient physician who performed the Home Health Referral. All further orders will be obtained through Dr Graham (Community Based Physician - PCP)
--- NOTE | 2020-12-16 18:32 | PDOC.CMDIS ---
- If Service Date Differs Date of service: 12/16/20 Time of Service: 18:32 LACE Index Scoring Tool - Questions: Length of Stay (in days): 1 Acuity (Admit via E.D.?): Yes Comorbidities: PVD, Congestive Heart Failure E.D. Visits: 5 - Answers: Total Score: 11 Risk of Readmission: High Risk Care Management Discharge Reason for Hospitalization: Right shoulder dislocation, right shoulder pain Discharge Plan: Discharge home with resumption of H SN/PT via private vehicle with daughter Maribel. Maribel agrees to stay with her mother short term. CM recommended Maribel plan a family meeting surrounding her mother's correction living arrangements as ideally they would like Lucy to have a live in neonatal intensive care nurse. They have a worker at [facility] that they are planning on connecting with tomorrow. Lucy will follow up with her community providers and discharge plan of care as prescribed. Patient/Family Education Needs: Review discharge instructions, limitations and plan to follow up with community providers. ask me three. Services Needed at Discharge: Home Health Care Services (H SN/PT)
--- NOTE | 2020-12-16 22:24 | W.ORTHOCONSU ---
Date of service: 12/16/20 Time of Service: 15:42 History of Present Illness History of Present Illness Chief Complaint: Right Shoulder Pain Narrative: Lucy is an 80-year-old female who presented to the emergency department on December 15 with multiple complaints including chest pain and low back pain but also right shoulder pain. She reported that she had a fall 3 or 4 weeks ago with an increase in right shoulder pain. She was taken for an x-ray which at that time showed a dislocated right glenohumeral joint. She was admitted to the medical service for her multiple complaints and for potential preoperative planning given the dislocation of the right shoulder. Unfortunately, she has multiple medical issues including significant heart disease which in essence precludes any general anesthesia. In the work-up of this a CT scan was also obtained of the right shoulder to assess the position of the shoulder, any chronic changes, and potential treatment options. In further discussion with the patient she reports having a really bad fall about 5 years ago. Since that time she has had significant worsening of right shoulder pain. However, predating that fall she has had longstanding issues with her bilateral shoulders and has received injections, especially in the right shoulder. She does not report that the injections provided any significant relief. Since the fall 4 weeks ago she has had increase in pain but actually no significant change in her function. She does have difficulty with try to get her arm up to her head. However, she is able to take care of herself with hygiene purposes as well as feed herself and use the right arm for activities of daily living. She reports having very little strength and pain when she does try to do something with it but still is able to use it for basic functions. She is a minimal ambulator only going from chair to bathroom at her home with assistance. She also complains of rib pain at the costochondral junction as well as breast type pain. Throughout the interview she refers to other pains that she is having and has had. It seems that she also loses track of timeline as she will reference old injuries as new injuries. Consults Consult date: 12/15/20 Requesting physician: Darian Lucero Consult Reason Chronic right shoulder dislocation Assessment and Plan Assessment and plan (1) Dislocation of right shoulder joint: Status: Chronic Qualifiers: Encounter type: initial encounter Qualified Code(s): S43.004A - Unspecified dislocation of right shoulder joint, initial encounter (2) Arthritis of right glenohumeral joint: Status: Acute Assessment and plan: Lucy is an 80-year-old who has a chronic dislocation of the right shoulder. I was very honest with Lucy and her family that this did not happen 3 weeks ago. This is likely many years in the making. The chronic changes seen with the change in contour of the glenoid as well as the bridging osteophytes would suggest that this has been in this location for many years. She likely injured it when she landed on it because it is [id number] arthritis of the right shoulder and an inappropriate position. However, there is no quick fix. Given the deformity of the glenoid with at least an 82 glenoid with loss of anterior bone and a chronically dislocated shoulder towards the front and a likely longstanding chronic rotator cuff tear, there is no surgery which should has any significant success rate. An open procedure to reduce the shoulder, stabilize the shoulder and thus likely placed a reverse total shoulder implant will be fraught with complication even in the healthiest of patients. The medicine team was quite clear that her risk for general anesthesia is significantly high. She mentions multiple times that she is not worried about her heart. However, she has objective evidence to suggest otherwise. I was able to observe her using the shoulder and my suspicion is that the shoulder has been bad for many years and trying to fix anything now would be not worthwhile. She has minimal demands at home and should continue to use the shoulder as tolerated. No formal restrictions. She may weight-bear as tolerated on the right shoulder. It is in essence creating a new shoulder joint in a different location. I did discuss injections as a potential option for pain control but she has had those in the past and therefore I do not think, especially with the amount of degenerative changes seen, this will make significant improvements. She has many aches and pains elsewhere across her body and thus a more systemic approach is likely the best option. There is no need for formal follow-up at this time unless there is any critical change in her function. Review of Systems All systems reviewed & are unremarkable except as noted in HPI and below [facility] Medical History Acute prerenal azotemia Altered mental state Anemia Anxiety Aortic stenosis, moderate (~07/2017) Asthma Chronic hypoxemic respiratory failure and patient is on 2 liters of oxygen chronically at rest and 3 liters with exertion. Bilateral shoulder pain rotator cuff tears plus OA? CAD (coronary artery disease) CABG approximately ten years ago; recently cardiac cath with single stent placement on [place] portion [place] [facility] [place] Navarro follows patient. CHF (congestive heart failure) HFPEF w/ LVEF 65% per echo from 04/24/2019. RV is dilated w/ apical hypokinesis, biatrial enlargement, moderate aortic stenosis, severe PHTN (RVSP 75 TO 80 MM) Cholelithiasis without cholecystitis Chronic GERD CKD (chronic kidney disease), stage III Baseline creatine 1.1 to 1.3 Compression fracture of L1 lumbar vertebra (~07/2017) Decreased performance of ADLs Decreased range of motion bilateral shoulders Decubital ulcer Discharge planning issues Edema due to congestive heart failure Falls frequently Frailty syndrome in geriatric patient Goals of care, counseling/discussion Hernia of abdominal wall recurrent problem; LUQ Mar 2020 Hx of CABG (~2000) 2000 Hypothyroidism Lives alone with help available has RED MUD THICKENER OPERATOR from 8 am to 1 pm daughter lives near by Low back pain LVH (left ventricular hypertrophy) Morbid obesity Obesity (BMI 30.0-34.9) Open wound of scapular region without complication Palliative care patient Peripheral vascular disease Pneumonia Polymyalgia rheumatica Pulmonary embolism PVD (peripheral vascular disease) Type 2 diabetes mellitus On insulin. Unintentional weight loss Vascular dementia mild Venous stasis dermatitis of both lower extremities Vitamin B 12 deficiency Weight gain with edema Surgical History H/O hernia repair S/P CABG x 2 Status post revision of total replacement of both knees Family History Daughter Diabetes Son Diabetes Obesity Mother , age 49 of breast cancer Breast cancer Father , age 68 of stroke Stroke Hypertension Sister Seizure disorder Sister , from complications of her RA, Lucy not clear how Rheumatoid arthritis Brother Leukemia Brother Heart disease Sister Dementia Social History Smoking/Tobacco Use Status: Never Second Hand Exposure: No Smoking risk assessment performed?: Yes Alcohol Intake: never Drug use: Never Substance use type: does not use Caregiver/Support person: Yes (during the day) Household members: other Details: hired young woman for 5 hrs/day, 5 days/wk; family around too Housing: house Number of Children: 2 number of grandchildren: 5 Communication Needs: Hard of Hearing and Corrective Lenses Education Level: high school Do you need help understanding health information?: Always 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, 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, 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 Pets and animals: Yes Pets and animals: cat(s) Current gender identity: female What is your relationship status?: How often do you talk on the phone with friends or family?: three or more times per week How often do you get together with friends or relatives?: three or more times per week Panel score (0-1 are the most socially isolated patients): 1 What type of physical activity do you participate in: none and sedentary lifestyle Special toi needs: No Agree to transfusion: Yes Seatbelt use: always Working smoke detector in home: Yes Fire extinguisher in home: Yes Do you feel safe at home: Yes Do you feel safe in your relationship?: Yes Additional Social history: Lives alone in her own home since February 2018. Prior to that was living with her daughter for about a year. She was at a usp in [place] prior to moving in with her daughter. NEVER wants to go to a usp again. Never wants to go to [facility]. Definitely the matriarch of her family. Has help now from Sarah, who helps her with ADLs. Keeps on eye on her diet. has assistance 5 days per week now. Exam Narrative Exam Narrative: Sitting up in the hospital bed. A cursory exam was performed as she was quite comfortable and conversing with myself and hospitalist, Dr. Guerrero. She was observed to be using the right arm while she talked and adjusted her blankets. She was able to abduct approximately 45 degrees. She is also able to reach her hand to her mouth and scratch her face and observation. There is no notable objective discomfort seen in doing this particular motion. She also had intact elbow flexion extension as well as full hand and wrist range of motion, once again observation. She did have pain to palpation throughout the anterior aspect the shoulder and a palpable defect was felt over the posterior aspect of the shoulder girdle. There is crepitus with range of motion but there is still some preserved range of motion of the humeral head was not completely locked. There is no overlying skin defect except for prominence of the anterior shoulder where the humeral head was riding underneath the coracoid. There was nodularity at the costochondral junction, most on the left rather than the right, which was painful to palpation. Results Last Vital Signs Temp 36.4 C L 12/16/20 07:44 Pulse 50 L 12/16/20 07:44 Resp 16 12/16/20 07:44 BP 171/62 H 12/16/20 07:44 Pulse Ox 98 12/16/20 07:44 Labs Result diagrams: 12/16/20 06:25 12/16/20 06:25 Labs: Laboratory Results - last 24 hr 12/16/20 12/16/20 12/16/20 06:25 06:25 06:25 WBC 7.79 RBC 3.37 L Hgb 8.9 L Hct 29.2 L MCV 86.6 D MCH 26.4 L MCHC 30.5 L RDW 15.8 H Plt Count 162 MPV 10.4 Immature Gran % 0.6 Neutrophils % 84.4 Lymphocytes % 10.4 Monocytes % 4.0 Eosinophils % 0.3 Basophils % 0.3 Nucleated RBC % 0 Absolute Neutrophils 6.58 Absolute Lymphocytes 0.81 L Absolute Monocytes 0.31 Absolute Eosinophils 0.02 Absolute Basophils 0.02 Sodium 144 Potassium 4.0 Chloride 104 Carbon Dioxide 34.8 H Anion Gap 5.2 BUN 47 H Creatinine 1.6 H Estimated GFR/1.73 m2 31.01 Glucose 152 H Hemoglobin A1c 6.6 H Calcium 8.9 Iron TIBC Transferrin % Sat Ferritin 154 NT-Pro-B Natriuret Pep Vitamin B12 Folate 12/16/20 12/16/20 06:25 06:25 WBC RBC Hgb Hct MCV MCH MCHC RDW Plt Count MPV Immature Gran % Neutrophils % Lymphocytes % Monocytes % Eosinophils % Basophils % Nucleated RBC % Absolute Neutrophils Absolute Lymphocytes Absolute Monocytes Absolute Eosinophils Absolute Basophils Sodium Potassium Chloride Carbon Dioxide Anion Gap BUN Creatinine Estimated GFR/1.73 m2 Glucose Hemoglobin A1c Calcium Iron 46 L TIBC 246 L Transferrin % Sat 19 Ferritin NT-Pro-B Natriuret Pep 3180 H Vitamin B12 764 Folate 5.2 L Imaging Imaging Studies: X-ray of the right shoulder and humerus demonstrates a anterior dislocated right shoulder. No sign of fracture. Difficult to assess any arthritic changes or other bony changes given the positioning of the x-ray. CT scan of the right shoulder demonstrates a chronic right shoulder dislocation. The glenoid is significantly anteriorly sloped with deficiency in his anterior column. The humeral head is perched over the anterior edge of the glenoid with a large bridging osteophyte between the portion of the glenoid and the coracoid. There is also some chronic changes seen of the coracoid where the humeral head rest underneath it. There are osteophyte changes throughout the anterior aspect of the glenoid between it and the humeral head. Additionally, there is complete loss of cartilage seen in this area.
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
== END 2020-12-16 18:08 | disposition home health service (06) ==
LOC: ER 11:21 → MS 19:17
PROVIDERS: Admitting Provider Internal Medicine; Emergency Provider Student in an Organized Health Care Education/Training Program; PCP Family Medicine; Visit Provider Internal Medicine
DX: M19.011 Primary osteoarthritis, right shoulder (principal); R26.2 Difficulty in walking, not elsewhere classified; M24.411 Recurrent dislocation, right shoulder; M75.101 Unspecified rotator cuff tear or rupture of right shoulder, not specified as traumatic; I08.0 Rheumatic disorders of both mitral and aortic valves; I50.32 Chronic diastolic (congestive) heart failure; I67.9 Cerebrovascular disease, unspecified; I25.10 Atherosclerotic heart disease of native coronary artery without angina pectoris; E11.22 Type 2 diabetes mellitus with diabetic chronic kidney disease; Z99.81 Dependence on supplemental oxygen; Z95.1 Presence of aortocoronary bypass graft; D63.1 Anemia in chronic kidney disease; N18.30 Chronic kidney disease, stage 3 unspecified; M35.3 Polymyalgia rheumatica; Z79.52 Long term (current) use of systemic steroids; I73.9 Peripheral vascular disease, unspecified; K21.9 Gastro-esophageal reflux disease without esophagitis; Z86.73 Personal history of transient ischemic attack (TIA), and cerebral infarction without residual deficits; W19.XXXA Unspecified fall, initial encounter; Z79.4 Long term (current) use of insulin; M94.0 Chondrocostal junction syndrome [Tietze]; Z20.822 Contact with and (suspected) exposure to COVID-19
CPT/HCPCS: 36415; 80048; 80053; 87635; 93005; 94640; 97162; 97166; 99213; 99285; 72128; 73030; 73060; 73200; 74176; 82607; 82728; 82746; 83036; 83540; 83550; 83735; 83880; 84443; 84484; 85025; 93010; 93306; 99217; 99219; G0378; J0131; J1644; J1720; J3490

== ENCOUNTER → 2020-12-28 10:38 | Outpatient (BNVA) | payer MEDICARE, MEDICAID, SELFPAY | PROVIDERS: PCP Family Medicine; Referring Provider Family Medicine; Visit Provider Internal Medicine Cardiovascular Disease | DX: I25.10 Atherosclerotic heart disease of native coronary artery without angina pectoris (principal); I50.9 Heart failure, unspecified; I35.0 Nonrheumatic aortic (valve) stenosis; Z79.899 Other long term (current) drug therapy | CPT/HCPCS: 99214 ==

== ENCOUNTER 2021-02-08 16:14 | Emergency (ER) | payer MEDICARE, MEDICAID, SELFPAY ==
[2021-02-08] VITALS (14 sets, daily range): BP systolic 154–217; BP diastolic 56–139; PULSE 47–60; RESP 16–29; TEMP 36.7; O2SAT 92–100
--- NOTE | 2021-02-08 17:30 | RT.EKG_ITS ---
APPROVED REPORT Exam: Resting ECG Reason for Exam: PÉREZ, High Blood Pressure Patient Location: E HR:55 bpm ECG Measurements Heart Rate 55 AXIS WY 183 P 72 QRSd 105 QRS 38 QT 476 T 60 QTc 456 Conclusion Sinus bradycardia...rate< 60 inverted t waves v1-v3, no stemi
--- NOTE | 2021-02-08 17:35 | W.ED.GENAD ---
Discharge Plan Disposition Patient Disposition: HOME Condition: Stable Discharge Details Clinical Impression: High blood pressure, Headache Primary Care Provider: Perry Graham ED Provider: Shayna Vidal Home Meds and New Rx's Prescriptions: Continued gabapentin 100 mg capsule 100 mg PO TID RF: 0 nebivolol [Bystolic] 10 mg tablet 10 mg PO DAILY RF: 0 meclizine 25 mg tablet 25 mg PO DAILY PRNRF: 0 nystatin 100,000 unit/gram cream 1 applic topical TID PRNRF: 0 nystatin 100,000 unit/mL suspension 5 ml PO QID PRNRF: 0 nystatin [Nystop] 100,000 unit/gram powder 1 applic topical TID PRNRF: 0 tramadol 50 mg tablet 50 mg PO QHS PRNRF: 0 Brilinta 90 MG tablet 90 mg PO BID RF: 0 sucralfate [Carafate] 1 gram Tablet 1 g PO QID RF: 0 sertraline 100 MG tablet 200 mg PO DAILY RF: 0 levothyroxine [Synthroid] 150 MCG tablet 150 mcg PO DAILY AM RF: 0 spironolactone 25 MG tablet 25 mg PO DAILY AM RF: 0 ferrous sulfate 325 mg (65 mg iron) Tablet 325 mg PO DAILY RF: 0 ipratropium-albuterol 0.5 mg-3 mg(2.5 mg base)/3 mL solution for nebulization 3 ml INHALATION Q4H PRN PRN (Reason: Shortness Of Breath) RF: 0 dicyclomine 20 mg Tablet 20 mg PO QID PRN PRN (Reason: Abdominal Pain) RF: 0 pramipexole 1 mg tablet 0.5 mg PO BID RF: 0 amlodipine 5 mg Tablet 5 mg PO DAILY RF: 0 omeprazole 40 mg capsule,delayed release(DR/EC) 40 mg PO BID RF: 0 fluticasone propion-salmeterol [Advair Diskus] 100-50 mcg/dose blister with device 1 inh INHALATION BID RF: 0 Acidophilus Tablet,Chewable 1 tab PO DAILY RF: 0 levalbuterol tartrate [Xopenex HFA] 45 mcg/actuation HFA aerosol inhaler 2 puff INHALATION Q4H PRN PRN (Reason: Wheezing) RF: 0 cholecalciferol (vitamin D3) [Vitamin D3] 25 mcg (1,000 unit) tablet 1,000 unit PO DAILY RF: 0 prednisone 5 mg tablet 5 mg PO DAILY RF: 0 nitroglycerin 0.4 mg Tablet, Sublingual 0.4 mg SUBLINGUAL Q5M PRNRF: 0 loratadine 10 mg Tablet 10 mg PO DAILY RF: 0 bumetanide 1 mg tablet 2 mg PO BID RF: 0 metoprolol succinate 100 mg Tablet Extended Release 24 Hr 100 mg PO DAILY RF: 0 atorvastatin 20 mg Tablet 20 mg PO QHS RF: 0 acetaminophen [Tylenol Extra Strength] 500 mg tablet 1,000 mg PO Q8H Qty: 180 RF: 0 folic acid 1 mg tablet 1 mg PO DAILY Qty: 30 RF: 0 fentanyl 25 mcg/hr patch 72 hour 1 patch transdermal Q72H Qty: 1 RF: 0 Discharge Instructions Instructions: Hypertension (ED), General Headache (ED) Additional Instructions: CT today shows no acute changes no evidence for bleeding or mass. Please call your primary care provider tomorrow to discuss your blood pressure. You were given an extra 50 mg of metoprolol here in the department today. Please make sure to take your blood pressure medications in the a.m. Follow up with primary care provider in 3-5 days. Return to ED sooner if any worsening or concerns. Increase oral fluids. Please take Tylenol with food every 4-6 hours as needed for pain and swelling. Referrals: Perry Graham [Primary Care Provider] - 3 days Medical Decision Making 80-year-old female presents to the ER with chief complaint of headache, high blood pressure which is gotten worse over the last week. She also reports generalized weakness which daughter states is an ongoing issue. The daughter is concerned that she is not taking her medications as prescribed. She reports that her noontime medications have been not being taken and that her mother sometimes drops her pills. Patient does report that she did take her blood pressure medications this morning. Cardiac work-up ordered including serial troponins. EKG head CT. CBC shows white blood cell count of 7.50, H&H 10.4 hematocrit 33.7 which is at patient's baseline, BUN 56 creatinine 1.9 GFR 25 which is also at patient's baseline. Glucose 161 initial troponin less than 0.05. CT head without: FINDINGS: Brain: Age-related involutional changes and chronic microvascular ischemic disease. No evidence for acute transcortical infarct. No mass effect or midline shift. No extra-axial collection. No acute intracranial hemorrhage. Basal cisterns are patent. Cerebral ventricles: No ventriculomegaly. Paranasal sinuses: Visualized sinuses are unremarkable. No fluid levels. Mastoid air cells: Visualized mastoid air cells are well aerated. Bones/joints: Unremarkable. No acute fracture. Soft tissues: Unremarkable. IMPRESSION: No hydrocephalus, acute intracranial hemorrhage, or mass effect. Thank you for allowing us to participate in the care of your patient. Dictated and Authenticated by: Jermaine Cardenas MD Patient and daughter requesting to leave due to driving conditions. A CT result and was given 50 mg metoprolol while here in the department. Instructed to follow-up with PCP to discuss blood pressure and given strict return instructions. This text was generated using [employer] system, please disregard any oddities of phrase or misspellings. HPI General Mode of arrival: wheelchair. Date/Time Provider Initiated Documentation: 02/08/21 16:41. Limitations to Documentation: no limitations. Information obtained by: patient, family, RN notes reviewed and old records reviewed. HPI Narrative: 80-year-old female presents to the ER with chief complaint of headache, high blood pressure which is gotten worse over the last week. She also reports generalized weakness which daughter states is an ongoing issue. The daughter is concerned that she is not taking her medications as prescribed. She reports that her noontime medications have been not being taken and that her mother sometimes drops her pills. Patient does report that she did take her blood pressure medications this morning. She denies any recent falls or hitting her head. She denies any blurry vision. She does report some bilateral lower extremity weakness she does normally use a walker at home. She reports a frontal and top of her head pain. Systolic blood pressure was 200 today. Past medical history includes hyperlipidemia, history of a CABG, hypertension, type 2 diabetes mellitus, coronary artery disease, left ventricular hypertrophy, anxiety and hypothyroidism. Related Data Home Medications Medication Instructions Recorded Confirmed Brilinta 90 mg PO BID 03/11/13 12/28/20 sertraline 200 mg PO DAILY 05/17/16 12/28/20 levothyroxine [Synthroid] 150 mcg PO DAILY AM 10/09/17 12/28/20 spironolactone 25 mg PO DAILY AM 10/09/17 12/28/20 sucralfate [Carafate] 1 g PO QID 03/05/18 12/28/20 Acidophilus 1 tab PO DAILY 12/03/19 12/28/20 amlodipine 5 mg PO DAILY 12/03/19 12/28/20 cholecalciferol (vitamin D3) 1,000 unit PO DAILY 12/03/19 12/28/20 [Vitamin D3] dicyclomine 20 mg PO QID PRN PRN 12/03/19 12/28/20 ferrous sulfate 325 mg PO DAILY 12/03/19 12/28/20 fluticasone propion-salmeterol 1 inh INHALATION BID 12/03/19 12/28/20 [Advair Diskus] ipratropium-albuterol 3 ml INHALATION Q4H PRN PRN 12/03/19 12/28/20 levalbuterol tartrate [Xopenex HFA] 2 puff INHALATION Q4H PRN PRN 12/03/19 12/28/20 omeprazole 40 mg PO BID 12/03/19 12/28/20 pramipexole 0.5 mg PO BID 12/03/19 12/28/20 bumetanide 2 mg PO BID 03/03/20 12/28/20 loratadine 10 mg PO DAILY 03/03/20 12/28/20 nitroglycerin 0.4 mg SUBLINGUAL Q5M PRN 03/03/20 12/28/20 metoprolol succinate 100 mg PO DAILY 11/22/20 12/28/20 acetaminophen [Tylenol Extra 1,000 mg PO Q8H #180 tab 12/16/20 12/28/20 Strength] atorvastatin 20 mg PO QHS 12/16/20 12/28/20 fentanyl 1 patch TRANSDERMAL Q72H #1 ea 12/16/20 12/28/20 folic acid 1 mg PO DAILY #30 tab 12/16/20 12/28/20 meclizine 25 mg tablet 25 mg PO DAILY PRN 12/17/20 12/28/20 nebivolol 10 mg tablet 10 mg PO DAILY 12/17/20 12/28/20 nystatin 100,000 unit/gram topical 1 applic TOPICAL TID PRN 12/17/20 12/28/20 cream nystatin 100,000 unit/gram topical 1 applic TOPICAL TID PRN 12/17/20 12/28/20 powder nystatin 100,000 unit/mL oral 5 ml PO QID PRN ml 12/17/20 12/28/20 suspension tramadol 50 mg tablet 50 mg PO QHS PRN 12/17/20 12/28/20 gabapentin 100 mg capsule 100 mg PO TID 12/28/20 12/28/20 prednisone 5 mg tablet 5 mg PO DAILY tab 12/28/20 12/28/20 Previous Rx's Medication Instructions Recorded acetaminophen [Tylenol Extra 1,000 mg PO Q8H #180 tab 12/16/20 Strength] fentanyl 1 patch TRANSDERMAL Q72H #1 ea 12/16/20 folic acid 1 mg PO DAILY #30 tab 12/16/20 Allergies Allergy/AdvReac Type Severity Reaction Status Date / Time aspirin Allergy Severe Anaphylaxsi Verified 02/08/21 16:36 s morphine Allergy Intermediate Skin Rash Verified 02/08/21 16:36 NSAIDS (Non-Steroidal Allergy Intermediate Skin Rash Verified 02/08/21 16:36 Anti-Inflamma Sulfa (Sulfonamide Allergy Intermediate Skin Rash Verified 02/08/21 16:36 Antibiotics) Quinidine-Quinine Analogues AdvReac Intermediate high fever Verified 02/08/21 16:36 (Cincho tetanus and diphtheria AdvReac Intermediate Swelling/Ed Verified 02/08/21 16:36 toxoids rachel [Tetanus&Diphtheria Toxoid] NADIYA Inhibitors AdvReac Mild cough Verified 02/08/21 16:36 General Stated Complaint: GenMedical ELISE: 3 Review of Systems All systems reviewed & are unremarkable except as noted in HPI and below Constitutional Constitutional: Reports as per HPI, Reports headache(s) and Reports weakness ENT Ears, Nose, Mouth, and Throat: Reports headache(s) Neurologic Neurologic: Reports headache(s) and Reports weakness ON LICENSE OF [facility] Active Problem List Arthritis of right glenohumeral joint (Acute) Costochondritis (Acute) CHF (congestive heart failure) (Chronic) Discharge planning issues (Acute) Dislocation of right shoulder joint (Chronic) Head contusion (Acute) Fall (Acute) Chronic GERD (Acute) Cellulitis of left leg (Acute) Skin tear of left lower leg without complication (Acute) H/O hernia repair (Chronic) Lives alone with help available (Chronic) Hernia of abdominal wall (Chronic) Decreased range of motion (Chronic) Bilateral shoulder pain (Chronic) Weight gain with edema (Acute) Edema due to congestive heart failure (Chronic) Obesity (BMI 30.0-34.9) (Acute) Dysphagia (Acute) Acute on chronic diastolic (congestive) heart failure (Acute) Frailty syndrome in geriatric patient (Chronic) Goals of care, counseling/discussion (Chronic) Vascular dementia (Chronic) Unintentional weight loss (Chronic) Palliative care patient (Chronic) Opioid dependence (Acute) Ambulatory dysfunction (Chronic) Chronic respiratory failure with hypoxia (Acute) CHF (congestive heart failure) (Chronic) Chronic pain (Chronic) Right shoulder pain (Acute) Lymphoma of gastrointestinal tract (Acute) Hypokalemia (Acute) Anemia (Chronic) DVT prophylaxis (Chronic) Pulmonary embolism (Chronic) PVD (peripheral vascular disease) (Chronic) Anemia (Chronic) Cholelithiasis without cholecystitis (Chronic) LVH (left ventricular hypertrophy) (Chronic) CAD (coronary artery disease) (Chronic) Asthma (Chronic) Low back pain (Chronic) Peripheral vascular disease (Chronic) CKD (chronic kidney disease), stage III (Chronic) Anxiety (Chronic) Hypothyroidism (Chronic) Type 2 diabetes mellitus (Chronic) Vitamin B 12 deficiency (Chronic) Polymyalgia rheumatica (Chronic) Venous stasis dermatitis of both lower extremities (Chronic) Compression fracture of L1 lumbar vertebra (Chronic ~07/2017) Falls frequently (Acute) Decreased performance of ADLs (Acute) Aortic stenosis, moderate (Chronic ~07/2017) Lumbar compression fracture (Acute ~03/05/18) Medical History Acute prerenal azotemia Altered mental state B-cell lymphoma Candidiasis of mouth Candidiasis of skin Discharge planning issues HLD (hyperlipidemia) Hx of CABG (~2000) 2000 Hypertensive disorder Pneumonia Surgical History S/P CABG x 2 Status post revision of total replacement of both knees Family History Daughter Diabetes Son Diabetes Obesity Mother , age 49 of breast cancer Breast cancer Father , age 68 of stroke Stroke Hypertension Sister Seizure disorder Sister , from complications of her RA, Lucy not clear how Rheumatoid arthritis Brother Leukemia Brother Heart disease Sister Dementia Social History Smoking/Tobacco Use Status: Never Second Hand Exposure: No Smoking risk assessment performed?: Yes Alcohol Intake: never Drug use: Never Substance use type: does not use Caregiver/Support person: Yes (during the day) Household members: other Details: hired young woman for 5 hrs/day, 5 days/wk; family around too Housing: house Number of Children: 2 number of grandchildren: 5 Communication Needs: Hard of Hearing and Corrective Lenses Education Level: high school Do you need help understanding health information?: Always 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, 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, 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 Pets and animals: Yes Pets and animals: cat(s) Current gender identity: female What is your relationship status?: How often do you talk on the phone with friends or family?: three or more times per week How often do you get together with friends or relatives?: three or more times per week Panel score (0-1 are the most socially isolated patients): 1 What type of physical activity do you participate in: none and sedentary lifestyle Special toi needs: No Agree to transfusion: Yes Seatbelt use: always Working smoke detector in home: Yes Fire extinguisher in home: Yes Do you feel safe at home: Yes Do you feel safe in your relationship?: Yes Additional Social history: Lives alone in her own home since February 2018. Prior to that was living with her daughter for about a year. She was at a intermediate in [place] prior to moving in with her daughter. NEVER wants to go to a intermediate again. Never wants to go to [facility]. Definitely the matriarch of her family. Has help now from Sarah, who helps her with ADLs. Keeps on eye on her diet. has assistance 5 days per week now. Exam Narrative Exam Narrative: Constitutional: Alert and oriented x3. Appears stated age. Normal body habitus. Head: Normocephalic, no trauma. Eyes: Pupils PERRL, Red reflex noted, EOM's intact. Eyelids symmetrical without lesions, discharge, or swelling. ENT: Bilateral TM's WNL, External ear normal to inspection, no mastoid TTP, swelling, or erythema, Nasal turbinates WNL, no nasal discharge. Normal dentition, Posterior pharynx WNL, no exudate. Chest: RRR, Normal S1, S2, distal pulses intact. Resp: Lungs clear to auscultation bilaterally, no wheezes, rales, or rhonchi. Abdomen: Soft, non-distended, Normoactive bowel sounds all 4 quads. Musculoskeletal: Normal gait, 5/5 strength to all four extremities. Skin: No suspicious rashes or lesions. Capillary refill less than 2 sec. Neurologic: Cranial nerves II-XII intact. Alert and oriented x 3. Motor: No deficits noted. Sensory: Intact bilaterally all 4 extremities. Reflexes: DTR's intact bilaterally. Hematologic/Lymphatic: No ecchymosis, no lymphadenopathy. Course Vital Signs Vital signs: Vital Signs Temperature 36.7 C 02/08/21 16:33 Pulse 55 L 02/08/21 16:33 Respiratory Rate 16 02/08/21 16:33 Blood Pressure 192/57 H 02/08/21 16:33 Pulse Oximetry 92 02/08/21 16:33 Temperature 36.7 C 02/08/21 16:33 Temperature Source Skin 02/08/21 16:33 Pulse 55 L 02/08/21 16:33 Respiratory Rate 16 02/08/21 16:33 Respiratory Effort Non-Labored 02/08/21 17:31 Blood Pressure 192/57 H 02/08/21 16:33 Blood Pressure Position Sitting 02/08/21 16:33 Pulse Oximetry 92 02/08/21 16:33 Oxygen Delivery Method Room Air 02/08/21 16:33 Oxygen Flow Rate 0 02/08/21 16:33 Pain Level 4 02/08/21 16:33 Comment 02/08/21 16:33
--- NOTE | 2021-02-08 17:37 | DI.CT_ITS ---
Exam(s) CT HEAD WO EXAM: CT HEAD WO CLINICAL HISTORY: PÉREZ, Hx of Aneurysm. TECHNIQUE: Imaging Protocol: Axial computed tomography images with coronal and sagittal reformatted images were created and reviewed COMPARISON: CT CT HEAD CERVICAL SPINE WO from 11/22/2020 FINDINGS: Ventricles and Extra axial spaces: Normal in size and morphology for the patient's age. Hemorrhage: None. Cerebral parenchyma: No acute territorial infarct is identified. There are areas of decreased attenu ation in the white matter most consistent with chronic microvascular ischemic disease. Midline shift: None. Brainstem/Cerebellum: Normal. Calvarium: Normal. Visualized Paranasal sinuses/Mastoids: Clear. Soft Tissues: Unremarkable. IMPRESSION: No acute intracranial process. RADIATION DOSE DELIVERED: 806.95mGy.cm Total DLP DATA REPOSITORY: All CT scans at this facility are submitted to the National Radiology Data Registry (NRDR) Dose Index Registry (DIR) with the [employer] (ACR). RADIATION OPTIMIZATION: All CT scans at this facility use at least one of these dose optimization te chniques: automated exposure control; mA and/or kV adjustment per patient size (includes targeted exa ms where dose is matched to clinical indication); or iterative reconstruction.
[2021-02-08] MEDS: Normal Saline 1,000 ML 150 ML IV (18:20)
[2021-02-08 18:25] LABS: Abs Immature Grans 0.04 10^3/uL (0.0-0.06); Absolute Basophil Count 0.03 10^3/uL (0.0-0.2); Absolute Eosinophil Count 0.03 10^3/uL (0.0-0.7); Absolute Lymphocyte Count 0.94 10^3/uL (1.2-3.4); Absolute Monocyte Count 0.32 10^3/uL (0.1-0.8); Absolute Neutrophil Count 6.14 10^3/uL (1.2-6.7); Basophils % 0.4; Eosinophils % 0.4; HCT 33.7 % (36.0-46.0); HGB 10.4 g/dL (11.2-15.7); Immature Grans % 0.5; Lymphocytes % 12.5; MCHC 30.9 % (32.0-36.0); MCV 87.5 fL (80-95); MPV 10.4 fL (8.0-11.0); Monocytes % 4.3; Neutrophils % 81.9; Nucleated RBC 0 %; Platelet Count 140 10^3/uL (130-400); RBC 3.85 10^6/uL (3.93-5.22); RDW 15.6 % (11.7-14.6); RDW-SD 49.6 fL
[2021-02-08] MEDS: Normal Saline Flush 10 ML SYR IVP (18:31)
[2021-02-08] MEDS: Metoprolol 25 MG TAB PO ×2 (18:31→20:10)
[2021-02-08 18:33] LABS: INR 1.1 (0.9-1.1); Prothrombin Time 10.7 sec (9.3-11.0)
[2021-02-08 18:45] LABS: ALT 17 U/L (14-59); AST 14 U/L (15-37); Albumin 3.7 g/dL (3.4-5.0); Alkaline Phosphatase 97 U/L (46-116); Anion Gap 7.1 mmol/L (3-11); BUN 56 mg/dL (7-18); Bilirubin, Total 0.4 mg/dL (0.2-1.0); CO2 32.9 mmol/L (21.0-32.0); CREATININE 1.9 mg/dL (0.55-1.02); Calcium 8.8 mg/dL (8.5-10.1); Chloride 101 mmol/L (98-107); Estimated GFR 25.44 (mL/min/1.73m2); Glucose 161 mg/dL (74-106); Magnesium 2.2 mg/dL (1.8-2.4); Potassium 4.1 mmol/L (3.5-5.1); Sodium 141 mmol/L (136-145); Total Protein 7.7 g/dL (6.4-8.2)
[2021-02-08 18:53] LABS: Troponin I < 0.05 ng/mL (<0.06)
--- NOTE | 2021-02-08 19:37 | DI.VRAD_ITS ---
PROCEDURE INFORMATION: Exam: CT Head Without Contrast Exam date and time: 02/08/2021 5:42 PM Age: 80 years old Clinical indication: Pain; Patient HX: Headache, h/o aneurysm TECHNIQUE: Imaging protocol: Computed tomography of the head without contrast. COMPARISON: CT HEAD CERVICAL SPINE WO 11/22/2020 5:16 AM FINDINGS: Brain: Age-related involutional changes and chronic microvascular ischemic disease. No evidence for acute transcortical infarct. No mass effect or midline shift. No extra-axial collection. No acute intracranial hemorrhage. Basal cisterns are patent. Cerebral ventricles: No ventriculomegaly. Paranasal sinuses: Visualized sinuses are unremarkable. No fluid levels. Mastoid air cells: Visualized mastoid air cells are well aerated. Bones/joints: Unremarkable. No acute fracture. Soft tissues: Unremarkable. IMPRESSION: No hydrocephalus, acute intracranial hemorrhage, or mass effect. Dictated and Authenticated by: Jermaine Cardenas MD. Ordering:MOLLY Corral MD
== END 2021-02-08 20:27 | disposition home or self-care (01) ==
PROVIDERS: Emergency Provider Registered Nurse Emergency; PCP Family Medicine
DX: I10 Essential (primary) hypertension (principal); R51.9 Headache, unspecified; R53.1 Weakness; I25.10 Atherosclerotic heart disease of native coronary artery without angina pectoris; Z95.1 Presence of aortocoronary bypass graft; E03.9 Hypothyroidism, unspecified; E11.9 Type 2 diabetes mellitus without complications
CPT/HCPCS: 36415; 80053; 93005; 96360; 96361; 99285; 70450; 83735; 84484; 85025; 85610; 93010

== ENCOUNTER → 2021-03-30 10:47 | Outpatient (BNVA) | payer MEDICARE, MEDICAID, SELFPAY | PROVIDERS: PCP Family Medicine; Visit Provider Internal Medicine Cardiovascular Disease | DX: I50.33 Acute on chronic diastolic (congestive) heart failure (principal); I25.10 Atherosclerotic heart disease of native coronary artery without angina pectoris; N18.30 Chronic kidney disease, stage 3 unspecified; J96.11 Chronic respiratory failure with hypoxia; I35.0 Nonrheumatic aortic (valve) stenosis | CPT/HCPCS: 99214 ==

== ENCOUNTER 2021-06-07 16:26 | Emergency (ER) | payer MEDICARE, MEDICAID, SELFPAY ==
[2021-06-07] VITALS (30 sets, daily range): BP systolic 135–184; BP diastolic 42–73; PULSE 48–66; RESP 15–30; TEMP 36.5; O2SAT 93–97
--- NOTE | 2021-06-07 16:30 | RT.EKG_ITS ---
APPROVED REPORT Exam: Resting ECG Reason for Exam: CAD, LVH Patient Location: E HR:60 bpm ECG Measurements Heart Rate 60 AXIS OR 169 P 38 QRSd 98 QRS 38 QT 455 T 33 QTc 454 Conclusion Sinus rhythm...normal P axis, V-rate 60- 99
--- NOTE | 2021-06-07 16:45 | DI.RAD_ITS ---
Exam(s) XR PORTABLE CHEST AP EXAM: XR PORTABLE CHEST AP CLINICAL HISTORY: SOB, PUI. TECHNIQUE: 2D digital imaging was performed. COMPARISON: CR,XR XR CHEST 2V PA LATERAL from 08/23/2020 FINDINGS: Single AP portable view. Sternotomy wires and evidence of previous CABG again noted. Mild cardiomegaly. Appearance of the lung regalado is similar to 08/23/2020. Patchy infiltrates bilaterally.. No obvious pleural effusions. IMPRESSION: Sternotomy. Mild cardiomegaly. CABG. Findings as above. Very similar appearance to 08/23/2020. Possible element of pulmonary edema and i nfectious etiology. Correlation with clinical findings recommended DATA REPOSITORY: RADIATION DOSE DELIVERED: All CT scans at this facility use at least one of these dose optimization techniques: automated exposure control; mA and/or kV adjustment per patient size (includes targeted e xams where dose is matched to clinical indication); or iterative reconstruction.
--- NOTE | 2021-06-07 16:58 | W.ED.GENAD ---
Discharge Plan Disposition Patient Disposition: HOME Condition: Improving Discharge Details Clinical Impression: CHF exacerbation Primary Care Provider: Perry Graham ED Provider: Shayna Vidal Home Meds and New Rx's Prescriptions: New cephalexin 500 mg tablet 500 mg PO BID 7 Days Qty: 14 0RF Rx Instructions: Take with Yogurt or probiotic Continued gabapentin 100 mg capsule 100 mg PO TID 0RF meclizine 25 mg tablet 25 mg PO DAILY PRN0RF nystatin 100,000 unit/gram cream 1 applic topical TID PRN0RF tramadol 50 mg tablet 50 mg PO QHS PRN0RF Brilinta 90 MG tablet 90 mg PO BID 0RF Label Comments: sucralfate [Carafate] 1 gram Tablet 1 g PO QID 0RF sertraline 100 MG tablet 200 mg PO DAILY 0RF levothyroxine [Synthroid] 150 MCG tablet 150 mcg PO DAILY AM 0RF spironolactone 25 MG tablet 25 mg PO DAILY AM 0RF Label Comments: 10/09/17 pt not taking ferrous sulfate 325 mg (65 mg iron) Tablet 325 mg PO DAILY 0RF ipratropium-albuterol 0.5 mg-3 mg(2.5 mg base)/3 mL solution for nebulization 3 ml INHALATION Q4H PRN PRN (Reason: Shortness Of Breath) 0RF Label Comments: INHALE THE CONTENTS OF 1 VIAL VIA NEBULIZER EVERY 4 HOURS NEEDED dicyclomine 20 mg Tablet 20 mg PO QID PRN PRN (Reason: Abdominal Pain) 0RF pramipexole 1 mg tablet 0.5 mg PO BID 0RF Label Comments: TAKE 1 TABLET BY MOUTH TWICE A DAY amlodipine 5 mg Tablet 5 mg PO DAILY 0RF omeprazole 40 mg capsule,delayed release(DR/EC) 40 mg PO BID 0RF Label Comments: TK 1 C PO BID fluticasone propion-salmeterol [Advair Diskus] 100-50 mcg/dose blister with device 1 inh INHALATION BID 0RF Label Comments: INL 1 PUFF PO BID Acidophilus Tablet,Chewable 1 tab PO DAILY 0RF levalbuterol tartrate [Xopenex HFA] 45 mcg/actuation HFA aerosol inhaler 2 puff INHALATION Q4H PRN PRN (Reason: Wheezing) 0RF Label Comments: INL 2 PFS PO Q 4 H PRN cholecalciferol (vitamin D3) [Vitamin D3] 25 mcg (1,000 unit) tablet 1,000 unit PO DAILY 0RF Label Comments: TK 2 TS PO ONCE D prednisone 5 mg tablet 5 mg PO DAILY 0RF Label Comments: TK 3 TS PO QD DIRECTED nitroglycerin 0.4 mg Tablet, Sublingual 0.4 mg SUBLINGUAL Q5M PRN0RF loratadine 10 mg Tablet 10 mg PO DAILY 0RF bumetanide 1 mg tablet 2 mg PO BID 0RF metoprolol succinate 100 mg Tablet Extended Release 24 Hr 100 mg PO DAILY 0RF atorvastatin 20 mg Tablet 20 mg PO QHS 0RF acetaminophen [Tylenol Extra Strength] 500 mg tablet 1,000 mg PO Q8H Qty: 180 0RF folic acid 1 mg tablet 1 mg PO DAILY Qty: 30 0RF fentanyl 25 mcg/hr patch 72 hour 1 patch transdermal Q72H Qty: 1 0RF Rx Instructions: disp 1 patch Discharge Instructions Instructions: Heart Failure (ED) Additional Instructions: At this time troponin is within normal limits, her BNP was slightly elevated at 3804, I do suspect that this is what is causing your shortness of breath. Discussed with your primary care provider increasing her spironolactone dose. You were given Lasix 20 mg IV here which improved her symptoms. Follow up with primary care provider in 1 days as previously scheduled Return to ED sooner if any worsening or concerns. Is also possible urinary tract infection noted on the urine sample. We will give you an antibiotic. Culture at this time is pending we will call you if you need to be on a different antibiotic Referrals: Perry Graham [Primary Care Provider] - 1 day Discharge Data Discharge Date/Time-TO BE ENTERED AT DEPARTURE: 06/07/21 20:59 Medical Decision Making 81-year-old female presents to the ER with chief complaint of shortness of breath, chest pressure and burning, increase fatigue and weaknessthat got worse x1 week. She denies any recent falls. She reports yellow productive cough worse in the morning, denies any fever or chills, she reports pressure between her breasts. She denies any nausea vomiting diarrhea. She denies any problems urinating or burning with urination. She reports taking her medications as prescribed prior to arrival today. She denies missing any medications. She does have a fentanyl patch noted on her right back, she did take her Advair inhaler as prescribed and Xopenex inhaler past medical history includes B-cell lymphoma,, hyperlipidemia, CHF, history of CABG x2,, chronic kidney disease stage III, morbid obesity, hypothyroidism, type 2 diabetes mellitus, palliative care patient, GERD. Past surgical history includes CABG x2 bilateral knee replacement. Work-up ordered including CBC, CMP, serial troponins x2, probe ENT due to history of CHF, chest x-ray 1 view rule out pneumonia, rapid Covid test. O2 sat is 94% on room air. She does have some increased work of breathing diminished lung sounds on the left scattered expiratory wheezes throughout. Differential diagnosis includes but not limited to CAD, CHF exacerbation, pneumonia Having a hard time establishing IV access, I attempted US guided IV x 2 with little to no success, labs show no leukocytosis, hemoglobin 9.9 hematocrit 32.0 RBC 2.50, RDW 15.4%, sodium 141 potassium 4.1, BUN 52 creatinine 1.8 GFR is 27 however according to medical record review patient's baseline GFR is approximately 25-30. Norm glucose 159, proBNP is elevated at 3804, this is slightly elevated from previous results of 3179 and December 2020. Initial troponin within normal limits. Urinalysis shows trace leukocytes 20-50 WBCs with many bacteria, culture is pending at this time. EXAM:? XR PORTABLE CHEST AP CLINICAL HISTORY: ? SOB, PUI. ? TECHNIQUE:? 2D digital imaging was performed. COMPARISON:? CR,XR XR CHEST 2V PA ? LATERAL from 08/23/2020 FINDINGS: Single AP portable view. Sternotomy wires and evidence of previous CABG again noted.? Mild cardiomegaly. Appearance of the lung regalado is similar to 08/23/2020.? Patchy infiltrates bilaterally..? No obvious pleural effusions. IMPRESSION: Sternotomy.? Mild cardiomegaly.? CABG. Findings as above.? Very similar appearance to 08/23/2020.? Possible element of pulmonary edema and infectious etiology.? Correlation with clinical findings recommended 2030: Patient reevaluation, work of breathing is much improved after the 20 mg of Lasix, patient has had urine output in her depends. Timing is unable to be measured. She reports feeling much better. O2 sat at this time is 96% on room air, blood pressure is 185/64, heart rate 55. I did discuss with her and her family my recommendations for increased dose of spironolactone I do have a primary care appointment tomorrow with Dr. Sandy. Patient and family verbalized understanding all questions were answered to the best my abilities. Patient was given cephalexin for UTI. Medical Records Medical records reviewed: Yes I reviewed the patient's medical records. Medical records narrative: According to the palliative care note on April 28, 2021 patient and family want to avoid inpatient admission if absolutely necessary, patient is a full code. At the time of that note patient had home health care and caregivers at home. HPI General Mode of arrival: wheelchair. Date/Time Provider Initiated Documentation: 06/07/21 16:27. Limitations to Documentation: physical limitation. Information obtained by: patient, RN notes reviewed and old records reviewed. HPI Narrative: 81-year-old female presents to the ER with chief complaint of shortness of breath, chest pressure and burning, increase fatigue and weaknessthat got worse x1 week. She denies any recent falls. She reports yellow productive cough worse in the morning, denies any fever or chills, she reports pressure between her breasts. She denies any nausea vomiting diarrhea. She denies any problems urinating or burning with urination. She reports taking her medications as prescribed prior to arrival today. She denies missing any medications. She does have a fentanyl patch noted on her right back, she did take her Advair inhaler as prescribed and Xopenex inhaler past medical history includes B-cell lymphoma,, hyperlipidemia, CHF, history of CABG x2,, chronic kidney disease stage III, morbid obesity, hypothyroidism, type 2 diabetes mellitus, palliative care patient, GERD. Past surgical history includes CABG x2 bilateral knee replacement. Related Data Home Medications Medication Instructions Recorded Confirmed ticagrelor 90 mg tablet (Brilinta) 90 mg PO BID 03/11/13 06/07/21 sertraline 100 mg tablet 200 mg PO DAILY 05/17/16 06/07/21 levothyroxine 150 mcg tablet 150 mcg PO DAILY AM 10/09/17 06/07/21 (Synthroid) spironolactone 25 mg tablet 25 mg PO DAILY AM 10/09/17 06/07/21 sucralfate 1 gram tablet (Carafate) 1 g PO QID 03/05/18 06/07/21 Lactobacillus acidophilus 1 tab PO DAILY 12/03/19 06/07/21 (Acidophilus) amlodipine 5 mg tablet 5 mg PO DAILY 12/03/19 06/07/21 cholecalciferol (vitamin D3) 25 1,000 unit PO DAILY 12/03/19 06/07/21 mcg (1,000 unit) tablet (Vitamin D3) dicyclomine 20 mg tablet 20 mg PO QID PRN PRN 12/03/19 06/07/21 ferrous sulfate 325 mg (65 mg 325 mg PO DAILY 12/03/19 06/07/21 iron) tablet fluticasone 100 mcg-salmeterol 50 1 inh INHALATION BID 12/03/19 06/07/21 mcg/dose blistr powdr for inhalation (Advair Diskus) ipratropium 0.5 mg-albuterol 3 mg 3 ml INHALATION Q4H PRN PRN 12/03/19 06/07/21 (2.5 mg base)/3 mL nebulization soln levalbuterol tartrate 45 2 puff INHALATION Q4H PRN PRN 12/03/19 06/07/21 mcg/actuation aerosol inhaler (Xopenex HFA) omeprazole 40 mg capsule,delayed 40 mg PO BID 12/03/19 06/07/21 release pramipexole 1 mg tablet 0.5 mg PO BID 12/03/19 06/07/21 bumetanide 1 mg tablet 2 mg PO BID 03/03/20 06/07/21 loratadine 10 mg tablet 10 mg PO DAILY 03/03/20 06/07/21 nitroglycerin 0.4 mg sublingual 0.4 mg SUBLINGUAL Q5M PRN 03/03/20 06/07/21 tablet metoprolol succinate 100 mg 100 mg PO DAILY 11/22/20 06/07/21 tablet,extended release 24 hr acetaminophen 500 mg tablet 1,000 mg PO Q8H #180 tab 12/16/20 06/07/21 (Tylenol Extra Strength) atorvastatin 20 mg tablet 20 mg PO QHS 12/16/20 06/07/21 fentanyl 25 mcg/hr transdermal 1 patch TRANSDERMAL Q72H #1 ea 12/16/20 06/07/21 patch folic acid 1 mg tablet 1 mg PO DAILY #30 tab 12/16/20 06/07/21 meclizine 25 mg tablet 25 mg PO DAILY PRN 12/17/20 06/07/21 nystatin 100,000 unit/gram topical 1 applic TOPICAL TID PRN 12/17/20 06/07/21 cream tramadol 50 mg tablet 50 mg PO QHS PRN 12/17/20 06/07/21 gabapentin 100 mg capsule 100 mg PO TID 12/28/20 06/07/21 prednisone 5 mg tablet 5 mg PO DAILY tab 12/28/20 06/07/21 cephalexin 500 mg tablet 500 mg PO BID 7 Days #14 tab 06/07/21 Previous Rx's Medication Instructions Recorded acetaminophen 500 mg tablet 1,000 mg PO Q8H #180 tab 12/16/20 (Tylenol Extra Strength) fentanyl 25 mcg/hr transdermal 1 patch TRANSDERMAL Q72H #1 ea 12/16/20 patch folic acid 1 mg tablet 1 mg PO DAILY #30 tab 12/16/20 cephalexin 500 mg tablet 500 mg PO BID 7 Days #14 tab 06/07/21 Allergies Allergy/AdvReac Type Severity Reaction Status Date / Time aspirin Allergy Severe Anaphylaxsi Verified 06/07/21 16:53 s morphine Allergy Intermediate Skin Rash Verified 06/07/21 16:53 NSAIDS (Non-Steroidal Allergy Intermediate Skin Rash Verified 06/07/21 16:53 Anti-Inflamma Sulfa (Sulfonamide Allergy Intermediate Skin Rash Verified 06/07/21 16:53 Antibiotics) Quinidine-Quinine Analogues AdvReac Intermediate high fever Verified 06/07/21 16:53 (Cincho tetanus and diphtheria AdvReac Intermediate Swelling/Ed Verified 06/07/21 16:53 toxoids rachel [Tetanus&Diphtheria Toxoid] NADIYA Inhibitors AdvReac Mild cough Verified 06/07/21 16:53 General Stated Complaint: Chest Pain ELISE: 2 Review of Systems All systems reviewed & are unremarkable except as noted in HPI and below Constitutional Constitutional: Reports as per HPI, Reports fatigue and Reports weakness Cardiovascular Cardiovascular: Reports chest pain at rest (pressure burning Radiation bilateral shoulders and neck) and Reports dyspnea Respiratory Respiratory: Reports dyspnea Neurologic Neurologic: Reports weakness Endocrine Endocrine: Reports fatigue PFSH All Active Problems (Updated 06/07/21 @ 20:30 by Shayna Vidal) CHF exacerbation (Acute) Walker as ambulation aid (Acute) Anticoagulated (Acute) Frequent falls (Chronic) falling on average 1-2 x per month since Feb 2021 High blood pressure (Chronic) Headache (Acute) Arthritis of right glenohumeral joint (Acute) Costochondritis (Acute) CHF (congestive heart failure) (Chronic) HFPEF w/ LVEF 65% per echo from 04/24/2019. RV is dilated w/ apical hypokinesis, biatrial enlargement, moderate aortic stenosis, severe PHTN (RVSP 75 TO 80 MM) Discharge planning issues (Acute) Dislocation of right shoulder joint (Chronic) Head contusion (Acute) Fall (Acute) Chronic GERD (Acute) Cellulitis of left leg (Acute) Skin tear of left lower leg without complication (Acute) H/O hernia repair (Chronic) Lives alone with help available (Chronic) has CLIENT BUSINESS MANAGER from 8 am to 1 pm daughter lives near by Hernia of abdominal wall (Chronic) recurrent problem; LUQ Mar 2020 Decreased range of motion (Chronic) bilateral shoulders Bilateral shoulder pain (Chronic) rotator cuff tears plus OA? 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 Hypokalemia (Acute) Anemia (Chronic) DVT prophylaxis (Chronic) Pulmonary embolism (Chronic) PVD (peripheral vascular disease) (Chronic) Anemia (Chronic) Cholelithiasis without cholecystitis (Chronic) LVH (left ventricular hypertrophy) (Chronic) CAD (coronary artery disease) (Chronic) CABG approximately ten years ago; recently cardiac cath with single stent placement on inferior portion of heart down at [facility]. Dr. Navarro follows patient. Asthma (Chronic) Chronic hypoxemic respiratory failure and patient is on 2 liters of oxygen chronically at rest and 3 liters with exertion. Low back pain (Chronic) Peripheral vascular disease (Chronic) CKD (chronic kidney disease), stage III (Chronic) Baseline creatine 1.1 to 1.3 Anxiety (Chronic) Hypothyroidism (Chronic) Type 2 diabetes mellitus (Chronic) On insulin. Vitamin B 12 deficiency (Chronic) Polymyalgia rheumatica (Chronic) Venous stasis dermatitis of both lower extremities (Chronic) Compression fracture of L1 lumbar vertebra (Chronic ~07/2017) Falls frequently (Acute) Decreased performance of ADLs (Acute) Aortic stenosis, moderate (Chronic ~07/2017) Lumbar compression fracture (Acute ~03/05/18) Medical History Acute prerenal azotemia Altered mental state B-cell lymphoma Candidiasis of mouth Candidiasis of skin Discharge planning issues HLD (hyperlipidemia) Hx of CABG (~2000) 2000 Hypertensive disorder Pneumonia Surgical History S/P CABG x 2 Status post revision of total replacement of both knees Family History Daughter Diabetes Son Diabetes Obesity Mother , age 49 of breast cancer Breast cancer Father , age 68 of stroke Stroke Hypertension Sister Seizure disorder Sister , from complications of her RA, Lucy not clear how Rheumatoid arthritis Brother Leukemia Brother Heart disease Sister Dementia Social History Smoking/Tobacco Use Status: Never Second Hand Exposure: No Smoking risk assessment performed?: Yes Alcohol Intake: never Drug use: Never Substance use type: does not use Caregiver/Support person: Yes (during the day) Household members: other Details: hired young woman for 5 hrs/day, 5 days/wk; family around too Housing: house Number of Children: 2 number of grandchildren: 5 Communication Needs: Hard of Hearing and Corrective Lenses Education Level: high school Do you need help understanding health information?: Always 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, 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, 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 Pets and animals: Yes Pets and animals: cat(s) Current gender identity: female What is your relationship status?: How often do you talk on the phone with friends or family?: three or more times per week How often do you get together with friends or relatives?: three or more times per week Panel score (0-1 are the most socially isolated patients): 1 What type of physical activity do you participate in: none and sedentary lifestyle Special toi needs: No Agree to transfusion: Yes Seatbelt use: always Working smoke detector in home: Yes Fire extinguisher in home: Yes Do you feel safe at home: Yes Do you feel safe in your relationship?: Yes Additional Social history: Lives alone in her own home since February 2018. Prior to that was living with her daughter for about a year. She was at a retirement in [place] prior to moving in with her daughter. NEVER wants to go to a retirement again. Never wants to go to [facility]. Definitely the matriarch of her family. Has help now from Sarah, who helps her with ADLs. Keeps on eye on her diet. has assistance 5 days per week now. Exam Narrative Exam Narrative: Constitutional: Alert and oriented x3. Appears stated age. Overweight body habitus. Appears chronically ill. Head: Normocephalic, no trauma. Eyes: Pupils PERRL, Red reflex noted, EOM's intact. Eyelids symmetrical without lesions, discharge, or swelling. ENT: Bilateral TM's WNL, External ear normal to inspection, no mastoid TTP, swelling, or erythema, Nasal turbinates WNL, no nasal discharge. Normal dentition, Posterior pharynx WNL, no exudate. Chest: RRR, Normal S1, S2, distal pulses intact. Resp: Lungs diminished lung sounds on the left scattered expiratory wheezes throughout all regalado, increased work of breathing noted. Abdomen: Soft, non-distended, Normoactive bowel sounds all 4 quads. Skin: No suspicious rashes or lesions. Capillary refill less than 2 sec. Neurologic: Cranial nerves II-XII intact. Alert and oriented x 3. Motor: No deficits noted. Sensory: Intact bilaterally all 4 extremities. Reflexes: DTR's intact bilaterally.. Course Vital Signs Vital signs: Vital Signs Temperature 36.5 C 06/07/21 16:42 Pulse 66 06/07/21 16:42 Respiratory Rate 26 H 06/07/21 16:42 Blood Pressure 178/73 H 06/07/21 16:42 Pulse Oximetry 93 06/07/21 16:42 Temperature 36.5 C 06/07/21 16:42 Temperature Source Temporal Artery Scan 06/07/21 16:42 Pulse 66 06/07/21 16:42 Respiratory Rate 19 06/07/21 16:45 Respiratory Effort Non-Labored 06/07/21 16:45 Respiratory Depth Normal 06/07/21 16:45 Respiratory Pattern Normal 06/07/21 16:45 Blood Pressure 178/73 H 06/07/21 16:42 Blood Pressure Position Sitting 06/07/21 16:42 Pulse Oximetry 93 06/07/21 16:42 Oxygen Delivery Method Room Air 06/07/21 16:42 Oxygen Flow Rate 0 06/07/21 16:42 Pain Level 10 06/07/21 16:45
[2021-06-07 17:37] LABS: Source Nasal/Nares
[2021-06-07 17:39] LABS: Abs Immature Grans 0.17 10^3/uL (0.0-0.06); Absolute Basophil Count 0.02 10^3/uL (0.0-0.2); Absolute Eosinophil Count 0.04 10^3/uL (0.0-0.7); Absolute Lymphocyte Count 0.92 10^3/uL (1.2-3.4); Absolute Monocyte Count 0.43 10^3/uL (0.1-0.8); Absolute Neutrophil Count 6.58 10^3/uL (1.2-6.7); Basophils % 0.2; Eosinophils % 0.5; HGB 9.9 g/dL (11.2-15.7); Immature Grans % 2.1; Lymphocytes % 11.3; MCH 28.3 pg (27.0-33.0); MCHC 30.9 % (32.0-36.0); MCV 91.4 fL (80-95); MPV 9.7 fL (8.0-11.0); Monocytes % 5.3; Neutrophils % 80.6; Nucleated RBC 0 %; Platelet Count 149 10^3/uL (130-400); RDW 15.4 % (11.7-14.6); WBC 8.16 10^3/uL (4.4-10.8)
[2021-06-07 17:40] LABS: Bilirubin Negative (Negative); Blood Negative (Negative); Clarity Clear (Clear); Glucose Negative (Negative); Ketones Negative (Negative); Leukocyte Esterase Trace (Negative); Nitrite Negative (Negative); Urobilinogen 0.2 EU/dL (Up TO 0.2)
[2021-06-07 17:51] LABS: Bacteria Many HPF (Negative); C & S Indicated? Yes; Casts 5-10 Hyaline LPF (Negative); Crystals Negative HPF (Negative); Epithelial Cells Few HPF (Negative); Mucus Negative (Negative); RBC 0-2 HPF (0-2); WBC 20-50 HPF (0-5)
[2021-06-07 18:00] LABS: ALT 20 U/L (14-59); AST 16 U/L (15-37); Albumin 3.7 g/dL (3.4-5.0); Alkaline Phosphatase 96 U/L (46-116); Anion Gap 8.5 mmol/L (3-11); BUN 62 mg/dL (7-18); Bilirubin, Total 0.3 mg/dL (0.2-1.0); CO2 30.5 mmol/L (21.0-32.0); CREATININE 1.8 mg/dL (0.55-1.02); Calcium 8.8 mg/dL (8.5-10.1); Chloride 102 mmol/L (98-107); Glucose 159 mg/dL (74-106); Magnesium 2.2 mg/dL (1.8-2.4); NT-proBNP 3804 pg/mL (<300); Potassium 4.1 mmol/L (3.5-5.1); Sodium 141 mmol/L (136-145); Total Protein 7.6 g/dL (6.4-8.2); Troponin I < 50 ng/L (<or=60)
[2021-06-07 18:43] LABS: COVID-19 PCR Negative (Negative)
[2021-06-07] MEDS: Furosemide 20 MG/2 ML VIAL IVP (18:51)
--- NOTE | 2021-06-07 19:18 | DI.VRAD_ITS ---
PROCEDURE INFORMATION: Exam: XR Chest Exam date and time: 06/07/2021 6:24 PM Age: 81 years old Clinical indication: Shortness of breath; Prior surgery; Surgery date: 6+ months; Surgery type: Cabg; Patient HX: SOB, pui TECHNIQUE: Imaging protocol: XR of the chest. Views: 1 view. COMPARISON: CR XR CHEST 2V PA LATERAL 08/23/2020 5:29 PM FINDINGS: Lungs: There are increased linear opacities noted throughout the bilateral lung regalado, concerning for mild pulmonary edema. No significant consolidation. Pleural spaces: No significant pleural effusion. Heart/Mediastinum: No severe cardiomegaly. Bones/joints: There is evidence of prior sternotomy procedure. IMPRESSION: 1. Findings suggestive of mild pulmonary edema. 2. No significant consolidation. Dictated and Authenticated by: Maribell Tierney MD. Ordering:MOLLY Corral MD
[2021-06-07 20:41] LABS: Troponin I < 50 ng/L (<or=60)
[2021-06-07] MEDS: Cephalexin 500 MG CAP PO (20:44)
== END 2021-06-07 20:59 | disposition home or self-care (01) ==
PROVIDERS: Emergency Provider Registered Nurse Emergency; PCP Family Medicine
DX: I13.0 Hypertensive heart and chronic kidney disease with heart failure and stage 1 through stage 4 chronic kidney disease, or unspecified chronic kidney disease (principal); I50.33 Acute on chronic diastolic (congestive) heart failure; N18.30 Chronic kidney disease, stage 3 unspecified; E11.22 Type 2 diabetes mellitus with diabetic chronic kidney disease; Z79.4 Long term (current) use of insulin; N39.0 Urinary tract infection, site not specified; B96.1 Klebsiella pneumoniae [K. pneumoniae] as the cause of diseases classified elsewhere; I25.10 Atherosclerotic heart disease of native coronary artery without angina pectoris; R06.02 Shortness of breath
CPT/HCPCS: 36415; 80053; 87077; 87635; 93005; 96374; 99284; 71045; 81003; 81015; 83735; 83880; 84484; 85025; 87086; 87186; 93010; J1941

== ENCOUNTER 2021-06-25 14:46 | Emergency (ER) | payer MEDICARE, MEDICAID, SELFPAY ==
[2021-06-25] VITALS (19 sets, daily range): BP systolic 122–190; BP diastolic 37–142; PULSE 56–70; RESP 11–27; TEMP 36.5–36.6; O2SAT 97–100
--- NOTE | 2021-06-25 14:45 | RT.EKG_ITS ---
APPROVED REPORT Exam: Resting ECG Reason for Exam: DYSPNEA Patient Location: E HR:59 bpm ECG Measurements Heart Rate 59 AXIS AK 156 P 53 QRSd 102 QRS 50 QT 464 T 55 QTc 459 Conclusion Sinus bradycardia...rate< 60 Abnormal T, consider ischemia, lateral leads...T <-0.20mV, I aVL V5 V6 sinus bradycardia, normal axis, motion artifact in V5
[2021-06-25 15:29] LABS: Abs Immature Grans 0.15 10^3/uL (0.0-0.06); Absolute Basophil Count 0.03 10^3/uL (0.0-0.2); Absolute Eosinophil Count 0.06 10^3/uL (0.0-0.7); Absolute Lymphocyte Count 0.72 10^3/uL (1.2-3.4); Absolute Monocyte Count 0.35 10^3/uL (0.1-0.8); Absolute Neutrophil Count 7.85 10^3/uL (1.2-6.7); Basophils % 0.3; Eosinophils % 0.7; HCT 32.9 % (36.0-46.0); Immature Grans % 1.6; Lymphocytes % 7.9; MCH 29.1 pg (27.0-33.0); MCHC 30.4 % (32.0-36.0); MCV 95.6 fL (80-95); MPV 9.9 fL (8.0-11.0); Monocytes % 3.8; Neutrophils % 85.7; Platelet Count 148 10^3/uL (130-400); RBC 3.44 10^6/uL (3.93-5.22); RDW 15.2 % (11.7-14.6); RDW-SD 53.4 fL; WBC 9.16 10^3/uL (4.4-10.8)
--- NOTE | 2021-06-25 15:40 | W.ED.GENAD ---
Discharge Plan Disposition Patient Disposition: HOME Condition: Improving Discharge Details Clinical Impression: CHF exacerbation, Fluid overload Primary Care Provider: Perry Graham ED Provider: Doug Rowe Home Meds and New Rx's Prescriptions: Continued gabapentin 100 mg capsule 100 mg PO TID 0RF meclizine 25 mg tablet 25 mg PO DAILY PRN0RF nystatin 100,000 unit/gram cream 1 applic topical TID PRN0RF tramadol 50 mg tablet 50 mg PO QHS PRN0RF Brilinta 90 MG tablet 90 mg PO BID 0RF Label Comments: sucralfate [Carafate] 1 gram Tablet 1 g PO QID 0RF sertraline 100 MG tablet 200 mg PO DAILY 0RF levothyroxine [Synthroid] 150 MCG tablet 150 mcg PO DAILY AM 0RF spironolactone 25 MG tablet 25 mg PO DAILY AM 0RF Label Comments: 10/09/17 pt not taking ferrous sulfate 325 mg (65 mg iron) Tablet 325 mg PO DAILY 0RF ipratropium-albuterol 0.5 mg-3 mg(2.5 mg base)/3 mL solution for nebulization 3 ml INHALATION Q4H PRN PRN (Reason: Shortness Of Breath) 0RF Label Comments: INHALE THE CONTENTS OF 1 VIAL VIA NEBULIZER EVERY 4 HOURS NEEDED dicyclomine 20 mg Tablet 20 mg PO QID PRN PRN (Reason: Abdominal Pain) 0RF pramipexole 1 mg tablet 0.5 mg PO BID 0RF Label Comments: TAKE 1 TABLET BY MOUTH TWICE A DAY amlodipine 5 mg Tablet 5 mg PO DAILY 0RF omeprazole 40 mg capsule,delayed release(DR/EC) 40 mg PO BID 0RF Label Comments: TK 1 C PO BID fluticasone propion-salmeterol [Advair Diskus] 100-50 mcg/dose blister with device 1 inh INHALATION BID 0RF Label Comments: INL 1 PUFF PO BID Acidophilus Tablet,Chewable 1 tab PO DAILY 0RF levalbuterol tartrate [Xopenex HFA] 45 mcg/actuation HFA aerosol inhaler 2 puff INHALATION Q4H PRN PRN (Reason: Wheezing) 0RF Label Comments: INL 2 PFS PO Q 4 H PRN cholecalciferol (vitamin D3) [Vitamin D3] 25 mcg (1,000 unit) tablet 1,000 unit PO DAILY 0RF Label Comments: TK 2 TS PO ONCE D prednisone 5 mg tablet 5 mg PO DAILY 0RF Label Comments: TK 3 TS PO QD DIRECTED nitroglycerin 0.4 mg Tablet, Sublingual 0.4 mg SUBLINGUAL Q5M PRN0RF loratadine 10 mg Tablet 10 mg PO DAILY 0RF bumetanide 1 mg tablet 2 mg PO BID 0RF metoprolol succinate 100 mg Tablet Extended Release 24 Hr 100 mg PO DAILY 0RF atorvastatin 20 mg Tablet 20 mg PO QHS 0RF acetaminophen [Tylenol Extra Strength] 500 mg tablet 1,000 mg PO Q8H Qty: 180 0RF folic acid 1 mg tablet 1 mg PO DAILY Qty: 30 0RF fentanyl 25 mcg/hr patch 72 hour 1 patch transdermal Q72H Qty: 1 0RF Rx Instructions: disp 1 patch Discharge Instructions Instructions: Heart Failure (ED), Pulmonary Edema (ED) Additional Instructions: Please take your medications as prescribed. Return to the emergency department for worsening shortness of breath, chest pain, weakness, or other abnormal symptoms. Please be seen by your primary care doctor next week Medical Decision Making 81-year-old female history of CHF presents with bilateral pitting edema to lower extremities, worsening shortness of breath, orthopnea, decreased urine output, quiet lung sounds bilaterally, is on 1.5 L nasal cannula, at home she is on 2 L nasal cannula, slightly hypertensive, no acute distress at this time however high clinical suspicion for fluid overload state in the setting of CHF exacerbation versus must consider ACS versus unlikely PE versus less likely aortic pathology or pneumonia. Screening labs EKG chest x-ray likely diuresis, patient did have some urinary incontinence in the bed is able to urinate 16: 58 patient has been able to urinate. Blood pressure is improved, no respiratory distress, on less oxygen here than she has at home. Patient feels comfortable going home, has home health aide that comes in the certified prosthetist stays into the early afternoon, then family comes every evening to bring her dinner, given home care instructions and return precautions will be given take-home bottle of Lasix low-dose for the next 2 to 3 days for home diuresis. Potassium is normal. HPI General Date/Time Provider Initiated Documentation: 06/25/21 15:06. HPI Narrative: 81-year-old female history of CHF presents with weight gain over the last couple of days, shortness of breath, orthopnea, and decreased urination, she does take Lasix at home, does have history of coronary bypass. Related Data Home Medications Medication Instructions Recorded Confirmed ticagrelor 90 mg tablet (Brilinta) 90 mg PO BID 03/11/13 06/25/21 sertraline 100 mg tablet 200 mg PO DAILY 05/17/16 06/25/21 levothyroxine 150 mcg tablet 150 mcg PO DAILY AM 10/09/17 06/25/21 (Synthroid) spironolactone 25 mg tablet 25 mg PO DAILY AM 10/09/17 06/25/21 sucralfate 1 gram tablet (Carafate) 1 g PO QID 03/05/18 06/25/21 Lactobacillus acidophilus 1 tab PO DAILY 12/03/19 06/25/21 (Acidophilus) amlodipine 5 mg tablet 5 mg PO DAILY 12/03/19 06/25/21 cholecalciferol (vitamin D3) 25 1,000 unit PO DAILY 12/03/19 06/25/21 mcg (1,000 unit) tablet (Vitamin D3) dicyclomine 20 mg tablet 20 mg PO QID PRN PRN 12/03/19 06/25/21 ferrous sulfate 325 mg (65 mg 325 mg PO DAILY 12/03/19 06/25/21 iron) tablet fluticasone 100 mcg-salmeterol 50 1 inh INHALATION BID 12/03/19 06/25/21 mcg/dose blistr powdr for inhalation (Advair Diskus) ipratropium 0.5 mg-albuterol 3 mg 3 ml INHALATION Q4H PRN PRN 12/03/19 06/25/21 (2.5 mg base)/3 mL nebulization soln levalbuterol tartrate 45 2 puff INHALATION Q4H PRN PRN 12/03/19 06/25/21 mcg/actuation aerosol inhaler (Xopenex HFA) omeprazole 40 mg capsule,delayed 40 mg PO BID 12/03/19 06/25/21 release pramipexole 1 mg tablet 0.5 mg PO BID 12/03/19 06/25/21 bumetanide 1 mg tablet 2 mg PO BID 03/03/20 06/25/21 loratadine 10 mg tablet 10 mg PO DAILY 03/03/20 06/25/21 nitroglycerin 0.4 mg sublingual 0.4 mg SUBLINGUAL Q5M PRN 03/03/20 06/25/21 tablet metoprolol succinate 100 mg 100 mg PO DAILY 11/22/20 06/25/21 tablet,extended release 24 hr acetaminophen 500 mg tablet 1,000 mg PO Q8H #180 tab 12/16/20 06/25/21 (Tylenol Extra Strength) atorvastatin 20 mg tablet 20 mg PO QHS 12/16/20 06/25/21 fentanyl 25 mcg/hr transdermal 1 patch TRANSDERMAL Q72H #1 ea 12/16/20 06/25/21 patch folic acid 1 mg tablet 1 mg PO DAILY #30 tab 12/16/20 06/25/21 meclizine 25 mg tablet 25 mg PO DAILY PRN 12/17/20 06/25/21 nystatin 100,000 unit/gram topical 1 applic TOPICAL TID PRN 12/17/20 06/25/21 cream tramadol 50 mg tablet 50 mg PO QHS PRN 12/17/20 06/25/21 gabapentin 100 mg capsule 100 mg PO TID 12/28/20 06/25/21 prednisone 5 mg tablet 5 mg PO DAILY tab 12/28/20 06/25/21 Previous Rx's Medication Instructions Recorded acetaminophen 500 mg tablet 1,000 mg PO Q8H #180 tab 12/16/20 (Tylenol Extra Strength) fentanyl 25 mcg/hr transdermal 1 patch TRANSDERMAL Q72H #1 ea 12/16/20 patch folic acid 1 mg tablet 1 mg PO DAILY #30 tab 12/16/20 Allergies Allergy/AdvReac Type Severity Reaction Status Date / Time aspirin Allergy Severe Anaphylaxsi Verified 06/25/21 15:09 s morphine Allergy Intermediate Skin Rash Verified 06/25/21 15:09 NSAIDS (Non-Steroidal Allergy Intermediate Skin Rash Verified 06/25/21 15:09 Anti-Inflamma Sulfa (Sulfonamide Allergy Intermediate Skin Rash Verified 06/25/21 15:09 Antibiotics) Quinidine-Quinine Analogues AdvReac Intermediate high fever Verified 06/25/21 15:09 (Cincho tetanus and diphtheria AdvReac Intermediate Swelling/Ed Verified 06/25/21 15:09 toxoids rachel [Tetanus&Diphtheria Toxoid] NADIYA Inhibitors AdvReac Mild cough Verified 06/25/21 15:09 General Stated Complaint: SOB ELISE: 3 Review of Systems Narrative: Review of Systems Constitutional: Weight gain Eyes: negative ENT: negative Cardiovascular: negative Respiratory: Shortness of breath Gastrointestinal: negative : negative Musculoskeletal: negative Skin: negative Neurologic: negative Psych: negative PFSH All Active Problems (Updated 06/25/21 @ 17:01 by Doug Rowe MD) CHF exacerbation (Acute) CHF exacerbation (Acute) Fluid overload (Acute) Walker as ambulation aid (Acute) Anticoagulated (Acute) Frequent falls (Chronic) falling on average 1-2 x per month since Feb 2021 High blood pressure (Chronic) Headache (Acute) Arthritis of right glenohumeral joint (Acute) Costochondritis (Acute) CHF (congestive heart failure) (Chronic) HFPEF w/ LVEF 65% per echo from 04/24/2019. RV is dilated w/ apical hypokinesis, biatrial enlargement, moderate aortic stenosis, severe PHTN (RVSP 75 TO 80 MM) Discharge planning issues (Acute) Dislocation of right shoulder joint (Chronic) Head contusion (Acute) Fall (Acute) Chronic GERD (Acute) Cellulitis of left leg (Acute) Skin tear of left lower leg without complication (Acute) H/O hernia repair (Chronic) Lives alone with help available (Chronic) has CONGRESSIONAL AIDE from 8 am to 1 pm daughter lives near by Hernia of abdominal wall (Chronic) recurrent problem; LUQ Mar 2020 Decreased range of motion (Chronic) bilateral shoulders Bilateral shoulder pain (Chronic) rotator cuff tears plus OA? 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 Hypokalemia (Acute) Anemia (Chronic) DVT prophylaxis (Chronic) Pulmonary embolism (Chronic) PVD (peripheral vascular disease) (Chronic) Anemia (Chronic) Cholelithiasis without cholecystitis (Chronic) LVH (left ventricular hypertrophy) (Chronic) CAD (coronary artery disease) (Chronic) CABG approximately ten years ago; recently cardiac cath with single stent placement on inferior portion of heart down at [facility]. Dr. Navarro follows patient. Asthma (Chronic) Chronic hypoxemic respiratory failure and patient is on 2 liters of oxygen chronically at rest and 3 liters with exertion. Low back pain (Chronic) Peripheral vascular disease (Chronic) CKD (chronic kidney disease), stage III (Chronic) Baseline creatine 1.1 to 1.3 Anxiety (Chronic) Hypothyroidism (Chronic) Type 2 diabetes mellitus (Chronic) On insulin. Vitamin B 12 deficiency (Chronic) Polymyalgia rheumatica (Chronic) Venous stasis dermatitis of both lower extremities (Chronic) Compression fracture of L1 lumbar vertebra (Chronic ~07/2017) Falls frequently (Acute) Decreased performance of ADLs (Acute) Aortic stenosis, moderate (Chronic ~07/2017) Lumbar compression fracture (Acute ~03/05/18) Medical History Acute prerenal azotemia Altered mental state B-cell lymphoma Candidiasis of mouth Candidiasis of skin Discharge planning issues HLD (hyperlipidemia) Hx of CABG (~2000) 2000 Hypertensive disorder Pneumonia Surgical History S/P CABG x 2 Status post revision of total replacement of both knees Family History Daughter Diabetes Son Diabetes Obesity Mother , age 49 of breast cancer Breast cancer Father , age 68 of stroke Stroke Hypertension Sister Seizure disorder Sister , from complications of her RALucy not clear how Rheumatoid arthritis Brother Leukemia Brother Heart disease Sister Dementia Social History Smoking/Tobacco Use Status: Never Second Hand Exposure: No Smoking risk assessment performed?: Yes Alcohol Intake: never Drug use: Never Substance use type: does not use Caregiver/Support person: Yes (during the day) Household members: other Details: hired young woman for 5 hrs/day, 5 days/wk; family around too Housing: house Number of Children: 2 number of grandchildren: 5 Communication Needs: Hard of Hearing and Corrective Lenses Education Level: high school Do you need help understanding health information?: Always 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, 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, 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 Pets and animals: Yes Pets and animals: cat(s) Current gender identity: female What is your relationship status?: How often do you talk on the phone with friends or family?: three or more times per week How often do you get together with friends or relatives?: three or more times per week Panel score (0-1 are the most socially isolated patients): 1 What type of physical activity do you participate in: none and sedentary lifestyle Special toi needs: No Agree to transfusion: Yes Seatbelt use: always Working smoke detector in home: Yes Fire extinguisher in home: Yes Do you feel safe at home: Yes Do you feel safe in your relationship?: Yes Additional Social history: Lives alone in her own home since February 2018. Prior to that was living with her daughter for about a year. She was at a correction in [place] prior to moving in with her daughter. NEVER wants to go to a correction again. Never wants to go to [facility]. Definitely the matriarch of her family. Has help now from Sarah, who helps her with ADLs. Keeps on eye on her diet. has assistance 5 days per week now. Exam Narrative Exam Narrative: Physical Examination General: alert, awake, cooperative, resting comfortably, no acute distress HEENT: normocephalic, atraumatic; PERRL, EOM intact, conjunctiva normal; no nasal discharge; moist mucous membranes, oral and pharyngeal mucosa normal, tolerating secretions Neck: supple, trachea midline; full ROM Chest: normal to inspection Respiratory: normal respiratory effort, speaking in full sentences, quiet bilaterally to auscultation, no wheezing, rales or rhonchi Cardiac: regular rate, regular rhythm, S1S2 intact, no murmurs rubs or gallops GI: abdomen soft, non-tender, non-distended; no palpable mass or hepatosplenomegaly Skin: no lesions, rashes or trauma appreciated Neuro: AAOx3, normal speech, moving all extremities Extremities: Bilateral pitting edema to level of ankles/shins Psych: Appropriate mood and affect Course Vital Signs Vital signs: Vital Signs Temperature 36.5 C 06/25/21 14:55 Pulse 70 06/25/21 14:55 Respiratory Rate 18 06/25/21 14:55 Blood Pressure 177/94 H 06/25/21 14:55 Pulse Oximetry 97 06/25/21 14:55 Temperature 36.5 C 06/25/21 14:55 Temperature Source Tympanic 06/25/21 14:55 Pulse 70 06/25/21 14:55 Respiratory Rate 18 06/25/21 14:55 Respiratory Effort 06/25/21 15:01 Respiratory Depth Normal 06/25/21 15:01 Respiratory Pattern Normal 06/25/21 15:01 Blood Pressure 177/94 H 06/25/21 14:55 Blood Pressure Position Supine 06/25/21 14:55 Pulse Oximetry 97 06/25/21 14:55 Oxygen Delivery Method Nasal Cannula 06/25/21 14:55 Oxygen Flow Rate 2 06/25/21 14:55 Pain Level 7 06/25/21 14:55 Lab/Test Results Lab/Test Results: Laboratory Tests Range/Units 06/25/21 15:04 WBC (4.4-10.8) 10^3/uL 9.16 RBC (3.93-5.22) 10^6/uL 3.44 L Hgb (11.2-15.7) g/dL 10.0 L Hct (36.0-46.0) % 32.9 L MCV (80-95) fL 95.6 H MCH (27.0-33.0) pg 29.1 MCHC (32.0-36.0) % 30.4 L RDW (11.7-14.6) % 15.2 H Plt Count (130-400) 10^3/uL 148 MPV (8.0-11.0) fL 9.9 Immature Gran % 1.6 Neutrophils % 85.7 Lymphocytes % 7.9 Monocytes % 3.8 Eosinophils % 0.7 Basophils % 0.3 Nucleated RBC % (0.0-0.3) % 0.0 Absolute Neutrophils (1.2-6.7) 10^3/uL 7.85 H Absolute Lymphocytes (1.2-3.4) 10^3/uL 0.72 L Absolute Monocytes (0.1-0.8) 10^3/uL 0.35 Absolute Eosinophils (0.0-0.7) 10^3/uL 0.06 Absolute Basophils (0.0-0.2) 10^3/uL 0.03
[2021-06-25 15:47] LABS: PTT Activated 21.4 sec (21.0-27.5); Prothrombin Time 10.3 sec (9.3-11.0)
--- NOTE | 2021-06-25 15:49 | DI.RAD_ITS ---
Exam(s) XR PORTABLE CHEST AP EXAM: XR PORTABLE CHEST AP CLINICAL HISTORY: sob, hx of CHF TECHNIQUE: 2D digital imaging was performed. COMPARISON: CR XR CHEST 2V PA LATERAL from 07/22/[address] THORACIC SPINE WO from 05/10/2019 CR,XR XR CHEST 2V PA LATERAL from 12/02/2019 CR,XR XR CHEST 2V PA LATERAL from 08/23/[address] ABDOMEN PELVIS WO from 12/15/[address] UPPER EXTREMITY RT WO from 12/16/2020 CR XR SHOULDER RT COMPLETE 2+V from 12/16/2020 CR,XR XR PORTABLE CHEST AP from 06/07/2021 FINDINGS: Exam is limited by poor pulmonary inflation. Sternal wires are noted. Leads overlie the chest. Hea rt is mildly enlarged. There is pulmonary artery prominence. The question of increased interstitial markings which could be chronic. No focal infiltrate, effusion or pneumothorax is seen. There are degenerative changes in the shoulders and spine. IMPRESSION: Question of mild pulmonary edema versus chronic findings.. DATA REPOSITORY: RADIATION DOSE DELIVERED:
[2021-06-25 15:50] LABS: ALT 22 U/L (14-59); AST 18 U/L (15-37); Albumin 3.8 g/dL (3.4-5.0); Alkaline Phosphatase 85 U/L (46-116); Anion Gap 3.9 mmol/L (3-11); BUN 50 mg/dL (7-18); Bilirubin, Total 0.4 mg/dL (0.2-1.0); CO2 36.1 mmol/L (21.0-32.0); CREATININE 1.7 mg/dL (0.55-1.02); Calcium 9.3 mg/dL (8.5-10.1); Chloride 102 mmol/L (98-107); Estimated GFR 28.85 (mL/min/1.73m2); Glucose 188 mg/dL (74-106); NT-proBNP 4845 pg/mL (<300); Potassium 4.1 mmol/L (3.5-5.1); Sodium 142 mmol/L (136-145); Total Protein 7.6 g/dL (6.4-8.2); Troponin I < 50 ng/L (<or=60)
[2021-06-25] MEDS: Furosemide 40 MG/4 ML VIAL IVP (15:54)
[2021-06-25] MEDS: Furosemide 20 MG TAB 60 MG PO (17:17)
--- NOTE | 2021-06-26 18:35 | NUR.NOTE ---
Granddaughter called regarding clarification of yesterday's discharge instruction. Advised patient's granddaughter to bring patient back to er if she had increased sob or cp or any other concerns. granddaughter advised that patient is not complaining of increased sob and was able to eat and drink without difficulty and patient had lost some weight today.
== END 2021-06-25 17:44 | disposition home or self-care (01) ==
PROVIDERS: Emergency Provider Emergency Medicine; PCP Family Medicine
DX: I13.0 Hypertensive heart and chronic kidney disease with heart failure and stage 1 through stage 4 chronic kidney disease, or unspecified chronic kidney disease (principal); I50.33 Acute on chronic diastolic (congestive) heart failure; N18.30 Chronic kidney disease, stage 3 unspecified; E11.22 Type 2 diabetes mellitus with diabetic chronic kidney disease; Z79.4 Long term (current) use of insulin; E87.70 Fluid overload, unspecified
CPT/HCPCS: 36415; 80053; 93005; 96374; 99284; 71045; 83880; 84484; 85025; 85610; 85730; 93010; J1940